=== PATIENT | male | born 1955 | race African-American/Black ===

== ENCOUNTER → 2016-07-07 | Outpatient (CLI) | payer OTHER ==
[2016-07-07 12:13] LABS: APPEARANCE,URINE CLEAR; BILIRUBIN,URINE NEGATIVE (NEGATIVE); GLUCOSE, URINE 150 mg/dL (NEGATIVE); KETONES,URINE NEGATIVE (NEGATIVE); LEUKOCYTE ESTERASE,URINE NEGATIVE (NEGATIVE); NITRITE,URINE NEGATIVE (NEGATIVE); PROTEIN,URINE NEGATIVE (NEGATIVE); UROBILINOGEN,URINE NEGATIVE mg/dL (<2.0)
[2016-07-07 12:24] LABS: ABSOLUTE EOSINOPHILS # (AUTO) 0.1 10^3/uL (0.0-0.6); ABSOLUTE LYMPHOCYTES (AUTO) 1.9 10^3/uL (0.5-4.7); ABSOLUTE MONOCYTES (AUTO) 0.7 10^3/uL (0.1-1.4); ABSOLUTE NEUT (AUTO) 5.1 10^3/uL (1.7-8.2); BASOPHILS % (AUTO) 0.5 % (0-2); EOSINOPHILS % (AUTO) 1.3 % (0-6); LYMPHOCYTES % (AUTO) 23.9 % (13-45); MEAN CORPUSCULAR HEMOGLOBIN 29.4 pg (27.0-33.4); MEAN CORPUSCULAR HGB CONC 33.3 g/dL (32.0-36.0); MEAN CORPUSCULAR VOLUME 88 fl (80-97); MONOCYTES % (AUTO) 9.3 % (3-13); RED BLOOD COUNT 4.77 10^6/uL (4.35-5.55); RED CELL DISTRIBUTION WIDTH 14.2 % (11.5-14.0); WHITE BLOOD COUNT 7.8 10^3/uL (4.0-10.5)
[2016-07-07 12:41] LABS: ANION GAP 12 (5-19); BLOOD UREA NITROGEN 12 mg/dL (7-20); CALCIUM 9.2 mg/dL (8.4-10.2); CARBON DIOXIDE 29 mmol/L (22-30); CHLORIDE 97 mmol/L (98-107); CREATININE RESULT 0.66 mg/dL (0.52-1.25); GLUCOSE 209 mg/dL (75-110); POTASSIUM 4.6 mmol/L (3.6-5.0); SODIUM 137.8 mmol/L (137-145)
--- NOTE | 2016-07-07 20:21 | EKG REPORT ---
SEVERITY:- BORDERLINE ECG - SINUS RHYTHM PROBABLE LEFT ATRIAL ABNORMALITY BORDERLINE T ABNORMALITIES, INFERIOR LEADS : Confirmed by: Brad Piper 07-Jul-2016 20:21:10
== END ==
LOC: OD 10:34
PROVIDERS: ATTEND Orthopaedic Surgery
DX: Z01.818 Encounter for other preprocedural examination (principal); Z01.810 Encounter for preprocedural cardiovascular examination; Z01.811 Encounter for preprocedural respiratory examination; Z01.812 Encounter for preprocedural laboratory examination
CPT/HCPCS: 36415; 71020; 80048; 81001; 83036; 85025; 93005; 93010

== ENCOUNTER 2016-07-17 04:11 | Emergency (ER) | payer OTHER ==
[2016-07-17] MEDS ORDERED: METHYLPREDNISOLONE INJ 125 MG/2 ML SDV IV ONE (04:52)
[2016-07-17] MEDS ORDERED: IPRATROPIUM/ALBUTEROL 0.5-2.5 MG/3 ML AMPUL NEB ONE ×2 (04:53→05:58)
[2016-07-17 05:55] LABS: ABSOLUTE EOSINOPHILS # (AUTO) 0.1 10^3/uL (0.0-0.6); ABSOLUTE LYMPHOCYTES (AUTO) 1.7 10^3/uL (0.5-4.7); ABSOLUTE MONOCYTES (AUTO) 0.6 10^3/uL (0.1-1.4); ABSOLUTE NEUT (AUTO) 4.9 10^3/uL (1.7-8.2); BASOPHILS % (AUTO) 0.6 % (0-2); HEMATOCRIT 39.6 % (37.9-51.0); HEMOGLOBIN 12.9 g/dL (13.5-17.0); HGB HCT DIFFERENCE -0.9; LYMPHOCYTES % (AUTO) 23.7 % (13-45); MEAN CORPUSCULAR HEMOGLOBIN 29.2 pg (27.0-33.4); MEAN CORPUSCULAR HGB CONC 32.6 g/dL (32.0-36.0); MEAN CORPUSCULAR VOLUME 89 fl (80-97); MONOCYTES % (AUTO) 8.3 % (3-13); RED BLOOD COUNT 4.43 10^6/uL (4.35-5.55); RED CELL DISTRIBUTION WIDTH 14.1 % (11.5-14.0); SEGMENTED NEUTROPHILS % (AUTO) 66.4 % (42-78); WHITE BLOOD COUNT 7.3 10^3/uL (4.0-10.5)
--- NOTE | 2016-07-17 06:35 | ER Document Report ---
ED Respiratory Problem - General Chief Complaint: Breathing Difficulty Stated Complaint: BREATHING DIFFICULTY Mode of Arrival: Ambulatory Information source: Patient Notes: 60 y/o M with hx of COPD presents to ED c/o shortness of breath. Pt reports woke up this morning at approximately 0300 sob not improved with home nebulizer. Reports has had productive cough over the last 2 days with whitish productive sputum. Reports usually has cough but sputum seems to be more than usual. Denies fever, chest pain, hemoptysis, n/v. TRAVEL OUTSIDE OF THE [place] IN LAST 30 DAYS: No - HPI Patient complains to provider of: COPD, Cough, Short of breath Onset: This morning Duration: Worse/persistent Initiating Event: URI Quality of pain: No pain Severity: Mild Pain Level: Denies Context: Hx COPD Short of Breath: Mild Cough: Productive Sputum amount: Small Sputum color: White At home treatment: Bronchodilators, Inhaled steroids Similar symptoms previously: Yes Recently seen / treated by doctor: No - Related Data Allergies/Adverse Reactions: codeine [Codeine] Allergy (Severe, Verified 07/17/16 04:26) Facial swelling hydrocodone bitartrate [From Vicodin] Allergy (Severe, Verified 07/17/16 04:26) Anaphylaxis acetaminophen [From Tylenol] Allergy (Verified 07/17/16 04:26) aspirin [Aspirin] Allergy (Verified 07/17/16 04:26) morphine [Morphine] Allergy (Verified 07/17/16 04:26) Past Medical History - General Information source: Patient - Social History Smoking Status: Former Smoker Chew tobacco use (# tins/day): No Frequency of alcohol use: None Drug Abuse: None Lives with: Family Family History: Arthritis, CAD - Mother and brother, CVA, DM, Hyperlipidemia, Hypertension, Malignancy Patient has suicidal ideation: No Patient has homicidal ideation: No - Past Medical History Cardiac Medical History: Reports: Hx Atrial Fibrillation, Hx Congestive Heart Failure, Hx Hypercholesterolemia, Hx Hypertension Pulmonary Medical History: Reports: Hx Asthma, Hx COPD, Hx Tuberculosis Neurological Medical History: Reports: Hx Cerebrovascular Accident Endocrine Medical History: Reports: Hx Diabetes Mellitus Type 2 Renal/ Medical History: Denies: Hx Peritoneal Dialysis GI Medical History: Reports: Hx Hepatitis - Hep C Musculoskeltal Medical History: Reports Hx Arthritis, Reports Hx Musculoskeletal Deformity, Reports Hx Musculoskeletal Trauma Psychiatric Medical History: Denies: Hx Depression Traumatic Medical History: Reports: Hx Fractures, Hx Spine Fracture Infectious Medical History: Reports: Hx Hepatitis - Hep C Past Surgical History: Reports: Hx Abdominal Surgery - Hernia repair, bowel resection, Hx Appendectomy, Hx Herniorrhaphy, Hx Oral Surgery, Hx Orthopedic Surgery - Spinal fusion. Meniscus repair. - Immunizations Immunizations up to date: Yes Hx Diphtheria, Pertussis, Tetanus Vaccination: Yes Hx Pneumococcal Vaccination: 04/12/13 Review of Systems - Review of Systems Constitutional: No symptoms reported EENT: No symptoms reported Cardiovascular: No symptoms reported Respiratory: See HPI Gastrointestinal: No symptoms reported Genitourinary: No symptoms reported Male Genitourinary: No symptoms reported Musculoskeletal: No symptoms reported Skin: No symptoms reported Hematologic/Lymphatic: No symptoms reported Neurological/Psychological: No symptoms reported -: Yes All other systems reviewed and negative Physical Exam - Vital signs Vitals: Temp Pulse Resp BP Pulse Ox 98.4 F 106 H 18 115/77 91 L 07/17/16 04:20 07/17/16 04:20 07/17/16 04:20 07/17/16 04:20 07/17/16 04:20 - General General appearance: Alert In distress: None - HEENT Head: Normocephalic, Atraumatic Eyes: Normal Pupils: PERRL - Respiratory Respiratory status: No respiratory distress. No: Labored, Tachypnea, Tripod position Chest status: Nontender, No pleuritic chest pain. No: Pain with cough, Pain with deep breathing Breath sounds: Productive cough, Rhonchi - mild scattered bilaterally, Wheezing - mild expiratory Chest palpation: Normal. No: Purulent sputum - Cardiovascular Rhythm: Regular Heart sounds: Normal auscultation Murmur: No Pulses: Normal: Radial Normal capillary refill: Yes - Abdominal Inspection: Normal, Obese Distension: No distension Bowel sounds: Normal Tenderness: Nontender Organomegaly: No organomegaly - Back Back: Normal, Nontender - Extremities General upper extremity: Normal inspection, Nontender, Normal color, Normal ROM , Normal strength, Normal temperature. No: Edema General lower extremity: Normal inspection, Nontender, Normal color, Normal ROM , Normal strength, Normal temperature, Normal weight bearing. No: Edema, Bereket' s sign - Neurological Neuro grossly intact: Yes Cognition: Normal Orientation: AAOx4 [place] Coma Scale Eye Opening: Spontaneous [place] Coma Scale Verbal: Oriented Juancarlos Coma Scale Motor: Obeys Commands Juancarlos Coma Scale Total: 15 Speech: Normal Motor strength normal: LUE, RUE, LLE, RLE Sensory: Normal - Skin Skin Temperature: Warm Skin Moisture: Dry Skin Color: Normal Course - Re-evaluation Re-evalutation: 07/17/16 06:49 Pt hemodynamically stable, in no distress, afebrile. chest xray unremarkable shows chronic scarring with no pneumonia or other significant findings. Pt received 125 mg Solumedrol and two DuoNeb treatments. Wheezing and ronchi resolved. Pt able to ambulate independently and speak in full sentences on room air without dyspnea or desaturation. States feels much better and would like to go home. Hyperglycemia on CMP pt reports has not taken home meds this morning. Pt appears stable for discharge and agrees with home care, follow-up, and strict ED return precautions. - Vital Signs Vital signs: Temp Pulse Resp BP Pulse Ox 97.3 F 104 H 24 H 131/68 H 93 07/17/16 06:56 07/17/16 06:56 07/17/16 06:56 07/17/16 06:56 07/17/16 06:56 Selected Entries 07/17/16 07/17/16 04:25 04:53 O2 Sat by Pulse 95 100 Oximetry - Laboratory Result Diagrams: 07/17/16 05:35 07/17/16 06:22 Laboratory results interpreted by me: 07/17/16 07/17/16 05:35 06:22 Hgb 12.9 L RDW 14.1 H Glucose 249 H Calcium 8.0 L - Diagnostic Test Radiology reviewed: Image reviewed, Reports reviewed Discharge - Discharge Clinical Impression: COPD exacerbation Condition: Stable Disposition: HOME, SELF-CARE Instructions: Chronic Obstructive Lung Disease ([facility]), Inhaled Bronchodilators ( [facility]), Azithromycin ([facility]), Steroid Medication Additional Instructions: Drink plenty of fluids. Continue using your home inhalers as directed by your primary care provider. Follow-up with your primary care provider in the next 1-2 days. Return to the Emergency Department for any return of or worsening symptoms or any concerns. Prescriptions: Azithromycin [Zithromax 250 mg Tablet] 250 mg PO ASDIR PRN #6 tablet PRN Reason: Prednisone [Deltasone 10 mg Tablet] 10 mg PO ASDIR PRN #21 tablet PRN Reason: Forms: Elevated Blood Pressure
[2016-07-17 06:54] LABS: ALANINE AMINOTRANSFERASE 27 U/L (21-72); ALBUMIN 3.5 g/dL (3.5-5.0); ALKALINE PHOSPHATASE 89 U/L (38-126); ANION GAP 11 (5-19); ASPARTATE AMINO TRANSFERASE 21 U/L (17-59); BILIRUBIN,DIRECT 0.2 mg/dL (0.0-0.4); BILIRUBIN,TOTAL 0.4 mg/dL (0.2-1.3); BLOOD UREA NITROGEN 12 mg/dL (7-20); CARBON DIOXIDE 26 mmol/L (22-30); CHLORIDE 102 mmol/L (98-107); CREATININE RESULT 0.59 mg/dL (0.52-1.25); GLUCOSE 249 mg/dL (75-110); POTASSIUM 4.3 mmol/L (3.6-5.0); SODIUM 139.1 mmol/L (137-145); TOTAL PROTEIN 6.3 g/dL (6.3-8.2)
[2016-07-17 06:57] VITALS: BP 131/68
== END 2016-07-17 07:16 | disposition home or self-care (01) ==
LOC: ER 04:11
DX: J44.1 Chronic obstructive pulmonary disease with (acute) exacerbation (principal); I48.91 Unspecified atrial fibrillation; I50.9 Heart failure, unspecified; E78.00 Pure hypercholesterolemia, unspecified; I11.0 Hypertensive heart disease with heart failure; E11.9 Type 2 diabetes mellitus without complications; Z86.73 Personal history of transient ischemic attack (TIA), and cerebral infarction without residual deficits; Z86.19 Personal history of other infectious and parasitic diseases; Z86.11 Personal history of tuberculosis; Z88.6 Allergy status to analgesic agent; Z98.1 Arthrodesis status
CPT/HCPCS: 94640 ×2; 99285; 96374; 36415; 85025; 80053; 71020; J2930; J7620

== ENCOUNTER 2016-07-22 01:13 | Emergency (ER) | payer OTHER ==
[2016-07-22] MEDS ORDERED: FLUCONAZOLE 100 MG TABLET PO ONE (03:11)
[2016-07-22] MEDS ORDERED: NYSTATIN 500000 UNIT/5 ML UDCUP PO ONE (03:12)
--- NOTE | 2016-07-22 03:37 | ER Document Report ---
ED General - General Chief Complaint: Sore Throat Stated Complaint: DIFFICULTY BREATHING Time seen by provider: 03:02 Mode of Arrival: Ambulatory Information source: Patient TRAVEL OUTSIDE OF THE [place] IN LAST 30 DAYS: No - HPI Notes: Patient with history of end-stage renal disease, peritoneal dialysis, COPD, diabetes presents with a report that he had a recent cough congestion 5 days ago and was seen and given steroids and Zithromax. Since taking these medications he now has recurrence of thrush which he has had before. He reports white plaques in his mouth and some mild pain with swallowing. He denies any difficulty breathing, chest pain, fever, chills. He states his cough and congestion is improved. - Related Data Allergies/Adverse Reactions: codeine [Codeine] Allergy (Severe, Verified 07/17/16 04:26) Facial swelling hydrocodone bitartrate [From Vicodin] Allergy (Severe, Verified 07/17/16 04:26) Anaphylaxis Past Medical History - Social History Smoking Status: Unknown if Ever Smoked Cigarette use (# per day): No Frequency of alcohol use: None Drug Abuse: None Lives with: Family Family History: Arthritis, CAD - Mother and brother, CVA, DM, Hyperlipidemia, Hypertension, Malignancy Patient has suicidal ideation: No Patient has homicidal ideation: No - Past Medical History Cardiac Medical History: Reports: Hx Atrial Fibrillation, Hx Congestive Heart Failure, Hx Hypercholesterolemia, Hx Hypertension Pulmonary Medical History: Reports: Hx Asthma, Hx COPD, Hx Tuberculosis Neurological Medical History: Reports: Hx Cerebrovascular Accident Endocrine Medical History: Reports: Hx Diabetes Mellitus Type 2 Renal/ Medical History: Denies: Hx Peritoneal Dialysis GI Medical History: Reports: Hx Hepatitis - Hep C Musculoskeltal Medical History: Reports Hx Arthritis, Reports Hx Musculoskeletal Deformity, Reports Hx Musculoskeletal Trauma Psychiatric Medical History: Denies: Hx Depression Traumatic Medical History: Reports: Hx Fractures, Hx Spine Fracture Infectious Medical History: Reports: Hx Hepatitis - Hep C Past Surgical History: Reports: Hx Abdominal Surgery - Hernia repair, bowel resection, Hx Appendectomy, Hx Herniorrhaphy, Hx Oral Surgery, Hx Orthopedic Surgery - Spinal fusion. Meniscus repair. - Immunizations Immunizations up to date: Yes Hx Diphtheria, Pertussis, Tetanus Vaccination: Yes Hx Pneumococcal Vaccination: 04/12/13 Review of Systems - Review of Systems Notes: REVIEW OF SYSTEMS: CONSTITUTIONAL : Denies fever, chills, or sweats. Denies recent illness. EENT: Denies eye, ear pain or symptoms. Denies nasal or sinus congestion or discharge. Mild pain on swallowing. CARDIOVASCULAR: Denies chest pain. Denies palpitations or racing or irregular heart beat. Denies ankle edema. RESPIRATORY: Denies cough, cold, or chest congestion. Denies shortness of breath, difficulty breathing. Occasional wheezing related to COPD history GASTROINTESTINAL: Denies abdominal pain or distention. Denies nausea, vomiting , or diarrhea. Denies blood in vomitus, stools, or per rectum. Denies black, tarry stools. Denies constipation. GENITOURINARY: Denies difficulty urinating, painful urination, burning, frequency, blood in urine, or discharge. MUSCULOSKELETAL: Denies back or neck pain or stiffness. Denies joint pain or swelling. SKIN: Denies rash, lesions or sores. HEMATOLOGIC : Denies easy bruising or bleeding. LYMPHATIC: Denies swollen, enlarged glands. NEUROLOGICAL: Denies confusion or altered mental status. Denies passing out or loss of consciousness. Denies dizziness or lightheadedness. Denies headache. Denies weakness or paralysis or loss of use of either side. Denies problems with gait or speech. Denies sensory loss, numbness, or tingling. Denies seizures. PSYCHIATRIC: Denies anxiety or stress. Denies depression, suicidal ideation, or homicidal ideation. ALL OTHER SYSTEMS REVIEWED AND NEGATIVE. Dictation was performed using [employer] voice recognition software Physical Exam - Vital signs Vitals: Temp Pulse Resp BP Pulse Ox 98.7 F 102 H 20 123/72 93 07/22/16 01:19 07/22/16 01:19 07/22/16 01:19 07/22/16 01:19 07/22/16 01:19 - Notes Notes: PHYSICAL EXAMINATION: GENERAL: Well-appearing, well-nourished and in no acute distress. HEAD: Atraumatic, normocephalic. EYES: Pupils equal round and reactive to light, extraocular movements intact, sclera anicteric, conjunctiva are normal. ENT: Nares patent, Moist mucous membranes. Oral thrush noted. No significant tongue swelling or posterior pharyngeal swelling. No evidence for Ar's. NECK: Normal range of motion, supple without lymphadenopathy LUNGS: Breath sounds clear to auscultation bilaterally and equal. No wheezes rales or rhonchi. HEART: Regular rate and rhythm without murmurs ABDOMEN: Soft, nontender, nondistended abdomen. No guarding, no rebound. No masses appreciated. Obese Musculoskeletal: Normal range of motion. No cyanosis. Trace bilateral lower extremity edema. NEUROLOGICAL: Cranial nerves grossly intact. Normal speech, normal gait. Normal sensory, motor exams PSYCH: Normal mood, normal affect. SKIN: Warm, Dry, normal turgor, no rashes or lesions noted. Course - Re-evaluation Re-evalutation: 07/22/16 03:35 Patient given nystatin and by mouth Diflucan. Blood sugar just under 300. 07/22/16 03:38 Hopefully, the thrush will also improve related to getting further out from the Zithromax antibiotic and the prednisone prescription. - Vital Signs Vital signs: Temp Pulse Resp BP Pulse Ox 98.7 F 102 H 20 123/72 93 07/22/16 01:19 07/22/16 01:19 07/22/16 01:19 07/22/16 01:19 07/22/16 01:19 - Laboratory Laboratory results interpreted by me: 07/22/16 03:05 POC Glucose 299 H Discharge - Discharge Clinical Impression: Thrush, Hyperglycemia, Destinee esophagitis Condition: Stable Disposition: HOME, SELF-CARE Additional Instructions: Oral Thrush You have thrush. This is a yeast infection of the mucous membranes in the mouth, caused by an organism called destinee. Typical symptoms are redness, tenderness, and white spots "stuck" on the membranes. Thrush often occurs after treatment with antibiotics, particularly in infants. In adults, the infection is unusual. It usually requires further evaluation for a possible hidden disease such as diabetes or a problem with the immune system. Thrush is treated with antifungal medication. The medicine is rubbed into the cheeks. Several days are required for healing. You should return if you do not improve as expected, or if any new or unusual symptoms develop. Watch her blood sugars closely. Drink plenty of water. Prescriptions: Nystatin [Mycostatin 500,000 Unit/5 ml Susp Udcup] 500,000 unit PO QID 20 Days
[2016-07-22 04:06] VITALS: BP 113/75
== END 2016-07-22 04:00 | disposition home or self-care (01) ==
LOC: ER 01:13
DX: J02.9 Acute pharyngitis, unspecified (principal); R06.00 Dyspnea, unspecified; B37.0 Candidal stomatitis; B37.81 Candidal esophagitis; E11.65 Type 2 diabetes mellitus with hyperglycemia; E11.22 Type 2 diabetes mellitus with diabetic chronic kidney disease; I13.2 Hypertensive heart and chronic kidney disease with heart failure and with stage 5 chronic kidney disease, or end stage renal disease; I50.9 Heart failure, unspecified; N18.6 End stage renal disease; I48.91 Unspecified atrial fibrillation; E78.00 Pure hypercholesterolemia, unspecified; J44.9 Chronic obstructive pulmonary disease, unspecified; Z86.19 Personal history of other infectious and parasitic diseases; Z86.73 Personal history of transient ischemic attack (TIA), and cerebral infarction without residual deficits; Z98.1 Arthrodesis status; Z88.6 Allergy status to analgesic agent; Z99.2 Dependence on renal dialysis
CPT/HCPCS: 82962; 99283

== ENCOUNTER 2016-08-03 07:02 | Inpatient (IN) | payer OTHER ==
[2016-08-20 12:39] LABS: HEMOGLOBIN 14.4 g/dL (13.5-17.0); HGB HCT DIFFERENCE -1.8; MEAN CORPUSCULAR HEMOGLOBIN 29.2 pg (27.0-33.4); MEAN CORPUSCULAR HGB CONC 32.1 g/dL (32.0-36.0); MEAN CORPUSCULAR VOLUME 91 fl (80-97); RED BLOOD COUNT 4.94 10^6/uL (4.35-5.55); RED CELL DISTRIBUTION WIDTH 13.9 % (11.5-14.0); WHITE BLOOD COUNT 8.1 10^3/uL (4.0-10.5)
[2016-08-20 12:43] LABS: APPEARANCE,URINE CLEAR; BILIRUBIN,URINE NEGATIVE (NEGATIVE); GLUCOSE, URINE NEGATIVE (NEGATIVE); KETONES,URINE NEGATIVE (NEGATIVE); LEUKOCYTE ESTERASE,URINE NEGATIVE (NEGATIVE); NITRITE,URINE NEGATIVE (NEGATIVE); PROTEIN,URINE NEGATIVE (NEGATIVE); URINE SPECIFIC GRAVITY 1.004; UROBILINOGEN,URINE NEGATIVE mg/dL (<2.0)
[2016-08-20 12:56] LABS: ANION GAP 16 (5-19); BLOOD UREA NITROGEN 9 mg/dL (7-20); CALCIUM 9.2 mg/dL (8.4-10.2); CARBON DIOXIDE 25 mmol/L (22-30); CHLORIDE 98 mmol/L (98-107); CREATININE RESULT 0.72 mg/dL (0.52-1.25); GLUCOSE 190 mg/dL (75-110); POTASSIUM 4.3 mmol/L (3.6-5.0); SODIUM 138.8 mmol/L (137-145)
[2016-09-12] MEDS ORDERED: LIDOCAINE 0.5% INJ-PF (5 MG/ML) 50 ML SDV SUBCUT PRN (05:00)
[2016-09-14] MEDS ORDERED: IBUPROFEN 800 MG/NS 250 ML IV PRN ×2 (05:00)
[2016-09-14] MEDS ORDERED: NORMAL SALINE 1000 ML (RENAL PATIENTS) IV PRN (05:00)
[2016-09-14] MEDS ORDERED: LANSOPRAZOLE 15 MG TAB.RAP.DR PO PRN (05:00)
[2016-09-14] MEDS ORDERED: CEFAZOLIN INJ 1 GM VIAL IV PRN (05:00)
[2016-09-14] MEDS ORDERED: SCOPOLAMINE HYDROBROMIDE 1.5 MG PATCH.TD72 TOP PRN (05:00)
[2016-09-14] MEDS ORDERED: OXYCODONE HCL SR 10 MG TABLET PO PRN (05:00)
[2016-09-14] MEDS ORDERED: BUPIVACAINE INJ/PF LIPOSOME/PF 266 MG/20 ML SDV IJ PRN (05:00)
[2016-09-14] MEDS ORDERED: VANCOMYCIN HCL 1,000 MG in DEXTROSE 5%-WATER 250 ML IV PRN (05:00)
[2016-09-14] MEDS ORDERED: THROMBIN (BOVINE) TOPICAL 20000 UNIT VIAL ONE (08:58)
[2016-09-14] MEDS ORDERED: BUPIVACAINE INJ/PF LIPOSOME/PF 266 MG/20 ML SDV ONE (08:58)
[2016-09-14] MEDS ORDERED: THROMBIN (BOVINE) 5000 UNIT EPITAXIS KIT ONE (08:58)
[2016-09-14 08:59] LABS: POTASSIUM 4.6 mmol/L (3.6-5.0)
[2016-09-14] MEDS ORDERED: MIDAZOLAM 2 MG/2 ML INJ ONE (09:03)
[2016-09-14] MEDS ORDERED: TRANEXAMIC ACID INJ/PF 1,000 MG/10 ML SDV IV ONE ×2 (09:04→13:00)
[2016-09-14] MEDS ORDERED: FENTANYL CITRATE INJ/PF 100 MCG/2 ML AMPUL ONE (09:04)
[2016-09-14] MEDS ORDERED: PROPOFOL INJ 200 MG/20 ML VIAL IV ONE (09:04)
[2016-09-14 09:06] LABS: PROTHROMBIN TIME 11.8 SEC (11.4-15.4)
[2016-09-14] MEDS ORDERED: PROMETHAZINE HCL INJ 25 MG/1 ML VIAL IV PRN ×2 (10:00)
[2016-09-14] MEDS ORDERED: FENTANYL CITRATE INJ/PF 100 MCG/2 ML AMPUL IV PRN ×3 (10:00)
[2016-09-14] MEDS ORDERED: MEPERIDINE HCL/PF INJ 25 MG/1 ML DISP.SYRIN IV PRN (10:00)
[2016-09-14] MEDS ORDERED: DIPHENHYDRAMINE HCL 50 MG/ML VIAL IV PRN (10:00)
[2016-09-14] MEDS ORDERED: ONDANSETRON HCL INJ/PF 4 MG/2 ML SDV IV PRN ×3 (10:00→14:58)
--- NOTE | 2016-09-14 11:13 | Operative Report ---
Operative Report DATE OF SURGERY: 09/14/16 PREOPERATIVE DIAGNOSIS: Left knee arthritis OPERATION: Knee arthroplasty SURGEON: KENYETTA LAI ANESTHESIA: Spinal TISSUE REMOVED OR ALTERED: Bone to pathology ESTIMATED BLOOD LOSS: 100 PROCEDURE: Implants used: Femur: Vladimir #7 triathlon CR femur Tibia: #7 tibia Tibial liner: 9 mm CS insert Patella: 38 mm oval patella Procedure with the patient supine on the operating table the left the limb is prepped and draped in a sterile fashion. The limb was elevated for exsanguination and the tourniquet inflated to 280 torr. A standard midline median parapatellar approach the knee is taken. Access is gained to the femoral canal through the intercondylar notch. Intramedullary alignment instrumentation used to resect 10 mm of distal femur in 5 of valgus. Sizing guide indicated a size 7 femur. Appropriate cutting jig is then used to fashion anterior posterior and chamfer cuts. A trial reduction femurs performed and this is judged to be adequate. Attention was next turned to the tibia. Using an extra medullary alignment system 9 millimeters was resected off the lateral tibial plateau. This is sized to a size 7 tibia. A trial reduction was now performed with a 7 femur and a 7 tibia using a 9 millimeters spacer. It is full extension and central patellofemoral tracking. The articular surface the patella was next resected using an oscillating saw. All trial implants were removed. Polymethylmethacrylate is mixed and used to cement the above implants in place. On adequate curing the cement excess cement was removed the tourniquet was deflated hemostasis obtained the wound is then closed in layers using interrupted Vicryl followed by ever. A sterile compressive dressing was applied and the patient returned to recovery room in satisfactory condition.
[2016-09-14] MEDS ORDERED: MORPHINE SULFATE 10 MG/ML INJ IV PRN ×3 (11:16)
[2016-09-14] MEDS ORDERED: MORPHINE SULFATE 10 MG/ML INJ IM PRN (11:16)
[2016-09-14] MEDS ORDERED: RINGERS SOLUTION,LACTATED 1,000 ML IV PRN (11:16)
[2016-09-14] MEDS ORDERED: ACETAMINOPHEN 325 MG TABLET PO PRN (11:16)
[2016-09-14] MEDS ORDERED: ZOLPIDEM TARTRATE 5 MG TABLET PO PRN (11:16)
[2016-09-14] MEDS ORDERED: MAG HYDROX/AL HYDROX/SIMETH SUSP 30 ML UDCUP PO PRN (11:16)
[2016-09-14] MEDS ORDERED: ONDANSETRON 4 MG TAB.RAPDIS PO PRN (11:16)
[2016-09-14] MEDS ORDERED: DEXTROSE 40% GEL 15 GM TUBE PO PRN (11:47)
[2016-09-14] MEDS ORDERED: GLUCAGON,HUMAN RECOMB 1 MG INJ IM PRN (11:47)
[2016-09-14] MEDS ORDERED: DEXTROSE 40% GEL 15 GM TUBE X 2 PO PRN (11:47)
[2016-09-14] MEDS ORDERED: DEXTROSE 50%-WATER SYRINGE 12.5 GM/25 ML DOSE IV PRN (11:47)
[2016-09-14] MEDS ORDERED: DEXTROSE 50%-WATER SYRINGE 25 GM/50 ML DOSE IV PRN (11:47)
[2016-09-14] MEDS ORDERED: GLYCOPYRROLATE INJ 0.4 MG/2 ML VIAL ONE (12:30)
[2016-09-14] MEDS ORDERED: ONDANSETRON HCL INJ/PF 4 MG/2 ML SDV ONE (12:30)
[2016-09-14] MEDS ORDERED: LIDOCAINE 2% INJ-PF (20 MG/ML) 10 ML AMPUL ONE (12:30)
--- NOTE | 2016-09-14 13:14 | RADIOLOGY REPORT (SQ) ---
EXAM DESCRIPTION: KNEE LEFT 2 VIEWS COMPLETED DATE/TIME: 09/14/2016 12:55 pm REASON FOR STUDY: Post OP -Long Cassette in PACU M17.12 UNILATERAL PRIMARY OSTEOARTHRITIS, LEFT KNE E COMPARISON: None. NUMBER OF VIEWS: Two views TECHNIQUE: Digital radiographic images of the left knee post-procedure. LIMITATIONS: None. FINDINGS: BONES: No worrisome or unexpected findings post-procedure. DEVICE: Left total knee replacement with patellar resurfacing. SOFT TISSUES: No worrisome findings. Expected postoperative soft tissue changes. IMPRESSION: SATISFACTORY POSTOPERATIVE LEFT KNEE. TECHNICAL DOCUMENTATION: JOB ID: [id number] [employer]- All Rights Reserved
[2016-09-14] MEDS: INSULIN LISPRO 100 UNIT/ML 3 ML VIAL SUBCUT PRN ×2 (14:06→21:25)
[2016-09-14] MEDS: OXYCODONE HCL IR 5 MG TABLET PO PRN ×2 (14:56→23:52)
[2016-09-14] MEDS: IBUPROFEN 800 MG in NORMAL SALINE 250 ML IV SCH (17:06)
[2016-09-14] MEDS: METFORMIN HCL 500 MG TABLET PO SCH (17:07)
[2016-09-14] MEDS: SENNOSIDES/DOCUSATE 8.6-50 MG 1 EACH TABLET PO SCH (17:08)
[2016-09-14] MEDS: PREGABALIN 75 MG CAPSULE PO SCH (17:08)
[2016-09-14] MEDS ORDERED: HYDROMORPHONE HCL INJ/PF 2 MG/ML AMPULE IV PRN (17:55)
[2016-09-14] MEDS: DIPHENHYDRAMINE HCL 50 MG/ML VIAL IV PRN (18:42)
[2016-09-14] MEDS: ATORVASTATIN CALCIUM 10 MG TABLET PO SCH (21:16)
[2016-09-14] MEDS: AMITRIPTYLINE HCL 25 MG TABLET PO SCH (21:16)
[2016-09-14] MEDS: METOPROLOL TARTRATE 25 MG TABLET PO SCH (21:16)
[2016-09-14] MEDS: DOXAZOSIN MESYLATE 2 MG TABLET PO SCH (21:16)
[2016-09-14] MEDS: FAMOTIDINE 20 MG TABLET PO SCH (21:17)
[2016-09-14] MEDS: RIVAROXABAN 10 MG TABLET PO SCH (21:17)
[2016-09-14] MEDS ORDERED: (PENDING PHARMACY ID) (Ranitidine Hcl [Ranitidine Hcl] 150 MG) PO SCH (22:00)
[2016-09-14] MEDS ORDERED: OXYCODONE HCL SR 10 MG TABLET PO SCH (22:00)
[2016-09-14] MEDS ORDERED: (PENDING PHARMACY ID) (Pravastatin Sodium [Pravastatin Sodium] 20 MG) PO SCH (22:00)
[2016-09-14] MEDS ORDERED: (PENDING PHARMACY ID) (Terazosin Hcl [Terazosin Hcl] 2 MG) PO SCH (22:00)
[2016-09-14] MEDS ORDERED: VANCOMYCIN HCL 1,000 MG in DEXTROSE 5%-WATER 250 ML IV ONE (23:00)
[2016-09-15] MEDS: IBUPROFEN 800 MG in NORMAL SALINE 250 ML IV SCH ×3 (03:04→17:36)
[2016-09-15] MEDS: DIPHENHYDRAMINE HCL 50 MG/ML VIAL IV PRN (05:20)
[2016-09-15 06:14] LABS: HEMATOCRIT 36.2 % (37.9-51.0); HEMOGLOBIN 11.6 g/dL (13.5-17.0); HGB HCT DIFFERENCE -1.4; MEAN CORPUSCULAR HEMOGLOBIN 29.2 pg (27.0-33.4); MEAN CORPUSCULAR HGB CONC 32.1 g/dL (32.0-36.0); MEAN CORPUSCULAR VOLUME 91 fl (80-97); RED BLOOD COUNT 3.98 10^6/uL (4.35-5.55); RED CELL DISTRIBUTION WIDTH 13.8 % (11.5-14.0)
[2016-09-15 06:28] LABS: ANION GAP 6 (5-19); BLOOD UREA NITROGEN 14 mg/dL (7-20); CALCIUM 7.8 mg/dL (8.4-10.2); CARBON DIOXIDE 27 mmol/L (22-30); CHLORIDE 100 mmol/L (98-107); GLUCOSE 202 mg/dL (75-110); POTASSIUM 5.1 mmol/L (3.6-5.0); SODIUM 132.8 mmol/L (137-145)
--- NOTE | 2016-09-15 06:52 | PDOC PROGRESS REPORT ---
Subjective Progress Note for:: 09/15/16 Subjective:: Patient is sleeping soundly through a dressing change Physical Exam Vital Signs: Temp Pulse Resp BP Pulse Ox 36.4 C 92 20 92/65 L 94 09/15/16 03:34 09/15/16 03:34 09/15/16 03:34 09/15/16 03:34 09/15/16 03:34 Intake & Output 09/13/16 09/14/16 09/15/16 06:59 06:59 06:59 Intake Total 4778 Output Total 3375 Balance 1403 Weight 137.4 kg General appearance: PRESENT: no acute distress Head exam: PRESENT: normocephalic Respiratory exam: PRESENT: unlabored Additional comments: Significant sleep apnea Cardiovascular exam: PRESENT: RRR Vascular exam: PRESENT: normal capillary refill GI/Abdominal exam: PRESENT: soft Rectal exam: PRESENT: deferred Extremities exam: PRESENT: other - Patient has removed his left lower extremity dressing overnight. A new picot dressing has been applied morning. Skin exam: PRESENT: dry, intact, warm. ABSENT: cyanosis, rash Results Laboratory Results: 09/15/16 06:01 09/15/16 06:01 09/14/16 09/15/16 09/15/16 08:37 06:01 06:01 WBC 11.0 H RBC 3.98 L Hgb 11.6 L Hct 36.2 L MCV 91 MCH 29.2 MCHC 32.1 RDW 13.8 Plt Count 110 L Sodium 132.8 L Potassium 4.6 5.1 H Chloride 100 Carbon Dioxide 27 Anion Gap 6 BUN 14 Creatinine 0.70 Est GFR ( Amer) > 60 Est GFR (Non-Af Amer) > 60 Glucose 157 H 202 H Calcium 7.8 L Impressions: Knee X-Ray 09/14/16 11:18 IMPRESSION: SATISFACTORY POSTOPERATIVE LEFT KNEE. Status: Imported from PACS Assessment & Plan - Diagnosis (1) Arthritis of knee, left Is this a current diagnosis for this admission?: YesPlan: Patient is a 60-year-old black male status post left knee arthroplasty postop day 1. Analgesia has been problematic and has been tongue swelling with oxycodone. Therefore I have discontinued Dilaudid, oxycodone, and OxyContin. Will attempt to get by with just tramadol. Progress with physical therapy has been rather limited in the patient's ambulating only 5 feet. (2) Diabetes Qualifiers: Diabetes mellitus type: type 2 Is this a current diagnosis for this admission?: YesPlan: Patient blood glucose has been controlled between 167 and 206 on the current medication regimen (3) Sleep apnea Is this a current diagnosis for this admission?: YesPlan: Patient refuses any intervention - Time Time Spent with patient: 15-24 minutes Anticipated discharge: Home with Homehealth Within: within 24 hours
[2016-09-15] MEDS ORDERED: AMLODIPINE BESYLATE 10 MG TABLET PO SCH (08:00)
[2016-09-15] MEDS ORDERED: ASCORBIC ACID 500 MG TABLET PO SCH (08:00)
[2016-09-15] MEDS ORDERED: ASCORBIC ACID PO SCH (08:00)
[2016-09-15] MEDS ORDERED: HYDROCHLOROTHIAZIDE 25 MG TABLET PO SCH (08:00)
[2016-09-15] MEDS ORDERED: (PENDING PHARMACY ID) (Omeprazole [Prilosec] 40 MG) PO SCH (08:00)
[2016-09-15] MEDS: LANSOPRAZOLE 30 MG TAB.RAP.DR PO SCH (08:45)
[2016-09-15] MEDS: TRAMADOL HCL 50 MG TABLET PO PRN ×3 (08:45→22:22)
[2016-09-15] MEDS: INSULIN LISPRO 100 UNIT/ML 3 ML VIAL SUBCUT PRN ×4 (08:57→22:29)
[2016-09-15] MEDS: FERROUS SULFATE 325 MG TABLET PO SCH (10:15)
[2016-09-15] MEDS: SENNOSIDES/DOCUSATE 8.6-50 MG 1 EACH TABLET PO SCH ×2 (10:15→17:35)
[2016-09-15] MEDS: PREGABALIN 75 MG CAPSULE PO SCH ×2 (10:15→17:35)
[2016-09-15] MEDS: ASCORBIC ACID 500 MG TABLET PO SCH (10:15)
[2016-09-15] MEDS: METFORMIN HCL 500 MG TABLET PO SCH ×2 (10:15→17:35)
[2016-09-15] MEDS: PRENATAL VITAMIN W-O CA NO5/FE FUMARATE/FA CAPSULE PO SCH (10:16)
[2016-09-15] MEDS: AMLODIPINE BESYLATE 10 MG TABLET PO SCH (13:13)
[2016-09-15] MEDS: METOPROLOL TARTRATE 25 MG TABLET PO SCH ×2 (13:14→22:22)
[2016-09-15] MEDS: HYDROCHLOROTHIAZIDE 25 MG TABLET PO SCH (13:14)
[2016-09-15] MEDS ORDERED: TRANEXAMIC ACID INJ/PF 1,000 MG/10 ML SDV IV ONE (15:00)
[2016-09-15] MEDS: ALBUTEROL SULFATE 0.042% NEB (1.25 MG/3 ML) AMPUL NEB PRN (17:18)
[2016-09-15] MEDS: AMITRIPTYLINE HCL 25 MG TABLET PO SCH (22:21)
[2016-09-15] MEDS: DOXAZOSIN MESYLATE 2 MG TABLET PO SCH (22:21)
[2016-09-15] MEDS: RIVAROXABAN 10 MG TABLET PO SCH (22:21)
[2016-09-15] MEDS: ATORVASTATIN CALCIUM 10 MG TABLET PO SCH (22:22)
[2016-09-15] MEDS: FAMOTIDINE 20 MG TABLET PO SCH (22:23)
[2016-09-16] MEDS: IBUPROFEN 800 MG in NORMAL SALINE 250 ML IV SCH ×2 (02:21→09:30)
[2016-09-16 05:00] LABS: HEMATOCRIT 31.7 % (37.9-51.0); HEMOGLOBIN 10.4 g/dL (13.5-17.0); HGB HCT DIFFERENCE -0.5; MEAN CORPUSCULAR HEMOGLOBIN 29.4 pg (27.0-33.4); MEAN CORPUSCULAR HGB CONC 32.8 g/dL (32.0-36.0); MEAN CORPUSCULAR VOLUME 90 fl (80-97); RED BLOOD COUNT 3.54 10^6/uL (4.35-5.55); RED CELL DISTRIBUTION WIDTH 13.4 % (11.5-14.0); WHITE BLOOD COUNT 9.4 10^3/uL (4.0-10.5)
--- NOTE | 2016-09-16 07:06 | PDOC PROGRESS REPORT ---
Subjective Progress Note for:: 09/16/16 Subjective:: Sleeping soundly Physical Exam Vital Signs: Temp Pulse Resp BP Pulse Ox 36.8 C 91 24 H 121/67 95 09/16/16 00:00 09/16/16 00:00 09/16/16 00:00 09/16/16 00:00 09/16/16 00:00 Intake & Output 09/15/16 09/16/16 09/17/16 06:59 06:59 06:59 Intake Total 4726 4540 Output Total 3379 3325 Balance 1403 1215 Weight 137.4 kg 142.3 kg General appearance: PRESENT: no acute distress Head exam: PRESENT: normocephalic Respiratory exam: PRESENT: unlabored Cardiovascular exam: PRESENT: RRR GI/Abdominal exam: PRESENT: soft Rectal exam: PRESENT: deferred Musculoskeletal exam: PRESENT: other - Left lower extremity picot dressing Results Laboratory Results: 09/16/16 04:49 09/15/16 06:01 09/16/16 04:49 WBC 9.4 RBC 3.54 L Hgb 10.4 L Hct 31.7 L MCV 90 MCH 29.4 MCHC 32.8 RDW 13.4 Plt Count 106 L Impressions: Knee X-Ray 09/14/16 11:18 IMPRESSION: SATISFACTORY POSTOPERATIVE LEFT KNEE. Assessment & Plan - Diagnosis (1) Arthritis of knee, left Is this a current diagnosis for this admission?: YesPlan: Patient ambulated 15 feet with physical therapy yesterday. Improvement is still considerably behind expectations. Will consider the possibility of [facility]ci facility placement. (2) Diabetes Qualifiers: Diabetes mellitus type: type 2 Is this a current diagnosis for this admission?: YesPlan: Glucose vary between 227 -233 yesterday (3) Sleep apnea Is this a current diagnosis for this admission?: YesPlan: Able - Time Time Spent with patient: 15-24 minutes Anticipated discharge: SNF Within: within 24 hours
[2016-09-16] MEDS: TRAMADOL HCL 50 MG TABLET PO PRN ×2 (08:25→15:54)
[2016-09-16] MEDS: LANSOPRAZOLE 30 MG TAB.RAP.DR PO SCH (08:25)
[2016-09-16] MEDS: INSULIN LISPRO 100 UNIT/ML 3 ML VIAL SUBCUT PRN ×3 (08:26→21:34)
[2016-09-16] MEDS: HYDROCHLOROTHIAZIDE 25 MG TABLET PO SCH (09:28)
[2016-09-16] MEDS: METFORMIN HCL 500 MG TABLET PO SCH ×2 (09:28→17:30)
[2016-09-16] MEDS: PRENATAL VITAMIN W-O CA NO5/FE FUMARATE/FA CAPSULE PO SCH (09:28)
[2016-09-16] MEDS: METOPROLOL TARTRATE 25 MG TABLET PO SCH ×2 (09:28→21:33)
[2016-09-16] MEDS: AMLODIPINE BESYLATE 10 MG TABLET PO SCH (09:29)
[2016-09-16] MEDS: FERROUS SULFATE 325 MG TABLET PO SCH (09:29)
[2016-09-16] MEDS: PREGABALIN 75 MG CAPSULE PO SCH ×2 (09:29→17:30)
[2016-09-16] MEDS: ASCORBIC ACID 500 MG TABLET PO SCH (09:29)
[2016-09-16] MEDS: SENNOSIDES/DOCUSATE 8.6-50 MG 1 EACH TABLET PO SCH ×2 (09:29→17:30)
[2016-09-16] MEDS: ALBUTEROL SULFATE 0.042% NEB (1.25 MG/3 ML) AMPUL NEB PRN (14:17)
[2016-09-16] MEDS ORDERED: OXYCODONE-ACETAMINOPHEN 5-325 MG TABLET PO PRN (19:26)
[2016-09-16] MEDS: DIPHENHYDRAMINE HCL 50 MG/ML VIAL IV PRN (20:30)
[2016-09-16] MEDS: FAMOTIDINE 20 MG TABLET PO SCH (21:33)
[2016-09-16] MEDS: RIVAROXABAN 10 MG TABLET PO SCH (21:33)
[2016-09-16] MEDS: ATORVASTATIN CALCIUM 10 MG TABLET PO SCH (21:33)
[2016-09-16] MEDS: AMITRIPTYLINE HCL 25 MG TABLET PO SCH (21:33)
[2016-09-16] MEDS: DOXAZOSIN MESYLATE 2 MG TABLET PO SCH (21:33)
[2016-09-16] MEDS: PREGABALIN 100 MG CAPSULE PO SCH (22:23)
[2016-09-17] MEDS: PREGABALIN 100 MG CAPSULE PO SCH ×2 (05:22→13:21)
[2016-09-17 05:49] LABS: HEMATOCRIT 31.3 % (37.9-51.0); HEMOGLOBIN 10.3 g/dL (13.5-17.0); HGB HCT DIFFERENCE -0.4; MEAN CORPUSCULAR HEMOGLOBIN 29.4 pg (27.0-33.4); MEAN CORPUSCULAR HGB CONC 32.8 g/dL (32.0-36.0); MEAN CORPUSCULAR VOLUME 90 fl (80-97); RED BLOOD COUNT 3.49 10^6/uL (4.35-5.55); RED CELL DISTRIBUTION WIDTH 13.4 % (11.5-14.0); WHITE BLOOD COUNT 8.6 10^3/uL (4.0-10.5)
--- NOTE | 2016-09-17 07:41 | PDOC DISCHARGE SUMMARY ---
General - Admit/Disc Date/PCP Admission Date/Primary Care Provider: 09/14/16 07:44 FRANCES OSUNA MD Discharge Date: 09/17/16 - Discharge Diagnosis (1) Arthritis of knee, left Is this a current diagnosis for this admission?: Yes (2) Diabetes Is this a current diagnosis for this admission?: Yes (3) Sleep apnea Is this a current diagnosis for this admission?: Yes - Additional Information Resuscitation Status: Full Code Discharge Diet: As Tolerated, Regular Discharge Activity: Activity As Tolerated, Balance Activity w/Rest, No Driving, No tub bath Home Medications: Metformin HCl [Glucophage] 1,000 mg PO BID 12/19/14 Omeprazole [Prilosec] 40 mg PO QAM 03/05/15 Ipratropium/Albuterol Sulfate [Combivent Respimat 4 gm Mdi] 2 sprays IN Q4PM PRN 03/15/15 Tiotropium Douds [Spiriva Handihaler 18 mcg/dose (30 Dose)] 18 mcg IN QAM 07/25 Ferrous Sulfate [Feosol 325 mg Tablet] 325 mg PO DAILY #30 tablet 03/31/15 Gabapentin [Neurontin 100 mg Capsule] 100 mg PO Q8 #90 capsule 03/31/15 Metoprolol Tartrate [Lopressor 25 mg Tablet] 25 mg PO Q12 #60 tab 12/12/15 Amitriptyline HCl 75 mg PO QHS 07/20/16 Amlodipine Besylate 10 mg PO QAM 07/20/16 Apixaban [Eliquis 5 mg Tablet] 5 mg PO BID 07/20/16 Ascorbic Acid [Vitamin C] 1 cap.sr PO QAM 07/20/16 Aspirin [Ecotrin 81 mg EC Tablet] 81 mg PO QAM 07/20/16 Hydrochlorothiazide 25 mg PO QAM 07/20/16 Insulin Aspart [Novolog Insulin (Aspart) 100 unit/mL] 20 - 24 unit SQ BID Insulin Glargine,Hum.rec.anlog [Lantus] 50 unit SQ QPM 07/20/16 Pravastatin Sodium 20 mg PO QHS 07/20/16 Ranitidine HCl 150 mg PO QHS 07/20/16 Terazosin HCl 2 mg PO QHS 07/20/16 Tramadol HCl [Ultram 50 mg Tablet] 50 mg PO TID PRN 07/20/16 Oxycodone HCl/Acetaminophen [Percocet 5-325 mg Tablet] 1 - 2 tab PO ASDIR PRN # 15 tablet 09/04/16 Oxycodone HCl/Acetaminophen [Percocet 5-325 mg Tablet] 2 tab PO Q4HP PRN #0 tablet 09/17/16 Pregabalin [Lyrica 100 mg Capsule] 100 mg PO Q8 #0 capsule 09/17/16 History of Present Illness History of Present Illness: SHANAE TSANG is a 60 year old male's of left knee pain and functional disability who is admitted for elective left knee arthroplasty Hospital Course Hospital Course: Through the operating room where he undergoes uncomplicated left knee arthroplasty. Is returned to the floor in satisfactory condition. There are some postoperative issues with analgesia and tongue swelling that had initially been attributed to the use of oxycodone. Narcotics have been stopped and the pain management consult had been obtained. Dr. Cabrales reinitiated the use of oxycodone for pain control. Except that sufficient progress with physical therapy and is ready for discharge home with home health nursing, home health physical therapy, abhijit schreiber, bedside commode. Physical Exam Vital Signs: Temp Pulse Resp BP Pulse Ox 36.8 C 94 23 H 96/49 L 94 09/17/16 00:00 09/17/16 00:00 09/17/16 00:00 09/17/16 00:00 09/17/16 00:00 Intake & Output 09/16/16 09/17/16 09/18/16 06:59 06:59 06:59 Intake Total 4540 1623 Output Total 3325 3385 Balance 1215 -1762 Weight 142.3 kg 138.6 kg General appearance: PRESENT: no acute distress Head exam: PRESENT: normocephalic Respiratory exam: PRESENT: unlabored Cardiovascular exam: PRESENT: RRR Pulses: PRESENT: +1 pedal pulses bilateral Vascular exam: PRESENT: normal capillary refill GI/Abdominal exam: PRESENT: soft Rectal exam: PRESENT: deferred Extremities exam: PRESENT: other - Left knee picot dressing clean dry and intact Neurological exam: PRESENT: alert, awake, oriented to person, oriented to place , oriented to time, oriented to situation, CN II-XII grossly intact. ABSENT: motor sensory deficit Skin exam: PRESENT: dry, intact, warm. ABSENT: cyanosis, rash Results Laboratory Results: 09/17/16 05:16 09/15/16 06:01 09/17/16 05:16 WBC 8.6 RBC 3.49 L Hgb 10.3 L Hct 31.3 L MCV 90 MCH 29.4 MCHC 32.8 RDW 13.4 Plt Count 107 L Impressions: Knee X-Ray 09/14/16 11:18 IMPRESSION: SATISFACTORY POSTOPERATIVE LEFT KNEE. Status: Imported from PACS Plan Discharge Plan: Discharge home with home health nursing, home health physical therapy, wheeled walker, bedside commode. Stop Xarelto today and reinitiate his Eliquis prescription. Visiting nurse service to remove and replace the left knee picot dressing on postop day 7 replaced with an OpSite dressing. Follow-up will be with Dr. Peña in the [facility] for surgery in 2 weeks for staple removal. Time Spent: Less than 30 Minutes
[2016-09-17] MEDS: INSULIN LISPRO 100 UNIT/ML 3 ML VIAL SUBCUT PRN ×2 (08:17→12:15)
[2016-09-17] MEDS: LANSOPRAZOLE 30 MG TAB.RAP.DR PO SCH (08:17)
[2016-09-17] MEDS: AMLODIPINE BESYLATE 10 MG TABLET PO SCH (10:07)
[2016-09-17] MEDS: ASCORBIC ACID 500 MG TABLET PO SCH (10:08)
[2016-09-17] MEDS: SENNOSIDES/DOCUSATE 8.6-50 MG 1 EACH TABLET PO SCH (10:08)
[2016-09-17] MEDS: HYDROCHLOROTHIAZIDE 25 MG TABLET PO SCH (10:08)
[2016-09-17] MEDS: FERROUS SULFATE 325 MG TABLET PO SCH (10:08)
[2016-09-17] MEDS: METOPROLOL TARTRATE 25 MG TABLET PO SCH (10:08)
[2016-09-17] MEDS: METFORMIN HCL 500 MG TABLET PO SCH (10:08)
[2016-09-17] MEDS: PRENATAL VITAMIN W-O CA NO5/FE FUMARATE/FA CAPSULE PO SCH (10:08)
[2016-09-17 12:24] VITALS: BP 121/62
[2016-09-17] MEDS ORDERED: APIXABAN 5 MG TABLET PO SCH (18:00)
== END 2016-09-17 14:50 | disposition home health service (06) | DRG 470 ==
LOC: INOR 09-14 07:44 → 4S 09-14 13:09
PROVIDERS: ADMIT Orthopaedic Surgery; ATTEND Orthopaedic Surgery
PROC: 0SRD0J9 Replacement of Left Knee Joint with Synthetic Substitute, Cemented, Open Approach (ICD-10-PCS; principal; 2016-09-14 10:00)
DX: M17.12 Unilateral primary osteoarthritis, left knee (principal); Z68.41 Body mass index [BMI] 40.0-44.9, adult; I10 Essential (primary) hypertension; K21.9 Gastro-esophageal reflux disease without esophagitis; J44.9 Chronic obstructive pulmonary disease, unspecified; E11.9 Type 2 diabetes mellitus without complications; G47.30 Sleep apnea, unspecified; T40.605A Adverse effect of unspecified narcotics, initial encounter; R22.0 Localized swelling, mass and lump, head; E66.9 Obesity, unspecified; Z88.6 Allergy status to analgesic agent; Z86.718 Personal history of other venous thrombosis and embolism; Z86.711 Personal history of pulmonary embolism; Z86.73 Personal history of transient ischemic attack (TIA), and cerebral infarction without residual deficits; Z79.899 Other long term (current) drug therapy; Z79.4 Long term (current) use of insulin; Z79.84 Long term (current) use of oral hypoglycemic drugs; Z82.49 Family history of ischemic heart disease and other diseases of the circulatory system; Z80.42 Family history of malignant neoplasm of prostate; Z80.0 Family history of malignant neoplasm of digestive organs; Z79.82 Long term (current) use of aspirin; Z79.02 Long term (current) use of antithrombotics/antiplatelets; Z87.891 Personal history of nicotine dependence
CPT/HCPCS: 01402; 36415; 80048; 81001; 82947; 82962; 83036; 84132; 85027; 85610; 85730; 88304; 88311; 94799; C2625; C9290; J0690; J1170; J1200; J1741; J1815; J2250; J2405; J2704; J3010; J3370; J3490; J7050; J7060

== ENCOUNTER 2016-09-04 09:34 | Emergency (ER) | payer OTHER ==
[2016-09-04] MEDS ORDERED: OXYCODONE-ACETAMINOPHEN 5-325 MG TABLET PO ONE (10:24)
--- NOTE | 2016-09-04 10:29 | ER Document Report ---
ED Neck/Back Problem - General Chief Complaint: Leg Pain Stated Complaint: BACK,LEG PAIN Time Seen by Provider: 09/04/16 10:11 Mode of Arrival: Wheelchair Information source: Patient TRAVEL OUTSIDE OF THE [place] IN LAST 30 DAYS: No - HPI Patient complains to provider of: Pain, Lower back Onset: Chronic Timing: Constant Quality of pain: Achy Severity: Moderate Pain Level: 4 Recent injury: No Associated symptoms: Numbness/tingling Exacerbated by: Nothing Relieved by: Nothing Similar symptoms previously: Yes Recently seen / treated by doctor: Yes Notes: Patient is a 60-year-old male who presents to the emergency room complaining of chronic low back pain with exacerbation over the past few days, he reports pain to his left knee as well and is scheduled to have a knee replacement surgery on September 14, he has been seen for his back pain in the past and reports that he has herniated disks in L4, L5, S1 but he has had a spinal stimulator in the past, and is currently on gabapentin but he reports that his symptoms are not being controlled with this medication, he reports the numbness and tingling sensation down the legs as well which is been present for many years, he denies any new injuries, no bowel or bladder dysfunction, no saddle anesthesia - Related Data Allergies/Adverse Reactions: codeine [Codeine] Allergy (Severe, Verified 09/04/16 09:44) Facial swelling hydrocodone bitartrate [From Vicodin] Allergy (Severe, Verified 09/04/16 09:44) Anaphylaxis morphine Adverse Reaction (Verified 09/04/16 09:44) Itching Past Medical History - General Information source: Patient - Social History Smoking Status: Unknown if Ever Smoked Family History: Arthritis, CAD - Mother and brother, CVA, DM, Hyperlipidemia, Hypertension, Malignancy Patient has suicidal ideation: No Patient has homicidal ideation: No - Past Medical History Cardiac Medical History: Reports: Hx Atrial Fibrillation, Hx Congestive Heart Failure, Hx Hypercholesterolemia, Hx Hypertension, Hx Pulmonary Embolism Denies: Hx Coronary Artery Disease, Hx Heart Attack, Hx Peripheral Vascular Disease, Hx Heart Murmur Pulmonary Medical History: Reports: Hx Asthma, Hx COPD, Hx Pneumonia - 7 years ago, Hx Sleep Apnea - hx only, not a current problem, no CPAP, Hx Tuberculosis Denies: Hx Bronchitis, Hx Respiratory Failure Neurological Medical History: Reports: Hx Cerebrovascular Accident Endocrine Medical History: Reports: Hx Diabetes Mellitus Type 2. Denies: Hx Graves' Disease, Hx Hyperthyroidism, Hx Hypothyroidism Renal/ Medical History: Reports: Hx Kidney Stones - 1981. Denies: Hx Benign Prostatic Hyperplasia, Hx End Stage Renal Disease, Hx Peritoneal Dialysis Malignancy Medical History: Denies Hx Lung Cancer GI Medical History: Reports: Hx Gastroesophageal Reflux Disease, Hx Hepatitis - Hep C, Hx Ulcer. Denies: Hx Crohn's Disease, Hx Hiatal Hernia, Hx Irritable Bowel, Hx Liver Failure Musculoskeltal Medical History: Reports Hx Arthritis, Denies Hx Fibromyalgia, Denies Hx Multiple Sclerosis, Denies Hx Muscular Dystrophy, Reports Hx Musculoskeletal Deformity, Reports Hx Musculoskeletal Trauma Psychiatric Medical History: Denies: Hx Bipolar Disorder, Hx Dementia, Hx Depression, Hx Post Traumatic Stress Disorder, Hx Schizophrenia Traumatic Medical History: Reports: Hx Fractures, Hx Spine Fracture Infectious Medical History: Reports: Hx Hepatitis - Hep C Past Surgical History: Reports: Hx Abdominal Surgery - Hernia repair, bowel resection, Hx Appendectomy, Hx Bowel Surgery - bowel resection 1988, Hx Herniorrhaphy, Hx Oral Surgery, Hx Orthopedic Surgery - Spinal fusion. Meniscus repair.. Denies: Hx Cholecystectomy, Hx Colostomy, Hx Coronary Artery Bypass Graft, Hx Gastric Bypass Surgery, Hx Pacemaker, Hx Tonsillectomy - Immunizations Immunizations up to date: Yes Hx Diphtheria, Pertussis, Tetanus Vaccination: Yes Hx Pneumococcal Vaccination: 04/12/13 Review of Systems - Review of Systems Constitutional: No symptoms reported EENT: No symptoms reported Cardiovascular: No symptoms reported Respiratory: No symptoms reported Gastrointestinal: No symptoms reported Genitourinary: No symptoms reported Male Genitourinary: No symptoms reported Musculoskeletal: See HPI Skin: No symptoms reported Hematologic/Lymphatic: No symptoms reported Neurological/Psychological: No symptoms reported -: Yes All other systems reviewed and negative Physical Exam - Vital signs Vitals: Temp Pulse Resp BP Pulse Ox 98 F 94 20 120/84 93 09/04/16 09:44 09/04/16 09:44 09/04/16 09:44 09/04/16 09:44 09/04/16 09:44 Interpretation: Normal - General General appearance: Appears well, Alert - HEENT Head: Normocephalic, Atraumatic Eyes: Normal Pupils: PERRL - Respiratory Respiratory status: No respiratory distress Chest status: Nontender Breath sounds: Normal Chest palpation: Normal - Cardiovascular Rhythm: Regular Heart sounds: Normal auscultation Murmur: No - Abdominal Inspection: Normal Distension: No distension Bowel sounds: Normal Tenderness: Nontender Organomegaly: No organomegaly - Back Back: Tender - Palpate in the paraspinal musculature of the lumbar spine - Extremities General upper extremity: Normal inspection, Nontender, Normal color, Normal ROM , Normal temperature General lower extremity: Normal inspection, Normal color, Normal ROM - Painful, distal sensation and motor is intact with 2+ DP pulses bilaterally, Normal temperature. No: Bereket's sign - Neurological Neuro grossly intact: Yes Cognition: Normal Orientation: AAOx4 Ju[place] Coma Scale Eye Opening: Spontaneous [place] Coma Scale Verbal: Oriented [place] Coma Scale Motor: Obeys Commands Juancarlos Coma Scale Total: 15 Speech: Normal Motor strength normal: LUE, RUE, LLE, RLE Sensory: Normal - Psychological Associated symptoms: Normal affect, Normal mood - Skin Skin Temperature: Warm Skin Moisture: Dry Skin Color: Normal Course - Re-evaluation Re-evalutation: 09/04/16 10:27 Patient with chronic low back pain, gabapentin is not helping his pain, he also has left knee pain which is chronic in nature and he is scheduled to have surgery on the fifth, patient was strongly advised to follow-up with his primary care provider as well as pain management for pain control, he will be provided with a very small amount of pain medication today until he is able to follow-up, patient advised to return if symptoms worsen, patient acknowledges understanding and agreement with - Vital Signs Vital signs: Temp Pulse Resp BP Pulse Ox 98 F 94 20 120/84 93 09/04/16 09:44 09/04/16 09:44 09/04/16 09:44 09/04/16 09:44 09/04/16 09:44 Discharge - Discharge Clinical Impression: Back pain Qualifiers: Back pain location: low back pain Chronicity: chronic Back pain laterality: bilateral Sciatica presence: without sciatica Qualified Code(s): M54.5 - Low back pain; G89.29 - Other chronic pain Left knee pain Qualifiers: Chronicity: chronic Qualified Code(s): M25.562 - Pain in left knee; G89.29 - Other chronic pain Condition: Stable Disposition: HOME, SELF-CARE Instructions: Chronic Back Pain ([facility]), Low Back Pain ([facility]) Additional Instructions: Follow up with your primary care provider in one to 2 days. Return to the emergency room immediately if symptoms worsen or any additional concerns. Prescriptions: Oxycodone HCl/Acetaminophen [Percocet 5-325 mg Tablet] 1 - 2 tab PO ASDIR PRN # 15 tablet PRN Reason:
[2016-09-04 10:58] VITALS: BP 130/88
== END 2016-09-04 10:58 | disposition home or self-care (01) ==
LOC: ER 09:34
DX: M54.5 Low back pain (principal); M25.562 Pain in left knee; G89.29 Other chronic pain
CPT/HCPCS: 99283

== ENCOUNTER 2016-09-21 05:23 | Inpatient (IN) | payer OTHER ==
[2016-09-21] MEDS ORDERED: EPINEPHRINE INJ/PF 1 MG/1 ML AMPULE ONE ×2 (05:36→05:51)
[2016-09-21] MEDS ORDERED: METHYLPREDNISOLONE INJ 125 MG/2 ML SDV ONE (05:45)
[2016-09-21] MEDS ORDERED: DIPHENHYDRAMINE HCL 50 MG/ML VIAL ONE (05:46)
[2016-09-21] MEDS ORDERED: ETOMIDATE INJ/PF 20 MG/10 ML SDV IV ONE (05:59)
[2016-09-21] MEDS ORDERED: RACEPINEPHRINE HCL 2.25% NEB 0.5 ML AMPUL NEB ONE ×2 (05:59→07:02)
[2016-09-21] MEDS ORDERED: PROPOFOL 0 ML IV ONE (06:00)
[2016-09-21] MEDS ORDERED: KETAMINE HCL INJ 500 MG/10 ML VIAL ONE (06:00)
[2016-09-21] MEDS ORDERED: MIDAZOLAM HCL 100 ML IV ONE (06:09)
[2016-09-21] MEDS ORDERED: MIDAZOLAM 2 MG/2 ML INJ IV ONE (06:11)
--- NOTE | 2016-09-21 06:13 | ER Document Report ---
ED General - General Chief Complaint: Allergic Reaction Stated Complaint: POSSIBLE ALLERGIC REACTION Time Seen by Provider: 09/21/16 06:10 Notes: Patient is a 60-year-old male who presents with complaint of swelling and tongue swelling and some difficulty breathing. Says started tonight. He is unsure exactly what triggered it. He is on some pain medication due to recent knee surgery that occurred 1 week ago. Says he has been taking this pain medication since the surgery and has not had any difficulties with it. No other new medications. Denies any recent fevers or infections. He denies taking any SHAMA inhibitor type medications. Complaints over the last several days his left leg has become red and swollen and warm. He fears that he may have an infection from his recent knee replacement surgery. No replacement was performed by Dr. Peña last Wednesday. TRAVEL OUTSIDE OF THE [place] IN LAST 30 DAYS: No - Related Data Allergies/Adverse Reactions: codeine [Codeine] Allergy (Severe, Verified 09/14/16 08:23) Facial swelling hydrocodone bitartrate [From Vicodin] Allergy (Severe, Verified 09/14/16 08:23) Anaphylaxis hydromorphone [From Dilaudid] Adverse Reaction (Verified 09/15/16 06:34) Difficulty breathing morphine Adverse Reaction (Verified 09/14/16 08:23) Itching oxycodone Adverse Reaction (Verified 09/15/16 06:34) Swelling of tongue Past Medical History - Social History Smoking Status: Former Smoker Frequency of alcohol use: None Drug Abuse: None Family History: Arthritis, CAD - Mother and brother, CVA, DM, Hyperlipidemia, Hypertension, Malignancy Patient has suicidal ideation: No Patient has homicidal ideation: No - Past Medical History Cardiac Medical History: Reports: Hx Atrial Fibrillation, Hx Congestive Heart Failure, Hx Hypercholesterolemia, Hx Hypertension, Hx Pulmonary Embolism Denies: Hx Coronary Artery Disease, Hx Heart Attack, Hx Peripheral Vascular Disease, Hx Heart Murmur Pulmonary Medical History: Reports: Hx Asthma, Hx COPD, Hx Pneumonia - 7 years ago, Hx Sleep Apnea - hx only, not a current problem, no CPAP, Hx Tuberculosis Denies: Hx Bronchitis, Hx Respiratory Failure Neurological Medical History: Reports: Hx Cerebrovascular Accident Endocrine Medical History: Reports: Hx Diabetes Mellitus Type 2. Denies: Hx Graves' Disease, Hx Hyperthyroidism, Hx Hypothyroidism Renal/ Medical History: Reports: Hx Kidney Stones - 1981. Denies: Hx Benign Prostatic Hyperplasia, Hx End Stage Renal Disease, Hx Peritoneal Dialysis Malignancy Medical History: Denies Hx Lung Cancer GI Medical History: Reports: Hx Gastroesophageal Reflux Disease, Hx Hepatitis - Hep C, Hx Ulcer. Denies: Hx Crohn's Disease, Hx Hiatal Hernia, Hx Irritable Bowel, Hx Liver Failure Musculoskeltal Medical History: Reports Hx Arthritis, Denies Hx Fibromyalgia, Denies Hx Multiple Sclerosis, Denies Hx Muscular Dystrophy, Reports Hx Musculoskeletal Deformity, Reports Hx Musculoskeletal Trauma Psychiatric Medical History: Denies: Hx Bipolar Disorder, Hx Dementia, Hx Depression, Hx Post Traumatic Stress Disorder, Hx Schizophrenia Traumatic Medical History: Reports: Hx Fractures, Hx Spine Fracture Infectious Medical History: Reports: Hx Hepatitis - Hep C Past Surgical History: Reports: Hx Abdominal Surgery - Hernia repair, bowel resection, Hx Appendectomy, Hx Bowel Surgery - bowel resection 1988, Hx Herniorrhaphy, Hx Oral Surgery, Hx Orthopedic Surgery - Spinal fusion. Meniscus repair.. Denies: Hx Cholecystectomy, Hx Colostomy, Hx Coronary Artery Bypass Graft, Hx Gastric Bypass Surgery, Hx Pacemaker, Hx Tonsillectomy - Immunizations Immunizations up to date: Yes Hx Diphtheria, Pertussis, Tetanus Vaccination: Yes Hx Pneumococcal Vaccination: 04/12/13 Review of Systems - Review of Systems Notes: My Normal Review Basic REVIEW OF SYSTEMS: CONSTITUTIONAL : Denies fever, chills, or sweats. Denies recent illness. EENT: Throat Swelling. CARDIOVASCULAR: Denies chest pain. RESPIRATORY: Denies cough, cold, or chest congestion. Denies shortness of breath, difficulty breathing, or wheezing. GASTROINTESTINAL: Denies abdominal pain. Denies nausea, vomiting, or diarrhea. Denies constipation. Last BM: MUSCULOSKELETAL: left knee Pain. SKIN: Warmth to the skin along the left leg. NEUROLOGICAL: Denies altered mental status or loss of consciousness. Denies headache. Denies weakness or paralysis or loss of use of either side. Denies problems with gait or speech. Denies sensory or motor loss. PSYCHIATRIC: Denies anxiety or stress or depression. ALL OTHER SYSTEMS REVIEWED AND NEGATIVE. Physical Exam - Vital signs Vitals: Temp Pulse Resp BP Pulse Ox 98.4 F 135 H 22 H 140/94 H 92 09/21/16 05:23 09/21/16 05:23 09/21/16 05:23 09/21/16 05:23 09/21/16 05:23 - Notes Notes: General Appearance: Well nourished, alert, cooperative, mild to moderate acute distress, no obvious discomfort. No current stridor. Vitals: reviewed, See vital signs table. Head: swelling on the face and around the eyes. No swelling or tenderness to the head Eyes: PERRL, EOMI, Conjuctiva clear Mouth: No decreasd moisture. Swelling of the tongue. Throat: Some posterior pharyngeal swelling. Neck: Supple, no neck tenderness, No thyromegaly Lungs: No wheezing, No rales, No rhonci, No accessory muscle use, good air exchange bilaterally. Heart: Cardiac rate, Regular rythm, No murmur, no rub Abdomen: Normal BS, soft, No rigidity, No abdominal tenderness, No guarding, no rebound, no abdominal masses, no organomegaly Extremities: strength 5/5 in all extremities, good pulses in all extremities, bandage over left knee. swelling, redness, and warmth to the left knee. redness and warmth extends from just above left ankle to mid way up left thigh., 2+ left lower extremity edema. Skin: warm, dry, appropriate color, no rash Neuro: speech clear, oriented x 3, normal affect, responds appropriately to questions. Course - Re-evaluation Re-evalutation: 09/21/16 06:11 Came in some distress from swelling. He received 3 rounds of 0.3 mg of epinephrine IM. Initially thought he was getting better but then started to decompensate further. He started to lose his voice. I elected to intubate. Initially attempted to call the anesthesiologist for help with fiberoptic intubation. Anesthesia was tied up with 2 C-sections in the OR and the third anesthesiologist was 30 minutes away and I therefore elected to do it on my own. Patient is awake work. I gave the patient 150 mg of ketamine. I used a glide scope and was able to partially visualize cords. I then give the patient 20 mg of etomidate and 50 mg of succinylcholine. I was able to intubate the patient on the first attempt with the glide scope. Patient tolerated procedure well. 09/21/16 07:07 Patient patient is sedated and that his eyes are closed and he has not tried to talk or move however he is biking and for that. Discontinued and patient would drop his O2 saturations because of it. I therefore gave him rocuronium. Since receiving the rocuronium he is remained calm and is breathing well with better and his O2 saturations are staying with 100%. - Vital Signs Vital signs: Temp Pulse Resp BP Pulse Ox 98.4 F 135 H 22 H 140/94 H 99 09/21/16 05:23 09/21/16 05:23 09/21/16 05:23 09/21/16 05:23 09/21/16 06:56 - Laboratory Result Diagrams: 09/21/16 07:07 09/21/16 07:08 Laboratory results interpreted by me: 09/21/16 09/21/16 07:07 07:08 WBC 12.1 H RBC 3.38 L Hgb 9.9 L Hct 30.7 L Absolute Neutrophils 9.4 H Sodium 136.5 L Glucose 264 H Calcium 8.1 L Total Protein 6.2 L Albumin 3.2 L - Transfer of Care Notes: 09/21/16 07:57 Patient was intubated due to his continued progression concern for airway compromise. I did stop the vancomycin because of the large amount of redness and swelling to the left lower extremity that appears consistent with a postop infection. He is undergoing a venous duplex ultrasound. I have spoken with the hospitalist who agrees to admit the patient. The exact cause of the allergic reaction and angioedema is not clear at this time. Not on an SHAMA inhibitor. Dictation of this chart was performed using voice recognition software; therefore, there may be some unintended grammatical errors. Procedures - Intubation Orotracheal Airway evaluation: Other - oropharyngeal swelling Mallampati Classification: Class 4 Medications: Etomidate, Ketamine Intubation method: Orotracheal Blade type: Dylan Blade size: 4 Equipment used: Glidescope ETT size: 7.5 ETT secured at: Lips Breath Sounds after Intubation: Equal End tidal CO2 confirmed: Yes Post Intubation Xray: Yes Intubation Complications: No complications - Additional Procedures peripheral IV Additional Procedures: IV insertion Notes: 09/21/16 07:48 Post a peripheral IV 20-gauge Angiocath small to the right antecubital space of the right upper extremity. This was done under ultrasound guidance and first attempt. There was sterilized prior to attempt. Good dark blood flow. IV flushes easily. IV insertion Additional Procedures: IV insertion Notes: 09/21/16 07:49 A second peripheral IV was placed in the left upper extremity to the left antecubital space. This was placed using a 20-gauge Angiocath. Area was sterilized prior to venipuncture. The blood aspirated through the IV. The IV flushed easily. There is no swelling. Patient tolerated procedure well. Procedure was done under ultrasound guidance. Critical Care Note - Critical Care Note Total time excluding time spent on procedures (mins): 75 Comments: Critical care time spent with this patient not including time spent on procedures was approximately 75 minutes due to continued management of severe allergic reaction with angioedema, management of sedation and management of airway. Discharge - Discharge Clinical Impression: Anaphylaxis Qualifiers: Encounter type: initial encounter Qualified Code(s): T78.2XXA - Anaphylactic shock, unspecified, initial encounter Post op infection Qualifiers: Encounter type: initial encounter Qualified Code(s): T81.4XXA - Infection following a procedure, initial encounter Condition: Stable Disposition: ADMITTED INPATIENT Admitting Provider: Hospitalist Unit Admitted: [facility]
[2016-09-21] MEDS ORDERED: PROPOFOL 100 ML IV ONE (06:20)
[2016-09-21] MEDS ORDERED: PROPOFOL INJ 200 MG/20 ML VIAL IV ONE (06:59)
[2016-09-21] MEDS ORDERED: ROCURONIUM BROMIDE INJ 50 MG/5 ML VIAL IV ONE (06:59)
[2016-09-21] MEDS ORDERED: EPINEPHRINE INJ/PF 1 MG/1 ML AMPULE IM ONE ×3 (07:00)
[2016-09-21] MEDS ORDERED: METHYLPREDNISOLONE INJ 125 MG/2 ML SDV IV ONE (07:01)
[2016-09-21] MEDS ORDERED: DIPHENHYDRAMINE HCL 50 MG/ML VIAL IV ONE (07:01)
[2016-09-21] MEDS ORDERED: KETAMINE HCL INJ 500 MG/10 ML VIAL IV ONE (07:01)
[2016-09-21] MEDS ORDERED: VANCOMYCIN HCL INJ 1000 MG VIAL IV ONE (07:02)
[2016-09-21 07:18] LABS: ABSOLUTE EOSINOPHILS # (AUTO) 0.1 10^3/uL (0.0-0.6); ABSOLUTE LYMPHOCYTES (AUTO) 1.6 10^3/uL (0.5-4.7); ABSOLUTE NEUT (AUTO) 9.4 10^3/uL (1.7-8.2); BASOPHILS % (AUTO) 0.4 % (0-2); HEMATOCRIT 30.7 % (37.9-51.0); HEMOGLOBIN 9.9 g/dL (13.5-17.0); LYMPHOCYTES % (AUTO) 13.3 % (13-45); MEAN CORPUSCULAR HEMOGLOBIN 29.1 pg (27.0-33.4); MEAN CORPUSCULAR HGB CONC 32.1 g/dL (32.0-36.0); MEAN CORPUSCULAR VOLUME 91 fl (80-97); MONOCYTES % (AUTO) 7.9 % (3-13); RED BLOOD COUNT 3.38 10^6/uL (4.35-5.55); RED CELL DISTRIBUTION WIDTH 13.7 % (11.5-14.0); SEGMENTED NEUTROPHILS % (AUTO) 77.4 % (42-78); WHITE BLOOD COUNT 12.1 10^3/uL (4.0-10.5)
--- NOTE | 2016-09-21 07:19 | RADIOLOGY REPORT (SQ) ---
EXAM DESCRIPTION: CHEST SINGLE VIEW COMPLETED DATE/TIME: 09/21/2016 6:59 am REASON FOR STUDY: post intubation COMPARISON: 07/17/2016. EXAM PARAMETERS: NUMBER OF VIEWS: One view. TECHNIQUE: Single frontal radiographic view of the chest acquired. RADIATION DOSE: NA LIMITATIONS: None. FINDINGS: LUNGS AND PLEURA: Moderate opacity-effusion of the left lower hemithorax, 40%. Small righ t basilar opacity -layered effusion. MEDIASTINUM AND HILAR STRUCTURES: No masses. Contour normal. HEART AND VASCULAR STRUCTURES: Mild enlargement of the cardiac silhouette. BONES: No acute findings. HARDWARE: Adequate appearing endotracheal tube. Nasogastric tube courses inferiorly off the image ov er the left upper abdominal quadrant. OTHER: No other significant finding. IMPRESSION: Small-moderate bilateral lower lobar opacity -effusion, left more than right. Lines and tubes. TECHNICAL DOCUMENTATION: JOB ID: [id number]
[2016-09-21 07:46] LABS: ALANINE AMINOTRANSFERASE 33 U/L (21-72); ALBUMIN 3.2 g/dL (3.5-5.0); ALKALINE PHOSPHATASE 65 U/L (38-126); ANION GAP 10 (5-19); ASPARTATE AMINO TRANSFERASE 20 U/L (17-59); BILIRUBIN,DIRECT 0.4 mg/dL (0.0-0.4); BILIRUBIN,TOTAL 0.9 mg/dL (0.2-1.3); BLOOD UREA NITROGEN 12 mg/dL (7-20); CALCIUM 8.1 mg/dL (8.4-10.2); CARBON DIOXIDE 26 mmol/L (22-30); CHLORIDE 101 mmol/L (98-107); CREATININE RESULT 0.58 mg/dL (0.52-1.25); GLUCOSE 264 mg/dL (75-110); POTASSIUM 4.3 mmol/L (3.6-5.0); SODIUM 136.5 mmol/L (137-145); TOTAL PROTEIN 6.2 g/dL (6.3-8.2)
[2016-09-21] MEDS ORDERED: ACETAMINOPHEN 650 MG SUPP.RECT PR PRN (07:59)
[2016-09-21] MEDS ORDERED: PHARMACY COMMUNICATION ORDER MC NR ×2 (08:00→10:00)
[2016-09-21] MEDS: IPRATROPIUM/ALBUTEROL 0.5-2.5 MG/3 ML AMPUL NEB SCH ×4 (08:00→20:23)
[2016-09-21] MEDS ORDERED: DEXTROSE 40% GEL 15 GM TUBE PO PRN ×2 (08:07)
[2016-09-21] MEDS ORDERED: DEXTROSE 50%-WATER 25 GM/50 ML DISP.SYRIN IV PRN ×2 (08:07)
[2016-09-21] MEDS ORDERED: GLUCAGON,HUMAN RECOMB 1 MG INJ IM PRN (08:07)
[2016-09-21] MEDS ORDERED: METHYLPREDNISOLONE INJ 125 MG/2 ML SDV IV SCH (08:15)
[2016-09-21] MEDS ORDERED: DIPHENHYDRAMINE HCL 50 MG/ML VIAL IV SCH (08:15)
[2016-09-21] MEDS ORDERED: VANCOMYCIN HCL 0 MG in DEXTROSE 5%-WATER 250 ML IV NR (08:15)
[2016-09-21] MEDS ORDERED: ENOXAPARIN SODIUM INJ 40 MG/0.4 ML DISP.SYRIN SUBCUT ONE ×2 (09:00→12:30)
[2016-09-21] MEDS: PROPOFOL 100 ML IV PRN ×5 (09:36→21:27)
[2016-09-21] MEDS ORDERED: VANCOMYCIN HCL 2,000 MG in DEXTROSE 5%-WATER 500 ML IV SCH (10:00)
[2016-09-21 10:10] LABS: ARTERIAL BLOOD BASE EXCESS 2.5 mmol/L; ARTERIAL BLOOD O2 SATURATION 94.3 % (94-98)
--- NOTE | 2016-09-21 10:21 | PDOC PROGRESS REPORT ---
Subjective Progress Note for:: 09/21/16 Subjective:: Unable to complete the review of systems secondary to intubated and sedated status. Physical Exam Vital Signs: Temp Pulse Resp BP Pulse Ox 98.1 F 135 H 18 126/84 H 98 09/21/16 07:11 09/21/16 05:23 09/21/16 09:01 09/21/16 09:01 09/21/16 09:45 Exam: GENERAL: intubated, sedated HEENT: Slight tongue swelling noted, conjunctiva clear, nonicteric, moist mucous membranes, no JVD, midline trachea RESPIRATORY: Left lower lung diminished CARDIAC: Regular rate and rhythm, no murmurs/gallops/rubs ABDOMEN: Protuberant, soft, nondistended, active bowel sounds, no rigidity EXTREMETIES: No cyanosis, clubbing, edema NEUROLOGIC: Unable to assess secondary to intubation SKIN: No rashes or lesions Results Impressions: Chest X-Ray 09/21/16 06:10 IMPRESSION: Small-moderate bilateral lower lobar opacity -effusion, left more than right. Lines and tubes. 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 Patient has received epinephrine, Benadryl, and Solu-Medrol and Pepcid. Continue solu-Medrol and Pepcid and Benadryl. (2) Left lower lobe pneumonia Qualifiers: Aspiration pneumonia type: unspecified Qualified Code(s): J69.0 - Pneumonitis due to inhalation of food and vomit Is this a current diagnosis for this admission?: YesPlan: Questionable aspiration pneumonia. Suspect this may be atelectasis. Patient has no left shift. Send sputum and consider CTA tomorrow as this is the same place as pneumonia in 2015. Appreciate pulmonary imput (3) Post op infection Qualifiers: Encounter type: initial encounter Qualified Code(s): T81.4XXA - Infection following a procedure, initial encounter (4) Acute respiratory failure Qualifiers: Respiratory failure complication: hypoxia and hypercapnia Qualified Code(s): J96.01 - Acute respiratory failure with hypoxia (6) Diabetes Qualifiers: Diabetes mellitus type: type 2 Diabetes mellitus complication status: with diabetic arthropathy Diabetes mellitus complication detail: with other arthropathy Diabetes mellitus [facility] insulin use: with [facility] use Qualified Code(s): E11.618 - Type 2 diabetes mellitus with other diabetic arthropathy; 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 Lantus 25 units subcu twice daily. Anticipate a high need for insulin due to patient's need for corticosteroids. (7) Gastroesophageal reflux disease Qualifiers: Esophagitis presence: esophagitis presence not specified Qualified Code (s): K21.9 - Gastro-esophageal reflux disease without esophagitis Is this a current diagnosis for this admission?: YesPlan: PPI (8) Peptic ulcer disease Is this a current diagnosis for this admission?: YesPlan: PPI (9) Pulmonary embolism Qualifiers: Chronicity: unspecified Acute cor pulmonale presence: without acute cor pulmonale Is this a current diagnosis for this admission?: YesPlan: History of pulmonary embolus and is currently on Eliquis. This will be resumed (10) Hepatitis C Qualifiers: Viral hepatitis chronicity: chronic Hepatic coma status: without hepatic coma Qualified Code(s): B18.2 - Chronic viral hepatitis C Is this a current diagnosis for this admission?: Yes (11) Hypertension Qualifiers: Hypertension type: essential hypertension Qualified Code(s): I10 - Essential (primary) hypertension Is this a current diagnosis for this admission?: YesPlan: Will re-add medications as blood pressure permits. Patient should refrain from being on an SHAMA secondary to possible source of current reaction. (12) COPD (chronic obstructive pulmonary disease) Qualifiers: COPD type: unspecified COPD Qualified Code(s): J44.9 - Chronic obstructive pulmonary disease, unspecified Is this a current diagnosis for this admission?: YesPlan: nebulized treatments and we will consider corticosteroid if indicated. (13) Obesity (BMI 30-39.9) Qualifiers: Obesity type: due to excess calories Obesity severity: morbid Qualified Code(s): E66.01 - Morbid (severe) obesity due to excess calories Is this a current diagnosis for this admission?: Yes (14) pseudohyponatremia Is this a current diagnosis for this admission?: YesPlan: Secondary to elevated glucose
[2016-09-21 10:30] LABS: AMORPHOUS SEDIMENT,URINE TRACE /HPF; APPEARANCE,URINE TURBID; BILIRUBIN,URINE NEGATIVE (NEGATIVE); GLUCOSE, URINE >=500 mg/dL (NEGATIVE); KETONES,URINE TRACE mg/dL (NEGATIVE); LEUKOCYTE ESTERASE,URINE NEGATIVE (NEGATIVE); NITRITE,URINE NEGATIVE (NEGATIVE); PROTEIN,URINE NEGATIVE (NEGATIVE); URINE SPECIFIC GRAVITY 1.017; UROBILINOGEN,URINE NEGATIVE mg/dL (<2.0)
--- NOTE | 2016-09-21 10:41 | RADIOLOGY REPORT (SQ) ---
EXAM DESCRIPTION: KUB/ABDOMEN (SINGLE VIEW) COMPLETED DATE/TIME: 09/21/2016 10:28 am REASON FOR STUDY: Check Placement of NG Tube COMPARISON: None. NUMBER OF VIEWS: One view. TECHNIQUE: Supine radiographic image of the abdomen acquired. LIMITATIONS: None. FINDINGS: BOWEL GAS PATTERN: Normal bowel gas pattern. No dilated loops. CALCIFICATIONS: No suspicious calcifications. SOFT TISSUES: No gross mass or suggestion of organomegaly. HARDWARE: The tip of the NG tube is in the region of the body of the stomach. BONES: No acute fracture. No worrisome bone lesions. OTHER: A couple of air bronchograms are seen in the left lung base. IMPRESSION: 1. NG tube placement as described. 2. Possible left lower lobe pneumonia versus atelectasis. TECHNICAL DOCUMENTATION: JOB ID: [id number] [employer]- All Rights Reserved
[2016-09-21 11:37] LABS: FOLATE > 20.00 ng/mL (>2.76)
--- NOTE | 2016-09-21 12:23 | PDOC H&P ---
History of Present Illness Admission Date/PCP: 09/21/16 08:11 Patient complains of: Difficulty breathing and tongue swelling History of Present Illness: SHANAE TSANG is a 60 year old male with past medical history of COPD, essential hypertension, diabetes mellitus type 2 on insulin, GERD, vocal cord polyp, angioedema secondary to Vicodin in 2014, and recent left knee arthroplasty on 09/14/2016. Patient presented to [facility] emergency room this morning with complaint of increasing shortness of breath, wheezing and tongue swelling. He was noted to have progressive angioedema of his tongue and lips with progressive stridor that despite IM epinephrine 3, IV Solu-Medrol and Benadryl required intubation for airway protection. History is obtained from the patient's Babs, the emergency room physician and electronic health record. According to the patient's he had some angioedema on postop day 1, 09/15/2016, which was thought to be secondary to either anesthesia or oxycodone. Oxycodone was stopped and the angioedema resolved. Pain management service was consulted by orthopedic surgery, patient was placed on Percocet and discharged home. Patient's states he also recently began taking Lyrica for neuropathy and also takes lisinopril for his essential hypertension. Patient's also notes his left knee became increasingly swollen and warm to the touch on Wednesday. Patient underwent left total knee arthroplasty by Dr. Marc Peña on 09/14/2016. Patient is referred to the hospitalist service for treatment of his acute anaphylaxis in acute respiratory failure. Past Medical History Cardiac Medical History: Reports: Atrial Fibrillation, Congestive Heart Failure , Hyperlipidema, Hypertension, Pulmonary Embolism Denies: Coronary Artery Disease, Myocardial Infarction, Peripheral Vascular Disease, Heart Murmur Pulmonary Medical History: Reports: Asthma, Chronic Obstructive Pulmonary Disease (COPD), Pneumonia - 7 years ago, Sleep Apnea - hx only, not a current problem, no CPAP, Tuberculosis Denies: Bronchitis, Respiratory Failure EENT Medical History: Reports: None Neurological Medical History: Reports: None Endocrine Medical History: Reports: Diabetes Mellitus Type 2 Denies: Hyperthyroidism, Hypothyroidism Renal/ Medical History: Reports: None Denies: End Stage Renal Disease Malignancy Medical History: Reports: None Denies: Lung Cancer GI Medical History: Reports: Gastroesophageal Reflux Disease, Hepatitis - Hep C Denies: Crohn's Disease, Hiatal Hernia Musculoskeltal Medical History: Reports: Arthritis Denies: Fibromyalgia Psychiatric Medical History: Denies: Bipolar Disorder, Dementia, Depression, Post Traumatic Stress Disorder Traumatic Medical History: Reports: None Infectious Medical History: Reports: None Past Surgical History Past Surgical History: Reports: Appendectomy, Herniorrhaphy, Orthopedic Surgery - Spinal fusion. Meniscus repair. Left knee arthroplasty on 09/14/2016 Denies: Cholecystectomy, Colostomy, Coronary Artery Bypass Graft, Gastric Bypass Surgery, Pacemaker, Tonsillectomy Social History Information Source: Relative, Emergency Med Personnel Lives with: Spouse/Significant other Smoking Status: Former Smoker Number of Years Smokin Frequency of Alcohol Use: None Hx Recreational Drug Use: No Hx Prescription Drug Abuse: No - Advance Directive Resuscitation Status: Full Code Surrogate healthcare decision maker:: , Babs Uriarte departed reported the day for 30 Family History Family History: Arthritis, CAD - Mother and brother, CVA, DM, Hyperlipidemia, Hypertension, Malignancy Parental Family History Reviewed: Yes Children Family History Reviewed: Yes Sibling(s) Family History Reviewed.: Yes Medication/Allergy Allergies/Adverse Reactions: codeine [Codeine] Allergy (Severe, Verified 09/14/16 08:23) Facial swelling hydrocodone bitartrate [From Vicodin] Allergy (Severe, Verified 09/14/16 08:23) Anaphylaxis hydromorphone [From Dilaudid] Adverse Reaction (Verified 09/15/16 06:34) Difficulty breathing morphine Adverse Reaction (Verified 09/14/16 08:23) Itching oxycodone Adverse Reaction (Verified 09/15/16 06:34) Swelling of tongue Review of Systems ROS unobtainable: Due to endotracheal tube Physical Exam Vital Signs: Temp Pulse Resp BP Pulse Ox 98.1 F 135 H 18 126/84 H 96 09/21/16 07:11 09/21/16 05:23 09/21/16 09:01 09/21/16 09:01 09/21/16 09:01 General appearance: PRESENT: no acute distress, obese, well-developed, well- nourished, other - angioedema of tongue Head exam: PRESENT: atraumatic, normocephalic Eye exam: PRESENT: conjunctiva pink, EOMI, PERRLA. ABSENT: scleral icterus Ear exam: PRESENT: normal external ear exam Mouth exam: PRESENT: tongue midline, other - angioedema of tongue Neck exam: ABSENT: carotid bruit - , 1, JVD, lymphadenopathy, thyromegaly Respiratory exam: PRESENT: decreased breath sounds - left base, unlabored. ABSENT: rales, rhonchi, wheezes Cardiovascular exam: PRESENT: RRR. ABSENT: diastolic murmur, rubs, systolic murmur Pulses: PRESENT: normal carotid pulses, normal radial pulses, other - doppler DP Vascular exam: PRESENT: normal capillary refill GI/Abdominal exam: PRESENT: normal bowel sounds, soft. ABSENT: distended, guarding, mass, organolmegaly, rebound, tenderness Rectal exam: PRESENT: deferred Extremities exam: PRESENT: joint swelling, +2 edema, other - left knee, dressing intact Musculoskeletal exam: PRESENT: other - Done today Neurological exam: PRESENT: CN II-XII grossly intact, other Psychiatric exam: PRESENT: other Focused psych exam: PRESENT: other Skin exam: PRESENT: other - left knee erythemic around surgical incision and swollen Results Impressions: Chest X-Ray 09/21/16 06:10 IMPRESSION: Small-moderate bilateral lower lobar opacity -effusion, left more than right. Lines and tubes. Assessment & Plan - Diagnosis (1) Anaphylaxis Qualifiers: Encounter type: initial encounter Qualified Code(s): T78.2XXA - Anaphylactic shock, unspecified, initial encounter Is this a current diagnosis for this admission?: YesPlan: Patient will be maintained on the ventilator until oral angioedema resolves. Patient will be given IV Solu-Medrol, Benadryl and Pepcid. Angioedema most likely secondary to Percocet, Lyrica which was recently started,or lisinopril. We will discontinue these medications. Pulmonary consulted for ventilator management. (2) Acute respiratory failure Qualifiers: Respiratory failure complication: hypoxia and hypercapnia Qualified Code(s): J96.01 - Acute respiratory failure with hypoxia Is this a current diagnosis for this admission?: YesPlan: Patient will be maintained on mechanical ventilation. Pulmonary will be consulted. Chest xray shows left lower lobe atelectasis versus pneumonina Patient started on IV antibiotics for possible left lower lobe pneumonia. Will obtain CT of the chest tomorrow if no improvement. (3) Post op infection Qualifiers: Encounter type: initial encounter Qualified Code(s): T81.4XXA - Infection following a procedure, initial encounter Is this a current diagnosis for this admission?: YesPlan: Patient is status post left knee arthroplasty on 09/14/[address] Marc Peña. His knee is swollen and erythemic worsening since Wednesday according to his . Blood cultures 2 were obtained. Patient started on IV empiric antibiotics. Orthopedic consult was placed. 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 (5) COPD (chronic obstructive pulmonary disease) Qualifiers: COPD type: unspecified COPD Qualified Code(s): J44.9 - Chronic obstructive pulmonary disease, unspecified Is this a current diagnosis for this admission?: YesPlan: Nebulizer treatments. Sputum sample will be sent for Gram stain and culture (6) Left lower lobe pneumonia Qualifiers: Aspiration pneumonia type: unspecified Qualified Code(s): J69.0 - Pneumonitis due to inhalation of food and vomit Is this a current diagnosis for this admission?: YesPlan: Patient will be placed on IV broad spectrum antibiotics, cultures of sputum and blood will be obtained (7) Gastroesophageal reflux disease Qualifiers: Esophagitis presence: esophagitis presence not specified Qualified Code (s): K21.9 - Gastro-esophageal reflux disease without esophagitis Is this a current diagnosis for this admission?: YesPlan: Continue H2 blockers and PPI. (8) Pulmonary embolism Qualifiers: Chronicity: unspecified Acute cor pulmonale presence: without acute cor pulmonale Is this a current diagnosis for this admission?: YesPlan: Patient was on Eliquis prior to intubation. Will cover with Lovenox. (9) Sleep apnea Is this a current diagnosis for this admission?: YesPlan: Not presently initially while patient is on ventilator patient will only CPAP at at bedtime once he is extubated. (10) Hepatitis C Qualifiers: Viral hepatitis chronicity: chronic Hepatic coma status: without hepatic coma Qualified Code(s): B18.2 - Chronic viral hepatitis C Is this a current diagnosis for this admission?: Yes (11) Hypertension Qualifiers: Hypertension type: essential hypertension Qualified Code(s): I10 - Essential (primary) hypertension Is this a current diagnosis for this admission?: YesPlan: Patient is presently normotensive we will hold blood pressure medications and reinitiate as needed. - Time Time Spent: 50 to 70 Minutes Critical Time spent with patient: 35 or more minutes Medications reviewed and adjusted accordingly: Yes - Inpatient Certification Based on my medical assessment, after consideration of the patient's comorbidities, presenting symptoms, or acuity I expect that the services needed warrant INPATIENT care.: Yes I certify that my determination is in accordance with my understanding of Medicare's requirements for reasonable and necessary INPATIENT services [42 CFR 412.3e].: Yes Medical Necessity: Need For IV Fluids, Need for IV Antibiotics, Risk of Complication if Not Cared For in Hospital
[2016-09-21] MEDS: MIDAZOLAM HCL 100 ML IV PRN (12:26)
[2016-09-21] MEDS: METHYLPREDNISOLONE INJ 125 MG/2 ML SDV IV SCH ×3 (12:27→23:14)
[2016-09-21] MEDS: DIPHENHYDRAMINE HCL 50 MG/ML VIAL IV SCH ×3 (12:27→23:14)
[2016-09-21] MEDS: FAMOTIDINE INJ/PF 20 MG/2 ML SDV IV SCH ×2 (12:27→21:21)
[2016-09-21] MEDS: PIPERACILLIN SODIUM/TAZOBACTAM 3.375 GM in NORMAL SALINE 100 ML IV SCH ×3 (12:29→23:18)
[2016-09-21] MEDS: INSULIN GLARGINE,HUM.REC.ANLOG 1,000 UNIT/10 ML UNIT SUBCUT SCH ×2 (12:33→21:32)
[2016-09-21] MEDS: NORMAL SALINE 1000 ML 1,000 ML IV PRN ×2 (14:31→21:26)
[2016-09-21 14:44] LABS: ARTERIAL BLOOD BASE EXCESS 3.2 mmol/L; ARTERIAL BLOOD O2 SATURATION 95.9 % (94-98)
[2016-09-21] MEDS ORDERED: SUCCINYLCHOLINE CHLORIDE INJ 200 MG/10 ML VIAL ONE (16:35)
[2016-09-21] MEDS: INSULIN LISPRO 100 UNIT/ML 3 ML VIAL SUBCUT PRN ×2 (18:20→21:45)
--- NOTE | 2016-09-21 19:18 | XCELERA REPORT ---
[address] [address] Lower Extremity Venous Evaluation Name: SHANAE TSANG Age: 60 yrs Gender: Male : 1955 Patient Status: Inpatient Patient Location: \S\[facility]\S\A Study Date: 09/21/2016 08:10 AM Procedure: Color flow and duplex imaging of the veins of the left lower extremity as well as the right Common Femoral vein. Reason For Study: left leg Ordering Physician: TENNILLE WHITNEY Performed By: Yash Marc Right Sided Venous Evaluation The right common femoral vein is fully compressible. Spontaneous and phasic flow is present in the right common femoral vein. Left Sided Venous Evaluation Normal vessel filling wall to wall, compression and augmentation as well as Colour flow down to the infrageniculate veins. Interpretation Summary No duplex evidence of DVT or obstruction in the left lower extremity nor in the right Common Femoral vein. : TENNILLE WHITNEY > Cj Gurrola
[2016-09-21] MEDS ORDERED: APIXABAN 5 MG TABLET PO ONE (20:00)
[2016-09-21] MEDS: AMITRIPTYLINE HCL 75 MG TABLET PO SCH (21:24)
[2016-09-21] MEDS: VANCOMYCIN HCL 2,000 MG in DEXTROSE 5%-WATER 500 ML IV SCH (21:46)
[2016-09-21] MEDS: DOXAZOSIN MESYLATE 2 MG TABLET PO SCH (21:52)
[2016-09-21] MEDS: METOPROLOL TARTRATE 25 MG TABLET PO SCH (21:52)
[2016-09-21] MEDS ORDERED: (PENDING PHARMACY ID) (Ranitidine Hcl [Ranitidine Hcl] 150 MG) PO SCH (22:00)
[2016-09-21] MEDS ORDERED: FAMOTIDINE 20 MG TABLET PO SCH (22:00)
[2016-09-21] MEDS ORDERED: (PENDING PHARMACY ID) (Terazosin Hcl [Terazosin Hcl] 2 MG) PO SCH (22:00)
[2016-09-22] MEDS: PROPOFOL 100 ML IV PRN ×8 (00:10→22:24)
[2016-09-22] MEDS: IPRATROPIUM/ALBUTEROL 0.5-2.5 MG/3 ML AMPUL NEB SCH ×5 (00:10→20:27)
[2016-09-22] MEDS: MIDAZOLAM HCL 100 ML IV PRN ×2 (01:41→17:02)
[2016-09-22 04:20] LABS: ALANINE AMINOTRANSFERASE 28 U/L (21-72); ALBUMIN 2.8 g/dL (3.5-5.0); ALKALINE PHOSPHATASE 61 U/L (38-126); ANION GAP 8 (5-19); ASPARTATE AMINO TRANSFERASE 24 U/L (17-59); BILIRUBIN,DIRECT 0.4 mg/dL (0.0-0.4); BILIRUBIN,TOTAL 0.7 mg/dL (0.2-1.3); BLOOD UREA NITROGEN 13 mg/dL (7-20); CALCIUM 7.8 mg/dL (8.4-10.2); CARBON DIOXIDE 25 mmol/L (22-30); CHLORIDE 102 mmol/L (98-107); CREATININE RESULT 0.59 mg/dL (0.52-1.25); GLUCOSE 334 mg/dL (75-110); PHOSPHORUS 4.1 mg/dL (2.5-4.5); POTASSIUM 4.5 mmol/L (3.6-5.0); SODIUM 134.8 mmol/L (137-145); TOTAL PROTEIN 5.5 g/dL (6.3-8.2)
[2016-09-22 04:22] LABS: ABSOLUTE LYMPHOCYTES (AUTO) 0.7 10^3/uL (0.5-4.7); ABSOLUTE MONOCYTES (AUTO) 0.7 10^3/uL (0.1-1.4); ABSOLUTE NEUT (AUTO) 13.2 10^3/uL (1.7-8.2); BASOPHILS % (AUTO) 0.1 % (0-2); HEMATOCRIT 28.5 % (37.9-51.0); HGB HCT DIFFERENCE -1.5; LYMPHOCYTES % (AUTO) 5.1 % (13-45); MEAN CORPUSCULAR HEMOGLOBIN 28.5 pg (27.0-33.4); MEAN CORPUSCULAR HGB CONC 31.7 g/dL (32.0-36.0); MEAN CORPUSCULAR VOLUME 90 fl (80-97); MONOCYTES % (AUTO) 4.8 % (3-13); RED BLOOD COUNT 3.17 10^6/uL (4.35-5.55); RED CELL DISTRIBUTION WIDTH 13.5 % (11.5-14.0); WHITE BLOOD COUNT 14.7 10^3/uL (4.0-10.5)
[2016-09-22] MEDS: METHYLPREDNISOLONE INJ 125 MG/2 ML SDV IV SCH ×4 (05:51→23:24)
[2016-09-22] MEDS: VANCOMYCIN HCL 2,000 MG in DEXTROSE 5%-WATER 500 ML IV SCH ×2 (05:51→17:03)
[2016-09-22] MEDS: DIPHENHYDRAMINE HCL 50 MG/ML VIAL IV SCH ×4 (05:51→23:24)
[2016-09-22] MEDS: PIPERACILLIN SODIUM/TAZOBACTAM 3.375 GM in NORMAL SALINE 100 ML IV SCH ×4 (05:52→23:21)
[2016-09-22] MEDS: NORMAL SALINE 1000 ML 1,000 ML IV PRN (05:53)
[2016-09-22] MEDS: INSULIN LISPRO 100 UNIT/ML 3 ML VIAL SUBCUT PRN ×4 (06:41→22:15)
--- NOTE | 2016-09-22 06:43 | RADIOLOGY REPORT (SQ) ---
EXAM DESCRIPTION: CHEST SINGLE VIEW COMPLETED DATE/TIME: 09/22/2016 6:29 am REASON FOR STUDY: Intubation COMPARISON: 09/21/2016. EXAM PARAMETERS: NUMBER OF VIEWS: One view. TECHNIQUE: Single frontal radiographic view of the chest acquired. RADIATION DOSE: NA LIMITATIONS: None. FINDINGS: LUNGS AND PLEURA: Moderate opacity of the left lower hemithorax, 40%. Small left lung vol ume. Small right infrahilar opacity. MEDIASTINUM AND HILAR STRUCTURES: No masses. Contour normal. HEART AND VASCULAR STRUCTURES: Moderate enlargement of the cardiac silhouette. BONES: No acute findings. HARDWARE: Adequate appearing endotracheal tube and likely adequate nasogastric tube tip coursing infe riorly off the image over the left upper abdominal quadrant -stomach. OTHER: No other significant finding. IMPRESSION: No significant interval change. TECHNICAL DOCUMENTATION: JOB ID: [id number]
[2016-09-22 06:46] LABS: ARTERIAL BLOOD BASE EXCESS 2.8 mmol/L; ARTERIAL BLOOD O2 SATURATION 95.7 % (94-98)
[2016-09-22] MEDS ORDERED: ENOXAPARIN SODIUM INJ 40 MG/0.4 ML DISP.SYRIN SUBCUT SCH (08:00)
--- NOTE | 2016-09-22 08:34 | PROGRESS NOTE E ---
Progress Note NAME: SHANAE TSANG : 1955 AGE: 60Y DATE: 09/22/2016 ROOM: 612 SUBJECTIVE: The patient is currently lying in bed. He is intubated, sedated, and unable to provide any history. He has not had a sedation vacation. This morning, he is currently on propofol as well as Versed drip at this time. Patient still has marked edema. He has been afebrile. His blood pressures have been in an excellent range. Patient is unable to articulate any concerns at this time. REVIEW OF SYSTEMS: Unobtainable given the patient's status. MEDICATIONS: Medications have been reviewed. OBJECTIVE: GENERAL: The patient is a 60-year-old -[place] male who is currently sedated, does not appear to be in any acute distress, though. VITAL SIGNS: Temperature is 97.7, pulse 92, respirations 18, blood pressure is 122/74, oxygen saturation is 98% on 40% FiO2. SKIN: Warm and dry. No rash. He is not diaphoretic. HEENT: Pupils equal, round, reactive to light and accommodation. Conjunctiva is pink. ET tube is in place. Buccal edema and tongue edema noted significantly, but according to nursing staff, has improved in comparison to yesterday. CARDIOVASCULAR SYSTEM: Heart is regular. There is no murmur or rub. CHEST: Clear, symmetrical. Possible diminished rhonchorous breath sounds in right lung field. ABDOMEN: Soft, nontender, nondistended. Bowel sounds are present. EXTREMITIES: No clubbing, cyanosis, or pitting edema. GENITOURINARY: [place] is draining clear yellow urine. NEUROLOGICAL: Unable to fully assess. PSYCHIATRIC: Unable to fully assess. DIAGNOSTICS: Lab values are as follows: Hematology obtained on 09/22/2016: WBCs are 14.7, hemoglobin is 9.0, hematocrit is 28.5, platelet count is 226,000. ABG obtained on 09/22/2016: PH is 7.44, PCO2 is 40.5, PO2 is 76.2, bicarb is 27.1. Chemistry obtained on 09/22/2016: Sodium is 134, potassium 4.5, chloride is 102, carbon dioxide 25, BUN 13, creatinine is 0.59, glucose 334, calcium is 7.9, phosphorus 4.1, magnesium is 2.0, bilirubin is 0.7, AST 24, ALT is 28, Alk phos 61, troponin is 0.012, total protein 5.5, albumin 2.8. IMPRESSION AND PLAN: 1. ANGIOEDEMA WITH ANAPHYLAXIS. Will continue current regimen. This does appear slightly improved. Therefore, will defer epi drip for now and follow. 2. QUESTIONABLE ASPIRATION PNEUMONIA. Will continue antibiotic coverage for now and will continue 1 more day of vancomycin then discontinue. Chest x-ray is not too impressive. 3. ACUTE RESPIRATORY FAILURE WITH HYPOXIA. This is secondary to number 1. Will continue to ventilate given the patient's edema, does not appear he will be able to maintain his own airway. 4. DIABETES MELLITUS TYPE 2. Will continue Accu-Cheks as well as sliding scale coverage. 5. GASTROESOPHAGEAL REFLUX DISEASE. Will continue an H2 receptor renetta. 6. HISTORY OF PULMONARY EMBOLISM. Will continue Eliquis for now. 7. HEPATITIS C. The patient is naive to treatment. 8. HYPERTENSION. Will continue blood pressure medications. Will hold SHAMA inhibitor given patient's angioedema. 9. COPD. Will continue nebulizers. 10. PSEUDOHYPONATREMIA SECONDARY TO ELEVATED GLUCOSE. 11. OBESITY. 12. NUTRITION. Will start the patient on triple feeds. Hopefully, patient can be extubated tomorrow. DISPOSITION: The patient is a FULL CODE. Pending patient's symptomatology and diagnostic findings, will re-evaluate as needed. Time spent on this critical care visit including assessment, plan, physical examination, attempt at patient education, specialty collaboration is 35 minutes. DICTATING PHYSICIAN: FRANCISCO JAVIER SMITH NP [id number] PHY#: [id number] ID: [id number] JOB#: [id number] ACCT: [id number] cc: >
[2016-09-22] MEDS: AMLODIPINE BESYLATE 10 MG TABLET PO SCH (08:50)
[2016-09-22] MEDS: METOPROLOL TARTRATE 25 MG TABLET PO SCH ×2 (08:50→22:10)
[2016-09-22] MEDS: ASPIRIN 81 MG TABLET, ENT COATED PO SCH (08:51)
[2016-09-22] MEDS: FAMOTIDINE INJ/PF 20 MG/2 ML SDV IV SCH ×2 (09:07→22:11)
[2016-09-22] MEDS: INSULIN GLARGINE,HUM.REC.ANLOG 1,000 UNIT/10 ML UNIT SUBCUT SCH ×2 (09:11→22:11)
[2016-09-22] MEDS: APIXABAN 5 MG TABLET PO SCH ×2 (09:17→17:08)
[2016-09-22] MEDS ORDERED: APIXABAN 5 MG TABLET PO SCH (10:00)
[2016-09-22 10:30] LABS: CREATININE RESULT 0.58 mg/dL (0.52-1.25)
[2016-09-22] MEDS ORDERED: NORMAL SALINE 1000 ML 1,000 ML IV PRN (13:45)
[2016-09-22] MEDS: FENTANYL CITRATE INJ/PF 100 MCG/2 ML AMPUL IV PRN (17:06)
[2016-09-22] MEDS: AMITRIPTYLINE HCL 75 MG TABLET PO SCH (22:13)
[2016-09-22] MEDS: DOXAZOSIN MESYLATE 2 MG TABLET PO SCH (22:25)
[2016-09-23] MEDS: PROPOFOL 100 ML IV PRN ×8 (00:03→23:52)
[2016-09-23] MEDS: VANCOMYCIN HCL 2,000 MG in DEXTROSE 5%-WATER 500 ML IV SCH ×2 (02:09→10:08)
[2016-09-23] MEDS: MIDAZOLAM HCL 100 ML IV PRN (02:10)
[2016-09-23] MEDS: IPRATROPIUM/ALBUTEROL 0.5-2.5 MG/3 ML AMPUL NEB SCH ×4 (02:22→20:18)
[2016-09-23 03:55] LABS: HEMATOCRIT 28.2 % (37.9-51.0); HGB HCT DIFFERENCE -1.2; MEAN CORPUSCULAR HEMOGLOBIN 28.4 pg (27.0-33.4); MEAN CORPUSCULAR HGB CONC 31.9 g/dL (32.0-36.0); MEAN CORPUSCULAR VOLUME 89 fl (80-97); RED BLOOD COUNT 3.16 10^6/uL (4.35-5.55); RED CELL DISTRIBUTION WIDTH 14.1 % (11.5-14.0); WHITE BLOOD COUNT 16.7 10^3/uL (4.0-10.5)
[2016-09-23 04:17] LABS: ANION GAP 8 (5-19); BLOOD UREA NITROGEN 16 mg/dL (7-20); CALCIUM 7.5 mg/dL (8.4-10.2); CARBON DIOXIDE 26 mmol/L (22-30); CHLORIDE 103 mmol/L (98-107); CREATININE RESULT 0.59 mg/dL (0.52-1.25); GLUCOSE 339 mg/dL (75-110); MAGNESIUM 2.2 mg/dL (1.6-2.3); POTASSIUM 4.4 mmol/L (3.6-5.0); SODIUM 136.8 mmol/L (137-145)
[2016-09-23 04:54] LABS: ARTERIAL BLOOD BASE EXCESS 0.2 mmol/L; ARTERIAL BLOOD O2 SATURATION 82.4 % (94-98)
[2016-09-23] MEDS: PIPERACILLIN SODIUM/TAZOBACTAM 3.375 GM in NORMAL SALINE 100 ML IV SCH ×4 (05:12→23:55)
[2016-09-23] MEDS: METHYLPREDNISOLONE INJ 125 MG/2 ML SDV IV SCH ×4 (05:12→23:55)
[2016-09-23] MEDS: DIPHENHYDRAMINE HCL 50 MG/ML VIAL IV SCH ×4 (05:12→23:56)
[2016-09-23] MEDS: INSULIN LISPRO 100 UNIT/ML 3 ML VIAL SUBCUT PRN ×4 (05:19→21:58)
--- NOTE | 2016-09-23 07:01 | RADIOLOGY REPORT (SQ) ---
EXAM DESCRIPTION: CHEST SINGLE VIEW COMPLETED DATE/TIME: 09/23/2016 6:43 am REASON FOR STUDY: Intubation COMPARISON: Chest x-ray 09/22/2016. EXAM PARAMETERS: NUMBER OF VIEWS: One view TECHNIQUE: Single frontal radiograph of the chest. RADIATION DOSE: N/A LIMITATIONS: None. FINDINGS: TEMPORARY SUPPORT DEVICES:ETT in expected location. NG tube courses along the midline, it s tip is not well evaluated on this exam. LUNGS AND PLEURA: Small left-sided pleural effusion and left basilar airspace opacity. No pneumothor ax. Subsegmental atelectasis at the right lung base. MEDIASTINUM AND HILAR STRUCTURES: No masses. Contour normal. HEART AND VASCULAR STRUCTURES: The heart remains enlarged. No overt vascular congestion. BONES: No acute findings. IMPRESSION: Cardiomegaly. Subsegmental atelectasis at the right lung base. Small left-sided pleura l effusion and left basilar airspace opacity, may represent atelectasis or pneumonia. TECHNICAL DOCUMENTATION: JOB ID: [id number] [email or web address]- All Rights Reserved
--- NOTE | 2016-09-23 09:35 | PDOC CONSULTATION ---
History of Present Illness Admission Date/PCP: 09/21/16 07:59 History of Present Illness: This 60-year-old black male who is approximately 9-10 days status post left knee arthroplasty at [facility]. During his initial hospitalization there was potentially a reaction to medication and medication was with the help of the hospitalist service. The patient was discharged and doing reasonably well with physical therapy. He began to have trouble breathing but was seen in the emergency room where concern was for an anaphylactic reaction and compromise of the airway. He underwent intubation and is now in the care unit. Past Medical History Cardiac Medical History: Reports: Atrial Fibrillation, Congestive Heart Failure , Hyperlipidema, Hypertension, Pulmonary Embolism Denies: Coronary Artery Disease, Myocardial Infarction, Peripheral Vascular Disease, Heart Murmur Pulmonary Medical History: Reports: Asthma, Chronic Obstructive Pulmonary Disease (COPD), Pneumonia - 7 years ago, Sleep Apnea - hx only, not a current problem, no CPAP, Tuberculosis Denies: Bronchitis, Respiratory Failure EENT Medical History: Reports: None Neurological Medical History: Reports: None Endocrine Medical History: Reports: Diabetes Mellitus Type 2 Denies: Hyperthyroidism, Hypothyroidism Renal/ Medical History: Reports: None Denies: End Stage Renal Disease Malignancy Medical History: Reports: None Denies: Lung Cancer GI Medical History: Reports: Gastroesophageal Reflux Disease, Hepatitis - Hep C Denies: Crohn's Disease, Hiatal Hernia Musculoskeltal Medical History: Reports: Arthritis Denies: Fibromyalgia Psychiatric Medical History: Denies: Bipolar Disorder, Dementia, Depression, Post Traumatic Stress Disorder Traumatic Medical History: Reports: None Infectious Medical History: Reports: None Past Surgical History Past Surgical History: Reports: Appendectomy, Herniorrhaphy, Orthopedic Surgery - Spinal fusion. Meniscus repair. Left knee arthroplasty on 09/14/2016 Denies: Cholecystectomy, Colostomy, Coronary Artery Bypass Graft, Gastric Bypass Surgery, Pacemaker, Tonsillectomy Social History Lives with: Spouse/Significant other Smoking Status: Former Smoker Number of Years Smokin Frequency of Alcohol Use: None Hx Recreational Drug Use: No Drugs: Cocaine Hx Prescription Drug Abuse: No - Advance Directive Resuscitation Status: Full Code Family History Family History: Arthritis, CAD - Mother and brother, CVA, DM, Hyperlipidemia, Hypertension, Malignancy Parental Family History Reviewed: No Children Family History Reviewed: No Sibling(s) Family History Reviewed.: No Medication/Allergy Home Medications: Amitriptyline HCl [Elavil 75 Mg Tablet] 75 mg PO QHS 09/21/16 Amlodipine Besylate 10 mg PO QAM 09/21/16 Apixaban [Eliquis 5 mg Tablet] 5 mg PO Q12 09/21/16 Aspirin [Ecotrin 81 mg EC Tablet] 81 mg PO QAM 09/21/16 Ferrous Sulfate [Feosol 325 mg Tablet] 325 mg PO DAILY 09/21/16 Gabapentin [Neurontin 100 mg Capsule] 100 mg PO Q8 09/21/16 Hydrochlorothiazide 25 mg PO QAM 09/21/16 Insulin Glargine,Hum.rec.anlog [Lantus] 50 units SQ QHS 09/21/16 Metformin HCl [Glucophage] 1,000 mg PO BIDACBS 09/21/16 Metoprolol Tartrate [Lopressor 25 mg Tablet] 25 mg PO Q12 09/21/16 Omeprazole 40 mg PO QAM 09/21/16 Oxycodone HCl [Oxycodone HCl] 5 mg PO Q6HP PRN 09/21/16 Pravastatin Sodium [Pravachol] 20 mg PO QHS 09/21/16 Ranitidine HCl 150 mg PO QHS 09/21/16 Terazosin HCl 4 mg PO QHS 09/21/16 Tiotropium [place] [Spiriva Handihaler 18 mcg/dose (30 Dose)] 1 cap IH QAM 09/21 Tramadol HCl [Ultram] 50 mg PO QIDP PRN 09/21/16 Albuterol Sulfate [Proair HFA] 2 puff IH Q6HP PRN 09/22/16 Budesonide/Formoterol Fumarate [Symbicort Hfa 160-4.5 Mcg Inhaler 6 gm] 2 puff IH Q12 09/22/16 Fluticasone Propionate [Flonase Nasal [place] 50 Mcg/[place] 16 gm] 1 spray NAREB Q12 09/22/16 Insulin Aspart [Novolog Insulin 100 Unit/1 ml 10 ml] 30 unit SUBCUT ACSUPPER Insulin Aspart [Novolog Insulin 100 Unit/1 ml 10 ml] 36 unit SUBCUT ACBRKFST Lactulose [Constulose 10 gm/15 mL Oral Solution] 15 ml PO DAILY 09/22/16 Sildenafil Citrate [Viagra] 100 mg PO ASDIR PRN MDD 1 TAB 09/22/16 Allergies/Adverse Reactions: codeine [Codeine] Allergy (Severe, Verified 09/21/16 18:35) Facial swelling hydrocodone bitartrate [From Vicodin] Allergy (Severe, Verified 09/21/16 18:35) Anaphylaxis hydromorphone [From Dilaudid] Allergy (Verified 09/21/16 18:35) Difficulty breathing morphine Allergy (Verified 09/21/16 18:35) Itching oxycodone Allergy (Verified 09/21/16 18:35) Swelling of tongue Review of Systems ROS unobtainable: Due to endotracheal tube Physical Exam Vital Signs: Temp Pulse Resp BP Pulse Ox 36.4 C 73 18 110/68 100 09/23/16 07:53 09/23/16 08:12 09/23/16 07:53 09/23/16 07:53 09/23/16 07:53 Intake & Output 09/22/16 09/23/16 09/24/16 06:59 06:59 06:59 Intake Total 4229 4316 Output Total 3525 4350 200 Balance 704 -34 -200 Weight 140.4 kg 143.3 kg Physical Exam: Patient intubated Head exam: PRESENT: normocephalic Mouth exam: PRESENT: other - Glossal edema Cardiovascular exam: PRESENT: RRR GI/Abdominal exam: PRESENT: soft Rectal exam: PRESENT: deferred Musculoskeletal exam: PRESENT: other - Knee dressing clean dry and intact. Skin edges are approximated with ever. There is moderate pedal edema. There is brisk capillary refill. Results Laboratory Results: 09/23/16 03:50 09/23/16 03:50 09/22/16 09/23/16 09/23/16 09:33 03:50 03:50 WBC 16.7 H RBC 3.16 L Hgb 9.0 L Hct 28.2 L MCV 89 MCH 28.4 MCHC 31.9 L RDW 14.1 H Plt Count 244 Carbonic Acid HCO3/H2CO3 Ratio ABG pH ABG pCO2 ABG pO2 ABG HCO3 ABG O2 Saturation ABG Base Excess FiO2 Sodium 136.8 L Potassium 4.4 Chloride 103 Carbon Dioxide 26 Anion Gap 8 BUN 16 Creatinine 0.58 0.59 Est GFR ( Amer) > 60 > 60 Est GFR (Non-Af Amer) > 60 > 60 Glucose 339 H Calcium 7.5 L Magnesium 2.2 09/23/16 04:45 WBC RBC Hgb Hct MCV MCH MCHC RDW Plt Count Carbonic Acid 1.21 HCO3/H2CO3 Ratio 20:1 ABG pH 7.41 ABG pCO2 40.1 ABG pO2 45.9 L ABG HCO3 24.8 ABG O2 Saturation 82.4 L ABG Base Excess 0.2 FiO2 40% Sodium Potassium Chloride Carbon Dioxide Anion Gap BUN Creatinine Est GFR ( Amer) Est GFR (Non-Af Amer) Glucose Calcium Magnesium 09/21/16 10:10 Tracheal Aspirate Gram Stain - Final 09/21/16 10:10 Tracheal Aspirate Sputum Culture - Final Escherichia Coli Normal Katya 09/22/16 03:56 Troponin I < 0.012 Impressions: KUB X-Ray 09/21/16 08:01 IMPRESSION: 1. NG tube placement as described. 2. Possible left lower lobe pneumonia versus atelectasis. Chest X-Ray 09/23/16 06:00 IMPRESSION: Cardiomegaly. Subsegmental atelectasis at the right lung base. Small left-sided pleural effusion and left basilar airspace opacity, may represent atelectasis or pneumonia. Status: Imported from PACS Assessment & Plan - Diagnosis (1) Arthritis of knee, left Is this a current diagnosis for this admission?: YesPlan: At the time of admission there was some concern about swelling in the left lower extremity reflecting an underlying postoperative infection. My clinical impression is that there is no evidence for infection at the surgical site currently. Plan will be for mobilization with physical therapy for range of motion, strengthening, weightbearing or sterile ambulation as soon as the patient's medical condition permits - Time Time Spent: 50 to 70 Minutes Critical Time spent with patient: 15-24 minutes
[2016-09-23 09:45] LABS: HEMATOCRIT 30.4 % (37.9-51.0); HEMOGLOBIN 9.7 g/dL (13.5-17.0); HGB HCT DIFFERENCE -1.3; MEAN CORPUSCULAR HEMOGLOBIN 28.6 pg (27.0-33.4); MEAN CORPUSCULAR HGB CONC 31.8 g/dL (32.0-36.0); MEAN CORPUSCULAR VOLUME 90 fl (80-97); RED BLOOD COUNT 3.38 10^6/uL (4.35-5.55); WHITE BLOOD COUNT 16.2 10^3/uL (4.0-10.5)
[2016-09-23] MEDS: FAMOTIDINE INJ/PF 20 MG/2 ML SDV IV SCH ×2 (09:51→21:57)
[2016-09-23] MEDS: ASPIRIN 81 MG TABLET, ENT COATED PO SCH (09:52)
[2016-09-23] MEDS: METOPROLOL TARTRATE 25 MG TABLET PO SCH ×2 (09:53→21:57)
[2016-09-23] MEDS: AMLODIPINE BESYLATE 10 MG TABLET PO SCH (09:53)
[2016-09-23] MEDS: APIXABAN 5 MG TABLET PO SCH ×2 (09:54→17:31)
[2016-09-23] MEDS: INSULIN GLARGINE,HUM.REC.ANLOG 1,000 UNIT/10 ML UNIT SUBCUT SCH ×2 (09:55→21:57)
[2016-09-23 10:04] LABS: PHOSPHORUS 4.3 mg/dL (2.5-4.5)
[2016-09-23 10:51] LABS: BAND NEUTROPHILS % (MANUAL) 1 % (3-5); BASOPHILS % (MANUAL) 0 % (0-2); EOSINOPHILS % (MANUAL) 0 % (0-6); LYMPHOCYTES % (MANUAL) 3 % (13-45); NUCLEATED RED BLOOD CELLS 1 /100 WBC (0); TOTAL CELLS COUNTED 100
[2016-09-23 10:54] LABS: OVALOCYTES 2+; POIKILOCYTOSIS 2+; POLYCHROMASIA 1+; TOXIC GRANULATION SLIGHT
[2016-09-23] MEDS: FENTANYL CITRATE INJ/PF 100 MCG/2 ML AMPUL IV PRN ×2 (11:39→15:57)
--- NOTE | 2016-09-23 13:54 | PROGRESS NOTE E ---
Progress Note NAME: SHANAE TSANG : 1955 AGE: 60Y DATE: 09/23/2016 ROOM: 612 SUBJECTIVE: The patient is lying in bed. He remains intubated and sedated. The patient has been oxygenating well. Edema does appear to be improved. The patient's sputum did grow E. coli, which was consistent with the suspected aspiration. The patient has been also seeing Orthopedics, who feel his knee is not an issue. Chest x-ray does show overall improvement. The patient is unable to voice any concerns at this time. REVIEW OF SYSTEMS: Unobtainable, given the patient's intubation and sedation. MEDICATIONS: Have been reviewed. OBJECTIVE: GENERAL: The patient is a 60-year-old male who is currently intubated and sedated. Unable to provide any history, but did awaken during sedation vacation to follow commands. Does not appear to be in any acute distress. VITAL SIGNS FOLLOWS: Temperature is 97.7, pulse 90, respirations 17, blood pressure is 117/74, oxygen saturation is 93% on 30% FiO2. SKIN: Warm and dry. No rash. He is not diaphoretic. HEENT: Pupils are reactive. ET tube in place. Buccal edema that overall appears improved in comparison to yesterday. Tongue is now midline and will retract into the patient's mouth. NECK: Supple. CARDIOVASCULAR: Heart is regular with no murmur or rub. CHEST: Diminished, but clear. Symmetrical, mechanical. ABDOMEN: Soft, nondistended. Bowel sounds are present. EXTREMITIES: Patient's left postoperative knee still edematous, but is not hot to the touch. Suture line is clean and intact. GENITOURINARY: [place] is draining clear yellow urine. PSYCHIATRIC: Unable to fully assess. DIAGNOSTICS: Lab values are as follows: Hematology obtained on 09/23/2016: WBCs are 16.2, hemoglobin is 10.7, hematocrit is 30.4, platelet count is 257,000. ABG obtained on 09/23/2016 - pH of 7.41, pCO2 of 40.1, pO2 is 40.9, bicarb is 24.8. Chemistry obtained on 09/23/2016: Sodium is 136, potassium 4.4, chloride is 103, carbon dioxide 26, BUN 16, creatinine is 0.59, glucose 339, calcium is 7.5, magnesium is 2.2, phosphorus 4.3. BNP is 338. Albumin is 3.0. MICROBIOLOGY: Blood cultures obtained on 09/21/2016 reveal no growth. Sputum culture obtained on 09/21/2016 reveals E. coli. IMPRESSION AND PLAN: 1. ANGIOEDEMA WITH ANAPHYLAXIS. The patient will continue current regimen. Overall appears improved. Will decrease steroids. The patient does not require an epi drip for now. Continue H1 and H2 receptor blockers and follow. 2. ASPIRATION PNEUMONIA WITH E. COLI. Will continue Zosyn for now and will discontinue vancomycin. 3. ACUTE RESPIRATORY FAILURE WITH HYPOXIA. Secondary to number 1 and 2. Patient overall appears improved, however, given the patient's ABG this morning we will discuss the case with Pulmonology to see if move forward with extubation. 4. DIABETES MELLITUS, TYPE 2. Will continue Accu-Cheks, as well as sliding scale coverage. 5. GASTROESOPHAGEAL REFLUX DISEASE. Patient is on H2 receptor renteta. 6. HISTORY OF PULMONARY EMBOLISM. Will continue Eliquis. 7. HEPATITIS C. The patient is naive to treatment. 8. HYPERTENSION. Will continue blood pressure medications, but again have added SHAMA inhibitors to allergy list. 9. COPD. Will continue nebulizers. 10. PSEUDOHYPONATREMIA SECONDARY TO ELEVATED GLUCOSE. 11. OBESITY. 12. NUTRITION. The patient is on trickle feeds for now. Hopefully, he will be extubated today. Time spent on this critical care visit including assessment, plan, physical examination, attempted patient education, specialty collaboration is 30 minutes. DICTATING PHYSICIAN: FRANCISCO JAVIER SMITH NP [id number] PHY#: [id number] [id number] JOB#: [id number] ACCT: [id number] cc: >
[2016-09-23] MEDS: TOBRAMYCIN SULFATE NEB 40 MG/ML 30 ML NEB SCH (20:17)
[2016-09-23] MEDS: AMITRIPTYLINE HCL 75 MG TABLET PO SCH (21:57)
[2016-09-23] MEDS: DOXAZOSIN MESYLATE 2 MG TABLET PO SCH (21:57)
[2016-09-24] MEDS: PROPOFOL 100 ML IV PRN ×4 (01:58→07:38)
[2016-09-24] MEDS: IPRATROPIUM/ALBUTEROL 0.5-2.5 MG/3 ML AMPUL NEB SCH ×2 (02:03→07:37)
[2016-09-24 03:59] LABS: HEMATOCRIT 30.5 % (37.9-51.0); HEMOGLOBIN 9.5 g/dL (13.5-17.0); MEAN CORPUSCULAR HEMOGLOBIN 28.2 pg (27.0-33.4); MEAN CORPUSCULAR HGB CONC 31.3 g/dL (32.0-36.0); MEAN CORPUSCULAR VOLUME 90 fl (80-97); RED BLOOD COUNT 3.38 10^6/uL (4.35-5.55)
[2016-09-24 04:18] LABS: BAND NEUTROPHILS % (MANUAL) 1 % (3-5); BASOPHILS % (MANUAL) 0 % (0-2); EOSINOPHILS % (MANUAL) 0 % (0-6); LYMPHOCYTES % (MANUAL) 5 % (13-45); TOTAL CELLS COUNTED 100
[2016-09-24 04:19] LABS: ANISOCYTOSIS SLIGHT; POIKILOCYTOSIS 2+; POLYCHROMASIA 2+; ROULEAUX 2+; TOXIC GRANULATION 1+; TOXIC VACUOLATION PRESENT
[2016-09-24 04:22] LABS: ARTERIAL BLOOD O2 SATURATION 95.4 % (94-98)
[2016-09-24 04:29] LABS: ALANINE AMINOTRANSFERASE 29 U/L (21-72); ALBUMIN 2.8 g/dL (3.5-5.0); ALKALINE PHOSPHATASE 55 U/L (38-126); ANION GAP 10 (5-19); ASPARTATE AMINO TRANSFERASE 14 U/L (17-59); BILIRUBIN,DIRECT 0.5 mg/dL (0.0-0.4); BILIRUBIN,TOTAL 0.7 mg/dL (0.2-1.3); BLOOD UREA NITROGEN 21 mg/dL (7-20); CALCIUM 7.6 mg/dL (8.4-10.2); CARBON DIOXIDE 25 mmol/L (22-30); CHLORIDE 105 mmol/L (98-107); CREATININE RESULT 0.66 mg/dL (0.52-1.25); GLUCOSE 316 mg/dL (75-110); MAGNESIUM 2.4 mg/dL (1.6-2.3); POTASSIUM 4.4 mmol/L (3.6-5.0); SODIUM 139.7 mmol/L (137-145); TOTAL PROTEIN 5.5 g/dL (6.3-8.2)
[2016-09-24] MEDS: MIDAZOLAM HCL 100 ML IV PRN (05:11)
[2016-09-24] MEDS: METHYLPREDNISOLONE INJ 125 MG/2 ML SDV IV SCH (05:11)
[2016-09-24] MEDS: PIPERACILLIN SODIUM/TAZOBACTAM 3.375 GM in NORMAL SALINE 100 ML IV SCH ×3 (05:12→17:12)
[2016-09-24] MEDS: DIPHENHYDRAMINE HCL 50 MG/ML VIAL IV SCH ×3 (05:12→17:11)
[2016-09-24] MEDS: INSULIN LISPRO 100 UNIT/ML 3 ML VIAL SUBCUT PRN ×3 (05:25→17:15)
--- NOTE | 2016-09-24 06:50 | RADIOLOGY REPORT (SQ) ---
EXAM DESCRIPTION: CHEST SINGLE VIEW COMPLETED DATE/TIME: 09/24/2016 6:14 am REASON FOR STUDY: Intubation COMPARISON: 09/23/2016. EXAM PARAMETERS: NUMBER OF VIEWS: One view. TECHNIQUE: Single frontal radiographic view of the chest acquired. RADIATION DOSE: NA LIMITATIONS: None. FINDINGS: LUNGS AND PLEURA: Moderate left basilar opacity -effusion. Moderate lung volumes. Small right basilar atelectasis or scar. MEDIASTINUM AND HILAR STRUCTURES: No masses. Contour normal. HEART AND VASCULAR STRUCTURES: Mild enlargement of the cardiac silhouette. BONES: No acute findings. HARDWARE: Adequate appearing endotracheal tube. Likely adequate nasogastric tube cord doses inferior ly off the image over the left upper abdominal quadrant. OTHER: No other significant finding. IMPRESSION: No significant interval change. TECHNICAL DOCUMENTATION: JOB ID: [id number]
--- NOTE | 2016-09-24 07:24 | PDOC PROGRESS REPORT ---
Subjective Progress Note for:: 09/24/16 Subjective:: Patient intubated and on a consistent unchanged SIMV of 16 Physical Exam Vital Signs: Temp Pulse Resp BP Pulse Ox 36.8 C 91 16 132/83 H 98 09/24/16 04:00 09/24/16 04:00 09/24/16 06:00 09/24/16 05:53 09/24/16 06:00 Intake & Output 09/23/16 09/24/16 09/25/16 06:59 06:59 06:59 Intake Total 4316 2584 Output Total 4352 6815 Balance -34 -1131 Weight 143.3 kg 141.6 kg General appearance: PRESENT: no acute distress Head exam: PRESENT: normocephalic Cardiovascular exam: PRESENT: RRR Musculoskeletal exam: PRESENT: other - The incision clean dry and intact. [place] in place. Results Laboratory Results: 09/24/16 03:37 09/24/16 03:37 09/23/16 09/23/16 09/24/16 09:30 09:30 03:37 WBC 16.2 H 15.0 H RBC 3.38 L 3.38 L Hgb 9.7 L 9.5 L Hct 30.4 L 30.5 L MCV 90 90 MCH 28.6 28.2 MCHC 31.8 L 31.3 L RDW 14.0 14.0 Plt Count 257 272 Seg Neutrophils % Not Reportable Not Reportable Lymphocytes % Not Reportable Not Reportable Monocytes % Not Reportable Not Reportable Eosinophils % Not Reportable Not Reportable Basophils % Not Reportable Not Reportable Absolute Neutrophils Not Reportable Not Reportable Absolute Lymphocytes Not Reportable Not Reportable Absolute Monocytes Not Reportable Not Reportable Absolute Eosinophils Not Reportable Not Reportable Absolute Basophils Not Reportable Not Reportable Carbonic Acid HCO3/H2CO3 Ratio ABG pH ABG pCO2 ABG pO2 ABG HCO3 ABG O2 Saturation ABG Base Excess FiO2 Sodium Potassium Chloride Carbon Dioxide Anion Gap BUN Creatinine Est GFR ( Amer) Est GFR (Non-Af Amer) Glucose Calcium Phosphorus 4.3 Magnesium Total Bilirubin AST ALT Alkaline Phosphatase Total Protein Albumin 3.0 L 09/24/16 09/24/16 03:37 04:10 WBC RBC Hgb Hct MCV MCH MCHC RDW Plt Count Seg Neutrophils % Lymphocytes % Monocytes % Eosinophils % Basophils % Absolute Neutrophils Absolute Lymphocytes Absolute Monocytes Absolute Eosinophils Absolute Basophils Carbonic Acid 1.20 HCO3/H2CO3 Ratio 23:1 ABG pH 7.46 H ABG pCO2 40.0 ABG pO2 72.4 L ABG HCO3 28.1 H ABG O2 Saturation 95.4 ABG Base Excess 4.0 FiO2 40% Sodium 139.7 Potassium 4.4 Chloride 105 Carbon Dioxide 25 Anion Gap 10 BUN 21 H Creatinine 0.66 Est GFR ( Amer) > 60 Est GFR (Non-Af Amer) > 60 Glucose 316 H Calcium 7.6 L Phosphorus Magnesium 2.4 H Total Bilirubin 0.7 AST 14 L ALT 29 Alkaline Phosphatase 55 Total Protein 5.5 L Albumin 2.8 L 09/21/16 09:55 Catheterized Urine Urine Culture - Final NO GROWTH 2 DAYS 09/21/16 10:10 Tracheal Aspirate Gram Stain - Final 09/21/16 10:10 Tracheal Aspirate Sputum Culture - Final Escherichia Coli Normal Katya 09/22/16 09/23/16 03:56 09:30 Troponin I < 0.012 NT-Pro-B Natriuret Pep 338 Impressions: KUB X-Ray 09/21/16 08:01 IMPRESSION: 1. NG tube placement as described. 2. Possible left lower lobe pneumonia versus atelectasis. Chest X-Ray 09/24/16 06:00 IMPRESSION: No significant interval change. Assessment & Plan - Diagnosis (1) Arthritis of knee, left Is this a current diagnosis for this admission?: YesPlan: 60-year-old black male status post left knee arthroplasty with a postoperative anaphylactic reaction and now intubation. The knee standpoint physical therapy can begin bedside and advance as his medical condition permits. Franky to be removed on postop day 14 - Time Time Spent with patient: 15-24 minutes
[2016-09-24] MEDS: TOBRAMYCIN SULFATE NEB 40 MG/ML 30 ML NEB SCH ×2 (07:38→20:12)
[2016-09-24] MEDS: AMLODIPINE BESYLATE 10 MG TABLET PO SCH (09:15)
[2016-09-24] MEDS: APIXABAN 5 MG TABLET PO SCH ×2 (09:20→17:15)
[2016-09-24] MEDS: INSULIN GLARGINE,HUM.REC.ANLOG 1,000 UNIT/10 ML UNIT SUBCUT SCH ×3 (09:20→22:15)
[2016-09-24] MEDS: METOPROLOL TARTRATE 25 MG TABLET PO SCH ×2 (09:20→22:15)
[2016-09-24] MEDS: ASPIRIN 81 MG TABLET, ENT COATED PO SCH (09:20)
[2016-09-24] MEDS: FAMOTIDINE INJ/PF 20 MG/2 ML SDV IV SCH (09:20)
--- NOTE | 2016-09-24 14:40 | PDOC CONSULTATION ---
Consultation Consult Date: 09/21/16 Attending physician:: JING VILLALPANDO Consult reason:: anaphylaxsis History of Present Illness Admission Date/PCP: 09/21/16 08:11 History of Present Illness: This 60-year-old black male who is approximately 9-10 days status post left knee arthroplasty at [facility]. During his initial hospitalization there was potentially a reaction to medication and medication was with the help of the hospitalist service. The patient was discharged and doing reasonably well with physical therapy. He began to have trouble breathing but was seen in the emergency room where concern was for an anaphylactic reaction and compromise of the airway. He underwent intubation and is now in the care unit. Past Medical History Cardiac Medical History: Reports: Atrial Fibrillation, Congestive Heart Failure , Hyperlipidema, Hypertension, Pulmonary Embolism Denies: Coronary Artery Disease, Myocardial Infarction, Peripheral Vascular Disease, Heart Murmur Pulmonary Medical History: Reports: Asthma, Chronic Obstructive Pulmonary Disease (COPD), Pneumonia - 7 years ago, Sleep Apnea - hx only, not a current problem, no CPAP, Tuberculosis Denies: Bronchitis, Respiratory Failure Neurological Medical History: Endocrine Medical History: Reports: Diabetes Mellitus Type 2 Denies: Hyperthyroidism, Hypothyroidism Renal/ Medical History: Denies: End Stage Renal Disease Malignancy Medical History: Denies: Lung Cancer GI Medical History: Reports: Gastroesophageal Reflux Disease, Hepatitis - Hep C Denies: Crohn's Disease, Hiatal Hernia Musculoskeltal Medical History: Reports: Arthritis Denies: Fibromyalgia Psychiatric Medical History: Denies: Bipolar Disorder, Dementia, Depression, Post Traumatic Stress Disorder Past Surgical History Past Surgical History: Reports: Appendectomy, Herniorrhaphy, Orthopedic Surgery - Spinal fusion. Meniscus repair. Denies: Cholecystectomy, Colostomy, Coronary Artery Bypass Graft, Gastric Bypass Surgery, Pacemaker, Tonsillectomy Social History Smoking Status: Former Smoker Frequency of Alcohol Use: None Hx Recreational Drug Use: No Drugs: Cocaine Hx Prescription Drug Abuse: No Family History Family History: Arthritis, CAD - Mother and brother, CVA, DM, Hyperlipidemia, Hypertension, Malignancy Parental Family History Reviewed: No Children Family History Reviewed: No Sibling(s) Family History Reviewed.: No Medication/Allergy Home Medications: Amitriptyline HCl [Elavil 75 Mg Tablet] 75 mg PO QHS 09/21/16 Amlodipine Besylate 10 mg PO QAM 09/21/16 Apixaban [Eliquis 5 mg Tablet] 5 mg PO Q12 09/21/16 Aspirin [Ecotrin 81 mg EC Tablet] 81 mg PO QAM 09/21/16 Ferrous Sulfate [Feosol 325 mg Tablet] 325 mg PO DAILY 09/21/16 Gabapentin [Neurontin 100 mg Capsule] 100 mg PO Q8 09/21/16 Hydrochlorothiazide 25 mg PO QAM 09/21/16 Insulin Glargine,Hum.rec.anlog [Lantus] 50 units SQ QHS 09/21/16 Metformin HCl [Glucophage] 1,000 mg PO BIDACBS 09/21/16 Metoprolol Tartrate [Lopressor 25 mg Tablet] 25 mg PO Q12 09/21/16 Omeprazole 40 mg PO QAM 09/21/16 Oxycodone HCl [Oxycodone HCl] 5 mg PO Q6HP PRN 09/21/16 Pravastatin Sodium [Pravachol] 20 mg PO QHS 09/21/16 Ranitidine HCl 150 mg PO QHS 09/21/16 Terazosin HCl 4 mg PO QHS 09/21/16 Tiotropium [place] [Spiriva Handihaler 18 mcg/dose (30 Dose)] 1 cap IH QAM 09/21 Tramadol HCl [Ultram] 50 mg PO QIDP PRN 09/21/16 Albuterol Sulfate [Proair HFA] 2 puff IH Q6HP PRN 09/22/16 Budesonide/Formoterol Fumarate [Symbicort Hfa 160-4.5 Mcg Inhaler 6 gm] 2 puff IH Q12 09/22/16 Fluticasone Propionate [Flonase Nasal [place] 50 Mcg/[place] 16 gm] 1 spray NAREB Q12 09/22/16 Insulin Aspart [Novolog Insulin 100 Unit/1 ml 10 ml] 30 unit SUBCUT ACSUPPER Insulin Aspart [Novolog Insulin 100 Unit/1 ml 10 ml] 36 unit SUBCUT ACBRKFST Lactulose [Constulose 10 gm/15 mL Oral Solution] 15 ml PO DAILY 09/22/16 Sildenafil Citrate [Viagra] 100 mg PO ASDIR PRN MDD 1 TAB 09/22/16 Allergies/Adverse Reactions: codeine [Codeine] Allergy (Severe, Verified 09/21/16 18:35) Facial swelling hydrocodone bitartrate [From Vicodin] Allergy (Severe, Verified 09/21/16 18:35) Anaphylaxis lisinopril Allergy (Severe, Verified 09/23/16 10:02) Anaphylaxis hydromorphone [From Dilaudid] Allergy (Verified 09/21/16 18:35) Difficulty breathing morphine Allergy (Verified 09/21/16 18:35) Itching oxycodone Allergy (Verified 09/21/16 18:35) Swelling of tongue Review of Systems ROS unobtainable: Due to endotracheal tube Physical Exam Vital Signs: Temp Pulse Resp BP Pulse Ox 98.1 F 135 H 18 126/84 H 96 09/21/16 07:11 09/21/16 05:23 09/21/16 09:01 09/21/16 09:01 09/21/16 09:01 General appearance: PRESENT: no acute distress, disheveled, obese, well- developed Head exam: PRESENT: atraumatic, normocephalic Eye exam: PRESENT: conjunctiva pale Mouth exam: PRESENT: dry mucosa, neck supple, other - ET tube in place; tongue protruding from oral cavity; facial swelling Neck exam: ABSENT: carotid bruit, JVD, lymphadenopathy, thyromegaly Respiratory exam: PRESENT: decreased breath sounds, prolonged expiratory phas, rhonchi, symmetrical, unlabored Cardiovascular exam: PRESENT: irregular rhythm Pulses: PRESENT: normal radial pulses GI/Abdominal exam: PRESENT: normal bowel sounds, soft. ABSENT: distended, guarding, mass, organolmegaly, rebound, tenderness Rectal exam: PRESENT: deferred Gentrourinary exam: PRESENT: indwelling catheter Musculoskeletal exam: PRESENT: normal inspection Skin exam: PRESENT: dry, warm Results Impressions: Chest X-Ray 09/21/16 06:10 IMPRESSION: Small-moderate bilateral lower lobar opacity -effusion, left more than right. Lines and tubes. Assessment & Plan - Diagnosis (1) Anaphylaxis Qualifiers: Encounter type: initial encounter Qualified Code(s): T78.2XXA - Anaphylactic shock, unspecified, initial encounter Is this a current diagnosis for this admission?: YesPlan: Airway compromise severely continue mechanical ventilation (2) COPD (chronic obstructive pulmonary disease) Qualifiers: COPD type: unspecified COPD Qualified Code(s): J44.9 - Chronic obstructive pulmonary disease, unspecified Is this a current diagnosis for this admission?: YesPlan: Bronchodilator therapy (3) Gastroesophageal reflux disease Qualifiers: Esophagitis presence: esophagitis presence not specified Qualified Code (s): K21.9 - Gastro-esophageal reflux disease without esophagitis Is this a current diagnosis for this admission?: YesPlan: PPI H2 renetta (4) Left lower lobe pneumonia Qualifiers: Aspiration pneumonia type: unspecified Qualified Code(s): J69.0 - Pneumonitis due to inhalation of food and vomit Is this a current diagnosis for this admission?: YesPlan: Retrocardiac density no significant endotracheal aspirates - Time Critical Time spent with patient: 35 or more minutes - 55 minutes
--- NOTE | 2016-09-24 14:44 | PDOC PROGRESS REPORT ---
Subjective Progress Note for:: 09/22/16 Subjective:: Intubated and sedated unchanged Physical Exam Vital Signs: Temp Pulse Resp BP Pulse Ox 97.9 F 93 17 111/68 97 09/22/16 08:00 09/22/16 08:39 09/22/16 08:00 09/22/16 08:00 09/22/16 08:00 Intake & Output 09/21/16 09/22/16 09/23/16 06:59 06:59 06:59 Intake Total 4229 Output Total 3525 375 Balance 704 -375 Weight 140.4 kg General appearance: PRESENT: no acute distress, disheveled, obese, well- developed Head exam: PRESENT: atraumatic, normocephalic Eye exam: PRESENT: conjunctiva pale Mouth exam: PRESENT: dry mucosa, neck supple, other - ET tube in place, facial swelling, tongue protruding from oral cavity minimal decrease over the last 24 hours Neck exam: PRESENT: carotid bruit Respiratory exam: PRESENT: decreased breath sounds, prolonged expiratory phas, rhonchi, symmetrical, unlabored Cardiovascular exam: PRESENT: RRR, +S1, +S2 Pulses: PRESENT: normal radial pulses GI/Abdominal exam: PRESENT: normal bowel sounds, soft. ABSENT: distended, guarding, mass, organolmegaly, rebound, tenderness Rectal exam: PRESENT: deferred Gentrourinary exam: PRESENT: indwelling catheter Musculoskeletal exam: PRESENT: normal inspection Skin exam: PRESENT: dry, warm Results Laboratory Results: 09/22/16 03:56 09/22/16 03:56 09/21/16 09/21/16 09/21/16 09:50 09:55 14:13 WBC RBC Hgb Hct MCV MCH MCHC RDW Plt Count Seg Neutrophils % Lymphocytes % Monocytes % Eosinophils % Basophils % Absolute Neutrophils Absolute Lymphocytes Absolute Monocytes Absolute Eosinophils Absolute Basophils Carbonic Acid 1.46 H 1.54 H HCO3/H2CO3 Ratio 19:1 18:1 ABG pH 7.38 7.37 ABG pCO2 48.6 H 51.1 H ABG pO2 72.8 L 83.3 ABG HCO3 28.2 H 29.1 H ABG O2 Saturation 94.3 95.9 ABG Base Excess 2.5 3.2 FiO2 60% 50% Sodium Potassium Chloride Carbon Dioxide Anion Gap BUN Creatinine Est GFR ( Amer) Est GFR (Non-Af Amer) Glucose Calcium Phosphorus Magnesium Total Bilirubin AST ALT Alkaline Phosphatase Total Protein Albumin Urine Color YELLOW Urine Appearance TURBID Urine pH 5.0 Ur Specific [place] 1.017 Urine Protein NEGATIVE Urine Glucose (UA) >=500 H Urine Ketones TRACE H Urine Blood NEGATIVE Urine Nitrite NEGATIVE Ur Leukocyte Esterase NEGATIVE 09/22/16 09/22/16 09/22/16 03:56 03:56 06:30 WBC 14.7 H RBC 3.17 L Hgb 9.0 L Hct 28.5 L MCV 90 MCH 28.5 MCHC 31.7 L RDW 13.5 Plt Count 226 Seg Neutrophils % 90.0 H Lymphocytes % 5.1 L Monocytes % 4.8 Eosinophils % 0.0 Basophils % 0.1 Absolute Neutrophils 13.2 H Absolute Lymphocytes 0.7 Absolute Monocytes 0.7 Absolute Eosinophils 0.0 Absolute Basophils 0.0 Carbonic Acid 1.22 HCO3/H2CO3 Ratio 22:1 ABG pH 7.44 ABG pCO2 40.5 ABG pO2 76.2 L ABG HCO3 27.1 H ABG O2 Saturation 95.7 ABG Base Excess 2.8 FiO2 40% Sodium 134.8 L Potassium 4.5 Chloride 102 Carbon Dioxide 25 Anion Gap 8 BUN 13 Creatinine 0.59 Est GFR ( Amer) > 60 Est GFR (Non-Af Amer) > 60 Glucose 334 H Calcium 7.8 L Phosphorus 4.1 Magnesium 2.0 Total Bilirubin 0.7 AST 24 ALT 28 Alkaline Phosphatase 61 Total Protein 5.5 L Albumin 2.8 L Urine Color Urine Appearance Urine pH Ur Specific [place] Urine Protein Urine Glucose (UA) Urine Ketones Urine Blood Urine Nitrite Ur Leukocyte Esterase 09/22/16 03:56 Troponin I < 0.012 Impressions: KUB X-Ray 09/21/16 08:01 IMPRESSION: 1. NG tube placement as described. 2. Possible left lower lobe pneumonia versus atelectasis. Chest X-Ray 09/22/16 06:00 IMPRESSION: No significant interval change. Assessment & Plan - Diagnosis (1) Anaphylaxis Qualifiers: Encounter type: initial encounter Qualified Code(s): T78.2XXA - Anaphylactic shock, unspecified, initial encounter Is this a current diagnosis for this admission?: Yes (2) COPD (chronic obstructive pulmonary disease) Qualifiers: COPD type: unspecified COPD Qualified Code(s): J44.9 - Chronic obstructive pulmonary disease, unspecified Is this a current diagnosis for this admission?: Yes - Time Critical Time spent with patient: 25-34 minutes
[2016-09-24] MEDS ORDERED: OXYCODONE HCL IR 5 MG TABLET PO PRN (15:20)
[2016-09-24] MEDS ORDERED: INSULIN ASPART 30 UNIT SUBCUT SCH (16:00)
--- NOTE | 2016-09-24 16:19 | PROGRESS NOTE E ---
Progress Note NAME: SHANAE TSANG : 1955 AGE: 60Y DATE: 09/24/2016 ROOM: 612 SUBJECTIVE: The patient is currently sitting up in bed. The patient has been seen twice today on rounds. The patient was successfully extubated today and is maintaining his oxygen saturation on 2 L nasal cannula. Patient has passed bedside swallow evaluation and diet is being advanced. The patient had no reported episode of vomiting nor diarrhea, and the patient did not voice any concerns at this time. BRIEF HISTORY: The patient is a 60-year-old -[place] male with a past medical history of recent left knee replacement. The patient presented to the emergency department with significant angioedema to the point that he was actually intubated. The patient did have findings consistent of aspiration on imaging, suspicious of aspiration pneumonia. This has been effectively and responsively treated at this time. The patient has been extubated today. The patient has been seen by Orthopedics in regards to his knee. He has been seen also by Physical Therapy. The patient does not voice any other concerns. REVIEW OF SYSTEMS: Rest of the review of systems negative. MEDICATIONS: Have been reviewed. OBJECTIVE: GENERAL: The patient is a 60-year-old -[place]azi male who on initial assessment was intubated, sedated, ventilated. He did not appear to be in any acute distress. VITAL SIGNS: Temperature 98.8, pulse 72, respirations 18, blood pressure 139/84, oxygen saturation is 95% on 2.5 L nasal cannula. SKIN: Warm and dry. No rash. He is not diaphoretic. HEENT: ET tube in place. Buccal edema has resolved. There is no JVP. CARDIOVASCULAR: Heart is regular with no murmur or rub. CHEST: Diminished, mechanical, unlabored. PSYCHIATRIC: Unable to fully assess. GENITOURINARY: [place] is draining clear yellow urine. ABDOMEN: Soft, nontender, nondistended. EXTREMITIES: No clubbing or cyanosis. Nonpitting edema noted to the left lower extremity. Incision appears dry and intact. DIAGNOSTICS: Lab values are as follows: Hematology obtained on 09/24/2016: WBCs are 15.0, hemoglobin is 9.5, hematocrit is 30.5, platelet count is 272,000. Chemistry obtained on 09/24/2016: Sodium is 139, potassium 4.4, chloride is 105, carbon dioxide 25, BUN 21, creatinine is 0.66, glucose 297, calcium is 7.6, magnesium is 2.4, bilirubin 0.7, AST 14, ALT is 29, alk phos 55, total protein 5.5, albumin 2.8. Blood cultures obtained on 09/21/2016 reveal no growth. Sputum culture obtained on 09/21/2016 reveals E. coli. IMPRESSION AND PLAN: 1. ANAPHYLAXIS WITH ANGIOEDEMA. The patient appears to be resolved. Will discontinue steroids. They have already been decreased. Overall appears much improved. Continue H1 and H2 receptor blockers and follow. Have listed LISINOPRIL as an allergy. 2. ASPIRATION PNEUMONIA WITH E. COLI. Will continue Zosyn for now. Vancomycin has already been discontinued. 3. ACUTE RESPIRATORY FAILURE WITH HYPOXIA SECONDARY TO NUMBERS 1 AND 2. Overall appears improved. Will add pulmonary toilet and do appreciate Pulmonology's input with this. 4. DIABETES MELLITUS TYPE 2. Glucoses have been elevated. Will resume home basal insulin. This will improve now that patient will not be getting steroids. 5. GASTROESOPHAGEAL REFLUX DISEASE. Patient is on PPI. 6. PULMONARY EMBOLISM. Will continue Eliquis. 7. HEPATITIS C. The patient is naive to treatment. 8. HYPERTENSION. Blood pressures have been in a decent range. 9. CHRONIC OBSTRUCTIVE PULMONARY DISEASE. Will continue p.r.n. nebulizers. 10. PSEUDOHYPONATREMIA. This was due to glucose. 11. OBESITY. 12. NUTRITION. The patient's diet will be advanced to a diabetic diet. DISPOSITION: The patient is a FULL CODE. Pending patient's symptomatology and diagnostic findings, will reevaluate as needed. The patient can be downgraded to an [facility] bed. Time spent on this critical care visit including assessment, plan, physical examination, patient education, and specialty collaboration is 35 minutes. DICTATING PHYSICIAN: FRANCISCO JAVIER SMITH NP [id number] PHY#: [id number] ID: [id number] JOB#: [id number] ACCT: [id number] cc: >
[2016-09-24] MEDS: METFORMIN HCL 500 MG TABLET PO SCH (17:10)
[2016-09-24] MEDS: INSULIN LISPRO 100 UNIT/ML 3 ML VIAL SUBCUT SCH (17:12)
--- NOTE | 2016-09-24 18:36 | PDOC PROGRESS REPORT ---
Subjective Progress Note for:: 09/23/16 Subjective:: Intubated and sedated unchanged Physical Exam Vital Signs: Temp Pulse Resp BP Pulse Ox 97.5 F 73 18 110/68 100 09/23/16 07:53 09/23/16 08:12 09/23/16 07:53 09/23/16 07:53 09/23/16 07:53 Intake & Output 09/22/16 09/23/16 09/24/16 06:59 06:59 06:59 Intake Total 4229 4316 Output Total 3520 4350 200 Balance 704 -34 -200 Weight 140.4 kg 143.3 kg General appearance: PRESENT: no acute distress, disheveled, obese, well- developed Head exam: PRESENT: atraumatic, normocephalic Eye exam: PRESENT: conjunctiva pale Mouth exam: PRESENT: dry mucosa, neck supple, other - ET tube in place, facial swelling oropharynx dry, tongue protruding from oropharynx Neck exam: ABSENT: carotid bruit, JVD, lymphadenopathy, thyromegaly Respiratory exam: PRESENT: decreased breath sounds, prolonged expiratory phas, rhonchi, symmetrical, unlabored Cardiovascular exam: PRESENT: RRR, +S1, +S2 Pulses: PRESENT: normal radial pulses GI/Abdominal exam: PRESENT: normal bowel sounds, soft. ABSENT: distended, guarding, mass, organolmegaly, rebound, tenderness Rectal exam: PRESENT: deferred Gentrourinary exam: PRESENT: indwelling catheter Musculoskeletal exam: PRESENT: normal inspection Skin exam: PRESENT: dry, warm Results Laboratory Results: 09/23/16 03:50 09/23/16 03:50 09/22/16 09/23/16 09/23/16 09:33 03:50 03:50 WBC 16.7 H RBC 3.16 L Hgb 9.0 L Hct 28.2 L MCV 89 MCH 28.4 MCHC 31.9 L RDW 14.1 H Plt Count 244 Carbonic Acid HCO3/H2CO3 Ratio ABG pH ABG pCO2 ABG pO2 ABG HCO3 ABG O2 Saturation ABG Base Excess FiO2 Sodium 136.8 L Potassium 4.4 Chloride 103 Carbon Dioxide 26 Anion Gap 8 BUN 16 Creatinine 0.58 0.59 Est GFR ( Amer) > 60 > 60 Est GFR (Non-Af Amer) > 60 > 60 Glucose 339 H Calcium 7.5 L Magnesium 2.2 09/23/16 04:45 WBC RBC Hgb Hct MCV MCH MCHC RDW Plt Count Carbonic Acid 1.21 HCO3/H2CO3 Ratio 20:1 ABG pH 7.41 ABG pCO2 40.1 ABG pO2 45.9 L ABG HCO3 24.8 ABG O2 Saturation 82.4 L ABG Base Excess 0.2 FiO2 40% Sodium Potassium Chloride Carbon Dioxide Anion Gap BUN Creatinine Est GFR ( Amer) Est GFR (Non-Af Amer) Glucose Calcium Magnesium 09/21/16 10:10 Tracheal Aspirate Gram Stain - Final 09/22/16 03:56 Troponin I < 0.012 Impressions: KUB X-Ray 09/21/16 08:01 IMPRESSION: 1. NG tube placement as described. 2. Possible left lower lobe pneumonia versus atelectasis. Chest X-Ray 09/23/16 06:00 IMPRESSION: Cardiomegaly. Subsegmental atelectasis at the right lung base. Small left-sided pleural effusion and left basilar airspace opacity, may represent atelectasis or pneumonia. Assessment & Plan - Diagnosis (1) Anaphylaxis Qualifiers: Encounter type: initial encounter Qualified Code(s): T78.2XXA - Anaphylactic shock, unspecified, initial encounter Is this a current diagnosis for this admission?: Yes (2) COPD (chronic obstructive pulmonary disease) Qualifiers: COPD type: unspecified COPD Qualified Code(s): J44.9 - Chronic obstructive pulmonary disease, unspecified Is this a current diagnosis for this admission?: Yes (3) Post op infection Qualifiers: Encounter type: initial encounter Qualified Code(s): T81.4XXA - Infection following a procedure, initial encounter Is this a current diagnosis for this admission?: Yes - Time Critical Time spent with patient: 25-34 minutes
--- NOTE | 2016-09-24 18:43 | PDOC PROGRESS REPORT ---
Subjective Progress Note for:: 09/24/16 Subjective:: Intubated andResponding to commands Physical Exam Vital Signs: Temp Pulse Resp BP Pulse Ox 98.4 F 69 18 143/88 H 95 09/24/16 07:53 09/24/16 07:53 09/24/16 07:53 09/24/16 07:53 09/24/16 07:53 Intake & Output 09/23/16 09/24/16 09/25/16 06:59 06:59 06:59 Intake Total 4316 2584 Output Total 4357 2785 100 Balance -34 -1131 -100 Weight 143.3 kg 141.6 kg General appearance: PRESENT: no acute distress, disheveled, obese, well- developed Head exam: PRESENT: atraumatic, normocephalic Eye exam: PRESENT: conjunctiva pale, EOMI Mouth exam: PRESENT: dry mucosa, neck supple, other - ET tube in place Neck exam: ABSENT: carotid bruit, JVD, lymphadenopathy, thyromegaly Respiratory exam: PRESENT: decreased breath sounds, prolonged expiratory phas, rhonchi, unlabored Cardiovascular exam: PRESENT: RRR, +S1, +S2 Pulses: PRESENT: normal radial pulses GI/Abdominal exam: PRESENT: normal bowel sounds, soft. ABSENT: distended, guarding, mass, organolmegaly, rebound, tenderness Rectal exam: PRESENT: deferred Gentrourinary exam: PRESENT: indwelling catheter Musculoskeletal exam: PRESENT: normal inspection Neurological exam: PRESENT: awake Skin exam: PRESENT: dry, warm Results Laboratory Results: 09/24/16 03:37 09/24/16 03:37 09/23/16 09/23/16 09/24/16 09:30 09:30 03:37 WBC 16.2 H 15.0 H RBC 3.38 L 3.38 L Hgb 9.7 L 9.5 L Hct 30.4 L 30.5 L MCV 90 90 MCH 28.6 28.2 MCHC 31.8 L 31.3 L RDW 14.0 14.0 Plt Count 257 272 Seg Neutrophils % Not Reportable Not Reportable Lymphocytes % Not Reportable Not Reportable Monocytes % Not Reportable Not Reportable Eosinophils % Not Reportable Not Reportable Basophils % Not Reportable Not Reportable Absolute Neutrophils Not Reportable Not Reportable Absolute Lymphocytes Not Reportable Not Reportable Absolute Monocytes Not Reportable Not Reportable Absolute Eosinophils Not Reportable Not Reportable Absolute Basophils Not Reportable Not Reportable Carbonic Acid HCO3/H2CO3 Ratio ABG pH ABG pCO2 ABG pO2 ABG HCO3 ABG O2 Saturation ABG Base Excess FiO2 Sodium Potassium Chloride Carbon Dioxide Anion Gap BUN Creatinine Est GFR ( Amer) Est GFR (Non-Af Amer) Glucose Calcium Phosphorus 4.3 Magnesium Total Bilirubin AST ALT Alkaline Phosphatase Total Protein Albumin 3.0 L 09/24/16 09/24/16 03:37 04:10 WBC RBC Hgb Hct MCV MCH MCHC RDW Plt Count Seg Neutrophils % Lymphocytes % Monocytes % Eosinophils % Basophils % Absolute Neutrophils Absolute Lymphocytes Absolute Monocytes Absolute Eosinophils Absolute Basophils Carbonic Acid 1.20 HCO3/H2CO3 Ratio 23:1 ABG pH 7.46 H ABG pCO2 40.0 ABG pO2 72.4 L ABG HCO3 28.1 H ABG O2 Saturation 95.4 ABG Base Excess 4.0 FiO2 40% Sodium 139.7 Potassium 4.4 Chloride 105 Carbon Dioxide 25 Anion Gap 10 BUN 21 H Creatinine 0.66 Est GFR ( Amer) > 60 Est GFR (Non-Af Amer) > 60 Glucose 316 H Calcium 7.6 L Phosphorus Magnesium 2.4 H Total Bilirubin 0.7 AST 14 L ALT 29 Alkaline Phosphatase 55 Total Protein 5.5 L Albumin 2.8 L 09/21/16 09:55 Catheterized Urine Urine Culture - Final NO GROWTH 2 DAYS 09/21/16 10:10 Tracheal Aspirate Gram Stain - Final 09/21/16 10:10 Tracheal Aspirate Sputum Culture - Final Escherichia Coli Normal Katya 09/22/16 09/23/16 03:56 09:30 Troponin I < 0.012 NT-Pro-B Natriuret Pep 338 Impressions: KUB X-Ray 09/21/16 08:01 IMPRESSION: 1. NG tube placement as described. 2. Possible left lower lobe pneumonia versus atelectasis. Chest X-Ray 09/24/16 06:00 IMPRESSION: No significant interval change. Assessment & Plan - Diagnosis (1) Anaphylaxis Qualifiers: Encounter type: initial encounter Qualified Code(s): T78.2XXA - Anaphylactic shock, unspecified, initial encounter Is this a current diagnosis for this admission?: YesPlan: stable (2) COPD (chronic obstructive pulmonary disease) Qualifiers: COPD type: unspecified COPD Qualified Code(s): J44.9 - Chronic obstructive pulmonary disease, unspecified Is this a current diagnosis for this admission?: YesPlan: Bronchodilator therapy (3) Acute respiratory failure Qualifiers: Respiratory failure complication: hypoxia and hypercapnia Qualified Code(s): J96.01 - Acute respiratory failure with hypoxia Is this a current diagnosis for this admission?: Yes - Time Critical Time spent with patient: 35 or more minutes - 55 min extubation
[2016-09-24] MEDS: IPRATROPIUM/ALBUTEROL 0.5-2.5 MG/3 ML AMPUL NEB PRN (20:13)
[2016-09-24] MEDS: DOXAZOSIN MESYLATE 2 MG TABLET PO SCH (22:15)
[2016-09-24] MEDS: GABAPENTIN 100 MG CAPSULE PO SCH (22:15)
[2016-09-24] MEDS: FAMOTIDINE 20 MG TABLET PO SCH (22:15)
[2016-09-24] MEDS: AMITRIPTYLINE HCL 75 MG TABLET PO SCH (22:15)
[2016-09-24] MEDS: LORATADINE 10 MG TABLET PO SCH (22:15)
[2016-09-24] MEDS: BUDESONIDE/FORMOTEROL 160-4.5 MCG 60 PUFF/6 GM MDI IH SCH (22:16)
[2016-09-24] MEDS: FLUTICASONE NASAL SPRAY 50 MCG/SPRY 120 SPRAY/16 GM NAREB SCH (22:16)
[2016-09-25] MEDS: DIPHENHYDRAMINE HCL 50 MG/ML VIAL IV SCH ×5 (00:46→23:24)
[2016-09-25] MEDS: PIPERACILLIN SODIUM/TAZOBACTAM 3.375 GM in NORMAL SALINE 100 ML IV SCH ×2 (01:02→05:10)
[2016-09-25] MEDS: GABAPENTIN 100 MG CAPSULE PO SCH ×3 (05:10→21:48)
[2016-09-25] MEDS: LANSOPRAZOLE 30 MG TAB.RAP.DR PO SCH (06:44)
[2016-09-25] MEDS: IPRATROPIUM/ALBUTEROL 0.5-2.5 MG/3 ML AMPUL NEB PRN ×2 (07:54→19:56)
[2016-09-25] MEDS: TOBRAMYCIN SULFATE NEB 40 MG/ML 30 ML NEB SCH ×2 (07:54→19:56)
[2016-09-25] MEDS ORDERED: INSULIN ASPART 36 UNIT SUBCUT SCH (08:00)
[2016-09-25] MEDS: AMLODIPINE BESYLATE 10 MG TABLET PO SCH (08:39)
[2016-09-25] MEDS: ASPIRIN 81 MG TABLET, ENT COATED PO SCH (08:39)
[2016-09-25] MEDS: TIOTROPIUM BROMIDE DPI 5 CAP/KIT (18 MCG/CAP) IH SCH (08:39)
[2016-09-25] MEDS: INSULIN LISPRO 100 UNIT/ML 3 ML VIAL SUBCUT SCH ×2 (08:39→17:02)
[2016-09-25] MEDS: METFORMIN HCL 500 MG TABLET PO SCH ×2 (08:39→17:59)
[2016-09-25] MEDS ORDERED: NAPROXEN 250 MG TABLET PO PRN (09:01)
[2016-09-25] MEDS ORDERED: (PENDING PHARMACY ID) (Lactulose [Constulose 10 Gm/15 Ml Oral Solution] 15 ML) PO SCH (10:00)
[2016-09-25] MEDS: FERROUS SULFATE 325 MG TABLET PO SCH (11:09)
[2016-09-25] MEDS: LACTULOSE SYRUP 20 GM/30 ML UDCUP PO SCH (11:10)
[2016-09-25] MEDS: FAMOTIDINE 20 MG TABLET PO SCH ×2 (11:10→21:47)
[2016-09-25] MEDS: METOPROLOL TARTRATE 25 MG TABLET PO SCH ×2 (11:11→21:47)
[2016-09-25] MEDS: LEVOFLOXACIN 750 MG TABLET PO SCH (11:12)
[2016-09-25] MEDS: APIXABAN 5 MG TABLET PO SCH ×2 (11:12→18:03)
[2016-09-25] MEDS: FLUTICASONE NASAL SPRAY 50 MCG/SPRY 120 SPRAY/16 GM NAREB SCH ×2 (11:13→21:46)
[2016-09-25] MEDS: BUDESONIDE/FORMOTEROL 160-4.5 MCG 60 PUFF/6 GM MDI IH SCH ×2 (11:14→21:46)
[2016-09-25] MEDS ORDERED: MAG HYDROX/AL HYDROX/SIMETH SUSP 30 ML UDCUP PO ONE (13:00)
[2016-09-25] MEDS ORDERED: LIDOCAINE 2% VISCOUS SOLN 20 ML UDCUP PO ONE (13:00)
[2016-09-25] MEDS ORDERED: METOCLOPRAMIDE HCL ORAL SOLN 10 MG/10 ML UDCUP PO ONE (13:00)
--- NOTE | 2016-09-25 15:16 | PDOC PROGRESS REPORT ---
Subjective Progress Note for:: 09/25/16 Subjective:: Patient was seen on morning rounds. He is resting comfortably in bed at present time. He denies any shortness of breath, chest pain or dyspnea. He states he does have a productive cough thick white mucus. He denies any nausea , vomiting, or abdominal pain. He states he has mild incisional knee pain on the left. He denies any fever or chills. Rest of review of all systems is negative. Physical Exam Vital Signs: Temp Pulse Resp BP Pulse Ox 98.0 F 122 H 19 142/89 H 93 09/25/16 11:21 09/25/16 11:21 09/25/16 11:21 09/25/16 11:21 09/25/16 11:21 Intake & Output 09/24/16 09/25/16 09/26/16 06:59 06:59 06:59 Intake Total 2584 2056 400 Output Total 3715 1746 440 Balance -1131 310 -40 Weight 141.6 kg 138.7 kg General appearance: PRESENT: no acute distress, morbidly obese, well-developed, well-nourished Head exam: PRESENT: atraumatic, normocephalic Eye exam: PRESENT: conjunctiva pink, EOMI, PERRLA. ABSENT: scleral icterus Ear exam: PRESENT: normal external ear exam Mouth exam: PRESENT: moist, tongue midline Neck exam: ABSENT: carotid bruit, JVD, lymphadenopathy, thyromegaly Respiratory exam: PRESENT: clear to auscultation angelina, decreased breath sounds - left base. ABSENT: rales, rhonchi, wheezes Cardiovascular exam: PRESENT: RRR. ABSENT: diastolic murmur, rubs, systolic murmur Pulses: PRESENT: normal carotid pulses, normal radial pulses Vascular exam: PRESENT: normal capillary refill GI/Abdominal exam: PRESENT: normal bowel sounds, soft. ABSENT: distended, guarding, mass, organolmegaly, rebound, tenderness Rectal exam: PRESENT: deferred Extremities exam: PRESENT: full ROM. ABSENT: calf tenderness, clubbing, pedal edema Musculoskeletal exam: PRESENT: tenderness, other - mild swelling of left knee Neurological exam: PRESENT: alert, awake, oriented to person, oriented to place , oriented to time, oriented to situation, CN II-XII grossly intact. ABSENT: motor sensory deficit Psychiatric exam: PRESENT: appropriate affect, normal mood. ABSENT: homicidal ideation, suicidal ideation Skin exam: PRESENT: dry, intact, warm, other - ever intact to left knee incision. ABSENT: cyanosis, rash Results Laboratory Results: 09/24/16 03:37 09/24/16 03:37 09/21/16 16:30 Knee - Left Gram Stain - Final 09/21/16 16:30 Knee - Left Wound Culture - Final Skin Katya Staphylococcus Lugdunensis No Anaerobic Organisms 09/22/16 09/23/16 03:56 09:30 Troponin I < 0.012 NT-Pro-B Natriuret Pep 338 Impressions: KUB X-Ray 09/21/16 08:01 IMPRESSION: 1. NG tube placement as described. 2. Possible left lower lobe pneumonia versus atelectasis. Chest X-Ray 09/24/16 06:00 IMPRESSION: No significant interval change. Assessment & Plan - Diagnosis (1) Anaphylaxis Qualifiers: Encounter type: initial encounter Qualified Code(s): T78.2XXA - Anaphylactic shock, unspecified, initial encounter Is this a current diagnosis for this admission?: Yes (2) Acute respiratory failure Qualifiers: Respiratory failure complication: hypoxia and hypercapnia Qualified Code(s): J96.01 - Acute respiratory failure with hypoxia Is this a current diagnosis for this admission?: YesPlan: Secondary to angioedema of the tongue. 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 (5) COPD (chronic obstructive pulmonary disease) Qualifiers: COPD type: unspecified COPD Qualified Code(s): J44.9 - Chronic obstructive pulmonary disease, unspecified Is this a current diagnosis for this admission?: YesPlan: Nebulizer treatments. Sputum sample will be sent for Gram stain and culture (6) Left lower lobe pneumonia Qualifiers: Aspiration pneumonia type: unspecified Qualified Code(s): J69.0 - Pneumonitis due to inhalation of food and vomit Is this a current diagnosis for this admission?: YesPlan: Patient will be placed on IV broad spectrum antibiotics, cultures of sputum and blood will be obtained (7) Gastroesophageal reflux disease Qualifiers: Esophagitis presence: esophagitis presence not specified Qualified Code (s): K21.9 - Gastro-esophageal reflux disease without esophagitis Is this a current diagnosis for this admission?: YesPlan: Continue H2 blockers and PPI. (8) Pulmonary embolism Qualifiers: Chronicity: unspecified Acute cor pulmonale presence: without acute cor pulmonale Is this a current diagnosis for this admission?: YesPlan: Patient was on Eliquis prior to intubation. Will cover with Lovenox. (9) Sleep apnea Is this a current diagnosis for this admission?: YesPlan: Not presently initially while patient is on ventilator patient will only CPAP at at bedtime once he is extubated. (10) Hepatitis C Qualifiers: Viral hepatitis chronicity: chronic Hepatic coma status: without hepatic coma Qualified Code(s): B18.2 - Chronic viral hepatitis C Is this a current diagnosis for this admission?: Yes (11) Hypertension Qualifiers: Hypertension type: essential hypertension Qualified Code(s): I10 - Essential (primary) hypertension Is this a current diagnosis for this admission?: YesPlan: Patient is presently normotensive we will hold blood pressure medications and reinitiate as needed. - Time Time Spent with patient: 25-34 minutes Medications reviewed and adjusted accordingly: Yes Anticipated discharge: Home with Homehealth
[2016-09-25] MEDS: PANTOPRAZOLE SODIUM 40 MG VIAL IV SCH (21:45)
[2016-09-25] MEDS: DOXAZOSIN MESYLATE 2 MG TABLET PO SCH (21:46)
[2016-09-25] MEDS: LORATADINE 10 MG TABLET PO SCH (21:47)
[2016-09-25] MEDS: AMITRIPTYLINE HCL 75 MG TABLET PO SCH (21:47)
[2016-09-25] MEDS ORDERED: INSULIN GLARGINE,HUM.REC.ANLOG 1,000 UNIT/10 ML UNIT SUBCUT ONE (22:54)
[2016-09-25] MEDS: INSULIN GLARGINE,HUM.REC.ANLOG 1,000 UNIT/10 ML UNIT SUBCUT SCH (22:54)
[2016-09-26 05:08] LABS: ABSOLUTE EOSINOPHILS # (AUTO) 0.1 10^3/uL (0.0-0.6); ABSOLUTE LYMPHOCYTES (AUTO) 1.9 10^3/uL (0.5-4.7); ABSOLUTE NEUT (AUTO) 9.1 10^3/uL (1.7-8.2); BASOPHILS % (AUTO) 0.1 % (0-2); EOSINOPHILS % (AUTO) 1.2 % (0-6); HEMATOCRIT 33.6 % (37.9-51.0); HEMOGLOBIN 10.6 g/dL (13.5-17.0); HGB HCT DIFFERENCE -1.8; LYMPHOCYTES % (AUTO) 15.4 % (13-45); MEAN CORPUSCULAR HEMOGLOBIN 28.3 pg (27.0-33.4); MEAN CORPUSCULAR HGB CONC 31.7 g/dL (32.0-36.0); MEAN CORPUSCULAR VOLUME 89 fl (80-97); MONOCYTES % (AUTO) 8.3 % (3-13); RED BLOOD COUNT 3.76 10^6/uL (4.35-5.55); RED CELL DISTRIBUTION WIDTH 14.1 % (11.5-14.0); WHITE BLOOD COUNT 12.1 10^3/uL (4.0-10.5)
[2016-09-26] MEDS: GABAPENTIN 100 MG CAPSULE PO SCH (05:15)
[2016-09-26] MEDS: DIPHENHYDRAMINE HCL 50 MG/ML VIAL IV SCH ×2 (05:15→11:08)
--- NOTE | 2016-09-26 08:02 | PDOC PROGRESS REPORT ---
Subjective Progress Note for:: 09/26/16 Subjective:: Patient without new complaints today. Physical Exam Vital Signs: Temp Pulse Resp BP Pulse Ox 37.1 C 103 H 20 152/102 H 100 09/26/16 05:08 09/26/16 07:00 09/26/16 05:08 09/26/16 05:08 09/26/16 05:08 Intake & Output 09/25/16 09/26/16 09/27/16 06:59 06:59 06:59 Intake Total 2050 1829 Output Total 4732 3490 Balance 310 -1661 Weight 138.7 kg 138.5 kg General appearance: PRESENT: no acute distress Head exam: PRESENT: normocephalic Respiratory exam: PRESENT: unlabored Cardiovascular exam: PRESENT: RRR Extremities exam: PRESENT: other - Left knee incision is clean dry and intact with ever in place. Results Laboratory Results: 09/26/16 03:58 09/24/16 03:37 09/26/16 03:58 WBC 12.1 H RBC 3.76 L Hgb 10.6 L Hct 33.6 L MCV 89 MCH 28.3 MCHC 31.7 L RDW 14.1 H Plt Count 253 Seg Neutrophils % 75.0 Lymphocytes % 15.4 Monocytes % 8.3 Eosinophils % 1.2 Basophils % 0.1 Absolute Neutrophils 9.1 H Absolute Lymphocytes 1.9 Absolute Monocytes 1.0 Absolute Eosinophils 0.1 Absolute Basophils 0.0 09/21/16 16:30 Knee - Left Gram Stain - Final 09/21/16 16:30 Knee - Left Wound Culture - Final Skin Katya Staphylococcus [place]ensis No Anaerobic Organisms 09/22/16 09/23/16 03:56 09:30 Troponin I < 0.012 NT-Pro-B Natriuret Pep 338 Impressions: KUB X-Ray 09/21/16 08:01 IMPRESSION: 1. NG tube placement as described. 2. Possible left lower lobe pneumonia versus atelectasis. Chest X-Ray 09/24/16 06:00 IMPRESSION: No significant interval change. Assessment & Plan - Diagnosis (1) Arthritis of knee, left Is this a current diagnosis for this admission?: YesPlan: Making progress with physical therapy now with a slight setback. PDX standpoint the patient can be discharged home with home health nursing, home health physical therapy, he probably Cesar has a wheeled walker and a bedside commode. Follow-up can be with Dr. Peña in the [facility] for surgery in 1 week for staple removal. - Time Time Spent with patient: 15-24 minutes Critical Time spent with patient: 15-24 minutes Anticipated discharge: Home with Homehealth Within: within 24 hours
[2016-09-26] MEDS ORDERED: TRAMADOL HCL 50 MG TABLET PO PRN (08:16)
[2016-09-26] MEDS: TOBRAMYCIN SULFATE NEB 40 MG/ML 30 ML NEB SCH (08:22)
[2016-09-26] MEDS: INSULIN LISPRO 100 UNIT/ML 3 ML VIAL SUBCUT SCH (08:52)
[2016-09-26] MEDS: INSULIN LISPRO 100 UNIT/ML 3 ML VIAL SUBCUT PRN (08:53)
[2016-09-26] MEDS: ASPIRIN 81 MG TABLET, ENT COATED PO SCH (08:54)
[2016-09-26] MEDS: AMLODIPINE BESYLATE 10 MG TABLET PO SCH (08:54)
[2016-09-26] MEDS: METFORMIN HCL 500 MG TABLET PO SCH (08:55)
[2016-09-26] MEDS: TIOTROPIUM BROMIDE DPI 5 CAP/KIT (18 MCG/CAP) IH SCH (08:55)
[2016-09-26] MEDS: LANSOPRAZOLE 30 MG TAB.RAP.DR PO SCH (08:55)
[2016-09-26] MEDS: FAMOTIDINE 20 MG TABLET PO SCH (09:44)
[2016-09-26] MEDS: APIXABAN 5 MG TABLET PO SCH (09:44)
[2016-09-26] MEDS: LEVOFLOXACIN 750 MG TABLET PO SCH (09:44)
[2016-09-26] MEDS: FERROUS SULFATE 325 MG TABLET PO SCH (09:44)
[2016-09-26] MEDS: BUDESONIDE/FORMOTEROL 160-4.5 MCG 60 PUFF/6 GM MDI IH SCH (09:45)
[2016-09-26] MEDS: FLUTICASONE NASAL SPRAY 50 MCG/SPRY 120 SPRAY/16 GM NAREB SCH (09:45)
[2016-09-26] MEDS: PANTOPRAZOLE SODIUM 40 MG VIAL IV SCH (09:47)
[2016-09-26] MEDS: LACTULOSE SYRUP 20 GM/30 ML UDCUP PO SCH (09:47)
[2016-09-26 09:53] VITALS: BP 141/86
[2016-09-26] MEDS ORDERED: METOPROLOL TARTRATE 25 MG TABLET PO SCH (10:00)
--- NOTE | 2016-09-26 12:36 | PDOC DISCHARGE SUMMARY ---
General - Admit/Disc Date/PCP Admission Date/Primary Care Provider: 09/21/16 07:59 Discharge Date: 09/26/16 - Discharge Diagnosis (1) Anaphylaxis Is this a current diagnosis for this admission?: YesSummary: Patient was treated with IV steroids, Benadryl and Pepcid. He required intubation due to severe angioedema of the tongue. Pulmonary was consulted. Dr. Humphries's outpatient consult. Patient was able to be extubated 09/24/2016. Angioedema secondary to Percocet (2) Acute respiratory failure Is this a current diagnosis for this admission?: YesSummary: Resolved (3) Post op infection Is this a current diagnosis for this admission?: Yes (4) Type I diabetes mellitus Is this a current diagnosis for this admission?: YesSummary: Continue present insulin doses. (5) COPD (chronic obstructive pulmonary disease) Is this a current diagnosis for this admission?: YesSummary: Continue inhalers. Incentive spirometry and flutter valve at home. (6) Left lower lobe pneumonia Is this a current diagnosis for this admission?: YesSummary: Continue levaquin 750 mg daily for 5 days (7) Gastroesophageal reflux disease Is this a current diagnosis for this admission?: YesSummary: Continue PPI and H2 renetta (8) Pulmonary embolism Is this a current diagnosis for this admission?: YesSummary: Continue eliquis (9) Sleep apnea Is this a current diagnosis for this admission?: YesSummary: CPAP at (10) Hepatitis C Is this a current diagnosis for this admission?: Yes (11) Hypertension Is this a current diagnosis for this admission?: YesSummary: Continue current antihypertensives - Additional Information Resuscitation Status: Full Code Discharge Diet: Diabetic Discharge Activity: Activity As Tolerated, Balance Activity w/Rest, No tub bath Home Medications: Amitriptyline HCl [Elavil 75 mg Tablet] 75 mg PO QHS 09/21/16 Amlodipine Besylate 10 mg PO QAM 09/21/16 Apixaban [Eliquis 5 mg Tablet] 5 mg PO Q12 09/21/16 Aspirin [Ecotrin 81 mg EC Tablet] 81 mg PO QAM 09/21/16 Ferrous Sulfate [Feosol 325 mg Tablet] 325 mg PO DAILY 09/21/16 Gabapentin [Neurontin 100 mg Capsule] 100 mg PO Q8 09/21/16 Hydrochlorothiazide 25 mg PO QAM 09/21/16 Insulin Glargine,Hum.rec.anlog [Lantus] 50 units SQ QHS 09/21/16 Metoprolol Tartrate [Lopressor 25 mg Tablet] 25 mg PO Q12 09/21/16 Omeprazole 40 mg PO QAM 09/21/16 Pravastatin Sodium [Pravachol] 20 mg PO QHS 09/21/16 Ranitidine HCl 150 mg PO QHS 09/21/16 Terazosin HCl 4 mg PO QHS 09/21/16 Tiotropium Neptune [Spiriva Handihaler 18 mcg/dose (30 Dose)] 1 cap IH QAM 09/21 Albuterol Sulfate [Proair HFA] 2 puff IH Q6HP PRN 09/22/16 Budesonide/Formoterol Fumarate [Symbicort HFA 160-4.5 mcg Inhaler 6 gm] 2 puff IH Q12 09/22/16 Fluticasone Propionate [Flonase Nasal Caret 50 Mcg/Caret 16 gm] 1 spray NAREB Q12 09/22/16 Insulin Aspart [Novolog Insulin (Aspart) 100 unit/mL] 30 unit SUBCUT ACSUPPER Insulin Aspart [Novolog Insulin 100 Unit/1 ml 10 ml] 36 unit SUBCUT ACBRKFST Lactulose [Constulose 10 gm/15 mL Oral Solution] 15 ml PO DAILY 09/22/16 Sildenafil Citrate [Viagra] 100 mg PO ASDIR PRN MDD 1 TAB 09/22/16 Acetaminophen [Tylenol 650 mg Supp] 650 mg NJ Q4HP PRN supp.rect 09/26/16 Levofloxacin [Levaquin 750 mg Tablet] 750 mg PO DAILY #5 tablet 09/26/16 Naproxen [Naprosyn 250 mg Tablet] 500 mg PO Q12HP PRN #60 tablet 09/26/16 History of Present Illness Patient complains of: Swollen tongue and difficulty breathing History of Present Illness: SHANAE TSANG is a 60 year old male with past medical history of COPD, essential hypertension, diabetes mellitus type 2 on insulin, GERD, vocal cord polyp, angioedema secondary to Vicodin in 2014, and recent left knee arthroplasty on 09/14/2016. Patient presented to [facility] emergency room this morning with complaint of increasing shortness of breath, wheezing and tongue swelling. He was noted to have progressive angioedema of his tongue and lips with progressive stridor that despite IM epinephrine 3, IV Solu-Medrol and Benadryl required intubation for airway protection. History is obtained from the patient's Babs, the emergency room physician and electronic health record. According to the patient's he had some angioedema on postop day 1, 09/15/2016, which was thought to be secondary to either anesthesia or oxycodone. Oxycodone was stopped and the angioedema resolved. Pain management service was consulted by orthopedic surgery, patient was placed on Percocet and discharged home. Patient's states he also recently began taking Lyrica for neuropathy and also takes lisinopril for his essential hypertension. Patient's also notes his left knee became increasingly swollen and warm to the touch on Wednesday. Patient underwent left total knee arthroplasty by Dr. Marc Peña on 09/14/2016. Patient is referred to the hospitalist service for treatment of his acute anaphylaxis in acute respiratory failure. Hospital Course Hospital Course: Patient was admitted to the intensive care unit. Pulmonary was consulted for ventilator management. Dr. Humphries, saw the patient in consult. The patient was started on IV solumedrol, benadryl and Pepcid for his angioedema. He was noted to have left lower lobe collapse on chest xray. He was started on empiric broad spectrum antibiotics. Blood and sputum cultures were obtained. Sputum grew ecoli. Blood cultures remained negative. He was eventually extubated on . He was transferred to step down [facility]. He began physical therapy. He is now off oxyen, ambulating and pain has been well controlled with naproxen. He will be discharged home today to resume home health and will follow up on Wednesday, for staple removal in Dr Peña's office Physical Exam Vital Signs: Temp Pulse Resp BP Pulse Ox 98.6 F 104 H 18 141/86 H 93 09/26/16 09:50 09/26/16 09:50 09/26/16 09:50 09/26/16 09:50 09/26/16 09:50 Intake & Output 09/25/16 09/26/16 09/27/16 06:59 06:59 06:59 Intake Total 8490 9232 Output Total 0937 2384 Balance 310 -1661 Weight 138.7 kg 138.5 kg General appearance: PRESENT: no acute distress, morbidly obese, well-developed, well-nourished Head exam: PRESENT: atraumatic, normocephalic Eye exam: PRESENT: conjunctiva pink, EOMI, PERRLA. ABSENT: scleral icterus Ear exam: PRESENT: normal external ear exam Mouth exam: PRESENT: moist, tongue midline Neck exam: ABSENT: carotid bruit, JVD, lymphadenopathy, thyromegaly Respiratory exam: PRESENT: clear to auscultation angelina - left base, decreased breath sounds, symmetrical, unlabored Cardiovascular exam: PRESENT: RRR. ABSENT: diastolic murmur, rubs, systolic murmur Pulses: PRESENT: normal dorsalis pedis pul Vascular exam: PRESENT: normal capillary refill GI/Abdominal exam: PRESENT: normal bowel sounds, soft. ABSENT: distended, guarding, mass, organolmegaly, rebound, tenderness Rectal exam: PRESENT: deferred Extremities exam: PRESENT: full ROM. ABSENT: calf tenderness, clubbing, pedal edema Neurological exam: PRESENT: alert - Right, awake, oriented to person, oriented to place, oriented to time, oriented to situation, CN II-XII grossly intact. ABSENT: motor sensory deficit Psychiatric exam: PRESENT: appropriate affect, normal mood. ABSENT: homicidal ideation, suicidal ideation Skin exam: PRESENT: other - knee incision with intact ever mild swelling of left knee Results Laboratory Results: 09/26/16 03:58 09/24/16 03:37 09/26/16 03:58 WBC 12.1 H RBC 3.76 L Hgb 10.6 L Hct 33.6 L MCV 89 MCH 28.3 MCHC 31.7 L RDW 14.1 H Plt Count 253 Seg Neutrophils % 75.0 Lymphocytes % 15.4 Monocytes % 8.3 Eosinophils % 1.2 Basophils % 0.1 Absolute Neutrophils 9.1 H Absolute Lymphocytes 1.9 Absolute Monocytes 1.0 Absolute Eosinophils 0.1 Absolute Basophils 0.0 09/21/16 16:30 Knee - Left Gram Stain - Final 09/21/16 16:30 Knee - Left Wound Culture - Final Skin Katya Staphylococcus Lugdunensis No Anaerobic Organisms 09/22/16 09/23/16 03:56 09:30 Troponin I < 0.012 NT-Pro-B Natriuret Pep 338 Impressions: KUB X-Ray 09/21/16 08:01 IMPRESSION: 1. NG tube placement as described. 2. Possible left lower lobe pneumonia versus atelectasis. Chest X-Ray 09/24/16 06:00 IMPRESSION: No significant interval change. Qualifiers PATEINT BEING DISCHARGED WITH ANY OF THE FOLLOWING DIAGNOSIS?: No Plan Discharge Plan: Home with family. Will resume home health Time Spent: Less than 30 Minutes
--- NOTE | 2016-09-27 07:42 | PDOC PROGRESS REPORT ---
Subjective Progress Note for:: 09/25/16 Subjective:: s/p extubation stable Physical Exam Vital Signs: Temp Pulse Resp BP Pulse Ox 98.6 F 104 H 18 141/86 H 93 09/26/16 09:50 09/26/16 09:50 09/26/16 09:50 09/26/16 09:50 09/26/16 09:50 Intake & Output 09/25/16 09/26/16 09/27/16 06:59 06:59 06:59 Intake Total 6235 0189 Output Total 5647 2150 Balance 310 -1661 Weight 138.7 kg 138.5 kg General appearance: PRESENT: no acute distress, cooperative, disheveled, morbidly obese, well-developed Head exam: PRESENT: normocephalic Eye exam: PRESENT: conjunctiva pale, EOMI Mouth exam: PRESENT: moist, neck supple, tongue midline Neck exam: ABSENT: carotid bruit, JVD, lymphadenopathy, thyromegaly Respiratory exam: PRESENT: decreased breath sounds, prolonged expiratory phas, rhonchi, symmetrical, unlabored Cardiovascular exam: PRESENT: +S1 Pulses: PRESENT: normal radial pulses GI/Abdominal exam: PRESENT: normal bowel sounds, soft. ABSENT: distended, guarding, mass, organolmegaly, rebound, tenderness Rectal exam: PRESENT: deferred Extremities exam: PRESENT: +1 edema Neurological exam: PRESENT: alert, awake Psychiatric exam: PRESENT: normal mood Skin exam: PRESENT: dry, warm Results Laboratory Results: 09/26/16 03:58 09/24/16 03:37 09/26/16 03:58 WBC 12.1 H RBC 3.76 L Hgb 10.6 L Hct 33.6 L MCV 89 MCH 28.3 MCHC 31.7 L RDW 14.1 H Plt Count 253 Seg Neutrophils % 75.0 Lymphocytes % 15.4 Monocytes % 8.3 Eosinophils % 1.2 Basophils % 0.1 Absolute Neutrophils 9.1 H Absolute Lymphocytes 1.9 Absolute Monocytes 1.0 Absolute Eosinophils 0.1 Absolute Basophils 0.0 09/21/16 16:30 Knee - Left Gram Stain - Final 09/21/16 16:30 Knee - Left Wound Culture - Final Skin Katya Staphylococcus Lugdunensis No Anaerobic Organisms 09/22/16 09/23/16 03:56 09:30 Troponin I < 0.012 NT-Pro-B Natriuret Pep 338 Impressions: KUB X-Ray 09/21/16 08:01 IMPRESSION: 1. NG tube placement as described. 2. Possible left lower lobe pneumonia versus atelectasis. Chest X-Ray 09/24/16 06:00 IMPRESSION: No significant interval change. Assessment & Plan - Diagnosis (1) Anaphylaxis Qualifiers: Encounter type: initial encounter Qualified Code(s): T78.2XXA - Anaphylactic shock, unspecified, initial encounter Is this a current diagnosis for this admission?: YesPlan: resolved (2) COPD (chronic obstructive pulmonary disease) Qualifiers: COPD type: unspecified COPD Qualified Code(s): J44.9 - Chronic obstructive pulmonary disease, unspecified Is this a current diagnosis for this admission?: YesPlan: Bronchodilator therapy as OP (3) Acute respiratory failure Qualifiers: Respiratory failure complication: hypoxia and hypercapnia Qualified Code(s): J96.01 - Acute respiratory failure with hypoxia Is this a current diagnosis for this admission?: No
[2016-09-27] MEDS ORDERED: HYDROCHLOROTHIAZIDE 25 MG TABLET PO SCH (08:00)
== END 2016-09-26 12:26 | disposition home health service (06) | DRG 915 ==
LOC: ER 05:23 → EH 07:59 → UNDOADMIN 08:11 → EH 09:38 → ICU 09:38 → 3N 09-24 18:12
PROVIDERS: ADMIT Family Medicine; ATTEND Family Medicine
PROC: 5A1945Z Respiratory Ventilation, 24-96 Consecutive Hours (ICD-10-PCS; principal; 2016-09-21)
PROC: 0D9670Z Drainage of Stomach with Drainage Device, Via Natural or Artificial Opening (ICD-10-PCS; 2016-09-21)
PROC: 0BH17EZ Insertion of Endotracheal Airway into Trachea, Via Natural or Artificial Opening (ICD-10-PCS; 2016-09-21)
PROC: 3E0F73Z Introduction of Anti-inflammatory into Respiratory Tract, Via Natural or Artificial Opening (ICD-10-PCS; 2016-09-21)
DX: T78.2XXA Anaphylactic shock, unspecified, initial encounter (principal); J15.5 Pneumonia due to Escherichia coli; J69.0 Pneumonitis due to inhalation of food and vomit; J96.01 Acute respiratory failure with hypoxia; J96.02 Acute respiratory failure with hypercapnia; I26.99 Other pulmonary embolism without acute cor pulmonale; J44.0 Chronic obstructive pulmonary disease with (acute) lower respiratory infection; T81.4XXA Infection following a procedure, initial encounter; Z68.41 Body mass index [BMI] 40.0-44.9, adult; T78.3XXA Angioneurotic edema, initial encounter; T39.1X5A Adverse effect of 4-Aminophenol derivatives, initial encounter; Y92.019 Unspecified place in single-family (private) house as the place of occurrence of the external cause; Z78.1 Physical restraint status; K21.9 Gastro-esophageal reflux disease without esophagitis; G47.30 Sleep apnea, unspecified; J38.1 Polyp of vocal cord and larynx; E11.618 Type 2 diabetes mellitus with other diabetic arthropathy; E11.40 Type 2 diabetes mellitus with diabetic neuropathy, unspecified; I48.91 Unspecified atrial fibrillation; I11.0 Hypertensive heart disease with heart failure; I50.9 Heart failure, unspecified; E78.5 Hyperlipidemia, unspecified; M19.90 Unspecified osteoarthritis, unspecified site; B18.2 Chronic viral hepatitis C; E66.01 Morbid (severe) obesity due to excess calories; B96.20 Unspecified Escherichia coli [E. coli] as the cause of diseases classified elsewhere; Z87.11 Personal history of peptic ulcer disease; Z86.711 Personal history of pulmonary embolism; Z79.82 Long term (current) use of aspirin; Z79.4 Long term (current) use of insulin; Z79.899 Other long term (current) drug therapy; Z90.49 Acquired absence of other specified parts of digestive tract; Z86.73 Personal history of transient ischemic attack (TIA), and cerebral infarction without residual deficits; Z96.652 Presence of left artificial knee joint; Z87.891 Personal history of nicotine dependence; Z88.8 Allergy status to other drugs, medicaments and biological substances; Z88.6 Allergy status to analgesic agent; Z82.61 Family history of arthritis; Z82.3 Family history of stroke; Z83.3 Family history of diabetes mellitus; Z82.49 Family history of ischemic heart disease and other diseases of the circulatory system
CPT/HCPCS: 36415; 36600; 71010; 74000; 80048; 80053; 80202; 81001; 82040; 82565; 82607; 82728; 82746; 82803; 82962; 83540; 83550; 83735; 83880; 84100; 84466; 84484; 85025; 85027; 85045; 86850; 86900; 86901; 87040; 87070; 87075; 87077; 87086; 87186; 87205; 93971; 94002; 94003; 94640; 94667; 96374; 96375; 99291; 99292; J0330; J1200; J1650; J1815; J2250; J2543; J2704; J2930; J3010; J3370; J3490; J7030; J7060; J7620; J7685; S0028; S0164

== ENCOUNTER 2016-12-29 10:08 | Observation (INO) | payer OTHER ==
--- NOTE | 2016-12-29 10:57 | ER Document Report ---
ED Medical Screen (RME) - General Chief Complaint: Chest Pain > 30 Stated Complaint: CHEST PAIN/LEFT LEG PAIN SWELLING Time Seen by Provider: 12/29/16 10:55 Notes: Patient states that he has been having shortness of breath and chest pain since this morning. He also states that he feels his left leg is swollen and painful. He states he had a knee replacement in this leg in September. He states is also had 2 recent bouts of anaphylactic shock from hydrocodone and Percocet for which she has had to be hospitalized. He states he is also been using his nebulizer for COPD but it provides minimal relief. He states he has CHF as well and has been taking all his medications. TRAVEL OUTSIDE OF THE [place] IN LAST 30 DAYS: No - Related Data Allergies/Adverse Reactions: codeine [Codeine] Allergy (Severe, Verified 12/29/16 10:26) Facial swelling hydrocodone bitartrate [From Vicodin] Allergy (Severe, Verified 12/29/16 10:26) Anaphylaxis lisinopril Allergy (Severe, Verified 12/29/16 10:26) Anaphylaxis hydromorphone [From Dilaudid] Allergy (Verified 12/29/16 10:26) Difficulty breathing morphine Allergy (Verified 12/29/16 10:26) Itching oxycodone Allergy (Verified 12/29/16 10:26) Swelling of tongue Past Medical History - Past Medical History Cardiac Medical History: Reports: Hx Atrial Fibrillation, Hx Congestive Heart Failure, Hx Hypercholesterolemia, Hx Hypertension, Hx Pulmonary Embolism Denies: Hx Coronary Artery Disease, Hx Heart Attack, Hx Peripheral Vascular Disease, Hx Heart Murmur Pulmonary Medical History: Reports: Hx Asthma, Hx COPD, Hx Pneumonia - 7 years ago, Hx Sleep Apnea - hx only, not a current problem, no CPAP, Hx Tuberculosis Denies: Hx Bronchitis, Hx Respiratory Failure Neurological Medical History: Reports: Hx Cerebrovascular Accident Endocrine Medical History: Reports: Hx Diabetes Mellitus Type 2. Denies: Hx Graves' Disease, Hx Hyperthyroidism, Hx Hypothyroidism Renal/ Medical History: Reports: Hx Kidney Stones - 1981. Denies: Hx Benign Prostatic Hyperplasia, Hx End Stage Renal Disease, Hx Peritoneal Dialysis Malignancy Medical History: Denies Hx Lung Cancer GI Medical History: Reports: Hx Gastroesophageal Reflux Disease, Hx Hepatitis - Hep C, Hx Ulcer. Denies: Hx Crohn's Disease, Hx Hiatal Hernia, Hx Irritable Bowel, Hx Liver Failure Musculoskeltal Medical History: Reports Hx Arthritis, Denies Hx Fibromyalgia, Denies Hx Multiple Sclerosis, Denies Hx Muscular Dystrophy, Reports Hx Musculoskeletal Deformity, Reports Hx Musculoskeletal Trauma Psychiatric Medical History: Denies: Hx Bipolar Disorder, Hx Dementia, Hx Depression, Hx Post Traumatic Stress Disorder, Hx Schizophrenia Traumatic Medical History: Reports: Hx Fractures, Hx Spine Fracture Infectious Medical History: Reports: Hx Hepatitis - Hep C Past Surgical History: Reports: Hx Abdominal Surgery - Hernia repair, bowel resection, Hx Appendectomy, Hx Bowel Surgery - bowel resection 1988, Hx Herniorrhaphy, Hx Oral Surgery, Hx Orthopedic Surgery - Spinal fusion. Meniscus repair.. Denies: Hx Cholecystectomy, Hx Colostomy, Hx Coronary Artery Bypass Graft, Hx Gastric Bypass Surgery, Hx Pacemaker, Hx Tonsillectomy - Immunizations Immunizations up to date: Yes Hx Diphtheria, Pertussis, Tetanus Vaccination: Yes Physical Exam - Vital signs Vitals: Temp Pulse Resp BP Pulse Ox 98.3 F 81 16 136/84 H 93 12/29/16 10:12/29/16 10:12/29/16 10:12/29/16 10:12/29/16 10:26 Course - Vital Signs Vital signs: Temp Pulse Resp BP Pulse Ox 98.3 F 81 16 136/84 H 12/29/16 10:12/29/16 10:12/29/16 10:12/29/16 10:12/29/16 10:26
--- NOTE | 2016-12-29 11:52 | ER Document Report ---
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 Patient also had a knee replacement in September of this past year. Patient's DVT/PE was prior to the knee replacement. Patient presents today with some intermittent substernal nonradiating chest "pressure" over the last 36 hours. He denies any aggravating or relieving factors. He denies any diaphoresis. He denies any recent trips, travel, shortness of breath, fevers, or leg swelling of the left lower extremity above baseline. Patient has had increased coughing without phlegm or sputum. TRAVEL OUTSIDE OF THE [place] IN LAST 30 DAYS: No - HPI Patient complains to provider of: Chest pain Was the onset of pain: Gradual Is the pain a: New problem Chest pain location: Substernal, Other - See above Quality of pain: Other - See above Chest pain radiation location: None Severity now: Mild Severity at worst: Moderate Pain level currently: 1 Cardiac risk factors: denies: None - See above Positive cardiac history: Yes Associated symptoms: Other - See above Exacerbated by: Denies Relieved by: Nothing Similar symptoms previously: Yes Recently seen / treated by doctor: Yes - Related Data Allergies/Adverse Reactions: codeine [Codeine] Allergy (Severe, Verified 12/29/16 10:26) Facial swelling hydrocodone bitartrate [From Vicodin] Allergy (Severe, Verified 12/29/16 10:26) Anaphylaxis lisinopril Allergy (Severe, Verified 12/29/16 10:26) Anaphylaxis hydromorphone [From Dilaudid] Allergy (Verified 12/29/16 10:26) Difficulty breathing morphine Allergy (Verified 12/29/16 10:26) Itching oxycodone Allergy (Verified 12/29/16 10:26) Swelling of tongue Past Medical History - General Information source: Patient - Social History Smoking Status: Former Smoker Cigarette use (# per day): No Chew tobacco use (# tins/day): No Smoking Education Provided: No Frequency of alcohol use: None Drug Abuse: None Family History: Arthritis, CAD - Mother and brother, CVA, DM, Hyperlipidemia, Hypertension, Malignancy Patient has suicidal ideation: No Patient has homicidal ideation: No - Past Medical History Cardiac Medical History: Reports: Hx Atrial Fibrillation, Hx Congestive Heart Failure, Hx Hypercholesterolemia, Hx Hypertension, Hx Pulmonary Embolism Denies: Hx Coronary Artery Disease, Hx Heart Attack, Hx Peripheral Vascular Disease, Hx Heart Murmur Pulmonary Medical History: Reports: Hx Asthma, Hx COPD, Hx Pneumonia - 7 years ago, Hx Sleep Apnea - hx only, not a current problem, no CPAP, Hx Tuberculosis Denies: Hx Bronchitis, Hx Respiratory Failure Neurological Medical History: Reports: Hx Cerebrovascular Accident Endocrine Medical History: Reports: Hx Diabetes Mellitus Type 2. Denies: Hx Graves' Disease, Hx Hyperthyroidism, Hx Hypothyroidism Renal/ Medical History: Reports: Hx Kidney Stones - 1981. Denies: Hx Benign Prostatic Hyperplasia, Hx End Stage Renal Disease, Hx Peritoneal Dialysis Malignancy Medical History: Denies Hx Lung Cancer GI Medical History: Reports: Hx Gastroesophageal Reflux Disease, Hx Hepatitis - Hep C, Hx Ulcer. Denies: Hx Crohn's Disease, Hx Hiatal Hernia, Hx Irritable Bowel, Hx Liver Failure Musculoskeltal Medical History: Reports Hx Arthritis, Denies Hx Fibromyalgia, Denies Hx Multiple Sclerosis, Denies Hx Muscular Dystrophy, Reports Hx Musculoskeletal Deformity, Reports Hx Musculoskeletal Trauma Psychiatric Medical History: Denies: Hx Bipolar Disorder, Hx Dementia, Hx Depression, Hx Post Traumatic Stress Disorder, Hx Schizophrenia Traumatic Medical History: Reports: Hx Fractures, Hx Spine Fracture Infectious Medical History: Reports: Hx Hepatitis - Hep C Past Surgical History: Reports: Hx Abdominal Surgery - Hernia repair, bowel resection, Hx Appendectomy, Hx Bowel Surgery - bowel resection 1988, Hx Herniorrhaphy, Hx Oral Surgery, Hx Orthopedic Surgery - Spinal fusion. Meniscus repair.. Denies: Hx Cholecystectomy, Hx Colostomy, Hx Coronary Artery Bypass Graft, Hx Gastric Bypass Surgery, Hx Pacemaker, Hx Tonsillectomy - Immunizations Immunizations up to date: Yes Hx Diphtheria, Pertussis, Tetanus Vaccination: Yes Hx Pneumococcal Vaccination: 04/12/13 Review of Systems - Review of Systems Constitutional: denies: Fever EENT: denies: Eye discharge, Nose discharge Respiratory: denies: Short of breath Gastrointestinal: denies: Abdomen distended, Abdominal pain, Vomiting Genitourinary: denies: Dysuria Musculoskeletal: denies: Leg swelling Skin: Other - no hives. denies: Rash Neurological/Psychological: Other - no slurred speech -: Yes All other systems reviewed and negative Physical Exam - Vital signs Vitals: Temp Pulse Resp BP Pulse Ox 98.3 F 81 16 136/84 H 93 12/29/16 10:26 12/29/16 10:26 12/29/16 10:26 12/29/16 10:12/29/16 10:26 Notes: Reviewed vital signs and nursing note as charted by RN. CONSTITUTIONAL: Alert and oriented and responds appropriately to questions. Well -appearing; well-nourished HEAD: Normocephalic; atraumatic CARD: Regular rate and rhythm; no murmurs, no clicks, no rubs, no gallops; symmetric distal pulses RESP: Normal chest excursion without splinting or tachypnea; breath sounds clear and equal bilaterally; no wheezes, no rhonchi, no rales ABD/GI: Normal bowel sounds; non-distended; soft, non-tender BACK: The back appears normal and is non-tender to palpation, there is no CVA tenderness EXT: Normal ROM in all joints; non-tender to palpation; no cyanosis, no effusions, no edema SKIN: Normal color for age and race; warm; dry; good turgor; capillary refill < 2 seconds; no acute lesions noted NEURO: Moves all extremities equally; Motor and sensory function intact PSYCH: The patient's mood and manner are appropriate. Grooming and personal hygiene are appropriate. Course - Re-evaluation Re-evalutation: 12/29/16 11:51 Given the history and physical examination, cardiac panel, EKG, chest x-ray, BNP , and a drug clerk has been ordered. Given that the patient has a history of COPD with a heart rate of 91, denying any shortness of breath, with a room air saturation currently at 95%, on Eliquis, I have ordered a d-dimer. I believe dissection to be extremely unlikely. 12/29/16 11:51 EKG shows a heart of 77, normal sinus rhythm, no obvious ST elevation or depression. Inverted T waves in lead III. Old EKG from June of this past year shows no acute change 12/29/16 12:35 Cardiovascular lab called me and states that the patient's lower extremity is negative for DVT. 12/29/16 13:48 Cardiac panel and d-dimer is recorded. 12/29/16 15:14 CT scan as recorded. Patient has no right upper extremity pain and is currently on Eliquis. Patient is currently pain-free. - Vital Signs Vital signs: Temp Pulse Resp BP Pulse Ox 98.3 F 81 16 136/84 H 93 12/29/16 10:26 12/29/16 10:26 12/29/16 10:26 12/29/16 10:26 12/29/16 10:26 - Laboratory Result Diagrams: 12/29/16 12:49 12/29/16 12:49 Laboratory results interpreted by me: 12/29/16 12/29/16 12:01 12:49 RDW 14.9 H Plt Count 130 L D-Dimer 1.13 H Discharge - Discharge Clinical Impression: Chest pain Qualifiers: Chest pain type: unspecified Qualified Code(s): R07.9 - Chest pain, unspecified Condition: Fair Disposition: ADMITTED OBSERVATION Admitting Provider: Hospitalist Unit Admitted: Telemetry
--- NOTE | 2016-12-29 11:55 | RADIOLOGY REPORT (SQ) ---
EXAM DESCRIPTION: CHEST SINGLE VIEW COMPLETED DATE/TIME: 12/29/2016 11:35 am REASON FOR STUDY: sob COMPARISON: 09/24/2016 EXAM PARAMETERS: NUMBER OF VIEWS: One view. TECHNIQUE: Single frontal radiographic view of the chest acquired. RADIATION DOSE: NA LIMITATIONS: None. FINDINGS: LUNGS AND PLEURA: Cannot exclude a 3 cm rounded mass in the medial right base. This could represent a pericardial fat pad. There is no infiltrate or effusion. MEDIASTINUM AND HILAR STRUCTURES: No masses. Contour normal. HEART AND VASCULAR STRUCTURES: Heart size is borderline. There is no evidence of failure. BONES: No acute findings. HARDWARE: None in the chest. OTHER: No other significant finding. IMPRESSION: 1. Borderline cardiomegaly. There is no failure. 2. Possible medial right lung base mass. Consider CT. TECHNICAL DOCUMENTATION: JOB ID: [id number]
--- NOTE | 2016-12-29 12:50 | EKG REPORT ---
SEVERITY:- BORDERLINE ECG - SINUS RHYTHM PROBABLE LEFT ATRIAL ABNORMALITY BORDERLINE T ABNORMALITIES, INFERIOR LEADS : Confirmed by: Elias Arce MD 29-Dec-2016 12:50:06
[2016-12-29 13:01] LABS: ABSOLUTE EOSINOPHILS # (AUTO) 0.1 10^3/uL (0.0-0.6); ABSOLUTE LYMPHOCYTES (AUTO) 1.7 10^3/uL (0.5-4.7); ABSOLUTE MONOCYTES (AUTO) 0.8 10^3/uL (0.1-1.4); ABSOLUTE NEUT (AUTO) 4.2 10^3/uL (1.7-8.2); BASOPHILS % (AUTO) 0.4 % (0-2); EOSINOPHILS % (AUTO) 1.6 % (0-6); HEMATOCRIT 43.7 % (37.9-51.0); HEMOGLOBIN 14.7 g/dL (13.5-17.0); HGB HCT DIFFERENCE 0.4; LYMPHOCYTES % (AUTO) 25.6 % (13-45); MEAN CORPUSCULAR HEMOGLOBIN 29.3 pg (27.0-33.4); MEAN CORPUSCULAR HGB CONC 33.6 g/dL (32.0-36.0); MEAN CORPUSCULAR VOLUME 87 fl (80-97); MONOCYTES % (AUTO) 11.1 % (3-13); RED BLOOD COUNT 5.01 10^6/uL (4.35-5.55); RED CELL DISTRIBUTION WIDTH 14.9 % (11.5-14.0); SEGMENTED NEUTROPHILS % (AUTO) 61.3 % (42-78); WHITE BLOOD COUNT 6.8 10^3/uL (4.0-10.5)
[2016-12-29 13:21] LABS: ALANINE AMINOTRANSFERASE 31 U/L (21-72); ALBUMIN 4.2 g/dL (3.5-5.0); ALKALINE PHOSPHATASE 80 U/L (38-126); ANION GAP 8 (5-19); ASPARTATE AMINO TRANSFERASE 20 U/L (17-59); BILIRUBIN,DIRECT 0.3 mg/dL (0.0-0.4); BILIRUBIN,TOTAL 0.4 mg/dL (0.2-1.3); BLOOD UREA NITROGEN 8 mg/dL (7-20); CALCIUM 9.4 mg/dL (8.4-10.2); CARBON DIOXIDE 30 mmol/L (22-30); CHLORIDE 102 mmol/L (98-107); CREATININE RESULT 0.72 mg/dL (0.52-1.25); GLUCOSE 98 mg/dL (75-110); POTASSIUM 4.1 mmol/L (3.6-5.0); SODIUM 140.1 mmol/L (137-145); TOTAL PROTEIN 7.1 g/dL (6.3-8.2)
[2016-12-29 13:34] LABS: TROPONIN I < 0.012 ng/mL
--- NOTE | 2016-12-29 14:44 | XCELERA REPORT ---
[address] [address] Lower Extremity Venous Evaluation Name: SHANAE TSANG JR Age: 61 yrs Gender: Male : 1955 Patient Status: Emergency Patient Location: ER Study Date: 12/29/2016 12:07 PM Procedure: Color flow and duplex imaging of the veins of the left lower extremity as well as the right Common Femoral vein. Reason For Study: left leg swelling Ordering Physician: SHANON SIERRA Performed By: Brynn Hager Right Sided Venous Evaluation The right common femoral vein is fully compressible. Spontaneous and phasic flow is present in the right common femoral vein. Left Sided Venous Evaluation Normal vessel filling wall to wall, compression and augmentation as well as Colour flow down to the infrageniculate veins. Interpretation Summary No duplex evidence of DVT or obstruction in the left lower extremity nor in the right Common Femoral vein. : SHANON SIERRA > Cj Gurrola
--- NOTE | 2016-12-29 15:02 | RADIOLOGY REPORT (SQ) ---
EXAM DESCRIPTION: CTA CHEST COMPLETED DATE/TIME: 12/29/2016 2:03 pm REASON FOR STUDY: 19; h/o PE COMPARISON: 03/16/2015 TECHNIQUE: CT scan of the chest performed using helical scanning technique with dynamic intravenous contrast injection. Images reviewed with lung, soft tissue and bone windows. Reconstructed coronal and sagittal MPR images reviewed. Additional 3 dimensional post-processing performed to develop Maximal Intensity Projection images (SC P). All images stored on PACS. All CT scanners at this facility use dose modulation, iterative reconstruction, and/or weight based d osing when appropriate to reduce radiation dose to as low as reasonably achievable (ALARA). [facility]: Dose Right [facility]: CareDose [facility]: Dose Right [facility]: Teradose 4D [facility]: eASIC CONTRAST TYPE AND DOSE: contrast/concentration: Isovue 370.00 mg/ml; Total Contrast Delivered: 156.0 ml; Total Saline Delivered: 177.3 ml 156 cc Isovue 370- low osmolar. Contrast bolus optimized for the pulmonary arteries. Not diagnostic for the aorta. RENAL FUNCTION: Creatinine 0.7 BUN 8 RADIATION DOSE: Up-to-date CT equipment and radiation dose reduction techniques were employed. CTDIv ol: 8.3 - 35.1 mGy. DLP: 2797 mGy-cm. . LIMITATIONS: Quite limited by the timing of the contrast. The arteries are poorly opacified. FINDINGS: LUNGS AND PLEURA: No masses, infiltrates, pneumothorax. No pleural effusions, calcificati ons. AORTA AND GREAT VESSELS: No aneurysm. Contrast bolus not optimized for the aorta. HEART: No pericardial effusion. No significant coronary artery calcifications. PULMONARY ARTERIES: No obvious pulmonary emboli seen. No central emboli present. Evaluation is quit e limited. HILAR AND MEDIASTINAL STRUCTURES: No identified masses or abnormal nodes. HARDWARE: None in the chest. UPPER ABDOMEN: There is a heterogeneous, somewhat lobular right adrenal nodule that measures 26 mm. This is stable. THYROID AND OTHER SOFT TISSUES: No masses. No adenopathy. BONES: Thoracolumbar spondylosis. No osseous lesion is seen. 3D MIPS: Confirm above findings. OTHER: Venous collaterals are seen on the upper right chest. IMPRESSION: 1. No major pulmonary emboli are seen. The study is quite limited. 2. Stable right adrenal nodule. 3. Venous collaterals on the upper right chest indicating right upper extremity venous occlusion. COMMENT: Quality ID # [id number]: Final reports with documentation of one or more dose reduction techniques (e.g., Automated exposure control, adjustment of the mA and/or kV according to patient size, use of iterative reconstruction technique) TECHNICAL DOCUMENTATION: JOB ID: [id number] [employer]- All Rights Reserved
[2016-12-29] MEDS ORDERED: ONDANSETRON 4 MG TAB.RAPDIS PO PRN (16:11)
[2016-12-29] MEDS ORDERED: ACETAMINOPHEN 325 MG TABLET PO PRN (16:11)
[2016-12-29] MEDS ORDERED: DEXTROSE 50%-WATER 25 GM/50 ML DISP.SYRIN IV PRN ×4 (16:21→16:27)
[2016-12-29] MEDS ORDERED: GLUCAGON,HUMAN RECOMB 1 MG INJ SUBCUT PRN (16:21)
[2016-12-29] MEDS ORDERED: DEXTROSE 40% GEL 15 GM TUBE PO PRN ×4 (16:21→16:27)
[2016-12-29] MEDS ORDERED: GLUCAGON,HUMAN RECOMB 1 MG INJ IM PRN (16:27)
[2016-12-29] MEDS ORDERED: INSULIN REG, HUMAN 100 UNIT/ML 3 ML VIAL (PYX) SUBCUT PRN (16:27)
--- NOTE | 2016-12-29 16:43 | PDOC H&P ---
History of Present Illness Admission Date/PCP: 12/29/16 15:40 Patient complains of: Chest Pain History of Present Illness: SHANAE TSANG JR is a 61 year old male presents with complaint of chest pain for the last 2 days. Pt states that he was concerned that he had another PE. Pt states that his chest pain is occurring at rest. Pt states that he has not had any trauma. Pt states that he has been coughing at home for a few days. states that he has had some wheezing at time but now for the last 2 days. ER states that CTA of chest demonstrated no PE and ultrasound of lower ext no DVT. Past Medical History Cardiac Medical History: Reports: Atrial Fibrillation, Congestive Heart Failure , Hyperlipidema, Hypertension, Pulmonary Embolism Denies: Coronary Artery Disease, Myocardial Infarction, Peripheral Vascular Disease, Heart Murmur Pulmonary Medical History: Reports: Asthma, Chronic Obstructive Pulmonary Disease (COPD), Pneumonia - 7 years ago, Sleep Apnea - hx only, not a current problem, no CPAP, Tuberculosis Denies: Bronchitis, Respiratory Failure Neurological Medical History: Endocrine Medical History: Reports: Diabetes Mellitus Type 2 Denies: Hyperthyroidism, Hypothyroidism Renal/ Medical History: Denies: End Stage Renal Disease Malignancy Medical History: Denies: Lung Cancer GI Medical History: Reports: Gastroesophageal Reflux Disease, Hepatitis - Hep C Denies: Crohn's Disease, Hiatal Hernia Musculoskeltal Medical History: Reports: Arthritis Denies: Fibromyalgia Psychiatric Medical History: Denies: Bipolar Disorder, Dementia, Depression, Post Traumatic Stress Disorder Past Surgical History Past Surgical History: Reports: Appendectomy, Herniorrhaphy, Orthopedic Surgery - Spinal fusion. Meniscus repair. Denies: Cholecystectomy, Colostomy, Coronary Artery Bypass Graft, Gastric Bypass Surgery, Pacemaker, Tonsillectomy Social History Smoking Status: Former Smoker Frequency of Alcohol Use: None Hx Recreational Drug Use: No Drugs: Cocaine Hx Prescription Drug Abuse: No - Advance Directive Resuscitation Status: Full Code Family History Family History: Arthritis, CAD - Mother and brother, CVA, DM, Hyperlipidemia, Hypertension, Malignancy Parental Family History Reviewed: Yes Children Family History Reviewed: Yes Sibling(s) Family History Reviewed.: Yes Medication/Allergy Home Medications: Amitriptyline HCl [Elavil 75 mg Tablet] 75 mg PO QHS 09/21/16 Amlodipine Besylate 10 mg PO QAM 09/21/16 Apixaban [Eliquis 5 mg Tablet] 5 mg PO Q12 09/21/16 Aspirin [Ecotrin 81 mg EC Tablet] 81 mg PO QAM 09/21/16 Ferrous Sulfate [Feosol 325 mg Tablet] 325 mg PO DAILY 09/21/16 Gabapentin [Neurontin 100 mg Capsule] 100 mg PO Q8 09/21/16 Hydrochlorothiazide 25 mg PO QAM 09/21/16 Insulin Glargine,Hum.rec.anlog [Lantus] 50 units SQ QHS 09/21/16 Metoprolol Tartrate [Lopressor 25 mg Tablet] 25 mg PO Q12 09/21/16 Omeprazole 40 mg PO QAM 09/21/16 Pravastatin Sodium [Pravachol] 20 mg PO QHS 09/21/16 Ranitidine HCl 150 mg PO QHS 09/21/16 Terazosin HCl 4 mg PO QHS 09/21/16 Tiotropium Ven[place] [Spiriva Handihaler 18 mcg/dose (30 Dose)] 1 cap IH QAM 09/21 Albuterol Sulfate [Proair HFA] 2 puff IH Q6HP PRN 09/22/16 Budesonide/Formoterol Fumarate [Symbicort HFA 160-4.5 mcg Inhaler 6 gm] 2 puff IH Q12 09/22/16 Fluticasone Propionate [Flonase Nasal [place] 50 Mcg/[place] 16 gm] 1 spray NAREB Q12 09/22/16 Insulin Aspart [Novolog Insulin (Aspart) 100 unit/mL] 30 unit SUBCUT ACSUPPER Insulin Aspart [Novolog Insulin 100 Unit/1 ml 10 ml] 36 unit SUBCUT ACBRKFST Lactulose [Constulose 10 gm/15 mL Oral Solution] 15 ml PO DAILY 09/22/16 Sildenafil Citrate [Viagra] 100 mg PO ASDIR PRN MDD 1 TAB 09/22/16 Acetaminophen [Tylenol 650 mg Supp] 650 mg MT Q4HP PRN supp.rect 09/26/16 Levofloxacin [Levaquin 750 mg Tablet] 750 mg PO DAILY #5 tablet 09/26/16 Naproxen [Naprosyn 250 mg Tablet] 500 mg PO Q12HP PRN #60 tablet 09/26/16 Allergies/Adverse Reactions: codeine [Codeine] Allergy (Severe, Verified 12/29/16 10:26) Facial swelling hydrocodone bitartrate [From Vicodin] Allergy (Severe, Verified 12/29/16 10:26) Anaphylaxis lisinopril Allergy (Severe, Verified 12/29/16 10:26) Anaphylaxis hydromorphone [From Dilaudid] Allergy (Verified 12/29/16 10:26) Difficulty breathing morphine Allergy (Verified 12/29/16 10:26) Itching oxycodone Allergy (Verified 12/29/16 10:26) Swelling of tongue Review of Systems Constitutional: ABSENT: chills, fever(s), headache(s), weight gain, weight loss Eyes: ABSENT: visual disturbances Ears: ABSENT: hearing changes Cardiovascular: PRESENT: chest pain. ABSENT: dyspnea on exertion, edema, orthropnea, palpitations Respiratory: PRESENT: cough Gastrointestinal: ABSENT: abdominal pain, constipation, diarrhea, hematemesis, hematochezia, nausea, vomiting Genitourinary: ABSENT: dysuria, hematuria Musculoskeletal: ABSENT: joint swelling Integumentary: ABSENT: rash, wounds Neurological: ABSENT: abnormal gait, abnormal speech, confusion, dizziness, focal weakness, syncope Psychiatric: ABSENT: anxiety, depression, homidical ideation, suicidal ideation Endocrine: ABSENT: cold intolerance, heat intolerance, polydipsia, polyuria Hematologic/Lymphatic: ABSENT: easy bleeding, easy bruising Physical Exam Vital Signs: Temp Pulse Resp BP Pulse Ox 98.3 F 81 16 136/84 H 93 12/29/16 10:26 12/29/16 10:26 12/29/16 10:26 12/29/16 10:26 12/29/16 10:26 General appearance: PRESENT: no acute distress, well-developed, well-nourished Head exam: PRESENT: atraumatic, normocephalic Eye exam: PRESENT: conjunctiva pink, EOMI, PERRLA. ABSENT: scleral icterus Ear exam: PRESENT: normal external ear exam Mouth exam: PRESENT: moist, tongue midline Neck exam: ABSENT: carotid bruit, JVD, lymphadenopathy, thyromegaly Respiratory exam: PRESENT: clear to auscultation angelina. ABSENT: rales, rhonchi, wheezes Cardiovascular exam: PRESENT: RRR. ABSENT: diastolic murmur, rubs, systolic murmur Pulses: PRESENT: normal dorsalis pedis pul Vascular exam: PRESENT: normal capillary refill Rectal exam: PRESENT: deferred Extremities exam: PRESENT: full ROM. ABSENT: calf tenderness, clubbing, pedal edema Musculoskeletal exam: PRESENT: other - pt with Left side sternal and chest wall tenderness to palpation Neurological exam: PRESENT: alert, awake, oriented to person, oriented to place , oriented to time, oriented to situation, CN II-XII grossly intact. ABSENT: motor sensory deficit Psychiatric exam: PRESENT: appropriate affect, normal mood. ABSENT: homicidal ideation, suicidal ideation Skin exam: PRESENT: dry, intact, warm. ABSENT: cyanosis, rash Results Impressions: Chest X-Ray 12/29/16 10:55 IMPRESSION: 1. Borderline cardiomegaly. There is no failure. 2. Possible medial right lung base mass. Consider CT. Chest/Abdomen CTA 12/29/16 13:15 IMPRESSION: 1. No major pulmonary emboli are seen. The study is quite limited. 2. Stable right adrenal nodule. 3. Venous collaterals on the upper right chest indicating right upper extremity venous occlusion. Assessment & Plan - Diagnosis (1) Chest pain Qualifiers: Chest pain type: unspecified Qualified Code(s): R07.9 - Chest pain, unspecified Is this a current diagnosis for this admission?: Yes Plan: Will arrange Nuclear Stress test, 2 D Echo, Lipid profile, A1C, and troponin trend. (2) Musculoskeletal chest pain Is this a current diagnosis for this admission?: Yes Plan: Left side chest wall tenderness and left sternal tenderness to palpation. (3) Thrombosis Is this a current diagnosis for this admission?: Yes Plan: Superficial Venous Right Upper Ext: Supportive Care. (4) COPD (chronic obstructive pulmonary disease) Qualifiers: COPD type: unspecified COPD Qualified Code(s): J44.9 - Chronic obstructive pulmonary disease, unspecified Is this a current diagnosis for this admission?: Yes Plan: Will write for PRN Breathing treatments. (5) Diabetes Qualifiers: Diabetes mellitus type: type 2 Diabetes mellitus complication status: with diabetic arthropathy Diabetes mellitus complication detail: with other arthropathy Diabetes mellitus terminal clerk insulin use: with terminal clerk use Qualified Code(s): E11.618 - Type 2 diabetes mellitus with other diabetic arthropathy Is this a current diagnosis for this admission?: Yes Plan: SSI. (6) DVT prophylaxis Is this a current diagnosis for this admission?: Yes Plan: Eliquis - Time Time Spent: 30 to 50 Minutes Anticipated discharge: Home
[2016-12-29] MEDS ORDERED: IPRATROPIUM/ALBUTEROL 0.5-2.5 MG/3 ML AMPUL NEB ONE (17:00)
[2016-12-29 19:18] LABS: URINE BARBITURATES SCREEN NEGATIVE; URINE METHADONE SCREEN NEGATIVE; URINE OPIATES LOW NEGATIVE; URINE PHENCYCLIDINE SCREEN NEGATIVE
[2016-12-29] MEDS: IPRATROPIUM/ALBUTEROL 0.5-2.5 MG/3 ML AMPUL NEB SCH (20:35)
[2016-12-30] MEDS ORDERED: INSULIN GLARGINE,HUM.REC.ANLOG 300 UNIT/3 ML INSULN.PEN SUBCUT SCH (00:35)
[2016-12-30] MEDS ORDERED: INSULIN GLARGINE,HUM.REC.ANLOG 1,000 UNIT/10 ML UNIT SUBCUT ONE (01:09)
[2016-12-30] MEDS: LANSOPRAZOLE 30 MG TAB.RAP.DR PO SCH (05:47)
[2016-12-30] MEDS: IPRATROPIUM/ALBUTEROL 0.5-2.5 MG/3 ML AMPUL NEB SCH ×3 (08:11→19:36)
--- NOTE | 2016-12-30 08:17 | EKG REPORT ---
SEVERITY:- BORDERLINE ECG - SINUS TACHYCARDIA PROBABLE LEFT ATRIAL ABNORMALITY NONSPECIFIC ST-T CHANGES- INFERIOR LEADS : Confirmed by: Elias Arce MD 30-Dec-2016 08:16:12
[2016-12-30 08:57] LABS: ABSOLUTE EOSINOPHILS # (AUTO) 0.1 10^3/uL (0.0-0.6); ABSOLUTE LYMPHOCYTES (AUTO) 1.5 10^3/uL (0.5-4.7); ABSOLUTE MONOCYTES (AUTO) 0.7 10^3/uL (0.1-1.4); ABSOLUTE NEUT (AUTO) 4.9 10^3/uL (1.7-8.2); BASOPHILS % (AUTO) 0.3 % (0-2); EOSINOPHILS % (AUTO) 1.4 % (0-6); HEMOGLOBIN 14.8 g/dL (13.5-17.0); HGB HCT DIFFERENCE 0.4; LYMPHOCYTES % (AUTO) 21.2 % (13-45); MEAN CORPUSCULAR HEMOGLOBIN 29.4 pg (27.0-33.4); MEAN CORPUSCULAR HGB CONC 33.7 g/dL (32.0-36.0); MEAN CORPUSCULAR VOLUME 87 fl (80-97); MONOCYTES % (AUTO) 9.1 % (3-13); RED BLOOD COUNT 5.04 10^6/uL (4.35-5.55); RED CELL DISTRIBUTION WIDTH 14.6 % (11.5-14.0); WHITE BLOOD COUNT 7.2 10^3/uL (4.0-10.5)
[2016-12-30] MEDS: BUDESONIDE/FORMOTEROL 160-4.5 MCG 60 PUFF/6 GM MDI IH SCH ×2 (09:06→22:27)
[2016-12-30 09:09] LABS: ANION GAP 11 (5-19); BLOOD UREA NITROGEN 8 mg/dL (7-20); CALCIUM 9.6 mg/dL (8.4-10.2); CARBON DIOXIDE 31 mmol/L (22-30); CHLORIDE 99 mmol/L (98-107); CHOLESTEROL 169.21 mg/dL (0-200); CREATINE KINASE 137 U/L (55-170); CREATININE RESULT 0.75 mg/dL (0.52-1.25); Direct HDL 84 mg/dL (>40); GLUCOSE 149 mg/dL (75-110); POTASSIUM 4.3 mmol/L (3.6-5.0); SODIUM 140.5 mmol/L (137-145); TRIGLYCERIDES 76 mg/dL (<150)
[2016-12-30 09:20] LABS: DIRECT LDL 63 mg/dL (<100)
[2016-12-30] MEDS ORDERED: INSULIN LISPRO 100 UNIT/ML 3 ML VIAL SUBCUT PRN (12:07)
--- NOTE | 2016-12-30 13:54 | PDOC PROGRESS REPORT ---
Subjective Progress Note for:: 12/30/16 Subjective:: Nursing called to report that pt was having chest pain during the stress test and tachycardia. Pt states that he did use cocaine but not as much as he use too. Physical Exam Vital Signs: Temp Pulse Resp BP Pulse Ox 98.4 F 116 H 20 113/97 H 91 L 12/30/16 11:14 12/30/16 11:14 12/30/16 11:14 12/30/16 11:14 12/30/16 11:14 Intake & Output 12/29/16 12/30/16 12/31/16 06:59 06:59 06:59 Intake Total 800 Output Total 600 Balance 200 Weight 135.4 kg General appearance: PRESENT: no acute distress, well-developed, well-nourished Head exam: PRESENT: atraumatic Eye exam: PRESENT: conjunctiva pink, EOMI. ABSENT: scleral icterus Ear exam: PRESENT: normal external ear exam Mouth exam: PRESENT: moist, tongue midline Neck exam: ABSENT: carotid bruit, JVD, lymphadenopathy, thyromegaly Respiratory exam: PRESENT: other - + left side chest wall pain to palpation Cardiovascular exam: PRESENT: RRR, other - + left side chest wall tenderness to palpation. ABSENT: diastolic murmur, rubs, systolic murmur Pulses: PRESENT: normal dorsalis pedis pul Vascular exam: PRESENT: normal capillary refill GI/Abdominal exam: PRESENT: normal bowel sounds, soft. ABSENT: distended, guarding, mass, organolmegaly, rebound, tenderness Rectal exam: PRESENT: deferred Extremities exam: PRESENT: full ROM. ABSENT: calf tenderness, clubbing, pedal edema Neurological exam: PRESENT: alert, awake, oriented to person, oriented to place , oriented to time, oriented to situation, CN II-XII grossly intact. ABSENT: motor sensory deficit Psychiatric exam: PRESENT: appropriate affect, normal mood. ABSENT: homicidal ideation, suicidal ideation Skin exam: PRESENT: dry, intact, warm. ABSENT: cyanosis, rash Results Laboratory Results: 12/30/16 08:25 12/30/16 08:25 12/30/16 12/30/16 08:25 08:25 WBC 7.2 RBC 5.04 Hgb 14.8 Hct 44.0 MCV 87 MCH 29.4 MCHC 33.7 RDW 14.6 H Plt Count 137 L Seg Neutrophils % 68.0 Lymphocytes % 21.2 Monocytes % 9.1 Eosinophils % 1.4 Basophils % 0.3 Absolute Neutrophils 4.9 Absolute Lymphocytes 1.5 Absolute Monocytes 0.7 Absolute Eosinophils 0.1 Absolute Basophils 0.0 Sodium 140.5 Potassium 4.3 Chloride 99 Carbon Dioxide 31 H Anion Gap 11 BUN 8 Creatinine 0.75 Est GFR ( Amer) > 60 Est GFR (Non-Af Amer) > 60 Glucose 149 H Calcium 9.6 Triglycerides 76 Cholesterol 169.21 LDL Cholesterol Direct 63 VLDL Cholesterol 15.0 HDL Cholesterol 84 12/29/16 12/29/16 12/30/16 20:00 20:00 01:57 Creatine Kinase 118 129 Troponin I < 0.012 12/30/16 12/30/16 12/30/16 01:57 08:25 08:25 Creatine Kinase 137 Troponin I < 0.012 < 0.012 Impressions: Chest X-Ray 12/29/16 10:55 IMPRESSION: 1. Borderline cardiomegaly. There is no failure. 2. Possible medial right lung base mass. Consider CT. Chest/Abdomen CTA 12/29/16 13:15 IMPRESSION: 1. No major pulmonary emboli are seen. The study is quite limited. 2. Stable right adrenal nodule. 3. Venous collaterals on the upper right chest indicating right upper extremity venous occlusion. Assessment & Plan - Diagnosis (1) Chest pain Qualifiers: Chest pain type: unspecified Qualified Code(s): R07.9 - Chest pain, unspecified Is this a current diagnosis for this admission?: Yes Plan: + Cocaine Positive and reproducible left sided chest wall pain. Pt scheduled for Nuclear but cancelled due to patient complaining of chest pain and tachycardia. Will consult Cardiology. (2) Cocaine abuse Is this a current diagnosis for this admission?: Yes Plan: Pt tested positive for cocaine during this admission. (3) Musculoskeletal chest pain Is this a current diagnosis for this admission?: Yes Plan: Left side chest wall tenderness and left sternal tenderness to palpation. (4) Thrombosis Is this a current diagnosis for this admission?: Yes Plan: Superficial Venous Right Upper Ext: Supportive Care. (5) COPD (chronic obstructive pulmonary disease) Qualifiers: COPD type: unspecified COPD Qualified Code(s): J44.9 - Chronic obstructive pulmonary disease, unspecified Is this a current diagnosis for this admission?: Yes Plan: PRN Breathing treatments. (6) Diabetes Qualifiers: Diabetes mellitus type: type 2 Diabetes mellitus complication status: with diabetic arthropathy Diabetes mellitus complication detail: with other arthropathy Diabetes mellitus intermediate insulin use: with manager long term care use Qualified Code(s): E11.618 - Type 2 diabetes mellitus with other diabetic arthropathy Is this a current diagnosis for this admission?: Yes Plan: SSI. (7) DVT prophylaxis Is this a current diagnosis for this admission?: Yes Plan: Vidal
[2016-12-30] MEDS ORDERED: INSULIN ASPART 25 UNIT SQ SCH (16:00)
[2016-12-30] MEDS: INSULIN LISPRO 100 UNIT/ML 3 ML VIAL SUBCUT SCH (17:00)
--- NOTE | 2016-12-30 19:21 | XCELERA REPORT ---
[address] [address] Transthoracic Echocardiogram Report Name: SHANAE TSANG JR Age: 61 yrs Gender: Male : 1955 Patient Status: Inpatient Patient Location: [address] [place] [address] Study Date: 12/30/2016 01:07 PM Height: 72 in Weight: 290 lb BSA: 2.5 m2 Procedure: A complete two-dimensional transthoracic echocardiogram was performed (2D, M-mode, spectral and color flow Doppler). The study was technically difficult with many images being suboptimal in quality. Reason For Study: Chest pain Ordering Physician: RADHA HUBER Performed By: Brynn Hager Interpretation Summary The study was technically difficult with many images being suboptimal in quality. The left ventricular ejection fraction is normal. Doppler measurements suggest pseudonormalized left ventricular relaxation, which is associated with grade II/IV or mild to moderate diastolic dysfunction There is moderate concentric left ventricular hypertrophy. The left ventricle is grossly normal size. Wall motion cannot be accurately commented on, but no definite regional wall motion abnormalities noted. The right ventricular systolic function is normal. The right atrium is normal in size The left atrium is moderately dilated. There is a trace amount of mitral regurgitation There is no mitral valve stenosis. No aortic regurgitation is present. There is no aortic valve stenosis There is a trace or physiologic amount of tricuspid regurgitation Tricuspid regurgitation jet envelope not well defined to measure RV systolic pressure accurately. The aortic root is not well visualized. The inferior vena cava was not well visualized Minimal pericardial effusion. MMode/2D Measurements & Calculations RVDd: 3.0 cm LVIDd: 4.3 cm FS: 49.0 % Ao root diam: 3.3 cm IVSd: 1.4 cm LVIDs: 2.2 cm EDV(Teich): 83.7 ml LVPWd: 1.4 cm ESV(Teich): 16.2 ml Ao root area: 8.4 cm2 EF(Teich): 80.6 % LA dimension: 4.8 cm Doppler Measurements & Calculations MV E max regis: MV P1/2t max regis: Ao V2 max: LV V1 max P.9 cm/sec 48.4 cm/sec 155.1 cm/sec 7.2 mmHg MV A max regis: MV P1/2t: 45.8 msec Ao max PG: LV V1 max: 84.4 cm/sec 9.6 mmHg 134.3 cm/sec MV E/A: 0.58 MVA(P1/2t): 4.8 cm2 MV dec slope: 309.4 cm/sec2 MV dec time: 0.15 sec PA V2 max: 104.1 cm/sec PA max P.3 mmHg Left Ventricle The left ventricle is grossly normal size. There is moderate concentric left ventricular hypertrophy. The left ventricular ejection fraction is normal. Doppler measurements suggest pseudonormalized left ventricular relaxation, which is associated with grade II/IV or mild to moderate diastolic dysfunction. Wall motion cannot be accurately commented on, but no definite regional wall motion abnormalities noted. Right Ventricle The right ventricle is borderline dilated. There is normal right ventricular wall thickness. The right ventricular systolic function is normal. Atria The right atrium is normal in size. The left atrium is moderately dilated. Interarterial septum not well visualized and not well dopplered. Cannot comment on ASD/PFO presence. Mitral Valve The mitral valve is grossly normal. There is no mitral valve stenosis. There is a trace amount of mitral regurgitation. Aortic Valve The aortic valve is grossly normal. There is no aortic valve stenosis. No aortic regurgitation is present. Tricuspid Valve The tricuspid valve is not well visualized secondary to technical limitations. There is no tricuspid stenosis. There is a trace or physiologic amount of tricuspid regurgitation. Tricuspid regurgitation jet envelope not well defined to measure RV systolic pressure accurately. Pulmonic Valve The pulmonic valve is not well visualized. Great Vessels The aortic root is not well visualized. The inferior vena cava was not well visualized. Effusions Minimal pericardial effusion. : RADHA HUBER Shyamal
[2016-12-30] MEDS ORDERED: FAMOTIDINE 20 MG TABLET PO SCH (22:00)
[2016-12-30] MEDS ORDERED: (PENDING PHARMACY ID) (Terazosin Hcl [Hytrin] 4 MG) PO SCH (22:00)
[2016-12-30] MEDS ORDERED: DOXAZOSIN MESYLATE 4 MG TABLET PO SCH (22:00)
[2016-12-30] MEDS ORDERED: AMITRIPTYLINE HCL 75 MG TABLET PO SCH (22:00)
[2016-12-30] MEDS ORDERED: (PENDING PHARMACY ID) (Ranitidine Hcl [Zantac 150 Mg Tablet] 150 MG) PO SCH (22:00)
[2016-12-30] MEDS: METOPROLOL TARTRATE 25 MG TABLET PO SCH (22:24)
[2016-12-30] MEDS: GABAPENTIN 100 MG CAPSULE PO SCH (22:24)
[2016-12-30] MEDS: TRAMADOL HCL 50 MG TABLET PO SCH (22:24)
[2016-12-30] MEDS: APIXABAN 5 MG TABLET PO SCH (22:26)
[2016-12-30] MEDS: FLUTICASONE NASAL SPRAY 50 MCG/SPRY 120 SPRAY/16 GM NASL SCH (22:27)
[2016-12-31 05:18] LABS: ABSOLUTE EOSINOPHILS # (AUTO) 0.1 10^3/uL (0.0-0.6); ABSOLUTE LYMPHOCYTES (AUTO) 1.6 10^3/uL (0.5-4.7); ABSOLUTE MONOCYTES (AUTO) 0.9 10^3/uL (0.1-1.4); ABSOLUTE NEUT (AUTO) 5.2 10^3/uL (1.7-8.2); BASOPHILS % (AUTO) 0.5 % (0-2); EOSINOPHILS % (AUTO) 1.4 % (0-6); HEMATOCRIT 43.1 % (37.9-51.0); HEMOGLOBIN 14.3 g/dL (13.5-17.0); HGB HCT DIFFERENCE -0.2; MEAN CORPUSCULAR HGB CONC 33.3 g/dL (32.0-36.0); MEAN CORPUSCULAR VOLUME 87 fl (80-97); MONOCYTES % (AUTO) 11.6 % (3-13); RED BLOOD COUNT 4.94 10^6/uL (4.35-5.55); RED CELL DISTRIBUTION WIDTH 15.1 % (11.5-14.0); SEGMENTED NEUTROPHILS % (AUTO) 66.5 % (42-78); WHITE BLOOD COUNT 7.9 10^3/uL (4.0-10.5)
[2016-12-31 05:35] LABS: ANION GAP 8 (5-19); BLOOD UREA NITROGEN 13 mg/dL (7-20); CARBON DIOXIDE 32 mmol/L (22-30); CHLORIDE 100 mmol/L (98-107); CREATININE RESULT 0.73 mg/dL (0.52-1.25); GLUCOSE 155 mg/dL (75-110); POTASSIUM 4.4 mmol/L (3.6-5.0); SODIUM 139.9 mmol/L (137-145)
[2016-12-31] MEDS: GABAPENTIN 100 MG CAPSULE PO SCH ×2 (05:50→14:33)
[2016-12-31] MEDS: TRAMADOL HCL 50 MG TABLET PO SCH ×2 (05:50→14:33)
[2016-12-31] MEDS: LANSOPRAZOLE 30 MG TAB.RAP.DR PO SCH (05:50)
--- NOTE | 2016-12-31 06:43 | Physician Advisory Note ---
Physician Advisor Marisela .: [facility], I have reviewed the medical record for this patient. Physician Advisor Statement: Please document: 1. "CP, most likely due to " - by time of d/c, please make it explicit the most likely cause, in your opinion, for the CP listed as dx #1 - coders can't assume that it is the same CP that is felt to be musculoskeletal. 2. "Chronic diastolic CHF" - Whenever we say CHF, we must state whether acute, chronic, or [id number] , & whether systolic or diastolic or both. Thanks! CK - Text/call/email with any ?s - [phone], [email or web address]
[2016-12-31] MEDS ORDERED: INSULIN LISPRO 100 UNIT/ML 3 ML VIAL SUBCUT SCH (08:00)
[2016-12-31] MEDS ORDERED: (PENDING PHARMACY ID) (Insulin Aspart [Novolog Flexpen] 18 UNITS) SQ SCH (08:00)
[2016-12-31] MEDS: IPRATROPIUM/ALBUTEROL 0.5-2.5 MG/3 ML AMPUL NEB SCH ×2 (09:03→13:44)
[2016-12-31] MEDS ORDERED: FERROUS SULFATE 325 MG TABLET PO SCH (10:00)
[2016-12-31] MEDS ORDERED: AMLODIPINE BESYLATE 10 MG TABLET PO SCH (10:00)
[2016-12-31] MEDS ORDERED: LANSOPRAZOLE 30 MG TAB.RAP.DR PO SCH (10:00)
[2016-12-31] MEDS ORDERED: ASCORBIC ACID 500 MG TABLET PO SCH (10:00)
[2016-12-31] MEDS ORDERED: HYDROCHLOROTHIAZIDE 25 MG TABLET PO SCH (10:00)
[2016-12-31] MEDS ORDERED: ASPIRIN 81 MG TABLET, ENT COATED PO SCH (10:00)
[2016-12-31] MEDS: APIXABAN 5 MG TABLET PO SCH (11:26)
[2016-12-31] MEDS: INSULIN LISPRO 100 UNIT/ML 3 ML VIAL SUBCUT SCH (11:27)
[2016-12-31] MEDS ORDERED: AMINOPHYLLINE INJ/PF 250 MG/10 ML SDV IV ONE (11:29)
[2016-12-31] MEDS ORDERED: REGADENOSON INJ 0.4 MG/5 ML DISP.SYRIN IV ONE (11:29)
[2016-12-31] MEDS: METOPROLOL TARTRATE 25 MG TABLET PO SCH (11:32)
[2016-12-31] MEDS: FLUTICASONE NASAL SPRAY 50 MCG/SPRY 120 SPRAY/16 GM NASL SCH (11:33)
[2016-12-31] MEDS: BUDESONIDE/FORMOTEROL 160-4.5 MCG 60 PUFF/6 GM MDI IH SCH (11:33)
--- NOTE | 2016-12-31 12:08 | PDOC CONSULTATION ---
Consultation Consult Date: 12/30/16 Attending physician:: RADHA HUBER Consult reason:: Chest pain History of Present Illness Admission Date/PCP: 12/29/16 16:11 Patient complains of: Chest pain History of Present Illness: SHANAE TSANG JR is a 61 year old male presents with complaint of chest pain for the last 2 days. Pt states that he was concerned that he had another PE. Pt states that his chest pain is occurring at rest. Pt states that he has not had any trauma. Pt states that he has been coughing at home for a few days. states that he has had some wheezing at time but now for the last 2 days. ER states that CTA of chest demonstrated no PE and ultrasound of lower ext no DVT. On confronting, patient did admit to using cocaine. Patient denied any prior history of myocardial infarction, angina or congestive heart failure. Patient was actually sent for a nuclear stress test this morning which had to be canceled because of chest pain, 4 out of 5 in the lab. Subsequently a consultation was written for me to evaluate patient. Patient claims chest pain now to be intermittent and improved. This history was reviewed, supplemented and confirmed. Past Medical History Cardiac Medical History: Reports: Atrial Fibrillation, Hyperlipidema, Hypertension, Pulmonary Embolism Denies: Coronary Artery Disease, Myocardial Infarction, Peripheral Vascular Disease, Heart Murmur Pulmonary Medical History: Reports: Asthma, Chronic Obstructive Pulmonary Disease (COPD), Pneumonia - 7 years ago, Sleep Apnea - hx only, not a current problem, no CPAP, Tuberculosis Denies: Bronchitis, Respiratory Failure Neurological Medical History: Endocrine Medical History: Reports: Diabetes Mellitus Type 2 Denies: Hyperthyroidism, Hypothyroidism Renal/ Medical History: Denies: End Stage Renal Disease Malignancy Medical History: Denies: Lung Cancer GI Medical History: Reports: Gastroesophageal Reflux Disease, Hepatitis - Hep C Denies: Crohn's Disease, Hiatal Hernia Musculoskeltal Medical History: Reports: Arthritis Denies: Fibromyalgia Psychiatric Medical History: Denies: Bipolar Disorder, Dementia, Depression, Post Traumatic Stress Disorder Past Surgical History Past Surgical History: Reports: Appendectomy, Herniorrhaphy, Orthopedic Surgery - Spinal fusion. Meniscus repair. Denies: Cholecystectomy, Colostomy, Coronary Artery Bypass Graft, Gastric Bypass Surgery, Pacemaker, Tonsillectomy Social History Information Source: Patient Smoking Status: Never Smoker Frequency of Alcohol Use: None Hx Recreational Drug Use: No Drugs: Cocaine - Patient admitted to cocaine use when confronted Hx Prescription Drug Abuse: No - Advance Directive Resuscitation Status: Full Code Surrogate healthcare decision maker:: Patient spouse is the surrogate decision-maker Family History Family History: Arthritis, CAD - Mother and brother, CVA, DM, Hyperlipidemia, Hypertension, Malignancy Parental Family History Reviewed: Yes Children Family History Reviewed: Yes Sibling(s) Family History Reviewed.: Yes Medication/Allergy Home Medications: Albuterol Sulfate [Proair HFA] 2 puff IH Q6HP PRN 12/29/16 Amitriptyline HCl [Elavil 75 mg Tablet] 75 mg PO QHS 12/29/16 Amlodipine Besylate [Norvasc 10 mg Tablet] 10 mg PO DAILY 12/29/16 Apixaban [Eliquis 5 mg Tablet] 5 mg PO Q12 12/29/16 Ascorbic Acid [Vitamin C 500 mg Tablet] 500 mg PO DAILY 12/29/16 Aspirin [Ecotrin 81 mg EC Tablet] 81 mg PO DAILY 12/29/16 Budesonide/Formoterol Fumarate [Symbicort 160-4.5 Mcg Inhaler] 2 puff IH Q12 Ferrous Sulfate [Iron] 325 mg PO DAILY 12/29/16 Fluticasone Propionate [Flonase Nasal Lilburn 50 Mcg/[place] 16 gm] 1 spray NASL Q12 12/29/16 Gabapentin [Neurontin 100 mg Capsule] 100 mg PO Q8 12/29/16 Hydrochlorothiazide [Hydrodiuril 25 mg Tablet] 25 mg PO DAILY 12/29/16 Insulin Aspart [Novolog Flexpen] 18 units SQ [id number] 12/29/16 Insulin Aspart [Novolog Flexpen] 25 units SQ BIDACLS 12/29/16 Insulin Glargine,Hum.rec.anlog [Lantus Solostar] 60 units SQ QHS 12/29/16 Metformin HCl [Glucophage] 1,000 mg PO BID 12/29/16 Metoprolol Tartrate [Lopressor 25 mg Tablet] 25 mg PO Q12 12/29/16 Naproxen [Naprosyn 250 mg Tablet] 500 mg PO Q12HP PRN 12/29/16 Omeprazole 40 mg PO DAILY 12/29/16 Pravastatin Sodium [Pravachol] 20 mg PO QHS 12/29/16 Ranitidine HCl [Zantac 150 mg Tablet] 150 mg PO QHS 12/29/16 Sildenafil Citrate [Viagra] 100 mg PO ASDIR PRN 12/29/16 Terazosin HCl [Hytrin] 4 mg PO QHS 12/29/16 Tiotropium Rumsey [Spiriva] 1 cap IH DAILY 12/29/16 Tramadol HCl [Ultram 50 mg Tablet] 50 mg PO Q8 12/29/16 Allergies/Adverse Reactions: codeine [Codeine] Allergy (Severe, Verified 12/29/16 10:26) Facial swelling hydrocodone bitartrate [From Vicodin] Allergy (Severe, Verified 12/29/16 10:26) Anaphylaxis lisinopril Allergy (Severe, Verified 12/29/16 10:26) Anaphylaxis hydromorphone [From Dilaudid] Allergy (Verified 12/29/16 10:26) Difficulty breathing morphine Allergy (Verified 12/29/16 10:26) Itching oxycodone Allergy (Verified 12/29/16 10:26) Swelling of tongue Review of Systems Review of Systems: Please see history of present illness and past medical history as wall. Constitutional: No fever or chills reported. Head : No recent chronic headaches, recent head injury. Eyes: No recent eye pain, diplopia, redness, discharge, acute visual changes. Ears: No recent chronic ear pain, acute hearing loss, ear discharge. Oral cavity: No recent ulcerations, bleeding, oral cavity discomfort. Neck: No recent acute neck pain reported. Hematologic: No recent easy bruising or bleeding or hematologic malignancy reported. Lymphatic: No recent lymphatic malignancy, chronic lymphadenopathy reported yet Cardiovascular system review: See history of present illness. Respiratory system review: No recent chronic cough, hemoptysis. Positive blood clots in the lungs reported. Mild Shortness of breath on exertion Gastrointestinal system review: Negative for any recent acute or chronic abdominal pain, hematemesis, melena, recent change in bowel habits. Genitourinary system review: No recent acute or chronic hematuria, flank pain, UTI etc. reported. Skin system review: Negative for any recent abnormal bruising, no rash, no pruritus reported. Neurologic: No prior history of strokes, mini strokes, seizure disorder. Psychologic: No history of major psychosis or major depression reported. Musculoskeletal: No acute joint swelling reported. Significant problem with bilateral knee pain. Endocrine: No recent polyuria, polydipsia, recent heat or cold intolerance. Physical Exam Vital Signs: Temp Pulse Resp BP Pulse Ox 98.4 F 113 H 20 133/84 H 98 12/30/16 17:00 12/30/16 17:00 12/30/16 17:00 12/30/16 17:00 12/30/16 17:00 Intake & Output 12/29/16 12/30/16 12/31/16 06:59 06:59 06:59 Intake Total 800 363 Output Total 600 560 Balance 200 -197 Weight 135.4 kg Exam: GENERAL: well-nourished and in no acute distress. Alert and oriented x3 HEAD: Atraumatic, normocephalic. EYES: Pupils equal round and reactive to light, extraocular movements intact, sclera anicteric, conjunctiva are normal. ENT: TMs normal, nares patent, oropharynx clear without exudates. Moist mucous membranes. No oral ulcerations or bleeding gums noted NECK: supple without lymphadenopathy. Trachea is central. No cervical or axillary lymphadenopathy noted. Carotids are 2+, JVD WNL LUNGS: Respiration seems nonlabored, no significant accessory muscle action noted. Breath sounds clear to auscultation bilaterally and equal noted. No wheezes rales or rhonchi noted. No significant dullness noted on percussion. CHEST: Palpation of the chest wall shows chest wall tenderness. No other significant abnormalities noted. 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 ABDOMEN: Soft, no significant tenderness appreciated, normoactive bowel sounds. No guarding, no rebound. No rigidity noted . No masses appreciated. EXTREMITIES: Pedal pulses are 1-2+, no calf tenderness noted. No clubbing or cyanosis.trace to 1+ pedal edema noted NEUROLOGICAL: Focused neurological exam showed no significant neurologic deficit. Normal speech, no focal weakness appreciated. PSYCH: Normal mood, normal affect. Judgment and insight within normal limits. SKIN: No significant ecchymosis, rash, ulcerations or signs of pruritus noted. MUSCULOSKELETAL EXAM: No significant joint swelling noted. Results Laboratory Results: 12/30/16 08:25 12/30/16 08:25 12/30/16 12/30/16 08:25 08:25 WBC 7.2 RBC 5.04 Hgb 14.8 Hct 44.0 MCV 87 MCH 29.4 MCHC 33.7 RDW 14.6 H Plt Count 137 L Seg Neutrophils % 68.0 Lymphocytes % 21.2 Monocytes % 9.1 Eosinophils % 1.4 Basophils % 0.3 Absolute Neutrophils 4.9 Absolute Lymphocytes 1.5 Absolute Monocytes 0.7 Absolute Eosinophils 0.1 Absolute Basophils 0.0 Sodium 140.5 Potassium 4.3 Chloride 99 Carbon Dioxide 31 H Anion Gap 11 BUN 8 Creatinine 0.75 Est GFR ( Amer) > 60 Est GFR (Non-Af Amer) > 60 Glucose 149 H Calcium 9.6 Triglycerides 76 Cholesterol 169.21 LDL Cholesterol Direct 63 VLDL Cholesterol 15.0 HDL Cholesterol 84 12/29/16 12/29/16 12/30/16 20:00 20:00 01:57 Creatine Kinase 118 129 Troponin I < 0.012 12/30/16 12/30/16 12/30/16 01:57 08:25 08:25 Creatine Kinase 137 Troponin I < 0.012 < 0.012 EKG Comments: Sinus tachycardia, minor nonspecific ST segment changes Impressions: Chest X-Ray 12/29/16 10:55 IMPRESSION: 1. Borderline cardiomegaly. There is no failure. 2. Possible medial right lung base mass. Consider CT. Chest/Abdomen CTA 12/29/16 13:15 IMPRESSION: 1. No major pulmonary emboli are seen. The study is quite limited. 2. Stable right adrenal nodule. 3. Venous collaterals on the upper right chest indicating right upper extremity venous occlusion. Assessment & Plan - Diagnosis (1) Chest pain Qualifiers: Chest pain type: unspecified Qualified Code(s): R07.9 - Chest pain, unspecified Is this a current diagnosis for this admission?: Yes (2) Cocaine abuse Is this a current diagnosis for this admission?: Yes (3) COPD (chronic obstructive pulmonary disease) Qualifiers: COPD type: unspecified COPD Qualified Code(s): J44.9 - Chronic obstructive pulmonary disease, unspecified Is this a current diagnosis for this admission?: Yes (4) Diabetes Qualifiers: Diabetes mellitus type: type 2 Diabetes mellitus complication status: with diabetic arthropathy Diabetes mellitus complication detail: with other arthropathy Diabetes mellitus ad terminal makeup operator insulin use: with ad terminal makeup operator use Qualified Code(s): E11.618 - Type 2 diabetes mellitus with other diabetic arthropathy Is this a current diagnosis for this admission?: Yes (5) Pulmonary embolism Qualifiers: Chronicity: unspecified Acute cor pulmonale presence: without acute cor pulmonale Is this a current diagnosis for this admission?: No - Notes Notes: Chest pain: Patient does have abnormal EKG. So far cardiac enzymes are negative. Believe that patient will benefit from a nuclear stress test and this will be scheduled. Patient is noted to have coronary calcification on CTA therefore does have coronary artery disease. Will recommend empiric statin therapy. Cocaine abuse: Patient has been advised to quit using cocaine. Patient understands increased risk of stroke and heart attack with cocaine abuse. COPD: Currently is stable. Continue current management plans. Diabetes: Glycohemoglobin is elevated in the diabetes range. Recommend good control but avoid hyper or hypoglycemia. History of pulmonary embolism: This was ruled out by CTA. Hypertension: Reasonably well controlled. Blood pressure goal in this patient is 135/85 or less. This was discussed with the patient. Currently blood pressure under reasonable control. discussed side effects of uncontrolled hypertension and also severe hypotension. Coronary artery disease: Patient noted to have coronary calcification. To be evaluated further with a nuclear stress test. 2D echo was ordered for risk stratification. - Time Time Spent: 30 to 50 Minutes - CODE STATUS was discussed, patient remains full code. Surrogate decision-maker unchanged. Multiple medical problems were addressed. More than 50% of the time spent coordinating care, discussing management plans with involved caregivers. Management plans discussed with involved personnels. Medical decision making was of moderate to high complexity , patient's has multiple comorbidities. Medications reviewed and adjusted accordingly: Yes
--- NOTE | 2016-12-31 12:13 | PDOC PROGRESS REPORT ---
Subjective Progress Note for:: 12/31/16 Subjective:: Patient seems to be doing better with gradual improvement. Pt is denying any chest arm or neck discomfort. Patient denying any PND, orthopnea. Patient denied any sustained palpitations, dizziness, syncope, near syncope. Patient denying any fever chills. Patient denying any other significant discomfort. Patient is maintaining sinus rhythm. 2D echo results discussed. Nuclear stress test risk benefits were discussed. Informed consent obtained. Review of systems: Rest review of systems negative. Medications: Medications have been reviewed. Patient spouse in the room. Patient does have history of loud habitual snoring , daytime fatigue and sleepiness. Physical Exam Vital Signs: Temp Pulse Resp BP Pulse Ox 98.5 F 117 H 19 123/80 99 12/31/16 11:22 12/31/16 11:22 12/31/16 11:22 12/31/16 11:22 12/31/16 11:22 Intake & Output 12/30/16 12/31/16 01/01/17 06:59 06:59 06:59 Intake Total 800 363 Output Total 600 560 Balance 200 -197 Weight 135.4 kg 132.8 kg Exam: GENERAL: well-nourished and in no acute distress. Alert and oriented x3 HEAD: Atraumatic, normocephalic. EYES: Pupils equal round and reactive to light, extraocular movements intact, sclera anicteric, conjunctiva are normal. ENT: TMs normal, nares patent, oropharynx clear without exudates. Moist mucous membranes. No oral ulcerations or bleeding gums noted NECK: supple without lymphadenopathy. Trachea is central. No cervical or axillary lymphadenopathy noted. Carotids are 2+, JVD WNL LUNGS: Respiration seems nonlabored, no significant accessory muscle action noted. Breath sounds clear to auscultation bilaterally and equal noted. No wheezes rales or rhonchi noted. No significant dullness noted on percussion. CHEST: Palpation of the chest wall shows mild chest wall tenderness. No other significant abnormalities noted. 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 ABDOMEN: Soft, no significant tenderness appreciated, normoactive bowel sounds. No guarding, no rebound. No rigidity noted . No masses appreciated. EXTREMITIES: Pedal pulses are 1-2+, no calf tenderness noted. No clubbing or cyanosis.trace to 1+ pedal edema noted NEUROLOGICAL: Focused neurological exam showed no significant neurologic deficit. Normal speech, no focal weakness appreciated. PSYCH: Normal mood, normal affect. Judgment and insight within normal limits. SKIN: No significant ecchymosis, rash, ulcerations or signs of pruritus noted. MUSCULOSKELETAL EXAM: No significant joint swelling noted. Results Laboratory Results: 12/31/16 04:57 12/31/16 04:57 12/31/16 12/31/16 04:57 04:57 WBC 7.9 RBC 4.94 Hgb 14.3 Hct 43.1 MCV 87 MCH 29.0 MCHC 33.3 RDW 15.1 H Plt Count 137 L Seg Neutrophils % 66.5 Lymphocytes % 20.0 Monocytes % 11.6 Eosinophils % 1.4 Basophils % 0.5 Absolute Neutrophils 5.2 Absolute Lymphocytes 1.6 Absolute Monocytes 0.9 Absolute Eosinophils 0.1 Absolute Basophils 0.0 Sodium 139.9 Potassium 4.4 Chloride 100 Carbon Dioxide 32 H Anion Gap 8 BUN 13 Creatinine 0.73 Est GFR ( Amer) > 60 Est GFR (Non-Af Amer) > 60 Glucose 155 H Calcium 9.0 12/29/16 12/29/16 12/30/16 20:00 20:00 01:57 Creatine Kinase 118 129 Troponin I < 0.012 12/30/16 12/30/16 12/30/16 01:57 08:25 08:25 Creatine Kinase 137 Troponin I < 0.012 < 0.012 Impressions: Chest X-Ray 12/29/16 10:55 IMPRESSION: 1. Borderline cardiomegaly. There is no failure. 2. Possible medial right lung base mass. Consider CT. Chest/Abdomen CTA 12/29/16 13:15 IMPRESSION: 1. No major pulmonary emboli are seen. The study is quite limited. 2. Stable right adrenal nodule. 3. Venous collaterals on the upper right chest indicating right upper extremity venous occlusion. Assessment & Plan - Diagnosis (1) Chest pain Qualifiers: Chest pain type: unspecified Qualified Code(s): R07.9 - Chest pain, unspecified Is this a current diagnosis for this admission?: Yes (2) Cocaine abuse Is this a current diagnosis for this admission?: Yes (3) COPD (chronic obstructive pulmonary disease) Qualifiers: COPD type: unspecified COPD Qualified Code(s): J44.9 - Chronic obstructive pulmonary disease, unspecified Is this a current diagnosis for this admission?: Yes (4) Diabetes Qualifiers: Diabetes mellitus type: type 2 Diabetes mellitus complication status: with diabetic arthropathy Diabetes mellitus complication detail: with other arthropathy Diabetes mellitus ad terminal makeup operator insulin use: with ad terminal makeup operator use Qualified Code(s): E11.618 - Type 2 diabetes mellitus with other diabetic arthropathy; Z79.4 - rn long term care (current) use of insulin Is this a current diagnosis for this admission?: Yes (5) Pulmonary embolism Qualifiers: Chronicity: unspecified Acute cor pulmonale presence: without acute cor pulmonale Is this a current diagnosis for this admission?: No (6) Sleep disorder breathing Is this a current diagnosis for this admission?: Yes (7) Obesity Qualifiers: Obesity type: unspecified obesity type Body mass index: unspecified BMI Is this a current diagnosis for this admission?: Yes - Notes Notes: Chest pain: Patient does have abnormal EKG. So far cardiac enzymes are negative. Patient is noted to have coronary calcification on CTA therefore does have coronary artery disease. Will recommend empiric statin therapy. 2D echo shows normal LVEF with moderate LVH. No significant stenotic or regurgitant valvular lesions noted. Patient did undergo nuclear stress test at the time of dictation. No complications were noted. Final report is pending. Cocaine abuse: Patient has been advised to quit using cocaine. Patient understands increased risk of stroke and heart attack with cocaine abuse. COPD: Currently is stable. Continue current management plans. Diabetes: Glycohemoglobin is elevated in the diabetes range. Recommend good control but avoid hyper or hypoglycemia. History of pulmonary embolism: This was ruled out by CTA. Hypertension: Reasonably well controlled. Blood pressure goal in this patient is 135/85 or less. This was discussed with the patient. Currently blood pressure under reasonable control. discussed side effects of uncontrolled hypertension and also severe hypotension. Coronary artery disease: Patient noted to have coronary calcification. Patient advised aggressive risk factor modification. Sleep disordered breathing: This is strongly suspected. Patient advised to undergo sleep study as an outpatient. Obesity: Patient advised in weight loss. Addendum: Nuclear stress test results were discussed with the patient. It was felt that nuclear stress test was relatively low risk and that aggressive risk factor modification and medical management is the best option at this time. Should patient have recurrent chest pain then cardiac catheterization and close cardiology follow-up is being recommended. Discussed with the patient discussed with hospitalist. Patient is likely to be discharged afterwards. He has my card and can follow-up with me if he wishes. - Time Time with patient: Greater than 35 minutes - CODE STATUS was discussed, patient remains full code. Surrogate decision-maker unchanged. Multiple medical problems were addressed. More than 50% of the time spent coordinating care, discussing management plans with involved caregivers. Management plans discussed with involved personnels. Medical decision making was of moderate to high complexity, patient's has multiple comorbidities. Approximately 40 minutes spent discussing proper management of above entered diagnosis. Aggressive risk factor modification discussed. 2D echo results discussed. Medications reviewed and adjusted accordingly: Yes
--- NOTE | 2016-12-31 14:20 | PDOC PROGRESS REPORT ---
Subjective Progress Note for:: 12/31/16 Subjective:: Pt states that he is not having chest pain currently. Physical Exam Vital Signs: Temp Pulse Resp BP Pulse Ox 98.5 F 98 18 123/80 95 12/31/16 11:22 12/31/16 13:46 12/31/16 13:46 12/31/16 11:22 12/31/16 13:46 Intake & Output 12/30/16 12/31/16 01/01/17 06:59 06:59 06:59 Intake Total 800 363 Output Total 600 560 Balance 200 -197 Weight 135.4 kg 132.8 kg General appearance: PRESENT: no acute distress, well-developed, well-nourished Head exam: PRESENT: atraumatic, normocephalic Eye exam: PRESENT: conjunctiva pink, EOMI, PERRLA. ABSENT: scleral icterus Ear exam: PRESENT: normal external ear exam Mouth exam: PRESENT: moist, tongue midline Neck exam: ABSENT: carotid bruit, JVD, lymphadenopathy, thyromegaly Respiratory exam: PRESENT: clear to auscultation angelina. ABSENT: rales, rhonchi, wheezes Pulses: PRESENT: normal dorsalis pedis pul Vascular exam: PRESENT: normal capillary refill GI/Abdominal exam: PRESENT: normal bowel sounds, soft. ABSENT: distended, guarding, mass, organolmegaly, rebound, tenderness Rectal exam: PRESENT: deferred Extremities exam: PRESENT: full ROM. ABSENT: calf tenderness, clubbing, pedal edema Neurological exam: PRESENT: alert, awake, oriented to person, oriented to place , oriented to time, oriented to situation, CN II-XII grossly intact. ABSENT: motor sensory deficit Psychiatric exam: PRESENT: appropriate affect, normal mood. ABSENT: homicidal ideation, suicidal ideation Skin exam: PRESENT: dry, intact, warm. ABSENT: cyanosis, rash Results Laboratory Results: 12/31/16 04:57 12/31/16 04:57 12/31/16 12/31/16 04:57 04:57 WBC 7.9 RBC 4.94 Hgb 14.3 Hct 43.1 MCV 87 MCH 29.0 MCHC 33.3 RDW 15.1 H Plt Count 137 L Seg Neutrophils % 66.5 Lymphocytes % 20.0 Monocytes % 11.6 Eosinophils % 1.4 Basophils % 0.5 Absolute Neutrophils 5.2 Absolute Lymphocytes 1.6 Absolute Monocytes 0.9 Absolute Eosinophils 0.1 Absolute Basophils 0.0 Sodium 139.9 Potassium 4.4 Chloride 100 Carbon Dioxide 32 H Anion Gap 8 BUN 13 Creatinine 0.73 Est GFR ( Amer) > 60 Est GFR (Non-Af Amer) > 60 Glucose 155 H Calcium 9.0 12/29/16 12/29/16 12/30/16 20:00 20:00 01:57 Creatine Kinase 118 129 Troponin I < 0.012 12/30/16 12/30/16 12/30/16 01:57 08:25 08:25 Creatine Kinase 137 Troponin I < 0.012 < 0.012 Impressions: Chest X-Ray 12/29/16 10:55 IMPRESSION: 1. Borderline cardiomegaly. There is no failure. 2. Possible medial right lung base mass. Consider CT. Chest/Abdomen CTA 12/29/16 13:15 IMPRESSION: 1. No major pulmonary emboli are seen. The study is quite limited. 2. Stable right adrenal nodule. 3. Venous collaterals on the upper right chest indicating right upper extremity venous occlusion. Assessment & Plan - Diagnosis (1) Chest pain Qualifiers: Chest pain type: unspecified Qualified Code(s): R07.9 - Chest pain, unspecified Is this a current diagnosis for this admission?: Yes Plan: + Cocaine Positive and reproducible left sided chest wall pain. Nuclear Stress test results pending. (2) Cocaine abuse Is this a current diagnosis for this admission?: Yes Plan: Pt tested positive for cocaine during this admission. (3) Musculoskeletal chest pain Is this a current diagnosis for this admission?: Yes Plan: Left side chest wall tenderness and left sternal tenderness to palpation. (4) Thrombosis Is this a current diagnosis for this admission?: Yes Plan: Superficial Venous Right Upper Ext: Supportive Care. (5) COPD (chronic obstructive pulmonary disease) Qualifiers: COPD type: unspecified COPD Qualified Code(s): J44.9 - Chronic obstructive pulmonary disease, unspecified Is this a current diagnosis for this admission?: Yes Plan: PRN Breathing treatments. 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 (7) DVT prophylaxis Is this a current diagnosis for this admission?: Yes Plan: Brookequjulissa - Time Time Spent with patient: 15-24 minutes - Will discharge home once results of Nuclear stress test known.
--- NOTE | 2016-12-31 14:51 | DRAGON STRESS TEST REPORT ---
INTRAVENOUS LEXISCAN CARDIOLITE STRESS TEST USING SINGLE PHOTON EMMISION COMPUTERIZED TOMOGRAPHIC. DATE OF PROCEDURE: December 31, 2016 INDICATION : Chest pain CARDIAC RISK FACTORS: Diabetes, hypertension, dyslipidemia, family history of CAD RESTING EKG: Sinus rhythm with minor nonspecific ST segment changes STRESS EKG: No significant changes noted with LexiScan bolus REASON FOR TERMINATION: Protocol. PROCEDURE REPORT: Baseline heart rate 111 beats per minute with blood pressure of 120/95. Patient had no significant complaints. Heart rate at 2 minutes post bolus 118 with a blood pressure of 117/82. 3 minutes post bolus heart rate 117 with blood pressure of 126/84. No significant EKG changes were noted. Patient had no significant complaints during the procedure or postprocedure. Patient injected with Aminophyllin 75 mg at 3 minutes or later after Lexiscan bolus. CONCLUSIONS: Normal EKG and hemodynamic response to IV LexiScan. NUCLEAR DATA: At rest the patient was given 14.89 millicuries of technetium 99 sestamibi injected intravenously. As per protocol rest gated SPECT images were obtained. Subsequently the patient was given intravenous LexiScan at a dose of 0.4 mg in 5 mL intravenously, followed by flush with normal saline. Subsequently the stress dose of 47.9 millicuries of technetium 99 sestamibi was injected intravenously. As per protocol stress gated images were obtained. NUCLEAR INTERPRETATION: Both raw and processed data were used for interpretation. Visual, qualitative, computer-generated quantitative data was used. There was good myocardial uptake of technetium compound. Motion artifact and soft tissue attenuations were noted. Increased visceral uptake was noted. No definitive areas of transient perfusion defect noted except for borderline decreased uptake in the mid anterior wall with SDS score of 2. There were no corresponding regional wall motion abnormalities. It is felt to be mostly artifactual but cannot rule out an area of mild ischemia. Clinical correlation is requested. No definitive areas of fixed perfusion defect or scars noted. EKG gated imaging showed LV EF at 40 %, rest and stress gated EF similar visually. T. I D. ratio was 1.29. Lung heart ratio noted to be within normal limits 0.27. No significant extracardiac and abnormal radiotracer activities were noted. RV free wall uptake was noted to be WNL. IMPRESSION: Also refer to comments under nuclear interpretation. Also test results needs to be interpreted in the context of pretest probability. 1. No definitive areas of transient perfusion defect noted except for borderline decreased uptake in the mid anterior wall with SDS score of 2. There were no corresponding regional wall motion abnormalities. It is felt to be mostly artifactual but cannot rule out an area of mild ischemia. Overall risk is on the low side. Recommend medical management and close cardiology follow-up. 2. There is no definitive scintigraphic evidence of myocardial infarction/scar. 3. EKG gated imaging shows left ventricular ejection fraction of approximately 40 %. 4. Borderline transient ischemic dilatation is noted but is felt mostly related to LVH. Clinical correlation requested as occasionally single vessel disease or balanced ischemia could be missed. In approximately 10% of the cases Lexiscan may not cause adequate vasodilatory stress. RECOMMENDATIONS: Aggressive risk factor modification, medical therapy. Clinical correlation with echocardiogram derived ejection fraction. Inability to exercise by itself can lead to increased cardiovascular event risks. Consider cardiology consultation and or follow-up if clinically indicated. I AM AVAILABLE FOR CARDIOLOGY CONSULTATION AND FOLLOWUP IF REQUESTED BY PMD Brad Piper M.D., [employer] Technical [employer] Analyst [employer] program coordinator, Board certified in cardiovascular diseases, Nuclear cardiology, Echocardiography Cardiac CT and cardiac MRI Ph. [phone] [facility]
--- NOTE | 2016-12-31 15:34 | PDOC DISCHARGE SUMMARY ---
General - Admit/Disc Date/PCP Admission Date/Primary Care Provider: 12/29/16 16:11 Discharge Date: 12/31/16 - Discharge Diagnosis (1) Atypical chest pain Is this a current diagnosis for this admission?: Yes Summary: Nuclear stress test neg. Pt noted to be Cocaine positive. (2) Musculoskeletal chest pain Is this a current diagnosis for this admission?: Yes Summary: Supportive care. (3) Cocaine abuse Is this a current diagnosis for this admission?: Yes (4) Thrombosis Is this a current diagnosis for this admission?: Yes (5) Acute bronchitis Is this a current diagnosis for this admission?: Yes Summary: Pt with productive cough at time of admission. Will place on Doxycycline for 7 days. No evidence of COPD exacerbaton. (6) COPD (chronic obstructive pulmonary disease) Is this a current diagnosis for this admission?: Yes Summary: No evidence of COPD exacerbation (7) Diabetes Is this a current diagnosis for this admission?: Yes Summary: Will continue home medications. - Additional Information Resuscitation Status: Full Code Discharge Diet: Cardiac, Diabetic Discharge Activity: Activity As Tolerated Home Medications: Albuterol Sulfate [Proair HFA] 2 puff IH Q6HP PRN 12/29/16 Amitriptyline HCl [Elavil 75 mg Tablet] 75 mg PO QHS 12/29/16 Amlodipine Besylate [Norvasc 10 mg Tablet] 10 mg PO DAILY 12/29/16 Apixaban [Eliquis 5 mg Tablet] 5 mg PO Q12 12/29/16 Ascorbic Acid [Vitamin C 500 mg Tablet] 500 mg PO DAILY 12/29/16 Aspirin [Ecotrin 81 mg EC Tablet] 81 mg PO DAILY 12/29/16 Budesonide/Formoterol Fumarate [Symbicort 160-4.5 Mcg Inhaler] 2 puff IH Q12 Ferrous Sulfate [Iron] 325 mg PO DAILY 12/29/16 Fluticasone Propionate [Flonase Nasal Pandora 50 Mcg/Pandora 16 gm] 1 spray NASL Q12 12/29/16 Gabapentin [Neurontin 100 mg Capsule] 100 mg PO Q8 12/29/16 Hydrochlorothiazide [Hydrodiuril 25 mg Tablet] 25 mg PO DAILY 12/29/16 Insulin Aspart [Novolog Flexpen] 18 units SQ [id number] 12/29/16 Insulin Aspart [Novolog Flexpen] 25 units SQ BIDACLS 12/29/16 Insulin Glargine,Hum.rec.anlog [Lantus Solostar] 60 units SQ QHS 12/29/16 Metformin HCl [Glucophage] 1,000 mg PO BID 12/29/16 Metoprolol Tartrate [Lopressor 25 mg Tablet] 25 mg PO Q12 12/29/16 Naproxen [Naprosyn 250 mg Tablet] 500 mg PO Q12HP PRN 12/29/16 Omeprazole 40 mg PO DAILY 12/29/16 Pravastatin Sodium [Pravachol] 20 mg PO QHS 12/29/16 Ranitidine HCl [Zantac 150 mg Tablet] 150 mg PO QHS 12/29/16 Sildenafil Citrate [Viagra] 100 mg PO ASDIR PRN 12/29/16 Terazosin HCl [Hytrin] 4 mg PO QHS 12/29/16 Tiotropium [place] [Spiriva] 1 cap IH DAILY 12/29/16 Tramadol HCl [Ultram 50 mg Tablet] 50 mg PO Q8 12/29/16 Doxycycline Monohydrate 100 mg PO BID #14 tablet 12/31/16 History of Present Illness History of Present Illness: SHANAE TSANG JR is a 61 year old male presents with complaint of chest pain for the last 2 days. Pt states that he was concerned that he had another PE. Pt states that his chest pain is occurring at rest. Pt states that he has not had any trauma. Pt states that he has been coughing at home for a few days. states that he has had some wheezing at time but now for the last 2 days. ER states that CTA of chest demonstrated no PE and ultrasound of lower ext no DVT. Hospital Course Hospital Course: Patient is a 61-year-old gentleman who presented to our facility with complaint of chest pain. On physical exam patient's chest pain was reproducible. However due to patient being in diabetic and having history of heart problems nuclear stress test was ordered. Patient's nuclear stress test did not demonstrate evidence of ischemia. Cardiology was asked to see patient because first day that stress test was attempted patient was complaining of chest pain which was reproducible. Patient did have a tox screen that was done at this time of admission which was positive for cocaine. Patient had complained of productive cough and therefore was placed on doxycycline at time of discharge. Patient was not wheezing during this hospitalization. Patient was instructed to stop using cocaine, marijuana, or any other street drugs. Physical Exam Vital Signs: Temp Pulse Resp BP Pulse Ox 98.5 F 109 H 18 123/80 95 12/31/16 11:22 12/31/16 14:00 12/31/16 13:46 12/31/16 11:22 12/31/16 13:46 Intake & Output 12/30/16 12/31/16 01/01/17 06:59 06:59 06:59 Intake Total 800 363 550 Output Total 600 560 900 Balance 200 -197 -350 Weight 135.4 kg 132.8 kg General appearance: PRESENT: no acute distress, well-developed, well-nourished Head exam: PRESENT: atraumatic, normocephalic Eye exam: PRESENT: conjunctiva pink, EOMI, PERRLA. ABSENT: scleral icterus Ear exam: PRESENT: normal external ear exam Mouth exam: PRESENT: moist, tongue midline Neck exam: ABSENT: carotid bruit, JVD, lymphadenopathy, thyromegaly Respiratory exam: PRESENT: clear to auscultation angelina. ABSENT: rales, rhonchi, wheezes Cardiovascular exam: PRESENT: RRR. ABSENT: diastolic murmur, rubs, systolic murmur Pulses: PRESENT: normal dorsalis pedis pul GI/Abdominal exam: PRESENT: normal bowel sounds, soft. ABSENT: distended, guarding, mass, organolmegaly, rebound, tenderness Rectal exam: PRESENT: deferred Extremities exam: PRESENT: full ROM. ABSENT: calf tenderness, clubbing, pedal edema Musculoskeletal exam: PRESENT: tenderness - Left-sided chest wall tenderness to palpation Neurological exam: PRESENT: alert, awake, oriented to person, oriented to place , oriented to time, oriented to situation, CN II-XII grossly intact. ABSENT: motor sensory deficit Psychiatric exam: PRESENT: appropriate affect, normal mood. ABSENT: homicidal ideation, suicidal ideation Skin exam: PRESENT: dry, intact, warm. ABSENT: cyanosis, rash Results Laboratory Results: 12/31/16 04:57 12/31/16 04:57 12/31/16 12/31/16 04:57 04:57 WBC 7.9 RBC 4.94 Hgb 14.3 Hct 43.1 MCV 87 MCH 29.0 MCHC 33.3 RDW 15.1 H Plt Count 137 L Seg Neutrophils % 66.5 Lymphocytes % 20.0 Monocytes % 11.6 Eosinophils % 1.4 Basophils % 0.5 Absolute Neutrophils 5.2 Absolute Lymphocytes 1.6 Absolute Monocytes 0.9 Absolute Eosinophils 0.1 Absolute Basophils 0.0 Sodium 139.9 Potassium 4.4 Chloride 100 Carbon Dioxide 32 H Anion Gap 8 BUN 13 Creatinine 0.73 Est GFR ( Amer) > 60 Est GFR (Non-Af Amer) > 60 Glucose 155 H Calcium 9.0 12/29/16 12/29/16 12/30/16 20:00 20:00 01:57 Creatine Kinase 118 129 Troponin I < 0.012 12/30/16 12/30/16 12/30/16 01:57 08:25 08:25 Creatine Kinase 137 Troponin I < 0.012 < 0.012 Impressions: Chest X-Ray 12/29/16 10:55 IMPRESSION: 1. Borderline cardiomegaly. There is no failure. 2. Possible medial right lung base mass. Consider CT. Chest/Abdomen CTA 12/29/16 13:15 IMPRESSION: 1. No major pulmonary emboli are seen. The study is quite limited. 2. Stable right adrenal nodule. 3. Venous collaterals on the upper right chest indicating right upper extremity venous occlusion.
[2016-12-31 15:51] VITALS: BP 125/75
== END 2016-12-31 16:06 | disposition home or self-care (01) ==
LOC: ER 10:08 → UNDOADMOB 15:40 → EH 15:40 → 4W 16:11 → EH 17:03 → 4W 17:03
PROC: 3E0F7GC Introduction of Other Therapeutic Substance into Respiratory Tract, Via Natural or Artificial Opening (ICD-10-PCS; principal; 2016-12-29)
DX: R07.89 Other chest pain (principal); F14.10 Cocaine abuse, uncomplicated; I82.611 Acute embolism and thrombosis of superficial veins of right upper extremity; Z86.711 Personal history of pulmonary embolism; J20.9 Acute bronchitis, unspecified; J44.9 Chronic obstructive pulmonary disease, unspecified; E11.618 Type 2 diabetes mellitus with other diabetic arthropathy; I48.91 Unspecified atrial fibrillation; E78.5 Hyperlipidemia, unspecified; R94.31 Abnormal electrocardiogram [ECG] [EKG]; I25.10 Atherosclerotic heart disease of native coronary artery without angina pectoris; I50.9 Heart failure, unspecified; I11.0 Hypertensive heart disease with heart failure; E66.9 Obesity, unspecified; Z79.899 Other long term (current) drug therapy; Z79.4 Long term (current) use of insulin; Z79.82 Long term (current) use of aspirin; Z86.19 Personal history of other infectious and parasitic diseases; Z90.49 Acquired absence of other specified parts of digestive tract; Z98.890 Other specified postprocedural states; Z82.49 Family history of ischemic heart disease and other diseases of the circulatory system; Z79.02 Long term (current) use of antithrombotics/antiplatelets; Z96.659 Presence of unspecified artificial knee joint; Z87.891 Personal history of nicotine dependence; Z86.73 Personal history of transient ischemic attack (TIA), and cerebral infarction without residual deficits; Z68.39 Body mass index [BMI] 39.0-39.9, adult
CPT/HCPCS: 93005 ×2; 99285; 36415 ×3; 82962 ×3; 82550 ×2; 85025 ×3; 80048 ×2; 80053; 84484 ×2; 80307; 83036; 85379; 80061; 83880; 93971 ×2; 93306; 93017; 71010; 78452; 71275; 93010 ×2; 94640 ×4; G0378 ×4; A9500; J2785; J3490 ×2; J1815 ×5; J0280; J7620 ×3; Q9969

== ENCOUNTER 2017-02-02 04:39 | Emergency (ER) | payer OTHER ==
[2017-02-02] MEDS ORDERED: MAGNESIUM SULFATE/D5W 0 GM/0 ML RTUPB IV ONE (04:51)
[2017-02-02] MEDS ORDERED: METHYLPREDNISOLONE INJ 125 MG/2 ML SDV ONE (04:51)
[2017-02-02] MEDS ORDERED: IPRATROPIUM/ALBUTEROL 0.5-2.5 MG/3 ML AMPUL NEB ONE ×2 (04:51→04:55)
[2017-02-02] MEDS ORDERED: METHYLPREDNISOLONE INJ 125 MG/2 ML SDV IV ONE (04:55)
--- NOTE | 2017-02-02 04:59 | ER Document Report ---
ED Respiratory Problem - General Chief Complaint: Shortness Of Breath Stated Complaint: TROUBLE BREATHING Time Seen by Provider: 02/02/17 04:52 Notes: Patient is a 61-year-old male that comes emergency department for chief complaint of shortness of breath with worsening productive cough with whitish sputum over the past 3 days. He denies fever, chest pain, nausea/vomiting. He has a history of COPD, former smoker, is not on oxygen at home, other past medical history includes type 2 diabetes, hypertension, congestive heart failure. He reports being compliant with his medications. TRAVEL OUTSIDE OF THE [place] IN LAST 30 DAYS: No - Related Data Allergies/Adverse Reactions: codeine [Codeine] Allergy (Severe, Verified 12/29/16 10:26) Facial swelling hydrocodone bitartrate [From Vicodin] Allergy (Severe, Verified 12/29/16 10:26) Anaphylaxis lisinopril Allergy (Severe, Verified 12/29/16 10:26) Anaphylaxis hydromorphone [From Dilaudid] Allergy (Verified 12/29/16 10:26) Difficulty breathing morphine Allergy (Verified 12/29/16 10:26) Itching oxycodone Allergy (Verified 12/29/16 10:26) Swelling of tongue Past Medical History - General Information source: Patient - Social History Smoking Status: Former Smoker Frequency of alcohol use: None Drug Abuse: None Lives with: Family Family History: Arthritis, CAD - Mother and brother, CVA, DM, Hyperlipidemia, Hypertension, Malignancy Patient has suicidal ideation: No Patient has homicidal ideation: No - Past Medical History Cardiac Medical History: Reports: Hx Atrial Fibrillation, Hx Congestive Heart Failure, Hx Hypercholesterolemia, Hx Hypertension, Hx Pulmonary Embolism Denies: Hx Coronary Artery Disease, Hx Heart Attack, Hx Peripheral Vascular Disease, Hx Heart Murmur Pulmonary Medical History: Reports: Hx Asthma, Hx COPD, Hx Pneumonia - 7 years ago, Hx Sleep Apnea - hx only, not a current problem, no CPAP, Hx Tuberculosis Denies: Hx Bronchitis, Hx Respiratory Failure Neurological Medical History: Reports: Hx Cerebrovascular Accident Endocrine Medical History: Reports: Hx Diabetes Mellitus Type 2. Denies: Hx Graves' Disease, Hx Hyperthyroidism, Hx Hypothyroidism Renal/ Medical History: Reports: Hx Kidney Stones - 1981. Denies: Hx Benign Prostatic Hyperplasia, Hx End Stage Renal Disease, Hx Peritoneal Dialysis Malignancy Medical History: Denies Hx Lung Cancer GI Medical History: Reports: Hx Gastroesophageal Reflux Disease, Hx Hepatitis - Hep C, Hx Pancreatitis - 1988, Hx Ulcer. Denies: Hx Crohn's Disease, Hx Hiatal Hernia, Hx Irritable Bowel, Hx Liver Failure Musculoskeltal Medical History: Reports Hx Arthritis, Denies Hx Fibromyalgia, Denies Hx Multiple Sclerosis, Denies Hx Muscular Dystrophy, Reports Hx Musculoskeletal Deformity, Reports Hx Musculoskeletal Trauma Psychiatric Medical History: Denies: Hx Bipolar Disorder, Hx Dementia, Hx Depression, Hx Post Traumatic Stress Disorder, Hx Schizophrenia Traumatic Medical History: Reports: Hx Fractures, Hx Spine Fracture Infectious Medical History: Reports: Hx Hepatitis - Hep C Past Surgical History: Reports: Hx Abdominal Surgery - Hernia repair, bowel resection, Hx Appendectomy, Hx Bowel Surgery - bowel resection 1988, Hx Herniorrhaphy, Hx Oral Surgery, Hx Orthopedic Surgery - Spinal fusion. Meniscus repair.. Denies: Hx Cholecystectomy, Hx Colostomy, Hx Coronary Artery Bypass Graft, Hx Gastric Bypass Surgery, Hx Pacemaker, Hx Tonsillectomy - Immunizations Immunizations up to date: Yes Hx Diphtheria, Pertussis, Tetanus Vaccination: Yes Hx Pneumococcal Vaccination: 04/12/13 Review of Systems - Review of Systems Constitutional: No symptoms reported EENT: No symptoms reported Cardiovascular: No symptoms reported Respiratory: See HPI Gastrointestinal: No symptoms reported Genitourinary: No symptoms reported Male Genitourinary: No symptoms reported Musculoskeletal: No symptoms reported Skin: No symptoms reported Hematologic/Lymphatic: No symptoms reported Neurological/Psychological: No symptoms reported Physical Exam - Vital signs Vitals: Temp Pulse Resp BP Pulse Ox 98.1 F 99 24 H 132/88 H 92 02/02/17 04:44 02/02/17 04:44 02/02/17 04:44 02/02/17 04:44 02/02/17 04:44 Interpretation: Normal - General General appearance: Appears well, Alert In distress: None - HEENT Head: Normocephalic, Atraumatic Eyes: Normal Pupils: PERRL - Respiratory Respiratory status: Tachypnea - mild tachypnea Breath sounds: Decreased air movement, Nonproductive cough - occassional. No: Rales, Rhonchi, Stridor, Wheezing Chest palpation: Normal - Cardiovascular Rhythm: Regular. No: Tachycardia Heart sounds: Normal auscultation, S1 appreciated, S2 appreciated Murmur: No - Abdominal Inspection: Normal Distension: No distension Bowel sounds: Normal Tenderness: Nontender Organomegaly: No organomegaly - Back Back: Normal, Nontender. No: Tender, CVA tenderness - Extremities General upper extremity: Normal inspection, Nontender, Normal color, Normal ROM , Normal temperature General lower extremity: Normal inspection, Nontender, Normal color, Normal ROM , Normal temperature, Normal weight bearing. 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 He is not hypoxic on room air. Mild tachypnea but this resolved after a single DuoNeb treatment. Given Solu-Medrol. Soft abdomen, unremarkable examination otherwise. No fever, unremarkable vital signs otherwise. Chest x-ray unremarkable, CBC, chemistry, cardiac enzymes, BNP all unremarkable despite ongoing symptoms reported for 3 days. No lower extremity edema. Discussed with patient. He is requesting to go home. Patient able to ambulate without any difficulty or significant desaturation. I discussed recommendation of prednisone because of COPD history and frequent exacerbations, he states he does not like taking prednisone and he refuses. I discussed about the benefits and risks of it but he still declines. Patient will be placed on doxycycline because of productive cough, discussed close follow-up recommendations and return precautions. Patient states understanding and agreement. - Vital Signs Vital signs: Temp Pulse Resp BP Pulse Ox 98.1 F 99 12 127/91 H 93 02/02/17 04:44 02/02/17 04:44 02/02/17 05:02 02/02/17 05:02 02/02/17 05:02 - Laboratory Result Diagrams: 02/02/17 05:25 02/02/17 05:25 Laboratory results interpreted by me: 02/02/17 02/02/17 05:25 05:25 RDW 14.9 H Plt Count 117 L Glucose 163 H Direct Bilirubin 0.5 H Discharge - Discharge Clinical Impression: COPD exacerbation, Productive cough Condition: Stable Disposition: HOME, SELF-CARE Additional Instructions: Your workup does not show any concerning abnormalities. Because of the productive cough and your COPD history recommendation is to take the antibiotic as prescribed. You have declined prednisone. Please follow-up closely with your provider. Return to the emergency department immediately if you worsen in any way including difficulty breathing, spiking fever, or any other concerning symptoms. Prescriptions: Doxycycline Hyclate 100 mg PO BID #14 capsule
[2017-02-02 06:26] LABS: ABSOLUTE EOSINOPHILS # (AUTO) 0.1 10^3/uL (0.0-0.6); ABSOLUTE LYMPHOCYTES (AUTO) 1.7 10^3/uL (0.5-4.7); ABSOLUTE MONOCYTES (AUTO) 0.7 10^3/uL (0.1-1.4); ABSOLUTE NEUT (AUTO) 4.7 10^3/uL (1.7-8.2); BASOPHILS % (AUTO) 0.4 % (0-2); EOSINOPHILS % (AUTO) 1.3 % (0-6); HEMATOCRIT 43.9 % (37.9-51.0); HEMOGLOBIN 14.7 g/dL (13.5-17.0); HGB HCT DIFFERENCE 0.2; LYMPHOCYTES % (AUTO) 23.7 % (13-45); MEAN CORPUSCULAR HEMOGLOBIN 29.3 pg (27.0-33.4); MEAN CORPUSCULAR HGB CONC 33.4 g/dL (32.0-36.0); MEAN CORPUSCULAR VOLUME 88 fl (80-97); MONOCYTES % (AUTO) 9.8 % (3-13); RED BLOOD COUNT 5.01 10^6/uL (4.35-5.55); RED CELL DISTRIBUTION WIDTH 14.9 % (11.5-14.0); SEGMENTED NEUTROPHILS % (AUTO) 64.8 % (42-78); WHITE BLOOD COUNT 7.2 10^3/uL (4.0-10.5)
--- NOTE | 2017-02-02 06:26 | RADIOLOGY REPORT (SQ) ---
EXAM DESCRIPTION: CHEST SINGLE VIEW COMPLETED DATE/TIME: 02/02/2017 5:44 am REASON FOR STUDY: shortness of breath COMPARISON: 12/29/2016. CT, 12/29/2016. EXAM PARAMETERS: NUMBER OF VIEWS: One view. TECHNIQUE: Single frontal radiographic view of the chest acquired. RADIATION DOSE: NA LIMITATIONS: None. FINDINGS: LUNGS AND PLEURA: No opacities, masses or pneumothorax. No pleural effusion. Moderate shailesh g volume. Prominent cardiophrenic fat. Stable. MEDIASTINUM AND HILAR STRUCTURES: No masses. Contour normal. HEART AND VASCULAR STRUCTURES: Heart normal in size. Normal vasculature. BONES: No acute findings. HARDWARE: None in the chest. OTHER: No other significant finding. IMPRESSION: No acute cardiopulmonary findings. TECHNICAL DOCUMENTATION: JOB ID: [id number]
[2017-02-02 06:42] LABS: ALANINE AMINOTRANSFERASE 30 U/L (21-72); ALBUMIN 4.3 g/dL (3.5-5.0); ALKALINE PHOSPHATASE 105 U/L (38-126); ANION GAP 12 (5-19); ASPARTATE AMINO TRANSFERASE 40 U/L (17-59); BILIRUBIN,DIRECT 0.5 mg/dL (0.0-0.4); BILIRUBIN,TOTAL 0.6 mg/dL (0.2-1.3); BLOOD UREA NITROGEN 14 mg/dL (7-20); CALCIUM 9.2 mg/dL (8.4-10.2); CARBON DIOXIDE 27 mmol/L (22-30); CHLORIDE 102 mmol/L (98-107); CREATINE KINASE 134 U/L (55-170); GLUCOSE 163 mg/dL (75-110); POTASSIUM 4.5 mmol/L (3.6-5.0); SODIUM 141.2 mmol/L (137-145); TOTAL PROTEIN 7.7 g/dL (6.3-8.2)
[2017-02-02 06:54] LABS: CREATINE KINASE MB 1.17 ng/mL (<4.55); TROPONIN I < 0.012 ng/mL
[2017-02-02 07:41] VITALS: BP 125/80
--- NOTE | 2017-02-02 08:03 | EKG REPORT ---
SEVERITY:- ABNORMAL ECG - SINUS RHYTHM PROBABLE LEFT ATRIAL ABNORMALITY CONSIDER POSTERIOR INFARCT BORDERLINE T ABNORMALITIES, INFERIOR LEADS : Confirmed by: Brad Piper 02-Feb-2017 08:02:46
== END 2017-02-02 07:39 | disposition home or self-care (01) ==
LOC: ER 04:39
DX: J44.1 Chronic obstructive pulmonary disease with (acute) exacerbation (principal); R05 Cough; R06.02 Shortness of breath; Z87.891 Personal history of nicotine dependence
CPT/HCPCS: 93005; 99285; 36415; 87040; 82553; 82550; 85025; 80053; 84484; 83880; 71010; 93010; J2930; J7620

== ENCOUNTER 2017-03-26 05:41 | Inpatient (IN) | payer OTHER ==
[2017-03-26] MEDS ORDERED: IPRATROPIUM/ALBUTEROL 0.5-2.5 MG/3 ML AMPUL NEB ONE (05:52)
--- NOTE | 2017-03-26 06:04 | ER Document Report ---
ED Medical Screen (RME) - General Chief Complaint: Shortness Of Breath Stated Complaint: TROUBLE BREATHING Mode of Arrival: Ambulatory Information source: Patient Notes: 61-year-old ex-smoker with history of COPD, congestive heart failure, diabetes woke up with shortness of breath. They used 2 nebulizer treatments at home which did not help. He was intubated recently and [facility] for angioedema and he feels like he might have pneumonia. No fever. No productive cough. No swelling. His pulse ox is normally 94-95%. PCT came to get me because his tongue is swelling, same as when they had to intubate him. Dr. Oliva is now in the room. TRAVEL OUTSIDE OF THE [place] IN LAST 30 DAYS: No - Related Data Allergies/Adverse Reactions: codeine [Codeine] Allergy (Severe, Verified 12/29/16 10:26) Facial swelling hydrocodone bitartrate [From Vicodin] Allergy (Severe, Verified 12/29/16 10:26) Anaphylaxis lisinopril Allergy (Severe, Verified 12/29/16 10:26) Anaphylaxis hydromorphone [From Dilaudid] Allergy (Verified 12/29/16 10:26) Difficulty breathing morphine Allergy (Verified 12/29/16 10:26) Itching oxycodone Allergy (Verified 12/29/16 10:26) Swelling of tongue Past Medical History - Past Medical History Cardiac Medical History: Reports: Hx Atrial Fibrillation, Hx Congestive Heart Failure, Hx Hypercholesterolemia, Hx Hypertension, Hx Pulmonary Embolism Denies: Hx Coronary Artery Disease, Hx Heart Attack, Hx Peripheral Vascular Disease, Hx Heart Murmur Pulmonary Medical History: Reports: Hx Asthma, Hx COPD, Hx Pneumonia - 7 years ago, Hx Sleep Apnea - hx only, not a current problem, no CPAP, Hx Tuberculosis Denies: Hx Bronchitis, Hx Respiratory Failure Neurological Medical History: Reports: Hx Cerebrovascular Accident Endocrine Medical History: Reports: Hx Diabetes Mellitus Type 2. Denies: Hx Graves' Disease, Hx Hyperthyroidism, Hx Hypothyroidism Renal/ Medical History: Reports: Hx Kidney Stones - 1981. Denies: Hx Benign Prostatic Hyperplasia, Hx End Stage Renal Disease, Hx Peritoneal Dialysis Malignancy Medical History: Denies Hx Lung Cancer GI Medical History: Reports: Hx Gastroesophageal Reflux Disease, Hx Hepatitis - Hep C, Hx Pancreatitis - 1988, Hx Ulcer. Denies: Hx Crohn's Disease, Hx Hiatal Hernia, Hx Irritable Bowel, Hx Liver Failure Musculoskeltal Medical History: Reports Hx Arthritis, Denies Hx Fibromyalgia, Denies Hx Multiple Sclerosis, Denies Hx Muscular Dystrophy, Reports Hx Musculoskeletal Deformity, Reports Hx Musculoskeletal Trauma Psychiatric Medical History: Denies: Hx Bipolar Disorder, Hx Dementia, Hx Depression, Hx Post Traumatic Stress Disorder, Hx Schizophrenia Traumatic Medical History: Reports: Hx Fractures, Hx Spine Fracture Infectious Medical History: Reports: Hx Hepatitis - Hep C Past Surgical History: Reports: Hx Abdominal Surgery - Hernia repair, bowel resection, Hx Appendectomy, Hx Bowel Surgery - bowel resection 1988, Hx Herniorrhaphy, Hx Oral Surgery, Hx Orthopedic Surgery - Spinal fusion. Meniscus repair.. Denies: Hx Cholecystectomy, Hx Colostomy, Hx Coronary Artery Bypass Graft, Hx Gastric Bypass Surgery, Hx Pacemaker, Hx Tonsillectomy - Immunizations Immunizations up to date: Yes Hx Diphtheria, Pertussis, Tetanus Vaccination: Yes History of Influenza Vaccine for 01/2017 - 06/2017 Season: No Physical Exam - Vital signs Vitals: Temp Pulse Resp BP Pulse Ox 98.3 F 117 H 28 H 125/89 H 92 03/26/17 05:43 03/26/17 05:43 03/26/17 05:43 03/26/17 05:43 03/26/17 05:43 Course - Vital Signs Vital signs: Temp Pulse Resp BP Pulse Ox 98.3 F 117 H 28 H 125/89 H 92 03/26/17 05:43 03/26/17 05:43 03/26/17 05:43 03/26/17 05:43 03/26/17 05:43
[2017-03-26] MEDS ORDERED: METHYLPREDNISOLONE INJ 125 MG/2 ML SDV IV ONE (06:05)
[2017-03-26] MEDS ORDERED: EPINEPHRINE INJ/PF 1 MG/1 ML AMPULE IM ONE ×4 (06:06→06:40)
[2017-03-26] MEDS ORDERED: DIPHENHYDRAMINE HCL 50 MG/ML VIAL IM ONE (06:06)
[2017-03-26] MEDS ORDERED: FAMOTIDINE INJ/PF 20 MG/2 ML SDV IV ONE (06:07)
[2017-03-26] MEDS ORDERED: NORMAL SALINE 1000 ML 1,000 ML IV ONE (06:08)
[2017-03-26] MEDS ORDERED: TRANEXAMIC ACID INJ/PF 1,000 MG/10 ML SDV IV ONE (06:10)
[2017-03-26] MEDS ORDERED: DIPHENHYDRAMINE HCL 50 MG/ML VIAL IV ONE (06:10)
--- NOTE | 2017-03-26 06:11 | RADIOLOGY REPORT (SQ) ---
EXAM DESCRIPTION: CHEST SINGLE VIEW CLINICAL HISTORY: short of breath COMPARISON: 02/02/2017 FINDINGS: Single frontal view of the chest. The cardiomediastinal silhouette has normal size and contour. No consolidation, pneumothorax, or pleural effusion. Low lung volumes. No new osseous abnormalities. Leads overlie the chest. Upper abdominal soft tissues are unremarkable. IMPRESSION: 1. No acute pulmonary process identified.
[2017-03-26] MEDS ORDERED: RACEPINEPHRINE HCL 2.25% NEB 0.5 ML AMPUL NEB ONE ×3 (06:19→10:45)
[2017-03-26 06:21] LABS: ABSOLUTE EOSINOPHILS # (AUTO) 0.1 10^3/uL (0.0-0.6); ABSOLUTE LYMPHOCYTES (AUTO) 1.8 10^3/uL (0.5-4.7); ABSOLUTE MONOCYTES (AUTO) 0.8 10^3/uL (0.1-1.4); ABSOLUTE NEUT (AUTO) 4.2 10^3/uL (1.7-8.2); BASOPHILS % (AUTO) 0.6 % (0-2); EOSINOPHILS % (AUTO) 1.3 % (0-6); HEMATOCRIT 40.8 % (37.9-51.0); HEMOGLOBIN 13.5 g/dL (13.5-17.0); HGB HCT DIFFERENCE -0.3; LYMPHOCYTES % (AUTO) 25.6 % (13-45); MEAN CORPUSCULAR HEMOGLOBIN 29.3 pg (27.0-33.4); MEAN CORPUSCULAR HGB CONC 33.1 g/dL (32.0-36.0); MEAN CORPUSCULAR VOLUME 89 fl (80-97); RED CELL DISTRIBUTION WIDTH 14.6 % (11.5-14.0); SEGMENTED NEUTROPHILS % (AUTO) 60.5 % (42-78)
[2017-03-26 06:34] LABS: ALANINE AMINOTRANSFERASE 41 U/L (21-72); ALBUMIN 3.9 g/dL (3.5-5.0); ALKALINE PHOSPHATASE 70 U/L (38-126); ANION GAP 8 (5-19); ASPARTATE AMINO TRANSFERASE 21 U/L (17-59); BILIRUBIN,DIRECT 0.2 mg/dL (0.0-0.4); BILIRUBIN,TOTAL 0.3 mg/dL (0.2-1.3); BLOOD UREA NITROGEN 12 mg/dL (7-20); CALCIUM 9.1 mg/dL (8.4-10.2); CARBON DIOXIDE 34 mmol/L (22-30); CHLORIDE 96 mmol/L (98-107); CREATININE RESULT 0.74 mg/dL (0.52-1.25); GLUCOSE 111 mg/dL (75-110); PROTHROMBIN TIME 12.3 SEC (11.4-15.4); SODIUM 137.5 mmol/L (137-145); TOTAL PROTEIN 6.7 g/dL (6.3-8.2)
[2017-03-26 06:35] LABS: PARTIAL THROMBOPLASTIN TIME 31.6 SEC (23.5-35.8)
[2017-03-26] MEDS ORDERED: ETOMIDATE INJ/PF 20 MG/10 ML SDV IV ONE (06:39)
[2017-03-26] MEDS ORDERED: EPINEPHRINE INJ/PF 1 MG/1 ML AMPULE ONE (06:40)
[2017-03-26] MEDS ORDERED: KETAMINE HCL INJ 500 MG/10 ML VIAL ONE (06:43)
--- NOTE | 2017-03-26 06:45 | EKG REPORT ---
SEVERITY:- ABNORMAL ECG - SINUS TACHYCARDIA PROBABLE LEFT ATRIAL ABNORMALITY BORDERLINE T ABNORMALITIES, INFERIOR LEADS : Confirmed by: Brad Piper 26-Mar-2017 06:45:10
[2017-03-26] MEDS ORDERED: BUPIVACAINE HCL 0.25 % INJ/PF (2.5 MG/1 ML) 30 ML VIAL ONE (06:57)
[2017-03-26] MEDS ORDERED: LIDOCAINE 2% JELLY 30 ML TUBE ONE (06:57)
--- NOTE | 2017-03-26 07:17 | ER Document Report ---
ED General - General Chief Complaint: Shortness Of Breath Stated Complaint: TROUBLE BREATHING Mode of Arrival: Ambulatory TRAVEL OUTSIDE OF THE [place] IN LAST 30 DAYS: No - HPI Patient complains to provider of: Shortness of breath Notes: Patient states coming initially for shortness of breath. During his weight here in ER had tongue and lower lip swelling. Patient has a history of anaphylaxis in the past multiple neurologist. Patient states is currently on 2 medications isosorbide and a new diuretic. Patient otherwise denies any fevers chills nausea vomiting chest pain abdominal pain. Upon my evaluation patient does have obvious swelling of the lip with minimal protrusion of the tongue tongue is swollen. I have asked the staff to move patient to the trauma bay and also administer epi Benadryl and Solu-Medrol. You may refer to the course for complete delineation of events - Related Data Allergies/Adverse Reactions: codeine [Codeine] Allergy (Severe, Verified 12/29/16 10:26) Facial swelling hydrocodone bitartrate [From Vicodin] Allergy (Severe, Verified 12/29/16 10:26) Anaphylaxis lisinopril Allergy (Severe, Verified 12/29/16 10:26) Anaphylaxis hydromorphone [From Dilaudid] Allergy (Verified 12/29/16 10:26) Difficulty breathing morphine Allergy (Verified 12/29/16 10:26) Itching oxycodone Allergy (Verified 12/29/16 10:26) Swelling of tongue Past Medical History - General Information source: Patient - Social History Smoking Status: Unknown if Ever Smoked Family History: Arthritis, CAD - Mother and brother, CVA, DM, Hyperlipidemia, Hypertension, Malignancy Patient has suicidal ideation: No Patient has homicidal ideation: No - Past Medical History Cardiac Medical History: Reports: Hx Atrial Fibrillation, Hx Congestive Heart Failure, Hx Hypercholesterolemia, Hx Hypertension, Hx Pulmonary Embolism Denies: Hx Coronary Artery Disease, Hx Heart Attack, Hx Peripheral Vascular Disease, Hx Heart Murmur Pulmonary Medical History: Reports: Hx Asthma, Hx COPD, Hx Pneumonia - 7 years ago, Hx Sleep Apnea - hx only, not a current problem, no CPAP, Hx Tuberculosis Denies: Hx Bronchitis, Hx Respiratory Failure Neurological Medical History: Reports: Hx Cerebrovascular Accident Endocrine Medical History: Reports: Hx Diabetes Mellitus Type 2. Denies: Hx Graves' Disease, Hx Hyperthyroidism, Hx Hypothyroidism Renal/ Medical History: Reports: Hx Kidney Stones - 1981. Denies: Hx Benign Prostatic Hyperplasia, Hx End Stage Renal Disease, Hx Peritoneal Dialysis Malignancy Medical History: Denies Hx Lung Cancer GI Medical History: Reports: Hx Gastroesophageal Reflux Disease, Hx Hepatitis - Hep C, Hx Pancreatitis - 1988, Hx Ulcer. Denies: Hx Crohn's Disease, Hx Hiatal Hernia, Hx Irritable Bowel, Hx Liver Failure Musculoskeltal Medical History: Reports Hx Arthritis, Denies Hx Fibromyalgia, Denies Hx Multiple Sclerosis, Denies Hx Muscular Dystrophy, Reports Hx Musculoskeletal Deformity, Reports Hx Musculoskeletal Trauma Psychiatric Medical History: Denies: Hx Bipolar Disorder, Hx Dementia, Hx Depression, Hx Post Traumatic Stress Disorder, Hx Schizophrenia Traumatic Medical History: Reports: Hx Fractures, Hx Spine Fracture Infectious Medical History: Reports: Hx Hepatitis - Hep C Past Surgical History: Reports: Hx Abdominal Surgery - Hernia repair, bowel resection, Hx Appendectomy, Hx Bowel Surgery - bowel resection 1988, Hx Herniorrhaphy, Hx Oral Surgery, Hx Orthopedic Surgery - Spinal fusion. Meniscus repair.. Denies: Hx Cholecystectomy, Hx Colostomy, Hx Coronary Artery Bypass Graft, Hx Gastric Bypass Surgery, Hx Pacemaker, Hx Tonsillectomy - Immunizations Immunizations up to date: Yes Hx Diphtheria, Pertussis, Tetanus Vaccination: Yes Hx Pneumococcal Vaccination: 04/12/13 Review of Systems - Review of Systems Constitutional: No symptoms reported EENT: No symptoms reported Cardiovascular: No symptoms reported Respiratory: Short of breath Gastrointestinal: No symptoms reported Genitourinary: No symptoms reported Male Genitourinary: No symptoms reported Musculoskeletal: No symptoms reported Skin: No symptoms reported Hematologic/Lymphatic: No symptoms reported Neurological/Psychological: No symptoms reported Physical Exam - Vital signs Vitals: Temp Pulse Resp BP Pulse Ox 98.3 F 117 H 28 H 125/89 H 92 03/26/17 05:43 03/26/17 05:43 03/26/17 05:43 03/26/17 05:43 03/26/17 05:43 Interpretation: Normal - General General appearance: Appears well, Alert - HEENT Head: Normocephalic, Atraumatic Eyes: Normal Conjunctiva: Normal Pupils: PERRL Ears: Normal External canal: Normal Tympanic membrane: Normal Sinus: Normal Mouth/Lips: Angioedema - Lower lip swelling minimal tongue protrusion from the mouth - Respiratory Respiratory status: No respiratory distress Chest status: Nontender Breath sounds: Decreased air movement, Stridor - Expiratory Chest palpation: Normal - Cardiovascular Rhythm: Regular Heart sounds: Normal auscultation Murmur: No - Abdominal Inspection: Normal Distension: No distension Bowel sounds: Normal Tenderness: Nontender Organomegaly: No organomegaly - Back Back: Normal, Nontender - Extremities General upper extremity: Normal inspection, Nontender, Normal color, Normal ROM , Normal temperature General lower extremity: Normal inspection, Nontender, Normal color, Normal ROM , Normal temperature, Normal weight bearing. No: Bereket's sign - Neurological Neuro grossly intact: Yes Cognition: Normal Orientation: AAOx4 [place] Coma Scale Eye Opening: Spontaneous [place] Coma Scale Verbal: Oriented [place] Coma Scale Motor: Obeys Commands [place] Coma Scale Total: 15 Speech: Normal Motor strength normal: LUE, RUE, LLE, RLE Sensory: Normal - Psychological Associated symptoms: Normal affect, Normal mood - Skin Skin Temperature: Warm Skin Moisture: Dry Skin Color: Normal Course - Re-evaluation Re-evalutation: 03/26/17 07:09 Notified the nurse practitioner upon entering the ER patient in room 21 has a history of angioedema anaphylaxis in the past with lower lip swelling tongue swelling. The tongue swelling the swelling has happened very rapidly just after arrival here to the ER. Upon my evaluation patient had minimal air movement is respiratory stridor. IV was established patient was given Solu- Medrol Pepcid Benadryl and IM of epinephrine patient was moved from room #1. We did repeat the epinephrine approximately 2 more times with some improvement patient was also given a dose of DuoNeb and racemic epi as the patient does have some expiratory with sound like stridor. Initially did improve the patient became worse stated he felt tired and became a little bit somnolent. Therefore decision was made to call surgeon and anesthesia the patient has had multiple intubations in the past. Surgical airway supply was at bedside. Nurse biological plant operator also came to bedside patient had protruding tongue at that time another round of epinephrine was given. Dr. Yanez surgery on-call at bedside to patient does have a history PE and is on Eliquis therefore decision was made to take the patient to the OR for elective intubation. I had multiple discussions with the anesthesiologist Gomez stating that have observed the patient for approximately 40-45 minutes requiring multiple rounds of epinephrine due to his waxing and waning of symptoms in my clinical assessment would be to go ahead and electively intubate the patient although he does look that is somewhat have improved after the last fourth epinephrine is that this is a progressive disease pathway. Approximately around 630 did notify the not hospitalist that the patient was here that he has been admitted to our service multiple times that they would be aware. Once in the OR we did contact the hospitalist again and however they were reluctant to come down and evaluate the patient prior to intubation as that we do not have pulmonology and were not accepting the patient on service at that time. We have called the administration on-call to sort out the situation 03/26/17 07:19 [place] in ER to leonel took to her to the or 03/26/17 08:14 Notified by the surgery team at this time patient did not get intubated patient had improvement of symptoms in the OR 03/26/17 08:17 - Vital Signs Vital signs: Temp Pulse Resp BP Pulse Ox 98.3 F 117 H 16 127/79 H 100 03/26/17 05:43 03/26/17 05:43 03/26/17 06:45 03/26/17 06:45 03/26/17 06:44 - Laboratory Result Diagrams: 03/26/17 06:06 03/26/17 06:06 Laboratory results interpreted by me: 03/26/17 03/26/17 06:06 06:06 RDW 14.6 H Plt Count 140 L Chloride 96 L Carbon Dioxide 34 H Glucose 111 H Critical Care Note - Critical Care Note Total time excluding time spent on procedures (mins): 40 Comments: At bedside in the ER and in the OR for patient with anaphylaxis with angioedema of the lips and tongue Discharge - Discharge Clinical Impression: Anaphylaxis Qualifiers: Encounter type: initial encounter Qualified Code(s): T78.2XXA - Anaphylactic shock, unspecified, initial encounter
--- NOTE | 2017-03-26 07:55 | PDOC CONSULTATION ---
History of Present Illness Patient complains of: Difficulty breathing History of Present Illness: SHANAE TSANG JR is a 61 year old male with history of multiple allergies status post 2 prior anaphylactic reactions requiring intubation now presenting to the emergency department early this morning with difficulty breathing with mouth and tongue swelling. Patient was treated in the emergency department with IV steroids and epinephrine with improvement. Initially patient had waxing and waning course of his airway compromise however in the latter portion of his ER stay he had progressive improvement. General surgery was consulted for possible surgical airway if intubation was not successful. We were prepared to roll the patient to the operating room for the intubation and possible surgical airway however with the patient progressively improving, we decided to observe the patient closely in the intensive care unit. Past Medical History Cardiac Medical History: Reports: Atrial Fibrillation, Congestive Heart Failure , Hyperlipidema, Hypertension, Pulmonary Embolism Denies: Coronary Artery Disease, Myocardial Infarction, Peripheral Vascular Disease, Heart Murmur Pulmonary Medical History: Reports: Asthma, Chronic Obstructive Pulmonary Disease (COPD), Pneumonia - 7 years ago, Sleep Apnea - hx only, not a current problem, no CPAP, Tuberculosis Denies: Bronchitis, Respiratory Failure Neurological Medical History: Endocrine Medical History: Reports: Diabetes Mellitus Type 2 Denies: Hyperthyroidism, Hypothyroidism Renal/ Medical History: Denies: End Stage Renal Disease Malignancy Medical History: Denies: Lung Cancer GI Medical History: Reports: Gastroesophageal Reflux Disease, Hepatitis - Hep C Denies: Crohn's Disease, Hiatal Hernia Musculoskeltal Medical History: Reports: Arthritis Denies: Fibromyalgia Psychiatric Medical History: Denies: Bipolar Disorder, Dementia, Depression, Post Traumatic Stress Disorder Past Surgical History Past Surgical History: Reports: Appendectomy, Herniorrhaphy, Orthopedic Surgery - Spinal fusion. Meniscus repair. Denies: Cholecystectomy, Colostomy, Coronary Artery Bypass Graft, Gastric Bypass Surgery, Pacemaker, Tonsillectomy Social History Smoking Status: Unknown if Ever Smoked Frequency of Alcohol Use: None Hx Recreational Drug Use: No Drugs: Cocaine - Patient admitted to cocaine use when confronted Hx Prescription Drug Abuse: No - Advance Directive Resuscitation Status: Full Code Family History Family History: Arthritis, CAD - Mother and brother, CVA, DM, Hyperlipidemia, Hypertension, Malignancy Parental Family History Reviewed: No Children Family History Reviewed: No Sibling(s) Family History Reviewed.: No Medication/Allergy Home Medications: Albuterol Sulfate [Proair HFA] 2 puff IH Q6HP PRN 12/29/16 Amitriptyline HCl [Elavil 75 mg Tablet] 75 mg PO QHS 12/29/16 Amlodipine Besylate [Norvasc 10 mg Tablet] 10 mg PO DAILY 12/29/16 Apixaban [Eliquis 5 mg Tablet] 5 mg PO Q12 12/29/16 Ascorbic Acid [Vitamin C 500 mg Tablet] 500 mg PO DAILY 12/29/16 Aspirin [Ecotrin 81 mg EC Tablet] 81 mg PO DAILY 12/29/16 Budesonide/Formoterol Fumarate [Symbicort 160-4.5 Mcg Inhaler] 2 puff IH Q12 Ferrous Sulfate [Iron] 325 mg PO DAILY 12/29/16 Fluticasone Propionate [Flonase Nasal [place] 50 Mcg/[place] 16 gm] 1 spray NASL Q12 12/29/16 Gabapentin [Neurontin 100 mg Capsule] 100 mg PO Q8 12/29/16 Hydrochlorothiazide [Hydrodiuril 25 mg Tablet] 25 mg PO DAILY 12/29/16 Insulin Aspart [Novolog Flexpen] 18 units SQ [id number] 12/29/16 Insulin Aspart [Novolog Flexpen] 25 units SQ [id number] 12/29/16 Insulin Glargine,Hum.rec.anlog [Lantus Solostar] 60 units SQ QHS 12/29/16 Metformin HCl [Glucophage] 1,000 mg PO BID 12/29/16 Metoprolol Tartrate [Lopressor 25 mg Tablet] 25 mg PO Q12 12/29/16 Naproxen [Naprosyn 250 mg Tablet] 500 mg PO Q12HP PRN 12/29/16 Omeprazole 40 mg PO DAILY 12/29/16 Pravastatin Sodium [Pravachol] 20 mg PO QHS 12/29/16 Ranitidine HCl [Zantac 150 mg Tablet] 150 mg PO QHS 12/29/16 Sildenafil Citrate [Viagra] 100 mg PO ASDIR PRN 12/29/16 Terazosin HCl [Hytrin] 4 mg PO QHS 12/29/16 Tiotropium Lancing [Spiriva] 1 cap IH DAILY 12/29/16 Tramadol HCl [Ultram 50 mg Tablet] 50 mg PO Q8 12/29/16 Doxycycline Monohydrate 100 mg PO BID #14 tablet 12/31/16 Doxycycline Hyclate 100 mg PO BID #14 capsule 02/02/17 Allergies/Adverse Reactions: codeine [Codeine] Allergy (Severe, Verified 12/29/16 10:26) Facial swelling hydrocodone bitartrate [From Vicodin] Allergy (Severe, Verified 12/29/16 10:26) Anaphylaxis lisinopril Allergy (Severe, Verified 12/29/16 10:26) Anaphylaxis hydromorphone [From Dilaudid] Allergy (Verified 12/29/16 10:26) Difficulty breathing morphine Allergy (Verified 12/29/16 10:26) Itching oxycodone Allergy (Verified 12/29/16 10:26) Swelling of tongue Physical Exam Vital Signs: Temp Pulse Resp BP Pulse Ox 98.3 F 117 H 16 127/79 H 100 03/26/17 05:43 03/26/17 05:43 03/26/17 06:45 03/26/17 06:45 03/26/17 06:44 Intake & Output 03/25/17 03/26/17 03/27/17 06:59 06:59 06:59 Weight 138.6 kg General appearance: PRESENT: cooperative, mild distress - Patient initially with shortness of breath and difficulty with speech however he has become much more comfortable and is able to converse with minimal difficulty at this time. Mouth exam: PRESENT: other - Moderate swelling of the mouth and the tongue. But all improving in the last 30 minutes. Respiratory exam: PRESENT: clear to auscultation angelina - Initially patient had wheezing currently his lungs are clear to auscultation Cardiovascular exam: PRESENT: tachycardia GI/Abdominal exam: PRESENT: other - Soft nondistended nontender to palpation Results Laboratory Results: 03/26/17 06:06 03/26/17 06:06 03/26/17 03/26/17 06:06 06:06 WBC 7.0 RBC 4.60 Hgb 13.5 Hct 40.8 MCV 89 MCH 29.3 MCHC 33.1 RDW 14.6 H Plt Count 140 L Seg Neutrophils % 60.5 Lymphocytes % 25.6 Monocytes % 12.0 Eosinophils % 1.3 Basophils % 0.6 Absolute Neutrophils 4.2 Absolute Lymphocytes 1.8 Absolute Monocytes 0.8 Absolute Eosinophils 0.1 Absolute Basophils 0.0 Sodium 137.5 Potassium 4.0 Chloride 96 L Carbon Dioxide 34 H Anion Gap 8 BUN 12 Creatinine 0.74 Est GFR ( Amer) > 60 Est GFR (Non-Af Amer) > 60 Glucose 111 H Calcium 9.1 Total Bilirubin 0.3 AST 21 ALT 41 Alkaline Phosphatase 70 Total Protein 6.7 Albumin 3.9 Impressions: Chest X-Ray 03/26/17 05:52 IMPRESSION: 1. No acute pulmonary process identified. Assessment & Plan - Diagnosis (1) Anaphylaxis Qualifiers: Encounter type: initial encounter Qualified Code(s): T78.2XXA - Anaphylactic shock, unspecified, initial encounter Is this a current diagnosis for this admission?: Yes Plan: Initial airway compromise that has progressively improved with conservative measures. Patient being admitted to the intensive care unit. Hospitalist is managing the patient in the ICU. Surgery and anesthesia will be on standby if his condition worsens.
[2017-03-26] MEDS ORDERED: DEXTROSE 50%-WATER 25 GM/50 ML DISP.SYRIN IV PRN ×4 (08:11→08:29)
[2017-03-26] MEDS ORDERED: GLUCAGON,HUMAN RECOMB 1 MG INJ SUBCUT PRN (08:11)
[2017-03-26] MEDS ORDERED: DEXTROSE 40% GEL 15 GM TUBE PO PRN ×4 (08:11→08:29)
[2017-03-26] MEDS ORDERED: ONDANSETRON HCL INJ/PF 4 MG/2 ML SDV IV PRN (08:11)
[2017-03-26] MEDS ORDERED: ACETAMINOPHEN 650 MG SUPP.RECT PR PRN (08:11)
[2017-03-26] MEDS: IPRATROPIUM/ALBUTEROL 0.5-2.5 MG/3 ML AMPUL NEB SCH ×4 (08:18→19:53)
[2017-03-26] MEDS ORDERED: GLUCAGON,HUMAN RECOMB 1 MG INJ IM PRN (08:29)
[2017-03-26 08:33] LABS: VENOUS BLOOD BASE EXCESS 5.6 mmol/L; VENOUS BLOOD HCO3 32.3 mmol/L (20-32); VENOUS BLOOD PCO2 55.8 mmHg (35-63); VENOUS BLOOD PH 7.38 (7.30-7.42)
--- NOTE | 2017-03-26 10:12 | PDOC H&P ---
History of Present Illness Admission Date/PCP: 03/26/17 08:11 Dr. Carvajal History of Present Illness: The patient is a 61-year-old gentleman with a past medical history as below. He presented to the emergency department on March 26 with acute onset shortness of breath. He reported taking his usual dose of Lantus at 11 PM and waking up at 4:58 AM with difficulty breathing and swollen tongue. He said he felt unable to breathe through his nose or his mouth. He does have a history of anaphylaxis in the past requiring intubation and has an EpiPen at home but did not think about using it. His drove him to the emergency room. In the emergency room he was noted to have swelling of the lips with minimal protrusion of the tongue and a swollen tongue. He was treated with epinephrine Benadryl and Solu-Medrol. The patient is on Eliquis for pulmonary embolism. Therefore a decision was made to try to intubate the patient in the operating room. He was moved to [facility] however upon evaluation by the anesthesiologist as well as the surgeons it was determined that his swelling had improved considerably, and that intubation was not indicated. The patient was transferred to the intensive care unit for close monitoring. He is awake and alert. His speech is slurred but he is able to communicate to me that he was not ill recently. He was started on Imdur and Lasix last week and has been taking them daily with no problems. His dinner last night included shrimp salad but he denies having had an allergic reaction to shrimp or other shellfish in the past. COPD Insulin-dependent diabetes Hypertension Chronic pain Hepatitis C Destinee esophagitis Gastroesophageal reflux disease Obesity Cocaine abuse Hyperlipidemia Depression with suicide attempt in the past Anaphylaxis requiring intubation in September 2016 and in 2014 Pulmonary embolism and DVT on anticoagulation Sleep apnea on CPAP Osteoarthritis Normal stress test in December 2016 Right adrenal nodule Drug allergies: Lisinopril Morphine Percocet Demerol Codeine Tylenol He denies allergies to shellfish or latex or any foods. Past surgical history Appendectomy Back surgery 4 Left knee arthroplasty Last echocardiogram was in December 2016. Study was technically difficult with many images being suboptimal in quality. Left ventricular ejection fraction was reported as normal Grade 2 mild to moderate diastolic dysfunction was noted. Moderate concentric left ventricular hypertrophy Past Medical History Cardiac Medical History: Reports: Congestive Heart Failure, Hyperlipidema, Hypertension, Pulmonary Embolism Denies: Coronary Artery Disease, Myocardial Infarction, Peripheral Vascular Disease, Heart Murmur Pulmonary Medical History: Reports: Chronic Obstructive Pulmonary Disease (COPD) , Pneumonia - 7 years ago, Sleep Apnea - hx only, not a current problem, no CPAP Denies: Bronchitis, Respiratory Failure Neurological Medical History: Endocrine Medical History: Reports: Diabetes Mellitus Type 2 Denies: Hyperthyroidism, Hypothyroidism Renal/ Medical History: Denies: End Stage Renal Disease Malignancy Medical History: Denies: Lung Cancer GI Medical History: Reports: Gastroesophageal Reflux Disease, Hepatitis - Hep C Denies: Crohn's Disease, Hiatal Hernia Musculoskeltal Medical History: Reports: Arthritis Denies: Fibromyalgia Psychiatric Medical History: Denies: Bipolar Disorder, Dementia, Depression, Post Traumatic Stress Disorder Past Surgical History Past Surgical History: Reports: Appendectomy, Herniorrhaphy, Orthopedic Surgery - Spinal fusion. Meniscus repair. Denies: Cholecystectomy, Colostomy, Coronary Artery Bypass Graft, Gastric Bypass Surgery, Pacemaker, Tonsillectomy Social History Smoking Status: Unknown if Ever Smoked Frequency of Alcohol Use: None Hx Recreational Drug Use: No Drugs: Cocaine - Patient admitted to cocaine use when confronted Hx Prescription Drug Abuse: No - Advance Directive Resuscitation Status: Full Code Family History Family History: Arthritis, CAD - Mother and brother, CVA, DM, Hyperlipidemia, Hypertension, Malignancy Parental Family History Reviewed: Yes Children Family History Reviewed: Yes Sibling(s) Family History Reviewed.: Yes Medication/Allergy Home Medications: Albuterol Sulfate [Proair HFA] 2 puff IH Q6HP PRN 12/29/16 Amitriptyline HCl [Elavil 75 mg Tablet] 75 mg PO QHS 12/29/16 Amlodipine Besylate [Norvasc 10 mg Tablet] 10 mg PO DAILY 12/29/16 Apixaban [Eliquis 5 mg Tablet] 5 mg PO Q12 12/29/16 Ascorbic Acid [Vitamin C 500 mg Tablet] 500 mg PO DAILY 12/29/16 Aspirin [Ecotrin 81 mg EC Tablet] 81 mg PO DAILY 12/29/16 Budesonide/Formoterol Fumarate [Symbicort 160-4.5 Mcg Inhaler] 2 puff IH Q12 Ferrous Sulfate [Iron] 325 mg PO DAILY 12/29/16 Fluticasone Propionate [Flonase Nasal [place] 50 Mcg/[place] 16 gm] 1 spray NASL Q12 12/29/16 Gabapentin [Neurontin 100 mg Capsule] 100 mg PO Q8 12/29/16 Hydrochlorothiazide [Hydrodiuril 25 mg Tablet] 25 mg PO DAILY 12/29/16 Insulin Aspart [Novolog Flexpen] 18 units SQ ACBRKFST 12/29/16 Insulin Aspart [Novolog Flexpen] 25 units SQ BIDACLS 12/29/16 Insulin Glargine,Hum.rec.anlog [Lantus Solostar] 60 units SQ QHS 12/29/16 Metformin HCl [Glucophage] 1,000 mg PO BID 12/29/16 Metoprolol Tartrate [Lopressor 25 mg Tablet] 25 mg PO Q12 12/29/16 Naproxen [Naprosyn 250 mg Tablet] 500 mg PO Q12HP PRN 12/29/16 Omeprazole 40 mg PO DAILY 12/29/16 Pravastatin Sodium [Pravachol] 20 mg PO QHS 12/29/16 Ranitidine HCl [Zantac 150 mg Tablet] 150 mg PO QHS 12/29/16 Sildenafil Citrate [Viagra] 100 mg PO ASDIR PRN 12/29/16 Terazosin HCl [Hytrin] 4 mg PO QHS 12/29/16 Tiotropium Varina [Spiriva] 1 cap IH DAILY 12/29/16 Tramadol HCl [Ultram 50 mg Tablet] 50 mg PO Q8 12/29/16 Doxycycline Monohydrate 100 mg PO BID #14 tablet 12/31/16 Doxycycline Hyclate 100 mg PO BID #14 capsule 02/02/17 Allergies/Adverse Reactions: codeine [Codeine] Allergy (Severe, Verified 12/29/16 10:26) Facial swelling hydrocodone bitartrate [From Vicodin] Allergy (Severe, Verified 12/29/16 10:26) Anaphylaxis lisinopril Allergy (Severe, Verified 12/29/16 10:26) Anaphylaxis hydromorphone [From Dilaudid] Allergy (Verified 12/29/16 10:26) Difficulty breathing morphine Allergy (Verified 12/29/16 10:26) Itching oxycodone Allergy (Verified 12/29/16 10:26) Swelling of tongue Review of Systems Constitutional: ABSENT: chills, fever(s), headache(s), weight gain, weight loss Eyes: ABSENT: visual disturbances Ears: ABSENT: hearing changes Physical Exam Vital Signs: Temp Pulse Resp BP Pulse Ox 98.4 F 103 H 18 127/80 H 97 03/26/17 08:08 03/26/17 08:18 03/26/17 08:18 03/26/17 08:08 03/26/17 08:08 Additional comments: Middle-aged -[place] gentleman lying in bed not in acute distress HEENT: Pupils equal reactive to light dry oropharyngeal mucosa swelling of the lower lip and the tongue. Lungs: Decreased breath sounds bilaterally no use of accessory muscles Cardiac: S1-S2 regular no murmurs heard no peripheral edema no calf tenderness no cyanosis Abdomen: Soft, obese, no focal tenderness, normal bowel sounds Skin: Warm and dry Neurologic: Awake alert and oriented 3. Speech is slurred. No facial droop. Motor strength 5+ out of 5 bilateral upper and lower extremities Results Laboratory Results: 03/26/17 08:25 VBG pH 7.38 VBG pCO2 55.8 VBG HCO3 32.3 H VBG Base Excess 5.6 Impressions: Chest X-Ray 03/26/17 05:52 IMPRESSION: 1. No acute pulmonary process identified. Assessment & Plan - Diagnosis (1) Anaphylaxis Qualifiers: Encounter type: initial encounter Qualified Code(s): T78.2XXA - Anaphylactic shock, unspecified, initial encounter Is this a current diagnosis for this admission?: Yes Plan: He received racemic epinephrine. Intramuscular epinephrine, intravenous Solu- Medrol and IV Benadryl. We will continue to monitor him closely in the intensive care unit. Respiratory support as indicated. Currently on BiPAP which we shall continue. He was evaluated by the anesthesiology and surgical services and they are available in case he may require intubation. The patient is stable at present. (2) COPD (chronic obstructive pulmonary disease) Qualifiers: COPD type: unspecified COPD Qualified Code(s): J44.9 - Chronic obstructive pulmonary disease, unspecified Is this a current diagnosis for this admission?: Yes Plan: Duo nebs every 4 hours. Continue outpatient inhalers including Symbicort and Flonase. Pulmonology consultation has also been requested. (3) Chronic back pain greater than 3 months duration Is this a current diagnosis for this admission?: Yes (4) Diabetes Qualifiers: Diabetes mellitus type: type 2 Diabetes mellitus complication status: with diabetic arthropathy Diabetes mellitus complication detail: with other arthropathy Diabetes mellitus group home insulin use: with group home use Qualified Code(s): E11.618 - Type 2 diabetes mellitus with other diabetic arthropathy; Z79.4 - [facility] (current) use of insulin Is this a current diagnosis for this admission?: Yes Plan: Every 4 hr Accu-Cheks and sliding scale. Patient will be n.p.o. Next (5) Dyspnea Is this a current diagnosis for this admission?: Yes Plan: Continue management as above. (6) Gastroesophageal reflux disease Qualifiers: Esophagitis presence: esophagitis presence not specified Qualified Code(s) : K21.9 - Gastro-esophageal reflux disease without esophagitis Is this a current diagnosis for this admission?: Yes Plan: H2 renetta ordered. (7) Obesity (BMI 30-39.9) Qualifiers: Obesity type: due to excess calories Qualified Code(s): E66.01 - Morbid ( severe) obesity due to excess calories Is this a current diagnosis for this admission?: Yes (8) Sleep apnea Is this a current diagnosis for this admission?: Yes Plan: BiPAP support. He will need to use CPAP at night at home. He has had a positive sleep study as an outpatient but does not have a CPAP machine at home yet. (9) Hepatitis C Qualifiers: Viral hepatitis chronicity: chronic Hepatic coma status: without hepatic coma Qualified Code(s): B18.2 - Chronic viral hepatitis C Is this a current diagnosis for this admission?: Yes Plan: Outpatient follow-up. (10) Hypertension Qualifiers: Hypertension type: essential hypertension Qualified Code(s): I10 - Essential (primary) hypertension Is this a current diagnosis for this admission?: Yes Plan: Oral medications on hold due to n.p.o. status. We will monitor his pressures and treat with as needed IV medications as indicated. - Time Critical Time spent with patient: 35 or more minutes - Inpatient Certification Medical Necessity: Need Close Monitoring Due to Risk of Patient Decompensation, Risk of Complication if Not Cared For in Hospital
[2017-03-26] MEDS ORDERED: DEXAMETHASONE SOD PHOS INJ 10 MG/1 ML VIAL IV ONE (11:00)
[2017-03-26] MEDS: ENOXAPARIN SODIUM INJ 40 MG/0.4 ML DISP.SYRIN SUBCUT SCH (11:02)
[2017-03-26] MEDS: FAMOTIDINE INJ/PF 20 MG/2 ML SDV IV SCH ×2 (11:02→21:48)
[2017-03-26] MEDS: FLUTICASONE NASAL SPRAY 50 MCG/SPRY 120 SPRAY/16 GM NASL SCH ×2 (11:03→21:49)
[2017-03-26] MEDS: BUDESONIDE/FORMOTEROL 160-4.5 MCG 60 PUFF/6 GM MDI IH SCH ×2 (11:03→21:48)
[2017-03-26 11:51] LABS: ARTERIAL BLOOD BASE EXCESS 3.9 mmol/L; ARTERIAL BLOOD O2 SATURATION 63.7 % (94-98)
[2017-03-26] MEDS ORDERED: RACEPINEPHRINE HCL 2.25% NEB 0.5 ML AMPUL NEB PRN (13:19)
[2017-03-26] MEDS ORDERED: INFLUENZA ADLT QUAD (36MOS+) 2017-18 VAC 0.5 ML SYR IM PRN (13:46)
[2017-03-26] MEDS: DEXAMETHASONE SOD PHOS INJ 10 MG/1 ML VIAL IV SCH ×3 (14:59→21:48)
[2017-03-26 15:57] LABS: APPEARANCE,URINE CLEAR; BILIRUBIN,URINE NEGATIVE (NEGATIVE); GLUCOSE, URINE >=500 mg/dL (NEGATIVE); KETONES,URINE NEGATIVE (NEGATIVE); LEUKOCYTE ESTERASE,URINE NEGATIVE (NEGATIVE); NITRITE,URINE NEGATIVE (NEGATIVE); PROTEIN,URINE NEGATIVE (NEGATIVE); UROBILINOGEN,URINE NEGATIVE mg/dL (<2.0)
[2017-03-26 16:10] LABS: URINE BARBITURATES SCREEN NEGATIVE; URINE METHADONE SCREEN NEGATIVE; URINE OPIATES LOW NEGATIVE; URINE PHENCYCLIDINE SCREEN NEGATIVE
[2017-03-26] MEDS: INSULIN LISPRO 100 UNIT/ML 3 ML VIAL SUBCUT PRN (22:19)
[2017-03-27] MEDS: IPRATROPIUM/ALBUTEROL 0.5-2.5 MG/3 ML AMPUL NEB SCH ×5 (00:58→16:32)
[2017-03-27] MEDS: INSULIN LISPRO 100 UNIT/ML 3 ML VIAL SUBCUT PRN ×4 (02:12→12:49)
[2017-03-27] MEDS: DEXAMETHASONE SOD PHOS INJ 10 MG/1 ML VIAL IV SCH ×3 (02:12→09:25)
[2017-03-27] MEDS ORDERED: ACETAMINOPHEN 325 MG TABLET PO PRN ×2 (04:57→05:30)
[2017-03-27] MEDS ORDERED: ACETAMINOPHEN 325 MG TABLET PO ONE (05:00)
[2017-03-27 05:45] LABS: ARTERIAL BLOOD BASE EXCESS 0.9 mmol/L; ARTERIAL BLOOD O2 SATURATION 94.9 % (94-98)
[2017-03-27 07:07] LABS: ABSOLUTE BASOPHILS # (AUTO) 0.1 10^3/uL (0.0-0.2); ABSOLUTE MONOCYTES (AUTO) 0.8 10^3/uL (0.1-1.4); ABSOLUTE NEUT (AUTO) 15.9 10^3/uL (1.7-8.2); BASOPHILS % (AUTO) 0.3 % (0-2); HEMATOCRIT 39.9 % (37.9-51.0); HEMOGLOBIN 13.1 g/dL (13.5-17.0); HGB HCT DIFFERENCE -0.6; LYMPHOCYTES % (AUTO) 5.4 % (13-45); MEAN CORPUSCULAR HEMOGLOBIN 29.1 pg (27.0-33.4); MEAN CORPUSCULAR HGB CONC 32.9 g/dL (32.0-36.0); MEAN CORPUSCULAR VOLUME 89 fl (80-97); MONOCYTES % (AUTO) 4.6 % (3-13); RED CELL DISTRIBUTION WIDTH 14.9 % (11.5-14.0); SEGMENTED NEUTROPHILS % (AUTO) 89.7 % (42-78)
[2017-03-27 07:09] LABS: ANION GAP 10 (5-19); BLOOD UREA NITROGEN 12 mg/dL (7-20); CALCIUM 8.3 mg/dL (8.4-10.2); CARBON DIOXIDE 27 mmol/L (22-30); CHLORIDE 100 mmol/L (98-107); CREATININE RESULT 0.64 mg/dL (0.52-1.25); GLUCOSE 290 mg/dL (75-110); MAGNESIUM 1.7 mg/dL (1.6-2.3); POTASSIUM 4.5 mmol/L (3.6-5.0); SODIUM 137.2 mmol/L (137-145)
[2017-03-27 07:11] LABS: WHITE BLOOD COUNT 17.7 10^3/uL (4.0-10.5)
[2017-03-27] MEDS ORDERED: INSULIN LISPRO 100 UNIT/ML 3 ML VIAL SUBCUT SCH (08:30)
[2017-03-27] MEDS: ENOXAPARIN SODIUM INJ 40 MG/0.4 ML DISP.SYRIN SUBCUT SCH (09:24)
[2017-03-27] MEDS: FLUTICASONE NASAL SPRAY 50 MCG/SPRY 120 SPRAY/16 GM NASL SCH (09:25)
[2017-03-27] MEDS: BUDESONIDE/FORMOTEROL 160-4.5 MCG 60 PUFF/6 GM MDI IH SCH (09:25)
[2017-03-27] MEDS: FAMOTIDINE INJ/PF 20 MG/2 ML SDV IV SCH (09:25)
[2017-03-27] MEDS ORDERED: INSULIN GLARGINE,HUM.REC.ANLOG 1,000 UNIT/10 ML UNIT SUBCUT ONE (09:30)
[2017-03-27] MEDS ORDERED: MAGNESIUM OXIDE 400 MG TABLET PO SCH (10:00)
--- NOTE | 2017-03-27 13:10 | PDOC DISCHARGE SUMMARY ---
General - Admit/Disc Date/PCP Admission Date/Primary Care Provider: 03/26/17 08:11 PCP: Dr. Carvajal Discharge Date: 03/27/17 - Discharge Diagnosis (1) Anaphylaxis Is this a current diagnosis for this admission?: Yes (2) COPD (chronic obstructive pulmonary disease) Is this a current diagnosis for this admission?: Yes (3) Chronic back pain greater than 3 months duration Is this a current diagnosis for this admission?: Yes (4) Diabetes Is this a current diagnosis for this admission?: Yes (5) Dyspnea Is this a current diagnosis for this admission?: Yes (6) Gastroesophageal reflux disease Is this a current diagnosis for this admission?: Yes (7) Obesity (BMI 30-39.9) Is this a current diagnosis for this admission?: Yes (8) Sleep apnea Is this a current diagnosis for this admission?: Yes (9) Hepatitis C Is this a current diagnosis for this admission?: Yes (10) Hypertension Is this a current diagnosis for this admission?: Yes - Additional Information Resuscitation Status: Full Code Discharge Diet: Diabetic Discharge Activity: Activity As Tolerated Home Medications: Amitriptyline HCl [Elavil 75 mg Tablet] 75 mg PO QHS 12/29/16 Amlodipine Besylate [Norvasc 10 mg Tablet] 10 mg PO DAILY 12/29/16 Apixaban [Eliquis 5 mg Tablet] 5 mg PO Q12 12/29/16 Ascorbic Acid [Vitamin C 500 mg Tablet] 500 mg PO DAILY 12/29/16 Ferrous Sulfate [Iron] 325 mg PO DAILY 12/29/16 Gabapentin [Neurontin 100 mg Capsule] 100 mg PO Q8 12/29/16 Hydrochlorothiazide [Hydrodiuril 25 mg Tablet] 25 mg PO DAILY 12/29/16 Insulin Aspart [Novolog Flexpen] 18 units SQ ACBRKFST 12/29/16 Insulin Aspart [Novolog Flexpen] 25 units SQ BIDACLS 12/29/16 Insulin Glargine,Hum.rec.anlog [Lantus Solostar] 60 units SQ QHS 12/29/16 Metformin HCl [Glucophage] 1,000 mg PO BID 12/29/16 Metoprolol Tartrate [Lopressor 25 mg Tablet] 25 mg PO Q12 12/29/16 Pravastatin Sodium [Pravachol] 20 mg PO QHS 12/29/16 Ranitidine HCl [Zantac 150 mg Tablet] 150 mg PO QHS 12/29/16 Terazosin HCl [Hytrin] 4 mg PO QHS 12/29/16 Tramadol HCl [Ultram 50 mg Tablet] 50 mg PO Q8 12/29/16 Furosemide [Lasix 20 mg Tablet] 20 mg PO DAILY 03/26/17 Isosorbide Mononitrate [Imdur 30 mg Tablet.er] 30 mg PO DAILY 03/26/17 Omeprazole 20 mg PO BID 03/26/17 History of Present Illness History of Present Illness: The patient is a 61-year-old gentleman with a past medical history as below. He presented to the emergency department on March 26 with acute onset shortness of breath. He reported taking his usual dose of Lantus at 11 PM and waking up at 4:58 AM with difficulty breathing and swollen tongue. He said he felt unable to breathe through his nose or his mouth. He does have a history of anaphylaxis in the past requiring intubation and has an EpiPen at home but did not think about using it. His drove him to the emergency room. In the emergency room he was noted to have swelling of the lips with minimal protrusion of the tongue and a swollen tongue. He was treated with epinephrine Benadryl and Solu-Medrol. The patient is on Eliquis for pulmonary embolism. Therefore a decision was made to try to intubate the patient in the operating room. He was moved to [facility] however upon evaluation by the anesthesiologist as well as the surgeons it was determined that his swelling had improved considerably, and that intubation was not indicated. The patient was transferred to the intensive care unit for close monitoring. He is awake and alert. His speech is slurred but he is able to communicate to me that he was not ill recently. He was started on Imdur and Lasix last week and has been taking them daily with no problems. His dinner last night included shrimp salad but he denies having had an allergic reaction to shrimp or other shellfish in the past. COPD Insulin-dependent diabetes Hypertension Chronic pain Hepatitis C Destinee esophagitis Gastroesophageal reflux disease Obesity Cocaine abuse Hyperlipidemia Depression with suicide attempt in the past Anaphylaxis requiring intubation in September 2016 and in 2014 Pulmonary embolism and DVT on anticoagulation Sleep apnea on CPAP Osteoarthritis Normal stress test in December 2016 Right adrenal nodule Drug allergies: Lisinopril Morphine Percocet Demerol Codeine Tylenol He denies allergies to shellfish or latex or any foods. Past surgical history Appendectomy Back surgery 4 Left knee arthroplasty Last echocardiogram was in December 2016. Study was technically difficult with many images being suboptimal in quality. Left ventricular ejection fraction was reported as normal Grade 2 mild to moderate diastolic dysfunction was noted. Moderate concentric left ventricular hypertrophy He was admitted to the intensive care unit due to concern for impending airway compromise. He was evaluated by the surgical and pulmonology services. He was treated with IV steroids. His swelling improved considerably and he did not require intubation. The patient has done well overnight. He is ready for discharge home. He does admit to eating a lot of shrimp salad and says that he did have an iodine allergy in the past. He has been asked not to any shellfish and avoid iodine-containing products. Hospital Course Hospital Course: As above. Physical Exam Vital Signs: Temp Pulse Resp BP Pulse Ox 98.8 F 111 H 17 143/71 H 96 03/27/17 05:46 03/27/17 07:55 03/27/17 11:00 03/27/17 09:28 03/27/17 11:00 Intake & Output 03/26/17 03/27/17 03/28/17 06:59 06:59 06:59 Intake Total 3563 Output Total 3400 500 Balance 163 -500 Weight 133.2 kg Additional comments: Middle-aged -[place] male, and up in his chair, not in acute distress Lungs: Clear to auscultation bilaterally normal respiratory effort Results Laboratory Results: 03/27/17 06:49 03/27/17 06:49 03/26/17 03/27/17 03/27/17 15:30 05:25 06:49 WBC RBC Hgb Hct MCV MCH MCHC RDW Plt Count Seg Neutrophils % Lymphocytes % Monocytes % Eosinophils % Basophils % Absolute Neutrophils Absolute Lymphocytes Absolute Monocytes Absolute Eosinophils Absolute Basophils Carbonic Acid 1.30 HCO3/H2CO3 Ratio 20:1 ABG pH 7.40 ABG pCO2 43.2 ABG pO2 74.3 L ABG HCO3 26.0 ABG O2 Saturation 94.9 ABG Base Excess 0.9 FiO2 3L Sodium 137.2 Potassium 4.5 Chloride 100 Carbon Dioxide 27 Anion Gap 10 BUN 12 Creatinine 0.64 Est GFR ( Amer) > 60 Est GFR (Non-Af Amer) > 60 Glucose 290 H Calcium 8.3 L Magnesium 1.7 Urine Color YELLOW Urine Appearance CLEAR Urine pH 7.0 Ur Specific [place] 1.010 Urine Protein NEGATIVE Urine Glucose (UA) >=500 H Urine Ketones NEGATIVE Urine Blood NEGATIVE Urine Nitrite NEGATIVE Ur Leukocyte Esterase NEGATIVE Urine WBC (Auto) 1 03/27/17 06:49 WBC 17.7 H D RBC 4.50 Hgb 13.1 L Hct 39.9 MCV 89 MCH 29.1 MCHC 32.9 RDW 14.9 H Plt Count 130 L Seg Neutrophils % 89.7 H Lymphocytes % 5.4 L Monocytes % 4.6 Eosinophils % 0.0 Basophils % 0.3 Absolute Neutrophils 15.9 H Absolute Lymphocytes 1.0 Absolute Monocytes 0.8 Absolute Eosinophils 0.0 Absolute Basophils 0.1 Carbonic Acid HCO3/H2CO3 Ratio ABG pH ABG pCO2 ABG pO2 ABG HCO3 ABG O2 Saturation ABG Base Excess FiO2 Sodium Potassium Chloride Carbon Dioxide Anion Gap BUN Creatinine Est GFR ( Amer) Est GFR (Non-Af Amer) Glucose Calcium Magnesium Urine Color Urine Appearance Urine pH Ur Specific [place] Urine Protein Urine Glucose (UA) Urine Ketones Urine Blood Urine Nitrite Ur Leukocyte Esterase Urine WBC (Auto) Impressions: Chest X-Ray 03/26/17 05:52 IMPRESSION: 1. No acute pulmonary process identified. Qualifiers PATEINT BEING DISCHARGED WITH ANY OF THE FOLLOWING DIAGNOSIS?: No Plan Time Spent: Greater than 30 Minutes - Patient is stable for discharge to home. He is to follow-up with his primary care physician in 1 week. He is to avoid shellfish and iodine containing products in addition to other medications that he is allergic to.
[2017-03-27 17:15] VITALS: BP 125/89
--- NOTE | 2017-03-28 17:14 | PDOC CONSULTATION ---
Consultation Consult Date: 03/26/17 Attending physician:: DEE ESQUIVEL Consult reason:: anaphlaxsis History of Present Illness Admission Date/PCP: 03/26/17 08:11 History of Present Illness: 61-year-old male presented to the emergency room acutely short of breath and was noted to have progressive swelling in this time there was some hypoxia associated with this presentation and he was planned for him to be admitted in emergently intubated per anesthesiology however the patient responded well to nasal cannula and maintain adequate saturation he was given Decadron and ischemic Therapy as well as H2 renetta and transferred to the ICU. Past Medical History Cardiac Medical History: Reports: Atrial Fibrillation, Congestive Heart Failure , Hyperlipidema, Hypertension, Pulmonary Embolism Denies: Coronary Artery Disease, Myocardial Infarction, Peripheral Vascular Disease, Heart Murmur Pulmonary Medical History: Reports: Asthma, Chronic Obstructive Pulmonary Disease (COPD), Pneumonia - 7 years ago, Sleep Apnea - hx only, not a current problem, no CPAP, Tuberculosis Denies: Bronchitis, Respiratory Failure EENT Medical History: Denies: Ears, Nose, Throat Neurological Medical History: Denies: Migraine, Multiple Sclerosis Endocrine Medical History: Reports: Diabetes Mellitus Type 2, Obesity Denies: Hyperthyroidism, Hypothyroidism Renal/ Medical History: Denies: End Stage Renal Disease, Nephrolithiasis Malignancy Medical History: Denies: Lung Cancer GI Medical History: Reports: Gastroesophageal Reflux Disease, Hepatitis - Hep C Denies: Crohn's Disease, Hiatal Hernia Musculoskeltal Medical History: Reports: Arthritis Denies: Fibromyalgia Skin Medical History: Denies: Psoriasis Psychiatric Medical History: Denies: Bipolar Disorder, Dementia, Depression, Post Traumatic Stress Disorder Traumatic Medical History: Denies: Traumatic Brain Injury Hematology: Denies: Sickle Cell Disease Infectious Medical History: Denies: Hepatitis B, Hepatitis C Past Surgical History Past Surgical History: Reports: Appendectomy, Herniorrhaphy, Orthopedic Surgery - Spinal fusion. Meniscus repair. Denies: Cholecystectomy, Colostomy, Coronary Artery Bypass Graft, Gastric Bypass Surgery, Pacemaker, Tonsillectomy Social History Information Source: [facility] Records Smoking Status: Unknown if Ever Smoked Frequency of Alcohol Use: None Hx Recreational Drug Use: No Drugs: Cocaine - Patient admitted to cocaine use when confronted Hx Prescription Drug Abuse: No - Advance Directive Resuscitation Status: Full Code Family History Family History: Arthritis, CAD - Mother and brother, CVA, DM, Hyperlipidemia, Hypertension, Malignancy Parental Family History Reviewed: Yes Children Family History Reviewed: Yes Sibling(s) Family History Reviewed.: Yes Medication/Allergy Home Medications: Amitriptyline HCl [Elavil 75 mg Tablet] 75 mg PO QHS 12/29/16 Amlodipine Besylate [Norvasc 10 mg Tablet] 10 mg PO DAILY 12/29/16 Apixaban [Eliquis 5 mg Tablet] 5 mg PO Q12 12/29/16 Ascorbic Acid [Vitamin C 500 mg Tablet] 500 mg PO DAILY 12/29/16 Ferrous Sulfate [Iron] 325 mg PO DAILY 12/29/16 Gabapentin [Neurontin 100 mg Capsule] 100 mg PO Q8 12/29/16 Hydrochlorothiazide [Hydrodiuril 25 mg Tablet] 25 mg PO DAILY 12/29/16 Insulin Aspart [Novolog Flexpen] 18 units SQ ACBRKFST 12/29/16 Insulin Aspart [Novolog Flexpen] 25 units SQ BIDACLS 12/29/16 Insulin Glargine,Hum.rec.anlog [Lantus Solostar] 60 units SQ QHS 12/29/16 Metformin HCl [Glucophage] 1,000 mg PO BID 12/29/16 Metoprolol Tartrate [Lopressor 25 mg Tablet] 25 mg PO Q12 12/29/16 Pravastatin Sodium [Pravachol] 20 mg PO QHS 12/29/16 Ranitidine HCl [Zantac 150 mg Tablet] 150 mg PO QHS 12/29/16 Terazosin HCl [Hytrin] 4 mg PO QHS 12/29/16 Tramadol HCl [Ultram 50 mg Tablet] 50 mg PO Q8 12/29/16 Furosemide [Lasix 20 mg Tablet] 20 mg PO DAILY 03/26/17 Isosorbide Mononitrate [Imdur 30 mg Tablet.er] 30 mg PO DAILY 03/26/17 Omeprazole 20 mg PO BID 03/26/17 Allergies/Adverse Reactions: codeine [Codeine] Allergy (Severe, Verified 12/29/16 10:26) Facial swelling hydrocodone bitartrate [From Vicodin] Allergy (Severe, Verified 12/29/16 10:26) Anaphylaxis lisinopril Allergy (Severe, Verified 12/29/16 10:26) Anaphylaxis hydromorphone [From Dilaudid] Allergy (Verified 12/29/16 10:26) Difficulty breathing Iodine and Iodide Containing Produc Allergy (Verified 03/27/17 13:27) Anaphylaxis morphine Allergy (Verified 12/29/16 10:26) Itching oxycodone Allergy (Verified 12/29/16 10:26) Swelling of tongue shellfish derived Allergy (Verified 03/27/17 13:27) Anaphylaxis Review of Systems ROS unobtainable: Due to mental status Physical Exam Vital Signs: Temp Pulse Resp BP Pulse Ox 98.4 F 109 H 20 127/80 H 97 03/26/17 08:08 03/26/17 08:08 03/26/17 08:08 03/26/17 08:08 03/26/17 08:08 General appearance: PRESENT: disheveled, mild distress, morbidly obese, well- developed, well-nourished. ABSENT: no acute distress, cooperative, obese, severe distress, thin Head exam: PRESENT: atraumatic, normocephalic Eye exam: PRESENT: conjunctiva pale, EOMI, periorbital swelling. ABSENT: conjunctival injection, conjunctiva pink, nystagmus, scleral icterus Mouth exam: PRESENT: dry mucosa, neck supple, tongue midline - 1 tongue protruding from mouth is excessively swollen. ABSENT: laceration, moist Teeth exam: PRESENT: poor dentation Neck exam: ABSENT: carotid bruit, JVD, lymphadenopathy, thyromegaly, tracheal deviation, tracheostomy Respiratory exam: PRESENT: decreased breath sounds, prolonged expiratory phas, rales, rhonchi, stridor, symmetrical, unlabored, wheezes. ABSENT: accessory muscle use, chest wall tenderness, clear to auscultation angelina, crackles, retraction, tachypnea Cardiovascular exam: PRESENT: RRR, +S1, +S2. ABSENT: irregular rhythm, rubs Pulses: PRESENT: normal radial pulses GI/Abdominal exam: PRESENT: normal bowel sounds, soft. ABSENT: distended, guarding, mass, organolmegaly, rebound, tenderness Extremities exam: ABSENT: clubbing, joint swelling Musculoskeletal exam: ABSENT: deformity, dislocation Skin exam: PRESENT: dry, warm Results Laboratory Results: 03/26/17 08:25 VBG pH 7.38 VBG pCO2 55.8 VBG HCO3 32.3 H VBG Base Excess 5.6 Impressions: Chest X-Ray 03/26/17 05:52 IMPRESSION: 1. No acute pulmonary process identified. Assessment & Plan - Diagnosis (1) Anaphylaxis Qualifiers: Encounter type: initial encounter Qualified Code(s): T78.2XXA - Anaphylactic shock, unspecified, initial encounter Is this a current diagnosis for this admission?: Yes Plan: not clear whether this is from an SHAMA inhibitor or from seafood. (2) COPD (chronic obstructive pulmonary disease) Qualifiers: COPD type: unspecified COPD Qualified Code(s): J44.9 - Chronic obstructive pulmonary disease, unspecified Is this a current diagnosis for this admission?: Yes Plan: Discontinued Medications Generic Name Dose Route Start Last Admin Trade Name Freq PRN Reason Stop Dose Admin Epinephrine 0.5 ml 03/26/17 13:19 03/26/17 16:12 S-2 Neb Soln 2.25% Ampul NEB 04/25/17 13:18 0.5 ml [id number] PRN WHEEZING/DYSPNEA Albuterol/Ipratropium 3 ml 03/26/17 08:00 03/27/17 16:32 Duoneb 3 Ml Ampul NEB 04/25/17 07:59 3 ml RTQ4 KENDAL Budesonide/Formoterol Fumarate 2 puff 03/26/17 10:00 03/27/17 09:25 Symbicort Hfa 160-4.5 Mcg Inhaler 6 Gm IH 04/25/17 09:59 2 puff Q12 KENDAL Fluticasone Propionate 1 spray 03/26/17 10:00 03/27/17 09:25 Flonase Nasal Willard 50 Mcg/Willard 16 Gm NASL 04/25/17 09:59 1 spray Q12 KENDAL (3) Left lower lobe pneumonia Qualifiers: Aspiration pneumonia type: unspecified Qualified Code(s): J69.0 - Pneumonitis due to inhalation of food and vomit Is this a current diagnosis for this admission?: Yes Plan: Community acquired aspiration pneumonitis - Time Total Critical Time (Minutes): 50
--- NOTE | 2017-03-28 17:20 | PDOC PROGRESS REPORT ---
Subjective Progress Note for:: 03/27/17 Subjective:: Over the last 24 hours Reason For Visit: ANAPHYLAXIS WITH RISK OF AIRWAY COMPROMISE Physical Exam Vital Signs: Temp Pulse Resp BP Pulse Ox 98.8 F 111 H 16 130/86 H 99 03/27/17 05:46 03/27/17 07:55 03/27/17 06:00 03/27/17 05:46 03/27/17 06:00 Intake & Output 03/26/17 03/27/17 03/28/17 06:59 06:59 06:59 Intake Total 3563 Output Total 3400 Balance 163 Weight 133.2 kg General appearance: PRESENT: no acute distress, cooperative, disheveled, morbidly obese, well-developed. ABSENT: hard of hearing, mild distress, obese, severe distress, thin Head exam: PRESENT: atraumatic, normocephalic Eye exam: PRESENT: conjunctiva pale, EOMI. ABSENT: conjunctival injection, conjunctiva pink, nystagmus, periorbital swelling, scleral icterus Mouth exam: PRESENT: dry mucosa, neck supple, tongue midline, other - [place] 4. ABSENT: laceration, moist Teeth exam: PRESENT: poor dentation Neck exam: ABSENT: carotid bruit, JVD, lymphadenopathy, thyromegaly, tracheal deviation, tracheostomy Respiratory exam: PRESENT: decreased breath sounds, prolonged expiratory phas, rhonchi, symmetrical, unlabored, wheezes. ABSENT: accessory muscle use, chest wall tenderness, clear to auscultation angelina, crackles, rales, retraction, stridor , tachypnea Cardiovascular exam: PRESENT: RRR, +S1, +S2. ABSENT: irregular rhythm, rubs Pulses: PRESENT: normal radial pulses GI/Abdominal exam: PRESENT: normal bowel sounds, soft. ABSENT: distended, guarding, mass, organolmegaly, rebound, tenderness Extremities exam: PRESENT: clubbing, joint swelling Musculoskeletal exam: PRESENT: ambulatory, deformity, dislocation Neurological exam: PRESENT: alert, awake Psychiatric exam: PRESENT: normal mood Skin exam: PRESENT: dry, warm Results Laboratory Results: 03/27/17 06:49 03/27/17 06:49 03/26/17 03/26/17 03/27/17 11:27 15:30 05:25 WBC RBC Hgb Hct MCV MCH MCHC RDW Plt Count Seg Neutrophils % Lymphocytes % Monocytes % Eosinophils % Basophils % Absolute Neutrophils Absolute Lymphocytes Absolute Monocytes Absolute Eosinophils Absolute Basophils Carbonic Acid 1.70 H 1.30 HCO3/H2CO3 Ratio 18:1 20:1 ABG pH 7.36 7.40 ABG pCO2 56.4 H 43.2 ABG pO2 35.2 L* 74.3 L ABG HCO3 30.9 H 26.0 ABG O2 Saturation 63.7 L 94.9 ABG Base Excess 3.9 0.9 FiO2 30% 3L Sodium Potassium Chloride Carbon Dioxide Anion Gap BUN Creatinine Est GFR ( Amer) Est GFR (Non-Af Amer) Glucose Calcium Magnesium Urine Color YELLOW Urine Appearance CLEAR Urine pH 7.0 Ur Specific [place] 1.010 Urine Protein NEGATIVE Urine Glucose (UA) >=500 H Urine Ketones NEGATIVE Urine Blood NEGATIVE Urine Nitrite NEGATIVE Ur Leukocyte Esterase NEGATIVE Urine WBC (Auto) 1 03/27/17 03/27/17 06:49 06:49 WBC 17.7 H D RBC 4.50 Hgb 13.1 L Hct 39.9 MCV 89 MCH 29.1 MCHC 32.9 RDW 14.9 H Plt Count 130 L Seg Neutrophils % 89.7 H Lymphocytes % 5.4 L Monocytes % 4.6 Eosinophils % 0.0 Basophils % 0.3 Absolute Neutrophils 15.9 H Absolute Lymphocytes 1.0 Absolute Monocytes 0.8 Absolute Eosinophils 0.0 Absolute Basophils 0.1 Carbonic Acid HCO3/H2CO3 Ratio ABG pH ABG pCO2 ABG pO2 ABG HCO3 ABG O2 Saturation ABG Base Excess FiO2 Sodium 137.2 Potassium 4.5 Chloride 100 Carbon Dioxide 27 Anion Gap 10 BUN 12 Creatinine 0.64 Est GFR ( Amer) > 60 Est GFR (Non-Af Amer) > 60 Glucose 290 H Calcium 8.3 L Magnesium 1.7 Urine Color Urine Appearance Urine pH Ur Specific [place] Urine Protein Urine Glucose (UA) Urine Ketones Urine Blood Urine Nitrite Ur Leukocyte Esterase Urine WBC (Auto) Impressions: Chest X-Ray 03/26/17 05:52 IMPRESSION: 1. No acute pulmonary process identified. Assessment & Plan - Diagnosis (1) Witnessed episode of apnea Is this a current diagnosis for this admission?: Yes Plan: Schedule for nocturnal polysomnogram at time of discharge follow-up with Dr. Humphries's office (2) Acute respiratory failure Qualifiers: Respiratory failure complication: hypoxia and hypercapnia Qualified Code(s) : J96.01 - Acute respiratory failure with hypoxia Is this a current diagnosis for this admission?: No (3) Anaphylaxis Qualifiers: Encounter type: initial encounter Qualified Code(s): T78.2XXA - Anaphylactic shock, unspecified, initial encounter Is this a current diagnosis for this admission?: Yes Plan: event as a result of lisinopril patient stable at this time - Time Total Critical Time (Minutes): 35
== END 2017-03-27 17:30 | disposition home or self-care (01) | DRG 916 ==
LOC: ER 05:41 → ICU 07:26 → UNDOADMIN 08:00 → ER 08:00 → ICU 08:11
PROVIDERS: ADMIT Internal Medicine; ATTEND Internal Medicine
PROC: 5A09457 Assistance with Respiratory Ventilation, 24-96 Consecutive Hours, Continuous Positive Airway Pressure (ICD-10-PCS; 2017-03-26)
PROC: 3E0234Z Introduction of Serum, Toxoid and Vaccine into Muscle, Percutaneous Approach (ICD-10-PCS; principal; 2017-03-27)
DX: T78.02XA Anaphylactic reaction due to shellfish (crustaceans), initial encounter (principal); E11.9 Type 2 diabetes mellitus without complications; G89.29 Other chronic pain; J44.9 Chronic obstructive pulmonary disease, unspecified; E66.9 Obesity, unspecified; E78.5 Hyperlipidemia, unspecified; M19.90 Unspecified osteoarthritis, unspecified site; I48.91 Unspecified atrial fibrillation; I11.0 Hypertensive heart disease with heart failure; I50.9 Heart failure, unspecified; G47.30 Sleep apnea, unspecified; M54.9 Dorsalgia, unspecified; K21.9 Gastro-esophageal reflux disease without esophagitis; Z86.19 Personal history of other infectious and parasitic diseases; Z88.6 Allergy status to analgesic agent; Z86.711 Personal history of pulmonary embolism; Z79.02 Long term (current) use of antithrombotics/antiplatelets; Z79.4 Long term (current) use of insulin; Z23 Encounter for immunization; Z79.82 Long term (current) use of aspirin
CPT/HCPCS: 36415; 71010; 80048; 80053; 80307; 81001; 82803; 82962; 83735; 85025; 85610; 85730; 90686; 93005; 93010; 94640; 94660; 96361; 96372; 96374; 96375; 99291; J0171; J1100; J1200; J1650; J1815; J2930; J3490; J7030; J7620; S0028

== ENCOUNTER 2017-04-21 09:03 | Inpatient (IN) | payer OTHER ==
[2017-04-21] MEDS ORDERED: EPINEPHRINE INJ/PF 1 MG/1 ML AMPULE ONE (09:15)
[2017-04-21] MEDS ORDERED: METHYLPREDNISOLONE INJ 125 MG/2 ML SDV IV ONE (09:18)
[2017-04-21] MEDS ORDERED: DIPHENHYDRAMINE HCL 50 MG/ML VIAL IV ONE (09:18)
[2017-04-21] MEDS ORDERED: FAMOTIDINE INJ/PF 20 MG/2 ML SDV IV ONE (09:18)
[2017-04-21] MEDS ORDERED: NORMAL SALINE 1000 ML 1,000 ML IV ONE (09:19)
[2017-04-21] MEDS ORDERED: EPINEPHRINE INJ/PF 1 MG/1 ML AMPULE SUBCUT ONE (09:19)
--- NOTE | 2017-04-21 09:26 | ER Document Report ---
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 fib on Eliquis, presents with 1 hour of tongue swelling, stridor and difficulty swallowing fluids. He has an extensive workup with his cobbler upper in [place] and they are unsure about what is causing his frequent angioedema. His last angioedema episode was about 3 weeks ago and he was intubated for 4 days. The patients denies nausea, vomiting, rash, new medications, new soaps, new foods or wheezing. TRAVEL OUTSIDE OF THE [place] IN LAST 30 DAYS: No - Related Data Allergies/Adverse Reactions: codeine [Codeine] Allergy (Severe, Verified 04/21/17 09:33) Facial swelling hydrocodone bitartrate [From Vicodin] Allergy (Severe, Verified 04/21/17 09:33) Anaphylaxis lisinopril Allergy (Severe, Verified 04/21/17 09:33) Anaphylaxis hydromorphone [From Dilaudid] Allergy (Verified 04/21/17 09:33) Difficulty breathing Iodine and Iodide Containing Produc Allergy (Verified 04/21/17 09:33) Anaphylaxis morphine Allergy (Verified 04/21/17 09:33) Itching oxycodone Allergy (Verified 04/21/17 09:33) Swelling of tongue shellfish derived Allergy (Verified 04/21/17 09:33) Anaphylaxis Past Medical History - General Information source: Patient - Social History Smoking Status: Unknown if Ever Smoked Family History: Arthritis, CAD - Mother and brother, CVA, DM, Hyperlipidemia, Hypertension, Malignancy - Past Medical History Cardiac Medical History: Reports: Hx Atrial Fibrillation, Hx Congestive Heart Failure, Hx Hypercholesterolemia, Hx Hypertension, Hx Pulmonary Embolism Denies: Hx Coronary Artery Disease, Hx Heart Attack, Hx Peripheral Vascular Disease, Hx Heart Murmur Pulmonary Medical History: Reports: Hx Asthma, Hx COPD, Hx Pneumonia - 7 years ago, Hx Sleep Apnea - hx only, not a current problem, no CPAP, Hx Tuberculosis Denies: Hx Bronchitis, Hx Respiratory Failure Neurological Medical History: Reports: Hx Cerebrovascular Accident. Denies: Hx Migraine Endocrine Medical History: Reports: Hx Diabetes Mellitus Type 2. Denies: Hx Graves' Disease, Hx Hyperthyroidism, Hx Hypothyroidism Renal/ Medical History: Reports: Hx Kidney Stones - 1981. Denies: Hx Benign Prostatic Hyperplasia, Hx End Stage Renal Disease, Hx Peritoneal Dialysis Malignancy Medical History: Denies Hx Lung Cancer GI Medical History: Reports: Hx Gastroesophageal Reflux Disease, Hx Hepatitis - Hep C, Hx Pancreatitis - 1988, Hx Ulcer. Denies: Hx Crohn's Disease, Hx Hiatal Hernia, Hx Irritable Bowel, Hx Liver Failure Musculoskeltal Medical History: Reports Hx Arthritis, Denies Hx Fibromyalgia, Denies Hx Multiple Sclerosis, Denies Hx Muscular Dystrophy, Reports Hx Musculoskeletal Deformity, Reports Hx Musculoskeletal Trauma Skin Medical History: Denies Hx Psoriasis Psychiatric Medical History: Denies: Hx Bipolar Disorder, Hx Dementia, Hx Depression, Hx Post Traumatic Stress Disorder, Hx Schizophrenia Traumatic Medical History: Reports: Hx Fractures, Hx Spine Fracture. Denies: Hx Traumatic Brain Injury Infectious Medical History: Reports: Hx Hepatitis - Hep C Past Surgical History: Reports: Hx Abdominal Surgery - Hernia repair, bowel resection, Hx Appendectomy, Hx Bowel Surgery - bowel resection 1988, Hx Herniorrhaphy, Hx Oral Surgery, Hx Orthopedic Surgery - Spinal fusion. Meniscus repair.. Denies: Hx Cholecystectomy, Hx Colostomy, Hx Coronary Artery Bypass Graft, Hx Gastric Bypass Surgery, Hx Pacemaker, Hx Tonsillectomy - Immunizations Immunizations up to date: Yes Hx Diphtheria, Pertussis, Tetanus Vaccination: Yes Hx Pneumococcal Vaccination: 04/12/13 Review of Systems - Review of Systems Notes: REVIEW OF SYSTEMS: CONSTITUTIONAL: -fevers, -chills EENT: -eye pain, +tongue swelling, +difficulty swallowing, -nasal congestion CARDIOVASCULAR: -chest pain, -syncope. RESPIRATORY: -cough, -SOB GASTROINTESTINAL: -abdominal pain, -nausea, -vomiting, -diarrhea GENITOURINARY: -dysuria, -hematuria MUSCULOSKELETAL: -back pain, -neck pain SKIN: -rash or skin lesions. HEMATOLOGIC: -easy bruising or bleeding. LYMPHATIC: -swollen, enlarged glands. NEUROLOGICAL: -altered mental status or loss of consciousness, -headache, - neurologic symptoms PSYCHIATRIC: -anxiety, -depression. ALL OTHER SYSTEMS REVIEWED AND NEGATIVE. Physical Exam - Vital signs Vitals: Temp Pulse Resp BP Pulse Ox 98.6 F 85 26 H 141/93 H 94 04/21/17 09:20 04/21/17 09:20 04/21/17 09:20 04/21/17 09:20 04/21/17 09:20 - Notes Notes: PHYSICAL EXAMINATION: GENERAL: Well-appearing, well-nourished and in no acute distress. HEAD: Atraumatic, normocephalic. EYES: Pupils equal round and reactive to light, extraocular movements intact, sclera anicteric, conjunctiva are normal. ENT: symmetrical tongue swelling, uvula swelling, nares patent. Moist mucous membranes. NECK: Inspriratory stridor. Normal range of motion, supple without lymphadenopathy LUNGS: Breath sounds clear to auscultation bilaterally and equal. No wheezes rales or rhonchi. HEART: Regular rate and rhythm without murmurs ABDOMEN: Soft, nontender, normoactive bowel sounds. No guarding, no rebound. No masses appreciated. EXTREMITIES: Normal range of motion, no pitting or edema. No cyanosis. NEUROLOGICAL: Cranial nerves grossly intact. Normal speech, normal gait. Normal sensory and motor exams. PSYCH: Normal mood, normal affect. SKIN: Warm, Dry, normal turgor, no rashes or lesions noted. Course - Re-evaluation Re-evalutation: Pt seen immediately on arrival. Patient provided with epinephrine, Solu-Medrol , prednisone, Benadryl and fluids. However, his tongue angioedema and stridor was worsening. There is concern for worsening airway obstruction. Looking through prior records, patient has frequent intubations for his angioedema. Patient is on Eliquis. Spoke to anesthesiology and Dr. Welsh at 09:35 and will intubate patient in the OR in a controlled setting in case he needs to be trached. Spoke to Dr. Hopkins (Hospitalist) and he has accepted patient to the ICU at 09:40 after the OR. - Vital Signs Vital signs: Temp Pulse Resp BP Pulse Ox 98.6 F 85 26 H 141/93 H 94 04/21/17 09:20 04/21/17 09:20 04/21/17 09:20 04/21/17 09:20 04/21/17 09:20 Discharge - Discharge Clinical Impression: Angioedema Qualifiers: Encounter type: initial encounter Qualified Code(s): T78.3XXA - Angioneurotic edema, initial encounter Condition: Serious Disposition: ADMITTED INPATIENT Admitting Provider: Porshaist - Sandeep Unit Admitted: ICU
[2017-04-21] MEDS ORDERED: EPINEPHRINE INJ/PF 1 MG/1 ML AMPULE IM ONE (09:28)
[2017-04-21] MEDS ORDERED: KETAMINE HCL INJ 500 MG/10 ML VIAL IV ONE (09:28)
[2017-04-21] MEDS ORDERED: SUCCINYLCHOLINE CHLORIDE INJ 200 MG/10 ML VIAL IV ONE (09:29)
[2017-04-21] MEDS ORDERED: LIDOCAINE 2% URO-JET 5 ML KIT ONE (09:49)
[2017-04-21] MEDS ORDERED: LIDOCAINE 2% INJ (20 MG/ML) 20 ML MDV ONE (09:49)
--- NOTE | 2017-04-21 10:37 | PDOC CONSULTATION ---
Consultation Consult Date: 04/21/17 Consult reason:: Standby for possible trach if unable to intubate History of Present Illness Admission Date/PCP: 04/21/17 09:52 History of Present Illness: SHANAE TSANG JR is a 61 year old male woke up at 3 am with swollen tongue and SOB. Brought to ED. For intubation in the OR and possible trach if unable to intubate. Had previous episodes in the past. Unable to pinpoint etiology. Past Medical History Cardiac Medical History: Reports: Atrial Fibrillation, Congestive Heart Failure , Hyperlipidema, Hypertension, Pulmonary Embolism Denies: Coronary Artery Disease, Myocardial Infarction, Peripheral Vascular Disease, Heart Murmur Pulmonary Medical History: Reports: Asthma, Chronic Obstructive Pulmonary Disease (COPD), Pneumonia - 7 years ago, Sleep Apnea - hx only, not a current problem, no CPAP, Tuberculosis Denies: Bronchitis, Respiratory Failure Neurological Medical History: Denies: Migraine Endocrine Medical History: Reports: Diabetes Mellitus Type 2 Denies: Hyperthyroidism, Hypothyroidism Renal/ Medical History: Denies: End Stage Renal Disease Malignancy Medical History: Denies: Lung Cancer GI Medical History: Reports: Gastroesophageal Reflux Disease, Hepatitis - Hep C Denies: Crohn's Disease, Hiatal Hernia Musculoskeltal Medical History: Reports: Arthritis Denies: Fibromyalgia Skin Medical History: Denies: Psoriasis Psychiatric Medical History: Denies: Bipolar Disorder, Dementia, Depression, Post Traumatic Stress Disorder Traumatic Medical History: Denies: Traumatic Brain Injury Hematology: Denies: Sickle Cell Disease Past Surgical History Past Surgical History: Reports: Appendectomy, Herniorrhaphy, Orthopedic Surgery - Spinal fusion. Meniscus repair. Denies: Cholecystectomy, Colostomy, Coronary Artery Bypass Graft, Gastric Bypass Surgery, Pacemaker, Tonsillectomy Social History Smoking Status: Unknown if Ever Smoked Frequency of Alcohol Use: None Hx Recreational Drug Use: No Drugs: Cocaine - Patient admitted to cocaine use when confronted Hx Prescription Drug Abuse: No - Advance Directive Resuscitation Status: Full Code Family History Family History: Arthritis, CAD - Mother and brother, CVA, DM, Hyperlipidemia, Hypertension, Malignancy Parental Family History Reviewed: Yes Children Family History Reviewed: No Sibling(s) Family History Reviewed.: No Medication/Allergy Home Medications: Amitriptyline HCl [Elavil 75 mg Tablet] 75 mg PO QHS 12/29/16 Amlodipine Besylate [Norvasc 10 mg Tablet] 10 mg PO DAILY 12/29/16 Apixaban [Eliquis 5 mg Tablet] 5 mg PO Q12 12/29/16 Ascorbic Acid [Vitamin C 500 mg Tablet] 500 mg PO DAILY 12/29/16 Ferrous Sulfate [Iron] 325 mg PO DAILY 12/29/16 Gabapentin [Neurontin 100 mg Capsule] 100 mg PO Q8 12/29/16 Hydrochlorothiazide [Hydrodiuril 25 mg Tablet] 25 mg PO DAILY 12/29/16 Insulin Aspart [Novolog Flexpen] 18 units SQ ACBRKFST 12/29/16 Insulin Aspart [Novolog Flexpen] 25 units SQ BIDACLS 12/29/16 Insulin Glargine,Hum.rec.anlog [Lantus Solostar] 60 units SQ QHS 12/29/16 Metformin HCl [Glucophage] 1,000 mg PO BID 12/29/16 Metoprolol Tartrate [Lopressor 25 mg Tablet] 25 mg PO Q12 12/29/16 Pravastatin Sodium [Pravachol] 20 mg PO QHS 12/29/16 Ranitidine HCl [Zantac 150 mg Tablet] 150 mg PO QHS 12/29/16 Terazosin HCl [Hytrin] 4 mg PO QHS 12/29/16 Tramadol HCl [Ultram 50 mg Tablet] 50 mg PO Q8 12/29/16 Furosemide [Lasix 20 mg Tablet] 20 mg PO DAILY 03/26/17 Isosorbide Mononitrate [Imdur 30 mg Tablet.er] 30 mg PO DAILY 03/26/17 Omeprazole 20 mg PO BID 03/26/17 Allergies/Adverse Reactions: codeine [Codeine] Allergy (Severe, Verified 04/21/17 09:33) Facial swelling hydrocodone bitartrate [From Vicodin] Allergy (Severe, Verified 04/21/17 09:33) Anaphylaxis lisinopril Allergy (Severe, Verified 04/21/17 09:33) Anaphylaxis hydromorphone [From Dilaudid] Allergy (Verified 04/21/17 09:33) Difficulty breathing Iodine and Iodide Containing Produc Allergy (Verified 04/21/17 09:33) Anaphylaxis morphine Allergy (Verified 04/21/17 09:33) Itching oxycodone Allergy (Verified 04/21/17 09:33) Swelling of tongue shellfish derived Allergy (Verified 04/21/17 09:33) Anaphylaxis Review of Systems Review of Systems: Swollen tongue and some shortness of breath Physical Exam Vital Signs: Temp Pulse Resp BP Pulse Ox 98.6 F 85 26 H 141/93 H 98 04/21/17 09:20 04/21/17 09:20 04/21/17 09:20 04/21/17 09:20 04/21/17 09:58 Mouth exam: PRESENT: other - tongue swollen Assessment & Plan - Diagnosis (1) Angioedema Qualifiers: Encounter type: initial encounter Qualified Code(s): T78.3XXA - Angioneurotic edema, initial encounter - Time Time Spent: 30 to 50 Minutes - Plan Summary Plan Summary: I will be in the OR with sterile gown and gloves on standby while patient is being intubated Note: Patient successfully intubated and to go to ICU 2.
[2017-04-21 10:52] LABS: ARTERIAL BLOOD BASE EXCESS 1.5 mmol/L; ARTERIAL BLOOD H2CO3 1.85 mmol/L (1.05-1.35); ARTERIAL BLOOD HCO3 29.3 mmol/L (20-26); ARTERIAL BLOOD O2 SATURATION 97.8 % (94-98); ARTERIAL BLOOD PCO2 61.3 mmHg (35-45); ARTERIAL BLOOD PO2 118.4 mmHg (80-100); ARTERIAL BLOOD TOTAL CO2 31.2 mmol/L (23-27)
[2017-04-21 11:00] LABS: ARTERIAL BLOOD FIO2 60%
[2017-04-21] MEDS ORDERED: RINGERS SOLUTION,LACTATED 1,000 ML IV PRN (11:04)
[2017-04-21] MEDS ORDERED: ACETAMINOPHEN 650 MG SUPP.RECT PR PRN (11:04)
[2017-04-21] MEDS ORDERED: DEXTROSE 50%-WATER 25 GM/50 ML DISP.SYRIN IV PRN ×2 (11:04)
[2017-04-21] MEDS ORDERED: ONDANSETRON HCL INJ/PF 4 MG/2 ML SDV IV PRN (11:04)
[2017-04-21] MEDS ORDERED: GLUCAGON,HUMAN RECOMB 1 MG INJ SUBCUT PRN (11:04)
[2017-04-21] MEDS ORDERED: DEXTROSE 40% GEL 15 GM TUBE PO PRN ×2 (11:04)
[2017-04-21] MEDS ORDERED: ACETAMINOPHEN 325 MG TABLET PO PRN (11:04)
--- NOTE | 2017-04-21 11:08 | RADIOLOGY REPORT (SQ) ---
EXAM DESCRIPTION: KUB/ABDOMEN (SINGLE VIEW) COMPLETED DATE/TIME: 04/21/2017 11:00 am REASON FOR STUDY: N/G tube placement COMPARISON: 2016. FINDINGS: Single portable upright view of the upper abdomen. Nasogastric tube in place with tip to the fundus of the stomach. Motion artifact limits evaluation o f the lung bases. Grossly nonobstructive pattern with gas and stool throughout the visualized colon. IMPRESSION: Appropriate nasogastric tube. TECHNICAL DOCUMENTATION: JOB ID: [id number]
--- NOTE | 2017-04-21 11:09 | RADIOLOGY REPORT (SQ) ---
EXAM DESCRIPTION: CHEST SINGLE VIEW COMPLETED DATE/TIME: 04/21/2017 11:00 am REASON FOR STUDY: ET and N/G tube Placement COMPARISON: 03/26/2017. FINDINGS: Single-view portable chest AP upright. Endotracheal tube in appropriate location, tip mark ewhat difficult to discretely visualize but above the marilyn. Nasogastric tube down, tip in the luis jud fundus. Low lung volumes with mild basilar subsegmental atelectasis suspected. IMPRESSION: 1. Appropriate endotracheal and nasogastric tubes. TECHNICAL DOCUMENTATION: JOB ID: [id number]
--- NOTE | 2017-04-21 11:29 | PDOC H&P ---
History of Present Illness Admission Date/PCP: 04/21/17 09:52 Patient complains of: Mouth and Tongue Swelling. History of Present Illness: Patient is a 61-year-old gentleman that presented to our facility with complaint of mouth and tongue swelling that began immediately this morning. Received call from ER stating that patient will be emergently intubated by surgery. Patient was seen briefly who reports that he had swelling of the tongue and mouth that began early this morning. Patient states he is on aware of what could potentially cause the problem. Patient's states that he was doing well and then all of a sudden his mouth and tongue started swelling. Patient did state that he had had some chest pain this morning. Past Medical History Cardiac Medical History: Reports: Atrial Fibrillation, Congestive Heart Failure , Hyperlipidema, Hypertension, Pulmonary Embolism Denies: Coronary Artery Disease, Myocardial Infarction, Peripheral Vascular Disease, Heart Murmur Pulmonary Medical History: Reports: Asthma, Chronic Obstructive Pulmonary Disease (COPD), Pneumonia - 7 years ago, Sleep Apnea - hx only, not a current problem, no CPAP, Tuberculosis Denies: Bronchitis, Respiratory Failure Neurological Medical History: Denies: Migraine Endocrine Medical History: Reports: Diabetes Mellitus Type 2 Denies: Hyperthyroidism, Hypothyroidism Renal/ Medical History: Denies: End Stage Renal Disease Malignancy Medical History: Denies: Lung Cancer GI Medical History: Reports: Gastroesophageal Reflux Disease, Hepatitis - Hep C Denies: Crohn's Disease, Hiatal Hernia Musculoskeltal Medical History: Reports: Arthritis Denies: Fibromyalgia Skin Medical History: Denies: Psoriasis Psychiatric Medical History: Denies: Bipolar Disorder, Dementia, Depression, Post Traumatic Stress Disorder Traumatic Medical History: Denies: Traumatic Brain Injury Hematology: Denies: Sickle Cell Disease Past Surgical History Past Surgical History: Reports: Appendectomy, Herniorrhaphy, Orthopedic Surgery - Spinal fusion. Meniscus repair. Denies: Cholecystectomy, Colostomy, Coronary Artery Bypass Graft, Gastric Bypass Surgery, Pacemaker, Tonsillectomy Social History Smoking Status: Unknown if Ever Smoked Frequency of Alcohol Use: None Hx Recreational Drug Use: No Drugs: Cocaine - Patient admitted to cocaine use when confronted Hx Prescription Drug Abuse: No - Advance Directive Resuscitation Status: Full Code Family History Family History: Arthritis, CAD - Mother and brother, CVA, DM, Hyperlipidemia, Hypertension, Malignancy Parental Family History Reviewed: Yes Children Family History Reviewed: Yes Sibling(s) Family History Reviewed.: Yes Medication/Allergy Home Medications: Amitriptyline HCl [Elavil 75 mg Tablet] 75 mg PO QHS 12/29/16 Amlodipine Besylate [Norvasc 10 mg Tablet] 10 mg PO DAILY 12/29/16 Apixaban [Eliquis 5 mg Tablet] 5 mg PO Q12 12/29/16 Ascorbic Acid [Vitamin C 500 mg Tablet] 500 mg PO DAILY 12/29/16 Ferrous Sulfate [Iron] 325 mg PO DAILY 12/29/16 Gabapentin [Neurontin 100 mg Capsule] 100 mg PO Q8 12/29/16 Hydrochlorothiazide [Hydrodiuril 25 mg Tablet] 25 mg PO DAILY 12/29/16 Insulin Aspart [Novolog Flexpen] 18 units SQ ACBRKFST 12/29/16 Insulin Aspart [Novolog Flexpen] 25 units SQ BIDACLS 12/29/16 Insulin Glargine,Hum.rec.anlog [Lantus Solostar] 60 units SQ QHS 12/29/16 Metformin HCl [Glucophage] 1,000 mg PO BID 12/29/16 Metoprolol Tartrate [Lopressor 25 mg Tablet] 25 mg PO Q12 12/29/16 Pravastatin Sodium [Pravachol] 20 mg PO QHS 12/29/16 Ranitidine HCl [Zantac 150 mg Tablet] 150 mg PO QHS 12/29/16 Terazosin HCl [Hytrin] 4 mg PO QHS 12/29/16 Tramadol HCl [Ultram 50 mg Tablet] 50 mg PO Q8 12/29/16 Furosemide [Lasix 20 mg Tablet] 20 mg PO DAILY 03/26/17 Isosorbide Mononitrate [Imdur 30 mg Tablet.er] 30 mg PO DAILY 03/26/17 Omeprazole 20 mg PO BID 03/26/17 Allergies/Adverse Reactions: codeine [Codeine] Allergy (Severe, Verified 04/21/17 09:33) Facial swelling hydrocodone bitartrate [From Vicodin] Allergy (Severe, Verified 04/21/17 09:33) Anaphylaxis lisinopril Allergy (Severe, Verified 04/21/17 09:33) Anaphylaxis hydromorphone [From Dilaudid] Allergy (Verified 04/21/17 09:33) Difficulty breathing Iodine and Iodide Containing Produc Allergy (Verified 04/21/17 09:33) Anaphylaxis morphine Allergy (Verified 04/21/17 09:33) Itching oxycodone Allergy (Verified 04/21/17 09:33) Swelling of tongue shellfish derived Allergy (Verified 04/21/17 09:33) Anaphylaxis Review of Systems Constitutional: ABSENT: chills, fever(s), headache(s), weight gain, weight loss Eyes: ABSENT: visual disturbances Ears: ABSENT: hearing changes Nose, Mouth, and Throat: PRESENT: other - Tongue and mouth swelling Cardiovascular: PRESENT: chest pain. ABSENT: dyspnea on exertion, edema, orthropnea, palpitations Respiratory: ABSENT: cough, hemoptysis Gastrointestinal: ABSENT: abdominal pain, constipation, diarrhea, hematemesis, hematochezia, nausea, vomiting Genitourinary: ABSENT: dysuria, hematuria Musculoskeletal: ABSENT: joint swelling Integumentary: ABSENT: rash, wounds Neurological: ABSENT: abnormal gait, abnormal speech, confusion, dizziness, focal weakness, syncope Psychiatric: ABSENT: anxiety, depression, homidical ideation, suicidal ideation Endocrine: ABSENT: cold intolerance, heat intolerance, polydipsia, polyuria Hematologic/Lymphatic: ABSENT: easy bleeding, easy bruising Physical Exam Vital Signs: Temp Pulse Resp BP Pulse Ox 97.3 F 92 15 134/81 H 100 04/21/17 10:51 04/21/17 10:51 04/21/17 10:51 04/21/17 10:51 04/21/17 10:51 Intake & Output 04/20/17 04/21/17 04/22/17 06:59 06:59 06:59 Output Total 400 Balance -400 Weight 139.4 kg General appearance: PRESENT: mild distress, well-developed, well-nourished, other - Tongue enlarged sticking out of mouth Head exam: PRESENT: atraumatic, normocephalic Eye exam: PRESENT: conjunctiva pink, EOMI. ABSENT: scleral icterus Ear exam: PRESENT: normal external ear exam Mouth exam: PRESENT: other - Tongue enlarged and sticking out of mouth unable to see back of patient's pharynx when asked to open mouth Neck exam: ABSENT: carotid bruit, JVD, lymphadenopathy, thyromegaly Respiratory exam: PRESENT: accessory muscle use, wheezes Cardiovascular exam: PRESENT: RRR. ABSENT: diastolic murmur, rubs, systolic murmur Pulses: PRESENT: normal dorsalis pedis pul Vascular exam: PRESENT: normal capillary refill GI/Abdominal exam: PRESENT: normal bowel sounds, soft. ABSENT: distended, guarding, mass, organolmegaly, rebound, tenderness Rectal exam: PRESENT: deferred Extremities exam: PRESENT: full ROM. ABSENT: calf tenderness, clubbing, pedal edema Musculoskeletal exam: PRESENT: full ROM Neurological exam: PRESENT: alert, awake, oriented to person, oriented to place , oriented to time, oriented to situation, CN II-XII grossly intact. ABSENT: motor sensory deficit Psychiatric exam: PRESENT: anxious, normal mood. ABSENT: homicidal ideation, suicidal ideation Skin exam: PRESENT: dry, intact, warm. ABSENT: cyanosis, rash Results Laboratory Results: 04/21/17 10:30 Carbonic Acid 1.85 H HCO3/H2CO3 Ratio 15:1 ABG pH 7.30 L ABG pCO2 61.3 H ABG pO2 118.4 H ABG HCO3 29.3 H ABG O2 Saturation 97.8 ABG Base Excess 1.5 FiO2 60% Impressions: Chest X-Ray 04/21/17 10:38 IMPRESSION: 1. Appropriate endotracheal and nasogastric tubes. KUB X-Ray 04/21/17 10:53 IMPRESSION: Appropriate nasogastric tube. Assessment & Plan - Diagnosis (1) Angioedema Qualifiers: Encounter type: initial encounter Qualified Code(s): T78.3XXA - Angioneurotic edema, initial encounter Is this a current diagnosis for this admission?: Yes Plan: Patient intubated currently. Will consult Dr. Humphries for assistance with vent management. Will continue steroids, famotidine, Benadryl. (2) Acute respiratory failure Qualifiers: Respiratory failure complication: hypoxia and hypercapnia Qualified Code(s) : J96.01 - Acute respiratory failure with hypoxia Is this a current diagnosis for this admission?: Yes Plan: Regular to any angioedema status post intubation: We will have pulmonary follow patient. We will continue steroids and antihistamine. (3) Anaphylaxis Qualifiers: Encounter type: initial encounter Qualified Code(s): T78.2XXA - Anaphylactic shock, unspecified, initial encounter (4) Cocaine abuse Is this a current diagnosis for this admission?: Yes Plan: History of cocaine abuse: Will check drug screen (5) Obesity (BMI 30-39.9) Qualifiers: Obesity type: due to excess calories Qualified Code(s): E66.01 - Morbid ( severe) obesity due to excess calories Is this a current diagnosis for this admission?: Yes Plan: Encourage dietary changes. (6) Pulmonary embolism Qualifiers: Chronicity: unspecified Acute cor pulmonale presence: without acute cor pulmonale Is this a current diagnosis for this admission?: Yes Plan: Eliquis - Time Time Spent: 30 to 50 Minutes Anticipated discharge: Home
[2017-04-21 11:44] LABS: ABSOLUTE EOSINOPHILS # (AUTO) 0.1 10^3/uL (0.0-0.6); ABSOLUTE LYMPHOCYTES (AUTO) 1.4 10^3/uL (0.5-4.7); ABSOLUTE MONOCYTES (AUTO) 0.4 10^3/uL (0.1-1.4); ABSOLUTE NEUT (AUTO) 7.2 10^3/uL (1.7-8.2); BASOPHILS % (AUTO) 0.3 % (0-2); EOSINOPHILS % (AUTO) 0.8 % (0-6); HEMATOCRIT 39.6 % (37.9-51.0); HEMOGLOBIN 13.1 g/dL (13.5-17.0); LYMPHOCYTES % (AUTO) 15.9 % (13-45); MEAN CORPUSCULAR HEMOGLOBIN 29.6 pg (27.0-33.4); MEAN CORPUSCULAR VOLUME 90 fl (80-97); MONOCYTES % (AUTO) 4.6 % (3-13); PLATELET COUNT 157 10^3/uL (150-450); RED BLOOD COUNT 4.42 10^6/uL (4.35-5.55); RED CELL DISTRIBUTION WIDTH 14.8 % (11.5-14.0); SEGMENTED NEUTROPHILS % (AUTO) 78.4 % (42-78); TOTAL CELLS COUNTED % (AUTO) 100 %; WHITE BLOOD COUNT 9.1 10^3/uL (4.0-10.5)
[2017-04-21 11:50] LABS: INTERNATIONAL RATION (INR) 0.88; PROTHROMBIN TIME 12.6 SEC (11.4-15.4)
[2017-04-21 11:51] LABS: APPEARANCE,URINE CLEAR; BILIRUBIN,URINE NEGATIVE (NEGATIVE); COLOR,URINE STRAW; GLUCOSE, URINE NEGATIVE (NEGATIVE); KETONES,URINE NEGATIVE (NEGATIVE); LEUKOCYTE ESTERASE,URINE NEGATIVE (NEGATIVE); NITRITE,URINE NEGATIVE (NEGATIVE); PARTIAL THROMBOPLASTIN TIME 29.4 SEC (23.5-35.8); PROTEIN,URINE NEGATIVE (NEGATIVE); URINE SPECIFIC GRAVITY 1.008; UROBILINOGEN,URINE NEGATIVE mg/dL (<2.0)
[2017-04-21 11:56] LABS: ALANINE AMINOTRANSFERASE 23 U/L (21-72); ALBUMIN 3.7 g/dL (3.5-5.0); ALKALINE PHOSPHATASE 93 U/L (38-126); ANION GAP 11 (5-19); ASPARTATE AMINO TRANSFERASE 21 U/L (17-59); BILIRUBIN,DIRECT 0.3 mg/dL (0.0-0.4); BILIRUBIN,TOTAL 0.4 mg/dL (0.2-1.3); BLOOD UREA NITROGEN 20 mg/dL (7-20); CALCIUM 9.8 mg/dL (8.4-10.2); CARBON DIOXIDE 30 mmol/L (22-30); CHLORIDE 101 mmol/L (98-107); GLUCOSE 141 mg/dL (75-110); MAGNESIUM 1.7 mg/dL (1.6-2.3); POTASSIUM 4.4 mmol/L (3.6-5.0); SODIUM 141.6 mmol/L (137-145); TOTAL PROTEIN 6.3 g/dL (6.3-8.2)
[2017-04-21] MEDS ORDERED: DEXAMETHASONE SOD PHOSPHATE INJ 4 MG/1 ML VIAL ONE (11:56)
[2017-04-21] MEDS ORDERED: LIDOCAINE 2% INJ-PF (20 MG/ML) 2 ML AMPUL ONE (11:56)
[2017-04-21 12:05] LABS: URINE AMPHETAMINES SCREEN NEGATIVE; URINE BARBITURATES SCREEN NEGATIVE; URINE BENZODIAZEPINES SCREEN NEGATIVE; URINE COCAINE SCREEN NEGATIVE; URINE MARIJUANA (THC) SCREEN NEGATIVE; URINE METHADONE SCREEN NEGATIVE; URINE PHENCYCLIDINE SCREEN NEGATIVE
[2017-04-21] MEDS: METHYLPREDNISOLONE INJ 40 MG/1 ML SDV IV SCH ×3 (12:19→23:10)
[2017-04-21] MEDS: DIPHENHYDRAMINE HCL 50 MG/ML VIAL IV SCH ×2 (12:20→23:10)
[2017-04-21] MEDS: RINGERS SOLUTION,LACTATED 1,000 ML IV PRN (12:22)
[2017-04-21] MEDS ORDERED: PROPOFOL 100 ML IV ONE ×2 (12:36→13:37)
--- NOTE | 2017-04-21 13:21 | PDOC CONSULTATION ---
Consultation Consult Date: 04/21/17 Attending physician:: RADHA HUBER Consult reason:: acute resp failure anaphylasis History of Present Illness Admission Date/PCP: 04/21/17 09:52 History of Present Illness: Patient is a 61-year-old gentleman that presented to our facility with complaint of mouth and tongue swelling that began immediately this morning. Received call from ER stating that patient will be emergently intubated by surgery. Patient was seen briefly who reports that he had swelling of the tongue and mouth that began early this morning. Patient states he is on aware of what could potentially cause the problem. Patient's states that he was doing well and then all of a sudden his mouth and tongue started swelling. Patient did state that he had had some chest pain this morning.He was recently patient at [facility] where allegedly he was intubated for 3 days Past Medical History Cardiac Medical History: Reports: Atrial Fibrillation, Congestive Heart Failure , Hyperlipidema, Hypertension, Pulmonary Embolism Denies: Coronary Artery Disease, Myocardial Infarction, Peripheral Vascular Disease, Heart Murmur Pulmonary Medical History: Reports: Asthma, Chronic Obstructive Pulmonary Disease (COPD), Pneumonia - 7 years ago, Sleep Apnea - hx only, not a current problem, no CPAP, Tuberculosis Denies: Bronchitis, Respiratory Failure EENT Medical History: Reports: Throat Denies: Ears, Nose Neurological Medical History: Denies: Migraine, Multiple Sclerosis Endocrine Medical History: Reports: Diabetes Mellitus Type 2, Obesity Denies: Hyperthyroidism, Hypothyroidism Renal/ Medical History: Denies: End Stage Renal Disease, Nephrolithiasis Malignancy Medical History: Denies: Lung Cancer GI Medical History: Reports: Gastroesophageal Reflux Disease, Hepatitis - Hep C Denies: Cirrhosis, Crohn's Disease, Hiatal Hernia, Ulcerative Colitis Musculoskeltal Medical History: Reports: Arthritis Denies: Fibromyalgia Skin Medical History: Denies: Psoriasis Psychiatric Medical History: Denies: Bipolar Disorder, Dementia, Depression, Post Traumatic Stress Disorder Traumatic Medical History: Denies: Traumatic Brain Injury Hematology: Denies: Sickle Cell Disease, Bleeding Tendencies Infectious Medical History: Denies: Hepatitis B, Hepatitis C Past Surgical History Past Surgical History: Reports: Appendectomy, Herniorrhaphy, Orthopedic Surgery - Spinal fusion. Meniscus repair. Denies: Cholecystectomy, Colostomy, Coronary Artery Bypass Graft, Gastric Bypass Surgery, Pacemaker, Tonsillectomy Social History Information Source: [facility] Records Lives with: Family Smoking Status: Unknown if Ever Smoked Passive smoke exposure as: Both Frequency of Alcohol Use: None Hx Recreational Drug Use: No Drugs: Cocaine - Patient admitted to cocaine use when confronted Hx Prescription Drug Abuse: No Do you have pets?: No Have you had any respiratory illnesses as a child?: No Have you been exposed to any sick contacts recently?: No Have you had any recent respiratory illnesses?: No Have you travelled outside of [place] in the past 12 months?: No - Advance Directive Resuscitation Status: Full Code Family History Family History: Arthritis, CAD - Mother and brother, CVA, DM, Hyperlipidemia, Hypertension, Malignancy Parental Family History Reviewed: Yes Children Family History Reviewed: Yes Sibling(s) Family History Reviewed.: Yes Medication/Allergy Home Medications: Amitriptyline HCl [Elavil 75 mg Tablet] 75 mg PO QHS 12/29/16 Amlodipine Besylate [Norvasc 10 mg Tablet] 10 mg PO DAILY 12/29/16 Apixaban [Eliquis 5 mg Tablet] 5 mg PO Q12 12/29/16 Ascorbic Acid [Vitamin C 500 mg Tablet] 500 mg PO DAILY 12/29/16 Ferrous Sulfate [Iron] 325 mg PO DAILY 12/29/16 Gabapentin [Neurontin 100 mg Capsule] 100 mg PO Q8 12/29/16 Hydrochlorothiazide [Hydrodiuril 25 mg Tablet] 25 mg PO DAILY 12/29/16 Insulin Aspart [Novolog Flexpen] 18 units SQ ACBRKFST 12/29/16 Insulin Aspart [Novolog Flexpen] 25 units SQ BIDACLS 12/29/16 Insulin Glargine,Hum.rec.anlog [Lantus Solostar] 60 units SQ QHS 12/29/16 Metformin HCl [Glucophage] 1,000 mg PO BID 12/29/16 Metoprolol Tartrate [Lopressor 25 mg Tablet] 25 mg PO Q12 12/29/16 Pravastatin Sodium [Pravachol] 20 mg PO QHS 12/29/16 Ranitidine HCl [Zantac 150 mg Tablet] 150 mg PO QHS 12/29/16 Terazosin HCl [Hytrin] 4 mg PO QHS 12/29/16 Tramadol HCl [Ultram 50 mg Tablet] 50 mg PO Q8 12/29/16 Furosemide [Lasix 20 mg Tablet] 20 mg PO DAILY 03/26/17 Isosorbide Mononitrate [Imdur 30 mg Tablet.er] 30 mg PO DAILY 03/26/17 Omeprazole 20 mg PO BID 03/26/17 Allergies/Adverse Reactions: codeine [Codeine] Allergy (Severe, Verified 04/21/17 09:33) Facial swelling hydrocodone bitartrate [From Vicodin] Allergy (Severe, Verified 04/21/17 09:33) Anaphylaxis lisinopril Allergy (Severe, Verified 04/21/17 09:33) Anaphylaxis hydromorphone [From Dilaudid] Allergy (Verified 04/21/17 09:33) Difficulty breathing Iodine and Iodide Containing Produc Allergy (Verified 04/21/17:33) Anaphylaxis morphine Allergy (Verified 04/21/17:33) Itching oxycodone Allergy (Verified 04/21/17 09:33) Swelling of tongue shellfish derived Allergy (Verified 04/21/17 09:33) Anaphylaxis Review of Systems ROS unobtainable: Due to endotracheal tube Constitutional: ABSENT: anorexia, chills, fatigue, fever(s), headache(s), weakness Eyes: ABSENT: visual disturbances Ears: ABSENT: hearing changes Nose, Mouth, and Throat: ABSENT: headache(s), sore throat, vertigo Cardiovascular: ABSENT: chest pain, dyspnea on exertion, edema Respiratory: PRESENT: cough. ABSENT: hemoptysis Gastrointestinal: ABSENT: abdominal pain, bloating, coffee ground emesis, heartburn, hematemesis, melena Genitourinary: ABSENT: difficulty urinating, hematuria Musculoskeletal: ABSENT: joint swelling Integumentary: ABSENT: pruritus, rash Neurological: ABSENT: abnormal gait, abnormal movements, abnormal speech, dizziness Physical Exam Vital Signs: Temp Pulse Resp BP Pulse Ox 98.6 F 85 26 H 141/93 H 98 04/21/17 09:20 04/21/17 09:20 04/21/17 09:20 04/21/17 09:20 04/21/17 09:58 General appearance: PRESENT: no acute distress, disheveled, morbidly obese. ABSENT: cooperative, mild distress, obese, severe distress, thin Head exam: PRESENT: atraumatic, normocephalic Eye exam: PRESENT: conjunctiva pale. ABSENT: conjunctival injection, conjunctiva pink, EOMI, nystagmus, periorbital swelling, scleral icterus Mouth exam: PRESENT: dry mucosa, neck supple, tongue midline, other - ET tube. ABSENT: laceration, moist Teeth exam: PRESENT: poor dentation Neck exam: ABSENT: carotid bruit, JVD, lymphadenopathy, thyromegaly, tracheal deviation, tracheostomy Respiratory exam: PRESENT: decreased breath sounds, prolonged expiratory phas, rales, rhonchi, symmetrical, unlabored, wheezes. ABSENT: accessory muscle use, chest wall tenderness, clear to auscultation angelina, crackles, retraction, stridor , tachypnea Cardiovascular exam: PRESENT: RRR, +S1, +S2 Pulses: PRESENT: normal radial pulses GI/Abdominal exam: PRESENT: normal bowel sounds, soft. ABSENT: distended, guarding, mass, organolmegaly, rebound, tenderness Gentrourinary exam: PRESENT: indwelling catheter Extremities exam: PRESENT: +1 edema. ABSENT: clubbing Musculoskeletal exam: ABSENT: deformity, dislocation Neurological exam: ABSENT: alert Skin exam: PRESENT: dry, warm Assessment & Plan - Diagnosis (1) Angioedema Qualifiers: Encounter type: subsequent encounter Qualified Code(s): T78.3XXD - Angioneurotic edema, subsequent encounter Is this a current diagnosis for this admission?: Yes (2) Acute respiratory failure Qualifiers: Respiratory failure complication: hypoxia and hypercapnia Qualified Code(s) : J96.01 - Acute respiratory failure with hypoxia Is this a current diagnosis for this admission?: Yes (3) Anaphylaxis Qualifiers: Encounter type: initial encounter Qualified Code(s): T78.2XXA - Anaphylactic shock, unspecified, initial encounter Is this a current diagnosis for this admission?: Yes (4) COPD (chronic obstructive pulmonary disease) Qualifiers: COPD type: unspecified COPD Qualified Code(s): J44.9 - Chronic obstructive pulmonary disease, unspecified Is this a current diagnosis for this admission?: Yes (5) Obesity (BMI 30-39.9) Qualifiers: Obesity type: due to excess calories Qualified Code(s): E66.01 - Morbid ( severe) obesity due to excess calories Is this a current diagnosis for this admission?: Yes - Time Time Spent with patient: 50
[2017-04-21] MEDS: PROPOFOL 100 ML IV PRN ×5 (15:15→23:10)
[2017-04-21] MEDS: APIXABAN 5 MG TABLET PO SCH (17:57)
[2017-04-21 17:58] LABS: ARTERIAL BLOOD BASE EXCESS 3.2 mmol/L; ARTERIAL BLOOD H2CO3 1.56 mmol/L (1.05-1.35); ARTERIAL BLOOD HCO3 29.4 mmol/L (20-26); ARTERIAL BLOOD O2 SATURATION 86.1 % (94-98); ARTERIAL BLOOD PCO2 51.9 mmHg (35-45); ARTERIAL BLOOD PH 7.37 (7.35-7.45); ARTERIAL BLOOD PO2 53.1 mmHg (80-100)
[2017-04-21 18:05] LABS: ARTERIAL BLOOD FIO2 35%
[2017-04-21] MEDS: FAMOTIDINE INJ/PF 20 MG/2 ML SDV IV SCH (23:09)
[2017-04-22] MEDS: PROPOFOL 100 ML IV PRN ×5 (00:36→06:47)
[2017-04-22] MEDS: INSULIN LISPRO 100 UNIT/ML 3 ML VIAL SUBCUT PRN ×4 (00:55→23:04)
[2017-04-22 04:52] LABS: ABSOLUTE MONOCYTES (AUTO) 0.7 10^3/uL (0.1-1.4); ABSOLUTE NEUT (AUTO) 11.5 10^3/uL (1.7-8.2); BASOPHILS % (AUTO) 0.2 % (0-2); HEMATOCRIT 37.7 % (37.9-51.0); HEMOGLOBIN 12.4 g/dL (13.5-17.0); LYMPHOCYTES % (AUTO) 7.3 % (13-45); MEAN CORPUSCULAR HEMOGLOBIN 29.1 pg (27.0-33.4); MEAN CORPUSCULAR HGB CONC 32.9 g/dL (32.0-36.0); MEAN CORPUSCULAR VOLUME 88 fl (80-97); MONOCYTES % (AUTO) 5.1 % (3-13); PLATELET COUNT 148 10^3/uL (150-450); RED BLOOD COUNT 4.27 10^6/uL (4.35-5.55); RED CELL DISTRIBUTION WIDTH 14.5 % (11.5-14.0); SEGMENTED NEUTROPHILS % (AUTO) 87.4 % (42-78); TOTAL CELLS COUNTED % (AUTO) 100 %; WHITE BLOOD COUNT 13.1 10^3/uL (4.0-10.5)
[2017-04-22 05:08] LABS: ANION GAP 11 (5-19); BLOOD UREA NITROGEN 22 mg/dL (7-20); CALCIUM 8.8 mg/dL (8.4-10.2); CARBON DIOXIDE 24 mmol/L (22-30); CHLORIDE 99 mmol/L (98-107); GLUCOSE 245 mg/dL (75-110); MAGNESIUM 1.6 mg/dL (1.6-2.3); POTASSIUM 4.1 mmol/L (3.6-5.0)
[2017-04-22] MEDS: RINGERS SOLUTION,LACTATED 1,000 ML IV PRN ×2 (05:41→23:10)
[2017-04-22] MEDS: METHYLPREDNISOLONE INJ 40 MG/1 ML SDV IV SCH ×4 (05:42→23:04)
[2017-04-22] MEDS: DIPHENHYDRAMINE HCL 50 MG/ML VIAL IV SCH ×3 (05:42→21:16)
[2017-04-22 06:21] LABS: ARTERIAL BLOOD BASE EXCESS 1.6 mmol/L; ARTERIAL BLOOD H2CO3 1.31 mmol/L (1.05-1.35); ARTERIAL BLOOD HCO3 26.6 mmol/L (20-26); ARTERIAL BLOOD PCO2 43.5 mmHg (35-45); ARTERIAL BLOOD PO2 69.7 mmHg (80-100); ARTERIAL BLOOD TOTAL CO2 27.9 mmol/L (23-27)
--- NOTE | 2017-04-22 07:22 | RADIOLOGY REPORT (SQ) ---
EXAM DESCRIPTION: CHEST SINGLE VIEW CLINICAL HISTORY: RESP FAILURE COMPARISON: None. FINDINGS: Endotracheal tube with tip 6 cm above the marilyn. NG tube with tip below the diaphragm. Leads overlie the chest. Low lung volumes. Cardiomegaly. Bibasilar linear opacities and possible small left pleural effusion. No pneumothorax. Osseous structures and abdominal soft tissues are stable. IMPRESSION: Overall no significant interval change.
[2017-04-22] MEDS: FAMOTIDINE INJ/PF 20 MG/2 ML SDV IV SCH ×2 (10:59→21:16)
[2017-04-22] MEDS: APIXABAN 5 MG TABLET PO SCH ×2 (11:00→17:58)
[2017-04-22] MEDS ORDERED: ACETAMINOPHEN 650 MG SUPP.RECT PR PRN (11:00)
[2017-04-22] MEDS ORDERED: DEXAMETHASONE SOD PHOS INJ 10 MG/1 ML VIAL IV ONE (11:00)
[2017-04-22] MEDS ORDERED: ONDANSETRON HCL INJ/PF 4 MG/2 ML SDV IV PRN (11:00)
[2017-04-22] MEDS: ACETAMINOPHEN 325 MG TABLET PO PRN (18:00)
--- NOTE | 2017-04-22 18:17 | PDOC PROGRESS REPORT ---
Subjective Progress Note for:: 04/22/17 Subjective:: ET tube in place intubated and awake Reason For Visit: ANGIOEDEMA SECONDARY TO MEDICATION Physical Exam Vital Signs: Temp Pulse Resp BP Pulse Ox 98.4 F 96 19 108/76 96 04/22/17 08:00 04/22/17 08:00 04/22/17 08:00 04/22/17 08:00 04/22/17 08:12 Intake & Output 04/21/17 04/22/17 04/23/17 06:59 06:59 06:59 Intake Total 1169 Output Total 2770 150 Balance -1601 -150 Weight 136.9 kg General appearance: PRESENT: no acute distress, cooperative, disheveled, morbidly obese. ABSENT: mild distress, obese, severe distress Head exam: PRESENT: atraumatic, normocephalic Eye exam: PRESENT: conjunctiva pale, EOMI. ABSENT: conjunctival injection, conjunctiva pink, nystagmus, periorbital swelling Mouth exam: PRESENT: dry mucosa, neck supple, tongue midline, other - ET tube in place. ABSENT: laceration, moist Neck exam: ABSENT: carotid bruit, JVD, lymphadenopathy, thyromegaly, tracheal deviation, tracheostomy Respiratory exam: PRESENT: decreased breath sounds, prolonged expiratory phas, rhonchi, symmetrical, unlabored. ABSENT: accessory muscle use, chest wall tenderness, clear to auscultation angelina, crackles, rales, retraction, stridor, tachypnea Cardiovascular exam: PRESENT: RRR, +S1, +S2 Pulses: PRESENT: normal radial pulses GI/Abdominal exam: PRESENT: diminished bowel sounds, soft Gentrourinary exam: PRESENT: indwelling catheter Extremities exam: ABSENT: clubbing, full ROM, joint swelling Musculoskeletal exam: ABSENT: ambulatory, deformity, dislocation, full ROM Neurological exam: PRESENT: alert, awake Psychiatric exam: PRESENT: normal mood Skin exam: PRESENT: dry, warm Results Laboratory Results: 04/22/17 04:34 04/22/17 04:34 04/21/17 04/21/17 04/21/17 10:30 11:30 11:30 WBC 9.1 RBC 4.42 Hgb 13.1 L Hct 39.6 MCV 90 MCH 29.6 MCHC 33.0 RDW 14.8 H Plt Count 157 Seg Neutrophils % 78.4 H Lymphocytes % 15.9 Monocytes % 4.6 Eosinophils % 0.8 Basophils % 0.3 Absolute Neutrophils 7.2 Absolute Lymphocytes 1.4 Absolute Monocytes 0.4 Absolute Eosinophils 0.1 Absolute Basophils 0.0 Carbonic Acid 1.85 H HCO3/H2CO3 Ratio 15:1 ABG pH 7.30 L ABG pCO2 61.3 H ABG pO2 118.4 H ABG HCO3 29.3 H ABG O2 Saturation 97.8 ABG Base Excess 1.5 FiO2 60% Sodium Potassium Chloride Carbon Dioxide Anion Gap BUN Creatinine Est GFR ( Amer) Est GFR (Non-Af Amer) Glucose Calcium Magnesium Total Bilirubin AST ALT Alkaline Phosphatase Total Protein Albumin Urine Color STRAW Urine Appearance CLEAR Urine pH 8.0 Ur Specific [place] 1.008 Urine Protein NEGATIVE Urine Glucose (UA) NEGATIVE Urine Ketones NEGATIVE Urine Blood NEGATIVE Urine Nitrite NEGATIVE Ur Leukocyte Esterase NEGATIVE Urine RBC (Auto) 0 04/21/17 04/21/17 04/22/17 11:30 17:45 04:34 WBC 13.1 H RBC 4.27 L Hgb 12.4 L Hct 37.7 L MCV 88 MCH 29.1 MCHC 32.9 RDW 14.5 H Plt Count 148 L Seg Neutrophils % 87.4 H Lymphocytes % 7.3 L Monocytes % 5.1 Eosinophils % 0.0 Basophils % 0.2 Absolute Neutrophils 11.5 H Absolute Lymphocytes 1.0 Absolute Monocytes 0.7 Absolute Eosinophils 0.0 Absolute Basophils 0.0 Carbonic Acid 1.56 H HCO3/H2CO3 Ratio 18:1 ABG pH 7.37 ABG pCO2 51.9 H ABG pO2 53.1 L ABG HCO3 29.4 H ABG O2 Saturation 86.1 L ABG Base Excess 3.2 FiO2 35% Sodium 141.6 Potassium 4.4 Chloride 101 Carbon Dioxide 30 Anion Gap 11 BUN 20 Creatinine 0.70 Est GFR ( Amer) > 60 Est GFR (Non-Af Amer) > 60 Glucose 141 H Calcium 9.8 Magnesium 1.7 Total Bilirubin 0.4 AST 21 ALT 23 Alkaline Phosphatase 93 Total Protein 6.3 Albumin 3.7 Urine Color Urine Appearance Urine pH Ur Specific [place] Urine Protein Urine Glucose (UA) Urine Ketones Urine Blood Urine Nitrite Ur Leukocyte Esterase Urine RBC (Auto) 04/22/17 04/22/17 04:34 05:56 WBC RBC Hgb Hct MCV MCH MCHC RDW Plt Count Seg Neutrophils % Lymphocytes % Monocytes % Eosinophils % Basophils % Absolute Neutrophils Absolute Lymphocytes Absolute Monocytes Absolute Eosinophils Absolute Basophils Carbonic Acid 1.31 HCO3/H2CO3 Ratio 20:1 ABG pH 7.40 ABG pCO2 43.5 ABG pO2 69.7 L ABG HCO3 26.6 H ABG O2 Saturation 94.0 ABG Base Excess 1.6 FiO2 35 % Sodium 134.0 L Potassium 4.1 Chloride 99 Carbon Dioxide 24 Anion Gap 11 BUN 22 H Creatinine 0.63 Est GFR ( Amer) > 60 Est GFR (Non-Af Amer) > 60 Glucose 245 H Calcium 8.8 Magnesium 1.6 Total Bilirubin AST ALT Alkaline Phosphatase Total Protein Albumin Urine Color Urine Appearance Urine pH Ur Specific [place] Urine Protein Urine Glucose (UA) Urine Ketones Urine Blood Urine Nitrite Ur Leukocyte Esterase Urine RBC (Auto) Impressions: KUB X-Ray 04/21/17 10:53 IMPRESSION: Appropriate nasogastric tube. Assessment & Plan - Diagnosis (1) Angioedema Qualifiers: Encounter type: subsequent encounter Qualified Code(s): T78.3XXD - Angioneurotic edema, subsequent encounter Is this a current diagnosis for this admission?: Yes Plan: Rapidly resolving (2) Acute respiratory failure Qualifiers: Respiratory failure complication: hypoxia and hypercapnia Qualified Code(s) : J96.01 - Acute respiratory failure with hypoxia; J96.02 - Acute respiratory failure with hypercapnia; J96.02 - Acute respiratory failure with hypercapnia; J96.02 - Acute respiratory failure with hypercapnia Is this a current diagnosis for this admission?: Yes Plan: Minute volume respiratory rate FiO2 all suggest successful extubation will proceed with extubation oral airway appears to be clear (3) Anaphylaxis Qualifiers: Encounter type: initial encounter Qualified Code(s): T78.2XXA - Anaphylactic shock, unspecified, initial encounter Is this a current diagnosis for this admission?: Yes (4) COPD (chronic obstructive pulmonary disease) Qualifiers: COPD type: unspecified COPD Qualified Code(s): J44.9 - Chronic obstructive pulmonary disease, unspecified Is this a current diagnosis for this admission?: Yes Plan: Continue current bronchodilator therapy (5) Obesity (BMI 30-39.9) Qualifiers: Obesity type: due to excess calories Is this a current diagnosis for this admission?: Yes - Time Total Critical Time (Minutes): 55
--- NOTE | 2017-04-22 20:42 | PDOC PROGRESS REPORT ---
Subjective Progress Note for:: 04/22/17 Subjective:: She was seen earlier this morning when he was intubated however patient was seen later once he was extubated. Patient was asking to eat. Patient's is at bedside stating that she wanted to know when he would be able to go home. Reason For Visit: ANGIOEDEMA SECONDARY TO MEDICATION Physical Exam Vital Signs: Temp Pulse Resp BP Pulse Ox 98.5 F 111 H 20 135/75 H 97 04/22/17 19:24 04/22/17 18:00 04/22/17 18:09 04/22/17 18:09 04/22/17 18:09 Intake & Output 04/21/17 04/22/17 04/23/17 06:59 06:59 06:59 Intake Total 1169 787 Output Total 2770 1980 Balance -1601 -1193 Weight 136.9 kg General appearance: PRESENT: no acute distress, well-developed, well-nourished Head exam: PRESENT: atraumatic, normocephalic Eye exam: PRESENT: conjunctiva pink, EOMI. ABSENT: scleral icterus Ear exam: PRESENT: normal external ear exam Mouth exam: PRESENT: moist, tongue midline Neck exam: ABSENT: carotid bruit, JVD, lymphadenopathy, thyromegaly Respiratory exam: PRESENT: clear to auscultation angelina. ABSENT: rales, rhonchi, wheezes Cardiovascular exam: PRESENT: RRR. ABSENT: diastolic murmur, rubs, systolic murmur Pulses: PRESENT: normal dorsalis pedis pul Vascular exam: PRESENT: normal capillary refill GI/Abdominal exam: PRESENT: normal bowel sounds, soft. ABSENT: distended, guarding, mass, organolmegaly, rebound, tenderness Rectal exam: PRESENT: deferred Extremities exam: PRESENT: full ROM. ABSENT: calf tenderness, clubbing, pedal edema Neurological exam: PRESENT: alert, awake, oriented to person, oriented to place , oriented to time, oriented to situation, CN II-XII grossly intact. ABSENT: motor sensory deficit Psychiatric exam: PRESENT: appropriate affect, normal mood. ABSENT: homicidal ideation, suicidal ideation Skin exam: PRESENT: dry, intact, warm. ABSENT: cyanosis, rash Results Laboratory Results: 04/22/17 04:34 04/22/17 04:34 04/22/17 04/22/17 04/22/17 04:34 04:34 05:56 WBC 13.1 H RBC 4.27 L Hgb 12.4 L Hct 37.7 L MCV 88 MCH 29.1 MCHC 32.9 RDW 14.5 H Plt Count 148 L Seg Neutrophils % 87.4 H Lymphocytes % 7.3 L Monocytes % 5.1 Eosinophils % 0.0 Basophils % 0.2 Absolute Neutrophils 11.5 H Absolute Lymphocytes 1.0 Absolute Monocytes 0.7 Absolute Eosinophils 0.0 Absolute Basophils 0.0 Carbonic Acid 1.31 HCO3/H2CO3 Ratio 20:1 ABG pH 7.40 ABG pCO2 43.5 ABG pO2 69.7 L ABG HCO3 26.6 H ABG O2 Saturation 94.0 ABG Base Excess 1.6 FiO2 35 % Sodium 134.0 L Potassium 4.1 Chloride 99 Carbon Dioxide 24 Anion Gap 11 BUN 22 H Creatinine 0.63 Est GFR ( Amer) > 60 Est GFR (Non-Af Amer) > 60 Glucose 245 H Calcium 8.8 Magnesium 1.6 Impressions: KUB X-Ray 04/21/17 10:53 IMPRESSION: Appropriate nasogastric tube. Assessment & Plan - Diagnosis (1) Angioedema Qualifiers: Encounter type: subsequent encounter Qualified Code(s): T78.3XXD - Angioneurotic edema, subsequent encounter Is this a current diagnosis for this admission?: Yes Plan: Status post extubation: Doing well patient allowed to eat. Will continue current treatment. (2) Acute respiratory failure Qualifiers: Respiratory failure complication: hypoxia and hypercapnia Qualified Code(s) : J96.01 - Acute respiratory failure with hypoxia; J96.02 - Acute respiratory failure with hypercapnia; J96.02 - Acute respiratory failure with hypercapnia; J96.02 - Acute respiratory failure with hypercapnia Is this a current diagnosis for this admission?: Yes Plan: angioedema status post intubation S/P extubation: Resolved. Will continue current medication. (3) Anaphylaxis Qualifiers: Encounter type: initial encounter Qualified Code(s): T78.2XXA - Anaphylactic shock, unspecified, initial encounter Is this a current diagnosis for this admission?: Yes Plan: Resolved. Will continue current medication. (4) Cocaine abuse Is this a current diagnosis for this admission?: Yes Plan: History of cocaine abuse: tox screen neg. (5) Obesity (BMI 30-39.9) Qualifiers: Obesity type: due to excess calories Is this a current diagnosis for this admission?: Yes Plan: Encourage dietary changes. (6) Pulmonary embolism Qualifiers: Chronicity: unspecified Acute cor pulmonale presence: without acute cor pulmonale Is this a current diagnosis for this admission?: Yes Plan: Eliquis - Time Time Spent with patient: 15-24 minutes
[2017-04-22] MEDS: BUDESONIDE/FORMOTEROL 160-4.5 MCG 60 PUFF/6 GM MDI IH SCH (21:17)
[2017-04-22] MEDS ORDERED: FLUTICASONE NASAL SPRAY 50 MCG/SPRY 120 SPRAY/16 GM NAREB SCH (22:00)
[2017-04-23] MEDS: ACETAMINOPHEN 325 MG TABLET PO PRN ×2 (03:45→09:22)
[2017-04-23 04:25] LABS: ARTERIAL BLOOD BASE EXCESS 3.2 mmol/L; ARTERIAL BLOOD FIO2 2L; ARTERIAL BLOOD H2CO3 1.19 mmol/L (1.05-1.35); ARTERIAL BLOOD HCO3 27.3 mmol/L (20-26); ARTERIAL BLOOD O2 SATURATION 96.4 % (94-98); ARTERIAL BLOOD PCO2 39.5 mmHg (35-45); ARTERIAL BLOOD PH 7.46 (7.35-7.45); ARTERIAL BLOOD PO2 80.6 mmHg (80-100); ARTERIAL BLOOD TOTAL CO2 28.5 mmol/L (23-27)
[2017-04-23 05:14] LABS: ABSOLUTE LYMPHOCYTES (AUTO) 0.8 10^3/uL (0.5-4.7); ABSOLUTE NEUT (AUTO) 13.2 10^3/uL (1.7-8.2); BASOPHILS % (AUTO) 0.1 % (0-2); HEMATOCRIT 38.3 % (37.9-51.0); HEMOGLOBIN 12.5 g/dL (13.5-17.0); LYMPHOCYTES % (AUTO) 5.4 % (13-45); MEAN CORPUSCULAR HEMOGLOBIN 29.1 pg (27.0-33.4); MEAN CORPUSCULAR HGB CONC 32.6 g/dL (32.0-36.0); MEAN CORPUSCULAR VOLUME 89 fl (80-97); MONOCYTES % (AUTO) 6.9 % (3-13); PLATELET COUNT 133 10^3/uL (150-450); RED CELL DISTRIBUTION WIDTH 14.8 % (11.5-14.0); SEGMENTED NEUTROPHILS % (AUTO) 87.6 % (42-78); TOTAL CELLS COUNTED % (AUTO) 100 %; WHITE BLOOD COUNT 15.1 10^3/uL (4.0-10.5)
[2017-04-23] MEDS: METHYLPREDNISOLONE INJ 40 MG/1 ML SDV IV SCH (05:28)
[2017-04-23] MEDS: DIPHENHYDRAMINE HCL 50 MG/ML VIAL IV SCH (05:28)
[2017-04-23] MEDS: INSULIN LISPRO 100 UNIT/ML 3 ML VIAL SUBCUT PRN ×2 (05:29→11:52)
[2017-04-23 05:37] LABS: ALANINE AMINOTRANSFERASE 24 U/L (21-72); ALBUMIN 3.4 g/dL (3.5-5.0); ALKALINE PHOSPHATASE 67 U/L (38-126); ANION GAP 7 (5-19); ASPARTATE AMINO TRANSFERASE 23 U/L (17-59); BILIRUBIN,DIRECT 0.2 mg/dL (0.0-0.4); BILIRUBIN,TOTAL 0.3 mg/dL (0.2-1.3); BLOOD UREA NITROGEN 19 mg/dL (7-20); CALCIUM 8.3 mg/dL (8.4-10.2); CARBON DIOXIDE 29 mmol/L (22-30); CHLORIDE 105 mmol/L (98-107); GLUCOSE 263 mg/dL (75-110); MAGNESIUM 2.1 mg/dL (1.6-2.3); PHOSPHORUS 3.3 mg/dL (2.5-4.5); POTASSIUM 4.1 mmol/L (3.6-5.0); SODIUM 141.1 mmol/L (137-145); TOTAL PROTEIN 5.9 g/dL (6.3-8.2)
--- NOTE | 2017-04-23 07:24 | RADIOLOGY REPORT (SQ) ---
EXAM DESCRIPTION: CHEST SINGLE VIEW CLINICAL HISTORY: acute resp failure COMPARISON: 04/23/2017 FINDINGS: Single view of the chest. Interval removal of endotracheal tube and NG tube. Leads overlie the chest. Low lung volumes. Cardiomegaly. Bibasilar linear opacities and possible small left pleural effusion. Improved aeration of the right lung base. No pneumothorax. Osseous structures and abdominal soft tissues are stable. IMPRESSION: 1. Improved aeration of the right lung base. Interval removal of endotracheal tube and NG tube. Electronically signed by: Mikal Morse 04/23/2017 6:23 AM
[2017-04-23] MEDS: APIXABAN 5 MG TABLET PO SCH (09:10)
[2017-04-23] MEDS: FAMOTIDINE INJ/PF 20 MG/2 ML SDV IV SCH (09:11)
[2017-04-23] MEDS: BUDESONIDE/FORMOTEROL 160-4.5 MCG 60 PUFF/6 GM MDI IH SCH (09:14)
[2017-04-23] MEDS ORDERED: DIPHENHYDRAMINE HCL 25 MG CAPSULE PO PRN (10:19)
--- NOTE | 2017-04-23 16:40 | PDOC DISCHARGE SUMMARY ---
General - Admit/Disc Date/PCP Admission Date/Primary Care Provider: 04/21/17 09:52 Discharge Date: 04/23/17 - Discharge Diagnosis (1) Angioedema Is this a current diagnosis for this admission?: Yes Summary: Etiology not clear however patient was told to stop taking his aspirin. Patient will need a follow-up with manager occupational to help determine what is causing patient's angioedema. Patient does not give history of family history of angioedema i.e. hereditary angioedema. Not sure if this is related to prescription medication or patient street drug habit. (2) Acute respiratory failure Is this a current diagnosis for this admission?: Yes Summary: Secondary to acute angioedema: Patient was told to stop taking aspirin which could cause anaphylaxis. The cause of patient's angioedema is still not clear therefore patient will need to follow with manager occupational to help determine possible etiologies. (3) Anaphylaxis Is this a current diagnosis for this admission?: Yes Summary: Discharged on EpiPen, Benadryl, steroids, H2 renetta (4) Cocaine abuse Is this a current diagnosis for this admission?: Yes Summary: Pt told to discontinue cocaine use and other street drugs (5) Obesity (BMI 30-39.9) Is this a current diagnosis for this admission?: Yes Summary: Encourage dietary changes (6) Pulmonary embolism Is this a current diagnosis for this admission?: Yes Summary: Patient will continue Eliquis - Additional Information Resuscitation Status: Full Code Discharge Diet: Cardiac, Diabetic Discharge Activity: Activity As Tolerated Prescriptions: Fluticasone Propionate [Flonase Nasal Gunter 50 Mcg/Gunter 16 gm] 1 spray NAREB QHS #1 spray.pump Methylprednisolone [Medrol Dosepack (4 mg/Tab) 21 Tab/Dosepak] 4 mg PO ASDIR PRN #21 tab.ds.pk PRN Reason: Home Medications: Albuterol Sulfate [Proair HFA Inhalation Aerosol 8.5 gm MDI] 2 puff IH Q6HP PRN 04/22/17 Amitriptyline HCl [Elavil 25 mg Tablet] 75 mg PO QHS 04/22/17 Amlodipine Besylate [Norvasc 10 mg Tablet] 10 mg PO DAILY 04/22/17 Apixaban [Eliquis 5 mg Tablet] 5 mg PO Q12 04/22/17 Ascorbic Acid [Vitamin C 500 mg Tablet] 500 mg PO DAILY 04/22/17 Budesonide/Formoterol Fumarate [Symbicort HFA 160-4.5 mcg Inhaler 6 gm] 2 puff IH Q12 04/22/17 Dextrose [Glucose] 16 gm PO ASDIR PRN 04/22/17 Epinephrine [Epipen 2-Norbert] 0.3 mg IM ASDIR PRN 04/22/17 Ferrous Sulfate [Feosol 325 mg Tablet] 325 mg PO DAILY 04/22/17 Fluticasone Propionate [Flonase Nasal Gunter 50 Mcg/Gunter 16 gm] 1 spray NAREB DAILY 04/22/17 Furosemide [Lasix 20 mg Tablet] 20 mg PO QAM 04/22/17 Gabapentin [Neurontin 100 mg Capsule] 100 mg PO Q8 04/22/17 Hydrochlorothiazide [Hydrodiuril 25 mg Tablet] 25 mg PO QAM 04/22/17 Insulin Aspart [Novolog Flexpen] 18 unit SUBCUT ACBRKFST 04/22/17 Insulin Aspart [Novolog Flexpen] 25 unit SUBCUT BIDACLS 04/22/17 Insulin Glargine,Hum.rec.anlog [Lantus] 60 unit SQ QHS 04/22/17 Isosorbide Mononitrate [Imdur 30 mg Tablet.er] 30 mg PO QAM 04/22/17 Metformin HCl [Glucophage 500 mg Tablet] 1,000 mg PO BIDACBS 04/22/17 Metoprolol Tartrate [Lopressor 25 mg Tablet] 25 mg PO Q12 04/22/17 Omeprazole 40 mg PO QAM 04/22/17 Pravastatin Sodium [Pravachol] 20 mg PO QHS 04/22/17 Ranitidine HCl [Zantac 150 mg Tablet] 150 mg PO QHS 04/22/17 Sildenafil Citrate [Viagra] 100 mg PO ASDIR PRN 04/22/17 Terazosin HCl [Hytrin] 4 mg PO QHS 04/22/17 Tiotropium [place] [Spiriva Handihaler 18 mcg/dose (30 Dose)] 1 cap IH DAILY 02/27 Tramadol HCl [Ultram 50 mg Tablet] 50 mg PO Q6HP PRN 04/22/17 Apixaban [Eliquis 5 mg Tablet] 5 mg PO BID tablet 04/23/17 Budesonide/Formoterol Fumarate [Symbicort HFA 160-4.5 mcg Inhaler 6 gm] 2 puff IH Q12 inhaler 04/23/17 Diphenhydramine HCl [Benadryl 25 mg Capsule] 25 mg PO Q8HP PRN capsule Fluticasone Propionate [Flonase Nasal Gunter 50 Mcg/Gunter 16 gm] 1 spray NAREB QHS #1 spray.pump 04/23/17 Methylprednisolone [Medrol Dosepack (4 mg/Tab) 21 Tab/Dosepak] 4 mg PO ASDIR PRN #21 tab.ds.pk 04/23/17 History of Present Illness Patient complains of: Tongue and mouth swelling History of Present Illness: Patient is a 61-year-old gentleman that presented to our facility with complaint of mouth and tongue swelling that began immediately this morning. Received call from ER stating that patient will be emergently intubated by surgery. Patient was seen briefly who reports that he had swelling of the tongue and mouth that began early this morning. Patient states he is on aware of what could potentially cause the problem. Patient's states that he was doing well and then all of a sudden his mouth and tongue started swelling. Patient did state that he had had some chest pain this morning. Hospital Course Hospital Course: Patient is a 61-year-old gentleman that was admitted to our facility due to perioral edema as well as tongue swelling. Decision was made in the emergency room the patient needs to be emergently intubated therefore patient was intubated. Patient's vent settings were managed by Dr. Humphries. Patient was subsequently extubated the next following day. Patient has been maintained on steroids, Benadryl, and H2 renetta. Patient was instructed that he would need to follow-up with manager occupational. Patient was told to stop taking his aspirin due to possible reaction to NSAIDs Physical Exam Vital Signs: Temp Pulse Resp BP Pulse Ox 99.6 F 113 H 18 143/94 H 100 04/23/17 12:00 04/23/17 12:00 04/23/17 14:11 04/23/17 14:11 04/23/17 14:11 Intake & Output 04/22/17 04/23/17 04/24/17 06:59 06:59 06:59 Intake Total 1169 1358 888 Output Total 7984 5132 1100 Balance -1601 -3822 -212 Weight 136.9 kg 135.4 kg 135.4 kg General appearance: PRESENT: no acute distress, well-developed, well-nourished Head exam: PRESENT: atraumatic, normocephalic Eye exam: PRESENT: conjunctiva pink, EOMI, PERRLA. ABSENT: scleral icterus Ear exam: PRESENT: normal external ear exam Mouth exam: PRESENT: moist, tongue midline Neck exam: ABSENT: carotid bruit, JVD, lymphadenopathy, thyromegaly Respiratory exam: PRESENT: clear to auscultation angelina. ABSENT: rales, rhonchi, wheezes Cardiovascular exam: PRESENT: RRR. ABSENT: diastolic murmur, rubs, systolic murmur Pulses: PRESENT: normal dorsalis pedis pul Vascular exam: PRESENT: normal capillary refill GI/Abdominal exam: PRESENT: normal bowel sounds, soft. ABSENT: distended, guarding, mass, organolmegaly, rebound, tenderness Rectal exam: PRESENT: deferred Extremities exam: ABSENT: calf tenderness, clubbing, pedal edema Musculoskeletal exam: PRESENT: ambulatory Neurological exam: PRESENT: alert, awake, oriented to person, oriented to place , oriented to time, oriented to situation, CN II-XII grossly intact. ABSENT: motor sensory deficit Psychiatric exam: PRESENT: appropriate affect, normal mood. ABSENT: homicidal ideation, suicidal ideation Skin exam: PRESENT: dry, intact, warm. ABSENT: cyanosis, rash Results Laboratory Results: 04/23/17 04:40 04/23/17 04:40 04/23/17 04/23/17 04/23/17 03:59 04:40 04:40 WBC 15.1 H RBC 4.30 L Hgb 12.5 L Hct 38.3 MCV 89 MCH 29.1 MCHC 32.6 RDW 14.8 H Plt Count 133 L Seg Neutrophils % 87.6 H Lymphocytes % 5.4 L Monocytes % 6.9 Eosinophils % 0.0 Basophils % 0.1 Absolute Neutrophils 13.2 H Absolute Lymphocytes 0.8 Absolute Monocytes 1.0 Absolute Eosinophils 0.0 Absolute Basophils 0.0 Carbonic Acid 1.19 HCO3/H2CO3 Ratio 22:1 ABG pH 7.46 H ABG pCO2 39.5 ABG pO2 80.6 ABG HCO3 27.3 H ABG O2 Saturation 96.4 ABG Base Excess 3.2 FiO2 2L Sodium 141.1 Potassium 4.1 Chloride 105 Carbon Dioxide 29 Anion Gap 7 BUN 19 Creatinine 0.68 Est GFR ( Amer) > 60 Est GFR (Non-Af Amer) > 60 Glucose 263 H Calcium 8.3 L Phosphorus 3.3 Magnesium 2.1 Total Bilirubin 0.3 AST 23 ALT 24 Alkaline Phosphatase 67 Total Protein 5.9 L Albumin 3.4 L 04/21/17 11:30 Catheterized Urine Urine Culture - Final NO GROWTH 2 DAYS 04/23/17 04:40 NT-Pro-B Natriuret Pep 201 Impressions: KUB X-Ray 04/21/17 10:53 IMPRESSION: Appropriate nasogastric tube. Chest X-Ray 04/23/17 06:00 IMPRESSION: 1. Improved aeration of the right lung base. Interval removal of endotracheal tube and NG tube. Plan Time Spent: Greater than 30 Minutes
[2017-04-23 17:33] VITALS: BP 143/86
[2017-04-23] MEDS ORDERED: FAMOTIDINE 20 MG TABLET PO SCH (22:00)
[2017-04-24] MEDS ORDERED: PREDNISONE 20 MG TABLET PO SCH (10:00)
--- NOTE | 2017-04-26 13:33 | PDOC PROGRESS REPORT ---
Subjective Progress Note for:: 04/23/17 Subjective:: ET tube in place intubated and awake Reason For Visit: ANGIOEDEMA SECONDARY TO MEDICATION Physical Exam Vital Signs: Temp Pulse Resp BP Pulse Ox 98.7 F 107 H 21 H 168/98 H 99 04/23/17 08:00 04/23/17 08:00 04/23/17 08:00 04/23/17 08:00 04/23/17 08:00 Intake & Output 04/22/17 04/23/17 04/24/17 06:59 06:59 06:59 Intake Total 1169 1358 414 Output Total 2770 5180 650 Balance -1601 -3822 -236 Weight 136.9 kg 135.4 kg General appearance: PRESENT: no acute distress, cooperative, disheveled, morbidly obese Head exam: PRESENT: atraumatic, normocephalic Eye exam: PRESENT: conjunctiva pale, EOMI. ABSENT: conjunctival injection, conjunctiva pink, nystagmus, periorbital swelling, scleral icterus Mouth exam: PRESENT: dry mucosa, neck supple, tongue midline. ABSENT: moist Teeth exam: PRESENT: poor dentation Neck exam: ABSENT: carotid bruit, JVD, lymphadenopathy, thyromegaly, tracheal deviation, tracheostomy Respiratory exam: PRESENT: decreased breath sounds, prolonged expiratory phas, rhonchi, symmetrical. ABSENT: accessory muscle use, chest wall tenderness, clear to auscultation angelnia, crackles, rales, retraction, stridor, tachypnea, unlabored Cardiovascular exam: PRESENT: RRR, +S1, +S2 Pulses: PRESENT: normal radial pulses GI/Abdominal exam: PRESENT: diminished bowel sounds, soft Gentrourinary exam: PRESENT: indwelling catheter Extremities exam: ABSENT: joint swelling Musculoskeletal exam: PRESENT: ambulatory. ABSENT: deformity, dislocation Neurological exam: PRESENT: alert, awake. ABSENT: altered Psychiatric exam: PRESENT: normal mood Skin exam: PRESENT: dry, warm Results Laboratory Results: 04/23/17 04:40 04/23/17 04:40 04/23/17 04/23/17 04/23/17 03:59 04:40 04:40 WBC 15.1 H RBC 4.30 L Hgb 12.5 L Hct 38.3 MCV 89 MCH 29.1 MCHC 32.6 RDW 14.8 H Plt Count 133 L Seg Neutrophils % 87.6 H Lymphocytes % 5.4 L Monocytes % 6.9 Eosinophils % 0.0 Basophils % 0.1 Absolute Neutrophils 13.2 H Absolute Lymphocytes 0.8 Absolute Monocytes 1.0 Absolute Eosinophils 0.0 Absolute Basophils 0.0 Carbonic Acid 1.19 HCO3/H2CO3 Ratio 22:1 ABG pH 7.46 H ABG pCO2 39.5 ABG pO2 80.6 ABG HCO3 27.3 H ABG O2 Saturation 96.4 ABG Base Excess 3.2 FiO2 2L Sodium 141.1 Potassium 4.1 Chloride 105 Carbon Dioxide 29 Anion Gap 7 BUN 19 Creatinine 0.68 Est GFR ( Amer) > 60 Est GFR (Non-Af Amer) > 60 Glucose 263 H Calcium 8.3 L Phosphorus 3.3 Magnesium 2.1 Total Bilirubin 0.3 AST 23 ALT 24 Alkaline Phosphatase 67 Total Protein 5.9 L Albumin 3.4 L 04/23/17 04:40 NT-Pro-B Natriuret Pep 201 Impressions: KUB X-Ray 04/21/17 10:53 IMPRESSION: Appropriate nasogastric tube. Chest X-Ray 04/23/17 06:00 IMPRESSION: 1. Improved aeration of the right lung base. Interval removal of endotracheal tube and NG tube. Assessment & Plan - Diagnosis (1) Angioedema Qualifiers: Encounter type: subsequent encounter Qualified Code(s): T78.3XXD - Angioneurotic edema, subsequent encounter Is this a current diagnosis for this admission?: Yes Plan: ressolved (2) Acute respiratory failure Qualifiers: Respiratory failure complication: hypoxia and hypercapnia Qualified Code(s) : J96.01 - Acute respiratory failure with hypoxia; J96.02 - Acute respiratory failure with hypercapnia; J96.02 - Acute respiratory failure with hypercapnia; J96.02 - Acute respiratory failure with hypercapnia Is this a current diagnosis for this admission?: No (3) Anaphylaxis Qualifiers: Encounter type: initial encounter Qualified Code(s): T78.2XXA - Anaphylactic shock, unspecified, initial encounter Is this a current diagnosis for this admission?: No (4) COPD (chronic obstructive pulmonary disease) Qualifiers: COPD type: unspecified COPD Qualified Code(s): J44.9 - Chronic obstructive pulmonary disease, unspecified Is this a current diagnosis for this admission?: Yes Plan: Continue current bronchodilator therapy (5) Obesity (BMI 30-39.9) Qualifiers: Obesity type: due to excess calories Is this a current diagnosis for this admission?: Yes Plan: Unchanged
== END 2017-04-23 17:46 | disposition home or self-care (01) | DRG 915 ==
LOC: ER 09:03 → EH 09:52 → ICU 10:29 → 5 04-23 15:20
PROVIDERS: ADMIT Emergency Medicine; ATTEND Emergency Medicine
PROC: 0BH17EZ Insertion of Endotracheal Airway into Trachea, Via Natural or Artificial Opening (ICD-10-PCS; 2017-04-21)
PROC: 5A1945Z Respiratory Ventilation, 24-96 Consecutive Hours (ICD-10-PCS; principal; 2017-04-21 10:00)
DX: T78.3XXA Angioneurotic edema, initial encounter (principal); I26.99 Other pulmonary embolism without acute cor pulmonale; J96.01 Acute respiratory failure with hypoxia; J96.02 Acute respiratory failure with hypercapnia; Z68.41 Body mass index [BMI] 40.0-44.9, adult; T78.2XXA Anaphylactic shock, unspecified, initial encounter; T50.905A Adverse effect of unspecified drugs, medicaments and biological substances, initial encounter; F14.10 Cocaine abuse, uncomplicated; I48.91 Unspecified atrial fibrillation; I11.0 Hypertensive heart disease with heart failure; I50.9 Heart failure, unspecified; E78.5 Hyperlipidemia, unspecified; Z78.1 Physical restraint status; J44.9 Chronic obstructive pulmonary disease, unspecified; E66.01 Morbid (severe) obesity due to excess calories; K21.9 Gastro-esophageal reflux disease without esophagitis; M19.90 Unspecified osteoarthritis, unspecified site; E11.9 Type 2 diabetes mellitus without complications; Z90.49 Acquired absence of other specified parts of digestive tract; Z86.73 Personal history of transient ischemic attack (TIA), and cerebral infarction without residual deficits; Z86.19 Personal history of other infectious and parasitic diseases; Z79.4 Long term (current) use of insulin; Z79.899 Other long term (current) drug therapy; Z91.013 Allergy to seafood; Z88.6 Allergy status to analgesic agent; Z88.8 Allergy status to other drugs, medicaments and biological substances; Z82.61 Family history of arthritis; Z82.49 Family history of ischemic heart disease and other diseases of the circulatory system; Z82.3 Family history of stroke; Z83.3 Family history of diabetes mellitus; Z80.9 Family history of malignant neoplasm, unspecified
CPT/HCPCS: 320; 36415; 71045; 731; 74018; 80048; 80053; 80307; 81001; 82803; 82962; 83735; 83880; 84100; 85025; 85610; 85730; 87086; 94002; 94003; 94799; 96374; 96375; 99285; J0171; J0330; J1100; J1200; J1815; J2704; J2920; J2930; J3490; J7030; J7120; S0028

== ENCOUNTER 2017-05-19 03:14 | Inpatient (IN) | payer OTHER ==
[2017-05-19] MEDS ORDERED: KETAMINE HCL INJ 500 MG/10 ML VIAL ONE (03:23)
[2017-05-19] MEDS ORDERED: PROPOFOL 100 ML IV ONE ×2 (03:38→06:18)
[2017-05-19] MEDS ORDERED: MIDAZOLAM 2 MG/2 ML INJ ONE (04:16)
--- NOTE | 2017-05-19 04:16 | ER Document Report ---
ED General - General Chief Complaint: Shortness Of Breath Stated Complaint: DIFFICULTY BREATHING Notes: 61-year-old male on Eliquis with obesity and prior intubations for angioedema versus anaphylaxis presents with throat tightening and change in voice onset 1 hour ago. I was immediately pulled to the room to see the patient when he arrived. TRAVEL OUTSIDE OF THE [place] IN LAST 30 DAYS: No - Related Data Allergies/Adverse Reactions: codeine [Codeine] Allergy (Severe, Verified 04/21/17 09:33) Facial swelling hydrocodone bitartrate [From Vicodin] Allergy (Severe, Verified 04/21/17 09:33) Anaphylaxis lisinopril Allergy (Severe, Verified 04/21/17 09:33) Anaphylaxis hydromorphone [From Dilaudid] Allergy (Verified 04/21/17 09:33) Difficulty breathing Iodine and Iodide Containing Produc Allergy (Verified 04/21/17 09:33) Anaphylaxis morphine Allergy (Verified 04/21/17 09:33) Itching oxycodone Allergy (Verified 04/21/17 09:33) Swelling of tongue shellfish derived Allergy (Verified 04/21/17 09:33) Anaphylaxis Past Medical History - General Cannot obtain history due to: Altered mental status - Social History Smoking Status: Unknown if Ever Smoked Frequency of alcohol use: None Drug Abuse: None Family History: Arthritis, CAD - Mother and brother, CVA, DM, Hyperlipidemia, Hypertension, Malignancy Patient has suicidal ideation: No Patient has homicidal ideation: No - Past Medical History Cardiac Medical History: Reports: Hx Atrial Fibrillation, Hx Congestive Heart Failure, Hx Hypercholesterolemia, Hx Hypertension, Hx Pulmonary Embolism Denies: Hx Coronary Artery Disease, Hx Heart Attack, Hx Peripheral Vascular Disease, Hx Heart Murmur Pulmonary Medical History: Reports: Hx Asthma, Hx COPD, Hx Pneumonia - 7 years ago, Hx Sleep Apnea - hx only, not a current problem, no CPAP, Hx Tuberculosis Denies: Hx Bronchitis, Hx Respiratory Failure Neurological Medical History: Reports: Hx Cerebrovascular Accident. Denies: Hx Migraine Endocrine Medical History: Reports: Hx Diabetes Mellitus Type 2. Denies: Hx Graves' Disease, Hx Hyperthyroidism, Hx Hypothyroidism Renal/ Medical History: Reports: Hx Kidney Stones - 1981. Denies: Hx Benign Prostatic Hyperplasia, Hx End Stage Renal Disease, Hx Peritoneal Dialysis Malignancy Medical History: Denies Hx Lung Cancer GI Medical History: Reports: Hx Gastroesophageal Reflux Disease, Hx Hepatitis - Hep C, Hx Pancreatitis - 1988, Hx Ulcer. Denies: Hx Cirrhosis, Hx Crohn's Disease, Hx Hiatal Hernia, Hx Irritable Bowel, Hx Liver Failure, Hx Ulcerative Colitis Musculoskeltal Medical History: Reports Hx Arthritis, Denies Hx Fibromyalgia, Denies Hx Multiple Sclerosis, Denies Hx Muscular Dystrophy, Reports Hx Musculoskeletal Deformity, Reports Hx Musculoskeletal Trauma Skin Medical History: Denies Hx Psoriasis Psychiatric Medical History: Denies: Hx Bipolar Disorder, Hx Dementia, Hx Depression, Hx Post Traumatic Stress Disorder, Hx Schizophrenia Traumatic Medical History: Reports: Hx Fractures, Hx Spine Fracture. Denies: Hx Traumatic Brain Injury Infectious Medical History: Reports: Hx Hepatitis - Hep C Past Surgical History: Reports: Hx Abdominal Surgery - Hernia repair, bowel resection, Hx Appendectomy, Hx Bowel Surgery - bowel resection 1988, Hx Herniorrhaphy, Hx Oral Surgery, Hx Orthopedic Surgery - Spinal fusion. Meniscus repair.. Denies: Hx Cholecystectomy, Hx Colostomy, Hx Coronary Artery Bypass Graft, Hx Gastric Bypass Surgery, Hx Pacemaker, Hx Tonsillectomy - Immunizations Immunizations up to date: Yes Hx Diphtheria, Pertussis, Tetanus Vaccination: Yes Hx Pneumococcal Vaccination: 04/12/13 Review of Systems - Review of Systems Notes: REVIEW OF SYSTEMS PHYSICAL EXAMINATION General: Respiratory distress obese Head: Atraumatic, normocephalic ENT: Tongue swelling, posterior pharyngeal and uvular edema, change in voice, poor mouth opening Eyes: Conjunctiva normal, pupils equal, lids normal Neck: No JVD, supple, no guarding CVS: Normal rate, regular rhythm, no murmurs Resp: Mild, equal and normal breath sounds bilaterally GI: Nondistended, soft, no tenderness to palpation, no rebound or guarding Ext: No deformities, no edema, normal range of motion in upper and lower ext Back: No CVA or midline TTP Skin: No rash, warm Lymphatic: No lymphadeopathy noted Neuro: Awake, alert. Face symmetric. GCS 15. -: Yes ROS unobtainable due to patient's medical condition Physical Exam - Vital signs Vitals: Resp BP 17 135/92 H 05/19/17 03:19 05/19/17 03:19 Course - Re-evaluation Re-evalutation: 05/19/17 04:19 Patient presents with upper airway swelling in the setting of multiple episodes of angioedema. Company factors include obesity, anticoagulation. Brought from room 18 to the trauma room. Provide supplemental oxygen with plan for controlled intubation. Page surgery. Patient's and patient were informed he would likely need to be intubated. Once in the trauma room, he was denied charge needed for 10 minutes on 100% oxygen. Ketamine was placed. Using a videoscope with bougie backup I took a look. Please see intubation note for further information, however after 2 attempts there was mild airway bleeding and although I could get it to pass the cords the patient was normoxic but there was a large air leak. 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 Patient was bagged and was able to be bagged with nasopharyngeal airway placement. Repeat doses of ketamine and rocuronium were given to stabilize. Surgical list arrived approximately 10 minutes after being called. At the bedside we discussed the benefits of bedside trach, percutaneous versus OR. OR team was activated. Nursing supervisor conditioning yard venous was aware. Patient required additional doses of propofol, see sedation note for further information. Patient was maintained in procedural sedation with bagging for approximately 40 minutes while the OR team was assembled. His saturation never dropped below 95. His was consented and written and verbal form for blood transfusion and tracheostomy by the surgeon. I personally escorted the patient to the operating room along with QUILTING MACHINE OPERATOR and or nursing team. He was given several doses of propofol for sedation while being bagged. He was handed off to the operating team at 4:26 AM. 05/19/17 04:30 - Vital Signs Vital signs: Temp Pulse Resp BP Pulse Ox 104 H 11 L 166/97 H 96 05/19/17 03:20 05/19/17 04:21 05/19/17 04:21 05/19/17 04:21 Procedures - Conscious Sedation Conscious sedation Time started: 03:50 Time completed: 04:26 Consent obtained: No - Emergent consent obtained, verbally consented Indication: Ongoing sedation during bag valve mask ventilation Last meal: Bone Pt with a severe systemic disease.: P3. - ASA Classification. Airway Evaluation: Abnormal 3-3-2 rule, Copious secretions, Large tongue, Obese , Poss. upper airway obst. Mallampati Classification: Class 3 Used during procedure: Suction available, IV access obtained, Pulse ox on pt., monitoring coordinator on pt., Other - Facemask and nasal cannula oxygen maximal Medications administered: Other - Propofol total 100 mg in 3 separate pushes of 3, 3, 4 mg I personally performed/intraservice time: Sedation, 31-45 min Complications: No - Intubation Orotracheal Airway evaluation: Abnormal 3-3-2 rule, Copious secretions, Large tongue, Neck immobility, Obese, Poss. upper airway obst. Mallampati Classification: Class 3 Medications: Ketamine, Other - Rocuronium Intubation method: Orotracheal Blade type: Dylan Blade size: 4 Equipment used: Glidescope, Bougie ETT size: 7.5 Breath Sounds after Intubation: Equal End tidal CO2 confirmed: Yes Intubation Complications: Oral-unsuccessful attempt, O2 saturation decreased - Attempt #1: 2 past records. Good chest rise and CO2 however there was an air leak. When we visualized with direct laryngoscopy the cuff was at the cords. Bougie was passed through the tube into the trachea. This passed about 2 cm distal to the glottic aperture and stopped. Tube could not be passed. Bougie removed. Stylet reinserted through the tube. Tube could not be passed on attempt #2. Laryngoscope and a [place] withdrawn and [id number] resumed Critical Care Note - Critical Care Note Comments: The above patient is critically ill. Not including procedures, but including direct re-evaluations, speaking with patient and/or consultants, interpreting results, and documenting, I spent the total amount of minute listed listed above on critical care time Discharge - Discharge Clinical Impression: Acute airway obstruction Angioedema Qualifiers: Encounter type: initial encounter Qualified Code(s): T78.3XXA - Angioneurotic edema, initial encounter Condition: Critical Disposition: ADMITTED INPATIENT Admitting Provider: Hospitalist Unit Admitted: OR
[2017-05-19] MEDS ORDERED: PROPOFOL INJ 200 MG/20 ML VIAL IV ONE ×2 (04:17→04:58)
[2017-05-19] MEDS ORDERED: KETAMINE HCL INJ 500 MG/10 ML VIAL IV ONE (04:59)
[2017-05-19] MEDS ORDERED: ROCURONIUM BROMIDE INJ 50 MG/5 ML VIAL IV ONE ×3 (05:00→08:37)
--- NOTE | 2017-05-19 05:52 | PDOC CONSULTATION ---
Consultation Consult Date: 05/19/17 Attending physician:: Chelita Manuel Consult reason:: needs surgical airway History of Present Illness Admission Date/PCP: 05/19/17 04:18 History of Present Illness: SHANAE TSANG JR is a 61 year old male with a history of recurrent angioedema who was brought to the ER by his with complaints of swelling of the airway. He has been seen multiple times here for the same complaints, the most recent time being 04/23/2017 - about 26 days ago. He has had successful intubations all previous times but this time intubation was unsuccessful. Past Medical History Cardiac Medical History: Reports: Atrial Fibrillation, Congestive Heart Failure , Hyperlipidema, Hypertension, Pulmonary Embolism Denies: Coronary Artery Disease, Myocardial Infarction, Peripheral Vascular Disease, Heart Murmur Pulmonary Medical History: Reports: Asthma, Chronic Obstructive Pulmonary Disease (COPD), Pneumonia - 7 years ago, Sleep Apnea - hx only, not a current problem, no CPAP, Tuberculosis Denies: Bronchitis, Respiratory Failure Neurological Medical History: Denies: Migraine Endocrine Medical History: Reports: Diabetes Mellitus Type 2 Denies: Hyperthyroidism, Hypothyroidism Renal/ Medical History: Denies: End Stage Renal Disease Malignancy Medical History: Denies: Lung Cancer GI Medical History: Reports: Gastroesophageal Reflux Disease, Hepatitis - Hep C Denies: Cirrhosis, Crohn's Disease, Hiatal Hernia, Ulcerative Colitis Musculoskeltal Medical History: Reports: Arthritis Denies: Fibromyalgia Skin Medical History: Denies: Psoriasis Psychiatric Medical History: Denies: Bipolar Disorder, Dementia, Depression, Post Traumatic Stress Disorder Traumatic Medical History: Denies: Traumatic Brain Injury Hematology: Denies: Sickle Cell Disease, Bleeding Tendencies Past Surgical History Past Surgical History: Reports: Appendectomy, Herniorrhaphy, Orthopedic Surgery - Spinal fusion. Meniscus repair. Denies: Cholecystectomy, Colostomy, Coronary Artery Bypass Graft, Gastric Bypass Surgery, Pacemaker, Tonsillectomy Social History Smoking Status: Unknown if Ever Smoked Frequency of Alcohol Use: None Hx Recreational Drug Use: No Drugs: Cocaine - Patient admitted to cocaine use when confronted Hx Prescription Drug Abuse: No - Advance Directive Resuscitation Status: Full Code Family History Family History: Arthritis, CAD - Mother and brother, CVA, DM, Hyperlipidemia, Hypertension, Malignancy Parental Family History Reviewed: No Children Family History Reviewed: Unknown Sibling(s) Family History Reviewed.: Unknown Medication/Allergy Home Medications: Albuterol Sulfate [Proair HFA Inhalation Aerosol 8.5 gm MDI] 2 puff IH Q6HP PRN 04/22/17 Amitriptyline HCl [Elavil 25 mg Tablet] 75 mg PO QHS 04/22/17 Amlodipine Besylate [Norvasc 10 mg Tablet] 10 mg PO DAILY 04/22/17 Apixaban [Eliquis 5 mg Tablet] 5 mg PO Q12 04/22/17 Ascorbic Acid [Vitamin C 500 mg Tablet] 500 mg PO DAILY 04/22/17 Budesonide/Formoterol Fumarate [Symbicort HFA 160-4.5 mcg Inhaler 6 gm] 2 puff IH Q12 04/22/17 Dextrose [Glucose] 16 gm PO ASDIR PRN 04/22/17 Epinephrine [Epipen 2-Norbert] 0.3 mg IM ASDIR PRN 04/22/17 Ferrous Sulfate [Feosol 325 mg Tablet] 325 mg PO DAILY 04/22/17 Fluticasone Propionate [Flonase Nasal Hardy 50 Mcg/Hardy 16 gm] 1 spray NAREB DAILY 04/22/17 Furosemide [Lasix 20 mg Tablet] 20 mg PO QAM 04/22/17 Gabapentin [Neurontin 100 mg Capsule] 100 mg PO Q8 04/22/17 Hydrochlorothiazide [Hydrodiuril 25 mg Tablet] 25 mg PO QAM 04/22/17 Insulin Aspart [Novolog Flexpen] 18 unit SUBCUT ACBRKFST 04/22/17 Insulin Aspart [Novolog Flexpen] 25 unit SUBCUT BIDACLS 04/22/17 Insulin Glargine,Hum.rec.anlog [Lantus] 60 unit SQ QHS 04/22/17 Isosorbide Mononitrate [Imdur 30 mg Tablet.er] 30 mg PO QAM 04/22/17 Metformin HCl [Glucophage 500 mg Tablet] 1,000 mg PO BIDACBS 04/22/17 Metoprolol Tartrate [Lopressor 25 mg Tablet] 25 mg PO Q12 04/22/17 Omeprazole 40 mg PO QAM 04/22/17 Pravastatin Sodium [Pravachol] 20 mg PO QHS 04/22/17 Ranitidine HCl [Zantac 150 mg Tablet] 150 mg PO QHS 04/22/17 Sildenafil Citrate [Viagra] 100 mg PO ASDIR PRN 04/22/17 Terazosin HCl [Hytrin] 4 mg PO QHS 04/22/17 Tiotropium [place] [Spiriva Handihaler 18 mcg/dose (30 Dose)] 1 cap IH DAILY 02/27 Tramadol HCl [Ultram 50 mg Tablet] 50 mg PO Q6HP PRN 04/22/17 Apixaban [Eliquis 5 mg Tablet] 5 mg PO BID tablet 04/23/17 Budesonide/Formoterol Fumarate [Symbicort HFA 160-4.5 mcg Inhaler 6 gm] 2 puff IH Q12 inhaler 04/23/17 Diphenhydramine HCl [Benadryl 25 mg Capsule] 25 mg PO Q8HP PRN capsule Fluticasone Propionate [Flonase Nasal Hardy 50 Mcg/Hardy 16 gm] 1 spray NAREB QHS #1 spray.pump 04/23/17 Methylprednisolone [Medrol Dosepack (4 mg/Tab) 21 Tab/Dosepak] 4 mg PO ASDIR PRN #21 tab.ds.pk 04/23/17 Allergies/Adverse Reactions: codeine [Codeine] Allergy (Severe, Verified 04/21/17 09:33) Facial swelling hydrocodone bitartrate [From Vicodin] Allergy (Severe, Verified 04/21/17 09:33) Anaphylaxis lisinopril Allergy (Severe, Verified 04/21/17 09:33) Anaphylaxis hydromorphone [From Dilaudid] Allergy (Verified 04/21/17 09:33) Difficulty breathing Iodine and Iodide Containing Produc Allergy (Verified 04/21/17 09:33) Anaphylaxis morphine Allergy (Verified 04/21/17 09:33) Itching oxycodone Allergy (Verified 04/21/17 09:33) Swelling of tongue shellfish derived Allergy (Verified 04/21/17 09:33) Anaphylaxis Review of Systems ROS unobtainable: Due to mental status - patient sedated and being ventilated with a [id number]-eprqg., Other Physical Exam Vital Signs: Temp Pulse Resp BP Pulse Ox 104 H 11 L 166/97 H 96 05/19/17 03:20 05/19/17 04:21 05/19/17 04:21 05/19/17 04:21 Intake & Output 05/17/17 05/18/17 05/19/17 06:59 06:59 06:59 Intake Total 0 Balance 0 General appearance: PRESENT: morbidly obese Head exam: PRESENT: atraumatic, normocephalic Eye exam: PRESENT: conjunctiva pink Ear exam: PRESENT: normal external ear exam Neck exam: PRESENT: other - thick neck. ABSENT: carotid bruit, JVD, lymphadenopathy, thyromegaly Respiratory exam: PRESENT: clear to auscultation angelina, other - being ventilated with a [id number]-snjk-pestj Cardiovascular exam: PRESENT: +S1, +S2 GI/Abdominal exam: PRESENT: distended Neurological exam: PRESENT: altered, other - sedated Assessment & Plan - Diagnosis (1) Acute airway obstruction Is this a current diagnosis for this admission?: Yes (2) Angioedema Qualifiers: Encounter type: initial encounter Qualified Code(s): T78.3XXA - Angioneurotic edema, initial encounter Is this a current diagnosis for this admission?: Yes (3) Acute respiratory failure Qualifiers: Respiratory failure complication: hypoxia and hypercapnia Qualified Code(s) : J96.01 - Acute respiratory failure with hypoxia; J96.02 - Acute respiratory failure with hypercapnia; J96.02 - Acute respiratory failure with hypercapnia; J96.02 - Acute respiratory failure with hypercapnia Is this a current diagnosis for this admission?: Yes - Time Time Spent: Greater than 70 Minutes Total Critical Time (Minutes): 120 - Plan Summary Plan Summary: The anesthetists could not intubate the patient in the OR and so a tracheostomy was placed. I spoke with the prior to the procedure and obtained an informed consent from her - the main concern is that of bleeding since he takes Apixaban (Eliquis )
[2017-05-19] MEDS ORDERED: DEXTROSE 40% GEL 15 GM TUBE PO PRN ×4 (06:02→06:11)
[2017-05-19] MEDS ORDERED: GLUCAGON,HUMAN RECOMB 1 MG INJ SUBCUT PRN (06:02)
[2017-05-19] MEDS ORDERED: DEXTROSE 50%-WATER 25 GM/50 ML DISP.SYRIN IV PRN ×4 (06:02→06:11)
[2017-05-19] MEDS ORDERED: PROPOFOL 100 ML IV PRN (06:07)
[2017-05-19] MEDS ORDERED: GLUCAGON,HUMAN RECOMB 1 MG INJ IM PRN (06:11)
--- NOTE | 2017-05-19 06:20 | Operative Report ---
Operative Report DATE OF SURGERY: 05/19/17 PREOPERATIVE DIAGNOSIS: Angioedema. Acute Airway Obstruction. Acute Respiratory failure. Difficult intubation POSTOPERATIVE DIAGNOSIS: Angioedema. Acute Airway Obstruction. Acute Respiratory failure. Difficult intubation OPERATION: Tracheostomy placement SURGEON: Chelita Manuel ANESTHESIA: Other - IV General anesthesia with adj-nmsc-zoepa ventilation TISSUE REMOVED OR ALTERED: None COMPLICATIONS: none ESTIMATED BLOOD LOSS: 20ml INTRAOPERATIVE FINDINGS: thick neck with deeply placed trachea; thyroid isthmus lying low. PROCEDURE: The patient was brought to the operating room and placed on the operating table. Following failed endotracheal intubation, cht-hcxh-ittoh ventilation with intravenous general anesthesia was continued. He was positioned supine with shoulder rolls placed and the neck slightly hyperextended. The neck was prepped with chloraprep and sterile drapes laid to expose the anterior neck. A timeout was done. Under sterile aseptic conditions, the landmarks including the thyroid notch, cricoid cartilage and suprasternal notch were marked out with a marking pen. A 2cm transverse skin incision was made one fingerbreath above the sternal notch and developed using a combination of careful blunt dissection with a hemostat and Bovie dissection to the level of the strap muscles. The incision had to be enlarged to about a 4cm length for adequate exposure. The strap muscles were retracted to expose the thyroid isthmus which had to be divided to expose the tracheal rings. The cricoid hook was used to elevate the trachea anteriorly for better access and control. The tracheal rings were cleaned of overlying adventitial tissue and a Damaris flap created with the Bovie which was used only to duy the dimensions of the flap externally on the tracheal surface and the #11 blade used to cut into the trachea to create the flap. The flap was tagged with a 3-0 silk stitch and retracted anteriorly. A cuffed, nonfenestrated, shiley 6.0 tracheostomy tube with proximal extralength ( [id number])was then inserted into the trachea, the balloon inflated and the tube connected to the anesthetic machine with appropriate end-tidal carbondioxide waveform noted on the capnograph. The skin incision was closed snuggly around the tracheostomy tube and the tracheostomy tube anchored to the skin with 3-0 silk stitches placing a stitch at each of the four corners of the flange. Strict hemostasis was maintained throughout the procedure given the fact that this patient is on Eliquis. The wound was dressed with a drain sponge beneath the tracheostomy flange and the tracheostomy collar applied to further hold the traceostomy in place. The patient tolerated the procedure well and was taken to the ICU in stable condition.
[2017-05-19 06:34] LABS: ABSOLUTE EOSINOPHILS # (AUTO) 0.1 10^3/uL (0.0-0.6); ABSOLUTE LYMPHOCYTES (AUTO) 1.2 10^3/uL (0.5-4.7); ABSOLUTE MONOCYTES (AUTO) 0.7 10^3/uL (0.1-1.4); ABSOLUTE NEUT (AUTO) 9.5 10^3/uL (1.7-8.2); BASOPHILS % (AUTO) 0.4 % (0-2); EOSINOPHILS % (AUTO) 0.4 % (0-6); HEMATOCRIT 36.8 % (37.9-51.0); HEMOGLOBIN 11.8 g/dL (13.5-17.0); LYMPHOCYTES % (AUTO) 10.3 % (13-45); MEAN CORPUSCULAR HEMOGLOBIN 29.1 pg (27.0-33.4); MEAN CORPUSCULAR HGB CONC 32.2 g/dL (32.0-36.0); MEAN CORPUSCULAR VOLUME 91 fl (80-97); MONOCYTES % (AUTO) 6.4 % (3-13); PLATELET COUNT 138 10^3/uL (150-450); RED BLOOD COUNT 4.06 10^6/uL (4.35-5.55); RED CELL DISTRIBUTION WIDTH 14.7 % (11.5-14.0); SEGMENTED NEUTROPHILS % (AUTO) 82.5 % (42-78); TOTAL CELLS COUNTED % (AUTO) 100 %; WHITE BLOOD COUNT 11.5 10^3/uL (4.0-10.5)
[2017-05-19 06:35] LABS: ARTERIAL BLOOD BASE EXCESS 1.2 mmol/L; ARTERIAL BLOOD H2CO3 2.89 mmol/L (1.05-1.35); ARTERIAL BLOOD HCO3 32.6 mmol/L (20-26); ARTERIAL BLOOD O2 SATURATION 62.9 % (94-98); ARTERIAL BLOOD PO2 43.4 mmHg (80-100); ARTERIAL BLOOD TOTAL CO2 35.5 mmol/L (23-27)
[2017-05-19 06:44] LABS: ARTERIAL BLOOD FIO2 60%
[2017-05-19 06:45] LABS: ARTERIAL BLOOD PCO2 96.1 mmHg (35-45); ARTERIAL BLOOD PH 7.15 (7.35-7.45)
[2017-05-19 06:49] LABS: ALANINE AMINOTRANSFERASE 26 U/L (21-72); ALBUMIN 3.2 g/dL (3.5-5.0); ALKALINE PHOSPHATASE 65 U/L (38-126); ASPARTATE AMINO TRANSFERASE 23 U/L (17-59); BILIRUBIN,DIRECT 0.1 mg/dL (0.0-0.4); BILIRUBIN,TOTAL 0.1 mg/dL (0.2-1.3); BLOOD UREA NITROGEN 11 mg/dL (7-20); CALCIUM 7.7 mg/dL (8.4-10.2); CARBON DIOXIDE 32 mmol/L (22-30); CHLORIDE 101 mmol/L (98-107); GLUCOSE 255 mg/dL (75-110); POTASSIUM 5.9 mmol/L (3.6-5.0); SODIUM 136.7 mmol/L (137-145); TOTAL PROTEIN 5.8 g/dL (6.3-8.2)
[2017-05-19 06:59] LABS: ANION GAP 4 (5-19)
--- NOTE | 2017-05-19 07:52 | PDOC H&P ---
History of Present Illness Admission Date/PCP: 05/19/17 04:18 Patient complains of: Throat tightness History of Present Illness: SHANAE TSANG JR is a 61 year old male with a history of recurrent angioedema who was brought to the ER by his with complaints of swelling of the airway. Patient has had recurrent hospitalizations for angioedema resulting in intubation. This time intubation was unsuccessful. Surgery was called for emergent tracheostomy. Patient is currently in the ICU that is post tracheostomy. Patient is ventilated and sedated. Past Medical History Cardiac Medical History: Reports: Atrial Fibrillation, Congestive Heart Failure , Hyperlipidema, Hypertension, Pulmonary Embolism Denies: Coronary Artery Disease, Myocardial Infarction, Peripheral Vascular Disease, Heart Murmur Pulmonary Medical History: Reports: Asthma, Chronic Obstructive Pulmonary Disease (COPD), Pneumonia - 7 years ago, Sleep Apnea - hx only, not a current problem, no CPAP, Tuberculosis Denies: Bronchitis, Respiratory Failure Neurological Medical History: Denies: Migraine Endocrine Medical History: Reports: Diabetes Mellitus Type 2 Denies: Hyperthyroidism, Hypothyroidism Renal/ Medical History: Denies: End Stage Renal Disease Malignancy Medical History: Denies: Lung Cancer GI Medical History: Reports: Gastroesophageal Reflux Disease, Hepatitis - Hep C Denies: Cirrhosis, Crohn's Disease, Hiatal Hernia, Ulcerative Colitis Musculoskeltal Medical History: Reports: Arthritis Denies: Fibromyalgia Skin Medical History: Denies: Psoriasis Psychiatric Medical History: Denies: Bipolar Disorder, Dementia, Depression, Post Traumatic Stress Disorder Traumatic Medical History: Denies: Traumatic Brain Injury Hematology: Denies: Sickle Cell Disease, Bleeding Tendencies Past Surgical History Past Surgical History: Reports: Appendectomy, Herniorrhaphy, Orthopedic Surgery - Spinal fusion. Meniscus repair., Other - Tracheostomy on 05/19/2017 Denies: Cholecystectomy, Colostomy, Coronary Artery Bypass Graft, Gastric Bypass Surgery, Pacemaker, Tonsillectomy Social History Smoking Status: Unknown if Ever Smoked Frequency of Alcohol Use: None Hx Recreational Drug Use: No Drugs: Cocaine - Patient admitted to cocaine use when confronted Hx Prescription Drug Abuse: No - Advance Directive Resuscitation Status: Full Code Family History Family History: Arthritis, CAD - Mother and brother, CVA, DM, Hyperlipidemia, Hypertension, Malignancy Parental Family History Reviewed: No Children Family History Reviewed: No Sibling(s) Family History Reviewed.: No Medication/Allergy Allergies/Adverse Reactions: codeine [Codeine] Allergy (Severe, Verified 04/21/17 09:33) Facial swelling hydrocodone bitartrate [From Vicodin] Allergy (Severe, Verified 04/21/17 09:33) Anaphylaxis lisinopril Allergy (Severe, Verified 04/21/17 09:33) Anaphylaxis hydromorphone [From Dilaudid] Allergy (Verified 04/21/17 09:33) Difficulty breathing Iodine and Iodide Containing Produc Allergy (Verified 04/21/17 09:33) Anaphylaxis morphine Allergy (Verified 04/21/17 09:33) Itching oxycodone Allergy (Verified 04/21/17 09:33) Swelling of tongue shellfish derived Allergy (Verified 04/21/17 09:33) Anaphylaxis Review of Systems ROS unobtainable: Due to endotracheal tube, Due to mental status Physical Exam Vital Signs: Temp Pulse Resp BP Pulse Ox 96.6 F L 100 20 87/58 L 93 05/19/17 06:27 05/19/17 06:27 05/19/17 06:27 05/19/17 06:27 05/19/17 06:27 Intake & Output 05/18/17 05/19/17 05/20/17 06:59 06:59 06:59 Intake Total 0 Balance 0 General appearance: PRESENT: no acute distress, well-developed, well-nourished Head exam: PRESENT: normocephalic Eye exam: PRESENT: EOMI. ABSENT: scleral icterus Ear exam: PRESENT: normal external ear exam Mouth exam: PRESENT: moist, other - Large tongue protruding out of patient's mouth patient with trach in place Neck exam: ABSENT: carotid bruit, JVD, lymphadenopathy, thyromegaly Respiratory exam: PRESENT: clear to auscultation angelina. ABSENT: rales, rhonchi, wheezes Cardiovascular exam: PRESENT: RRR. ABSENT: diastolic murmur, rubs, systolic murmur Pulses: PRESENT: normal dorsalis pedis pul Vascular exam: PRESENT: normal capillary refill GI/Abdominal exam: PRESENT: normal bowel sounds, soft. ABSENT: distended, guarding, mass, organolmegaly, rebound, tenderness Rectal exam: PRESENT: deferred Extremities exam: PRESENT: full ROM. ABSENT: calf tenderness, clubbing, pedal edema Neurological exam: PRESENT: other - Sedated. ABSENT: motor sensory deficit Psychiatric exam: ABSENT: homicidal ideation, suicidal ideation Skin exam: PRESENT: dry, intact, warm. ABSENT: cyanosis, rash Results Laboratory Results: 05/19/17 06:25 05/19/17 06:25 05/19/17 05/19/17 05/19/17 06:25 06:25 06:25 WBC 11.5 H RBC 4.06 L Hgb 11.8 L Hct 36.8 L MCV 91 MCH 29.1 MCHC 32.2 RDW 14.7 H Plt Count 138 L Seg Neutrophils % 82.5 H Lymphocytes % 10.3 L Monocytes % 6.4 Eosinophils % 0.4 Basophils % 0.4 Absolute Neutrophils 9.5 H Absolute Lymphocytes 1.2 Absolute Monocytes 0.7 Absolute Eosinophils 0.1 Absolute Basophils 0.0 Carbonic Acid 2.89 H HCO3/H2CO3 Ratio 11:1 ABG pH 7.15 L* ABG pCO2 96.1 H* ABG pO2 43.4 L ABG HCO3 32.6 H ABG O2 Saturation 62.9 L ABG Base Excess 1.2 FiO2 60% Sodium 136.7 L Potassium 5.9 H Chloride 101 Carbon Dioxide 32 H Anion Gap 4 L BUN 11 Creatinine 0.84 Est GFR ( Amer) > 60 Est GFR (Non-Af Amer) > 60 Glucose 255 H Calcium 7.7 L Magnesium 1.7 Total Bilirubin 0.1 L AST 23 ALT 26 Alkaline Phosphatase 65 Total Protein 5.8 L Albumin 3.2 L Assessment & Plan - Diagnosis (1) Acute respiratory failure Qualifiers: Respiratory failure complication: hypoxia and hypercapnia Qualified Code(s) : J96.01 - Acute respiratory failure with hypoxia; J96.02 - Acute respiratory failure with hypercapnia; J96.02 - Acute respiratory failure with hypercapnia; J96.02 - Acute respiratory failure with hypercapnia Is this a current diagnosis for this admission?: Yes Plan: Patient trached and intubated. Patient vent settings were adjusted. Initial blood gas shows hypercapnia with hypoxia. Respiratory acidosis. Will repeat ABG in 2 hours following vent adjustments. Will call so Curseen for vent management. (2) Acute airway obstruction Is this a current diagnosis for this admission?: Yes Plan: Patient with acute airway obstruction due to angioedema. Patient could not be intubated therefore patient brought to the OR for emergent tracheostomy. (3) Angioedema Qualifiers: Encounter type: initial encounter Qualified Code(s): T78.3XXA - Angioneurotic edema, initial encounter Is this a current diagnosis for this admission?: Yes Plan: Patient with recurrent angioedema. Patient could not be intubated at this time. Patient currently trached to secure his airway. (4) COPD (chronic obstructive pulmonary disease) Qualifiers: COPD type: unspecified COPD Qualified Code(s): J44.9 - Chronic obstructive pulmonary disease, unspecified Is this a current diagnosis for this admission?: Yes Plan: COPD without exacerbation. Will continue patient on bronchodilators. (5) Cocaine abuse Is this a current diagnosis for this admission?: Yes Plan: With no history of cocaine abuse. (6) Diabetes Qualifiers: Diabetes mellitus type: type 2 Diabetes mellitus complication status: with diabetic arthropathy Diabetes mellitus complication detail: with other arthropathy Diabetes mellitus director long term care insulin use: with skilled nursing use Qualified Code(s): E11.618 - Type 2 diabetes mellitus with other diabetic arthropathy; Z79.4 - emt intermediate (current) use of insulin Is this a current diagnosis for this admission?: Yes Plan: [place] with type 2 diabetes. Patient currently n.p.o. Will place patient on hypoglycemic protocol. Patient normally takes Lantus 60 units nightly and aspart 25 units twice daily before meals. Patient also takes metformin 1000 mg p.o. twice daily. (7) GRACY (obstructive sleep apnea) Is this a current diagnosis for this admission?: Yes Plan: Patient with obstructive sleep apnea not on CPAP. Patient currently trached and ventilated. (8) Atrial fibrillation Qualifiers: Atrial fibrillation type: chronic Qualified Code(s): I48.2 - Chronic atrial fibrillation Is this a current diagnosis for this admission?: Yes Plan: Patient with a history of atrial fibrillation supposedly on Eliquis and beta- renetta. When appropriate patient can be placed on therapeutic doses of Lovenox and beta-renetta. (9) Congestive heart failure Qualifiers: Congestive heart failure type: diastolic Congestive heart failure chronicity: chronic Qualified Code(s): I50.32 - Chronic diastolic (congestive ) heart failure Is this a current diagnosis for this admission?: Yes Plan: With chronic diastolic heart failure. Patient appears euvolemic at this time. Patient has echo was done in 2017 which showed grade 2 diastolic dysfunction. Patient home medications of Lasix 20 mg, Imdur 30 mg metoprolol 25 every 12 can be resumed when appropriate (10) Hypertension Qualifiers: Hypertension type: essential hypertension Qualified Code(s): I10 - Essential (primary) hypertension Is this a current diagnosis for this admission?: Yes Plan: Patient is actually hypotensive at this time. Hypertension may be secondary to the propofol. Patient propofol discontinued patient started on Versed instead. Continue normal saline at 100 cc an hour. - Time Time Spent: 30 to 50 Minutes - Inpatient Certification Medical Necessity: Significant Comorbidiites Make Outpatient Treatment Too Risky - Patient is currently in the ICU and ventilated., Need Close Monitoring Due to Risk of Patient Decompensation, Need For IV Fluids, Need For Continuous Telemetry Monitoring
[2017-05-19] MEDS ORDERED: MIDAZOLAM HCL 50 MG/100 ML RTUINJ IV ONE (07:54)
[2017-05-19] MEDS: MIDAZOLAM HCL 50 MG/100 ML RTUINJ IV PRN ×5 (08:20→23:40)
[2017-05-19] MEDS: IPRATROPIUM/ALBUTEROL 0.5-2.5 MG/3 ML AMPUL NEB SCH ×3 (08:46→20:12)
[2017-05-19 09:04] LABS: URINE AMPHETAMINES SCREEN NEGATIVE; URINE BARBITURATES SCREEN NEGATIVE; URINE MARIJUANA (THC) SCREEN NEGATIVE; URINE METHADONE SCREEN NEGATIVE; URINE PHENCYCLIDINE SCREEN NEGATIVE
[2017-05-19 09:12] LABS: URINE BENZODIAZEPINES SCREEN UNCONFIRMED POSITIVE; URINE COCAINE SCREEN UNCONFIRMED POSITIVE
--- NOTE | 2017-05-19 09:13 | EKG REPORT ---
SEVERITY:- ABNORMAL ECG - SINUS TACHYCARDIA PROBABLE LEFT ATRIAL ABNORMALITY PROBABLE POSTERIOR INFARCT NONSPECIFIC T ABNORMALITIES, INFERIOR LEADS : Confirmed by: Brad Piper 19-May-2017 09:12:54
[2017-05-19 09:20] LABS: ARTERIAL BLOOD BASE EXCESS -0.4 mmol/L; ARTERIAL BLOOD H2CO3 1.51 mmol/L (1.05-1.35); ARTERIAL BLOOD HCO3 25.9 mmol/L (20-26); ARTERIAL BLOOD O2 SATURATION 97.3 % (94-98); ARTERIAL BLOOD PH 7.33 (7.35-7.45); ARTERIAL BLOOD PO2 102.8 mmHg (80-100); ARTERIAL BLOOD TOTAL CO2 27.5 mmol/L (23-27)
[2017-05-19 09:22] LABS: ARTERIAL BLOOD FIO2 60%
[2017-05-19] MEDS ORDERED: PANTOPRAZOLE SODIUM 40 MG VIAL IV SCH (10:00)
[2017-05-19] MEDS: HEPARIN SOD (PORCINE) 5,000 UNIT/ML 1 ML SYRINGE SUBCUT SCH ×2 (14:49→20:44)
[2017-05-19] MEDS: NORMAL SALINE 1000 ML 1,000 ML IV PRN (18:10)
[2017-05-19] MEDS ORDERED: DIPHENHYDRAMINE HCL 50 MG/ML VIAL IV PRN (20:12)
[2017-05-19] MEDS ORDERED: RACEPINEPHRINE HCL 2.25% NEB 0.5 ML AMPUL NEB PRN (20:24)
[2017-05-19] MEDS: DIPHENHYDRAMINE HCL 50 MG/ML VIAL IV PRN (20:43)
--- NOTE | 2017-05-19 21:24 | Progress Note ---
Provider Note Provider Note: Patient was recently trached to secure his airway for recurrent airway obstruction. Hospitalist has been contacted in regards to starting patient on Solu-Medrol, Benadryl, Pepcid, patient was started on as needed Benadryl and Pepcid was ordered for GI prophylaxis. Patient's case was discussed with the ENT specialist at [facility] who stated there is no indication for Solu-Medrol or decadron at this time as the obstruction has been bypassed. He did state that if the patient was bronched and there was some noted edema further down in the airway that patient may benefit from a low-dose steroids.
[2017-05-19] MEDS: FAMOTIDINE INJ/PF 20 MG/2 ML SDV IV SCH (22:09)
[2017-05-20] MEDS ORDERED: LORAZEPAM 24 MG/240 ML BAG IV PRN (00:51)
[2017-05-20] MEDS ORDERED: FENTANYL CITRATE INJ/PF 100 MCG/2 ML AMPUL IV ONE (00:59)
[2017-05-20] MEDS ORDERED: LORAZEPAM INJ 2 MG/1 ML VIAL ONE (00:59)
[2017-05-20] MEDS: DIPHENHYDRAMINE HCL 50 MG/ML VIAL IV PRN (02:07)
[2017-05-20] MEDS: MIDAZOLAM HCL 50 MG/100 ML RTUINJ IV PRN ×7 (02:07→21:21)
[2017-05-20] MEDS: IPRATROPIUM/ALBUTEROL 0.5-2.5 MG/3 ML AMPUL NEB SCH ×4 (02:09→19:29)
[2017-05-20] MEDS: NORMAL SALINE 1000 ML 1,000 ML IV PRN ×2 (04:20→14:17)
[2017-05-20 04:25] LABS: ABSOLUTE BASOPHILS # (AUTO) 0.1 10^3/uL (0.0-0.2); ABSOLUTE MONOCYTES (AUTO) 1.2 10^3/uL (0.1-1.4); ABSOLUTE NEUT (AUTO) 7.3 10^3/uL (1.7-8.2); BASOPHILS % (AUTO) 0.6 % (0-2); EOSINOPHILS % (AUTO) 0.5 % (0-6); HEMATOCRIT 36.7 % (37.9-51.0); HEMOGLOBIN 12.1 g/dL (13.5-17.0); LYMPHOCYTES % (AUTO) 10.1 % (13-45); MEAN CORPUSCULAR HEMOGLOBIN 29.4 pg (27.0-33.4); MEAN CORPUSCULAR VOLUME 89 fl (80-97); MONOCYTES % (AUTO) 12.4 % (3-13); PLATELET COUNT 132 10^3/uL (150-450); RED BLOOD COUNT 4.11 10^6/uL (4.35-5.55); RED CELL DISTRIBUTION WIDTH 14.2 % (11.5-14.0); SEGMENTED NEUTROPHILS % (AUTO) 76.4 % (42-78); TOTAL CELLS COUNTED % (AUTO) 100 %; WHITE BLOOD COUNT 9.6 10^3/uL (4.0-10.5)
[2017-05-20 04:40] LABS: ALANINE AMINOTRANSFERASE 25 U/L (21-72); ALBUMIN 3.1 g/dL (3.5-5.0); ALKALINE PHOSPHATASE 55 U/L (38-126); ANION GAP 8 (5-19); ASPARTATE AMINO TRANSFERASE 16 U/L (17-59); BILIRUBIN,DIRECT 0.1 mg/dL (0.0-0.4); BILIRUBIN,TOTAL 0.4 mg/dL (0.2-1.3); BLOOD UREA NITROGEN 11 mg/dL (7-20); CALCIUM 7.6 mg/dL (8.4-10.2); CARBON DIOXIDE 26 mmol/L (22-30); CHLORIDE 103 mmol/L (98-107); GLUCOSE 154 mg/dL (75-110); SODIUM 136.6 mmol/L (137-145); TOTAL PROTEIN 5.3 g/dL (6.3-8.2)
[2017-05-20 04:54] LABS: POTASSIUM 4.2 mmol/L (3.6-5.0)
[2017-05-20] MEDS: HEPARIN SOD (PORCINE) 5,000 UNIT/ML 1 ML SYRINGE SUBCUT SCH ×3 (05:55→21:21)
[2017-05-20 06:09] LABS: ARTERIAL BLOOD BASE EXCESS 0.9 mmol/L; ARTERIAL BLOOD H2CO3 1.52 mmol/L (1.05-1.35); ARTERIAL BLOOD HCO3 27.2 mmol/L (20-26); ARTERIAL BLOOD O2 SATURATION 57.9 % (94-98); ARTERIAL BLOOD PCO2 50.6 mmHg (35-45); ARTERIAL BLOOD PH 7.35 (7.35-7.45); ARTERIAL BLOOD TOTAL CO2 28.7 mmol/L (23-27)
[2017-05-20 06:12] LABS: ARTERIAL BLOOD FIO2 50%
[2017-05-20 06:13] LABS: ARTERIAL BLOOD PO2 32.2 mmHg (80-100)
[2017-05-20] MEDS ORDERED: PHENOBARBITAL INJ 65 MG/ML VIAL IV ONE (06:29)
[2017-05-20] MEDS ORDERED: CLONIDINE 0.1 MG/24 HR PATCH.TDWK TD SCH ×2 (06:30→09:30)
[2017-05-20] MEDS ORDERED: LORAZEPAM INJ 2 MG/1 ML VIAL IV ONE (06:33)
[2017-05-20] MEDS: FENTANYL CITRATE INJ/PF 100 MCG/2 ML AMPUL IV PRN ×3 (06:40→21:28)
[2017-05-20] MEDS ORDERED: CLONIDINE 0.1 MG/24 HR PATCH.TDWK TD ONE (06:45)
[2017-05-20] MEDS ORDERED: PIPERACILLIN/TAZOBACTAM 3.375 GM VIAL IV PRN (06:50)
[2017-05-20 07:00] LABS: ARTERIAL BLOOD BASE EXCESS 0.6 mmol/L; ARTERIAL BLOOD H2CO3 1.21 mmol/L (1.05-1.35); ARTERIAL BLOOD HCO3 25.1 mmol/L (20-26); ARTERIAL BLOOD O2 SATURATION 95.9 % (94-98); ARTERIAL BLOOD PCO2 40.1 mmHg (35-45); ARTERIAL BLOOD PH 7.42 (7.35-7.45); ARTERIAL BLOOD PO2 79.1 mmHg (80-100); ARTERIAL BLOOD TOTAL CO2 26.4 mmol/L (23-27)
[2017-05-20] MEDS ORDERED: PIPERACILLIN SODIUM/TAZOBACTAM 3.375 GM in NORMAL SALINE 100 ML IV ONE (07:00)
[2017-05-20 07:01] LABS: ARTERIAL BLOOD FIO2 40%
--- NOTE | 2017-05-20 07:22 | RADIOLOGY REPORT (SQ) ---
EXAM DESCRIPTION: CHEST SINGLE VIEW CLINICAL HISTORY: Respiratory failure COMPARISON: 04/23/2017 FINDINGS: Single frontal view of the chest. Endotracheal tube with tip just below the clavicles. NG tube with tip below the diaphragm. Heart is not enlarged. Blunting of the left costophrenic angle may represent small left effusion.. Low lung volumes. Streaky bibasilar opacities. No pneumothorax. No acute osseous abnormalities. Upper abdominal soft tissues are unremarkable. IMPRESSION: 1. Tubes and lines in appropriate radiographic position. 2. Possible small left pleural effusion with streaky bibasilar opacities which may be related to atelectasis.
--- NOTE | 2017-05-20 09:30 | PDOC PROGRESS REPORT ---
Subjective Progress Note for:: 05/20/17 Subjective:: Nursing states that he has been waking up. Nursing states that she is concerned that pt is withdrawaling while on Versed drip. Nursing also reported that pt was heart rate was in the 150s overnight. Reason For Visit: ANGIOEDEMA, RESPIRATORY FAILURE Physical Exam Vital Signs: Temp Pulse Resp BP Pulse Ox 100.2 F 119 H 22 H 119/82 100 05/20/17 08:00 05/20/17 08:00 05/20/17 08:00 05/20/17 08:00 05/20/17 08:00 Intake & Output 05/19/17 05/20/17 05/21/17 06:59 06:59 06:59 Intake Total 0 4320 Output Total 2630 600 Balance 0 1690 -600 Weight 139.3 kg General appearance: PRESENT: morbidly obese, other - Sedated Head exam: PRESENT: atraumatic, normocephalic Eye exam: PRESENT: conjunctiva pink. ABSENT: scleral icterus Ear exam: PRESENT: normal external ear exam Mouth exam: PRESENT: moist, tongue midline Neck exam: PRESENT: tracheostomy. ABSENT: carotid bruit, JVD Respiratory exam: PRESENT: clear to auscultation angelina. ABSENT: rales, rhonchi, wheezes Cardiovascular exam: PRESENT: RRR. ABSENT: diastolic murmur, rubs, systolic murmur Pulses: PRESENT: normal dorsalis pedis pul Vascular exam: PRESENT: normal capillary refill GI/Abdominal exam: PRESENT: normal bowel sounds, soft. ABSENT: distended, guarding, mass, organolmegaly, rebound, tenderness Rectal exam: PRESENT: deferred Extremities exam: PRESENT: full ROM, +1 edema. ABSENT: calf tenderness, clubbing, pedal edema - Left upper extremity +1 pitting edema Neurological exam: PRESENT: other - Sedated Psychiatric exam: PRESENT: other Skin exam: PRESENT: dry, intact, warm. ABSENT: cyanosis, rash Results Laboratory Results: 05/20/17 04:06 05/20/17 04:06 05/19/17 05/20/17 05/20/17 09:00 04:06 04:06 WBC 9.6 RBC 4.11 L Hgb 12.1 L Hct 36.7 L MCV 89 MCH 29.4 MCHC 33.0 RDW 14.2 H Plt Count 132 L Seg Neutrophils % 76.4 Lymphocytes % 10.1 L Monocytes % 12.4 Eosinophils % 0.5 Basophils % 0.6 Absolute Neutrophils 7.3 Absolute Lymphocytes 1.0 Absolute Monocytes 1.2 Absolute Eosinophils 0.0 Absolute Basophils 0.1 Carbonic Acid 1.51 H HCO3/H2CO3 Ratio 17:1 ABG pH 7.33 L ABG pCO2 50.0 H ABG pO2 102.8 H ABG HCO3 25.9 ABG O2 Saturation 97.3 ABG Base Excess -0.4 FiO2 60% Sodium 136.6 L Potassium 4.2 D Chloride 103 Carbon Dioxide 26 Anion Gap 8 BUN 11 Creatinine 0.57 Est GFR ( Amer) > 60 Est GFR (Non-Af Amer) > 60 Glucose 154 H Calcium 7.6 L Magnesium 1.6 Total Bilirubin 0.4 AST 16 L ALT 25 Alkaline Phosphatase 55 Total Protein 5.3 L Albumin 3.1 L 05/20/17 05/20/17 05:50 06:32 WBC RBC Hgb Hct MCV MCH MCHC RDW Plt Count Seg Neutrophils % Lymphocytes % Monocytes % Eosinophils % Basophils % Absolute Neutrophils Absolute Lymphocytes Absolute Monocytes Absolute Eosinophils Absolute Basophils Carbonic Acid 1.52 H 1.21 HCO3/H2CO3 Ratio 17:1 20:1 ABG pH 7.35 7.42 ABG pCO2 50.6 H 40.1 ABG pO2 32.2 L* 79.1 L ABG HCO3 27.2 H 25.1 ABG O2 Saturation 57.9 L 95.9 ABG Base Excess 0.9 0.6 FiO2 50% 40% Sodium Potassium Chloride Carbon Dioxide Anion Gap BUN Creatinine Est GFR ( Amer) Est GFR (Non-Af Amer) Glucose Calcium Magnesium Total Bilirubin AST ALT Alkaline Phosphatase Total Protein Albumin Impressions: Chest X-Ray 05/20/17 06:00 IMPRESSION: 1. Tubes and lines in appropriate radiographic position. 2. Possible small left pleural effusion with streaky bibasilar opacities which may be related to atelectasis. Assessment & Plan - Diagnosis (1) Acute airway obstruction Is this a current diagnosis for this admission?: Yes Plan: Secondary to angioedema status post trach placement: Patient is doing well on vent and appreciate pulmonary's assistance of care. (2) Fever Is this a current diagnosis for this admission?: Yes Plan: Etiology unclear. Could be related to patient's trach placement: Cultures ordered. Endotracheal culture obtained. Will check CT abdomen and pelvis to evaluate for possible other sources of infection. Place patient on Zosyn. (3) Angioedema Qualifiers: Encounter type: initial encounter Qualified Code(s): T78.3XXA - Angioneurotic edema, initial encounter Is this a current diagnosis for this admission?: Yes Plan: Most likely secondary to cocaine abuse: Patient currently trached. Have on 2 occasions told patient to discontinue cocaine use. Patient on urine tox is positive for cocaine. [facility]NT was contacted in regards to nursing's request for steroids and antihistamines. ENT recommended no additional treatment required due to patient being trached. ENT reported that if patient has airway edema then steroids and antihistamines could be used. The current time patient is satting well on vent. (4) Congestive heart failure Qualifiers: Congestive heart failure type: diastolic Congestive heart failure chronicity: chronic Qualified Code(s): I50.32 - Chronic diastolic (congestive ) heart failure Is this a current diagnosis for this admission?: Yes (5) GRACY (obstructive sleep apnea) Is this a current diagnosis for this admission?: Yes Plan: Pt currently S/P Trach. (6) Cocaine abuse Is this a current diagnosis for this admission?: Yes Plan: Will continue encourage discontinuation of cocaine use. (7) Pulmonary embolism Qualifiers: Chronicity: unspecified Acute cor pulmonale presence: without acute cor pulmonale Is this a current diagnosis for this admission?: No Plan: History of PE: Patient has been on Eliquis which has been held due to recent trach. Will most likely restart Eliquis on 05/21/2017 (8) Tachycardia Is this a current diagnosis for this admission?: Yes Plan: In setting of fever: We will check EKG. Will repeat patient's 2D echo given the fact that last echo cardiology was not able to give EF. Patient's home dose of metoprolol was restarted. (9) Volume overload Is this a current diagnosis for this admission?: Yes Plan: We will give 40 of IV Lasix 1. Will reduce IV fluid rate. (10) Hypertension secondary to drug Is this a current diagnosis for this admission?: Yes Plan: Resolved. (11) DVT prophylaxis Is this a current diagnosis for this admission?: Yes Plan: Heparin. - Time Time Spent with patient: 25-34 minutes
[2017-05-20] MEDS: PIPERACILLIN SODIUM/TAZOBACTAM 3.375 GM in NORMAL SALINE 100 ML IV SCH ×3 (09:51→21:23)
[2017-05-20] MEDS: FLUTICASONE NASAL SPRAY 50 MCG/SPRY 120 SPRAY/16 GM NASL SCH (09:55)
[2017-05-20] MEDS: METOPROLOL TARTRATE 50 MG TABLET PO SCH ×2 (09:58→21:21)
[2017-05-20] MEDS: FAMOTIDINE INJ/PF 20 MG/2 ML SDV IV SCH ×2 (09:59→21:21)
[2017-05-20] MEDS: BUDESONIDE/FORMOTEROL 160-4.5 MCG 60 PUFF/6 GM MDI IH SCH ×2 (09:59→21:29)
--- NOTE | 2017-05-20 10:42 | PDOC PROGRESS REPORT ---
Subjective Progress Note for:: 05/20/17 Subjective:: Intubated and sedated. Reason For Visit: ANGIOEDEMA, RESPIRATORY FAILURE Physical Exam Vital Signs: Temp Pulse Resp BP Pulse Ox 100.2 F 119 H 22 H 119/82 100 05/20/17 08:00 05/20/17 08:00 05/20/17 08:00 05/20/17 08:00 05/20/17 08:00 Intake & Output 05/19/17 05/20/17 05/21/17 06:59 06:59 06:59 Intake Total 0 4320 Output Total 2630 600 Balance 0 1690 -600 Weight 139.3 kg General appearance: PRESENT: no acute distress Neck exam: PRESENT: tracheostomy - Tracheostomy in place. Minimal surrounding edema. No bleeding. Patient still with a significant oral and tongue edema. Respiratory exam: PRESENT: clear to auscultation angelina Cardiovascular exam: PRESENT: tachycardia Results Laboratory Results: 05/20/17 04:06 05/20/17 04:06 05/20/17 05/20/17 05/20/17 04:06 04:06 05:50 WBC 9.6 RBC 4.11 L Hgb 12.1 L Hct 36.7 L MCV 89 MCH 29.4 MCHC 33.0 RDW 14.2 H Plt Count 132 L Seg Neutrophils % 76.4 Lymphocytes % 10.1 L Monocytes % 12.4 Eosinophils % 0.5 Basophils % 0.6 Absolute Neutrophils 7.3 Absolute Lymphocytes 1.0 Absolute Monocytes 1.2 Absolute Eosinophils 0.0 Absolute Basophils 0.1 Carbonic Acid 1.52 H HCO3/H2CO3 Ratio 17:1 ABG pH 7.35 ABG pCO2 50.6 H ABG pO2 32.2 L* ABG HCO3 27.2 H ABG O2 Saturation 57.9 L ABG Base Excess 0.9 FiO2 50% Sodium 136.6 L Potassium 4.2 D Chloride 103 Carbon Dioxide 26 Anion Gap 8 BUN 11 Creatinine 0.57 Est GFR ( Amer) > 60 Est GFR (Non-Af Amer) > 60 Glucose 154 H Calcium 7.6 L Magnesium 1.6 Total Bilirubin 0.4 AST 16 L ALT 25 Alkaline Phosphatase 55 Total Protein 5.3 L Albumin 3.1 L 05/20/17 06:32 WBC RBC Hgb Hct MCV MCH MCHC RDW Plt Count Seg Neutrophils % Lymphocytes % Monocytes % Eosinophils % Basophils % Absolute Neutrophils Absolute Lymphocytes Absolute Monocytes Absolute Eosinophils Absolute Basophils Carbonic Acid 1.21 HCO3/H2CO3 Ratio 20:1 ABG pH 7.42 ABG pCO2 40.1 ABG pO2 79.1 L ABG HCO3 25.1 ABG O2 Saturation 95.9 ABG Base Excess 0.6 FiO2 40% Sodium Potassium Chloride Carbon Dioxide Anion Gap BUN Creatinine Est GFR ( Amer) Est GFR (Non-Af Amer) Glucose Calcium Magnesium Total Bilirubin AST ALT Alkaline Phosphatase Total Protein Albumin Impressions: Chest X-Ray 05/20/17 06:00 IMPRESSION: 1. Tubes and lines in appropriate radiographic position. 2. Possible small left pleural effusion with streaky bibasilar opacities which may be related to atelectasis. Assessment & Plan - Diagnosis (1) Acute airway obstruction Is this a current diagnosis for this admission?: Yes Plan: Status post emergency tracheostomy. Trach site looks good. Defer to medicine for his ventilatory management.
[2017-05-20] MEDS: ACETAMINOPHEN 650 MG SUPP.RECT PR PRN ×2 (11:20→23:23)
--- NOTE | 2017-05-20 11:36 | RADIOLOGY REPORT (SQ) ---
EXAM DESCRIPTION: CT CHEST WITHOUT COMPLETED DATE/TIME: 05/20/2017 10:26 am REASON FOR STUDY: FEVER COMPARISON: CTA of the chest dated December 2016 TECHNIQUE: CT scan performed of the chest without intravenous contrast. Images reviewed with lung, soft tissue and bone windows. Reconstructed coronal and sagittal MPR images reviewed. All images st ored on PACS. All CT scanners at this facility use dose modulation, iterative reconstruction, and/or weight based d osing when appropriate to reduce radiation dose to as low as reasonably achievable (ALARA). [facility]: Dose Right [facility]: CareDose [facility]: Dose Right [facility]: Teradose 4D [facility]: Smart Huoshi RADIATION DOSE: mGy. LIMITATIONS: No technical limitations. FINDINGS: LUNGS AND PLEURA: Tiny bilateral pleural effusions are identified with associated predomin ately basilar airspace consolidation most consistent with atelectatic changes although I cannot exclu de pneumonic consolidations. There is some thickening of the major fissure on the left most consiste nt with fluid in the fissure. HILAR AND MEDIASTINAL STRUCTURES: No identified masses or abnormal nodes. No obvious aneurysm. HEART AND VASCULAR STRUCTURES: No aneurysm. No pericardial effusion. UPPER ABDOMEN: No significant findings. Limited exam. THYROID AND OTHER SOFT TISSUES: No masses. No adenopathy. BONES: No significant finding. HARDWARE: Tracheostomy tube is identified in position. NG tube is identified with its tip in the sto mach. OTHER: No other significant findings. IMPRESSION: Tiny bilateral pleural effusions are identified with associated predominately basilar ai rspace consolidation most consistent with atelectatic changes although I cannot exclude pneumonic con solidations. Tracheostomy tube and NG tube are identified in position. Other findings as noted abov e TECHNICAL DOCUMENTATION: JOB ID: [id number] Quality ID # [id number]: Final reports with documentation of one or more dose reduction techniques (e.g., Au tomated exposure control, adjustment of the mA and/or kV according to patient size, use of iterative reconstruction technique) 2010 [employer]: [employer]- All Rights Reserved
--- NOTE | 2017-05-20 11:52 | RADIOLOGY REPORT (SQ) ---
EXAM DESCRIPTION: CT ABD/PELVIS NO ORAL OR IV COMPLETED DATE/TIME: 05/20/2017 10:26 am REASON FOR STUDY: FEVER COMPARISON: Chest CT scan dated December 2016 TECHNIQUE: CT scan of the abdomen and pelvis performed without intravenous or oral contrast. Images reviewed with lung, soft tissue, and bone windows. Reconstructed coronal and sagittal MPR images revi ewed. All images stored on PACS. All CT scanners at this facility use dose modulation, iterative reconstruction, and/or weight based d osing when appropriate to reduce radiation dose to as low as reasonably achievable (ALARA). [facility]: Dose Right [facility]: CareDose [facility]: Dose Right [facility]: Teradose 4D [facility]: Smart Project [facility] RADIATION DOSE: CT Rad equipment meets quality standard of care and radiation dose reduction techniq ues were employed. CTDIvol: 25.1 - 30.9 mGy. DLP: 2680 mGy-cm.mGy. LIMITATIONS: None. FINDINGS: LOWER CHEST: See results under chest CT scan NON-CONTRASTED LIVER, SPLEEN, ADRENALS: Evaluation limited by lack of IV contrast. No identified sign ificant masses. A small bilateral adrenal nodules are identified which appears stable. PANCREAS: No masses. No peripancreatic inflammatory changes. GALLBLADDER: No identified stones by CT criteria. No inflammatory changes to suggest cholecystitis. RIGHT KIDNEY AND URETER: No suspicious masses. Assessment limited by lack of IV contrast. No signif icant calcifications. No hydronephrosis or hydroureter. LEFT KIDNEY AND URETER: A 2 cm in diameter left renal mass is identified with a rim of relative incre ased density which may represent calcification. Assessment limited by lack of IV contrast. If clinic ally warranted a chest CT scan with IV contrast may be of value for further evaluation. No hydroneph rosis or hydroureter. AORTA AND RETROPERITONEUM: No aneurysm. No retroperitoneal masses or adenopathy. BOWEL AND PERITONEAL CAVITY: No obvious masses or inflammatory changes. No free fluid. APPENDIX: Not identified PELVIS, BLADDER, AND ABDOMINAL WALL:No abnormal masses. No free fluid. Bladder is decompressed with a Mensah catheter in the bladder. Tiny amount of air is identified in the bladder. BONES: Postsurgical changes are identified in the lumbar spine with orthopedic hardware. OTHER: NG tube is identified with the tip appearing to extend through an anastomosis with the stomach into the small bowel. IMPRESSION: Small 2 cm left renal mass with apparent rim calcification. If clinically warranted CT with IV contrast may be of value for further evaluation. Small bilateral adrenal nodules which appea rs stable when correlated with the previous study. Other findings as noted above COMMENT: Quality ID # [id number]: Final reports with documentation of one or more dose reduction techniques (e.g., Automated exposure control, adjustment of the mA and/or kV according to patient size, use of iterative reconstruction technique) TECHNICAL DOCUMENTATION: JOB ID: [id number] [email or web address]- All Rights Reserved
[2017-05-20] MEDS ORDERED: PIPERACILLIN/TAZOBACTAM 3.375 GM VIAL IV SCH (12:00)
[2017-05-20] MEDS ORDERED: PIPERACILLIN SODIUM/TAZOBACTAM 3.375 GM in NORMAL SALINE 100 ML IV SCH ×2 (12:00)
[2017-05-20 13:57] LABS: ARTERIAL BLOOD BASE EXCESS 2.6 mmol/L; ARTERIAL BLOOD H2CO3 1.37 mmol/L (1.05-1.35); ARTERIAL BLOOD HCO3 27.8 mmol/L (20-26); ARTERIAL BLOOD O2 SATURATION 88.6 % (94-98); ARTERIAL BLOOD PCO2 45.5 mmHg (35-45); ARTERIAL BLOOD TOTAL CO2 29.2 mmol/L (23-27)
[2017-05-20 13:58] LABS: ARTERIAL BLOOD FIO2 40%
--- NOTE | 2017-05-20 18:50 | XCELERA REPORT ---
[address] [address] Transthoracic Echocardiogram Report Name: SHANAE TSANG JR Age: 61 yrs Gender: Male : 1955 Patient Status: Inpatient Patient Location: ICU^610^A Study Date: 05/20/2017 02:12 PM Height: 72 in Weight: 307 lb BSA: 2.6 m2 Procedure: A complete two-dimensional transthoracic echocardiogram was performed (2D, M-mode, spectral and color flow Doppler). The study was technically difficult with many images being suboptimal in quality. Reason For Study: congestive heart Ordering Physician: RADHA HUBER Performed By: Azra Chand Interpretation Summary The study was technically difficult with many images being suboptimal in quality. The left ventricular ejection fraction is normal. There is mild to moderate concentric left ventricular hypertrophy. Doppler measurements suggest pseudonormalized left ventricular relaxation, which is associated with grade II/IV or mild to moderate diastolic dysfunction The left ventricle is grossly normal size. Wall motion cannot be accurately commented on, but no definite regional wall motion abnormalities noted. The right ventricular systolic function is normal. The right atrium is borderline dilated. The left atrium is mildly dilated. There is a trace amount of mitral regurgitation There is no mitral valve stenosis. There is no aortic valve stenosis No aortic regurgitation is present. There is no tricuspid stenosis. No tricuspid regurgitation. The aortic root is not well visualized. The inferior vena cava appeared normal and decreased < 50% with respiration (RAP 10-15 mmHg) There is no pericardial effusion. MMode/2D Measurements & Calculations RVDd: 3.4 cm LVIDd: 5.7 cmFS: 48.2 % Ao root diam: 3.6 cm IVSd: 1.3 cm LVIDs: 3.0 cmEDV(Teich): 161.6 ml LVPWd: 1.3 cmESV(Teich): 34.0 ml Ao root area: 10.2 cm2 EF(Teich): 78.9 % LA dimension: 4.4 cm LVOT diam: 2.4 cm LVOT area: 4.5 cm2 Doppler Measurements & Calculations MV E max regis: MV P1/2t max regis: Ao V2 max: LV V1 max P.4 cm/sec 50.4 cm/sec 210.2 cm/sec 8.6 mmHg MV A max regis: MV P1/2t: 57.2 msec Ao max PG: LV V1 max: 64.8 cm/sec MVA(P1/2t): 3.8 cm2 17.7 mmHg 146.4 cm/sec MV E/A: 0.76 MV dec slope: REBECCA(V,D): 3.1 cm2 257.8 cm/sec2 PA V2 max: 92.8 cm/sec PA max P.4 mmHg Left Ventricle The left ventricle is grossly normal size. There is mild to moderate concentric left ventricular hypertrophy. The left ventricular ejection fraction is normal. Doppler measurements suggest pseudonormalized left ventricular relaxation, which is associated with grade II/IV or mild to moderate diastolic dysfunction. Wall motion cannot be accurately commented on, but no definite regional wall motion abnormalities noted. Right Ventricle The right ventricle is grossly normal size. There is normal right ventricular wall thickness. The right ventricular systolic function is normal. Atria The right atrium is borderline dilated. The left atrium is mildly dilated. Interarterial septum not well visualized and not well dopplered. Cannot comment on ASD/PFO presence. Mitral Valve The mitral valve leaflets are sclerotic, but show no functional abnormalities. There is no mitral valve stenosis. There is a trace amount of mitral regurgitation. Aortic Valve The aortic valve is not well visualized secondary to technical limitations. There is no aortic valve stenosis. No aortic regurgitation is present. Tricuspid Valve The tricuspid valve is not well visualized secondary to technical limitations. There is no tricuspid stenosis. No tricuspid regurgitation. Pulmonic Valve The pulmonic valve is not well visualized. Great Vessels The aortic root is not well visualized. The inferior vena cava appeared normal and decreased < 50% with respiration (RAP 10-15 mmHg). Effusions There is no pericardial effusion. : RADHA HUBER > Brad Piper
--- NOTE | 2017-05-20 19:50 | PDOC CONSULTATION ---
Consultation Consult Date: 05/20/17 Attending physician:: RADHA HUBER Consult reason:: Coronary artery disease History of Present Illness Admission Date/PCP: 05/19/17 04:18 Patient complains of: Intubated and sedated History of Present Illness: SHANAE TSANG JR is a 61 year old male with a history of recurrent angioedema who was brought to the ER by his with complaints of swelling of the airway. Patient has had recurrent hospitalizations for angioedema resulting in intubation. This time intubation was unsuccessful. Surgery was called for emergent tracheostomy. Patient is currently in the ICU that is post tracheostomy. Patient is ventilated and sedated. This history was reviewed and confirmed. Previous hospitalization records were reviewed. Family members not available to add this history. Nurses claim patient's vital signs has been stable. He has been noted to be intermittently tachycardic. Past Medical History Cardiac Medical History: Reports: Atrial Fibrillation, Congestive Heart Failure , Hyperlipidema, Hypertension, Pulmonary Embolism Denies: Coronary Artery Disease, Myocardial Infarction, Peripheral Vascular Disease, Heart Murmur Pulmonary Medical History: Reports: Asthma, Chronic Obstructive Pulmonary Disease (COPD), Pneumonia - 7 years ago, Sleep Apnea - hx only, not a current problem, no CPAP, Tuberculosis Denies: Bronchitis, Respiratory Failure Neurological Medical History: Denies: Migraine Endocrine Medical History: Reports: Diabetes Mellitus Type 2 Denies: Hyperthyroidism, Hypothyroidism Renal/ Medical History: Denies: End Stage Renal Disease Malignancy Medical History: Denies: Lung Cancer GI Medical History: Reports: Gastroesophageal Reflux Disease, Hepatitis - Hep C Denies: Cirrhosis, Crohn's Disease, Hiatal Hernia, Ulcerative Colitis Musculoskeltal Medical History: Reports: Arthritis Denies: Fibromyalgia Skin Medical History: Denies: Psoriasis Psychiatric Medical History: Denies: Bipolar Disorder, Dementia, Depression, Post Traumatic Stress Disorder Traumatic Medical History: Denies: Traumatic Brain Injury Hematology: Denies: Sickle Cell Disease, Bleeding Tendencies Past Surgical History Past Surgical History: Reports: Appendectomy, Herniorrhaphy, Orthopedic Surgery - Spinal fusion. Meniscus repair., Other - Tracheostomy on 05/19/2017 Denies: Cholecystectomy, Colostomy, Coronary Artery Bypass Graft, Gastric Bypass Surgery, Pacemaker, Tonsillectomy Social History Information Source: [facility] Records Smoking Status: Unknown if Ever Smoked Frequency of Alcohol Use: None Hx Recreational Drug Use: No Drugs: Cocaine - Patient admitted to cocaine use when confronted Hx Prescription Drug Abuse: No - Advance Directive Resuscitation Status: Full Code Surrogate healthcare decision maker:: Patient's is the surrogate decision maker Family History Family History: Arthritis, CAD - Mother and brother, CVA, DM, Hyperlipidemia, Hypertension, Malignancy Parental Family History Reviewed: Yes Children Family History Reviewed: Yes Sibling(s) Family History Reviewed.: Yes Medication/Allergy Home Medications: Albuterol Sulfate [Proair HFA Inhalation Aerosol 8.5 gm MDI] 2 puff IH Q6HP PRN 05/19/17 Amitriptyline HCl [Elavil 25 mg Tablet] 75 mg PO QHS 05/19/17 Amlodipine Besylate [Norvasc 10 mg Tablet] 10 mg PO DAILY 05/19/17 Apixaban [Eliquis 5 mg Tablet] 5 mg PO Q12 05/19/17 Ascorbic Acid [Vitamin C 500 mg Tablet] 500 mg PO DAILY 05/19/17 Aspirin [Ecotrin 81 mg EC Tablet] 81 mg PO DAILY 05/19/17 Budesonide/Formoterol Fumarate [Symbicort 160-4.5 Mcg Inhaler] 2 puff IH Q12 10/27 Dextrose [Glucose] 1 tab PO QIDP PRN 05/19/17 Epinephrine [Epipen] 3 ml IM ONCEP PRN 05/19/17 Ferrous Sulfate 324 mg PO DAILY 05/19/17 Fluticasone Propionate [Flonase Nasal [place] 50 Mcg/[place] 16 gm] 1 spray NASL DAILY 05/19/17 Furosemide [Lasix 20 mg Tablet] 20 mg PO DAILY 05/19/17 Gabapentin [Neurontin 100 mg Capsule] 100 mg PO Q8 05/19/17 Hydrochlorothiazide [Hydrodiuril 25 mg Tablet] 25 mg PO DAILY 05/19/17 Insulin Aspart [Novolog Flexpen] 18 units SQ [id number] 05/19/17 Insulin Aspart [Novolog Flexpen] 25 units SQ BIDLS 05/19/17 Insulin Glargine,Hum.rec.anlog [Lantus Solostar] 60 unit SQ QHS 05/19/17 Isosorbide Mononitrate [Isosorbide Mononitrate ER] 30 mg PO QAM 05/19/17 Metformin HCl [Glucophage] 1,000 mg PO BIDACBS 05/19/17 Metoprolol Tartrate [Lopressor 50 mg Tablet] 25 mg PO Q12 05/19/17 Omeprazole 40 mg PO DAILY 05/19/17 Pravastatin Sodium [Pravachol] 20 mg PO QHS 05/19/17 Ranitidine HCl [Zantac 150 mg Tablet] 150 mg PO QHS 05/19/17 Sildenafil Citrate [Viagra] 100 mg PO DAILYP PRN 05/19/17 Terazosin HCl [Hytrin] 4 mg PO QHS 05/19/17 Tiotropium [place] [Spiriva Handihaler 5 Cap/Kit (18 Mcg/Cap)] 1 puff IH DAILY 05/19/17 Tramadol HCl [Ultram 50 mg Tablet] 50 mg PO Q6 05/19/17 Allergies/Adverse Reactions: codeine [Codeine] Allergy (Severe, Verified 04/21/17 09:33) Facial swelling hydrocodone bitartrate [From Vicodin] Allergy (Severe, Verified 04/21/17 09:33) Anaphylaxis lisinopril Allergy (Severe, Verified 04/21/17 09:33) Anaphylaxis hydromorphone [From Dilaudid] Allergy (Verified 04/21/17 09:33) Difficulty breathing Iodine and Iodide Containing Produc Allergy (Verified 04/21/17 09:33) Anaphylaxis morphine Allergy (Verified 04/21/17 09:33) Itching oxycodone Allergy (Verified 04/21/17 09:33) Swelling of tongue shellfish derived Allergy (Verified 04/21/17 09:33) Anaphylaxis Review of Systems ROS unobtainable: Due to endotracheal tube Physical Exam Vital Signs: Temp Pulse Resp BP Pulse Ox 100.2 F 105 H 22 H 134/93 H 100 05/20/17 18:00 05/20/17 18:00 05/20/17 18:15 05/20/17 18:00 05/20/17 18:15 Intake & Output 05/19/17 05/20/17 05/21/17 06:59 06:59 06:59 Intake Total 0 4320 1668 Output Total 2630 3035 Balance 0 1690 -1367 Weight 139.3 kg Exam: GENERAL: well-nourished and in no acute distress. Patient is tracheally intubated and sedated. Orientation cannot be checked HEAD: Atraumatic, normocephalic. EYES: Pupils equal round and reactive to light, extraocular movements could not be checked, sclera anicteric, conjunctiva are normal. ENT: TMs normal, nares patent, oropharynx clear without exudates. Moist mucous membranes. No oral ulcerations or bleeding gums noted NECK: supple without lymphadenopathy or JVD. Trachea is central. No cervical or axillary lymphadenopathy noted. Carotids are 2+. Central tracheostomy noted with ET tube through the tracheostomy LUNGS: Breath sounds mostly clear to auscultation patient is noted to have bibasal crackles at the extreme bases CHEST: Palpation of the chest wall shows no significant chest wall tenderness or abnormalities. 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 ABDOMEN: Soft, no significant tenderness appreciated, normoactive bowel sounds. No guarding, no rebound. No rigidity noted . No masses appreciated. EXTREMITIES: Pedal pulses are 1-2+, no calf tenderness noted, 1+ pedal edema noted. No clubbing or cyanosis. NEUROLOGICAL: The patient cannot participate in the neurological exam but no facial asymmetry noted. Extremities slightly hypotonic PSYCH: This cannot be evaluated. Patient cannot participate. SKIN: No significant ecchymosis, rash, or signs of pruritus noted. MUSCULOSKELETAL EXAM: No significant joint swelling noted. Patient cannot participate in musculoskeletal exam Results Laboratory Results: 05/20/17 04:06 05/20/17 04:06 05/20/17 05/20/17 05/20/17 04:06 04:06 05:50 WBC 9.6 RBC 4.11 L Hgb 12.1 L Hct 36.7 L MCV 89 MCH 29.4 MCHC 33.0 RDW 14.2 H Plt Count 132 L Seg Neutrophils % 76.4 Lymphocytes % 10.1 L Monocytes % 12.4 Eosinophils % 0.5 Basophils % 0.6 Absolute Neutrophils 7.3 Absolute Lymphocytes 1.0 Absolute Monocytes 1.2 Absolute Eosinophils 0.0 Absolute Basophils 0.1 Carbonic Acid 1.52 H HCO3/H2CO3 Ratio 17:1 ABG pH 7.35 ABG pCO2 50.6 H ABG pO2 32.2 L* ABG HCO3 27.2 H ABG O2 Saturation 57.9 L ABG Base Excess 0.9 FiO2 50% Sodium 136.6 L Potassium 4.2 D Chloride 103 Carbon Dioxide 26 Anion Gap 8 BUN 11 Creatinine 0.57 Est GFR ( Amer) > 60 Est GFR (Non-Af Amer) > 60 Glucose 154 H Calcium 7.6 L Magnesium 1.6 Total Bilirubin 0.4 AST 16 L ALT 25 Alkaline Phosphatase 55 Total Protein 5.3 L Albumin 3.1 L 05/20/17 05/20/17 06:32 13:40 WBC RBC Hgb Hct MCV MCH MCHC RDW Plt Count Seg Neutrophils % Lymphocytes % Monocytes % Eosinophils % Basophils % Absolute Neutrophils Absolute Lymphocytes Absolute Monocytes Absolute Eosinophils Absolute Basophils Carbonic Acid 1.21 1.37 H HCO3/H2CO3 Ratio 20:1 20:1 ABG pH 7.42 7.40 ABG pCO2 40.1 45.5 H ABG pO2 79.1 L 55.0 L ABG HCO3 25.1 27.8 H ABG O2 Saturation 95.9 88.6 L ABG Base Excess 0.6 2.6 FiO2 40% 40% Sodium Potassium Chloride Carbon Dioxide Anion Gap BUN Creatinine Est GFR ( Amer) Est GFR (Non-Af Amer) Glucose Calcium Magnesium Total Bilirubin AST ALT Alkaline Phosphatase Total Protein Albumin EKG Comments: Sinus tachycardia without any significant ST-T wave changes noted. 2D echo shows normal LVEF. No significant valvular abnormalities noted. Impressions: Abdomen/Pelvis CT 05/20/17 00:00 IMPRESSION: Small 2 cm left renal mass with apparent rim calcification. If clinically warranted CT with IV contrast may be of value for further evaluation. Small bilateral adrenal nodules which appears stable when correlated with the previous study. Other findings as noted above Chest CT 05/20/17 00:00 IMPRESSION: Tiny bilateral pleural effusions are identified with associated predominately basilar airspace consolidation most consistent with atelectatic changes although I cannot exclude pneumonic consolidations. Tracheostomy tube and NG tube are identified in position. Other findings as noted above Chest X-Ray 05/20/17 06:00 IMPRESSION: 1. Tubes and lines in appropriate radiographic position. 2. Possible small left pleural effusion with streaky bibasilar opacities which may be related to atelectasis. Assessment & Plan - Diagnosis (1) Acute airway obstruction Is this a current diagnosis for this admission?: Yes (2) Angioedema Qualifiers: Encounter type: initial encounter Qualified Code(s): T78.3XXA - Angioneurotic edema, initial encounter Is this a current diagnosis for this admission?: Yes (3) GRACY (obstructive sleep apnea) Is this a current diagnosis for this admission?: Yes (4) COPD (chronic obstructive pulmonary disease) Qualifiers: COPD type: unspecified COPD Qualified Code(s): J44.9 - Chronic obstructive pulmonary disease, unspecified Is this a current diagnosis for this admission?: Yes (5) Diabetes Qualifiers: Diabetes mellitus type: type 2 Diabetes mellitus complication status: with diabetic arthropathy Diabetes mellitus complication detail: with other arthropathy 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 use Qualified Code(s): E11.618 - Type 2 diabetes mellitus with other diabetic arthropathy; Z79.4 - intermediate designer (current) use of insulin; Z79.4 - retirement ( current) use of insulin; Z79.4 - intermediate designer (current) use of insulin; Z79.4 - intermediate designer (current) use of insulin Is this a current diagnosis for this admission?: Yes (6) Hypertension Qualifiers: Hypertension type: essential hypertension Qualified Code(s): I10 - Essential (primary) hypertension Is this a current diagnosis for this admission?: Yes (7) Drug abuse Is this a current diagnosis for this admission?: Yes (8) CAD (coronary artery disease) Qualifiers: Coronary Disease-Associated Artery/Lesion type: [place] artery [place] vs. transplanted heart: [place] heart Associated angina: angina presence unspecified Qualified Code(s): I25.10 - Atherosclerotic heart disease of [place] coronary artery without angina pectoris Is this a current diagnosis for this admission?: Yes - Notes Notes: Patient and noted to have acute airway obstruction secondary to angioedema. Exact etiology of angioedema not. But is recurrent. Lisinopril is listed in the allergy but patient did not seem to receive it. At this point patient may have idiopathic recurrent angioedema and may benefit from rheumatology/oncology consultation. Patient should avoid street drugs. As regards tachycardia: This is felt to be mainly metabolic. COPD: Patient will benefit from drug abuse cessation and also smoking cessation. Diabetes: Would leave management plans to manager utilities/hospitalist/PMD. Hypertension: Currently reasonably well controlled. Obesity: Stable CAD: Patient has history of CAD but currently EKG showing no significant ST-T wave changes. Monitor for any cardiac dysrhythmia, EKG changes etc. Sleep apnea syndrome: Adequately treated with tracheostomy and endotracheal intubation at this point. Patient will benefit from long-term weight loss. 2D echo results were reviewed. It shows normal LVEF, diastolic dysfunction. - Time Time Spent: 30 to 50 Minutes - CODE STATUS was discussed, patient remains full code. Surrogate decision-maker unchanged. Multiple medical problems were addressed. More than 50% of the time spent coordinating care, discussing management plans with involved caregivers. Management plans discussed with involved personnels. Medical decision making was of moderate to high complexity , patient's has multiple comorbidities. Medications reviewed and adjusted accordingly: Yes
--- NOTE | 2017-05-20 22:34 | EKG REPORT ---
SEVERITY:- BORDERLINE ECG - SINUS RHYTHM PROBABLE LEFT ATRIAL ABNORMALITY : Confirmed by: Brad Piper 20-May-2017 22:33:39
[2017-05-21] MEDS: MIDAZOLAM HCL 50 MG/100 ML RTUINJ IV PRN ×6 (01:15→23:28)
[2017-05-21] MEDS: IPRATROPIUM/ALBUTEROL 0.5-2.5 MG/3 ML AMPUL NEB SCH ×4 (02:24→20:04)
[2017-05-21] MEDS: PIPERACILLIN SODIUM/TAZOBACTAM 3.375 GM in NORMAL SALINE 100 ML IV SCH ×4 (03:18→22:02)
[2017-05-21 04:23] LABS: ABSOLUTE EOSINOPHILS # (AUTO) 0.1 10^3/uL (0.0-0.6); ABSOLUTE LYMPHOCYTES (AUTO) 1.3 10^3/uL (0.5-4.7); ABSOLUTE MONOCYTES (AUTO) 1.2 10^3/uL (0.1-1.4); ABSOLUTE NEUT (AUTO) 5.8 10^3/uL (1.7-8.2); BASOPHILS % (AUTO) 0.2 % (0-2); EOSINOPHILS % (AUTO) 0.7 % (0-6); HEMATOCRIT 36.9 % (37.9-51.0); HEMOGLOBIN 12.2 g/dL (13.5-17.0); LYMPHOCYTES % (AUTO) 15.2 % (13-45); MEAN CORPUSCULAR HEMOGLOBIN 29.5 pg (27.0-33.4); MEAN CORPUSCULAR VOLUME 89 fl (80-97); MONOCYTES % (AUTO) 14.6 % (3-13); PLATELET COUNT 132 10^3/uL (150-450); RED BLOOD COUNT 4.13 10^6/uL (4.35-5.55); RED CELL DISTRIBUTION WIDTH 14.6 % (11.5-14.0); SEGMENTED NEUTROPHILS % (AUTO) 69.3 % (42-78); TOTAL CELLS COUNTED % (AUTO) 100 %; WHITE BLOOD COUNT 8.4 10^3/uL (4.0-10.5)
[2017-05-21 04:39] LABS: ARTERIAL BLOOD BASE EXCESS 1.7 mmol/L; ARTERIAL BLOOD H2CO3 1.23 mmol/L (1.05-1.35); ARTERIAL BLOOD HCO3 26.2 mmol/L (20-26); ARTERIAL BLOOD O2 SATURATION 95.9 % (94-98); ARTERIAL BLOOD PH 7.42 (7.35-7.45); ARTERIAL BLOOD TOTAL CO2 27.5 mmol/L (23-27)
[2017-05-21 04:40] LABS: ARTERIAL BLOOD FIO2 40%
[2017-05-21 04:44] LABS: ALANINE AMINOTRANSFERASE 21 U/L (21-72); ALBUMIN 2.9 g/dL (3.5-5.0); ALKALINE PHOSPHATASE 58 U/L (38-126); ANION GAP 5 (5-19); ASPARTATE AMINO TRANSFERASE 9 U/L (17-59); BILIRUBIN,DIRECT 0.2 mg/dL (0.0-0.4); BILIRUBIN,TOTAL 0.6 mg/dL (0.2-1.3); BLOOD UREA NITROGEN 8 mg/dL (7-20); CALCIUM 7.8 mg/dL (8.4-10.2); CARBON DIOXIDE 28 mmol/L (22-30); CHLORIDE 106 mmol/L (98-107); GLUCOSE 155 mg/dL (75-110); POTASSIUM 3.8 mmol/L (3.6-5.0); SODIUM 139.3 mmol/L (137-145); TOTAL PROTEIN 5.2 g/dL (6.3-8.2)
[2017-05-21] MEDS: HEPARIN SOD (PORCINE) 5,000 UNIT/ML 1 ML SYRINGE SUBCUT SCH ×2 (05:24→13:28)
--- NOTE | 2017-05-21 06:47 | RADIOLOGY REPORT (SQ) ---
EXAM DESCRIPTION: CHEST SINGLE VIEW CLINICAL HISTORY: Respiratory failure COMPARISON: 04/23/2017 FINDINGS: Single frontal view of the chest. Interval placement of tracheostomy.. NG tube with tip below the diaphragm. Heart is not enlarged. Likely left pleural effusion with underlying consolidation or atelectasis. Heart is not enlarged. No pneumothorax. No acute osseous abnormalities. Upper abdominal soft tissues are unremarkable. IMPRESSION: 1. Persistent left basilar opacity and left pleural effusion. Stable appearance of the chest. Electronically signed by: Mikal Morse 05/21/2017 5:45 AM
[2017-05-21] MEDS: FENTANYL CITRATE INJ/PF 100 MCG/2 ML AMPUL IV PRN ×2 (09:15→13:29)
[2017-05-21] MEDS: FLUTICASONE NASAL SPRAY 50 MCG/SPRY 120 SPRAY/16 GM NASL SCH (09:17)
[2017-05-21] MEDS: BUDESONIDE/FORMOTEROL 160-4.5 MCG 60 PUFF/6 GM MDI IH SCH ×2 (09:17→22:03)
[2017-05-21] MEDS: METOPROLOL TARTRATE 50 MG TABLET PO SCH ×2 (10:20→22:02)
[2017-05-21] MEDS: FAMOTIDINE INJ/PF 20 MG/2 ML SDV IV SCH ×2 (10:21→22:01)
--- NOTE | 2017-05-21 12:14 | PDOC PROGRESS REPORT ---
Subjective Progress Note for:: 05/21/17 Subjective:: POD #2 s/p tracheostomy for angioedema and subglottic stenosis No new tracheostomy-related issues. Still on mechanical ventilation. Reason For Visit: ANGIOEDEMA, RESPIRATORY FAILURE Physical Exam Vital Signs: Temp Pulse Resp BP Pulse Ox 99.1 F 107 H 24 H 141/93 H 99 05/21/17 10:00 05/21/17 10:00 05/21/17 10:00 05/21/17 10:00 05/21/17 10:00 Intake & Output 05/20/17 05/21/17 05/22/17 06:59 06:59 06:59 Intake Total 4320 2763 Output Total 2630 5552 700 Balance 1690 -9372 -700 Weight 139.3 kg 135 kg General appearance: PRESENT: obese, other - on mechanical ventilation. Head exam: PRESENT: atraumatic Neck exam: PRESENT: tracheostomy Respiratory exam: PRESENT: clear to auscultation angelina. ABSENT: rales, rhonchi, wheezes Cardiovascular exam: PRESENT: RRR. ABSENT: diastolic murmur, rubs, systolic murmur GI/Abdominal exam: PRESENT: soft Gentrourinary exam: PRESENT: indwelling catheter Neurological exam: PRESENT: other - sedated Results Laboratory Results: 05/21/17 03:46 05/21/17 03:46 05/20/17 05/21/17 05/21/17 13:40 03:46 03:46 WBC 8.4 RBC 4.13 L Hgb 12.2 L Hct 36.9 L MCV 89 MCH 29.5 MCHC 33.0 RDW 14.6 H Plt Count 132 L Seg Neutrophils % 69.3 Lymphocytes % 15.2 Monocytes % 14.6 H Eosinophils % 0.7 Basophils % 0.2 Absolute Neutrophils 5.8 Absolute Lymphocytes 1.3 Absolute Monocytes 1.2 Absolute Eosinophils 0.1 Absolute Basophils 0.0 Carbonic Acid 1.37 H HCO3/H2CO3 Ratio 20:1 ABG pH 7.40 ABG pCO2 45.5 H ABG pO2 55.0 L ABG HCO3 27.8 H ABG O2 Saturation 88.6 L ABG Base Excess 2.6 FiO2 40% Sodium 139.3 Potassium 3.8 Chloride 106 Carbon Dioxide 28 Anion Gap 5 BUN 8 Creatinine 0.62 Est GFR ( Amer) > 60 Est GFR (Non-Af Amer) > 60 Glucose 155 H Calcium 7.8 L Magnesium 1.8 Total Bilirubin 0.6 AST 9 L ALT 21 Alkaline Phosphatase 58 Total Protein 5.2 L Albumin 2.9 L 05/21/17 04:32 WBC RBC Hgb Hct MCV MCH MCHC RDW Plt Count Seg Neutrophils % Lymphocytes % Monocytes % Eosinophils % Basophils % Absolute Neutrophils Absolute Lymphocytes Absolute Monocytes Absolute Eosinophils Absolute Basophils Carbonic Acid 1.23 HCO3/H2CO3 Ratio 21:1 ABG pH 7.42 ABG pCO2 41.0 ABG pO2 79.0 L ABG HCO3 26.2 H ABG O2 Saturation 95.9 ABG Base Excess 1.7 FiO2 40% Sodium Potassium Chloride Carbon Dioxide Anion Gap BUN Creatinine Est GFR ( Amer) Est GFR (Non-Af Amer) Glucose Calcium Magnesium Total Bilirubin AST ALT Alkaline Phosphatase Total Protein Albumin Impressions: Abdomen/Pelvis CT 05/20/17 00:00 IMPRESSION: Small 2 cm left renal mass with apparent rim calcification. If clinically warranted CT with IV contrast may be of value for further evaluation. Small bilateral adrenal nodules which appears stable when correlated with the previous study. Other findings as noted above Chest CT 05/20/17 00:00 IMPRESSION: Tiny bilateral pleural effusions are identified with associated predominately basilar airspace consolidation most consistent with atelectatic changes although I cannot exclude pneumonic consolidations. Tracheostomy tube and NG tube are identified in position. Other findings as noted above Chest X-Ray 05/21/17 06:00 IMPRESSION: 1. Persistent left basilar opacity and left pleural effusion. Stable appearance of the chest. Assessment & Plan - Diagnosis (1) Acute airway obstruction Is this a current diagnosis for this admission?: Yes (2) Angioedema Qualifiers: Encounter type: initial encounter Qualified Code(s): T78.3XXA - Angioneurotic edema, initial encounter Is this a current diagnosis for this admission?: Yes (3) Acute respiratory failure Qualifiers: Respiratory failure complication: hypoxia and hypercapnia Qualified Code(s) : J96.01 - Acute respiratory failure with hypoxia; J96.02 - Acute respiratory failure with hypercapnia; J96.02 - Acute respiratory failure with hypercapnia; J96.02 - Acute respiratory failure with hypercapnia Is this a current diagnosis for this admission?: Yes - Plan Summary Plan Summary: Please let surgery know when patient is extubated and ready for a cuffless tracheostomy tube. We will not be seeing him daily.
--- NOTE | 2017-05-21 16:51 | PDOC PROGRESS REPORT ---
Subjective Progress Note for:: 05/21/17 Subjective:: Nurse states that patient is maxed out on Versed and when she titrates Versed down patient becomes very agitated/combative. Nursing requesting for sedative Reason For Visit: ANGIOEDEMA, RESPIRATORY FAILURE Physical Exam Vital Signs: Temp Pulse Resp BP Pulse Ox 100.2 F 107 H 24 H 135/86 H 98 05/21/17 14:00 05/21/17 14:30 05/21/17 14:30 05/21/17 14:27 05/21/17 15:51 Intake & Output 05/20/17 05/21/17 05/22/17 06:59 06:59 06:59 Intake Total 4320 2763 Output Total 2636 5547 1120 Balance 4330 -7664 -1120 Weight 139.3 kg 135 kg General appearance: PRESENT: no acute distress, well-developed, well-nourished Head exam: PRESENT: normocephalic Eye exam: PRESENT: conjunctiva pink, EOMI Ear exam: PRESENT: normal external ear exam Mouth exam: PRESENT: other - Trach in place on vent Neck exam: PRESENT: tracheostomy. ABSENT: lymphadenopathy Respiratory exam: PRESENT: clear to auscultation angelina Cardiovascular exam: PRESENT: RRR. ABSENT: diastolic murmur, rubs, systolic murmur Pulses: PRESENT: normal dorsalis pedis pul Vascular exam: PRESENT: normal capillary refill GI/Abdominal exam: PRESENT: normal bowel sounds, soft. ABSENT: distended, guarding, mass, organolmegaly, rebound, tenderness Rectal exam: PRESENT: deferred Extremities exam: ABSENT: calf tenderness, clubbing, full ROM, joint swelling, pedal edema, tenderness, +1 edema, +2 edema, other Neurological exam: PRESENT: other - sedated Skin exam: PRESENT: dry, intact, warm Results Laboratory Results: 05/21/17 03:46 05/21/17 03:46 05/21/17 05/21/17 05/21/17 03:46 03:46 04:32 WBC 8.4 RBC 4.13 L Hgb 12.2 L Hct 36.9 L MCV 89 MCH 29.5 MCHC 33.0 RDW 14.6 H Plt Count 132 L Seg Neutrophils % 69.3 Lymphocytes % 15.2 Monocytes % 14.6 H Eosinophils % 0.7 Basophils % 0.2 Absolute Neutrophils 5.8 Absolute Lymphocytes 1.3 Absolute Monocytes 1.2 Absolute Eosinophils 0.1 Absolute Basophils 0.0 Carbonic Acid 1.23 HCO3/H2CO3 Ratio 21:1 ABG pH 7.42 ABG pCO2 41.0 ABG pO2 79.0 L ABG HCO3 26.2 H ABG O2 Saturation 95.9 ABG Base Excess 1.7 FiO2 40% Sodium 139.3 Potassium 3.8 Chloride 106 Carbon Dioxide 28 Anion Gap 5 BUN 8 Creatinine 0.62 Est GFR ( Amer) > 60 Est GFR (Non-Af Amer) > 60 Glucose 155 H Calcium 7.8 L Magnesium 1.8 Total Bilirubin 0.6 AST 9 L ALT 21 Alkaline Phosphatase 58 Total Protein 5.2 L Albumin 2.9 L Impressions: Abdomen/Pelvis CT 05/20/17 00:00 IMPRESSION: Small 2 cm left renal mass with apparent rim calcification. If clinically warranted CT with IV contrast may be of value for further evaluation. Small bilateral adrenal nodules which appears stable when correlated with the previous study. Other findings as noted above Chest CT 05/20/17 00:00 IMPRESSION: Tiny bilateral pleural effusions are identified with associated predominately basilar airspace consolidation most consistent with atelectatic changes although I cannot exclude pneumonic consolidations. Tracheostomy tube and NG tube are identified in position. Other findings as noted above Chest X-Ray 05/21/17 06:00 IMPRESSION: 1. Persistent left basilar opacity and left pleural effusion. Stable appearance of the chest. Assessment & Plan - Diagnosis (1) Acute airway obstruction Is this a current diagnosis for this admission?: Yes Plan: Secondary to angioedema status post trach placement: Patient is doing well on vent and appreciate pulmonary's assistance of care. (2) Fever Is this a current diagnosis for this admission?: Yes Plan: Etiology unclear. Could be related to patient's trach placement: Cultures ordered. Endotracheal culture obtained. Will continue Zosyn. CT of chest abdomen and pelvis unrevealing. Patient's fever trend has improved since been on antibiotics. (3) Angioedema Qualifiers: Encounter type: initial encounter Qualified Code(s): T78.3XXA - Angioneurotic edema, initial encounter Is this a current diagnosis for this admission?: Yes Plan: Most likely secondary to cocaine abuse: Patient currently trached. Have on 2 occasions told patient to discontinue cocaine use. Patient on urine tox is positive for cocaine. [facility] was contacted in regards to nursing's request for steroids and antihistamines. ENT recommended no additional treatment required due to patient being trached. ENT reported that if patient has airway edema then steroids and antihistamines could be used. The current time patient is satting well on vent. (4) Congestive heart failure Qualifiers: Qualified Code(s): I50.32 - Chronic diastolic (congestive) heart failure Is this a current diagnosis for this admission?: Yes Plan: Stable (5) GRACY (obstructive sleep apnea) Is this a current diagnosis for this admission?: Yes Plan: Pt currently S/P Trach. (6) Cocaine abuse Is this a current diagnosis for this admission?: Yes Plan: Will continue encourage discontinuation of cocaine use. (7) Pulmonary embolism Qualifiers: Chronicity: unspecified Acute cor pulmonale presence: without acute cor pulmonale Is this a current diagnosis for this admission?: No Plan: History of PE: We will restart Eliquis. (8) Tachycardia Is this a current diagnosis for this admission?: Yes Plan: In setting of fever: Improved. (9) Volume overload Is this a current diagnosis for this admission?: Yes Plan: Resolved (10) Hypertension secondary to drug Is this a current diagnosis for this admission?: Yes Plan: Resolved. (11) Agitation Is this a current diagnosis for this admission?: Yes Plan: Valium 10 mg TID PRN. (12) DVT prophylaxis Is this a current diagnosis for this admission?: Yes Plan: Eliquis - Time Time Spent with patient: 25-34 minutes
--- NOTE | 2017-05-21 20:35 | PDOC PROGRESS REPORT ---
Subjective Progress Note for:: 05/21/17 Subjective:: Patient about the same and has made very little progress. There is no significant change in general condition. Patient remains endotracheally intubated through tracheostomy tube. He has been noted to have intermittent agitation especially during suctioning. Patient remains intubated, sedated, patient however looks comfortable and in acute distress. Medications reviewed. Reason For Visit: ANGIOEDEMA, RESPIRATORY FAILURE Physical Exam Vital Signs: Temp Pulse Resp BP Pulse Ox 100.6 F H 119 H 24 H 156/6 H 100 05/21/17 20:00 05/21/17 20:04 05/21/17 20:04 05/21/17 18:00 05/21/17 20:04 Intake & Output 05/20/17 05/21/17 05/22/17 06:59 06:59 06:59 Intake Total 4320 2763 994 Output Total 2634 5593 9457 Balance 0250 -3577 -542 Weight 139.3 kg 135 kg Exam: GENERAL: well-nourished and in no acute distress. Patient is intubated and sedated. Orientation cannot be checked HEAD: Atraumatic, normocephalic. EYES: Pupils equal round and reactive to light, extraocular movements could not be checked, sclera anicteric, conjunctiva are normal. ENT: TMs normal, nares patent, oropharynx clear without exudates. Moist mucous membranes. No oral ulcerations or bleeding gums noted NECK: supple without lymphadenopathy or JVD. Trachea is central. No cervical or axillary lymphadenopathy noted. Carotids are 2+. Central tracheostomy noted LUNGS: Breath sounds mostly clear to auscultation patient is noted to have bibasal crackles at the extreme bases CHEST: Palpation of the chest wall shows no significant chest wall tenderness or abnormalities. 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 ABDOMEN: Soft, no significant tenderness appreciated, normoactive bowel sounds. No guarding, no rebound. No rigidity noted . No masses appreciated. EXTREMITIES: Pedal pulses are 1-2+, no calf tenderness noted, 1+ pedal edema noted. No clubbing or cyanosis. NEUROLOGICAL: The patient cannot participate in the neurological exam but no facial asymmetry noted. Extremities slightly hypotonic PSYCH: This cannot be evaluated. Patient cannot participate. SKIN: No significant ecchymosis, rash, or signs of pruritus noted. MUSCULOSKELETAL EXAM: No significant joint swelling noted. Patient cannot participate in musculoskeletal exam Results Laboratory Results: 05/21/17 03:46 05/21/17 03:46 05/21/17 05/21/17 05/21/17 03:46 03:46 04:32 WBC 8.4 RBC 4.13 L Hgb 12.2 L Hct 36.9 L MCV 89 MCH 29.5 MCHC 33.0 RDW 14.6 H Plt Count 132 L Seg Neutrophils % 69.3 Lymphocytes % 15.2 Monocytes % 14.6 H Eosinophils % 0.7 Basophils % 0.2 Absolute Neutrophils 5.8 Absolute Lymphocytes 1.3 Absolute Monocytes 1.2 Absolute Eosinophils 0.1 Absolute Basophils 0.0 Carbonic Acid 1.23 HCO3/H2CO3 Ratio 21:1 ABG pH 7.42 ABG pCO2 41.0 ABG pO2 79.0 L ABG HCO3 26.2 H ABG O2 Saturation 95.9 ABG Base Excess 1.7 FiO2 40% Sodium 139.3 Potassium 3.8 Chloride 106 Carbon Dioxide 28 Anion Gap 5 BUN 8 Creatinine 0.62 Est GFR ( Amer) > 60 Est GFR (Non-Af Amer) > 60 Glucose 155 H Calcium 7.8 L Magnesium 1.8 Total Bilirubin 0.6 AST 9 L ALT 21 Alkaline Phosphatase 58 Total Protein 5.2 L Albumin 2.9 L EKG Comments: Shows sinus rhythm mostly in normal range with mild intermittent tachycardia during agitation. Impressions: Abdomen/Pelvis CT 05/20/17 00:00 IMPRESSION: Small 2 cm left renal mass with apparent rim calcification. If clinically warranted CT with IV contrast may be of value for further evaluation. Small bilateral adrenal nodules which appears stable when correlated with the previous study. Other findings as noted above Chest CT 05/20/17 00:00 IMPRESSION: Tiny bilateral pleural effusions are identified with associated predominately basilar airspace consolidation most consistent with atelectatic changes although I cannot exclude pneumonic consolidations. Tracheostomy tube and NG tube are identified in position. Other findings as noted above Chest X-Ray 05/21/17 06:00 IMPRESSION: 1. Persistent left basilar opacity and left pleural effusion. Stable appearance of the chest. Assessment & Plan - Diagnosis (1) Acute airway obstruction Is this a current diagnosis for this admission?: Yes (2) Angioedema Qualifiers: Encounter type: initial encounter Qualified Code(s): T78.3XXA - Angioneurotic edema, initial encounter Is this a current diagnosis for this admission?: Yes (3) GRACY (obstructive sleep apnea) Is this a current diagnosis for this admission?: Yes (4) COPD (chronic obstructive pulmonary disease) Qualifiers: COPD type: unspecified COPD Qualified Code(s): J44.9 - Chronic obstructive pulmonary disease, unspecified Is this a current diagnosis for this admission?: Yes (5) Diabetes Qualifiers: Diabetes mellitus type: type 2 Diabetes mellitus complication status: with diabetic arthropathy Diabetes mellitus complication detail: with other arthropathy Diabetes mellitus exterminator termite insulin use: with exterminator termite use Qualified Code(s): E11.618 - Type 2 diabetes mellitus with other diabetic arthropathy; Z79.4 - correction (current) use of insulin; Z79.4 - correction ( current) use of insulin; 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 His vital signs been noted to be reasonably stable. Have reviewed labs. Have reviewed EKGs. At this time continue with supportive care. Further evaluation will be considered once patient is extubated and stabilized. 2D echo results reviewed. It shows normal LVEF with diastolic dysfunction. No significant valvular stenotic or regurgitant lesions noted. Patient current treatment plans reviewed. Currently on antibiotics for presumed pneumonia or other infection. Chest x-ray review and CT scan, predominantly showed atelectasis of the left base with shifting of the heart and mediastinum to the left side. There is possible overlying infection. Patient also on chronic anticoagulation. Prognosis remains guarded. Have repeated an EKG to look for any evolving EKG changes. Cardiac enzymes were not obtained this admission. - Time Time with patient: Greater than 35 minutes - CODE STATUS was discussed, patient remains full code. Surrogate decision-maker unchanged. Multiple medical problems were addressed. More than 50% of the time spent coordinating care, discussing management plans with involved caregivers. Management plans discussed with involved personnels. Medical decision making was of moderate to high complexity, patient's has multiple comorbidities. Medications reviewed and adjusted accordingly: Yes
[2017-05-21] MEDS: DIAZEPAM INJ 10 MG/2 ML DISP.SYRIN IV PRN (20:36)
[2017-05-21] MEDS ORDERED: FENTANYL CITRATE INJ/PF 100 MCG/2 ML AMPUL IV ONE (21:45)
[2017-05-21] MEDS: APIXABAN 5 MG TABLET PO SCH (22:02)
[2017-05-22] MEDS ORDERED: FENTANYL CITRATE INJ/PF 100 MCG/2 ML AMPUL ONE (00:33)
[2017-05-22] MEDS ORDERED: FENTANYL CITRATE INJ/PF 100 MCG/2 ML AMPUL IV ONE (01:00)
[2017-05-22] MEDS: IPRATROPIUM/ALBUTEROL 0.5-2.5 MG/3 ML AMPUL NEB SCH ×4 (02:21→20:48)
[2017-05-22] MEDS: PIPERACILLIN SODIUM/TAZOBACTAM 3.375 GM in NORMAL SALINE 100 ML IV SCH ×4 (02:30→20:19)
[2017-05-22] MEDS: MIDAZOLAM HCL 50 MG/100 ML RTUINJ IV PRN ×7 (02:30→23:31)
[2017-05-22] MEDS: NORMAL SALINE 1000 ML 1,000 ML IV PRN (04:13)
[2017-05-22 05:11] LABS: ARTERIAL BLOOD BASE EXCESS 3.7 mmol/L; ARTERIAL BLOOD H2CO3 1.27 mmol/L (1.05-1.35); ARTERIAL BLOOD HCO3 28.1 mmol/L (20-26); ARTERIAL BLOOD O2 SATURATION 92.2 % (94-98); ARTERIAL BLOOD PCO2 42.1 mmHg (35-45); ARTERIAL BLOOD PH 7.44 (7.35-7.45); ARTERIAL BLOOD PO2 60.9 mmHg (80-100); ARTERIAL BLOOD TOTAL CO2 29.4 mmol/L (23-27)
[2017-05-22 05:12] LABS: ARTERIAL BLOOD FIO2 35%
[2017-05-22 05:12] LABS: ABSOLUTE EOSINOPHILS # (AUTO) 0.1 10^3/uL (0.0-0.6); ABSOLUTE NEUT (AUTO) 5.5 10^3/uL (1.7-8.2); BASOPHILS % (AUTO) 0.4 % (0-2); EOSINOPHILS % (AUTO) 1.5 % (0-6); HEMATOCRIT 35.6 % (37.9-51.0); HEMOGLOBIN 11.9 g/dL (13.5-17.0); LYMPHOCYTES % (AUTO) 12.7 % (13-45); MEAN CORPUSCULAR HEMOGLOBIN 29.7 pg (27.0-33.4); MEAN CORPUSCULAR HGB CONC 33.3 g/dL (32.0-36.0); MEAN CORPUSCULAR VOLUME 89 fl (80-97); MONOCYTES % (AUTO) 13.5 % (3-13); PLATELET COUNT 126 10^3/uL (150-450); RED CELL DISTRIBUTION WIDTH 14.7 % (11.5-14.0); SEGMENTED NEUTROPHILS % (AUTO) 71.9 % (42-78); TOTAL CELLS COUNTED % (AUTO) 100 %; WHITE BLOOD COUNT 7.6 10^3/uL (4.0-10.5)
[2017-05-22 05:29] LABS: ALANINE AMINOTRANSFERASE 20 U/L (21-72); ALBUMIN 2.9 g/dL (3.5-5.0); ALKALINE PHOSPHATASE 50 U/L (38-126); ANION GAP 8 (5-19); ASPARTATE AMINO TRANSFERASE 8 U/L (17-59); BILIRUBIN,DIRECT 0.2 mg/dL (0.0-0.4); BILIRUBIN,TOTAL 0.5 mg/dL (0.2-1.3); BLOOD UREA NITROGEN 7 mg/dL (7-20); CARBON DIOXIDE 25 mmol/L (22-30); CHLORIDE 106 mmol/L (98-107); GLUCOSE 155 mg/dL (75-110); POTASSIUM 3.7 mmol/L (3.6-5.0); SODIUM 139.3 mmol/L (137-145); TOTAL PROTEIN 5.2 g/dL (6.3-8.2)
--- NOTE | 2017-05-22 09:17 | RADIOLOGY REPORT (SQ) ---
EXAM DESCRIPTION: CHEST SINGLE VIEW COMPLETED DATE/TIME: 05/22/2017 6:43 am REASON FOR STUDY: Respiratory failure COMPARISON: 05/21/2017. EXAM PARAMETERS: NUMBER OF VIEWS: One view. TECHNIQUE: Single frontal radiographic view of the chest acquired. RADIATION DOSE: NA LIMITATIONS: None. FINDINGS: LUNGS AND PLEURA: Basilar densities with left pleural effusion/thickening unchanged. MEDIASTINUM AND HILAR STRUCTURES: No masses. Contour normal. HEART AND VASCULAR STRUCTURES: Cardiomegaly unchanged. BONES: No acute findings. HARDWARE: Stable tracheostomy tube and nasogastric tube. OTHER: No other significant finding. IMPRESSION: NO CHANGE IN APPEARANCE OF THE CHEST. TECHNICAL DOCUMENTATION: JOB ID: [id number] [employer]- All Rights Reserved
[2017-05-22] MEDS: APIXABAN 5 MG TABLET PO SCH (09:22)
[2017-05-22] MEDS: METOPROLOL TARTRATE 50 MG TABLET PO SCH ×2 (09:22→21:54)
[2017-05-22] MEDS: FAMOTIDINE INJ/PF 20 MG/2 ML SDV IV SCH ×2 (09:22→21:55)
[2017-05-22] MEDS: BUDESONIDE/FORMOTEROL 160-4.5 MCG 60 PUFF/6 GM MDI IH SCH ×2 (09:24→21:56)
[2017-05-22] MEDS: FLUTICASONE NASAL SPRAY 50 MCG/SPRY 120 SPRAY/16 GM NASL SCH (09:24)
--- NOTE | 2017-05-22 10:17 | EKG REPORT ---
SEVERITY:- BORDERLINE ECG - SINUS RHYTHM BORDERLINE T ABNORMALITIES, INFERIOR LEADS : Confirmed by: Brad Piper 22-May-2017 10:17:10
[2017-05-22] MEDS: DIAZEPAM INJ 10 MG/2 ML DISP.SYRIN IV PRN ×2 (11:15→18:30)
[2017-05-22] MEDS: DIPHENHYDRAMINE HCL 50 MG/ML VIAL IV PRN (12:53)
[2017-05-22] MEDS: ACETAMINOPHEN 650 MG SUPP.RECT PR PRN ×2 (14:07→20:20)
[2017-05-22] MEDS ORDERED: RISPERIDONE 1 MG TAB.RAPDIS PO ONE (15:00)
--- NOTE | 2017-05-22 15:40 | PDOC PROGRESS REPORT ---
Subjective Progress Note for:: 05/22/17 Subjective:: Patient about the same and has made very little progress. There is no significant change in general condition. Patient remains endotracheally intubated through tracheostomy tube. He has been noted to have intermittent agitation especially during suctioning. Patient remains sedated. He is noted to have intermittent tachycardia. Patient is receiving beta-blockers. Patient remains intubated, sedated, patient however looks comfortable and in acute distress. Medications reviewed. Reason For Visit: ANGIOEDEMA, RESPIRATORY FAILURE Physical Exam Vital Signs: Temp Pulse Resp BP Pulse Ox 101.2 F H 109 H 18 133/82 H 97 05/22/17 14:00 05/22/17 14:00 05/22/17 14:00 05/22/17 14:00 05/22/17 14:00 Intake & Output 05/21/17 05/22/17 05/23/17 06:59 06:59 06:59 Intake Total 2763 2152 Output Total 5525 3680 660 Balance -2762 -1528 -660 Weight 135 kg 133.7 kg Exam: GENERAL: well-nourished and in no acute distress. Patient is intubated and sedated. Orientation cannot be checked HEAD: Atraumatic, normocephalic. EYES: Pupils equal round and reactive to light, extraocular movements could not be checked, sclera anicteric, conjunctiva are normal. ENT: TMs normal, nares patent, oropharynx clear without exudates. Moist mucous membranes. No oral ulcerations or bleeding gums noted NECK: supple without lymphadenopathy or JVD. Trachea is central. No cervical or axillary lymphadenopathy noted. Carotids are 2+ LUNGS: Breath sounds mostly clear to auscultation patient is noted to have bibasal crackles at the extreme bases CHEST: Palpation of the chest wall shows no significant chest wall tenderness or abnormalities. 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 ABDOMEN: Soft, no significant tenderness appreciated, normoactive bowel sounds. No guarding, no rebound. No rigidity noted . No masses appreciated. EXTREMITIES: Pedal pulses are 1-2+, no calf tenderness noted, 1+ pedal edema noted. No clubbing or cyanosis. NEUROLOGICAL: The patient cannot participate in the neurological exam but no facial asymmetry noted. Extremities slightly hypotonic PSYCH: This cannot be evaluated. Patient cannot participate. SKIN: No significant ecchymosis, rash, or signs of pruritus noted. MUSCULOSKELETAL EXAM: No significant joint swelling noted. Patient cannot participate in musculoskeletal exam Results Laboratory Results: 05/22/17 05:03 05/22/17 05:03 05/22/17 05/22/17 05/22/17 05:03 05:03 05:05 WBC 7.6 RBC 4.00 L Hgb 11.9 L Hct 35.6 L MCV 89 MCH 29.7 MCHC 33.3 RDW 14.7 H Plt Count 126 L Seg Neutrophils % 71.9 Lymphocytes % 12.7 L Monocytes % 13.5 H Eosinophils % 1.5 Basophils % 0.4 Absolute Neutrophils 5.5 Absolute Lymphocytes 1.0 Absolute Monocytes 1.0 Absolute Eosinophils 0.1 Absolute Basophils 0.0 Carbonic Acid 1.27 HCO3/H2CO3 Ratio 22:1 ABG pH 7.44 ABG pCO2 42.1 ABG pO2 60.9 L ABG HCO3 28.1 H ABG O2 Saturation 92.2 L ABG Base Excess 3.7 FiO2 35% Sodium 139.3 Potassium 3.7 Chloride 106 Carbon Dioxide 25 Anion Gap 8 BUN 7 Creatinine 0.63 Est GFR ( Amer) > 60 Est GFR (Non-Af Amer) > 60 Glucose 155 H Calcium 8.0 L Magnesium 1.8 Total Bilirubin 0.5 AST 8 L ALT 20 L Alkaline Phosphatase 50 Total Protein 5.2 L Albumin 2.9 L 05/20/17 02:11 Tracheal Aspirate Gram Stain - Final 05/20/17 02:11 Tracheal Aspirate Sputum Culture - Final Group B Beta Streptococcus Haemophilus Influenzae Normal Katya EKG Comments: Twelve-lead EKG shows sinus rhythm without acute ST-T wave changes. Rhythm strip shows no significant cardiac dysrhythmia except for mild intermittent sinus tachycardia. Impressions: Abdomen/Pelvis CT 05/20/17 00:00 IMPRESSION: Small 2 cm left renal mass with apparent rim calcification. If clinically warranted CT with IV contrast may be of value for further evaluation. Small bilateral adrenal nodules which appears stable when correlated with the previous study. Other findings as noted above Chest CT 05/20/17 00:00 IMPRESSION: Tiny bilateral pleural effusions are identified with associated predominately basilar airspace consolidation most consistent with atelectatic changes although I cannot exclude pneumonic consolidations. Tracheostomy tube and NG tube are identified in position. Other findings as noted above Chest X-Ray 05/22/17 06:00 IMPRESSION: NO CHANGE IN APPEARANCE OF THE CHEST. Assessment & Plan - Diagnosis (1) Acute airway obstruction Is this a current diagnosis for this admission?: Yes (2) Angioedema Qualifiers: Encounter type: initial encounter Qualified Code(s): T78.3XXA - Angioneurotic edema, initial encounter Is this a current diagnosis for this admission?: Yes (3) GRACY (obstructive sleep apnea) Is this a current diagnosis for this admission?: Yes (4) COPD (chronic obstructive pulmonary disease) Qualifiers: COPD type: unspecified COPD Qualified Code(s): J44.9 - Chronic obstructive pulmonary disease, unspecified Is this a current diagnosis for this admission?: Yes (5) Diabetes Qualifiers: Diabetes mellitus type: type 2 Diabetes mellitus complication status: with diabetic arthropathy Diabetes mellitus complication detail: with other arthropathy Diabetes mellitus intermediate insulin use: with terminologist use Qualified Code(s): E11.618 - Type 2 diabetes mellitus with other diabetic arthropathy; Z79.4 - custodial (current) use of insulin; Z79.4 - custodial ( current) use of insulin; Z79.4 - long term (current) use of insulin; Z79.4 - long term (current) use of insulin Is this a current diagnosis for this admission?: Yes (6) Hypertension Qualifiers: Hypertension type: essential hypertension Qualified Code(s): I10 - Essential (primary) hypertension Is this a current diagnosis for this admission?: Yes (7) Drug abuse Is this a current diagnosis for this admission?: Yes (8) Atelectasis, left Is this a current diagnosis for this admission?: Yes - Notes Notes: Patient general condition about the same being intubated through tracheostomy tube. At this point patient remains stable vital lines. Will continue to maintain vitals. Will continue to follow. No new changes made in patient's medications on management plans. Waiting for patient to be extubated. Chest x- ray results reviewed. It shows left basilar atelectasis and possible L pleural effusion. Twelve-lead EKG is reviewed. No acute ST-T wave changes noted. - Time Time with patient: 15-25 minutes - CODE STATUS was discussed, patient remains full code. Surrogate decision-maker unchanged. Multiple medical problems were addressed. More than 50% of the time spent coordinating care, discussing management plans with involved caregivers. Management plans discussed with involved personnels. Medical decision making was of moderate to high complexity , patient's has multiple comorbidities. Medications reviewed and adjusted accordingly: Yes
[2017-05-22] MEDS: FENTANYL CITRATE INJ/PF 100 MCG/2 ML AMPUL IV PRN ×2 (17:07→22:35)
[2017-05-22] MEDS: RISPERIDONE 1 MG TAB.RAPDIS PO SCH (17:37)
[2017-05-22] MEDS ORDERED: FUROSEMIDE INJ/PF 40 MG/4 ML SDV IV ONE (18:46)
--- NOTE | 2017-05-22 18:49 | PDOC PROGRESS REPORT ---
Subjective Progress Note for:: 05/22/17 Subjective:: Nursing states that pt becomes very agitated at times. Reason For Visit: ANGIOEDEMA, RESPIRATORY FAILURE Physical Exam Vital Signs: Temp Pulse Resp BP Pulse Ox 100.8 F H 109 H 26 H 125/81 98 05/22/17 18:02 05/22/17 14:00 05/22/17 18:02 05/22/17 18:02 05/22/17 18:02 Intake & Output 05/21/17 05/22/17 05/23/17 06:59 06:59 06:59 Intake Total 2763 2152 1133 Output Total 5525 3680 1205 Balance -2762 -1528 -72 Weight 135 kg 133.7 kg General appearance: PRESENT: no acute distress, well-developed, well-nourished Head exam: PRESENT: normocephalic Eye exam: PRESENT: other - eyes closed. Mouth exam: PRESENT: other - trach in place Neck exam: PRESENT: tracheostomy. ABSENT: carotid bruit, JVD, lymphadenopathy, thyromegaly Respiratory exam: PRESENT: clear to auscultation angelina. ABSENT: rales, rhonchi, wheezes Cardiovascular exam: PRESENT: RRR, tachycardia. ABSENT: diastolic murmur, rubs , systolic murmur Pulses: PRESENT: normal dorsalis pedis pul Vascular exam: PRESENT: normal capillary refill GI/Abdominal exam: PRESENT: normal bowel sounds, soft. ABSENT: distended, guarding, mass, organolmegaly, rebound, tenderness Rectal exam: PRESENT: deferred Extremities exam: ABSENT: calf tenderness, clubbing, pedal edema Neurological exam: PRESENT: other - sedated Focused psych exam: PRESENT: other - sedated Skin exam: PRESENT: dry, intact, warm Results Laboratory Results: 05/22/17 05:03 05/22/17 05:03 05/22/17 05/22/17 05/22/17 05:03 05:03 05:05 WBC 7.6 RBC 4.00 L Hgb 11.9 L Hct 35.6 L MCV 89 MCH 29.7 MCHC 33.3 RDW 14.7 H Plt Count 126 L Seg Neutrophils % 71.9 Lymphocytes % 12.7 L Monocytes % 13.5 H Eosinophils % 1.5 Basophils % 0.4 Absolute Neutrophils 5.5 Absolute Lymphocytes 1.0 Absolute Monocytes 1.0 Absolute Eosinophils 0.1 Absolute Basophils 0.0 Carbonic Acid 1.27 HCO3/H2CO3 Ratio 22:1 ABG pH 7.44 ABG pCO2 42.1 ABG pO2 60.9 L ABG HCO3 28.1 H ABG O2 Saturation 92.2 L ABG Base Excess 3.7 FiO2 35% Sodium 139.3 Potassium 3.7 Chloride 106 Carbon Dioxide 25 Anion Gap 8 BUN 7 Creatinine 0.63 Est GFR ( Amer) > 60 Est GFR (Non-Af Amer) > 60 Glucose 155 H Calcium 8.0 L Magnesium 1.8 Total Bilirubin 0.5 AST 8 L ALT 20 L Alkaline Phosphatase 50 Total Protein 5.2 L Albumin 2.9 L 05/20/17 02:11 Tracheal Aspirate Gram Stain - Final 05/20/17 02:11 Tracheal Aspirate Sputum Culture - Final Group B Beta Streptococcus Haemophilus Influenzae Normal Katya Impressions: Abdomen/Pelvis CT 05/20/17 00:00 IMPRESSION: Small 2 cm left renal mass with apparent rim calcification. If clinically warranted CT with IV contrast may be of value for further evaluation. Small bilateral adrenal nodules which appears stable when correlated with the previous study. Other findings as noted above Chest CT 05/20/17 00:00 IMPRESSION: Tiny bilateral pleural effusions are identified with associated predominately basilar airspace consolidation most consistent with atelectatic changes although I cannot exclude pneumonic consolidations. Tracheostomy tube and NG tube are identified in position. Other findings as noted above Chest X-Ray 05/22/17 06:00 IMPRESSION: NO CHANGE IN APPEARANCE OF THE CHEST. Assessment & Plan - Diagnosis (1) Acute airway obstruction Is this a current diagnosis for this admission?: Yes Plan: Secondary to angioedema status post trach placement: Trying to wean patient off of versed. Patient started on Risperdal. (2) Fever Is this a current diagnosis for this admission?: Yes Plan: Secondary to Haemophilus influenza: We will continue current antibiotics (3) Angioedema Qualifiers: Encounter type: initial encounter Qualified Code(s): T78.3XXA - Angioneurotic edema, initial encounter Is this a current diagnosis for this admission?: Yes Plan: Most likely secondary to cocaine abuse: Patient currently trached. Have on 2 occasions told patient to discontinue cocaine use. Patient on urine tox is positive for cocaine. [facility] was contacted in regards to nursing's request for steroids and antihistamines. ENT recommended no additional treatment required due to patient being trached. ENT reported that if patient has airway edema then steroids and antihistamines could be used. The current time patient is satting well on vent. (4) Congestive heart failure Qualifiers: Qualified Code(s): I50.32 - Chronic diastolic (congestive) heart failure Is this a current diagnosis for this admission?: Yes Plan: Additional Lasix today. (5) GRACY (obstructive sleep apnea) Is this a current diagnosis for this admission?: Yes Plan: Pt currently S/P Trach. (6) Cocaine abuse Is this a current diagnosis for this admission?: Yes Plan: Will continue encourage discontinuation of cocaine use. (7) Pulmonary embolism Qualifiers: Chronicity: unspecified Acute cor pulmonale presence: without acute cor pulmonale Is this a current diagnosis for this admission?: No Plan: History of PE: Will stop Eliquis (8) Tachycardia Is this a current diagnosis for this admission?: Yes Plan: In setting of fever: Improved. (9) Volume overload Is this a current diagnosis for this admission?: Yes Plan: Will give Lasix. (10) Hypertension secondary to drug Is this a current diagnosis for this admission?: Yes Plan: Resolved. (11) Agitation Is this a current diagnosis for this admission?: Yes Plan: Valium 10 mg TID PRN and Risperderal (12) DVT prophylaxis Is this a current diagnosis for this admission?: Yes Plan: Will discontinue Eliquis due to Endotrachal bleeding. SCDs - Time Time Spent with patient: 25-34 minutes
[2017-05-22] MEDS ORDERED: KETOROLAC TROMETHAMINE INJ/PF 30 MG/1 ML SDV IV ONE (21:47)
[2017-05-23] MEDS: IPRATROPIUM/ALBUTEROL 0.5-2.5 MG/3 ML AMPUL NEB SCH ×4 (01:52→20:36)
[2017-05-23] MEDS: MIDAZOLAM HCL 50 MG/100 ML RTUINJ IV PRN ×3 (02:16→09:49)
[2017-05-23] MEDS: PIPERACILLIN SODIUM/TAZOBACTAM 3.375 GM in NORMAL SALINE 100 ML IV SCH (02:16)
[2017-05-23] MEDS: FENTANYL CITRATE INJ/PF 100 MCG/2 ML AMPUL IV PRN (02:17)
[2017-05-23] MEDS: NORMAL SALINE 1000 ML 1,000 ML IV PRN ×2 (02:19→17:23)
[2017-05-23] MEDS: ACETAMINOPHEN 650 MG SUPP.RECT PR PRN ×3 (02:39→17:27)
[2017-05-23 04:37] LABS: ARTERIAL BLOOD BASE EXCESS -2.1 mmol/L; ARTERIAL BLOOD H2CO3 1.15 mmol/L (1.05-1.35); ARTERIAL BLOOD HCO3 22.6 mmol/L (20-26); ARTERIAL BLOOD O2 SATURATION 92.8 % (94-98); ARTERIAL BLOOD PCO2 38.3 mmHg (35-45); ARTERIAL BLOOD PH 7.39 (7.35-7.45); ARTERIAL BLOOD PO2 65.6 mmHg (80-100); ARTERIAL BLOOD TOTAL CO2 23.7 mmol/L (23-27)
[2017-05-23 04:38] LABS: ARTERIAL BLOOD FIO2 30%
[2017-05-23 05:39] LABS: HEMATOCRIT 33.4 % (37.9-51.0); MEAN CORPUSCULAR HEMOGLOBIN 29.7 pg (27.0-33.4); MEAN CORPUSCULAR VOLUME 90 fl (80-97); PLATELET COUNT 124 10^3/uL (150-450); RED BLOOD COUNT 3.71 10^6/uL (4.35-5.55); RED CELL DISTRIBUTION WIDTH 14.4 % (11.5-14.0)
[2017-05-23 05:51] LABS: ALANINE AMINOTRANSFERASE 23 U/L (21-72); ALBUMIN 2.4 g/dL (3.5-5.0); ALKALINE PHOSPHATASE 38 U/L (38-126); ANION GAP 7 (5-19); ASPARTATE AMINO TRANSFERASE 21 U/L (17-59); BILIRUBIN,DIRECT 0.4 mg/dL (0.0-0.4); BILIRUBIN,TOTAL 0.4 mg/dL (0.2-1.3); BLOOD UREA NITROGEN 10 mg/dL (7-20); CALCIUM 7.3 mg/dL (8.4-10.2); CARBON DIOXIDE 23 mmol/L (22-30); CHLORIDE 110 mmol/L (98-107); GLUCOSE 120 mg/dL (75-110); PHOSPHORUS 3.7 mg/dL (2.5-4.5); POTASSIUM 3.4 mmol/L (3.6-5.0); SODIUM 139.7 mmol/L (137-145); TOTAL PROTEIN 4.7 g/dL (6.3-8.2)
[2017-05-23 06:05] LABS: ABSOLUTE LYMPHOCYTES# (MANUAL) 0.3 10^3/uL (0.5-4.7); ABSOLUTE MONOCYTES # (MANUAL) 0.9 10^3/uL (0.1-1.4); ABSOLUTE NEUTROPHILS# (MANUAL) 3.9 10^3/uL (1.7-8.2); BAND NEUTROPHILS % (MANUAL) 4 % (3-5); BASOPHILS % (MANUAL) 1 % (0-2); EOSINOPHILS % (MANUAL) 0 % (0-6); LYMPHOCYTES % (MANUAL) 5 % (13-45); METAMYELOCYTES % (MANUAL) 2 % (0); MONOCYTES % (MANUAL) 17 % (3-13); SEGMENTED NEUTROPHILS % (MAN) 71 % (42-78); TOTAL CELLS COUNTED 100
[2017-05-23 06:08] LABS: ANISOCYTOSIS SLIGHT; OVALOCYTES 1+; POIKILOCYTOSIS SLIGHT; SCHISTOCYTES 1+; TOXIC GRANULATION 1+
--- NOTE | 2017-05-23 07:10 | RADIOLOGY REPORT (SQ) ---
EXAM DESCRIPTION: CHEST SINGLE VIEW CLINICAL HISTORY: LLL IN FILTRATE COMPARISON: 05/22/2017 FINDINGS: Single frontal view of the chest. Tracheostomy is unchanged. NG tube with tip below the diaphragm. Heart is not enlarged. Likely left pleural effusion with underlying consolidation or atelectasis. Heart is not enlarged. No pneumothorax. No acute osseous abnormalities. Upper abdominal soft tissues are unremarkable. IMPRESSION: 1. Persistent left basilar opacity and left pleural effusion. Stable appearance of the chest. Electronically signed by: Mikal Morse 05/23/2017 6:09 AM CRYPTOGRAPHIC VULNERABILITY ANALYST
[2017-05-23 07:16] LABS: PLATELET COMMENT ADEQUATE
[2017-05-23] MEDS ORDERED: VANCOMYCIN HCL 0 MG in DEXTROSE 5%-WATER 250 ML IV NR (08:15)
--- NOTE | 2017-05-23 08:42 | PDOC PROGRESS REPORT ---
Subjective Progress Note for:: 05/23/17 Subjective:: Nursing states that patient remains febrile. Overnight patient's heart rate went into the 150s however this morning patient's heart rate is better controlled. Reason For Visit: ANGIOEDEMA, RESPIRATORY FAILURE Physical Exam Vital Signs: Temp Pulse Resp BP Pulse Ox 101.3 F H 93 22 H 125/80 98 05/23/17 07:58 05/23/17 05:58 05/23/17 06:02 05/23/17 06:02 05/23/17 06:02 Intake & Output 05/22/17 05/23/17 05/24/17 06:59 06:59 06:59 Intake Total 2152 2259 Output Total 3680 2315 75 Balance -1528 -56 -75 Weight 133.7 kg 132.9 kg General appearance: PRESENT: other - Sedated, trach in place Head exam: PRESENT: atraumatic, normocephalic Eye exam: PRESENT: conjunctiva pink, EOMI Ear exam: PRESENT: normal external ear exam Mouth exam: PRESENT: moist, tongue midline Neck exam: PRESENT: tracheostomy Respiratory exam: PRESENT: other - Patient has fair air movement in upper lobes diminished at bases no crackles appreciated Cardiovascular exam: PRESENT: RRR. ABSENT: diastolic murmur, rubs, systolic murmur Pulses: PRESENT: normal dorsalis pedis pul Vascular exam: PRESENT: normal capillary refill GI/Abdominal exam: PRESENT: normal bowel sounds, soft. ABSENT: distended, guarding, mass, organolmegaly, rebound, tenderness Rectal exam: PRESENT: deferred Extremities exam: ABSENT: calf tenderness, clubbing, pedal edema Neurological exam: PRESENT: other - Sedated Psychiatric exam: PRESENT: other - Sedated Skin exam: PRESENT: dry, intact, warm. ABSENT: cyanosis, rash Results Laboratory Results: 05/23/17 05:29 05/23/17 05:29 05/23/17 05/23/17 05/23/17 04:26 05:29 05:29 WBC 5.0 RBC 3.71 L Hgb 11.0 L Hct 33.4 L MCV 90 MCH 29.7 MCHC 33.0 RDW 14.4 H Plt Count 124 L Seg Neutrophils % Not Reportable Lymphocytes % Not Reportable Monocytes % Not Reportable Eosinophils % Not Reportable Basophils % Not Reportable Absolute Neutrophils Not Reportable Absolute Lymphocytes Not Reportable Absolute Monocytes Not Reportable Absolute Eosinophils Not Reportable Absolute Basophils Not Reportable Carbonic Acid 1.15 HCO3/H2CO3 Ratio 19:1 ABG pH 7.39 ABG pCO2 38.3 ABG pO2 65.6 L ABG HCO3 22.6 ABG O2 Saturation 92.8 L ABG Base Excess -2.1 FiO2 30% Sodium 139.7 Potassium 3.4 L Chloride 110 H Carbon Dioxide 23 Anion Gap 7 BUN 10 Creatinine 0.72 Est GFR ( Amer) > 60 Est GFR (Non-Af Amer) > 60 Glucose 120 H Calcium 7.3 L Phosphorus 3.7 Magnesium 1.7 Total Bilirubin 0.4 AST 21 ALT 23 Alkaline Phosphatase 38 Total Protein 4.7 L Albumin 2.4 L 05/20/17 02:11 Tracheal Aspirate Gram Stain - Final 05/20/17 02:11 Tracheal Aspirate Sputum Culture - Final Group B Beta Streptococcus Haemophilus Influenzae Normal Katya Impressions: Abdomen/Pelvis CT 05/20/17 00:00 IMPRESSION: Small 2 cm left renal mass with apparent rim calcification. If clinically warranted CT with IV contrast may be of value for further evaluation. Small bilateral adrenal nodules which appears stable when correlated with the previous study. Other findings as noted above Chest CT 05/20/17 00:00 IMPRESSION: Tiny bilateral pleural effusions are identified with associated predominately basilar airspace consolidation most consistent with atelectatic changes although I cannot exclude pneumonic consolidations. Tracheostomy tube and NG tube are identified in position. Other findings as noted above Chest X-Ray 05/23/17 00:00 IMPRESSION: 1. Persistent left basilar opacity and left pleural effusion. Stable appearance of the chest. Assessment & Plan - Diagnosis (1) Sepsis Qualifiers: Sepsis type: sepsis due to unspecified organism Qualified Code(s): A41.9 - Sepsis, unspecified organism Is this a current diagnosis for this admission?: Yes Plan: Secondary to ventilation associated pneumonia: We will repeat blood cultures, sputum culture, discontinue Zosyn, add vancomycin, add meropenem, and add Levaquin. Will consider repeating CT of chest in a.m. Will have central line placed. Criteria temperature greater than 100.4, heart rate greater than 90, respiratory rate greater than 20, and suspected source of infection. (2) Ventilator associated pneumonia Is this a current diagnosis for this admission?: Yes Plan: Will discontinue Zosyn. Will place patient on vancomycin, meropenem, and Levaquin. Will repeat sputum culture. (3) Acute airway obstruction Is this a current diagnosis for this admission?: Yes Plan: Secondary to angioedema status post trach placement: Patient still requires Versed drip at 15. Will continue Risperdal (4) Fever Is this a current diagnosis for this admission?: Yes Plan: Secondary to ventilation associated pneumonia: Will discontinue Zosyn. Will add vancomycin, meropenem, and Levaquin. (5) Angioedema Qualifiers: Encounter type: initial encounter Qualified Code(s): T78.3XXA - Angioneurotic edema, initial encounter Is this a current diagnosis for this admission?: Yes Plan: Most likely secondary to cocaine abuse: Patient currently trached. Have on 2 occasions told patient to discontinue cocaine use. Patient on urine tox is positive for cocaine. [facility] was contacted in regards to nursing's request for steroids and antihistamines. ENT recommended no additional treatment required due to patient being trached. ENT reported that if patient has airway edema then steroids and antihistamines could be used. The current time patient is satting well on vent. (6) Congestive heart failure Qualifiers: Qualified Code(s): I50.32 - Chronic diastolic (congestive) heart failure Is this a current diagnosis for this admission?: Yes Plan: Patient currently euvolemic (7) GRACY (obstructive sleep apnea) Is this a current diagnosis for this admission?: Yes Plan: Pt currently S/P Trach. (8) Cocaine abuse Is this a current diagnosis for this admission?: Yes Plan: Will continue encourage discontinuation of cocaine use. (9) Pulmonary embolism Qualifiers: Chronicity: unspecified Acute cor pulmonale presence: without acute cor pulmonale Is this a current diagnosis for this admission?: No Plan: History of PE: Will stop Eliquis due to bleeding from trach. Will consider restarting on 05/25/2017. (10) Tachycardia Is this a current diagnosis for this admission?: Yes Plan: In setting of fever: Improved. (11) Volume overload Is this a current diagnosis for this admission?: Yes Plan: Pt euvolemic currently. (12) Agitation Is this a current diagnosis for this admission?: Yes Plan: Valium 10 mg TID PRN and Risperderal. Will continue to monitor. (13) Nutrition disorder Is this a current diagnosis for this admission?: Yes Plan: Will start tubefeeds. Will place on Glucera. (14) Drug abuse Is this a current diagnosis for this admission?: Yes Plan: Secondary to Cocaine dependence: Recommend supportive care. (15) DVT prophylaxis Is this a current diagnosis for this admission?: Yes Plan: Will discontinue Eliquis due to Endotrachal bleeding. SCDs - Time Time Spent with patient: 25-34 minutes
[2017-05-23] MEDS: FAMOTIDINE INJ/PF 20 MG/2 ML SDV IV SCH ×2 (09:33→21:16)
[2017-05-23] MEDS: METOPROLOL TARTRATE 50 MG TABLET PO SCH ×2 (09:34→21:15)
[2017-05-23] MEDS: RISPERIDONE 1 MG TAB.RAPDIS PO SCH ×2 (09:34→17:22)
[2017-05-23] MEDS: FLUTICASONE NASAL SPRAY 50 MCG/SPRY 120 SPRAY/16 GM NASL SCH (09:35)
[2017-05-23] MEDS: BUDESONIDE/FORMOTEROL 160-4.5 MCG 60 PUFF/6 GM MDI IH SCH ×2 (09:35→21:17)
[2017-05-23] MEDS: POTASSI CL 20 MEQ/50 ML RIDER 20 MEQ/50 ML RTUPB IV SCH ×2 (12:05→13:25)
[2017-05-23] MEDS: LEVOFLOXACIN 750 MG/D5W RTU 750 MG/150 ML RTUPB IV SCH (12:08)
[2017-05-23] MEDS ORDERED: MEROPENEM 1 GM in NORMAL SALINE 50 ML IV SCH (14:00)
--- NOTE | 2017-05-23 14:33 | PDOC PROGRESS REPORT ---
Subjective Progress Note for:: 05/23/17 Subjective:: Patient about the same and has made very little progress. There is no significant change in general condition. Patient remains endotracheally intubated through tracheostomy tube. He has been noted to have intermittent agitation especially during suctioning. Patient remains sedated. He is noted to have intermittent tachycardia. Patient is receiving beta-blockers. Patient remains intubated, sedated, patient however looks comfortable and in acute distress. Medications reviewed. Reason For Visit: ANGIOEDEMA, RESPIRATORY FAILURE Physical Exam Vital Signs: Temp Pulse Resp BP Pulse Ox 101.3 F H 110 H 24 H 125/80 98 05/23/17 12:00 05/23/17 14:15 05/23/17 14:15 05/23/17 06:02 05/23/17 14:15 Intake & Output 05/22/17 05/23/17 05/24/17 06:59 06:59 06:59 Intake Total 2152 2259 Output Total 3680 2315 295 Balance -1528 -56 -295 Weight 133.7 kg 132.9 kg Exam: GENERAL: well-nourished and in no acute distress. Patient is intubated and sedated. Orientation cannot be checked HEAD: Atraumatic, normocephalic. EYES: Pupils equal round and reactive to light, extraocular movements could not be checked, sclera anicteric, conjunctiva are normal. ENT: TMs normal, nares patent, oropharynx clear without exudates. Moist mucous membranes. No oral ulcerations or bleeding gums noted NECK: supple without lymphadenopathy or JVD. Trachea is central. No cervical or axillary lymphadenopathy noted. Carotids are 2+ LUNGS: Breath sounds mostly clear to auscultation patient is noted to have bibasal crackles at the extreme bases CHEST: Palpation of the chest wall shows no significant chest wall tenderness or abnormalities. 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 ABDOMEN: Soft, no significant tenderness appreciated, normoactive bowel sounds. No guarding, no rebound. No rigidity noted . No masses appreciated. EXTREMITIES: Pedal pulses are 1-2+, no calf tenderness noted, 1+ pedal edema noted. No clubbing or cyanosis. NEUROLOGICAL: The patient cannot participate in the neurological exam but no facial asymmetry noted. Extremities slightly hypotonic PSYCH: This cannot be evaluated. Patient cannot participate. SKIN: No significant ecchymosis, rash, or signs of pruritus noted. MUSCULOSKELETAL EXAM: No significant joint swelling noted. Patient cannot participate in musculoskeletal exam Results Laboratory Results: 05/23/17 05:29 05/23/17 05:29 05/23/17 05/23/17 05/23/17 04:26 05:29 05:29 WBC 5.0 RBC 3.71 L Hgb 11.0 L Hct 33.4 L MCV 90 MCH 29.7 MCHC 33.0 RDW 14.4 H Plt Count 124 L Seg Neutrophils % Not Reportable Lymphocytes % Not Reportable Monocytes % Not Reportable Eosinophils % Not Reportable Basophils % Not Reportable Absolute Neutrophils Not Reportable Absolute Lymphocytes Not Reportable Absolute Monocytes Not Reportable Absolute Eosinophils Not Reportable Absolute Basophils Not Reportable Carbonic Acid 1.15 HCO3/H2CO3 Ratio 19:1 ABG pH 7.39 ABG pCO2 38.3 ABG pO2 65.6 L ABG HCO3 22.6 ABG O2 Saturation 92.8 L ABG Base Excess -2.1 FiO2 30% Sodium 139.7 Potassium 3.4 L Chloride 110 H Carbon Dioxide 23 Anion Gap 7 BUN 10 Creatinine 0.72 Est GFR ( Amer) > 60 Est GFR (Non-Af Amer) > 60 Glucose 120 H Calcium 7.3 L Phosphorus 3.7 Magnesium 1.7 Total Bilirubin 0.4 AST 21 ALT 23 Alkaline Phosphatase 38 Total Protein 4.7 L Albumin 2.4 L 05/20/17 02:11 Tracheal Aspirate Gram Stain - Final 05/20/17 02:11 Tracheal Aspirate Sputum Culture - Final Group B Beta Streptococcus Haemophilus Influenzae Normal Katya EKG Comments: Telemetry strips reviewed showed sinus rhythm with intermittent mild sinus tachycardia. Impressions: Abdomen/Pelvis CT 05/20/17 00:00 IMPRESSION: Small 2 cm left renal mass with apparent rim calcification. If clinically warranted CT with IV contrast may be of value for further evaluation. Small bilateral adrenal nodules which appears stable when correlated with the previous study. Other findings as noted above Chest CT 05/20/17 00:00 IMPRESSION: Tiny bilateral pleural effusions are identified with associated predominately basilar airspace consolidation most consistent with atelectatic changes although I cannot exclude pneumonic consolidations. Tracheostomy tube and NG tube are identified in position. Other findings as noted above Chest X-Ray 05/23/17 00:00 IMPRESSION: 1. Persistent left basilar opacity and left pleural effusion. Stable appearance of the chest. Assessment & Plan - Diagnosis (1) Acute airway obstruction Is this a current diagnosis for this admission?: Yes (2) Angioedema Qualifiers: Encounter type: initial encounter Qualified Code(s): T78.3XXA - Angioneurotic edema, initial encounter Is this a current diagnosis for this admission?: Yes (3) GRACY (obstructive sleep apnea) Is this a current diagnosis for this admission?: Yes (4) COPD (chronic obstructive pulmonary disease) Qualifiers: COPD type: unspecified COPD Qualified Code(s): J44.9 - Chronic obstructive pulmonary disease, unspecified Is this a current diagnosis for this admission?: Yes (5) Diabetes Qualifiers: Diabetes mellitus type: type 2 Diabetes mellitus complication status: with diabetic arthropathy Diabetes mellitus complication detail: with other arthropathy Diabetes mellitus predatory animal exterminator insulin use: with predatory animal exterminator use Qualified Code(s): E11.618 - Type 2 diabetes mellitus with other diabetic arthropathy; Z79.4 - termite control service representative (current) use of insulin; Z79.4 - [facility] ( current) use of insulin; Z79.4 - termite control service representative (current) use of insulin; Z79.4 - termite control service representative (current) use of insulin Is this a current diagnosis for this admission?: Yes (6) Hypertension Qualifiers: Hypertension type: essential hypertension Qualified Code(s): I10 - Essential (primary) hypertension Is this a current diagnosis for this admission?: Yes (7) Drug abuse Is this a current diagnosis for this admission?: Yes (8) Atelectasis, left Is this a current diagnosis for this admission?: Yes - Notes Notes: Patient remains endotracheally intubated. He remains sedated. Cardiac gaston he has remained stable. Had opportunity to talk with patient's today. She was told that basically patient could be allergic to street drugs with. He is causing angioedema. Patient still noted to have some tongue swelling. However he seems to be getting gradually better as regards reduction of angioedema. His other conditions seem stable. He is noted to have atelectasis of the left base along with some pleural effusion. May consider pulmonary evaluation. Will continue to follow. - Time Time with patient: 15-25 minutes - CODE STATUS was discussed, patient remains full code. Surrogate decision-maker unchanged. Multiple medical problems were addressed. More than 50% of the time spent coordinating care, discussing management plans with involved caregivers. Management plans discussed with involved personnels. Medical decision making was of moderate to high complexity , patient's has multiple comorbidities. Medications reviewed and adjusted accordingly: Yes
--- NOTE | 2017-05-23 14:47 | RADIOLOGY REPORT (SQ) ---
EXAM DESCRIPTION: CHEST SINGLE VIEW COMPLETED DATE/TIME: 05/23/2017 2:37 pm REASON FOR STUDY: CENTRAL LINE PLACEMENT COMPARISON: 05/23/2017. EXAM PARAMETERS: NUMBER OF VIEWS: One view. TECHNIQUE: Single frontal radiographic view of the chest acquired. RADIATION DOSE: NA LIMITATIONS: None. FINDINGS: LUNGS AND PLEURA: The right lateral lung base not included on the image. No pneumothorax. Left basilar density and pleural effusion unchanged. MEDIASTINUM AND HILAR STRUCTURES: No masses. Contour normal. HEART AND VASCULAR STRUCTURES: Heart normal in size. Normal vasculature. BONES: No acute findings. HARDWARE: Central line on the right side with the tip at the level of the superior vena cava. Stable endotracheal tube. Unable to visualize the distal and of the nasogastric tube. OTHER: No other significant finding. IMPRESSION: CENTRAL LINE PLACEMENT DESCRIBED. NO PNEUMOTHORAX. OTHERWISE NO CHANGE IN APPEARANC E OF THE CHEST. TECHNICAL DOCUMENTATION: JOB ID: [id number] [employer]- All Rights Reserved
[2017-05-23] MEDS: MEROPENEM 1 GM in NORMAL SALINE 100 ML IV SCH ×2 (14:48→21:16)
[2017-05-23] MEDS: VANCOMYCIN HCL 1,500 MG in DEXTROSE 5%-WATER 250 ML IV SCH ×2 (14:49→21:15)
--- NOTE | 2017-05-23 15:33 | OPERATIVE REPORT E ---
Operative Report NAME: SHANAE TSANG : 1955 AGE: 61Y DATE OF SURGERY: 05/23/2017 ROOM: [facility] PREOPERATIVE DIAGNOSIS: A 61-YEAR-OLD MALE PATIENT IN ICU IN NEED OF CENTRAL VENOUS ACCESS FOR IV ACCESS. POSTOPERATIVE DIAGNOSIS: A 61-YEAR-OLD MALE PATIENT IN ICU IN NEED OF CENTRAL VENOUS ACCESS FOR IV ACCESS. OPERATION: Insertion of a central venous catheter through the right internal jugular vein with ultrasound guidance. SURGEON: REGINALDO ISAAC M.D. ANESTHESIA: Bedside 1% lidocaine. TISSUE REMOVED OR ALTERED: PROCEDURE: Patient was placed in the Trendelenburg position. Neck and upper chest wall cleaned and draped in sterile field. Initially, after cleaning and draping the area,right internal jugular vein was identified by ultrasound, and then with Seldinger technique, the vein was accessed. Then through a needle, a guidewire was inserted into the superior vena cava. Then the tract was dilated over the guidewire and a triple-lumen catheter inserted into the superior vena cava. Excellent venous flow. Flushed with heparin solution. Catheter was secured in place by sutures and then dressings were applied. The patient was stable throughout the operation. Tolerated procedure well. DICTATING PHYSICIAN: REGINALDO ISAAC M.D. [id number] PHY#: [id number] ID: [id number] JOB#: [id number] ACCT: [id number] cc:REGINALDO ISAAC M.D. > MTDD
[2017-05-24] MEDS: FENTANYL CITRATE INJ/PF 100 MCG/2 ML AMPUL IV PRN ×3 (01:15→20:52)
[2017-05-24] MEDS: IPRATROPIUM/ALBUTEROL 0.5-2.5 MG/3 ML AMPUL NEB SCH ×4 (01:32→20:32)
[2017-05-24] MEDS: VANCOMYCIN HCL 1,500 MG in DEXTROSE 5%-WATER 250 ML IV SCH ×4 (02:47→20:27)
[2017-05-24] MEDS: MEROPENEM 1 GM in NORMAL SALINE 100 ML IV SCH ×3 (05:03→21:58)
[2017-05-24 05:44] LABS: HEMATOCRIT 33.2 % (37.9-51.0); HEMOGLOBIN 10.9 g/dL (13.5-17.0); MEAN CORPUSCULAR HEMOGLOBIN 29.5 pg (27.0-33.4); MEAN CORPUSCULAR HGB CONC 32.9 g/dL (32.0-36.0); MEAN CORPUSCULAR VOLUME 90 fl (80-97); PLATELET COUNT 143 10^3/uL (150-450); RED BLOOD COUNT 3.71 10^6/uL (4.35-5.55); RED CELL DISTRIBUTION WIDTH 14.6 % (11.5-14.0); WHITE BLOOD COUNT 4.4 10^3/uL (4.0-10.5)
[2017-05-24 05:47] LABS: ARTERIAL BLOOD H2CO3 1.28 mmol/L (1.05-1.35); ARTERIAL BLOOD HCO3 26.8 mmol/L (20-26); ARTERIAL BLOOD O2 SATURATION 93.5 % (94-98); ARTERIAL BLOOD PCO2 42.6 mmHg (35-45); ARTERIAL BLOOD PH 7.42 (7.35-7.45); ARTERIAL BLOOD PO2 66.7 mmHg (80-100); ARTERIAL BLOOD TOTAL CO2 28.1 mmol/L (23-27)
[2017-05-24 05:52] LABS: ARTERIAL BLOOD FIO2 35%
[2017-05-24 06:08] LABS: ABSOLUTE LYMPHOCYTES# (MANUAL) 0.7 10^3/uL (0.5-4.7); ABSOLUTE MONOCYTES # (MANUAL) 1.1 10^3/uL (0.1-1.4); ABSOLUTE NEUTROPHILS# (MANUAL) 2.5 10^3/uL (1.7-8.2); BASOPHILS % (MANUAL) 0 % (0-2); EOSINOPHILS % (MANUAL) 2 % (0-6); LYMPHOCYTES % (MANUAL) 16 % (13-45); SEGMENTED NEUTROPHILS % (MAN) 57 % (42-78); TOTAL CELLS COUNTED 100
[2017-05-24 06:11] LABS: MONOCYTES % (MANUAL) 25 % (3-13)
[2017-05-24 06:17] LABS: ALANINE AMINOTRANSFERASE 25 U/L (21-72); ALBUMIN 2.6 g/dL (3.5-5.0); ALKALINE PHOSPHATASE 45 U/L (38-126); ASPARTATE AMINO TRANSFERASE 25 U/L (17-59); BILIRUBIN,DIRECT 0.2 mg/dL (0.0-0.4); BILIRUBIN,TOTAL 0.2 mg/dL (0.2-1.3); BLOOD UREA NITROGEN 9 mg/dL (7-20); CALCIUM 8.2 mg/dL (8.4-10.2); CARBON DIOXIDE 30 mmol/L (22-30); CHLORIDE 103 mmol/L (98-107); GLUCOSE 156 mg/dL (75-110); POTASSIUM 3.8 mmol/L (3.6-5.0); SODIUM 136.8 mmol/L (137-145); TOTAL PROTEIN 5.1 g/dL (6.3-8.2)
[2017-05-24 06:26] LABS: ANION GAP 4 (5-19)
[2017-05-24 06:27] LABS: PLATELET COMMENT ADEQUATE
[2017-05-24] MEDS ORDERED: RISPERIDONE 1 MG TAB.RAPDIS PO SCH (08:27)
--- NOTE | 2017-05-24 08:28 | PDOC PROGRESS REPORT ---
Subjective Progress Note for:: 05/24/17 Subjective:: Nursing states that he is resting well. Nursing states that pt had one fever overnight. Reason For Visit: ANGIOEDEMA, RESPIRATORY FAILURE Physical Exam Vital Signs: Temp Pulse Resp BP Pulse Ox 100.0 F 97 19 145/90 H 98 05/24/17 07:32 05/24/17 05:35 05/24/17 07:32 05/24/17 07:32 05/24/17 07:32 Intake & Output 05/23/17 05/24/17 05/25/17 06:59 06:59 06:59 Intake Total 2259 2748 Output Total 2315 1740 425 Balance -56 1008 -425 Weight 132.9 kg 133.6 kg General appearance: PRESENT: well-developed, well-nourished, other Eye exam: PRESENT: conjunctiva pink Ear exam: PRESENT: normal external ear exam Mouth exam: PRESENT: other - trach in place Neck exam: PRESENT: tracheostomy Respiratory exam: PRESENT: other - Trached on vent Cardiovascular exam: PRESENT: RRR. ABSENT: diastolic murmur, rubs, systolic murmur Pulses: PRESENT: normal dorsalis pedis pul Vascular exam: PRESENT: normal capillary refill GI/Abdominal exam: PRESENT: normal bowel sounds, soft. ABSENT: distended, guarding, mass, organolmegaly, rebound, tenderness Rectal exam: PRESENT: deferred Extremities exam: PRESENT: full ROM. ABSENT: calf tenderness, clubbing, pedal edema Neurological exam: PRESENT: other - Will open eyes when stimulated. Psychiatric exam: PRESENT: other - relaxed Skin exam: PRESENT: dry, intact, warm. ABSENT: cyanosis, rash Results Laboratory Results: 05/24/17 05:20 05/24/17 05:20 05/24/17 05/24/17 05/24/17 05:20 05:20 05:20 WBC 4.4 RBC 3.71 L Hgb 10.9 L Hct 33.2 L MCV 90 MCH 29.5 MCHC 32.9 RDW 14.6 H Plt Count 143 L Seg Neutrophils % Not Reportable Lymphocytes % Not Reportable Monocytes % Not Reportable Eosinophils % Not Reportable Basophils % Not Reportable Absolute Neutrophils Not Reportable Absolute Lymphocytes Not Reportable Absolute Monocytes Not Reportable Absolute Eosinophils Not Reportable Absolute Basophils Not Reportable Carbonic Acid 1.28 HCO3/H2CO3 Ratio 20:1 ABG pH 7.42 ABG pCO2 42.6 ABG pO2 66.7 L ABG HCO3 26.8 H ABG O2 Saturation 93.5 L ABG Base Excess 2.0 FiO2 35% Sodium 136.8 L Potassium 3.8 Chloride 103 Carbon Dioxide 30 Anion Gap 4 L BUN 9 Creatinine 0.60 Est GFR ( Amer) > 60 Est GFR (Non-Af Amer) > 60 Glucose 156 H Calcium 8.2 L Magnesium 1.9 Total Bilirubin 0.2 AST 25 ALT 25 Alkaline Phosphatase 45 Total Protein 5.1 L Albumin 2.6 L Impressions: Abdomen/Pelvis CT 05/20/17 00:00 IMPRESSION: Small 2 cm left renal mass with apparent rim calcification. If clinically warranted CT with IV contrast may be of value for further evaluation. Small bilateral adrenal nodules which appears stable when correlated with the previous study. Other findings as noted above Chest CT 05/20/17 00:00 IMPRESSION: Tiny bilateral pleural effusions are identified with associated predominately basilar airspace consolidation most consistent with atelectatic changes although I cannot exclude pneumonic consolidations. Tracheostomy tube and NG tube are identified in position. Other findings as noted above Assessment & Plan - Diagnosis (1) Sepsis Qualifiers: Sepsis type: sepsis due to unspecified organism Qualified Code(s): A41.9 - Sepsis, unspecified organism Is this a current diagnosis for this admission?: Yes Plan: Secondary to ventilation associated pneumonia: We will continue patient on vancomycin, meropenem, and Levaquin. Patient's fever trend has demonstrated less febrile episodes. Will continue to monitor patient. Criteria temperature greater than 100.4, heart rate greater than 90, respiratory rate greater than 20, and suspected source of infection. (2) Ventilator associated pneumonia Is this a current diagnosis for this admission?: Yes Plan: Will continue Vancomycin, Meropenem, and Levaquin. (3) Acute airway obstruction Is this a current diagnosis for this admission?: Yes Plan: Secondary to angioedema status post trach placement: Pt currently off versed. Will reduce dose of Risperdal. (4) Fever Is this a current diagnosis for this admission?: Yes Plan: Secondary to ventilation associated pneumonia: Will continue vancomycin, meropenem, and Levaquin. (5) Angioedema Qualifiers: Encounter type: initial encounter Qualified Code(s): T78.3XXA - Angioneurotic edema, initial encounter Is this a current diagnosis for this admission?: Yes Plan: Most likely secondary to cocaine abuse: Patient currently trached. Have on 2 occasions told patient to discontinue cocaine use. Patient on urine tox is positive for cocaine. [facility] was contacted in regards to nursing's request for steroids and antihistamines. ENT recommended no additional treatment required due to patient being trached. ENT reported that if patient has airway edema then steroids and antihistamines could be used. The current time patient is satting well on vent. (6) Congestive heart failure Qualifiers: Qualified Code(s): I50.32 - Chronic diastolic (congestive) heart failure Is this a current diagnosis for this admission?: Yes Plan: Patient currently euvolemic (7) GRACY (obstructive sleep apnea) Is this a current diagnosis for this admission?: Yes Plan: Pt currently S/P Trach. (8) Cocaine abuse Is this a current diagnosis for this admission?: Yes Plan: Will continue encourage discontinuation of cocaine use. (9) Pulmonary embolism Qualifiers: Chronicity: unspecified Acute cor pulmonale presence: without acute cor pulmonale Is this a current diagnosis for this admission?: No Plan: History of PE: Stopped Eliquis due to bleeding from trach. Will consider restarting on 05/25/2017. (10) Tachycardia Is this a current diagnosis for this admission?: Yes Plan: In setting of fever: Improved. (11) Volume overload Is this a current diagnosis for this admission?: Yes Plan: Pt euvolemic currently. (12) Agitation Is this a current diagnosis for this admission?: Yes Plan: Will reduce dose of Risperdal to 0.5mg PO BID. we will continue Valium as needed. Will discontinue Versed order. (13) Nutrition disorder Is this a current diagnosis for this admission?: Yes Plan: We will continue tube feeds. (14) Drug abuse Is this a current diagnosis for this admission?: Yes Plan: Secondary to Cocaine dependence: Recommend supportive care. (15) DVT prophylaxis Is this a current diagnosis for this admission?: Yes Plan: Will discontinue Eliquis due to Endotrachal bleeding. SCDs - Time Time Spent with patient: 25-34 minutes Anticipated discharge: Other - Is likely will require LTAC
--- NOTE | 2017-05-24 08:45 | RADIOLOGY REPORT (SQ) ---
EXAM DESCRIPTION: CHEST SINGLE VIEW COMPLETED DATE/TIME: 05/24/2017 7:21 am REASON FOR STUDY: resp failure COMPARISON: 05/23/2017. EXAM PARAMETERS: NUMBER OF VIEWS: One view. TECHNIQUE: Single frontal radiographic view of the chest acquired. RADIATION DOSE: NA LIMITATIONS: None. FINDINGS: LUNGS AND PLEURA: Left basilar density and scattered linear markings in the right base, un changed. Probable pleural effusions. MEDIASTINUM AND HILAR STRUCTURES: No masses. Contour normal. HEART AND VASCULAR STRUCTURES: Heart normal in size. Normal vasculature. BONES: No acute findings. HARDWARE: Stable tracheostomy tube, nasogastric tube, and central line. OTHER: No other significant finding. IMPRESSION: NO CHANGE IN APPEARANCE OF THE CHEST. TECHNICAL DOCUMENTATION: JOB ID: [id number] [employer]- All Rights Reserved
[2017-05-24] MEDS: FLUTICASONE NASAL SPRAY 50 MCG/SPRY 120 SPRAY/16 GM NASL SCH (09:01)
[2017-05-24] MEDS: BUDESONIDE/FORMOTEROL 160-4.5 MCG 60 PUFF/6 GM MDI IH SCH ×2 (09:01→21:59)
[2017-05-24] MEDS: METOPROLOL TARTRATE 50 MG TABLET PO SCH ×2 (09:37→21:58)
[2017-05-24] MEDS: FAMOTIDINE INJ/PF 20 MG/2 ML SDV IV SCH ×2 (09:37→21:58)
[2017-05-24] MEDS: RISPERIDONE 0.5 MG TAB.RAPDIS PO SCH ×2 (10:01→21:58)
[2017-05-24] MEDS: LEVOFLOXACIN 750 MG/D5W RTU 750 MG/150 ML RTUPB IV SCH (10:03)
--- NOTE | 2017-05-24 14:09 | PDOC PROGRESS REPORT ---
Subjective Progress Note for:: 05/24/17 Subjective:: Awake lethargic Reason For Visit: ANGIOEDEMA, RESPIRATORY FAILURE Physical Exam Vital Signs: Temp Pulse Resp BP Pulse Ox 99.9 F 100 20 137/88 H 97 05/24/17 10:33 05/24/17 08:43 05/24/17 11:00 05/24/17 10:33 05/24/17 11:00 Intake & Output 05/23/17 05/24/17 05/25/17 06:59 06:59 06:59 Intake Total 2259 2748 Output Total 2315 1740 1475 Balance -56 1008 -1475 Weight 132.9 kg 133.6 kg General appearance: PRESENT: no acute distress, cooperative, disheveled, morbidly obese, well-developed. ABSENT: mild distress, obese, severe distress Head exam: PRESENT: atraumatic, normocephalic Eye exam: PRESENT: conjunctiva pale, EOMI. ABSENT: conjunctival injection, conjunctiva pink, nystagmus, periorbital swelling, scleral icterus Mouth exam: PRESENT: dry mucosa, neck supple, tongue midline Neck exam: PRESENT: tracheostomy. ABSENT: carotid bruit, JVD, lymphadenopathy, thyromegaly, tracheal deviation Respiratory exam: PRESENT: decreased breath sounds, prolonged expiratory phas, rhonchi, symmetrical, unlabored. ABSENT: rales, retraction, stridor, tachypnea Cardiovascular exam: PRESENT: RRR, +S1, +S2 Pulses: PRESENT: normal radial pulses GI/Abdominal exam: PRESENT: diminished bowel sounds, soft Gentrourinary exam: PRESENT: indwelling catheter Extremities exam: PRESENT: full ROM. ABSENT: clubbing Musculoskeletal exam: PRESENT: full ROM. ABSENT: deformity, dislocation Neurological exam: PRESENT: alert, awake Skin exam: PRESENT: dry, warm Results Laboratory Results: 05/24/17 05:20 05/24/17 05:20 05/24/17 05/24/17 05/24/17 05:20 05:20 05:20 WBC 4.4 RBC 3.71 L Hgb 10.9 L Hct 33.2 L MCV 90 MCH 29.5 MCHC 32.9 RDW 14.6 H Plt Count 143 L Seg Neutrophils % Not Reportable Lymphocytes % Not Reportable Monocytes % Not Reportable Eosinophils % Not Reportable Basophils % Not Reportable Absolute Neutrophils Not Reportable Absolute Lymphocytes Not Reportable Absolute Monocytes Not Reportable Absolute Eosinophils Not Reportable Absolute Basophils Not Reportable Carbonic Acid 1.28 HCO3/H2CO3 Ratio 20:1 ABG pH 7.42 ABG pCO2 42.6 ABG pO2 66.7 L ABG HCO3 26.8 H ABG O2 Saturation 93.5 L ABG Base Excess 2.0 FiO2 35% Sodium 136.8 L Potassium 3.8 Chloride 103 Carbon Dioxide 30 Anion Gap 4 L BUN 9 Creatinine 0.60 Est GFR ( Amer) > 60 Est GFR (Non-Af Amer) > 60 Glucose 156 H Calcium 8.2 L Magnesium 1.9 Total Bilirubin 0.2 AST 25 ALT 25 Alkaline Phosphatase 45 Total Protein 5.1 L Albumin 2.6 L Impressions: Abdomen/Pelvis CT 05/20/17 00:00 IMPRESSION: Small 2 cm left renal mass with apparent rim calcification. If clinically warranted CT with IV contrast may be of value for further evaluation. Small bilateral adrenal nodules which appears stable when correlated with the previous study. Other findings as noted above Chest CT 05/20/17 00:00 IMPRESSION: Tiny bilateral pleural effusions are identified with associated predominately basilar airspace consolidation most consistent with atelectatic changes although I cannot exclude pneumonic consolidations. Tracheostomy tube and NG tube are identified in position. Other findings as noted above Chest X-Ray 05/24/17 06:00 IMPRESSION: NO CHANGE IN APPEARANCE OF THE CHEST. Assessment & Plan - Diagnosis (1) Obesity hypoventilation syndrome Is this a current diagnosis for this admission?: Yes Plan: The above patient has failed BiPAP. This patient would benefit from invasive mechanical ventilation via the trilogy pressure support/PEEP . The trilogy is able to provide a target tidal volume to maintain a patent airway as well as an oral backup rate.This machine will help improve PaCO2 levels. Patient has demonstrated this apneas and hypopneas secondary to his obesity. The severity of the patient's condition will lead to future hospitalizations and readmissions as well as life-threatening situations without the use of this device trilogy home vent needed for hypercapnic respiratory failure. [facility] or [facility] to follow for trilogy set up. (2) Angioedema Qualifiers: Encounter type: subsequent encounter Qualified Code(s): T78.3XXD - Angioneurotic edema, subsequent encounter Is this a current diagnosis for this admission?: Yes Plan: Improving tongue has decreased in size but is still obstructing oral airway (3) Witnessed episode of apnea Is this a current diagnosis for this admission?: Yes Plan: Per spouse and staff - Time Total Critical Time (Minutes): 45
--- NOTE | 2017-05-24 14:15 | PDOC CONSULTATION ---
Consultation Consult Date: 05/19/17 Attending physician:: JASMIN GUERRERO Consult reason:: Acute on chronic respiratory failure;Angioedema History of Present Illness Admission Date/PCP: 05/19/17 04:18 History of Present Illness: All information from chart as patient has been and is on mechanical ventilation and sedated:SHANAE TSANG JR is a 61 year old male with a history of recurrent angioedema who was brought to the ER by his with complaints of swelling of the airway. Patient has had recurrent hospitalizations for angioedema resulting in intubation. This time intubation was unsuccessful. Surgery was called for emergent tracheostomy. Patient is currently in the ICU that is post tracheostomy. Patient is ventilated and sedated. This history was reviewed and confirmed. Previous hospitalization records were reviewed. Family members not available to add this history. Nurses claim patient's vital signs has been stable. He has been noted to be intermittently tachycardic. Past Medical History Cardiac Medical History: Reports: Atrial Fibrillation, Congestive Heart Failure , Hyperlipidema, Hypertension, Pulmonary Embolism Denies: Coronary Artery Disease, Myocardial Infarction, Peripheral Vascular Disease, Heart Murmur Pulmonary Medical History: Reports: Asthma, Chronic Obstructive Pulmonary Disease (COPD), Pneumonia - 7 years ago, Sleep Apnea - hx only, not a current problem, no CPAP, Tuberculosis Denies: Bronchitis, Respiratory Failure Neurological Medical History: Denies: Migraine Endocrine Medical History: Reports: Diabetes Mellitus Type 2 Denies: Hyperthyroidism, Hypothyroidism Renal/ Medical History: Denies: End Stage Renal Disease Malignancy Medical History: Denies: Lung Cancer GI Medical History: Reports: Gastroesophageal Reflux Disease, Hepatitis - Hep C Denies: Cirrhosis, Crohn's Disease, Hiatal Hernia, Ulcerative Colitis Musculoskeltal Medical History: Reports: Arthritis Denies: Fibromyalgia Skin Medical History: Denies: Psoriasis Psychiatric Medical History: Denies: Bipolar Disorder, Dementia, Depression, Post Traumatic Stress Disorder Traumatic Medical History: Denies: Traumatic Brain Injury Hematology: Denies: Sickle Cell Disease, Bleeding Tendencies Past Surgical History Past Surgical History: Reports: Appendectomy, Herniorrhaphy, Orthopedic Surgery - Spinal fusion. Meniscus repair., Other - Tracheostomy on 05/19/2017 Denies: Cholecystectomy, Colostomy, Coronary Artery Bypass Graft, Gastric Bypass Surgery, Pacemaker, Tonsillectomy Social History Smoking Status: Unknown if Ever Smoked Passive smoke exposure as: Both Frequency of Alcohol Use: None Hx Recreational Drug Use: No Drugs: Cocaine - Patient admitted to cocaine use when confronted Hx Prescription Drug Abuse: No Do you have pets?: No Have you had any respiratory illnesses as a child?: No Have you travelled outside of [place] in the past 12 months?: No - Advance Directive Resuscitation Status: Full Code Family History Family History: Arthritis, CAD - Mother and brother, CVA, DM, Hyperlipidemia, Hypertension, Malignancy Parental Family History Reviewed: Yes Children Family History Reviewed: Yes Sibling(s) Family History Reviewed.: Yes Medication/Allergy Home Medications: Albuterol Sulfate [Proair HFA Inhalation Aerosol 8.5 gm MDI] 2 puff IH Q6HP PRN 05/19/17 Amitriptyline HCl [Elavil 25 mg Tablet] 75 mg PO QHS 05/19/17 Amlodipine Besylate [Norvasc 10 mg Tablet] 10 mg PO DAILY 05/19/17 Apixaban [Eliquis 5 mg Tablet] 5 mg PO Q12 05/19/17 Ascorbic Acid [Vitamin C 500 mg Tablet] 500 mg PO DAILY 05/19/17 Aspirin [Ecotrin 81 mg EC Tablet] 81 mg PO DAILY 05/19/17 Budesonide/Formoterol Fumarate [Symbicort 160-4.5 Mcg Inhaler] 2 puff IH Q12 10/27 Dextrose [Glucose] 1 tab PO QIDP PRN 05/19/17 Epinephrine [Epipen] 3 ml IM ONCEP PRN 05/19/17 Ferrous Sulfate 324 mg PO DAILY 05/19/17 Fluticasone Propionate [Flonase Nasal [place] 50 Mcg/[place] 16 gm] 1 spray NASL DAILY 05/19/17 Furosemide [Lasix 20 mg Tablet] 20 mg PO DAILY 05/19/17 Gabapentin [Neurontin 100 mg Capsule] 100 mg PO Q8 05/19/17 Hydrochlorothiazide [Hydrodiuril 25 mg Tablet] 25 mg PO DAILY 05/19/17 Insulin Aspart [Novolog Flexpen] 18 units SQ [id number] 05/19/17 Insulin Aspart [Novolog Flexpen] 25 units SQ BIDLS 05/19/17 Insulin Glargine,Hum.rec.anlog [Lantus Solostar] 60 unit SQ QHS 05/19/17 Isosorbide Mononitrate [Isosorbide Mononitrate ER] 30 mg PO QAM 05/19/17 Metformin HCl [Glucophage] 1,000 mg PO BIDACBS 05/19/17 Metoprolol Tartrate [Lopressor 50 mg Tablet] 25 mg PO Q12 05/19/17 Omeprazole 40 mg PO DAILY 05/19/17 Pravastatin Sodium [Pravachol] 20 mg PO QHS 05/19/17 Ranitidine HCl [Zantac 150 mg Tablet] 150 mg PO QHS 05/19/17 Sildenafil Citrate [Viagra] 100 mg PO DAILYP PRN 05/19/17 Terazosin HCl [Hytrin] 4 mg PO QHS 05/19/17 Tiotropium [place] [Spiriva Handihaler 5 Cap/Kit (18 Mcg/Cap)] 1 puff IH DAILY 05/19/17 Tramadol HCl [Ultram 50 mg Tablet] 50 mg PO Q6 05/19/17 Allergies/Adverse Reactions: codeine [Codeine] Allergy (Severe, Verified 04/21/17 09:33) Facial swelling hydrocodone bitartrate [From Vicodin] Allergy (Severe, Verified 04/21/17 09:33) Anaphylaxis lisinopril Allergy (Severe, Verified 04/21/17 09:33) Anaphylaxis hydromorphone [From Dilaudid] Allergy (Verified 04/21/17 09:33) Difficulty breathing Iodine and Iodide Containing Produc Allergy (Verified 04/21/17 09:33) Anaphylaxis morphine Allergy (Verified 04/21/17 09:33) Itching oxycodone Allergy (Verified 04/21/17 09:33) Swelling of tongue shellfish derived Allergy (Verified 04/21/17 09:33) Anaphylaxis Review of Systems ROS unobtainable: Due to endotracheal tube, Due to mental status Physical Exam Vital Signs: Temp Pulse Resp BP Pulse Ox 97.5 F 73 16 80/63 L 99 05/19/17 08:00 05/19/17 07:59 05/19/17 07:59 05/19/17 07:59 05/19/17 07:59 Intake & Output 05/18/17 05/19/17 05/20/17 06:59 06:59 06:59 Intake Total 0 Output Total 100 Balance 0 -100 General appearance: PRESENT: no acute distress, disheveled, morbidly obese. ABSENT: cooperative Head exam: PRESENT: atraumatic, normocephalic Eye exam: PRESENT: conjunctiva pale. ABSENT: conjunctival injection, conjunctiva pink, EOMI, nystagmus Mouth exam: PRESENT: dry mucosa, neck supple, tongue midline. ABSENT: laceration, moist Neck exam: PRESENT: tracheostomy. ABSENT: carotid bruit, JVD, lymphadenopathy, thyromegaly, tracheal deviation Respiratory exam: PRESENT: decreased breath sounds, rhonchi, symmetrical, unlabored. ABSENT: rales Cardiovascular exam: PRESENT: RRR, +S1, +S2 Pulses: PRESENT: normal radial pulses GI/Abdominal exam: PRESENT: diminished bowel sounds, soft Gentrourinary exam: PRESENT: indwelling catheter Extremities exam: ABSENT: clubbing, joint swelling Musculoskeletal exam: ABSENT: deformity, dislocation Neurological exam: ABSENT: alert, awake, oriented to person Skin exam: PRESENT: dry, warm Results Laboratory Results: 05/19/17 06:25 05/19/17 06:25 05/19/17 05/19/17 05/19/17 06:25 06:25 06:25 WBC 11.5 H RBC 4.06 L Hgb 11.8 L Hct 36.8 L MCV 91 MCH 29.1 MCHC 32.2 RDW 14.7 H Plt Count 138 L Seg Neutrophils % 82.5 H Lymphocytes % 10.3 L Monocytes % 6.4 Eosinophils % 0.4 Basophils % 0.4 Absolute Neutrophils 9.5 H Absolute Lymphocytes 1.2 Absolute Monocytes 0.7 Absolute Eosinophils 0.1 Absolute Basophils 0.0 Carbonic Acid 2.89 H HCO3/H2CO3 Ratio 11:1 ABG pH 7.15 L* ABG pCO2 96.1 H* ABG pO2 43.4 L ABG HCO3 32.6 H ABG O2 Saturation 62.9 L ABG Base Excess 1.2 FiO2 60% Sodium 136.7 L Potassium 5.9 H Chloride 101 Carbon Dioxide 32 H Anion Gap 4 L BUN 11 Creatinine 0.84 Est GFR ( Amer) > 60 Est GFR (Non-Af Amer) > 60 Glucose 255 H Calcium 7.7 L Magnesium 1.7 Total Bilirubin 0.1 L AST 23 ALT 26 Alkaline Phosphatase 65 Total Protein 5.8 L Albumin 3.2 L 05/19/17 09:00 WBC RBC Hgb Hct MCV MCH MCHC RDW Plt Count Seg Neutrophils % Lymphocytes % Monocytes % Eosinophils % Basophils % Absolute Neutrophils Absolute Lymphocytes Absolute Monocytes Absolute Eosinophils Absolute Basophils Carbonic Acid 1.51 H HCO3/H2CO3 Ratio 17:1 ABG pH 7.33 L ABG pCO2 50.0 H ABG pO2 102.8 H ABG HCO3 25.9 ABG O2 Saturation 97.3 ABG Base Excess -0.4 FiO2 60% Sodium Potassium Chloride Carbon Dioxide Anion Gap BUN Creatinine Est GFR ( Amer) Est GFR (Non-Af Amer) Glucose Calcium Magnesium Total Bilirubin AST ALT Alkaline Phosphatase Total Protein Albumin Assessment & Plan - Diagnosis (1) Acute airway obstruction Is this a current diagnosis for this admission?: Yes Plan: Resulting in subsequent tracheostomy (2) Angioedema Qualifiers: Encounter type: subsequent encounter Qualified Code(s): T78.3XXD - Angioneurotic edema, subsequent encounter Is this a current diagnosis for this admission?: Yes Plan: Recurrent (3) Atrial fibrillation Qualifiers: Atrial fibrillation type: chronic Qualified Code(s): I48.2 - Chronic atrial fibrillation Is this a current diagnosis for this admission?: Yes Plan: As per cardiology (4) GRACY (obstructive sleep apnea) Is this a current diagnosis for this admission?: Yes Plan: NPSG if necessary (5) Obesity hypoventilation syndrome Is this a current diagnosis for this admission?: Yes Plan: History of PCO2 elevation refer to 04/23/2017 - Time Total Critical Time (Minutes): 50
--- NOTE | 2017-05-24 14:21 | PDOC PROGRESS REPORT ---
Subjective Progress Note for:: 05/20/17 Subjective:: Obtunded Reason For Visit: ANGIOEDEMA, RESPIRATORY FAILURE Physical Exam Vital Signs: Temp Pulse Resp BP Pulse Ox 100.2 F 119 H 22 H 119/82 100 05/20/17 08:00 05/20/17 08:00 05/20/17 08:00 05/20/17 08:00 05/20/17 08:00 Intake & Output 05/19/17 05/20/17 05/21/17 06:59 06:59 06:59 Intake Total 0 4320 Output Total 2630 600 Balance 0 1690 -600 Weight 139.3 kg General appearance: PRESENT: no acute distress, disheveled, morbidly obese. ABSENT: cooperative Head exam: PRESENT: atraumatic, normocephalic Eye exam: PRESENT: conjunctiva pale Mouth exam: PRESENT: dry mucosa, neck supple, tongue midline - Protruding from oral cavity. ABSENT: laceration, moist Neck exam: PRESENT: tracheostomy. ABSENT: carotid bruit, JVD, lymphadenopathy, thyromegaly, tracheal deviation Respiratory exam: PRESENT: decreased breath sounds, prolonged expiratory phas, rhonchi, symmetrical, unlabored. ABSENT: retraction, tachypnea Cardiovascular exam: PRESENT: irregular rhythm Pulses: PRESENT: normal radial pulses GI/Abdominal exam: PRESENT: diminished bowel sounds, soft Gentrourinary exam: PRESENT: indwelling catheter Extremities exam: ABSENT: clubbing Musculoskeletal exam: PRESENT: deformity, dislocation Neurological exam: ABSENT: oriented to person, oriented to place, oriented to time, oriented to situation Skin exam: PRESENT: dry, warm Results Laboratory Results: 05/20/17 04:06 05/20/17 04:06 05/20/17 05/20/17 05/20/17 04:06 04:06 05:50 WBC 9.6 RBC 4.11 L Hgb 12.1 L Hct 36.7 L MCV 89 MCH 29.4 MCHC 33.0 RDW 14.2 H Plt Count 132 L Seg Neutrophils % 76.4 Lymphocytes % 10.1 L Monocytes % 12.4 Eosinophils % 0.5 Basophils % 0.6 Absolute Neutrophils 7.3 Absolute Lymphocytes 1.0 Absolute Monocytes 1.2 Absolute Eosinophils 0.0 Absolute Basophils 0.1 Carbonic Acid 1.52 H HCO3/H2CO3 Ratio 17:1 ABG pH 7.35 ABG pCO2 50.6 H ABG pO2 32.2 L* ABG HCO3 27.2 H ABG O2 Saturation 57.9 L ABG Base Excess 0.9 FiO2 50% Sodium 136.6 L Potassium 4.2 D Chloride 103 Carbon Dioxide 26 Anion Gap 8 BUN 11 Creatinine 0.57 Est GFR ( Amer) > 60 Est GFR (Non-Af Amer) > 60 Glucose 154 H Calcium 7.6 L Magnesium 1.6 Total Bilirubin 0.4 AST 16 L ALT 25 Alkaline Phosphatase 55 Total Protein 5.3 L Albumin 3.1 L 05/20/17 06:32 WBC RBC Hgb Hct MCV MCH MCHC RDW Plt Count Seg Neutrophils % Lymphocytes % Monocytes % Eosinophils % Basophils % Absolute Neutrophils Absolute Lymphocytes Absolute Monocytes Absolute Eosinophils Absolute Basophils Carbonic Acid 1.21 HCO3/H2CO3 Ratio 20:1 ABG pH 7.42 ABG pCO2 40.1 ABG pO2 79.1 L ABG HCO3 25.1 ABG O2 Saturation 95.9 ABG Base Excess 0.6 FiO2 40% Sodium Potassium Chloride Carbon Dioxide Anion Gap BUN Creatinine Est GFR ( Amer) Est GFR (Non-Af Amer) Glucose Calcium Magnesium Total Bilirubin AST ALT Alkaline Phosphatase Total Protein Albumin Impressions: Chest X-Ray 05/20/17 06:00 IMPRESSION: 1. Tubes and lines in appropriate radiographic position. 2. Possible small left pleural effusion with streaky bibasilar opacities which may be related to atelectasis. Assessment & Plan - Diagnosis (1) Acute airway obstruction Is this a current diagnosis for this admission?: Yes Plan: Resulting in subsequent tracheostomy (2) Angioedema Qualifiers: Encounter type: subsequent encounter Qualified Code(s): T78.3XXD - Angioneurotic edema, subsequent encounter Is this a current diagnosis for this admission?: Yes Plan: Minimal if any improvement (3) GRACY (obstructive sleep apnea) Is this a current diagnosis for this admission?: Yes Plan: NPSG if necessary (4) Obesity hypoventilation syndrome Is this a current diagnosis for this admission?: Yes Plan: History of PCO2 elevation refer to 04/23/2017 - Time Total Critical Time (Minutes): 45
[2017-05-24] MEDS: ACETAMINOPHEN 650 MG SUPP.RECT PR PRN ×2 (16:04→21:58)
[2017-05-24] MEDS: DIAZEPAM INJ 10 MG/2 ML DISP.SYRIN IV PRN (18:12)
--- NOTE | 2017-05-24 19:41 | PDOC PROGRESS REPORT ---
Subjective Progress Note for:: 05/24/17 Subjective:: Patient about the same and has made very little progress. There is no significant change in general condition. Patient remains endotracheally intubated through tracheostomy. He has been noted to have intermittent agitation especially during suctioning. Patient remains sedated. He is noted to have intermittent tachycardia. Patient is receiving beta-blockers. Patient remains intubated, sedated, patient however looks comfortable and in acute distress. Medications reviewed. Reason For Visit: ANGIOEDEMA, RESPIRATORY FAILURE Physical Exam Vital Signs: Temp Pulse Resp BP Pulse Ox 101.3 F H 119 H 16 148/90 H 98 05/24/17 18:00 05/24/17 14:28 05/24/17 18:00 05/24/17 17:33 05/24/17 18:00 Intake & Output 05/23/17 05/24/17 05/25/17 06:59 06:59 06:59 Intake Total 2259 2748 1650 Output Total 2315 1740 2750 Balance -56 1008 -1100 Weight 132.9 kg 133.6 kg Exam: GENERAL: well-nourished and in no acute distress. Patient is intubated and sedated. Orientation cannot be checked HEAD: Atraumatic, normocephalic. EYES: Pupils equal round and reactive to light, extraocular movements could not be checked, sclera anicteric, conjunctiva are normal. ENT: TMs normal, nares patent, oropharynx clear without exudates. Moist mucous membranes. No oral ulcerations or bleeding gums noted NECK: supple without lymphadenopathy or JVD. Trachea is central. No cervical or axillary lymphadenopathy noted. Carotids are 2+ LUNGS: Breath sounds mostly clear to auscultation patient is noted to have bibasal crackles at the extreme bases CHEST: Palpation of the chest wall shows no significant chest wall tenderness or abnormalities. 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 ABDOMEN: Soft, no significant tenderness appreciated, normoactive bowel sounds. No guarding, no rebound. No rigidity noted . No masses appreciated. EXTREMITIES: Pedal pulses are 1-2+, no calf tenderness noted, 1+ pedal edema noted. No clubbing or cyanosis. NEUROLOGICAL: The patient cannot participate in the neurological exam but no facial asymmetry noted. Extremities slightly hypotonic PSYCH: This cannot be evaluated. Patient cannot participate. SKIN: No significant ecchymosis, rash, or signs of pruritus noted. MUSCULOSKELETAL EXAM: No significant joint swelling noted. Patient cannot participate in musculoskeletal exam Results Laboratory Results: 05/24/17 05:20 05/24/17 05:20 05/24/17 05/24/17 05/24/17 05:20 05:20 05:20 WBC 4.4 RBC 3.71 L Hgb 10.9 L Hct 33.2 L MCV 90 MCH 29.5 MCHC 32.9 RDW 14.6 H Plt Count 143 L Seg Neutrophils % Not Reportable Lymphocytes % Not Reportable Monocytes % Not Reportable Eosinophils % Not Reportable Basophils % Not Reportable Absolute Neutrophils Not Reportable Absolute Lymphocytes Not Reportable Absolute Monocytes Not Reportable Absolute Eosinophils Not Reportable Absolute Basophils Not Reportable Carbonic Acid 1.28 HCO3/H2CO3 Ratio 20:1 ABG pH 7.42 ABG pCO2 42.6 ABG pO2 66.7 L ABG HCO3 26.8 H ABG O2 Saturation 93.5 L ABG Base Excess 2.0 FiO2 35% Sodium 136.8 L Potassium 3.8 Chloride 103 Carbon Dioxide 30 Anion Gap 4 L BUN 9 Creatinine 0.60 Est GFR ( Amer) > 60 Est GFR (Non-Af Amer) > 60 Glucose 156 H Calcium 8.2 L Magnesium 1.9 Total Bilirubin 0.2 AST 25 ALT 25 Alkaline Phosphatase 45 Total Protein 5.1 L Albumin 2.6 L EKG Comments: Telemetry strips shows sinus rhythm with intermittent sinus tachycardia. Impressions: Abdomen/Pelvis CT 05/20/17 00:00 IMPRESSION: Small 2 cm left renal mass with apparent rim calcification. If clinically warranted CT with IV contrast may be of value for further evaluation. Small bilateral adrenal nodules which appears stable when correlated with the previous study. Other findings as noted above Chest CT 05/20/17 00:00 IMPRESSION: Tiny bilateral pleural effusions are identified with associated predominately basilar airspace consolidation most consistent with atelectatic changes although I cannot exclude pneumonic consolidations. Tracheostomy tube and NG tube are identified in position. Other findings as noted above Chest X-Ray 05/24/17 06:00 IMPRESSION: NO CHANGE IN APPEARANCE OF THE CHEST. Assessment & Plan - Diagnosis (1) Acute airway obstruction Is this a current diagnosis for this admission?: Yes (2) Angioedema Qualifiers: Encounter type: subsequent encounter Qualified Code(s): T78.3XXD - Angioneurotic edema, subsequent encounter Is this a current diagnosis for this admission?: Yes (3) GRACY (obstructive sleep apnea) Is this a current diagnosis for this admission?: Yes (4) COPD (chronic obstructive pulmonary disease) Qualifiers: COPD type: unspecified COPD Qualified Code(s): J44.9 - Chronic obstructive pulmonary disease, unspecified Is this a current diagnosis for this admission?: Yes (5) Diabetes Qualifiers: Diabetes mellitus type: type 2 Diabetes mellitus complication status: with diabetic arthropathy Diabetes mellitus complication detail: with other arthropathy Diabetes mellitus [facility] insulin use: with [facility] use Qualified Code(s): E11.618 - Type 2 diabetes mellitus with other diabetic arthropathy; 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 Currently gradually getting better but very slowly. Remains intubated. Will continue to follow. Currently seems stable from cardiac standpoint and maintaining stable vital signs. - Time Time with patient: 15-25 minutes - CODE STATUS was discussed, patient remains full code. Surrogate decision-maker unchanged. Multiple medical problems were addressed. More than 50% of the time spent coordinating care, discussing management plans with involved caregivers. Management plans discussed with involved personnels. Medical decision making was of moderate to high complexity , patient's has multiple comorbidities. Medications reviewed and adjusted accordingly: Yes
[2017-05-24 21:01] LABS: VANCOMYCIN,TROUGH 13.3 ug/mL (5.0-20.0)
[2017-05-25] MEDS: INSULIN LISPRO 100 UNIT/ML 3 ML VIAL SUBCUT PRN ×2 (00:48→18:40)
[2017-05-25] MEDS: FENTANYL CITRATE INJ/PF 100 MCG/2 ML AMPUL IV PRN ×2 (00:49→06:22)
[2017-05-25] MEDS: IPRATROPIUM/ALBUTEROL 0.5-2.5 MG/3 ML AMPUL NEB SCH ×4 (00:51→20:05)
[2017-05-25] MEDS: VANCOMYCIN HCL 1,500 MG in DEXTROSE 5%-WATER 250 ML IV SCH ×2 (03:02→09:00)
[2017-05-25] MEDS: MEROPENEM 1 GM in NORMAL SALINE 100 ML IV SCH (05:03)
[2017-05-25 05:17] LABS: ABSOLUTE EOSINOPHILS # (AUTO) 0.1 10^3/uL (0.0-0.6); ABSOLUTE LYMPHOCYTES (AUTO) 1.1 10^3/uL (0.5-4.7); ABSOLUTE MONOCYTES (AUTO) 0.9 10^3/uL (0.1-1.4); ABSOLUTE NEUT (AUTO) 3.4 10^3/uL (1.7-8.2); ARTERIAL BLOOD H2CO3 1.28 mmol/L (1.05-1.35); ARTERIAL BLOOD HCO3 28.5 mmol/L (20-26); ARTERIAL BLOOD O2 SATURATION 92.3 % (94-98); ARTERIAL BLOOD PCO2 42.5 mmHg (35-45); ARTERIAL BLOOD PH 7.44 (7.35-7.45); ARTERIAL BLOOD PO2 61.1 mmHg (80-100); ARTERIAL BLOOD TOTAL CO2 29.8 mmol/L (23-27); BASOPHILS % (AUTO) 0.2 % (0-2); EOSINOPHILS % (AUTO) 1.8 % (0-6); HEMATOCRIT 34.2 % (37.9-51.0); HEMOGLOBIN 11.3 g/dL (13.5-17.0); LYMPHOCYTES % (AUTO) 20.1 % (13-45); MEAN CORPUSCULAR HEMOGLOBIN 29.3 pg (27.0-33.4); MEAN CORPUSCULAR HGB CONC 33.1 g/dL (32.0-36.0); MEAN CORPUSCULAR VOLUME 88 fl (80-97); MONOCYTES % (AUTO) 15.8 % (3-13); PLATELET COUNT 144 10^3/uL (150-450); RED BLOOD COUNT 3.87 10^6/uL (4.35-5.55); RED CELL DISTRIBUTION WIDTH 14.3 % (11.5-14.0); SEGMENTED NEUTROPHILS % (AUTO) 62.1 % (42-78); TOTAL CELLS COUNTED % (AUTO) 100 %; WHITE BLOOD COUNT 5.5 10^3/uL (4.0-10.5)
[2017-05-25 05:23] LABS: ALANINE AMINOTRANSFERASE 32 U/L (21-72); ALBUMIN 2.7 g/dL (3.5-5.0); ALKALINE PHOSPHATASE 45 U/L (38-126); ANION GAP 7 (5-19); ASPARTATE AMINO TRANSFERASE 24 U/L (17-59); BILIRUBIN,DIRECT 0.2 mg/dL (0.0-0.4); BILIRUBIN,TOTAL 0.2 mg/dL (0.2-1.3); BLOOD UREA NITROGEN 7 mg/dL (7-20); CALCIUM 8.2 mg/dL (8.4-10.2); CARBON DIOXIDE 29 mmol/L (22-30); CHLORIDE 103 mmol/L (98-107); GLUCOSE 248 mg/dL (75-110); POTASSIUM 3.5 mmol/L (3.6-5.0); SODIUM 138.7 mmol/L (137-145); TOTAL PROTEIN 5.2 g/dL (6.3-8.2)
[2017-05-25 05:31] LABS: ARTERIAL BLOOD FIO2 35%
--- NOTE | 2017-05-25 08:21 | RADIOLOGY REPORT (SQ) ---
EXAM DESCRIPTION: CHEST SINGLE VIEW COMPLETED DATE/TIME: 05/25/2017 7:11 am REASON FOR STUDY: Respiratory failure COMPARISON: 05/24/2017. EXAM PARAMETERS: NUMBER OF VIEWS: One view. TECHNIQUE: Single frontal radiographic view of the chest acquired. RADIATION DOSE: NA LIMITATIONS: None. FINDINGS: LUNGS AND PLEURA: Patchy basilar atelectasis. MEDIASTINUM AND HILAR STRUCTURES: No masses. Contour normal. HEART AND VASCULAR STRUCTURES: Cardiomegaly. BONES: No acute findings. HARDWARE: Tracheostomy tube, nasogastric tube, and central line. OTHER: No other significant finding. IMPRESSION: NO CHANGE IN APPEARANCE OF THE CHEST. TECHNICAL DOCUMENTATION: JOB ID: [id number] [employer]- All Rights Reserved
--- NOTE | 2017-05-25 08:57 | PDOC PROGRESS REPORT ---
Subjective Progress Note for:: 05/25/17 Subjective:: 61-year-old with a known history of chronic CHF ,obstructive sleep apnea, cocaine user, and recurrent angioedema status post tracheostomy. Patient is awake communicating with staff He is on ventilatory support and appears quite comfortable, Reason For Visit: ANGIOEDEMA, RESPIRATORY FAILURE Physical Exam Vital Signs: Temp Pulse Resp BP Pulse Ox 99.0 F 107 H 21 H 133/89 H 96 05/25/17 08:00 05/25/17 08:00 05/25/17 08:00 05/25/17 08:00 05/25/17 08:00 Intake & Output 05/24/17 05/25/17 05/26/17 00:59 00:59 00:59 Intake Total 2372 3263 1338 Output Total 1315 4160 955 Balance 1057 -897 383 Weight 132.9 kg 133.6 kg 130.7 kg General appearance: PRESENT: other - Sedated, trach in place Head exam: PRESENT: atraumatic, normocephalic Eye exam: PRESENT: conjunctiva pink, EOMI Ear exam: PRESENT: normal external ear exam Mouth exam: PRESENT: moist, tongue midline Neck exam: PRESENT: tracheostomy Respiratory exam: PRESENT: other - Patient has fair air movement in upper lobes diminished at bases no crackles appreciated Cardiovascular exam: PRESENT: RRR. ABSENT: diastolic murmur, rubs, systolic murmur Pulses: PRESENT: normal pulses Vascular exam: PRESENT: normal capillary refill GI/Abdominal exam: PRESENT: normal bowel sounds, soft. ABSENT: distended, guarding, mass, organolmegaly, rebound, tenderness Rectal exam: PRESENT: deferred Extremities exam: ABSENT: calf tenderness, clubbing, pedal edema Neurological exam: PRESENT: other - Sedated Psychiatric exam: PRESENT: other - Sedated Skin exam: PRESENT: dry, intact, warm. ABSENT: cyanosis, rash Results Laboratory Results: 05/25/17 04:53 05/25/17 04:53 05/25/17 05/25/17 05/25/17 04:53 04:53 04:53 WBC 5.5 RBC 3.87 L Hgb 11.3 L Hct 34.2 L MCV 88 MCH 29.3 MCHC 33.1 RDW 14.3 H Plt Count 144 L Seg Neutrophils % 62.1 Lymphocytes % 20.1 Monocytes % 15.8 H Eosinophils % 1.8 Basophils % 0.2 Absolute Neutrophils 3.4 Absolute Lymphocytes 1.1 Absolute Monocytes 0.9 Absolute Eosinophils 0.1 Absolute Basophils 0.0 Carbonic Acid 1.28 HCO3/H2CO3 Ratio 22:1 ABG pH 7.44 ABG pCO2 42.5 ABG pO2 61.1 L ABG HCO3 28.5 H ABG O2 Saturation 92.3 L ABG Base Excess 4.0 FiO2 35% Sodium 138.7 Potassium 3.5 L Chloride 103 Carbon Dioxide 29 Anion Gap 7 BUN 7 Creatinine 0.59 Est GFR ( Amer) > 60 Est GFR (Non-Af Amer) > 60 Glucose 248 H Calcium 8.2 L Magnesium 1.7 Total Bilirubin 0.2 AST 24 ALT 32 Alkaline Phosphatase 45 Total Protein 5.2 L Albumin 2.7 L 05/20/17 06:50 Blood Blood Culture - Final NO GROWTH IN 5 DAYS 05/20/17 06:58 Blood Blood Culture - Final NO GROWTH IN 5 DAYS Impressions: Abdomen/Pelvis CT 05/20/17 00:00 IMPRESSION: Small 2 cm left renal mass with apparent rim calcification. If clinically warranted CT with IV contrast may be of value for further evaluation. Small bilateral adrenal nodules which appears stable when correlated with the previous study. Other findings as noted above Chest CT 05/20/17 00:00 IMPRESSION: Tiny bilateral pleural effusions are identified with associated predominately basilar airspace consolidation most consistent with atelectatic changes although I cannot exclude pneumonic consolidations. Tracheostomy tube and NG tube are identified in position. Other findings as noted above Chest X-Ray 05/25/17 06:00 IMPRESSION: NO CHANGE IN APPEARANCE OF THE CHEST. Assessment & Plan - Diagnosis (1) HAP (hospital-acquired pneumonia) Is this a current diagnosis for this admission?: Yes Plan: Sputum correct culture grew haemophilus influenzae and strep there was no evidence of MRSA infection We will discontinue vancomycin and continue cefepime and Levaquin (2) Chronic anticoagulation Is this a current diagnosis for this admission?: Yes Plan: Had been discontinued as there was bleeding at the site of tracheostomy Discussed the case with Dr. Humphries We will resume anticoagulation with Lovenox at 1 mg/kg every 12 Follow-up H&H Discontinue if recurrent bleeding (3) Angioedema Qualifiers: Encounter type: subsequent encounter Qualified Code(s): T78.3XXD - Angioneurotic edema, subsequent encounter Is this a current diagnosis for this admission?: Yes Plan: Has resolved (4) Congestive heart failure Is this a current diagnosis for this admission?: Yes Plan: Last echocardiogram performed on 05/20/2017 showed normal systolic function and diastolic dysfunction CHF is well compensated at this time Just monitor fluids closely (5) Drug abuse Is this a current diagnosis for this admission?: Yes - Time Time Spent with patient: 25-34 minutes - Ventilatory management as per Dr. Humphries Patient not yet comfortable on the c-collar
[2017-05-25] MEDS: RISPERIDONE 0.5 MG TAB.RAPDIS PO SCH ×2 (09:27→21:43)
[2017-05-25] MEDS: METOPROLOL TARTRATE 50 MG TABLET PO SCH ×2 (09:27→21:43)
[2017-05-25] MEDS: FLUTICASONE NASAL SPRAY 50 MCG/SPRY 120 SPRAY/16 GM NASL SCH (09:28)
[2017-05-25] MEDS: FAMOTIDINE INJ/PF 20 MG/2 ML SDV IV SCH ×2 (09:28→21:43)
[2017-05-25] MEDS: BUDESONIDE/FORMOTEROL 160-4.5 MCG 60 PUFF/6 GM MDI IH SCH ×2 (09:28→21:51)
[2017-05-25] MEDS ORDERED: CEFEPIME 2 GM/D5W RTU 2 GM/50 ML RTUPB IV SCH (10:00)
[2017-05-25] MEDS: CEFEPIME HCL 2 GM in DEXTROSE 5%-WATER 100 ML IV SCH ×2 (10:18→21:44)
[2017-05-25] MEDS: LEVOFLOXACIN 750 MG/D5W RTU 750 MG/150 ML RTUPB IV SCH (11:29)
[2017-05-25] MEDS: ENOXAPARIN SODIUM INJ 150 MG/1 ML DISP.SYRIN SUBCUT SCH ×2 (11:32→21:45)
--- NOTE | 2017-05-25 19:54 | PDOC PROGRESS REPORT ---
Subjective Progress Note for:: 05/25/17 Subjective:: Patient is more alert and is able to not to commands and also follow simple commands. Patient remains endotracheally intubated through tracheostomy. He has been noted to have intermittent agitation especially during suctioning. Currently not on much sedation he is noted to have intermittent tachycardia. Patient is receiving beta-blockers. Medications reviewed. Reason For Visit: ANGIOEDEMA, RESPIRATORY FAILURE Physical Exam Vital Signs: Temp Pulse Resp BP Pulse Ox 99.9 F 111 H 16 129/97 H 100 05/25/17 18:00 05/25/17 16:00 05/25/17 18:00 05/25/17 17:52 05/25/17 18:00 Intake & Output 05/24/17 05/25/17 05/26/17 06:59 06:59 06:59 Intake Total 2748 3099 1385 Output Total 1740 4295 1375 Balance 1008 -1196 10 Weight 133.6 kg 130.7 kg Exam: GENERAL: well-nourished and in no acute distress. Patient is intubated. Patient responding to verbal commands. Orientation could not be checked as patient cannot verbalize due to ET tube. HEAD: Atraumatic, normocephalic. EYES: Pupils equal round and reactive to light, extraocular movements could not be checked, sclera anicteric, conjunctiva are normal. ENT: TMs normal, nares patent, oropharynx clear without exudates. Moist mucous membranes. No oral ulcerations or bleeding gums noted NECK: supple without lymphadenopathy or JVD. Trachea is central. No cervical or axillary lymphadenopathy noted. Carotids are 2+ LUNGS: Breath sounds mostly clear to auscultation patient is noted to have bibasal crackles at the extreme bases CHEST: Palpation of the chest wall shows no significant chest wall tenderness or abnormalities. HEART: [place] ADDICTION NURSE, No PSH, 2/6 PAT aortic area, 1/6 y[place] systolic murmur mitral area , no rubs or gallops. ABDOMEN: Soft, no significant tenderness appreciated, normoactive bowel sounds. No guarding, no rebound. No rigidity noted . No masses appreciated. EXTREMITIES: Pedal pulses are 1-2+, no calf tenderness noted, 1+ pedal edema noted. No clubbing or cyanosis. NEUROLOGICAL: The patient noted to have no facial asymmetry and is able to move all 4 extremities. A full neurological exam was however not performed. PSYCH: This cannot be evaluated. Patient cannot participate. SKIN: No significant ecchymosis, rash, or signs of pruritus noted. MUSCULOSKELETAL EXAM: No significant joint swelling noted. Patient noted to move all 4 extremities. Results Laboratory Results: 05/25/17 04:53 05/25/17 04:53 05/25/17 05/25/17 05/25/17 04:53 04:53 04:53 WBC 5.5 RBC 3.87 L Hgb 11.3 L Hct 34.2 L MCV 88 MCH 29.3 MCHC 33.1 RDW 14.3 H Plt Count 144 L Seg Neutrophils % 62.1 Lymphocytes % 20.1 Monocytes % 15.8 H Eosinophils % 1.8 Basophils % 0.2 Absolute Neutrophils 3.4 Absolute Lymphocytes 1.1 Absolute Monocytes 0.9 Absolute Eosinophils 0.1 Absolute Basophils 0.0 Carbonic Acid 1.28 HCO3/H2CO3 Ratio 22:1 ABG pH 7.44 ABG pCO2 42.5 ABG pO2 61.1 L ABG HCO3 28.5 H ABG O2 Saturation 92.3 L ABG Base Excess 4.0 FiO2 35% Sodium 138.7 Potassium 3.5 L Chloride 103 Carbon Dioxide 29 Anion Gap 7 BUN 7 Creatinine 0.59 Est GFR ( Amer) > 60 Est GFR (Non-Af Amer) > 60 Glucose 248 H Calcium 8.2 L Magnesium 1.7 Total Bilirubin 0.2 AST 24 ALT 32 Alkaline Phosphatase 45 Total Protein 5.2 L Albumin 2.7 L 05/23/17 08:30 Tracheal Aspirate Gram Stain - Final 05/20/17 06:50 Blood Blood Culture - Final NO GROWTH IN 5 DAYS 05/20/17 06:58 Blood Blood Culture - Final NO GROWTH IN 5 DAYS EKG Comments: Telemetry strips shows sinus rhythm with less intermittent tachycardia. Impressions: Abdomen/Pelvis CT 05/20/17 00:00 IMPRESSION: Small 2 cm left renal mass with apparent rim calcification. If clinically warranted CT with IV contrast may be of value for further evaluation. Small bilateral adrenal nodules which appears stable when correlated with the previous study. Other findings as noted above Chest CT 05/20/17 00:00 IMPRESSION: Tiny bilateral pleural effusions are identified with associated predominately basilar airspace consolidation most consistent with atelectatic changes although I cannot exclude pneumonic consolidations. Tracheostomy tube and NG tube are identified in position. Other findings as noted above Chest X-Ray 05/25/17 06:00 IMPRESSION: NO CHANGE IN APPEARANCE OF THE CHEST. Assessment & Plan - Diagnosis (1) Acute airway obstruction Is this a current diagnosis for this admission?: Yes (2) Angioedema Qualifiers: Encounter type: subsequent encounter Qualified Code(s): T78.3XXD - Angioneurotic edema, subsequent encounter Is this a current diagnosis for this admission?: Yes (3) GRACY (obstructive sleep apnea) Is this a current diagnosis for this admission?: Yes (4) COPD (chronic obstructive pulmonary disease) Qualifiers: COPD type: unspecified COPD Qualified Code(s): J44.9 - Chronic obstructive pulmonary disease, unspecified Is this a current diagnosis for this admission?: Yes (5) Diabetes Qualifiers: Diabetes mellitus type: type 2 Diabetes mellitus complication status: with diabetic arthropathy Diabetes mellitus complication detail: with other arthropathy Diabetes mellitus snf insulin use: with emt intermediate use Qualified Code(s): E11.618 - Type 2 diabetes mellitus with other diabetic arthropathy; Z79.4 - intermediate (current) use of insulin; Z79.4 - intermediate manager ( current) use of insulin; Z79.4 - intermediate (current) use of insulin; Z79.4 - intermediate manager (current) use of insulin Is this a current diagnosis for this admission?: Yes (6) Hypertension Qualifiers: Hypertension type: essential hypertension Qualified Code(s): I10 - Essential (primary) hypertension Is this a current diagnosis for this admission?: Yes (7) Drug abuse Is this a current diagnosis for this admission?: Yes (8) Atelectasis, left Is this a current diagnosis for this admission?: Yes - Notes Notes: Currently patient improving gradually. Angioedema has subsided. Continue supportive care. - Time Time with patient: 15-25 minutes - CODE STATUS was discussed, patient remains full code. Surrogate decision-maker unchanged. Multiple medical problems were addressed. More than 50% of the time spent coordinating care, discussing management plans with involved caregivers. Management plans discussed with involved personnels. Medical decision making was of moderate to high complexity , patient's has multiple comorbidities. Medications reviewed and adjusted accordingly: Yes
[2017-05-25] MEDS: NORMAL SALINE 1000 ML 1,000 ML IV PRN (21:45)
[2017-05-26] MEDS: INSULIN LISPRO 100 UNIT/ML 3 ML VIAL SUBCUT PRN ×4 (00:27→18:13)
[2017-05-26 01:09] LABS: APPEARANCE,URINE SLIGHTLY-CLOUDY; BILIRUBIN,URINE NEGATIVE (NEGATIVE); COLOR,URINE YELLOW; GLUCOSE, URINE >=500 mg/dL (NEGATIVE); KETONES,URINE NEGATIVE (NEGATIVE); LEUKOCYTE ESTERASE,URINE NEGATIVE (NEGATIVE); NITRITE,URINE NEGATIVE (NEGATIVE); PROTEIN,URINE 100 mg/dL (NEGATIVE); URINE SPECIFIC GRAVITY 1.025
[2017-05-26] MEDS: IPRATROPIUM/ALBUTEROL 0.5-2.5 MG/3 ML AMPUL NEB SCH ×4 (02:13→20:06)
[2017-05-26 05:40] LABS: HEMATOCRIT 35.2 % (37.9-51.0); HEMOGLOBIN 11.7 g/dL (13.5-17.0); MEAN CORPUSCULAR HEMOGLOBIN 29.4 pg (27.0-33.4); MEAN CORPUSCULAR HGB CONC 33.1 g/dL (32.0-36.0); MEAN CORPUSCULAR VOLUME 89 fl (80-97); PLATELET COUNT 152 10^3/uL (150-450); RED BLOOD COUNT 3.97 10^6/uL (4.35-5.55); RED CELL DISTRIBUTION WIDTH 14.4 % (11.5-14.0); WHITE BLOOD COUNT 6.3 10^3/uL (4.0-10.5)
--- NOTE | 2017-05-26 08:44 | PDOC PROGRESS REPORT ---
Subjective Progress Note for:: 05/26/17 Subjective:: Patient seen on rounds. He did trach collar most of the day yesterday. He is presently back on the vent. He is awake and alert, answering questions appropriately. He denies any chest pain or dyspnea. He denies any nausea, vomiting or abdominal pain. He has had no diarrhea. He denies any pain or arthralgias. Remaining review of systems are negative. Reason For Visit: ANGIOEDEMA, RESPIRATORY FAILURE Physical Exam Vital Signs: Temp Pulse Resp BP Pulse Ox 99.1 F 105 H 15 134/89 H 97 05/26/17 08:00 05/26/17 08:00 05/26/17 08:00 05/26/17 08:00 05/26/17 08:00 Intake & Output 05/25/17 05/26/17 05/27/17 06:59 06:59 06:59 Intake Total 3099 2661 Output Total 4295 2270 Balance -1196 391 Weight 130.7 kg 131.7 kg General appearance: PRESENT: no acute distress, obese, well-developed, well- nourished, other - Trach to ventilator Head exam: PRESENT: atraumatic, normocephalic Eye exam: PRESENT: conjunctiva pink, EOMI, PERRLA. ABSENT: scleral icterus Ear exam: PRESENT: normal external ear exam Mouth exam: PRESENT: moist, tongue midline Teeth exam: PRESENT: edentulous Neck exam: ABSENT: carotid bruit, JVD, lymphadenopathy, thyromegaly Respiratory exam: PRESENT: decreased breath sounds, symmetrical, unlabored - bilateral bases, other - Trach to ventilator Cardiovascular exam: PRESENT: RRR. ABSENT: diastolic murmur, rubs, systolic murmur Pulses: PRESENT: normal dorsalis pedis pul Vascular exam: PRESENT: normal capillary refill GI/Abdominal exam: PRESENT: normal bowel sounds, soft. ABSENT: distended, guarding, mass, organolmegaly, rebound, tenderness Rectal exam: PRESENT: deferred Extremities exam: PRESENT: full ROM. ABSENT: calf tenderness, clubbing, pedal edema Neurological exam: PRESENT: alert, CN II-XII grossly intact, other - Trach to ventilator. Awake, nodding yes or no to questions appropriately Psychiatric exam: PRESENT: appropriate affect, normal mood. ABSENT: homicidal ideation, suicidal ideation Skin exam: PRESENT: dry, intact, warm. ABSENT: cyanosis, rash Results Laboratory Results: 05/26/17 05:27 05/25/17 04:53 05/26/17 05/26/17 00:28 05:27 WBC 6.3 RBC 3.97 L Hgb 11.7 L Hct 35.2 L MCV 89 MCH 29.4 MCHC 33.1 RDW 14.4 H Plt Count 152 Urine Color YELLOW Urine Appearance SLIGHTLY-CLOUDY Urine pH 7.0 Ur Specific Ione 1.025 Urine Protein 100 H Urine Glucose (UA) >=500 H Urine Ketones NEGATIVE Urine Blood LARGE H Urine Nitrite NEGATIVE Ur Leukocyte Esterase NEGATIVE Urine WBC (Auto) 5 Urine RBC (Auto) >182 05/23/17 08:30 Tracheal Aspirate Gram Stain - Final 05/23/17 08:30 Tracheal Aspirate Sputum Culture - Final Klebsiella Pneumoniae C.albicans/C.dubliniensis Greatly Reduced Normal Katya 05/20/17 06:50 Blood Blood Culture - Final NO GROWTH IN 5 DAYS 05/20/17 06:58 Blood Blood Culture - Final NO GROWTH IN 5 DAYS Impressions: Abdomen/Pelvis CT 05/20/17 00:00 IMPRESSION: Small 2 cm left renal mass with apparent rim calcification. If clinically warranted CT with IV contrast may be of value for further evaluation. Small bilateral adrenal nodules which appears stable when correlated with the previous study. Other findings as noted above Chest CT 05/20/17 00:00 IMPRESSION: Tiny bilateral pleural effusions are identified with associated predominately basilar airspace consolidation most consistent with atelectatic changes although I cannot exclude pneumonic consolidations. Tracheostomy tube and NG tube are identified in position. Other findings as noted above Chest X-Ray 05/25/17 06:00 IMPRESSION: NO CHANGE IN APPEARANCE OF THE CHEST. Assessment & Plan - Diagnosis (1) HAP (hospital-acquired pneumonia) Is this a current diagnosis for this admission?: Yes Plan: Continue antibiotics. Sputum culture grew klebsiella pneumo, on appropriate antibiotics (2) Acute airway obstruction Is this a current diagnosis for this admission?: Yes (3) Angioedema Qualifiers: Encounter type: subsequent encounter Qualified Code(s): T78.3XXD - Angioneurotic edema, subsequent encounter Is this a current diagnosis for this admission?: Yes Plan: Patient has had recurrent angioedema in the past. This time requiring emergent tracheostomy. He is weaning well from the ventilator (4) Atelectasis, left Is this a current diagnosis for this admission?: Yes (5) Congestive heart failure Is this a current diagnosis for this admission?: Yes Plan: Patient appears euvolemic (6) Drug abuse Is this a current diagnosis for this admission?: Yes (7) GRACY (obstructive sleep apnea) Is this a current diagnosis for this admission?: Yes (8) Acute respiratory failure Qualifiers: Respiratory failure complication: hypoxia and hypercapnia Qualified Code(s) : J96.01 - Acute respiratory failure with hypoxia; J96.02 - Acute respiratory failure with hypercapnia; J96.02 - Acute respiratory failure with hypercapnia; J96.02 - Acute respiratory failure with hypercapnia Is this a current diagnosis for this admission?: Yes Plan: Weaning well from the ventilator. Did trach collar all day yesterday. Awake and alert this morning (9) COPD (chronic obstructive pulmonary disease) Qualifiers: COPD type: unspecified COPD Qualified Code(s): J44.9 - Chronic obstructive pulmonary disease, unspecified Is this a current diagnosis for this admission?: Yes
[2017-05-26] MEDS: FAMOTIDINE INJ/PF 20 MG/2 ML SDV IV SCH ×2 (09:01→23:25)
[2017-05-26] MEDS: CEFEPIME HCL 2 GM in DEXTROSE 5%-WATER 100 ML IV SCH ×2 (09:02→23:25)
[2017-05-26] MEDS: ENOXAPARIN SODIUM INJ 150 MG/1 ML DISP.SYRIN SUBCUT SCH ×2 (09:04→23:23)
[2017-05-26] MEDS: FLUTICASONE NASAL SPRAY 50 MCG/SPRY 120 SPRAY/16 GM NASL SCH (09:12)
[2017-05-26] MEDS: BUDESONIDE/FORMOTEROL 160-4.5 MCG 60 PUFF/6 GM MDI IH SCH ×2 (09:12→23:28)
[2017-05-26] MEDS: RISPERIDONE 0.5 MG TAB.RAPDIS PO SCH ×2 (09:13→23:17)
[2017-05-26] MEDS: METOPROLOL TARTRATE 50 MG TABLET PO SCH ×2 (09:14→23:17)
[2017-05-26] MEDS: LEVOFLOXACIN 750 MG/D5W RTU 750 MG/150 ML RTUPB IV SCH (11:29)
[2017-05-26] MEDS: ACETAMINOPHEN 650 MG SUPP.RECT PR PRN (12:32)
[2017-05-27] MEDS: FENTANYL CITRATE INJ/PF 100 MCG/2 ML AMPUL IV PRN ×2 (01:00→23:14)
[2017-05-27] MEDS: NORMAL SALINE INJ/PF 0.9% 10 ML SDV IV PRN ×3 (01:20→13:10)
[2017-05-27] MEDS: IPRATROPIUM/ALBUTEROL 0.5-2.5 MG/3 ML AMPUL NEB SCH ×4 (01:33→20:42)
[2017-05-27] MEDS: INSULIN LISPRO 100 UNIT/ML 3 ML VIAL SUBCUT PRN ×2 (01:41→18:50)
[2017-05-27 05:53] LABS: ABSOLUTE EOSINOPHILS # (AUTO) 0.1 10^3/uL (0.0-0.6); ABSOLUTE LYMPHOCYTES (AUTO) 1.2 10^3/uL (0.5-4.7); ABSOLUTE MONOCYTES (AUTO) 0.9 10^3/uL (0.1-1.4); ABSOLUTE NEUT (AUTO) 5.1 10^3/uL (1.7-8.2); BASOPHILS % (AUTO) 0.3 % (0-2); EOSINOPHILS % (AUTO) 1.7 % (0-6); HEMATOCRIT 35.4 % (37.9-51.0); HEMOGLOBIN 11.7 g/dL (13.5-17.0); LYMPHOCYTES % (AUTO) 16.1 % (13-45); MEAN CORPUSCULAR HEMOGLOBIN 29.2 pg (27.0-33.4); MEAN CORPUSCULAR VOLUME 88 fl (80-97); MONOCYTES % (AUTO) 11.7 % (3-13); PLATELET COUNT 163 10^3/uL (150-450); RED CELL DISTRIBUTION WIDTH 13.9 % (11.5-14.0); SEGMENTED NEUTROPHILS % (AUTO) 70.2 % (42-78); TOTAL CELLS COUNTED % (AUTO) 100 %; WHITE BLOOD COUNT 7.3 10^3/uL (4.0-10.5)
[2017-05-27 06:00] LABS: ANION GAP 9 (5-19); BLOOD UREA NITROGEN 7 mg/dL (7-20); CALCIUM 8.7 mg/dL (8.4-10.2); CARBON DIOXIDE 30 mmol/L (22-30); CHLORIDE 103 mmol/L (98-107); GLUCOSE 213 mg/dL (75-110); POTASSIUM 3.6 mmol/L (3.6-5.0); SODIUM 142.2 mmol/L (137-145)
[2017-05-27 06:34] LABS: ARTERIAL BLOOD H2CO3 1.44 mmol/L (1.05-1.35); ARTERIAL BLOOD HCO3 29.5 mmol/L (20-26); ARTERIAL BLOOD O2 SATURATION 84.9 % (94-98); ARTERIAL BLOOD PCO2 47.9 mmHg (35-45); ARTERIAL BLOOD PH 7.41 (7.35-7.45); ARTERIAL BLOOD PO2 49.5 mmHg (80-100); ARTERIAL BLOOD TOTAL CO2 30.9 mmol/L (23-27)
[2017-05-27 06:35] LABS: ARTERIAL BLOOD FIO2 40%
--- NOTE | 2017-05-27 07:53 | RADIOLOGY REPORT (SQ) ---
EXAM DESCRIPTION: CHEST SINGLE VIEW COMPLETED DATE/TIME: 05/27/2017 6:56 am REASON FOR STUDY: Anaphylaxis COMPARISON: 05/25/2017. EXAM PARAMETERS: NUMBER OF VIEWS: One view. TECHNIQUE: Single frontal radiographic view of the chest acquired. RADIATION DOSE: NA LIMITATIONS: None. FINDINGS: LUNGS AND PLEURA: Persistent bibasilar densities consistent with atelectasis. Bilateral p leural thickening. MEDIASTINUM AND HILAR STRUCTURES: No masses. Contour normal. HEART AND VASCULAR STRUCTURES: Borderline cardiac size. The pulmonary vasculature is normal. HARDWARE: Tracheostomy tube in place. OTHER: Right IJ line overlying SVC. Chest leads in place. IMPRESSION: Cardiomegaly. Bibasilar discoid atelectasis with bilateral pleural thickening or effusi ons. No significant change. TECHNICAL DOCUMENTATION: JOB ID: [id number] [employer]- All Rights Reserved
[2017-05-27] MEDS: FAMOTIDINE INJ/PF 20 MG/2 ML SDV IV SCH ×2 (09:00→22:59)
[2017-05-27] MEDS: RISPERIDONE 0.5 MG TAB.RAPDIS PO SCH (09:01)
[2017-05-27] MEDS: METOPROLOL TARTRATE 50 MG TABLET PO SCH (09:02)
[2017-05-27] MEDS: CEFEPIME HCL 2 GM in DEXTROSE 5%-WATER 100 ML IV SCH (09:05)
[2017-05-27] MEDS: ENOXAPARIN SODIUM INJ 150 MG/1 ML DISP.SYRIN SUBCUT SCH ×2 (09:07→23:07)
[2017-05-27] MEDS: BUDESONIDE/FORMOTEROL 160-4.5 MCG 60 PUFF/6 GM MDI IH SCH ×2 (09:09→23:24)
[2017-05-27] MEDS: FLUTICASONE NASAL SPRAY 50 MCG/SPRY 120 SPRAY/16 GM NASL SCH (09:09)
[2017-05-27] MEDS ORDERED: PHARMACY COMMUNICATION ORDER MC NR (09:45)
[2017-05-27] MEDS ORDERED: HYDRALAZINE HCL INJ/PF 20 MG/1 ML SDV IV PRN (09:52)
[2017-05-27] MEDS: LEVOFLOXACIN 750 MG/D5W RTU 750 MG/150 ML RTUPB IV SCH (10:09)
--- NOTE | 2017-05-27 10:58 | PDOC PROGRESS REPORT ---
Subjective Progress Note for:: 05/27/17 Subjective:: The patient is resting in his bed. His NG tube was dislodged last night. He basically has indicated that he does not want it replaced. I have consulted speech therapy this morning to see the patient to start evaluating his swallowing and see if we can give him his medications and start regular diet. We will await the recommendations today and will hold off on replacing the NG tube. I have discussed this with the patient and he is in agreement with this for now. He was difficult to get a good review of systems from the patient due to his trach. He states that he has no acute complaints. Nursing staff reports no overnight events other than the fact that his NG tube became dislodged. Reason For Visit: ANGIOEDEMA, RESPIRATORY FAILURE Physical Exam Vital Signs: Temp Pulse Resp BP Pulse Ox 99.0 F 105 H 19 147/94 H 100 05/27/17 10:00 05/27/17 08:00 05/27/17 10:00 05/27/17 09:01 05/27/17 10:00 Intake & Output 05/26/17 05/27/17 05/28/17 06:59 06:59 06:59 Intake Total 2661 2105 Output Total 2270 1600 150 Balance 391 505 -150 Weight 131.7 kg 130.3 kg General appearance: PRESENT: no acute distress, obese, well-developed, well- nourished Head exam: PRESENT: atraumatic, normocephalic Mouth exam: PRESENT: moist, tongue midline Throat exam: PRESENT: other - He has a tracheostomy in place Respiratory exam: PRESENT: clear to auscultation angelina, decreased breath sounds. ABSENT: rales, rhonchi, wheezes Cardiovascular exam: PRESENT: RRR. ABSENT: diastolic murmur, rubs, systolic murmur GI/Abdominal exam: PRESENT: normal bowel sounds, soft. ABSENT: distended, guarding, mass, organolmegaly, rebound, tenderness Rectal exam: PRESENT: deferred Extremities exam: PRESENT: full ROM. ABSENT: calf tenderness, clubbing, pedal edema Neurological exam: PRESENT: alert, awake, oriented to person, oriented to place , oriented to time, oriented to situation, CN II-XII grossly intact. ABSENT: motor sensory deficit Psychiatric exam: PRESENT: appropriate affect, normal mood. ABSENT: homicidal ideation, suicidal ideation Skin exam: PRESENT: dry, intact, warm. ABSENT: cyanosis, rash Results Laboratory Results: 05/27/17 05:10 05/27/17 05:10 05/27/17 05/27/17 05/27/17 05:10 05:10 05:10 WBC 7.3 RBC 4.00 L Hgb 11.7 L Hct 35.4 L MCV 88 MCH 29.2 MCHC 33.0 RDW 13.9 Plt Count 163 Seg Neutrophils % 70.2 Lymphocytes % 16.1 Monocytes % 11.7 Eosinophils % 1.7 Basophils % 0.3 Absolute Neutrophils 5.1 Absolute Lymphocytes 1.2 Absolute Monocytes 0.9 Absolute Eosinophils 0.1 Absolute Basophils 0.0 Carbonic Acid HCO3/H2CO3 Ratio ABG pH ABG pCO2 ABG pO2 ABG HCO3 ABG O2 Saturation ABG Base Excess FiO2 Sodium 142.2 Potassium 3.6 Chloride 103 Carbon Dioxide 30 Anion Gap 9 BUN 7 Creatinine 0.51 L Est GFR ( Amer) > 60 Est GFR (Non-Af Amer) > 60 Glucose 213 H Calcium 8.7 Magnesium 1.9 Cancelled 05/27/17 06:25 WBC RBC Hgb Hct MCV MCH MCHC RDW Plt Count Seg Neutrophils % Lymphocytes % Monocytes % Eosinophils % Basophils % Absolute Neutrophils Absolute Lymphocytes Absolute Monocytes Absolute Eosinophils Absolute Basophils Carbonic Acid 1.44 H HCO3/H2CO3 Ratio 20:1 ABG pH 7.41 ABG pCO2 47.9 H ABG pO2 49.5 L ABG HCO3 29.5 H ABG O2 Saturation 84.9 L ABG Base Excess 4.0 FiO2 40% Sodium Potassium Chloride Carbon Dioxide Anion Gap BUN Creatinine Est GFR ( Amer) Est GFR (Non-Af Amer) Glucose Calcium Magnesium 05/23/17 12:09 Blood Blood Culture - Final Staphylococcus Epidermidis 05/23/17 08:30 Tracheal Aspirate Gram Stain - Final 05/23/17 08:30 Tracheal Aspirate Sputum Culture - Final Klebsiella Pneumoniae C.albicans/C.dubliniensis Greatly Reduced Normal Katya Impressions: Abdomen/Pelvis CT 05/20/17 00:00 IMPRESSION: Small 2 cm left renal mass with apparent rim calcification. If clinically warranted CT with IV contrast may be of value for further evaluation. Small bilateral adrenal nodules which appears stable when correlated with the previous study. Other findings as noted above Chest CT 05/20/17 00:00 IMPRESSION: Tiny bilateral pleural effusions are identified with associated predominately basilar airspace consolidation most consistent with atelectatic changes although I cannot exclude pneumonic consolidations. Tracheostomy tube and NG tube are identified in position. Other findings as noted above Chest X-Ray 05/27/17 06:00 IMPRESSION: Cardiomegaly. Bibasilar discoid atelectasis with bilateral pleural thickening or effusions. No significant change. Assessment & Plan - Diagnosis (1) Acute airway obstruction Is this a current diagnosis for this admission?: Yes Plan: Status post tracheostomy. The patient is doing well. I am going to consult speech therapy to evaluate the patient's swallowing. Hopefully he can start a diet and swallow his medications. He really does not want to have the NG tube placed. (2) Acute respiratory failure Qualifiers: Respiratory failure complication: hypoxia and hypercapnia Qualified Code(s) : J96.01 - Acute respiratory failure with hypoxia; J96.02 - Acute respiratory failure with hypercapnia; J96.02 - Acute respiratory failure with hypercapnia; J96.02 - Acute respiratory failure with hypercapnia Is this a current diagnosis for this admission?: Yes Plan: The patient is only on the ventilator at night. His acute respiratory failure is improving. His respiratory failure was multifactorial secondary to acute airway obstruction from angioedema as well as pneumonia. (3) HAP (hospital-acquired pneumonia) Is this a current diagnosis for this admission?: Yes Plan: Concerns for gram negatives and MRSA. He will continue IV cefepime and Levaquin. (4) Angioedema Qualifiers: Encounter type: subsequent encounter Qualified Code(s): T78.3XXD - Angioneurotic edema, subsequent encounter Is this a current diagnosis for this admission?: Yes Plan: Resolved (5) Congestive heart failure Is this a current diagnosis for this admission?: Yes Plan: The patient has diastolic congestive heart failure. Currently appears to be fairly euvolemic. (6) GRACY (obstructive sleep apnea) Is this a current diagnosis for this admission?: Yes Plan: He is requiring ventilation at night. (7) COPD (chronic obstructive pulmonary disease) Qualifiers: COPD type: unspecified COPD Qualified Code(s): J44.9 - Chronic obstructive pulmonary disease, unspecified Is this a current diagnosis for this admission?: Yes Plan: No evidence of exacerbation (8) Anemia Is this a current diagnosis for this admission?: Yes Plan: This is an anemia of chronic disease and is stable (9) Hypokalemia Is this a current diagnosis for this admission?: Yes Plan: Resolved (10) Hyponatremia Is this a current diagnosis for this admission?: Yes Plan: Resolved (11) Thrombocytopenia Is this a current diagnosis for this admission?: Yes Plan: Resolved (12) Full code status Is this a current diagnosis for this admission?: Yes - Time Time Spent with patient: 25-34 minutes - Inpatient Certification Medical Necessity: Need Close Monitoring Due to Risk of Patient Decompensation - Inpatient hospitalization remains necessary. The patient will be transitioned out of the ICU today. Needs evaluation by speech therapy. We need to see if the patient can swallow and maintain his hydration and nutrition. Timing of disposition will be determined by his clinical course, Need for IV Antibiotics, Other
[2017-05-27] MEDS: NORMAL SALINE 1000 ML 1,000 ML IV PRN (13:11)
[2017-05-27] MEDS: METOPROLOL TARTRATE 25 MG TABLET NG SCH ×2 (14:45→23:06)
[2017-05-27] MEDS: RISPERIDONE 0.5 MG TAB.RAPDIS NG SCH (23:02)
[2017-05-27 23:19] LABS: APPEARANCE,URINE SLIGHTLY-CLOUDY; BILIRUBIN,URINE NEGATIVE (NEGATIVE); GLUCOSE, URINE >=500 mg/dL (NEGATIVE); KETONES,URINE NEGATIVE (NEGATIVE); LEUKOCYTE ESTERASE,URINE NEGATIVE (NEGATIVE); NITRITE,URINE NEGATIVE (NEGATIVE); PROTEIN,URINE 100 mg/dL (NEGATIVE); URINE SPECIFIC GRAVITY 1.024
[2017-05-27 23:22] LABS: COLOR,URINE YELLOW
[2017-05-28] MEDS: CEFEPIME HCL 2 GM in DEXTROSE 5%-WATER 50 ML IV SCH ×3 (00:02→22:24)
[2017-05-28] MEDS: INSULIN LISPRO 100 UNIT/ML 3 ML VIAL SUBCUT PRN ×4 (00:42→18:22)
[2017-05-28] MEDS: IPRATROPIUM/ALBUTEROL 0.5-2.5 MG/3 ML AMPUL NEB SCH ×4 (02:22→20:39)
[2017-05-28] MEDS: FENTANYL CITRATE INJ/PF 100 MCG/2 ML AMPUL IV PRN ×3 (04:07→20:28)
[2017-05-28] MEDS: DIAZEPAM INJ 10 MG/2 ML DISP.SYRIN IV PRN (05:04)
[2017-05-28 06:04] LABS: ABSOLUTE EOSINOPHILS # (AUTO) 0.1 10^3/uL (0.0-0.6); ABSOLUTE LYMPHOCYTES (AUTO) 1.3 10^3/uL (0.5-4.7); ABSOLUTE MONOCYTES (AUTO) 0.8 10^3/uL (0.1-1.4); ABSOLUTE NEUT (AUTO) 5.5 10^3/uL (1.7-8.2); BASOPHILS % (AUTO) 0.2 % (0-2); EOSINOPHILS % (AUTO) 1.2 % (0-6); HEMATOCRIT 35.8 % (37.9-51.0); HEMOGLOBIN 11.8 g/dL (13.5-17.0); LYMPHOCYTES % (AUTO) 16.5 % (13-45); MEAN CORPUSCULAR HEMOGLOBIN 29.1 pg (27.0-33.4); MEAN CORPUSCULAR VOLUME 88 fl (80-97); MONOCYTES % (AUTO) 10.1 % (3-13); PLATELET COUNT 168 10^3/uL (150-450); RED BLOOD COUNT 4.06 10^6/uL (4.35-5.55); RED CELL DISTRIBUTION WIDTH 14.1 % (11.5-14.0); TOTAL CELLS COUNTED % (AUTO) 100 %; WHITE BLOOD COUNT 7.6 10^3/uL (4.0-10.5)
[2017-05-28 06:25] LABS: ANION GAP 9 (5-19); BLOOD UREA NITROGEN 9 mg/dL (7-20); CALCIUM 8.9 mg/dL (8.4-10.2); CARBON DIOXIDE 29 mmol/L (22-30); CHLORIDE 101 mmol/L (98-107); GLUCOSE 313 mg/dL (75-110); POTASSIUM 4.1 mmol/L (3.6-5.0); SODIUM 139.3 mmol/L (137-145)
[2017-05-28 06:49] LABS: ARTERIAL BLOOD H2CO3 1.23 mmol/L (1.05-1.35); ARTERIAL BLOOD HCO3 26.4 mmol/L (20-26); ARTERIAL BLOOD O2 SATURATION 98.4 % (94-98); ARTERIAL BLOOD PCO2 40.7 mmHg (35-45); ARTERIAL BLOOD PH 7.43 (7.35-7.45); ARTERIAL BLOOD PO2 118.6 mmHg (80-100); ARTERIAL BLOOD TOTAL CO2 27.7 mmol/L (23-27)
[2017-05-28 06:50] LABS: ARTERIAL BLOOD FIO2 40%
[2017-05-28] MEDS ORDERED: GLUCAGON,HUMAN RECOMB 1 MG INJ IM PRN (07:49)
[2017-05-28] MEDS ORDERED: DEXTROSE 50%-WATER 25 GM/50 ML DISP.SYRIN IV PRN ×2 (07:49)
[2017-05-28] MEDS ORDERED: DEXTROSE 40% GEL 15 GM TUBE PO PRN ×2 (07:49)
[2017-05-28] MEDS: ENOXAPARIN SODIUM INJ 150 MG/1 ML DISP.SYRIN SUBCUT SCH ×2 (09:19→22:24)
[2017-05-28] MEDS: BUDESONIDE/FORMOTEROL 160-4.5 MCG 60 PUFF/6 GM MDI IH SCH ×2 (09:19→22:23)
[2017-05-28] MEDS: INSULIN GLARGINE,HUM.REC.ANLOG 300 UNIT/3 ML INSULN.PEN SUBCUT SCH (09:19)
[2017-05-28] MEDS: CLONIDINE 0.1 MG/24 HR PATCH.TDWK TD SCH (09:23)
[2017-05-28] MEDS: RISPERIDONE 0.5 MG TAB.RAPDIS NG SCH ×2 (09:25→22:24)
[2017-05-28] MEDS: METOPROLOL TARTRATE 25 MG TABLET NG SCH ×2 (09:25→22:24)
[2017-05-28] MEDS: FLUTICASONE NASAL SPRAY 50 MCG/SPRY 120 SPRAY/16 GM NASL SCH (09:26)
[2017-05-28] MEDS: FAMOTIDINE INJ/PF 20 MG/2 ML SDV IV SCH ×2 (09:26→22:24)
[2017-05-28] MEDS: LEVOFLOXACIN 750 MG/D5W RTU 750 MG/150 ML RTUPB IV SCH (10:24)
--- NOTE | 2017-05-28 13:19 | PDOC PROGRESS REPORT ---
Subjective Progress Note for:: 05/28/17 Subjective:: The patient was transitioned out of the ICU yesterday. He was evaluated by speech therapy and was cleared for a diet. Overall he is improving. There are some concerns by the nursing staff that the patient may be developing some infection around his trach site. Dr. Humphries from pulmonology looked at it today and gave the nurses some instructions to clean it. Overall the patient states that he is feeling better. It is difficult to communicate with him. He does not yet have a PMV. Speech therapy is going to start working with him. Reason For Visit: ANGIOEDEMA, RESPIRATORY FAILURE Physical Exam Vital Signs: Temp Pulse Resp BP Pulse Ox 98.3 F 94 18 128/98 H 100 05/28/17 11:08 05/28/17 11:08 05/28/17 11:08 05/28/17 11:08 05/28/17 11:08 Intake & Output 05/27/17 05/28/17 05/29/17 06:59 06:59 06:59 Intake Total 2105 1729 Output Total 1600 875 Balance 505 854 Weight 130.3 kg 127.6 kg General appearance: PRESENT: no acute distress, well-developed, well-nourished, other Head exam: PRESENT: atraumatic - He has a tracheostomy in place and seems to be doing fairly well, normocephalic Ear exam: PRESENT: normal external ear exam Neck exam: PRESENT: tracheostomy, other - He does have some purulent looking material draining from his trach. Respiratory exam: PRESENT: clear to auscultation angelina. ABSENT: rales, rhonchi, wheezes Cardiovascular exam: PRESENT: RRR. ABSENT: diastolic murmur, rubs, systolic murmur GI/Abdominal exam: PRESENT: normal bowel sounds, soft. ABSENT: distended, guarding, mass, organolmegaly, rebound, tenderness Rectal exam: PRESENT: deferred Extremities exam: PRESENT: full ROM. ABSENT: calf tenderness, clubbing, pedal edema Neurological exam: PRESENT: alert, awake, oriented to person, oriented to place , oriented to time, oriented to situation, CN II-XII grossly intact. ABSENT: motor sensory deficit Skin exam: PRESENT: dry, intact, warm. ABSENT: cyanosis, rash Results Laboratory Results: 05/28/17 05:28 05/28/17 05:28 05/27/17 05/28/17 05/28/17 22:30 05:28 05:28 WBC 7.6 RBC 4.06 L Hgb 11.8 L Hct 35.8 L MCV 88 MCH 29.1 MCHC 33.0 RDW 14.1 H Plt Count 168 Seg Neutrophils % 72.0 Lymphocytes % 16.5 Monocytes % 10.1 Eosinophils % 1.2 Basophils % 0.2 Absolute Neutrophils 5.5 Absolute Lymphocytes 1.3 Absolute Monocytes 0.8 Absolute Eosinophils 0.1 Absolute Basophils 0.0 Carbonic Acid HCO3/H2CO3 Ratio ABG pH ABG pCO2 ABG pO2 ABG HCO3 ABG O2 Saturation ABG Base Excess FiO2 Sodium 139.3 Potassium 4.1 Chloride 101 Carbon Dioxide 29 Anion Gap 9 BUN 9 Creatinine 0.56 Est GFR ( Amer) > 60 Est GFR (Non-Af Amer) > 60 Glucose 313 H Calcium 8.9 Urine Color YELLOW Urine Appearance SLIGHTLY-CLOUDY Urine pH 6.0 Ur Specific [place] 1.024 Urine Protein 100 H Urine Glucose (UA) >=500 H Urine Ketones NEGATIVE Urine Blood LARGE H Urine Nitrite NEGATIVE Ur Leukocyte Esterase NEGATIVE Urine WBC (Auto) 39 Urine RBC (Auto) >182 05/28/17 06:25 WBC RBC Hgb Hct MCV MCH MCHC RDW Plt Count Seg Neutrophils % Lymphocytes % Monocytes % Eosinophils % Basophils % Absolute Neutrophils Absolute Lymphocytes Absolute Monocytes Absolute Eosinophils Absolute Basophils Carbonic Acid 1.23 HCO3/H2CO3 Ratio 21:1 ABG pH 7.43 ABG pCO2 40.7 ABG pO2 118.6 H ABG HCO3 26.4 H ABG O2 Saturation 98.4 H ABG Base Excess 2.0 FiO2 40% Sodium Potassium Chloride Carbon Dioxide Anion Gap BUN Creatinine Est GFR ( Amer) Est GFR (Non-Af Amer) Glucose Calcium Urine Color Urine Appearance Urine pH Ur Specific [place] Urine Protein Urine Glucose (UA) Urine Ketones Urine Blood Urine Nitrite Ur Leukocyte Esterase Urine WBC (Auto) Urine RBC (Auto) Impressions: Abdomen/Pelvis CT 05/20/17 00:00 IMPRESSION: Small 2 cm left renal mass with apparent rim calcification. If clinically warranted CT with IV contrast may be of value for further evaluation. Small bilateral adrenal nodules which appears stable when correlated with the previous study. Other findings as noted above Chest CT 05/20/17 00:00 IMPRESSION: Tiny bilateral pleural effusions are identified with associated predominately basilar airspace consolidation most consistent with atelectatic changes although I cannot exclude pneumonic consolidations. Tracheostomy tube and NG tube are identified in position. Other findings as noted above Chest X-Ray 05/27/17 06:00 IMPRESSION: Cardiomegaly. Bibasilar discoid atelectasis with bilateral pleural thickening or effusions. No significant change. Assessment & Plan - Diagnosis (1) Acute airway obstruction Is this a current diagnosis for this admission?: Yes Plan: Status post tracheostomy. The patient is doing well. He was transitioned out of the ICU yesterday. He has been seen by speech therapy and cleared for a diet. Overall he is doing quite well. They are going to try to get him a PMV today and start working with him. He does have some drainage from his trach site. He is on good antibiotics although he does not have any MRSA coverage at this point. We will see what it does over night. He does not have a white count or fever. (2) Acute respiratory failure Qualifiers: Respiratory failure complication: hypoxia and hypercapnia Qualified Code(s) : J96.01 - Acute respiratory failure with hypoxia; J96.02 - Acute respiratory failure with hypercapnia; J96.02 - Acute respiratory failure with hypercapnia; J96.02 - Acute respiratory failure with hypercapnia Is this a current diagnosis for this admission?: Yes Plan: The patient is only on the ventilator at night. His acute respiratory failure is improving. His respiratory failure was multifactorial secondary to acute airway obstruction from angioedema as well as pneumonia. (3) HAP (hospital-acquired pneumonia) Is this a current diagnosis for this admission?: Yes Plan: Concerns for gram negatives and MRSA. He will continue IV cefepime and Levaquin. (4) Angioedema Qualifiers: Encounter type: subsequent encounter Qualified Code(s): T78.3XXD - Angioneurotic edema, subsequent encounter Is this a current diagnosis for this admission?: Yes Plan: Resolved (5) Congestive heart failure Is this a current diagnosis for this admission?: Yes Plan: The patient has diastolic congestive heart failure. Currently appears to be fairly euvolemic. (6) GRACY (obstructive sleep apnea) Is this a current diagnosis for this admission?: Yes Plan: He is requiring ventilation at night. (7) COPD (chronic obstructive pulmonary disease) Qualifiers: COPD type: unspecified COPD Qualified Code(s): J44.9 - Chronic obstructive pulmonary disease, unspecified Is this a current diagnosis for this admission?: Yes Plan: No evidence of exacerbation (8) Anemia Is this a current diagnosis for this admission?: Yes Plan: This is an anemia of chronic disease and is stable (9) Hypokalemia Is this a current diagnosis for this admission?: Yes Plan: Resolved (10) Hyponatremia Is this a current diagnosis for this admission?: Yes Plan: Resolved (11) Thrombocytopenia Is this a current diagnosis for this admission?: Yes Plan: Resolved (12) Full code status Is this a current diagnosis for this admission?: Yes - Time Time Spent with patient: 15-24 minutes - Inpatient Certification Medical Necessity: Need Close Monitoring Due to Risk of Patient Decompensation, Need for IV Antibiotics, Risk of Complication if Not Cared For in Hospital - Inpatient hospitalization remains necessary. The patient has just come out of the ICU. Discharge planning is on the case trying to make outpatient arrangements for the patient. At this point he has drainage coming from his trach. He needs further work with speech therapy and he needs continued parenteral antibiotics. Overall he is improving. Timing of disposition will be determined by his clinical course, Other
[2017-05-28] MEDS: NORMAL SALINE 1000 ML 1,000 ML IV PRN (13:25)
--- NOTE | 2017-05-28 19:51 | PDOC PROGRESS REPORT ---
Subjective Progress Note for:: 05/27/17 Subjective:: Patient was extubated yesterday and was on tracheal collar. Today he got transferred to the floor. Currently doing better. Patient aberrantly pulled his NG tube. He is due to have a swallowing evaluation. Medications reviewed. Reason For Visit: ANGIOEDEMA, RESPIRATORY FAILURE Physical Exam Vital Signs: Temp Pulse Resp BP Pulse Ox 99.5 F 97 20 127/65 H 100 05/27/17 16:59 05/27/17 16:59 05/27/17 16:59 05/27/17 16:59 05/27/17 16:59 Intake & Output 05/26/17 05/27/17 05/28/17 06:59 06:59 06:59 Intake Total 2661 2105 700 Output Total 2270 1600 725 Balance 391 505 -25 Weight 131.7 kg 130.3 kg Exam: GENERAL: well-nourished and in no acute distress. Patient responding to verbal commands. Orientation could not be checked as patient cannot verbalize due to tracheostomy. HEAD: Atraumatic, normocephalic. EYES: Pupils equal round and reactive to light, extraocular movements could not be checked, sclera anicteric, conjunctiva are normal. ENT: TMs normal, nares patent, oropharynx clear without exudates. Moist mucous membranes. No oral ulcerations or bleeding gums noted NECK: supple without lymphadenopathy or JVD. Tracheostomy noted patient has trach collar on.. No cervical or axillary lymphadenopathy noted. Carotids are 2+ LUNGS: Breath sounds mostly clear to auscultation patient is noted to have bibasal crackles at the extreme bases CHEST: Palpation of the chest wall shows no significant chest wall tenderness or abnormalities. 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 ABDOMEN: Soft, no significant tenderness appreciated, normoactive bowel sounds. No guarding, no rebound. No rigidity noted . No masses appreciated. EXTREMITIES: Pedal pulses are 1-2+, no calf tenderness noted, 1+ pedal edema noted. No clubbing or cyanosis. NEUROLOGICAL: The patient noted to have no facial asymmetry and is able to move all 4 extremities. A full neurological exam was however not performed. PSYCH: This cannot be evaluated. Patient cannot participate. SKIN: No significant ecchymosis, rash, or signs of pruritus noted. MUSCULOSKELETAL EXAM: No significant joint swelling noted. Patient noted to move all 4 extremities. Results Laboratory Results: 05/27/17 05:10 05/27/17 05:10 05/27/17 05/27/17 05/27/17 05:10 05:10 05:10 WBC 7.3 RBC 4.00 L Hgb 11.7 L Hct 35.4 L MCV 88 MCH 29.2 MCHC 33.0 RDW 13.9 Plt Count 163 Seg Neutrophils % 70.2 Lymphocytes % 16.1 Monocytes % 11.7 Eosinophils % 1.7 Basophils % 0.3 Absolute Neutrophils 5.1 Absolute Lymphocytes 1.2 Absolute Monocytes 0.9 Absolute Eosinophils 0.1 Absolute Basophils 0.0 Carbonic Acid HCO3/H2CO3 Ratio ABG pH ABG pCO2 ABG pO2 ABG HCO3 ABG O2 Saturation ABG Base Excess FiO2 Sodium 142.2 Potassium 3.6 Chloride 103 Carbon Dioxide 30 Anion Gap 9 BUN 7 Creatinine 0.51 L Est GFR ( Amer) > 60 Est GFR (Non-Af Amer) > 60 Glucose 213 H Calcium 8.7 Magnesium 1.9 Cancelled 05/27/17 06:25 WBC RBC Hgb Hct MCV MCH MCHC RDW Plt Count Seg Neutrophils % Lymphocytes % Monocytes % Eosinophils % Basophils % Absolute Neutrophils Absolute Lymphocytes Absolute Monocytes Absolute Eosinophils Absolute Basophils Carbonic Acid 1.44 H HCO3/H2CO3 Ratio 20:1 ABG pH 7.41 ABG pCO2 47.9 H ABG pO2 49.5 L ABG HCO3 29.5 H ABG O2 Saturation 84.9 L ABG Base Excess 4.0 FiO2 40% Sodium Potassium Chloride Carbon Dioxide Anion Gap BUN Creatinine Est GFR ( Amer) Est GFR (Non-Af Amer) Glucose Calcium Magnesium EKG Comments: Telemetry shows sinus rhythm with mild intermittent sinus tachycardia. Impressions: Abdomen/Pelvis CT 05/20/17 00:00 IMPRESSION: Small 2 cm left renal mass with apparent rim calcification. If clinically warranted CT with IV contrast may be of value for further evaluation. Small bilateral adrenal nodules which appears stable when correlated with the previous study. Other findings as noted above Chest CT 05/20/17 00:00 IMPRESSION: Tiny bilateral pleural effusions are identified with associated predominately basilar airspace consolidation most consistent with atelectatic changes although I cannot exclude pneumonic consolidations. Tracheostomy tube and NG tube are identified in position. Other findings as noted above Chest X-Ray 05/27/17 06:00 IMPRESSION: Cardiomegaly. Bibasilar discoid atelectasis with bilateral pleural thickening or effusions. No significant change. Assessment & Plan - Diagnosis (1) Acute airway obstruction Is this a current diagnosis for this admission?: Yes (2) Angioedema Qualifiers: Encounter type: subsequent encounter Qualified Code(s): T78.3XXD - Angioneurotic edema, subsequent encounter Is this a current diagnosis for this admission?: Yes (3) GRACY (obstructive sleep apnea) Is this a current diagnosis for this admission?: Yes (4) COPD (chronic obstructive pulmonary disease) Qualifiers: COPD type: unspecified COPD Qualified Code(s): J44.9 - Chronic obstructive pulmonary disease, unspecified Is this a current diagnosis for this admission?: Yes (5) Diabetes Qualifiers: Diabetes mellitus type: type 2 Diabetes mellitus complication status: with diabetic arthropathy Diabetes mellitus complication detail: with other arthropathy 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 use Qualified Code(s): E11.618 - Type 2 diabetes mellitus with other diabetic arthropathy; Z79.4 - senior care (current) use of insulin; Z79.4 - termite helper ( current) use of insulin; Z79.4 - termite helper (current) use of insulin; Z79.4 - termite helper (current) use of insulin Is this a current diagnosis for this admission?: Yes (6) Hypertension Qualifiers: Hypertension type: essential hypertension Qualified Code(s): I10 - Essential (primary) hypertension Is this a current diagnosis for this admission?: Yes (7) Drug abuse Is this a current diagnosis for this admission?: Yes (8) Atelectasis, left Is this a current diagnosis for this admission?: Yes - Notes Notes: Patient seems to be improving from angioedema. He is mentally much improved. His other conditions are stabilizing. Currently he is able to move all 4 of his extremities quite vigorously. Speech therapy to see him for swallowing and speech evaluation. He is following commands. At this point he remains intermittently tachycardic. But otherwise stable. - Time Time with patient: 15-25 minutes - CODE STATUS was discussed, patient remains full code. Surrogate decision-maker unchanged. Multiple medical problems were addressed. More than 50% of the time spent coordinating care, discussing management plans with involved caregivers. Management plans discussed with involved personnels. Medical decision making was of moderate to high complexity , patient's has multiple comorbidities. Medications reviewed and adjusted accordingly: Yes
--- NOTE | 2017-05-28 19:54 | PDOC PROGRESS REPORT ---
Subjective Progress Note for:: 05/28/17 Subjective:: Is still on trach collar. However following commands and able to cooperate. Currently doing better. He is due to have a swallowing evaluation. Patient to be followed also by speech therapy and physical therapy. Medications reviewed. Telemetry strip shows mild intermittent sinus tachycardia but no other sustained tachycardia or bradycardia arrhythmias noted. Reason For Visit: ANGIOEDEMA, RESPIRATORY FAILURE Physical Exam Vital Signs: Temp Pulse Resp BP Pulse Ox 99.7 F 101 H 20 134/74 H 100 05/28/17 15:19 05/28/17 15:19 05/28/17 15:19 05/28/17 15:19 05/28/17 15:19 Intake & Output 05/27/17 05/28/17 05/29/17 06:59 06:59 06:59 Intake Total 2105 1729 1671 Output Total 4788 049 3758 Balance 505 854 371 Weight 130.3 kg 127.6 kg Exam: GENERAL: well-nourished and in no acute distress. Alert and seems to be with the surroundings. HEAD: Atraumatic, normocephalic. EYES: Pupils equal round and reactive to light, extraocular movements intact, sclera anicteric, conjunctiva are normal. ENT: TMs normal, nares patent, oropharynx clear without exudates. Moist mucous membranes. No oral ulcerations or bleeding gums noted NECK: supple without lymphadenopathy. Trachea is central with tracheostomy. No cervical or axillary lymphadenopathy noted. Carotids are 2+, JVD WNL LUNGS: Respiration seems nonlabored, no significant accessory muscle action noted. Breath sounds clear to auscultation bilaterally and equal noted. No wheezes rales or rhonchi noted. No significant dullness noted on percussion. CHEST: Palpation of the chest wall shows no significant chest wall tenderness. No other significant abnormalities noted. 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 ABDOMEN: Soft, no significant tenderness appreciated, normoactive bowel sounds. No guarding, no rebound. No rigidity noted . No masses appreciated. EXTREMITIES: Pedal pulses are 1-2+, no calf tenderness noted. No clubbing or cyanosis.trace to 1+ pedal edema noted NEUROLOGICAL: Focused neurological exam showed no significant neurologic deficit. His speech not checked due to tracheostomy, no focal weakness appreciated. PSYCH: Normal mood, normal affect. Judgment could not be checked. SKIN: No significant ecchymosis, rash, ulcerations or signs of pruritus noted. MUSCULOSKELETAL EXAM: No significant joint swelling noted. Results Laboratory Results: 05/28/17 05:28 05/28/17 05:28 05/27/17 05/28/17 05/28/17 22:30 05:28 05:28 WBC 7.6 RBC 4.06 L Hgb 11.8 L Hct 35.8 L MCV 88 MCH 29.1 MCHC 33.0 RDW 14.1 H Plt Count 168 Seg Neutrophils % 72.0 Lymphocytes % 16.5 Monocytes % 10.1 Eosinophils % 1.2 Basophils % 0.2 Absolute Neutrophils 5.5 Absolute Lymphocytes 1.3 Absolute Monocytes 0.8 Absolute Eosinophils 0.1 Absolute Basophils 0.0 Carbonic Acid HCO3/H2CO3 Ratio ABG pH ABG pCO2 ABG pO2 ABG HCO3 ABG O2 Saturation ABG Base Excess FiO2 Sodium 139.3 Potassium 4.1 Chloride 101 Carbon Dioxide 29 Anion Gap 9 BUN 9 Creatinine 0.56 Est GFR ( Amer) > 60 Est GFR (Non-Af Amer) > 60 Glucose 313 H Calcium 8.9 Urine Color YELLOW Urine Appearance SLIGHTLY-CLOUDY Urine pH 6.0 Ur Specific [place] 1.024 Urine Protein 100 H Urine Glucose (UA) >=500 H Urine Ketones NEGATIVE Urine Blood LARGE H Urine Nitrite NEGATIVE Ur Leukocyte Esterase NEGATIVE Urine WBC (Auto) 39 Urine RBC (Auto) >182 05/28/17 06:25 WBC RBC Hgb Hct MCV MCH MCHC RDW Plt Count Seg Neutrophils % Lymphocytes % Monocytes % Eosinophils % Basophils % Absolute Neutrophils Absolute Lymphocytes Absolute Monocytes Absolute Eosinophils Absolute Basophils Carbonic Acid 1.23 HCO3/H2CO3 Ratio 21:1 ABG pH 7.43 ABG pCO2 40.7 ABG pO2 118.6 H ABG HCO3 26.4 H ABG O2 Saturation 98.4 H ABG Base Excess 2.0 FiO2 40% Sodium Potassium Chloride Carbon Dioxide Anion Gap BUN Creatinine Est GFR ( Amer) Est GFR (Non-Af Amer) Glucose Calcium Urine Color Urine Appearance Urine pH Ur Specific [place] Urine Protein Urine Glucose (UA) Urine Ketones Urine Blood Urine Nitrite Ur Leukocyte Esterase Urine WBC (Auto) Urine RBC (Auto) 05/23/17 14:45 Blood Blood Culture - Final NO GROWTH IN 5 DAYS Impressions: Abdomen/Pelvis CT 05/20/17 00:00 IMPRESSION: Small 2 cm left renal mass with apparent rim calcification. If clinically warranted CT with IV contrast may be of value for further evaluation. Small bilateral adrenal nodules which appears stable when correlated with the previous study. Other findings as noted above Chest CT 05/20/17 00:00 IMPRESSION: Tiny bilateral pleural effusions are identified with associated predominately basilar airspace consolidation most consistent with atelectatic changes although I cannot exclude pneumonic consolidations. Tracheostomy tube and NG tube are identified in position. Other findings as noted above Chest X-Ray 05/27/17 06:00 IMPRESSION: Cardiomegaly. Bibasilar discoid atelectasis with bilateral pleural thickening or effusions. No significant change. Assessment & Plan - Diagnosis (1) Acute airway obstruction Is this a current diagnosis for this admission?: Yes (2) Angioedema Qualifiers: Encounter type: subsequent encounter Qualified Code(s): T78.3XXD - Angioneurotic edema, subsequent encounter Is this a current diagnosis for this admission?: Yes (3) GRACY (obstructive sleep apnea) Is this a current diagnosis for this admission?: Yes (4) COPD (chronic obstructive pulmonary disease) Qualifiers: COPD type: unspecified COPD Qualified Code(s): J44.9 - Chronic obstructive pulmonary disease, unspecified Is this a current diagnosis for this admission?: Yes (5) Diabetes Qualifiers: Diabetes mellitus type: type 2 Diabetes mellitus complication status: with diabetic arthropathy Diabetes mellitus complication detail: with other arthropathy Diabetes mellitus fdc insulin use: with fdc use Qualified Code(s): E11.618 - Type 2 diabetes mellitus with other diabetic arthropathy; Z79.4 - [facility] (current) use of insulin; 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 Patient and family was told that he could be allergic to impurities from street drugs causing angioedema. He was told to stay away from it. Patient noted to be generally stable from cardiac standpoint. At this point will sign off. Please reconsult if needed. - Time Time with patient: 15-25 minutes - CODE STATUS was discussed, patient remains full code. Surrogate decision-maker unchanged. Multiple medical problems were addressed. More than 50% of the time spent coordinating care, discussing management plans with involved caregivers. Management plans discussed with involved personnels. Medical decision making was of moderate to high complexity , patient's has multiple comorbidities. Medications reviewed and adjusted accordingly: Yes
[2017-05-29] MEDS: DIPHENHYDRAMINE HCL 50 MG/ML VIAL IV PRN (01:47)
[2017-05-29] MEDS: IPRATROPIUM/ALBUTEROL 0.5-2.5 MG/3 ML AMPUL NEB SCH ×4 (02:16→20:19)
[2017-05-29 06:42] LABS: ANION GAP 10 (5-19); BLOOD UREA NITROGEN 6 mg/dL (7-20); CALCIUM 9.1 mg/dL (8.4-10.2); CARBON DIOXIDE 28 mmol/L (22-30); CHLORIDE 101 mmol/L (98-107); GLUCOSE 257 mg/dL (75-110); POTASSIUM 3.8 mmol/L (3.6-5.0); SODIUM 138.5 mmol/L (137-145)
[2017-05-29 07:06] LABS: ABSOLUTE EOSINOPHILS # (AUTO) 0.1 10^3/uL (0.0-0.6); ABSOLUTE LYMPHOCYTES (AUTO) 1.5 10^3/uL (0.5-4.7); ABSOLUTE MONOCYTES (AUTO) 0.9 10^3/uL (0.1-1.4); ABSOLUTE NEUT (AUTO) 6.8 10^3/uL (1.7-8.2); BASOPHILS % (AUTO) 0.3 % (0-2); HEMATOCRIT 35.9 % (37.9-51.0); LYMPHOCYTES % (AUTO) 16.5 % (13-45); MEAN CORPUSCULAR HEMOGLOBIN 29.6 pg (27.0-33.4); MEAN CORPUSCULAR HGB CONC 33.4 g/dL (32.0-36.0); MEAN CORPUSCULAR VOLUME 88 fl (80-97); MONOCYTES % (AUTO) 9.8 % (3-13); PLATELET COUNT 187 10^3/uL (150-450); RED BLOOD COUNT 4.06 10^6/uL (4.35-5.55); RED CELL DISTRIBUTION WIDTH 13.9 % (11.5-14.0); SEGMENTED NEUTROPHILS % (AUTO) 72.4 % (42-78); TOTAL CELLS COUNTED % (AUTO) 100 %; WHITE BLOOD COUNT 9.4 10^3/uL (4.0-10.5)
[2017-05-29] MEDS: NORMAL SALINE 1000 ML 1,000 ML IV PRN (07:58)
[2017-05-29] MEDS: INSULIN LISPRO 100 UNIT/ML 3 ML VIAL SUBCUT PRN ×4 (08:27→22:29)
[2017-05-29] MEDS: METOPROLOL TARTRATE 25 MG TABLET NG SCH ×2 (09:56→21:16)
[2017-05-29] MEDS: FLUTICASONE NASAL SPRAY 50 MCG/SPRY 120 SPRAY/16 GM NASL SCH (09:57)
[2017-05-29] MEDS: BUDESONIDE/FORMOTEROL 160-4.5 MCG 60 PUFF/6 GM MDI IH SCH ×2 (09:58→21:15)
[2017-05-29] MEDS: FAMOTIDINE INJ/PF 20 MG/2 ML SDV IV SCH ×2 (09:59→21:15)
[2017-05-29] MEDS: CEFEPIME HCL 2 GM in DEXTROSE 5%-WATER 50 ML IV SCH (09:59)
[2017-05-29] MEDS: INSULIN GLARGINE,HUM.REC.ANLOG 300 UNIT/3 ML INSULN.PEN SUBCUT SCH (10:06)
[2017-05-29] MEDS: ENOXAPARIN SODIUM INJ 150 MG/1 ML DISP.SYRIN SUBCUT SCH ×2 (10:07→21:16)
[2017-05-29] MEDS: RISPERIDONE 0.5 MG TAB.RAPDIS NG SCH ×2 (10:08→21:16)
[2017-05-29] MEDS: LEVOFLOXACIN 750 MG/D5W RTU 750 MG/150 ML RTUPB IV SCH (11:27)
[2017-05-29] MEDS: FENTANYL CITRATE INJ/PF 100 MCG/2 ML AMPUL IV PRN ×3 (11:27→21:16)
--- NOTE | 2017-05-29 13:07 | PDOC PROGRESS REPORT ---
Subjective Progress Note for:: 05/29/17 Subjective:: Is still on trach collar. However following commands and able to cooperate. Currently doing better. Patient answers question appropriately and seems alert oriented 3. Patient on questioning nods negative to any chest pain, shortness of breath. Medications reviewed. Telemetry strip shows mild intermittent sinus tachycardia but no other sustained tachycardia or bradycardia arrhythmias noted. Reason For Visit: ANGIOEDEMA, RESPIRATORY FAILURE Physical Exam Vital Signs: Temp Pulse Resp BP Pulse Ox 98.3 F 92 20 147/101 H 100 05/29/17 11:57 05/29/17 11:57 05/29/17 11:57 05/29/17 11:57 05/29/17 11:57 Intake & Output 05/28/17 05/29/17 05/30/17 06:59 06:59 06:59 Intake Total 1729 3321 474 Output Total 875 1675 725 Balance 854 1646 -251 Weight 127.6 kg 117.8 kg Exam: GENERAL: well-nourished and in no acute distress. Alert and oriented x3 HEAD: Atraumatic, normocephalic. EYES: Pupils equal round and reactive to light, extraocular movements intact, sclera anicteric, conjunctiva are normal. ENT: TMs normal, nares patent, oropharynx clear without exudates. Moist mucous membranes. No oral ulcerations or bleeding gums noted NECK: supple without lymphadenopathy. Central tracheostomy noted no cervical or axillary lymphadenopathy noted. Carotids are 2+, JVD WNL LUNGS: Respiration seems nonlabored, no significant accessory muscle action noted. Breath sounds clear to auscultation bilaterally and equal noted. No wheezes rales or rhonchi noted. No significant dullness noted on percussion. CHEST: Palpation of the chest wall shows no significant chest wall tenderness. No other significant abnormalities noted. 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 ABDOMEN: Soft, no significant tenderness appreciated, normoactive bowel sounds. No guarding, no rebound. No rigidity noted . No masses appreciated. EXTREMITIES: Pedal pulses are 1-2+, no calf tenderness noted. No clubbing or cyanosis.trace pedal edema noted NEUROLOGICAL: Focused neurological exam showed no significant neurologic deficit. Speech could not be checked, no focal weakness appreciated. PSYCH: Normal mood, normal affect. Judgment and insight within normal limits. SKIN: No significant ecchymosis, rash, ulcerations or signs of pruritus noted. MUSCULOSKELETAL EXAM: No significant joint swelling noted. Results Laboratory Results: 05/29/17 05:30 05/29/17 05:30 05/29/17 05/29/17 05:30 05:30 WBC 9.4 RBC 4.06 L Hgb 12.0 L Hct 35.9 L MCV 88 MCH 29.6 MCHC 33.4 RDW 13.9 Plt Count 187 Seg Neutrophils % 72.4 Lymphocytes % 16.5 Monocytes % 9.8 Eosinophils % 1.0 Basophils % 0.3 Absolute Neutrophils 6.8 Absolute Lymphocytes 1.5 Absolute Monocytes 0.9 Absolute Eosinophils 0.1 Absolute Basophils 0.0 Sodium 138.5 Potassium 3.8 Chloride 101 Carbon Dioxide 28 Anion Gap 10 BUN 6 L Creatinine 0.55 Est GFR ( Amer) > 60 Est GFR (Non-Af Amer) > 60 Glucose 257 H Calcium 9.1 Magnesium 1.7 05/27/17 22:30 Clean Catch Midstream Urine Culture - Final NO GROWTH 2 DAYS 05/23/17 14:45 Blood Blood Culture - Final NO GROWTH IN 5 DAYS EKG Comments: Telemetry strip shows sinus rhythm without any sustained tacky or bradycardia arrhythmia. Impressions: Abdomen/Pelvis CT 05/20/17 00:00 IMPRESSION: Small 2 cm left renal mass with apparent rim calcification. If clinically warranted CT with IV contrast may be of value for further evaluation. Small bilateral adrenal nodules which appears stable when correlated with the previous study. Other findings as noted above Chest CT 05/20/17 00:00 IMPRESSION: Tiny bilateral pleural effusions are identified with associated predominately basilar airspace consolidation most consistent with atelectatic changes although I cannot exclude pneumonic consolidations. Tracheostomy tube and NG tube are identified in position. Other findings as noted above Chest X-Ray 05/27/17 06:00 IMPRESSION: Cardiomegaly. Bibasilar discoid atelectasis with bilateral pleural thickening or effusions. No significant change. Assessment & Plan - Diagnosis (1) Acute airway obstruction Is this a current diagnosis for this admission?: Yes (2) Angioedema Qualifiers: Encounter type: subsequent encounter Qualified Code(s): T78.3XXD - Angioneurotic edema, subsequent encounter Is this a current diagnosis for this admission?: Yes (3) GRACY (obstructive sleep apnea) Is this a current diagnosis for this admission?: Yes (4) COPD (chronic obstructive pulmonary disease) Qualifiers: COPD type: unspecified COPD Qualified Code(s): J44.9 - Chronic obstructive pulmonary disease, unspecified Is this a current diagnosis for this admission?: Yes (5) Diabetes Qualifiers: Diabetes mellitus type: type 2 Diabetes mellitus complication status: with diabetic arthropathy Diabetes mellitus complication detail: with other arthropathy Diabetes mellitus shelter insulin use: with director long term care use Qualified Code(s): E11.618 - Type 2 diabetes mellitus with other diabetic arthropathy; 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 Avoid SHAMA inhibitor or angiotensin receptor blockers. Sleep disorder with sleep apnea: Currently patient has tracheostomy therefore adequately treated. Once tracheostomy is closed, patient will need a sleep study. Coronary artery disease: Symptomatically stable. Will consider ischemia evaluation as an outpatient. Currently no manifestation of ongoing ischemia. - Time Time with patient: 15-25 minutes - CODE STATUS was discussed, patient remains full code. Surrogate decision-maker unchanged. Multiple medical problems were addressed. More than 50% of the time spent coordinating care, discussing management plans with involved caregivers. Management plans discussed with involved personnels. Medical decision making was of moderate to high complexity , patient's has multiple comorbidities. Medications reviewed and adjusted accordingly: Yes
[2017-05-29] MEDS: NORMAL SALINE INJ/PF 0.9% 10 ML SDV IV PRN ×2 (13:43→21:15)
--- NOTE | 2017-05-29 14:16 | PDOC PROGRESS REPORT ---
Subjective Progress Note for:: 05/29/17 Subjective:: Patient seen on rounds. He is sitting out of bed in the bedside chair. He has trach collar on. He is awake and alert, answering questions appropriately. He denies any chest pain or dyspnea. He denies any nausea, vomiting or abdominal pain. He has had no diarrhea. He denies any pain or arthralgias. Remaining review of systems are negative. Reason For Visit: ANGIOEDEMA, RESPIRATORY FAILURE Physical Exam Vital Signs: Temp Pulse Resp BP Pulse Ox 98.3 F 92 20 147/101 H 100 05/29/17 11:57 05/29/17 11:57 05/29/17 11:57 05/29/17 11:57 05/29/17 11:57 Intake & Output 05/28/17 05/29/17 05/30/17 06:59 06:59 06:59 Intake Total 1729 3321 474 Output Total 875 1675 725 Balance 854 1646 -251 Weight 127.6 kg 117.8 kg General appearance: PRESENT: no acute distress, obese Head exam: PRESENT: atraumatic, normocephalic Eye exam: PRESENT: conjunctiva pink, EOMI, PERRLA. ABSENT: scleral icterus Ear exam: PRESENT: normal external ear exam Mouth exam: PRESENT: moist, tongue midline Neck exam: ABSENT: carotid bruit, JVD, lymphadenopathy, thyromegaly Respiratory exam: PRESENT: clear to auscultation angelina, symmetrical, unlabored. ABSENT: rales, rhonchi, wheezes Cardiovascular exam: PRESENT: RRR. ABSENT: diastolic murmur, rubs, systolic murmur Pulses: PRESENT: normal carotid pulses, normal radial pulses Vascular exam: PRESENT: normal capillary refill GI/Abdominal exam: PRESENT: normal bowel sounds, soft. ABSENT: distended, guarding, mass, organolmegaly, rebound, tenderness Rectal exam: PRESENT: deferred Extremities exam: PRESENT: full ROM. ABSENT: calf tenderness, clubbing, pedal edema Musculoskeletal exam: PRESENT: ambulatory, full ROM Neurological exam: PRESENT: alert, awake, oriented to person, oriented to place , oriented to time, oriented to situation, CN II-XII grossly intact. ABSENT: motor sensory deficit Psychiatric exam: PRESENT: appropriate affect, normal mood. ABSENT: homicidal ideation, suicidal ideation Skin exam: PRESENT: dry, intact, warm. ABSENT: cyanosis, rash Results Laboratory Results: 05/29/17 05:30 05/29/17 05:30 05/29/17 05/29/17 05:30 05:30 WBC 9.4 RBC 4.06 L Hgb 12.0 L Hct 35.9 L MCV 88 MCH 29.6 MCHC 33.4 RDW 13.9 Plt Count 187 Seg Neutrophils % 72.4 Lymphocytes % 16.5 Monocytes % 9.8 Eosinophils % 1.0 Basophils % 0.3 Absolute Neutrophils 6.8 Absolute Lymphocytes 1.5 Absolute Monocytes 0.9 Absolute Eosinophils 0.1 Absolute Basophils 0.0 Sodium 138.5 Potassium 3.8 Chloride 101 Carbon Dioxide 28 Anion Gap 10 BUN 6 L Creatinine 0.55 Est GFR ( Amer) > 60 Est GFR (Non-Af Amer) > 60 Glucose 257 H Calcium 9.1 Magnesium 1.7 05/27/17 22:30 Clean Catch Midstream Urine Culture - Final NO GROWTH 2 DAYS 05/23/17 14:45 Blood Blood Culture - Final NO GROWTH IN 5 DAYS Impressions: Abdomen/Pelvis CT 05/20/17 00:00 IMPRESSION: Small 2 cm left renal mass with apparent rim calcification. If clinically warranted CT with IV contrast may be of value for further evaluation. Small bilateral adrenal nodules which appears stable when correlated with the previous study. Other findings as noted above Chest CT 05/20/17 00:00 IMPRESSION: Tiny bilateral pleural effusions are identified with associated predominately basilar airspace consolidation most consistent with atelectatic changes although I cannot exclude pneumonic consolidations. Tracheostomy tube and NG tube are identified in position. Other findings as noted above Chest X-Ray 05/27/17 06:00 IMPRESSION: Cardiomegaly. Bibasilar discoid atelectasis with bilateral pleural thickening or effusions. No significant change. Assessment & Plan - Diagnosis (1) HAP (hospital-acquired pneumonia) Is this a current diagnosis for this admission?: Yes Plan: Continue antibiotics. Sputum culture grew klebsiella pneumo, on appropriate antibiotics (2) Acute airway obstruction Is this a current diagnosis for this admission?: Yes Plan: Trach to trach collar. Management per pulmonary (3) Angioedema Qualifiers: Encounter type: subsequent encounter Qualified Code(s): T78.3XXD - Angioneurotic edema, subsequent encounter Is this a current diagnosis for this admission?: Yes Plan: Patient has had recurrent angioedema in the past. This time requiring emergent tracheostomy. (4) Atelectasis, left Is this a current diagnosis for this admission?: Yes (5) Congestive heart failure Is this a current diagnosis for this admission?: Yes Plan: Patient appears euvolemic (6) Drug abuse Is this a current diagnosis for this admission?: Yes Plan: Patient has been counseled (7) GRACY (obstructive sleep apnea) Is this a current diagnosis for this admission?: Yes (8) Acute respiratory failure Qualifiers: Respiratory failure complication: hypoxia and hypercapnia Qualified Code(s) : J96.01 - Acute respiratory failure with hypoxia; J96.02 - Acute respiratory failure with hypercapnia; J96.02 - Acute respiratory failure with hypercapnia; J96.02 - Acute respiratory failure with hypercapnia Is this a current diagnosis for this admission?: Yes Plan: Resolved on trach collar (9) COPD (chronic obstructive pulmonary disease) Qualifiers: COPD type: unspecified COPD Qualified Code(s): J44.9 - Chronic obstructive pulmonary disease, unspecified Is this a current diagnosis for this admission?: Yes Plan: Continue inhalers - Time Time Spent with patient: 25-34 minutes Medications reviewed and adjusted accordingly: Yes Anticipated discharge: Home with Homehealth
[2017-05-29] MEDS: CEFEPIME HCL 2 GM in NORMAL SALINE 100 ML IV SCH (21:16)
[2017-05-30] MEDS: IPRATROPIUM/ALBUTEROL 0.5-2.5 MG/3 ML AMPUL NEB SCH ×4 (02:21→21:48)
[2017-05-30] MEDS: NORMAL SALINE 1000 ML 1,000 ML IV PRN (05:30)
[2017-05-30] MEDS: INSULIN LISPRO 100 UNIT/ML 3 ML VIAL SUBCUT PRN ×4 (07:38→22:33)
[2017-05-30] MEDS: ENOXAPARIN SODIUM INJ 150 MG/1 ML DISP.SYRIN SUBCUT SCH (10:23)
[2017-05-30] MEDS: FLUTICASONE NASAL SPRAY 50 MCG/SPRY 120 SPRAY/16 GM NASL SCH (10:24)
[2017-05-30] MEDS: BUDESONIDE/FORMOTEROL 160-4.5 MCG 60 PUFF/6 GM MDI IH SCH ×2 (10:25→21:43)
[2017-05-30] MEDS: CEFEPIME HCL 2 GM in NORMAL SALINE 100 ML IV SCH ×2 (10:25→21:45)
[2017-05-30] MEDS: RISPERIDONE 0.5 MG TAB.RAPDIS PO SCH ×2 (10:25→21:43)
[2017-05-30] MEDS: METOPROLOL TARTRATE 25 MG TABLET PO SCH ×2 (10:25→21:45)
[2017-05-30] MEDS: FAMOTIDINE INJ/PF 20 MG/2 ML SDV IV SCH ×2 (10:25→21:43)
[2017-05-30] MEDS: INSULIN GLARGINE,HUM.REC.ANLOG 300 UNIT/3 ML INSULN.PEN SUBCUT SCH (10:25)
--- NOTE | 2017-05-30 11:54 | PDOC PROGRESS REPORT ---
Subjective Reason For Visit: ANGIOEDEMA, RESPIRATORY FAILURE Physical Exam Vital Signs: Temp Pulse Resp BP Pulse Ox 98.5 F 75 18 140/97 H 100 05/30/17 07:42 05/30/17 08:36 05/30/17 08:36 05/30/17 07:42 05/30/17 08:36 Intake & Output 05/29/17 05/30/17 05/31/17 00:59 00:59 00:59 Intake Total 2345 4074 700 Output Total 1450 1550 450 Balance 895 2524 250 Weight 127.6 kg 117.8 kg 128.5 kg General appearance: PRESENT: no acute distress, obese Head exam: PRESENT: atraumatic, normocephalic Eye exam: PRESENT: conjunctiva pink, EOMI, PERRLA. ABSENT: scleral icterus Ear exam: PRESENT: normal external ear exam Mouth exam: PRESENT: moist, tongue midline Neck exam: ABSENT: tracheostomy tube in place Respiratory exam: PRESENT: clear to auscultation angelina, symmetrical, unlabored. few ronchi bilaterally Cardiovascular exam: PRESENT: RRR. ABSENT: diastolic murmur, rubs, systolic murmur Pulses: PRESENT: normal carotid pulses, normal radial pulses Vascular exam: PRESENT: normal capillary refill GI/Abdominal exam: PRESENT: normal bowel sounds, soft. ABSENT: distended, guarding, mass, organolmegaly, rebound, tenderness Rectal exam: PRESENT: deferred Extremities exam: PRESENT: full ROM. ABSENT: calf tenderness, clubbing, pedal edema Musculoskeletal exam: PRESENT: ambulatory, full ROM Neurological exam: PRESENT: alert, awake, oriented to person, oriented to place , oriented to time, oriented to situation, CN II-XII grossly intact. ABSENT: motor sensory deficit Psychiatric exam: PRESENT: appropriate affect, normal mood. ABSENT: homicidal ideation, suicidal ideation Skin exam: PRESENT: dry, intact, warm. ABSENT: cyanosis, rash Results Laboratory Results: 05/29/17 05:30 05/29/17 05:30 05/27/17 22:30 Clean Catch Midstream Urine Culture - Final NO GROWTH 2 DAYS Impressions: Abdomen/Pelvis CT 05/20/17 00:00 IMPRESSION: Small 2 cm left renal mass with apparent rim calcification. If clinically warranted CT with IV contrast may be of value for further evaluation. Small bilateral adrenal nodules which appears stable when correlated with the previous study. Other findings as noted above Chest CT 05/20/17 00:00 IMPRESSION: Tiny bilateral pleural effusions are identified with associated predominately basilar airspace consolidation most consistent with atelectatic changes although I cannot exclude pneumonic consolidations. Tracheostomy tube and NG tube are identified in position. Other findings as noted above Chest X-Ray 05/27/17 06:00 IMPRESSION: Cardiomegaly. Bibasilar discoid atelectasis with bilateral pleural thickening or effusions. No significant change. Assessment & Plan - Diagnosis (1) HAP (hospital-acquired pneumonia) Is this a current diagnosis for this admission?: Yes (2) Chronic anticoagulation Is this a current diagnosis for this admission?: Yes Plan: Patient is still on Lovenox subcu He has had no evidence of bleeding We will resume Eliquis p.o. (3) Angioedema Qualifiers: Encounter type: subsequent encounter Qualified Code(s): T78.3XXD - Angioneurotic edema, subsequent encounter Is this a current diagnosis for this admission?: Yes (4) Congestive heart failure Is this a current diagnosis for this admission?: Yes Plan: Well compensated at this time Management as per cardiology The patient to undergo stress testing as an outpatient when stable (5) Drug abuse Is this a current diagnosis for this admission?: Yes (6) Acute airway obstruction Is this a current diagnosis for this admission?: Yes - Time Time Spent with patient: Patient close to being ready for discharge ? Will the patient be discharged home with Trilogy ventilator versus being discharged to pulmonary rehab- [facility] Consultation was discharge planning Case to be discussed with Dr. Humphries on Wednesday continue present management Time Spent with patient: 25-34 minutes
[2017-05-30] MEDS: FENTANYL CITRATE INJ/PF 100 MCG/2 ML AMPUL IV PRN ×2 (16:27→21:44)
--- NOTE | 2017-05-30 17:07 | PDOC PROGRESS REPORT ---
Subjective Progress Note for:: 05/30/17 Subjective:: Is still on trach collar. However following commands and able to cooperate. Currently doing better. Patient answers question appropriately and seems alert oriented 3. Patient on questioning nods negative to any chest pain, shortness of breath. Medications reviewed. Patient complaining on the cell phone. Telemetry strip shows mild intermittent sinus tachycardia but no other sustained tachycardia or bradycardia arrhythmias noted. Reason For Visit: ANGIOEDEMA, RESPIRATORY FAILURE Physical Exam Vital Signs: Temp Pulse Resp BP Pulse Ox 99.6 F 96 16 148/106 H 95 05/30/17 16:04 05/30/17 16:04 05/30/17 16:04 05/30/17 16:04 05/30/17 16:04 Intake & Output 05/29/17 05/30/17 05/31/17 06:59 06:59 06:59 Intake Total 3321 3124 474 Output Total 1675 1625 300 Balance 1646 1499 174 Weight 117.8 kg 128.5 kg Exam: GENERAL: well-nourished and in no acute distress. Alert and oriented x3 HEAD: Atraumatic, normocephalic. EYES: Pupils equal round and reactive to light, extraocular movements intact, sclera anicteric, conjunctiva are normal. ENT: TMs normal, nares patent, oropharynx clear without exudates. Moist mucous membranes. No oral ulcerations or bleeding gums noted NECK: supple without lymphadenopathy. Tracheostomy with O2 supplementation by tracheal collar. No cervical or axillary lymphadenopathy noted. Carotids are 2 +, JVD WNL LUNGS: Respiration seems nonlabored, no significant accessory muscle action noted. Breath sounds clear to auscultation bilaterally and equal noted. No wheezes rales or rhonchi noted. No significant dullness noted on percussion. CHEST: Palpation of the chest wall shows no significant chest wall tenderness. No other significant abnormalities noted. 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 ABDOMEN: Soft, no significant tenderness appreciated, normoactive bowel sounds. No guarding, no rebound. No rigidity noted . No masses appreciated. EXTREMITIES: Pedal pulses are 1-2+, no calf tenderness noted. No clubbing or cyanosis.trace to 1+ pedal edema noted NEUROLOGICAL: Focused neurological exam showed no significant neurologic deficit. Motor speech could not be checked but patient does understand, no focal weakness appreciated. PSYCH: Normal mood, normal affect. Judgment and insight within normal limits. SKIN: No significant ecchymosis, rash, ulcerations or signs of pruritus noted. MUSCULOSKELETAL EXAM: No significant joint swelling noted. Results Laboratory Results: 05/29/17 05:30 05/29/17 05:30 EKG Comments: Telemetry shows sinus rhythm without any sustained tacky or bradycardia arrhythmias. Impressions: Abdomen/Pelvis CT 05/20/17 00:00 IMPRESSION: Small 2 cm left renal mass with apparent rim calcification. If clinically warranted CT with IV contrast may be of value for further evaluation. Small bilateral adrenal nodules which appears stable when correlated with the previous study. Other findings as noted above Chest CT 05/20/17 00:00 IMPRESSION: Tiny bilateral pleural effusions are identified with associated predominately basilar airspace consolidation most consistent with atelectatic changes although I cannot exclude pneumonic consolidations. Tracheostomy tube and NG tube are identified in position. Other findings as noted above Chest X-Ray 05/27/17 06:00 IMPRESSION: Cardiomegaly. Bibasilar discoid atelectasis with bilateral pleural thickening or effusions. No significant change. Assessment & Plan - Diagnosis (1) Acute airway obstruction Is this a current diagnosis for this admission?: Yes (2) Angioedema Qualifiers: Encounter type: subsequent encounter Qualified Code(s): T78.3XXD - Angioneurotic edema, subsequent encounter Is this a current diagnosis for this admission?: Yes (3) GRACY (obstructive sleep apnea) Is this a current diagnosis for this admission?: Yes (4) COPD (chronic obstructive pulmonary disease) Qualifiers: COPD type: unspecified COPD Qualified Code(s): J44.9 - Chronic obstructive pulmonary disease, unspecified Is this a current diagnosis for this admission?: Yes (5) Diabetes Qualifiers: Diabetes mellitus type: type 2 Diabetes mellitus complication status: with diabetic arthropathy Diabetes mellitus complication detail: with other arthropathy Diabetes mellitus senior living insulin use: with vermin exterminator use Qualified Code(s): E11.618 - Type 2 diabetes mellitus with other diabetic arthropathy; Z79.4 - snf (current) use of insulin; Z79.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 It seems patient is not on CPAP therapy at home. Patient however is followed by [facility]. Also noted that patient has not had any cardiac evaluation in the past and he does not remember ever having a nuclear stress test. This will be considered prior to discharge. - Time Time with patient: 15-25 minutes - CODE STATUS was discussed, patient remains full code. Surrogate decision-maker unchanged. Multiple medical problems were addressed. More than 50% of the time spent coordinating care, discussing management plans with involved caregivers. Management plans discussed with involved personnels. Medical decision making was of moderate to high complexity , patient's has multiple comorbidities. Medications reviewed and adjusted accordingly: Yes
[2017-05-30] MEDS: APIXABAN 5 MG TABLET PO SCH (18:12)
--- NOTE | 2017-05-30 18:37 | EKG REPORT ---
SEVERITY:- BORDERLINE ECG - SINUS TACHYCARDIA VENTRICULAR PREMATURE COMPLEX BORDERLINE T ABNORMALITIES, INFERIOR LEADS : Confirmed by: Brad Piper 30-May-2017 18:37:00
[2017-05-31] MEDS: IPRATROPIUM/ALBUTEROL 0.5-2.5 MG/3 ML AMPUL NEB SCH ×4 (02:22→21:10)
[2017-05-31 06:24] LABS: HEMATOCRIT 34.4 % (37.9-51.0); HEMOGLOBIN 11.4 g/dL (13.5-17.0); MEAN CORPUSCULAR HGB CONC 33.3 g/dL (32.0-36.0); MEAN CORPUSCULAR VOLUME 87 fl (80-97); PLATELET COUNT 208 10^3/uL (150-450); RED BLOOD COUNT 3.94 10^6/uL (4.35-5.55); RED CELL DISTRIBUTION WIDTH 14.1 % (11.5-14.0); WHITE BLOOD COUNT 7.8 10^3/uL (4.0-10.5)
[2017-05-31] MEDS: FENTANYL CITRATE INJ/PF 100 MCG/2 ML AMPUL IV PRN ×3 (06:47→20:30)
[2017-05-31] MEDS: INSULIN LISPRO 100 UNIT/ML 3 ML VIAL SUBCUT PRN ×4 (09:11→22:48)
[2017-05-31] MEDS: INSULIN GLARGINE,HUM.REC.ANLOG 300 UNIT/3 ML INSULN.PEN SUBCUT SCH (09:11)
[2017-05-31] MEDS: CEFEPIME HCL 2 GM in NORMAL SALINE 100 ML IV SCH ×2 (09:11→21:57)
[2017-05-31] MEDS: BUDESONIDE/FORMOTEROL 160-4.5 MCG 60 PUFF/6 GM MDI IH SCH ×2 (09:12→21:55)
[2017-05-31] MEDS: METOPROLOL TARTRATE 25 MG TABLET PO SCH ×2 (09:12→21:53)
[2017-05-31] MEDS: FAMOTIDINE INJ/PF 20 MG/2 ML SDV IV SCH ×2 (09:12→21:54)
[2017-05-31] MEDS: RISPERIDONE 0.5 MG TAB.RAPDIS PO SCH ×2 (09:13→21:55)
[2017-05-31] MEDS: APIXABAN 5 MG TABLET PO SCH ×2 (09:13→18:17)
[2017-05-31] MEDS: FLUTICASONE NASAL SPRAY 50 MCG/SPRY 120 SPRAY/16 GM NASL SCH (09:13)
[2017-05-31] MEDS: NORMAL SALINE INJ/PF 0.9% 10 ML SDV IV PRN (09:14)
--- NOTE | 2017-05-31 12:23 | PDOC PROGRESS REPORT ---
Subjective Progress Note for:: 05/31/17 Subjective:: Is still on trach collar. However following commands and able to cooperate. Currently doing better. Patient answers question appropriately and seems alert oriented 3. Patient on questioning nods negative to any chest pain, shortness of breath. Patient's in the room. They are agreeable to pursue a nuclear stress test to evaluate underlying cardiac status and evaluate diagnosis of CAD. Medications reviewed. Patient complaining on the cell phone. Telemetry strip shows mild intermittent sinus tachycardia but no other sustained tachycardia or bradycardia arrhythmias noted. Reason For Visit: ANGIOEDEMA, RESPIRATORY FAILURE Physical Exam Vital Signs: Temp Pulse Resp BP Pulse Ox 98.6 F 100 12 131/97 H 95 05/31/17 07:58 05/31/17 08:28 05/31/17 08:28 05/31/17 07:58 05/31/17 08:28 Intake & Output 05/30/17 05/31/17 06/01/17 06:59 06:59 06:59 Intake Total 3124 1797 Output Total 1625 1675 Balance 1499 122 Weight 128.5 kg 130.9 kg Exam: GENERAL: well-nourished and in no acute distress. Alert and oriented x3 HEAD: Atraumatic, normocephalic. EYES: Pupils equal round and reactive to light, extraocular movements intact, sclera anicteric, conjunctiva are normal. ENT: TMs normal, nares patent, oropharynx clear without exudates. Moist mucous membranes. No oral ulcerations or bleeding gums noted NECK: supple without lymphadenopathy. Trachea is central with tracheostomy being present. No cervical or axillary lymphadenopathy noted. Carotids are 2+ , JVD WNL LUNGS: Respiration seems nonlabored, no significant accessory muscle action noted. Breath sounds clear to auscultation bilaterally and equal noted. No wheezes rales or rhonchi noted. No significant dullness noted on percussion. CHEST: Palpation of the chest wall shows no significant chest wall tenderness. No other significant abnormalities noted. 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 ABDOMEN: Soft, no significant tenderness appreciated, normoactive bowel sounds. No guarding, no rebound. No rigidity noted . No masses appreciated. EXTREMITIES: Pedal pulses are 1-2+, no calf tenderness noted. No clubbing or cyanosis.trace to 1+ pedal edema noted NEUROLOGICAL: Focused neurological exam showed no significant neurologic deficit. Motor speech could not be checked but patient able to understand and communicate, no focal weakness appreciated. PSYCH: Normal mood, normal affect. Judgment and insight within normal limits. SKIN: No significant ecchymosis, rash, ulcerations or signs of pruritus noted. MUSCULOSKELETAL EXAM: No significant joint swelling noted. Results Laboratory Results: 05/31/17 05:50 05/29/17 05:30 05/31/17 05:50 WBC 7.8 RBC 3.94 L Hgb 11.4 L Hct 34.4 L MCV 87 MCH 29.0 MCHC 33.3 RDW 14.1 H Plt Count 208 05/30/17 18:20 Troponin I < 0.012 EKG Comments: Telemetry strips shows sinus rhythm Impressions: Abdomen/Pelvis CT 05/20/17 00:00 IMPRESSION: Small 2 cm left renal mass with apparent rim calcification. If clinically warranted CT with IV contrast may be of value for further evaluation. Small bilateral adrenal nodules which appears stable when correlated with the previous study. Other findings as noted above Chest CT 05/20/17 00:00 IMPRESSION: Tiny bilateral pleural effusions are identified with associated predominately basilar airspace consolidation most consistent with atelectatic changes although I cannot exclude pneumonic consolidations. Tracheostomy tube and NG tube are identified in position. Other findings as noted above Chest X-Ray 05/27/17 06:00 IMPRESSION: Cardiomegaly. Bibasilar discoid atelectasis with bilateral pleural thickening or effusions. No significant change. Assessment & Plan - Diagnosis (1) Acute airway obstruction Is this a current diagnosis for this admission?: Yes (2) Angioedema Qualifiers: Encounter type: subsequent encounter Qualified Code(s): T78.3XXD - Angioneurotic edema, subsequent encounter Is this a current diagnosis for this admission?: Yes (3) GRACY (obstructive sleep apnea) Is this a current diagnosis for this admission?: Yes (4) COPD (chronic obstructive pulmonary disease) Qualifiers: COPD type: unspecified COPD Qualified Code(s): J44.9 - Chronic obstructive pulmonary disease, unspecified Is this a current diagnosis for this admission?: Yes (5) Diabetes Qualifiers: Diabetes mellitus type: type 2 Diabetes mellitus complication status: with diabetic arthropathy Diabetes mellitus complication detail: with other arthropathy Diabetes mellitus fdc insulin use: with fdc use Qualified Code(s): E11.618 - Type 2 diabetes mellitus with other diabetic arthropathy; 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; Z79.4 - alf ( current) use of insulin; 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; Z79.4 - alf (current) use of insulin Is this a current diagnosis for this admission?: Yes (6) Hypertension Qualifiers: Hypertension type: essential hypertension Qualified Code(s): I10 - Essential (primary) hypertension Is this a current diagnosis for this admission?: Yes (7) Drug abuse Is this a current diagnosis for this admission?: Yes (8) Atelectasis, left Is this a current diagnosis for this admission?: Yes (9) CAD (coronary artery disease) Qualifiers: Coronary Disease-Associated Artery/Lesion type: [place] artery [place] vs. transplanted heart: [place] heart Associated angina: angina presence unspecified Qualified Code(s): I25.10 - Atherosclerotic heart disease of [place] coronary artery without angina pectoris Is this a current diagnosis for this admission?: Yes - Notes Notes: COPD: Patient will benefit from drug abuse cessation and also smoking cessation. Patient now understands this. Diabetes: Would leave management plans to lunchroom operator/hospitalist/PMD. Hypertension: Currently reasonably well controlled. Obesity: Stable CAD: Patient has history of CAD but currently EKG showing no significant ST-T wave changes. Monitor for any cardiac dysrhythmia, EKG changes etc. Patient being scheduled for a nuclear stress test. Recommend statins, beta-renetta. Unfortunately SHAMA inhibitors, angiotensin receptor blockers are contraindicated. Sleep apnea syndrome: Adequately treated with tracheostomy. Patient will benefit from long-term weight loss. 2D echo results were reviewed. It shows normal LVEF, diastolic dysfunction. - Time Time with patient: 15-25 minutes - CODE STATUS was discussed, patient remains full code. Surrogate decision-maker unchanged. Multiple medical problems were addressed. More than 50% of the time spent coordinating care, discussing management plans with involved caregivers. Management plans discussed with involved personnels. Medical decision making was of moderate to high complexity , patient's has multiple comorbidities. Medications reviewed and adjusted accordingly: Yes
[2017-05-31] MEDS: DIAZEPAM INJ 10 MG/2 ML DISP.SYRIN IV PRN (17:46)
--- NOTE | 2017-05-31 18:28 | PDOC PROGRESS REPORT ---
Subjective Progress Note for:: 05/31/17 Subjective:: Patient seen on rounds. He is sitting out of bed in the bedside chair. He has trach collar on. He is awake and alert, answering questions appropriately. He denies any chest pain or dyspnea. He denies any nausea, vomiting or abdominal pain. He has had no diarrhea. He denies any pain or arthralgias. Remaining review of systems are negative. Reason For Visit: ANGIOEDEMA, RESPIRATORY FAILURE Physical Exam Vital Signs: Temp Pulse Resp BP Pulse Ox 98.5 F 80 18 126/91 H 96 05/31/17 13:44 05/31/17 14:00 05/31/17 13:53 05/31/17 13:44 05/31/17 13:53 Intake & Output 05/30/17 05/31/17 06/01/17 06:59 06:59 06:59 Intake Total 3124 1797 740 Output Total 1625 1675 450 Balance 1499 122 290 Weight 128.5 kg 130.9 kg General appearance: PRESENT: no acute distress, morbidly obese, well-developed, well-nourished, other - trach to trach collar Head exam: PRESENT: atraumatic, normocephalic Eye exam: PRESENT: conjunctival injection Ear exam: PRESENT: normal external ear exam Mouth exam: PRESENT: moist, tongue midline Teeth exam: PRESENT: edentulous Neck exam: ABSENT: carotid bruit, JVD, lymphadenopathy, thyromegaly Respiratory exam: PRESENT: rhonchi, symmetrical, unlabored Cardiovascular exam: PRESENT: RRR. ABSENT: diastolic murmur, rubs, systolic murmur Pulses: PRESENT: normal dorsalis pedis pul Vascular exam: PRESENT: normal capillary refill GI/Abdominal exam: PRESENT: normal bowel sounds, soft. ABSENT: distended, guarding, mass, organolmegaly, rebound, tenderness Rectal exam: PRESENT: deferred Extremities exam: PRESENT: full ROM. ABSENT: calf tenderness, clubbing, pedal edema Musculoskeletal exam: PRESENT: ambulatory, full ROM, normal inspection Neurological exam: PRESENT: alert, awake, oriented to person, oriented to place , oriented to time, oriented to situation, CN II-XII grossly intact. ABSENT: motor sensory deficit Psychiatric exam: PRESENT: appropriate affect, normal mood. ABSENT: homicidal ideation, suicidal ideation Skin exam: PRESENT: dry, intact, warm. ABSENT: cyanosis, rash Results Laboratory Results: 05/31/17 05:50 05/29/17 05:30 05/31/17 05:50 WBC 7.8 RBC 3.94 L Hgb 11.4 L Hct 34.4 L MCV 87 MCH 29.0 MCHC 33.3 RDW 14.1 H Plt Count 208 05/30/17 18:20 Troponin I < 0.012 Impressions: Abdomen/Pelvis CT 05/20/17 00:00 IMPRESSION: Small 2 cm left renal mass with apparent rim calcification. If clinically warranted CT with IV contrast may be of value for further evaluation. Small bilateral adrenal nodules which appears stable when correlated with the previous study. Other findings as noted above Chest CT 05/20/17 00:00 IMPRESSION: Tiny bilateral pleural effusions are identified with associated predominately basilar airspace consolidation most consistent with atelectatic changes although I cannot exclude pneumonic consolidations. Tracheostomy tube and NG tube are identified in position. Other findings as noted above Chest X-Ray 05/27/17 06:00 IMPRESSION: Cardiomegaly. Bibasilar discoid atelectasis with bilateral pleural thickening or effusions. No significant change. Assessment & Plan - Diagnosis (1) Acute airway obstruction Is this a current diagnosis for this admission?: Yes Plan: Trach to trach collar. Management per pulmonary. He has had multiple admissions for acute angioedema. He will need referral post discharge to [place] or [facility] for possible cause identification (2) Angioedema Qualifiers: Encounter type: subsequent encounter Qualified Code(s): T78.3XXD - Angioneurotic edema, subsequent encounter Is this a current diagnosis for this admission?: Yes Plan: Patient has had recurrent angioedema in the past. This time requiring emergent tracheostomy. (3) Atelectasis, left Is this a current diagnosis for this admission?: Yes Plan: Improved (4) Congestive heart failure Is this a current diagnosis for this admission?: Yes Plan: Diastolic grade 2/. Patient appears euvolemic (5) Drug abuse Is this a current diagnosis for this admission?: Yes Plan: Patient has been counseled (6) GRACY (obstructive sleep apnea) Is this a current diagnosis for this admission?: Yes Plan: Trilogy at (7) Acute respiratory failure Qualifiers: Respiratory failure complication: hypoxia and hypercapnia Qualified Code(s) : J96.01 - Acute respiratory failure with hypoxia; J96.02 - Acute respiratory failure with hypercapnia; J96.02 - Acute respiratory failure with hypercapnia; J96.02 - Acute respiratory failure with hypercapnia Is this a current diagnosis for this admission?: Yes Plan: Resolved on trach collar (8) COPD (chronic obstructive pulmonary disease) Qualifiers: COPD type: unspecified COPD Qualified Code(s): J44.9 - Chronic obstructive pulmonary disease, unspecified Is this a current diagnosis for this admission?: Yes Plan: Continue inhalers (9) HAP (hospital-acquired pneumonia) Is this a current diagnosis for this admission?: Yes Plan: Resolved and treated - Time Time Spent with patient: 25-34 minutes Total Critical Time (Minutes): 20 Medications reviewed and adjusted accordingly: Yes Anticipated discharge: Home with Homehealth Within: within 48 hours
[2017-06-01] MEDS: IPRATROPIUM/ALBUTEROL 0.5-2.5 MG/3 ML AMPUL NEB SCH ×4 (02:28→21:13)
[2017-06-01 03:20] LABS: APPEARANCE,URINE CLEAR; BILIRUBIN,URINE NEGATIVE (NEGATIVE); COLOR,URINE YELLOW; GLUCOSE, URINE NEGATIVE (NEGATIVE); KETONES,URINE NEGATIVE (NEGATIVE); LEUKOCYTE ESTERASE,URINE NEGATIVE (NEGATIVE); NITRITE,URINE NEGATIVE (NEGATIVE); PROTEIN,URINE NEGATIVE (NEGATIVE); URINE SPECIFIC GRAVITY 1.005; UROBILINOGEN,URINE NEGATIVE mg/dL (<2.0)
[2017-06-01] MEDS: INSULIN LISPRO 100 UNIT/ML 3 ML VIAL SUBCUT PRN ×4 (08:40→23:15)
[2017-06-01] MEDS: METOPROLOL TARTRATE 25 MG TABLET PO SCH ×2 (11:11→21:48)
[2017-06-01] MEDS: RISPERIDONE 0.5 MG TAB.RAPDIS PO SCH (11:12)
[2017-06-01] MEDS: APIXABAN 5 MG TABLET PO SCH ×2 (11:12→17:12)
[2017-06-01] MEDS: FAMOTIDINE INJ/PF 20 MG/2 ML SDV IV SCH ×2 (11:15→21:47)
[2017-06-01] MEDS: INSULIN GLARGINE,HUM.REC.ANLOG 300 UNIT/3 ML INSULN.PEN SUBCUT SCH (11:16)
[2017-06-01] MEDS: FLUTICASONE NASAL SPRAY 50 MCG/SPRY 120 SPRAY/16 GM NASL SCH (11:18)
[2017-06-01] MEDS: BUDESONIDE/FORMOTEROL 160-4.5 MCG 60 PUFF/6 GM MDI IH SCH ×2 (11:18→21:48)
[2017-06-01] MEDS: CEFEPIME HCL 2 GM in NORMAL SALINE 100 ML IV SCH (11:19)
[2017-06-01] MEDS ORDERED: REGADENOSON INJ 0.4 MG/5 ML DISP.SYRIN IV ONE (12:39)
[2017-06-01] MEDS ORDERED: AMINOPHYLLINE INJ/PF 250 MG/10 ML SDV IV ONE (12:39)
[2017-06-01] MEDS ORDERED: DIPHENHYDRAMINE HCL 50 MG/ML VIAL IV PRN (19:22)
--- NOTE | 2017-06-01 20:23 | RADIOLOGY REPORT (SQ) ---
EXAM DESCRIPTION: CHEST PA/LAT COMPLETED DATE/TIME: 06/01/2017 7:26 pm REASON FOR STUDY: Dyspnea COMPARISON: 07/27/2016 EXAM PARAMETERS: NUMBER OF VIEWS: two views TECHNIQUE: Digital Frontal and Lateral radiographic views of the chest acquired. RADIATION DOSE: NA LIMITATIONS: none FINDINGS: LUNGS AND PLEURA: No acute opacities, masses or pneumothorax. Similar basilar scarring -i nterstitial change. No pleural effusion. MEDIASTINUM AND HILAR STRUCTURES: Stable. HEART AND VASCULAR STRUCTURES: Stable cardiomegaly. BONES: No acute findings. HARDWARE: Tracheostomy. Right IJ central venous catheter tip overlies the SVC above the level of the marilyn. OTHER: No other significant finding. IMPRESSION: No acute findings.Right IJ central venous catheter tip overlies the SVC above the level of the marilyn. TECHNICAL DOCUMENTATION: JOB ID: [id number] [id number] 2010 [employer]- All Rights Reserved
[2017-06-01] MEDS: DIAZEPAM INJ 10 MG/2 ML DISP.SYRIN IV PRN (21:54)
[2017-06-02] MEDS: IPRATROPIUM/ALBUTEROL 0.5-2.5 MG/3 ML AMPUL NEB SCH ×4 (02:20→20:43)
[2017-06-02 06:52] LABS: ANION GAP 8 (5-19); BLOOD UREA NITROGEN 4 mg/dL (7-20); CALCIUM 8.7 mg/dL (8.4-10.2); CARBON DIOXIDE 29 mmol/L (22-30); CHLORIDE 104 mmol/L (98-107); GLUCOSE 191 mg/dL (75-110); POTASSIUM 3.8 mmol/L (3.6-5.0); SODIUM 141.4 mmol/L (137-145)
[2017-06-02 07:14] LABS: ABSOLUTE EOSINOPHILS # (AUTO) 0.1 10^3/uL (0.0-0.6); ABSOLUTE LYMPHOCYTES (AUTO) 1.5 10^3/uL (0.5-4.7); ABSOLUTE NEUT (AUTO) 6.2 10^3/uL (1.7-8.2); BASOPHILS % (AUTO) 0.3 % (0-2); EOSINOPHILS % (AUTO) 1.6 % (0-6); HEMATOCRIT 34.8 % (37.9-51.0); HEMOGLOBIN 11.3 g/dL (13.5-17.0); LYMPHOCYTES % (AUTO) 16.5 % (13-45); MEAN CORPUSCULAR HEMOGLOBIN 28.5 pg (27.0-33.4); MEAN CORPUSCULAR HGB CONC 32.6 g/dL (32.0-36.0); MEAN CORPUSCULAR VOLUME 88 fl (80-97); MONOCYTES % (AUTO) 11.7 % (3-13); PLATELET COUNT 236 10^3/uL (150-450); RED BLOOD COUNT 3.98 10^6/uL (4.35-5.55); RED CELL DISTRIBUTION WIDTH 14.2 % (11.5-14.0); SEGMENTED NEUTROPHILS % (AUTO) 69.9 % (42-78); TOTAL CELLS COUNTED % (AUTO) 100 %; WHITE BLOOD COUNT 8.9 10^3/uL (4.0-10.5)
[2017-06-02 08:06] LABS: APPEARANCE,URINE CLEAR; BILIRUBIN,URINE NEGATIVE (NEGATIVE); COLOR,URINE YELLOW; GLUCOSE, URINE NEGATIVE (NEGATIVE); KETONES,URINE NEGATIVE (NEGATIVE); LEUKOCYTE ESTERASE,URINE NEGATIVE (NEGATIVE); NITRITE,URINE NEGATIVE (NEGATIVE); PROTEIN,URINE NEGATIVE (NEGATIVE); URINE SPECIFIC GRAVITY 1.009
[2017-06-02] MEDS: APIXABAN 5 MG TABLET PO SCH ×2 (10:29→17:23)
[2017-06-02] MEDS: METOPROLOL TARTRATE 25 MG TABLET PO SCH ×2 (10:29→21:40)
[2017-06-02] MEDS: FAMOTIDINE INJ/PF 20 MG/2 ML SDV IV SCH ×2 (10:30→21:41)
[2017-06-02] MEDS: BUDESONIDE/FORMOTEROL 160-4.5 MCG 60 PUFF/6 GM MDI IH SCH ×2 (10:31→21:42)
[2017-06-02] MEDS: FLUTICASONE NASAL SPRAY 50 MCG/SPRY 120 SPRAY/16 GM NASL SCH (10:31)
[2017-06-02] MEDS: INSULIN GLARGINE,HUM.REC.ANLOG 300 UNIT/3 ML INSULN.PEN SUBCUT SCH (10:32)
[2017-06-02] MEDS ORDERED: RISPERIDONE 0.5 MG TAB.RAPDIS PO ONE (11:30)
[2017-06-02] MEDS: INSULIN LISPRO 100 UNIT/ML 3 ML VIAL SUBCUT PRN ×3 (12:11→22:40)
--- NOTE | 2017-06-02 12:36 | PDOC PROGRESS REPORT ---
Subjective Progress Note for:: 06/01/17 Subjective:: Is still on trach collar. However following commands and able to cooperate. Patient today able to speak through the trach collar. Currently doing better. Patient answers question appropriately and seems alert oriented 3. Patient on questioning nods negative to any chest pain, shortness of breath. Patient's in the room. They are agreeable to pursue a nuclear stress test to evaluate underlying cardiac status and evaluate diagnosis of CAD. Patient did undergo rest imaging and also stress imaging but he just could not lay flat for completing the stress imaging. He wishes to perform it tomorrow. Medications reviewed. Patient complaining on the cell phone. Telemetry strip shows mild intermittent sinus tachycardia but no other sustained tachycardia or bradycardia arrhythmias noted. Reason For Visit: ANGIOEDEMA, RESPIRATORY FAILURE Physical Exam Vital Signs: Temp Pulse Resp BP Pulse Ox 99.2 F 94 16 127/62 H 92 06/01/17 15:34 06/01/17 15:34 06/01/17 15:34 06/01/17 15:34 06/01/17 15:34 Intake & Output 05/31/17 06/01/17 06/02/17 06:59 06:59 06:59 Intake Total 1797 1260 Output Total 1675 2000 Balance 122 -740 Weight 130.9 kg 130.1 kg Exam: GENERAL: well-nourished and in no acute distress. Alert and oriented x3 HEAD: Atraumatic, normocephalic. EYES: Pupils equal round and reactive to light, extraocular movements intact, sclera anicteric, conjunctiva are normal. ENT: TMs normal, nares patent, oropharynx clear without exudates. Moist mucous membranes. No oral ulcerations or bleeding gums noted NECK: supple without lymphadenopathy. Central tracheostomy noted. No cervical or axillary lymphadenopathy noted. Carotids are 2+, JVD WNL LUNGS: Respiration seems nonlabored, no significant accessory muscle action noted. Breath sounds clear to auscultation bilaterally and equal noted. Mild wheezes rales or rhonchi noted. No significant dullness noted on percussion. CHEST: Palpation of the chest wall shows no significant chest wall tenderness. No other significant abnormalities noted. HEART: [place] SUPERINTENDENT JOB, No PSH, 1/6 PAT aortic area, 1/6 yuen systolic murmur mitral area, no rubs, no gallops. ABDOMEN: Soft, no significant tenderness appreciated, normoactive bowel sounds. No guarding, no rebound. No rigidity noted . No masses appreciated. EXTREMITIES: Pedal pulses are 1-2+, no calf tenderness noted. No clubbing or cyanosis.trace pedal edema noted NEUROLOGICAL: Focused neurological exam showed no significant neurologic deficit. Normal speech, no focal weakness appreciated. PSYCH: Normal mood, normal affect. Judgment and insight within normal limits. SKIN: No significant ecchymosis, rash, ulcerations or signs of pruritus noted. MUSCULOSKELETAL EXAM: No significant joint swelling noted. Results Laboratory Results: 05/31/17 05:50 05/29/17 05:30 06/01/17 03:00 Urine Color YELLOW Urine Appearance CLEAR Urine pH 7.0 Ur Specific [place] 1.005 Urine Protein NEGATIVE Urine Glucose (UA) NEGATIVE Urine Ketones NEGATIVE Urine Blood NEGATIVE Urine Nitrite NEGATIVE Ur Leukocyte Esterase NEGATIVE Urine WBC (Auto) 0 Urine RBC (Auto) 0 05/30/17 18:20 Troponin I < 0.012 Impressions: Abdomen/Pelvis CT 05/20/17 00:00 IMPRESSION: Small 2 cm left renal mass with apparent rim calcification. If clinically warranted CT with IV contrast may be of value for further evaluation. Small bilateral adrenal nodules which appears stable when correlated with the previous study. Other findings as noted above Chest CT 05/20/17 00:00 IMPRESSION: Tiny bilateral pleural effusions are identified with associated predominately basilar airspace consolidation most consistent with atelectatic changes although I cannot exclude pneumonic consolidations. Tracheostomy tube and NG tube are identified in position. Other findings as noted above Chest X-Ray 05/27/17 06:00 IMPRESSION: Cardiomegaly. Bibasilar discoid atelectasis with bilateral pleural thickening or effusions. No significant change. Assessment & Plan - Diagnosis (1) Acute airway obstruction Is this a current diagnosis for this admission?: Yes (2) Angioedema Qualifiers: Encounter type: subsequent encounter Qualified Code(s): T78.3XXD - Angioneurotic edema, subsequent encounter Is this a current diagnosis for this admission?: Yes (3) GRACY (obstructive sleep apnea) Is this a current diagnosis for this admission?: Yes (4) COPD (chronic obstructive pulmonary disease) Qualifiers: COPD type: unspecified COPD Qualified Code(s): J44.9 - Chronic obstructive pulmonary disease, unspecified Is this a current diagnosis for this admission?: Yes (5) Diabetes Qualifiers: Diabetes mellitus type: type 2 Diabetes mellitus complication status: with diabetic arthropathy Diabetes mellitus complication detail: with other arthropathy Diabetes mellitus prison insulin use: with long chain beamer use Qualified Code(s): E11.618 - Type 2 diabetes mellitus with other diabetic arthropathy; Z79.4 - terminologist (current) use of insulin; Z79.4 - terminologist ( current) use of insulin; Z79.4 - terminologist (current) use of insulin; Z79.4 - [facility] (current) use of insulin Is this a current diagnosis for this admission?: Yes (6) Hypertension Qualifiers: Hypertension type: essential hypertension Qualified Code(s): I10 - Essential (primary) hypertension Is this a current diagnosis for this admission?: Yes (7) Drug abuse Is this a current diagnosis for this admission?: Yes (8) Atelectasis, left Is this a current diagnosis for this admission?: Yes (9) CAD (coronary artery disease) Qualifiers: Coronary Disease-Associated Artery/Lesion type: [place] artery [place] vs. transplanted heart: [place] heart Associated angina: angina presence unspecified Qualified Code(s): I25.10 - Atherosclerotic heart disease of [place] coronary artery without angina pectoris Is this a current diagnosis for this admission?: Yes - Notes Notes: COPD: Patient will benefit from drug abuse cessation and also smoking cessation. Patient now understands this. Diabetes: Would leave management plans to account analyst/hospitalist/PMD. Hypertension: Currently reasonably well controlled. Obesity: Stable. Orthopnea: Cause not clear. Chest x-ray ordered. BNP ordered. CAD: Patient has history of CAD but currently EKG showing no significant ST-T wave changes. Monitor for any cardiac dysrhythmia, EKG changes etc. Patient patient could not complete nuclear stress test. Patient wishes to try to return tomorrow to complete the stress pictures. Recommend statins, beta- renetta. Unfortunately SHAMA inhibitors, angiotensin receptor blockers are contraindicated. Sleep apnea syndrome: Adequately treated with tracheostomy. Patient will benefit from long-term weight loss. 2D echo results were reviewed. It shows normal LVEF, diastolic dysfunction. - Time Time with patient: Greater than 35 minutes - CODE STATUS was discussed, patient remains full code. Surrogate decision-maker unchanged. Multiple medical problems were addressed. More than 50% of the time spent coordinating care, discussing management plans with involved caregivers. Management plans discussed with involved personnels. Medical decision making was of moderate to high complexity, patient's has multiple comorbidities. Medications reviewed and adjusted accordingly: Yes
--- NOTE | 2017-06-02 12:40 | PDOC PROGRESS REPORT ---
Subjective Progress Note for:: 06/02/17 Subjective:: Patient claims to be depressed. This morning patient had an episode where he was briefly unresponsive but his vitals were noted to be normal. Blood sugar earlier this morning was normal but was not checked at the time of episode. He was noted to be slightly tachycardic at that time. Patient answers question appropriately and seems alert oriented 3. Patient on questioning nods negative to any chest pain, shortness of breath. Patient's in the room. Patient did undergo rest imaging and also stress imaging but he just could not lay flat for completing the stress imaging. He claims he is unable to go down and complete the stress test.. Medications reviewed. Telemetry strip shows mild intermittent sinus tachycardia but no other sustained tachycardia or bradycardia arrhythmias noted. Reason For Visit: ANGIOEDEMA, RESPIRATORY FAILURE Physical Exam Vital Signs: Temp Pulse Resp BP Pulse Ox 98.4 F 90 22 H 153/92 H 98 06/02/17 07:14 06/02/17 07:54 06/02/17 07:54 06/02/17 07:14 06/02/17 07:54 Intake & Output 06/01/17 06/02/17 06/03/17 06:59 06:59 06:59 Intake Total 1260 2347 Output Total 2000 575 Balance -740 1772 Weight 130.1 kg Exam: GENERAL: well-nourished and in no acute distress. Alert and oriented x3 HEAD: Atraumatic, normocephalic. EYES: Pupils equal round and reactive to light, extraocular movements intact, sclera anicteric, conjunctiva are normal. ENT: TMs normal, nares patent, oropharynx clear without exudates. Moist mucous membranes. No oral ulcerations or bleeding gums noted NECK: supple without lymphadenopathy. Central tracheostomy noted. No cervical or axillary lymphadenopathy noted. Carotids are 2+, JVD WNL LUNGS: Respiration seems nonlabored, no significant accessory muscle action noted. Breath sounds clear to auscultation bilaterally and equal noted. No wheezes rales or rhonchi noted. No significant dullness noted on percussion. CHEST: Palpation of the chest wall shows no significant chest wall tenderness. No other significant abnormalities noted. HEART: [place] DIETIST, No PSH, 1/6 PAT aortic area, 1/6 yuen systolic murmur mitral area, no rubs, no gallops. ABDOMEN: Soft, no significant tenderness appreciated, normoactive bowel sounds. No guarding, no rebound. No rigidity noted . No masses appreciated. EXTREMITIES: Pedal pulses are 1-2+, no calf tenderness noted. No clubbing or cyanosis.trace to 1+ pedal edema noted NEUROLOGICAL: Focused neurological exam showed no significant neurologic deficit. Normal speech, no focal weakness appreciated. PSYCH: Normal mood, normal affect. Judgment and insight within normal limits. SKIN: No significant ecchymosis, rash, ulcerations or signs of pruritus noted. MUSCULOSKELETAL EXAM: No significant joint swelling noted. Results Laboratory Results: 06/02/17 04:00 06/02/17 04:00 06/02/17 06/02/17 06/02/17 04:00 04:00 04:00 WBC 8.9 RBC 3.98 L Hgb 11.3 L Hct 34.8 L MCV 88 MCH 28.5 MCHC 32.6 RDW 14.2 H Plt Count 236 Seg Neutrophils % 69.9 Lymphocytes % 16.5 Monocytes % 11.7 Eosinophils % 1.6 Basophils % 0.3 Absolute Neutrophils 6.2 Absolute Lymphocytes 1.5 Absolute Monocytes 1.0 Absolute Eosinophils 0.1 Absolute Basophils 0.0 Sodium 141.4 Potassium 3.8 Chloride 104 Carbon Dioxide 29 Anion Gap 8 BUN 4 L Creatinine 0.54 Est GFR ( Amer) > 60 Est GFR (Non-Af Amer) > 60 Glucose 191 H Calcium 8.7 Magnesium 1.8 Urine Color YELLOW Urine Appearance CLEAR Urine pH 7.0 Ur Specific [place] 1.009 Urine Protein NEGATIVE Urine Glucose (UA) NEGATIVE Urine Ketones NEGATIVE Urine Blood NEGATIVE Urine Nitrite NEGATIVE Ur Leukocyte Esterase NEGATIVE Urine WBC (Auto) 1 Urine RBC (Auto) 1 05/30/17 06/01/17 18:20 19:00 Troponin I < 0.012 NT-Pro-B Natriuret Pep 240 EKG Comments: Telemetry shows mild sinus tachycardia. Impressions: Abdomen/Pelvis CT 05/20/17 00:00 IMPRESSION: Small 2 cm left renal mass with apparent rim calcification. If clinically warranted CT with IV contrast may be of value for further evaluation. Small bilateral adrenal nodules which appears stable when correlated with the previous study. Other findings as noted above Chest CT 05/20/17 00:00 IMPRESSION: Tiny bilateral pleural effusions are identified with associated predominately basilar airspace consolidation most consistent with atelectatic changes although I cannot exclude pneumonic consolidations. Tracheostomy tube and NG tube are identified in position. Other findings as noted above Chest X-Ray 06/01/17 18:47 IMPRESSION: No acute findings.Right IJ central venous catheter tip overlies the SVC above the level of the marilyn. Assessment & Plan - Diagnosis (1) Acute airway obstruction Is this a current diagnosis for this admission?: Yes (2) Angioedema Qualifiers: Encounter type: subsequent encounter Qualified Code(s): T78.3XXD - Angioneurotic edema, subsequent encounter Is this a current diagnosis for this admission?: Yes (3) GRACY (obstructive sleep apnea) Is this a current diagnosis for this admission?: Yes (4) COPD (chronic obstructive pulmonary disease) Qualifiers: COPD type: unspecified COPD Qualified Code(s): J44.9 - Chronic obstructive pulmonary disease, unspecified Is this a current diagnosis for this admission?: Yes (5) Diabetes Qualifiers: Diabetes mellitus type: type 2 Diabetes mellitus complication status: with diabetic arthropathy Diabetes mellitus complication detail: with other arthropathy Diabetes mellitus terminal gauger insulin use: with prison use Qualified Code(s): E11.618 - Type 2 diabetes mellitus with other diabetic arthropathy; Z79.4 - manager terminal (current) use of insulin; Z79.4 - manager terminal ( current) use of insulin; Z79.4 - manager terminal (current) use of insulin; Z79.4 - correction (current) use of insulin Is this a current diagnosis for this admission?: Yes (6) Hypertension Qualifiers: Hypertension type: essential hypertension Qualified Code(s): I10 - Essential (primary) hypertension Is this a current diagnosis for this admission?: Yes (7) Drug abuse Is this a current diagnosis for this admission?: Yes (8) Atelectasis, left Is this a current diagnosis for this admission?: Yes (9) CAD (coronary artery disease) Qualifiers: Coronary Disease-Associated Artery/Lesion type: [place] artery [place] vs. transplanted heart: [place] heart Associated angina: angina presence unspecified Qualified Code(s): I25.10 - Atherosclerotic heart disease of [place] coronary artery without angina pectoris Is this a current diagnosis for this admission?: Yes - Notes Notes: COPD: Patient will benefit from drug abuse cessation and also smoking cessation. Patient now understands this. Diabetes: Would leave management plans to physical trainer/hospitalist/PMD. Hypertension: Currently reasonably well controlled. Obesity: Stable CAD: Patient has history of CAD but currently EKG showing no significant ST-T wave changes. Monitor for any cardiac dysrhythmia, EKG changes etc. patient could not complete the stress test. Rest images will be reviewed. Recommend statins, beta-renetta. Unfortunately SHAMA inhibitors, angiotensin receptor blockers are contraindicated. Sleep apnea syndrome: Adequately treated with tracheostomy. Patient will benefit from long-term weight loss. Possible underlying depression: Patient may need to be evaluated for this further. Patient could be withdrawing from drugs. 2D echo results were reviewed. It shows normal LVEF, diastolic dysfunction. - Time Time with patient: Greater than 35 minutes - CODE STATUS was discussed, patient remains full code. Surrogate decision-maker unchanged. Multiple medical problems were addressed. More than 50% of the time spent coordinating care, discussing management plans with involved caregivers. Management plans discussed with involved personnels. Medical decision making was of moderate to high complexity, patient's has multiple comorbidities. Medications reviewed and adjusted accordingly: Yes
--- NOTE | 2017-06-02 12:56 | DRAGON STRESS TEST REPORT ---
INTRAVENOUS LEXISCAN CARDIOLITE STRESS TEST USING SINGLE PHOTON EMMISION COMPUTERIZED TOMOGRAPHIC. DATE OF PROCEDURE: June 01, 2017, INDICATION : Coronary artery disease CARDIAC RISK FACTORS: Diabetes, hypertension, dyslipidemia, history of drug abuse. RESTING EKG: Sinus rhythm, minor nonspecific ST-T wave changes, occasional VPCs. STRESS EKG: No significant changes noted with LexiScan bolus REASON FOR TERMINATION: Protocol. PROCEDURE REPORT: Baseline heart rate 95 beats per minute with blood pressure of 130/98. Patient had no significant complaints. Heart rate at 2 minutes post bolus 105 with a blood pressure of 143/91. 3 minutes post bolus heart rate 103 with blood pressure of 146/92. No significant EKG changes were noted. Patient had no significant complaints during the procedure or postprocedure. Patient injected with Aminophyllin 75 mg at 3 minutes or later after Lexiscan bolus. CONCLUSIONS: Normal EKG and hemodynamic response to IV LexiScan. NUCLEAR DATA: At rest the patient was given 15.28 millicuries of technetium 99 sestamibi injected intravenously. As per protocol rest gated SPECT images were obtained. On day of stress test, the patient was given intravenous LexiScan at a dose of 0.4 mg in 5 mL intravenously, followed by flush with normal saline. Subsequently the stress dose of 47.5 millicuries of technetium 99 sestamibi was injected intravenously. Patient however could not lay flat and therefore stress images were not completed. NUCLEAR INTERPRETATION: Both raw and processed data were used for interpretation. Visual, qualitative, computer-generated quantitative data was used. There was good myocardial uptake of technetium compound. Motion artifact and soft tissue attenuations were noted. Increased visceral uptake was noted. No definite rest perfusion defect noted. EKG gated imaging showed LV EF at 54 %, regional wall motion cannot be accurately commented upon and some getting abnormality suspected.. Lung heart ratio noted to be within normal limits 0.33. No significant extracardiac and abnormal radiotracer activities were noted. RV free wall uptake was noted to be WNL. IMPRESSION: Also refer to comments under nuclear interpretation. 1. No definitive areas of rest perfusion defect noted. Please note stress images could not be performed. 2. There is no definitive scintigraphic evidence of myocardial infarction/scar. 3. EKG gated imaging shows left ventricular ejection fraction of approx. 54 %. Regional wall motion cannot be accurately commented upon. RECOMMENDATIONS: Recommend patient has repeat stress testing. Alternative tests such as cardiac CTA could also be considered if clinically indicated. MTDD
[2017-06-02] MEDS: RISPERIDONE 1 MG TAB.RAPDIS PO SCH (21:42)
[2017-06-03] MEDS: DIAZEPAM INJ 10 MG/2 ML DISP.SYRIN IV PRN (01:21)
[2017-06-03] MEDS: IPRATROPIUM/ALBUTEROL 0.5-2.5 MG/3 ML AMPUL NEB SCH ×4 (02:02→20:27)
[2017-06-03] MEDS: INSULIN LISPRO 100 UNIT/ML 3 ML VIAL SUBCUT PRN ×3 (07:47→21:59)
[2017-06-03] MEDS: BUDESONIDE/FORMOTEROL 160-4.5 MCG 60 PUFF/6 GM MDI IH SCH ×2 (10:03→22:00)
[2017-06-03] MEDS: FLUTICASONE NASAL SPRAY 50 MCG/SPRY 120 SPRAY/16 GM NASL SCH (10:03)
[2017-06-03] MEDS: APIXABAN 5 MG TABLET PO SCH ×2 (10:04→17:09)
[2017-06-03] MEDS: RISPERIDONE 0.5 MG TAB.RAPDIS PO SCH (10:04)
[2017-06-03] MEDS: METOPROLOL TARTRATE 25 MG TABLET PO SCH ×2 (10:04→21:56)
[2017-06-03] MEDS: INSULIN GLARGINE,HUM.REC.ANLOG 300 UNIT/3 ML INSULN.PEN SUBCUT SCH (10:05)
[2017-06-03] MEDS: FAMOTIDINE INJ/PF 20 MG/2 ML SDV IV SCH ×2 (10:05→22:00)
--- NOTE | 2017-06-03 18:53 | PDOC PROGRESS REPORT ---
Subjective Progress Note for:: 06/03/17 Subjective:: Patient no longer wants to complete the stress test. He is denying any chest pain. Patient claims that he just wants to go home and is expecting to be discharged tomorrow. Medications reviewed. Telemetry strip shows mild intermittent sinus tachycardia but no other sustained tachycardia or bradycardia arrhythmias noted. Reason For Visit: ANGIOEDEMA, RESPIRATORY FAILURE Physical Exam Vital Signs: Temp Pulse Resp BP Pulse Ox 98.7 F 94 20 147/93 H 96 06/03/17 16:31 06/03/17 16:31 06/03/17 16:31 06/03/17 16:31 06/03/17 16:49 Intake & Output 06/02/17 06/03/17 06/04/17 06:59 06:59 06:59 Intake Total 2347 2329 1157 Output Total 575 1300 250 Balance 1772 1029 907 Weight 127.1 kg Exam: GENERAL: well-nourished and in no acute distress. Alert and oriented x3 HEAD: Atraumatic, normocephalic. EYES: Pupils equal round and reactive to light, extraocular movements intact, sclera anicteric, conjunctiva are normal. ENT: TMs normal, nares patent, oropharynx clear without exudates. Moist mucous membranes. No oral ulcerations or bleeding gums noted NECK: supple without lymphadenopathy. Central tracheostomy is noted. No cervical or axillary lymphadenopathy noted. Carotids are 2+, JVD WNL LUNGS: Respiration seems nonlabored, no significant accessory muscle action noted. Breath sounds clear to auscultation bilaterally and equal noted. No wheezes rales or rhonchi noted. No significant dullness noted on percussion. CHEST: Palpation of the chest wall shows no significant chest wall tenderness. No other significant abnormalities noted. 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 ABDOMEN: Soft, no significant tenderness appreciated, normoactive bowel sounds. No guarding, no rebound. No rigidity noted . No masses appreciated. EXTREMITIES: Pedal pulses are 1-2+, no calf tenderness noted. No clubbing or cyanosis.trace to 1+ pedal edema noted NEUROLOGICAL: Focused neurological exam showed no significant neurologic deficit. Normal speech, no focal weakness appreciated. PSYCH: Normal mood, normal affect. Judgment and insight within normal limits. SKIN: No significant ecchymosis, rash, ulcerations or signs of pruritus noted. MUSCULOSKELETAL EXAM: No significant joint swelling noted. Results Laboratory Results: 06/02/17 04:00 06/02/17 04:00 05/30/17 06/01/17 18:20 19:00 Troponin I < 0.012 NT-Pro-B Natriuret Pep 240 Impressions: Abdomen/Pelvis CT 05/20/17 00:00 IMPRESSION: Small 2 cm left renal mass with apparent rim calcification. If clinically warranted CT with IV contrast may be of value for further evaluation. Small bilateral adrenal nodules which appears stable when correlated with the previous study. Other findings as noted above Chest CT 05/20/17 00:00 IMPRESSION: Tiny bilateral pleural effusions are identified with associated predominately basilar airspace consolidation most consistent with atelectatic changes although I cannot exclude pneumonic consolidations. Tracheostomy tube and NG tube are identified in position. Other findings as noted above Chest X-Ray 06/01/17 18:47 IMPRESSION: No acute findings.Right IJ central venous catheter tip overlies the SVC above the level of the marilyn. Assessment & Plan - Diagnosis (1) Acute airway obstruction Is this a current diagnosis for this admission?: Yes (2) Angioedema Qualifiers: Encounter type: subsequent encounter Qualified Code(s): T78.3XXD - Angioneurotic edema, subsequent encounter Is this a current diagnosis for this admission?: Yes (3) GRACY (obstructive sleep apnea) Is this a current diagnosis for this admission?: Yes (4) COPD (chronic obstructive pulmonary disease) Qualifiers: COPD type: unspecified COPD Qualified Code(s): J44.9 - Chronic obstructive pulmonary disease, unspecified Is this a current diagnosis for this admission?: Yes (5) Diabetes Qualifiers: Diabetes mellitus type: type 2 Diabetes mellitus complication status: with diabetic arthropathy Diabetes mellitus complication detail: with other arthropathy Diabetes mellitus termite control servicer insulin use: with shelter use Qualified Code(s): E11.618 - Type 2 diabetes mellitus with other diabetic arthropathy; Z79.4 - intermodal customer service (current) use of insulin; Z79.4 - intermodal customer service ( current) use of insulin; Z79.4 - intermodal customer service (current) use of insulin; Z79.4 - detention (current) use of insulin Is this a current diagnosis for this admission?: Yes (6) Hypertension Qualifiers: Hypertension type: essential hypertension Qualified Code(s): I10 - Essential (primary) hypertension Is this a current diagnosis for this admission?: Yes (7) Drug abuse Is this a current diagnosis for this admission?: Yes (8) Atelectasis, left Is this a current diagnosis for this admission?: Yes (9) CAD (coronary artery disease) Qualifiers: Coronary Disease-Associated Artery/Lesion type: [place] artery [place] vs. transplanted heart: nikolai heart Associated angina: angina presence unspecified Qualified Code(s): I25.10 - Atherosclerotic heart disease of nikolai coronary artery without angina pectoris Is this a current diagnosis for this admission?: Yes - Notes Notes: Patient currently does not want to complete the stress test. Will consider completing this as an outpatient. Patient currently seems stable from cardiac standpoint. COPD: Patient will benefit from drug abuse cessation and also smoking cessation. Patient now understands this. Diabetes: Would leave management plans to corporate quality engineer/hospitalist/PMD. Hypertension: Currently reasonably well controlled. Obesity: Stable CAD: Patient has history of CAD but currently EKG showing no significant ST-T wave changes. Monitor for any cardiac dysrhythmia, EKG changes etc. patient could not complete the stress test. Rest images will be reviewed. Recommend statins, beta-renetta. Unfortunately SAHMA inhibitors, angiotensin receptor blockers are contraindicated. Sleep apnea syndrome: Adequately treated with tracheostomy. Patient will benefit from long-term weight loss. Possible underlying depression: Patient may need to be evaluated for this further. Patient could be withdrawing from drugs. 2D echo results were reviewed. It shows normal LVEF, diastolic dysfunction. - Time Time with patient: 15-25 minutes - CODE STATUS was discussed, patient remains full code. Surrogate decision-maker unchanged. Multiple medical problems were addressed. More than 50% of the time spent coordinating care, discussing management plans with involved caregivers. Management plans discussed with involved personnels. Medical decision making was of moderate to high complexity , patient's has multiple comorbidities. Medications reviewed and adjusted accordingly: Yes
[2017-06-03] MEDS: RISPERIDONE 1 MG TAB.RAPDIS PO SCH (21:56)
[2017-06-04] MEDS: IPRATROPIUM/ALBUTEROL 0.5-2.5 MG/3 ML AMPUL NEB SCH ×2 (02:24→07:57)
--- NOTE | 2017-06-04 06:37 | PDOC PROGRESS REPORT ---
Subjective Progress Note for:: 06/03/17 Subjective:: No complaints Review of systems All organ systems evaluated and negative except as in subjective All significant laboratories and diagnostics have been reviewed Reason For Visit: ANGIOEDEMA, RESPIRATORY FAILURE Physical Exam Vital Signs: Temp Pulse Resp BP Pulse Ox 98.2 F 98 19 135/65 H 95 06/03/17 03:48 06/03/17 07:00 06/03/17 03:48 06/03/17 03:48 06/03/17 03:48 Intake & Output 06/02/17 06/03/17 06/04/17 06:59 06:59 06:59 Intake Total 2347 2329 Output Total 575 1300 Balance 1772 1029 Weight 127.1 kg Results Laboratory Results: 06/02/17 04:00 06/02/17 04:00 06/02/17 04:00 Urine Color YELLOW Urine Appearance CLEAR Urine pH 7.0 Ur Specific [place] 1.009 Urine Protein NEGATIVE Urine Glucose (UA) NEGATIVE Urine Ketones NEGATIVE Urine Blood NEGATIVE Urine Nitrite NEGATIVE Ur Leukocyte Esterase NEGATIVE Urine WBC (Auto) 1 Urine RBC (Auto) 1 05/30/17 06/01/17 18:20 19:00 Troponin I < 0.012 NT-Pro-B Natriuret Pep 240 Impressions: Abdomen/Pelvis CT 05/20/17 00:00 IMPRESSION: Small 2 cm left renal mass with apparent rim calcification. If clinically warranted CT with IV contrast may be of value for further evaluation. Small bilateral adrenal nodules which appears stable when correlated with the previous study. Other findings as noted above Chest CT 05/20/17 00:00 IMPRESSION: Tiny bilateral pleural effusions are identified with associated predominately basilar airspace consolidation most consistent with atelectatic changes although I cannot exclude pneumonic consolidations. Tracheostomy tube and NG tube are identified in position. Other findings as noted above Chest X-Ray 06/01/17 18:47 IMPRESSION: No acute findings.Right IJ central venous catheter tip overlies the SVC above the level of the marilyn. Assessment & Plan - Diagnosis (1) Acute airway obstruction Is this a current diagnosis for this admission?: Yes Plan: Stable after tracheostomy. Now [facility] so to proceed with discahrge. (2) Anemia Qualifiers: Anemia type: unspecified type Qualified Code(s): D64.9 - Anemia, unspecified Is this a current diagnosis for this admission?: Yes Plan: Stable (3) Angioedema Qualifiers: Encounter type: subsequent encounter Qualified Code(s): T78.3XXD - Angioneurotic edema, subsequent encounter Is this a current diagnosis for this admission?: Yes Plan: Resolved (4) Atrial fibrillation Qualifiers: Atrial fibrillation type: chronic Qualified Code(s): I48.2 - Chronic atrial fibrillation Is this a current diagnosis for this admission?: Yes Plan: Stable (5) Chronic anticoagulation Is this a current diagnosis for this admission?: Yes Plan: Continue eliquis (6) Hypokalemia Is this a current diagnosis for this admission?: Yes Plan: Replaced (7) Diabetes Qualifiers: Diabetes mellitus type: type 2 Diabetes mellitus complication status: with diabetic arthropathy Diabetes mellitus complication detail: with other arthropathy Diabetes mellitus intermission coordinator insulin use: with penitentiary use Qualified Code(s): E11.618 - Type 2 diabetes mellitus with other diabetic arthropathy; Z79.4 - [facility] (current) use of insulin; Z79.4 - middle or intermediate school principal ( current) use of insulin; Z79.4 - [facility] (current) use of insulin; Z79.4 - [facility] (current) use of insulin Is this a current diagnosis for this admission?: Yes Plan: Patient made aware possibility he may be allergic to Novolog. Continue present treatment - Time Time Spent with patient: Less than 15 minutes Medications reviewed and adjusted accordingly: Yes Anticipated discharge: Home with Homehealth Within: within 48 hours - Inpatient Certification Based on my medical assessment, after consideration of the patient's comorbidities, presenting symptoms, or acuity I expect that the services needed warrant INPATIENT care.: Yes I certify that my determination is in accordance with my understanding of Medicare's requirements for reasonable and necessary INPATIENT services [42 CFR 412.3e].: Yes Medical Necessity: Need Close Monitoring Due to Risk of Patient Decompensation
[2017-06-04 07:07] LABS: HEMATOCRIT 36.8 % (37.9-51.0); HEMOGLOBIN 12.2 g/dL (13.5-17.0); MEAN CORPUSCULAR HEMOGLOBIN 28.9 pg (27.0-33.4); MEAN CORPUSCULAR HGB CONC 33.2 g/dL (32.0-36.0); MEAN CORPUSCULAR VOLUME 87 fl (80-97); PLATELET COUNT 245 10^3/uL (150-450); RED BLOOD COUNT 4.23 10^6/uL (4.35-5.55); RED CELL DISTRIBUTION WIDTH 14.5 % (11.5-14.0); WHITE BLOOD COUNT 7.6 10^3/uL (4.0-10.5)
[2017-06-04] MEDS: INSULIN LISPRO 100 UNIT/ML 3 ML VIAL SUBCUT PRN (07:31)
[2017-06-04] MEDS: FLUTICASONE NASAL SPRAY 50 MCG/SPRY 120 SPRAY/16 GM NASL SCH (09:35)
[2017-06-04] MEDS: BUDESONIDE/FORMOTEROL 160-4.5 MCG 60 PUFF/6 GM MDI IH SCH (09:35)
[2017-06-04] MEDS: INSULIN GLARGINE,HUM.REC.ANLOG 300 UNIT/3 ML INSULN.PEN SUBCUT SCH (09:35)
[2017-06-04] MEDS: RISPERIDONE 0.5 MG TAB.RAPDIS PO SCH (09:35)
[2017-06-04] MEDS: APIXABAN 5 MG TABLET PO SCH (09:36)
[2017-06-04] MEDS: CLONIDINE 0.1 MG/24 HR PATCH.TDWK TD SCH (09:36)
[2017-06-04] MEDS: METOPROLOL TARTRATE 25 MG TABLET PO SCH (09:36)
[2017-06-04] MEDS ORDERED: INSULIN LISPRO 100 UNIT/ML 3 ML VIAL SUBCUT SCH (11:00)
--- NOTE | 2017-06-04 12:55 | PDOC PROGRESS REPORT ---
Subjective Progress Note for:: 06/04/17 Subjective:: Patient claims to be doing fine. He does tend to be noted to get short of breath while talking. He is denying any chest pain. Patient denying any sustained palpitations. Telemetry strips reviewed. Medications reviewed. Telemetry strip shows mild intermittent sinus tachycardia but no other sustained tachycardia or bradycardia arrhythmias noted. Reason For Visit: ANGIOEDEMA, RESPIRATORY FAILURE Physical Exam Vital Signs: Temp Pulse Resp BP Pulse Ox 98.1 F 79 18 136/84 H 92 06/04/17 11:10 06/04/17 11:10 06/04/17 11:10 06/04/17 11:10 06/04/17 11:10 Intake & Output 06/03/17 06/04/17 06/05/17 06:59 06:59 06:59 Intake Total 2329 2 Output Total 1300 750 Balance 1029 1272 Weight 127.1 kg 127.4 kg Exam: GENERAL: well-nourished and in no acute distress. Alert and oriented x3 HEAD: Atraumatic, normocephalic. EYES: Pupils equal round and reactive to light, extraocular movements intact, sclera anicteric, conjunctiva are normal. ENT: TMs normal, nares patent, oropharynx clear without exudates. Moist mucous membranes. No oral ulcerations or bleeding gums noted NECK: supple without lymphadenopathy. Trachea is central with central tracheostomy. No cervical or axillary lymphadenopathy noted. Carotids are 2+, JVD WNL LUNGS: Respiration seems nonlabored, no significant accessory muscle action noted. Mild bilateral wheezes rales or rhonchi noted. No significant dullness noted on percussion. CHEST: Palpation of the chest wall shows no significant chest wall tenderness. No other significant abnormalities noted. 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 ABDOMEN: Soft, no significant tenderness appreciated, normoactive bowel sounds. No guarding, no rebound. No rigidity noted . No masses appreciated. EXTREMITIES: Pedal pulses are 1-2+, no calf tenderness noted. No clubbing or cyanosis. Negative pedal edema noted NEUROLOGICAL: Focused neurological exam showed no significant neurologic deficit. Normal speech, no focal weakness appreciated. PSYCH: Normal mood, normal affect. Judgment and insight within normal limits. SKIN: No significant ecchymosis, rash, ulcerations or signs of pruritus noted. MUSCULOSKELETAL EXAM: No significant joint swelling noted. Results Laboratory Results: 06/04/17 06:45 06/02/17 04:00 06/04/17 06:45 WBC 7.6 RBC 4.23 L Hgb 12.2 L Hct 36.8 L MCV 87 MCH 28.9 MCHC 33.2 RDW 14.5 H Plt Count 245 05/30/17 06/01/17 18:20 19:00 Troponin I < 0.012 NT-Pro-B Natriuret Pep 240 Impressions: Abdomen/Pelvis CT 05/20/17 00:00 IMPRESSION: Small 2 cm left renal mass with apparent rim calcification. If clinically warranted CT with IV contrast may be of value for further evaluation. Small bilateral adrenal nodules which appears stable when correlated with the previous study. Other findings as noted above Chest CT 05/20/17 00:00 IMPRESSION: Tiny bilateral pleural effusions are identified with associated predominately basilar airspace consolidation most consistent with atelectatic changes although I cannot exclude pneumonic consolidations. Tracheostomy tube and NG tube are identified in position. Other findings as noted above Chest X-Ray 06/01/17 18:47 IMPRESSION: No acute findings.Right IJ central venous catheter tip overlies the SVC above the level of the marilyn. Assessment & Plan - Diagnosis (1) Acute airway obstruction Is this a current diagnosis for this admission?: Yes (2) Angioedema Qualifiers: Encounter type: subsequent encounter Qualified Code(s): T78.3XXD - Angioneurotic edema, subsequent encounter Is this a current diagnosis for this admission?: Yes (3) GRACY (obstructive sleep apnea) Is this a current diagnosis for this admission?: Yes (4) COPD (chronic obstructive pulmonary disease) Qualifiers: COPD type: unspecified COPD Qualified Code(s): J44.9 - Chronic obstructive pulmonary disease, unspecified Is this a current diagnosis for this admission?: Yes (5) Diabetes Qualifiers: Diabetes mellitus type: type 2 Diabetes mellitus complication status: with diabetic arthropathy Diabetes mellitus complication detail: with other arthropathy Diabetes mellitus [facility] insulin use: with [facility] use Qualified Code(s): E11.618 - Type 2 diabetes mellitus with other diabetic arthropathy; Z79.4 - [facility] (current) use of insulin; Z79.4 - [facility] ( current) use of insulin; Z79.4 - terminal clerk (current) use of insulin; Z79.4 - terminal clerk (current) use of insulin Is this a current diagnosis for this admission?: Yes (6) Hypertension Qualifiers: Hypertension type: essential hypertension Qualified Code(s): I10 - Essential (primary) hypertension Is this a current diagnosis for this admission?: Yes (7) Drug abuse Is this a current diagnosis for this admission?: Yes (8) Atelectasis, left Is this a current diagnosis for this admission?: Yes (9) CAD (coronary artery disease) Qualifiers: Coronary Disease-Associated Artery/Lesion type: [place] artery [place] vs. transplanted heart: craig heart Associated angina: angina presence unspecified Qualified Code(s): I25.10 - Atherosclerotic heart disease of [place] coronary artery without angina pectoris Is this a current diagnosis for this admission?: Yes - Notes Notes: All previous lab work reviewed. Imaging studies reviewed. Last chest x-ray reviewed. Last chest x-ray showed cardiomegaly but without any CHF. Patient seems to be stable from cardiac standpoint. Patient can follow-up with me if he wishes. At this point will sign off. Please reconsult if needed. - Time Time with patient: 15-25 minutes - CODE STATUS was discussed, patient remains full code. Surrogate decision-maker unchanged. Multiple medical problems were addressed. More than 50% of the time spent coordinating care, discussing management plans with involved caregivers. Management plans discussed with involved personnels. Medical decision making was of moderate to high complexity , patient's has multiple comorbidities. Medications reviewed and adjusted accordingly: Yes
[2017-06-04 13:42] VITALS: BP 149/91
--- NOTE | 2017-06-04 18:09 | PDOC DISCHARGE SUMMARY ---
General - Admit/Disc Date/PCP Admission Date/Primary Care Provider: 05/19/17 04:18 Discharge Date: 06/04/17 - Discharge Diagnosis (1) Angioedema Is this a current diagnosis for this admission?: Yes (2) Acute airway obstruction Is this a current diagnosis for this admission?: Yes (3) Acute respiratory failure Is this a current diagnosis for this admission?: Yes (4) HAP (hospital-acquired pneumonia) Is this a current diagnosis for this admission?: Yes (5) Anemia Is this a current diagnosis for this admission?: Yes (6) Atrial fibrillation Is this a current diagnosis for this admission?: Yes (7) Chronic anticoagulation Is this a current diagnosis for this admission?: Yes (8) Hypokalemia Is this a current diagnosis for this admission?: Yes (9) Diabetes Is this a current diagnosis for this admission?: Yes (10) Atelectasis, left Is this a current diagnosis for this admission?: Yes (11) Diastolic dysfunction without heart failure Is this a current diagnosis for this admission?: Yes - Additional Information Resuscitation Status: Full Code Discharge Diet: Diabetic Discharge Activity: Activity As Tolerated Home Medications: Albuterol Sulfate [Proair HFA Inhalation Aerosol 8.5 gm MDI] 2 puff IH Q6HP PRN 05/19/17 Amitriptyline HCl [Elavil 25 mg Tablet] 75 mg PO QHS 05/19/17 Amlodipine Besylate [Norvasc 10 mg Tablet] 10 mg PO DAILY 05/19/17 Apixaban [Eliquis 5 mg Tablet] 5 mg PO Q12 05/19/17 Ascorbic Acid [Vitamin C 500 mg Tablet] 500 mg PO DAILY 05/19/17 Aspirin [Ecotrin 81 mg EC Tablet] 81 mg PO DAILY 05/19/17 Budesonide/Formoterol Fumarate [Symbicort 160-4.5 Mcg Inhaler] 2 puff IH Q12 10/27 Dextrose [Glucose] 1 tab PO QIDP PRN 05/19/17 Epinephrine [Epipen] 3 ml IM ONCEP PRN 05/19/17 Ferrous Sulfate 324 mg PO DAILY 05/19/17 Fluticasone Propionate [Flonase Nasal [place] 50 Mcg/[place] 16 gm] 1 spray NASL DAILY 05/19/17 Furosemide [Lasix 20 mg Tablet] 20 mg PO DAILY 05/19/17 Gabapentin [Neurontin 100 mg Capsule] 100 mg PO Q8 05/19/17 Hydrochlorothiazide [Hydrodiuril 25 mg Tablet] 25 mg PO DAILY 05/19/17 Insulin Aspart [Novolog Flexpen] 18 units SQ [id number] 05/19/17 Insulin Aspart [Novolog Flexpen] 25 units SQ BIDLS 05/19/17 Insulin Glargine,Hum.rec.anlog [Lantus Solostar] 60 unit SQ QHS 05/19/17 Isosorbide Mononitrate [Isosorbide Mononitrate ER] 30 mg PO QAM 05/19/17 Metformin HCl [Glucophage] 1,000 mg PO BIDACBS 05/19/17 Metoprolol Tartrate [Lopressor 50 mg Tablet] 25 mg PO Q12 05/19/17 Omeprazole 40 mg PO DAILY 05/19/17 Pravastatin Sodium [Pravachol] 20 mg PO QHS 05/19/17 Ranitidine HCl [Zantac 150 mg Tablet] 150 mg PO QHS 05/19/17 Sildenafil Citrate [Viagra] 100 mg PO DAILYP PRN 05/19/17 Terazosin HCl [Hytrin] 4 mg PO QHS 05/19/17 Tiotropium [place] [Spiriva Handihaler 5 Cap/Kit (18 Mcg/Cap)] 1 puff IH DAILY 05/19/17 Tramadol HCl [Ultram 50 mg Tablet] 50 mg PO Q6 05/19/17 History of Present Illness History of Present Illness: SHANAE TSANG JR is a 61 year old male with a history of recurrent angioedema was brought to the ER by his with complaints of difficulty swallowing and difficulty breathing. Patient has had recurrent hospitalizations for angioedema resulting in intubation. Intubation was attempted and unsuccessful. Surgery was called for emergent tracheostomy. Etiology of angioedema was undetermined. Patient required admission to ICU under the hospitalist service. Hospital Course Hospital Course: Patient was admitted under the hospitalist service to ICU. He required ventilatory support and Dr. Humphries assisted with ventilator management. While in intensive care unit he developed what was deemed to be a hospital-acquired pneumonia and was treated for that purpose. Patient was evaluated for the cardiac standpoint of view. Nuclear SPECT test was negative. Echocardiogram demonstrated a grade 2 diastolic dysfunction. However, patient was euvolemic. Patient condition improved. He was extubated on May 26 and he was transitioned to trach collar. Decision was made to keep tracheostomy in place since it was still uncertain as to the etiology of angioedema. Patient has been recommended to follow up with jamb cutter at [facility] for further evaluation of angioedema and possible triggers. Patient will be following up with PCP who will help to coordinate this follow-up. Patient had been made aware that another possibility is that he is on NovoLog and this medication can cause angioedema to susceptible patients. While hospitalized he received teaching from respiratory regarding trach care. His hospitalization was somewhat delayed since patient's [facility] and there was some delay obtaining all the equipment needed at home for tracheostomy care. Turns out that on the day of discharge we found out that the equipment was not going to be available at his house but until next week. Patient informed case management that he was not going to stay any longer as he had all that he needed at home for trach care. Considering this information and reassurance from his part prompted to discharge patient. While hospitalized blood sugars were elevated due to dietary indiscretion since his would bring outside food. On the overall considering his dramtic initial presentation with angioedema resulting in acute airway obstruction with respiratory failure which required emergent tracheostomy, patient request recuperated well. All electrolyte abnormalities were replaced. He was discharged discharge under stable condition Physical Exam Vital Signs: Temp Pulse Resp BP Pulse Ox 98.1 F 79 18 136/84 H 92 06/04/17 11:10 06/04/17 11:10 06/04/17 11:10 06/04/17 11:10 06/04/17 11:10 Intake & Output 06/03/17 06/04/17 06/05/17 06:59 06:59 06:59 Intake Total 2329 2022 Output Total 1300 750 Balance 1029 1272 Weight 127.1 kg 127.4 kg Results Laboratory Results: 06/04/17 06:45 06/02/17 04:00 06/04/17 06:45 WBC 7.6 RBC 4.23 L Hgb 12.2 L Hct 36.8 L MCV 87 MCH 28.9 MCHC 33.2 RDW 14.5 H Plt Count 245 05/30/17 06/01/17 18:20 19:00 Troponin I < 0.012 NT-Pro-B Natriuret Pep 240 Impressions: Abdomen/Pelvis CT 05/20/17 00:00 IMPRESSION: Small 2 cm left renal mass with apparent rim calcification. If clinically warranted CT with IV contrast may be of value for further evaluation. Small bilateral adrenal nodules which appears stable when correlated with the previous study. Other findings as noted above Chest CT 05/20/17 00:00 IMPRESSION: Tiny bilateral pleural effusions are identified with associated predominately basilar airspace consolidation most consistent with atelectatic changes although I cannot exclude pneumonic consolidations. Tracheostomy tube and NG tube are identified in position. Other findings as noted above Chest X-Ray 06/01/17 18:47 IMPRESSION: No acute findings.Right IJ central venous catheter tip overlies the SVC above the level of the marilyn. Qualifiers - * PATEINT BEING DISCHARGED WITH ANY OF THE FOLLOWING DIAGNOSIS?: No
--- NOTE | 2017-06-05 20:12 | PDOC PROGRESS REPORT ---
Subjective Progress Note for:: 05/21/17 Subjective:: lethargic Reason For Visit: ANGIOEDEMA, RESPIRATORY FAILURE Physical Exam Vital Signs: Temp Pulse Resp BP Pulse Ox 99.0 F 100 21 H 135/92 H 99 05/21/17 08:00 05/21/17 08:00 05/21/17 08:00 05/21/17 08:00 05/21/17 08:00 Intake & Output 05/20/17 05/21/17 05/22/17 06:59 06:59 06:59 Intake Total 4320 2763 Output Total 2630 5525 300 Balance 1690 -2762 -300 Weight 139.3 kg 135 kg General appearance: PRESENT: no acute distress, disheveled, morbidly obese, well -developed, well-nourished. ABSENT: cooperative Head exam: PRESENT: atraumatic, normocephalic Eye exam: PRESENT: conjunctiva pale, EOMI. ABSENT: nystagmus, periorbital swelling, scleral icterus Mouth exam: PRESENT: dry mucosa, neck supple, tongue midline - protusion decreased Neck exam: PRESENT: tracheostomy. ABSENT: carotid bruit, JVD, lymphadenopathy, thyromegaly, tracheal deviation Respiratory exam: PRESENT: decreased breath sounds, prolonged expiratory phas, rales, rhonchi, symmetrical, unlabored, wheezes. ABSENT: retraction, stridor, tachypnea Cardiovascular exam: PRESENT: RRR, +S1, +S2, tachycardia Pulses: PRESENT: normal radial pulses GI/Abdominal exam: PRESENT: diminished bowel sounds, soft Extremities exam: PRESENT: pedal edema. ABSENT: calf tenderness, clubbing, full ROM Musculoskeletal exam: PRESENT: deformity, dislocation Skin exam: PRESENT: dry, warm Results Laboratory Results: 05/21/17 03:46 05/21/17 03:46 05/20/17 05/21/17 05/21/17 13:40 03:46 03:46 WBC 8.4 RBC 4.13 L Hgb 12.2 L Hct 36.9 L MCV 89 MCH 29.5 MCHC 33.0 RDW 14.6 H Plt Count 132 L Seg Neutrophils % 69.3 Lymphocytes % 15.2 Monocytes % 14.6 H Eosinophils % 0.7 Basophils % 0.2 Absolute Neutrophils 5.8 Absolute Lymphocytes 1.3 Absolute Monocytes 1.2 Absolute Eosinophils 0.1 Absolute Basophils 0.0 Carbonic Acid 1.37 H HCO3/H2CO3 Ratio 20:1 ABG pH 7.40 ABG pCO2 45.5 H ABG pO2 55.0 L ABG HCO3 27.8 H ABG O2 Saturation 88.6 L ABG Base Excess 2.6 FiO2 40% Sodium 139.3 Potassium 3.8 Chloride 106 Carbon Dioxide 28 Anion Gap 5 BUN 8 Creatinine 0.62 Est GFR ( Amer) > 60 Est GFR (Non-Af Amer) > 60 Glucose 155 H Calcium 7.8 L Magnesium 1.8 Total Bilirubin 0.6 AST 9 L ALT 21 Alkaline Phosphatase 58 Total Protein 5.2 L Albumin 2.9 L 05/21/17 04:32 WBC RBC Hgb Hct MCV MCH MCHC RDW Plt Count Seg Neutrophils % Lymphocytes % Monocytes % Eosinophils % Basophils % Absolute Neutrophils Absolute Lymphocytes Absolute Monocytes Absolute Eosinophils Absolute Basophils Carbonic Acid 1.23 HCO3/H2CO3 Ratio 21:1 ABG pH 7.42 ABG pCO2 41.0 ABG pO2 79.0 L ABG HCO3 26.2 H ABG O2 Saturation 95.9 ABG Base Excess 1.7 FiO2 40% Sodium Potassium Chloride Carbon Dioxide Anion Gap BUN Creatinine Est GFR ( Amer) Est GFR (Non-Af Amer) Glucose Calcium Magnesium Total Bilirubin AST ALT Alkaline Phosphatase Total Protein Albumin Impressions: Abdomen/Pelvis CT 05/20/17 00:00 IMPRESSION: Small 2 cm left renal mass with apparent rim calcification. If clinically warranted CT with IV contrast may be of value for further evaluation. Small bilateral adrenal nodules which appears stable when correlated with the previous study. Other findings as noted above Chest CT 05/20/17 00:00 IMPRESSION: Tiny bilateral pleural effusions are identified with associated predominately basilar airspace consolidation most consistent with atelectatic changes although I cannot exclude pneumonic consolidations. Tracheostomy tube and NG tube are identified in position. Other findings as noted above Chest X-Ray 05/21/17 06:00 IMPRESSION: 1. Persistent left basilar opacity and left pleural effusion. Stable appearance of the chest. Assessment & Plan - Diagnosis (1) Acute airway obstruction Is this a current diagnosis for this admission?: Yes Plan: Resulting in subsequent tracheostomy (2) Anaphylaxis Qualifiers: Encounter type: initial encounter Qualified Code(s): T78.2XXA - Anaphylactic shock, unspecified, initial encounter Is this a current diagnosis for this admission?: Yes Plan: multiple occurences (3) Atrial fibrillation Qualifiers: Atrial fibrillation type: chronic Qualified Code(s): I48.2 - Chronic atrial fibrillation Is this a current diagnosis for this admission?: Yes Plan: As per cardiology (4) COPD (chronic obstructive pulmonary disease) Qualifiers: COPD type: unspecified COPD Qualified Code(s): J44.9 - Chronic obstructive pulmonary disease, unspecified Is this a current diagnosis for this admission?: Yes Plan: min wheezes (5) Chronic anticoagulation Is this a current diagnosis for this admission?: Yes - Time Total Critical Time (Minutes): 40
--- NOTE | 2017-06-05 20:15 | PDOC PROGRESS REPORT ---
Subjective Progress Note for:: 05/22/17 Subjective:: lethargic Reason For Visit: ANGIOEDEMA, RESPIRATORY FAILURE Physical Exam Vital Signs: Temp Pulse Resp BP Pulse Ox 99.9 F 106 H 24 H 130/90 H 97 05/22/17 08:02 05/22/17 08:10 05/22/17 08:10 05/22/17 08:02 05/22/17 08:10 Intake & Output 05/21/17 05/22/17 05/23/17 06:59 06:59 06:59 Intake Total 2763 2152 Output Total 5525 3680 150 Balance -2762 -1528 -150 Weight 135 kg 133.7 kg General appearance: PRESENT: no acute distress, disheveled, morbidly obese, well -developed. ABSENT: cooperative Head exam: PRESENT: atraumatic, normocephalic Eye exam: PRESENT: conjunctiva pale, EOMI. ABSENT: nystagmus, periorbital swelling, scleral icterus Mouth exam: PRESENT: dry mucosa, neck supple, tongue midline Neck exam: PRESENT: tracheostomy. ABSENT: carotid bruit, JVD, lymphadenopathy, thyromegaly, tracheal deviation Respiratory exam: PRESENT: decreased breath sounds, prolonged expiratory phas, rales, rhonchi, symmetrical, unlabored, wheezes. ABSENT: retraction, stridor, tachypnea Cardiovascular exam: PRESENT: irregular rhythm Pulses: PRESENT: normal radial pulses GI/Abdominal exam: PRESENT: diminished bowel sounds, soft Extremities exam: PRESENT: pedal edema. ABSENT: calf tenderness, clubbing Musculoskeletal exam: PRESENT: full ROM. ABSENT: deformity, dislocation Neurological exam: PRESENT: awake Skin exam: PRESENT: dry, warm Results Laboratory Results: 05/22/17 05:03 05/22/17 05:03 05/22/17 05/22/17 05/22/17 05:03 05:03 05:05 WBC 7.6 RBC 4.00 L Hgb 11.9 L Hct 35.6 L MCV 89 MCH 29.7 MCHC 33.3 RDW 14.7 H Plt Count 126 L Seg Neutrophils % 71.9 Lymphocytes % 12.7 L Monocytes % 13.5 H Eosinophils % 1.5 Basophils % 0.4 Absolute Neutrophils 5.5 Absolute Lymphocytes 1.0 Absolute Monocytes 1.0 Absolute Eosinophils 0.1 Absolute Basophils 0.0 Carbonic Acid 1.27 HCO3/H2CO3 Ratio 22:1 ABG pH 7.44 ABG pCO2 42.1 ABG pO2 60.9 L ABG HCO3 28.1 H ABG O2 Saturation 92.2 L ABG Base Excess 3.7 FiO2 35% Sodium 139.3 Potassium 3.7 Chloride 106 Carbon Dioxide 25 Anion Gap 8 BUN 7 Creatinine 0.63 Est GFR ( Amer) > 60 Est GFR (Non-Af Amer) > 60 Glucose 155 H Calcium 8.0 L Magnesium 1.8 Total Bilirubin 0.5 AST 8 L ALT 20 L Alkaline Phosphatase 50 Total Protein 5.2 L Albumin 2.9 L Impressions: Abdomen/Pelvis CT 05/20/17 00:00 IMPRESSION: Small 2 cm left renal mass with apparent rim calcification. If clinically warranted CT with IV contrast may be of value for further evaluation. Small bilateral adrenal nodules which appears stable when correlated with the previous study. Other findings as noted above Chest CT 05/20/17 00:00 IMPRESSION: Tiny bilateral pleural effusions are identified with associated predominately basilar airspace consolidation most consistent with atelectatic changes although I cannot exclude pneumonic consolidations. Tracheostomy tube and NG tube are identified in position. Other findings as noted above Assessment & Plan - Diagnosis (1) Acute respiratory failure Qualifiers: Respiratory failure complication: hypoxia and hypercapnia Qualified Code(s) : J96.01 - Acute respiratory failure with hypoxia; J96.02 - Acute respiratory failure with hypercapnia; J96.02 - Acute respiratory failure with hypercapnia; J96.02 - Acute respiratory failure with hypercapnia Is this a current diagnosis for this admission?: Yes Plan: obstructed airway (2) Anaphylaxis Qualifiers: Encounter type: subsequent encounter Qualified Code(s): T78.2XXD - Anaphylactic shock, unspecified, subsequent encounter Is this a current diagnosis for this admission?: Yes (3) Atrial fibrillation Qualifiers: Atrial fibrillation type: chronic Qualified Code(s): I48.2 - Chronic atrial fibrillation Is this a current diagnosis for this admission?: Yes Plan: As per cardiology (4) COPD (chronic obstructive pulmonary disease) Qualifiers: COPD type: unspecified COPD Qualified Code(s): J44.9 - Chronic obstructive pulmonary disease, unspecified Is this a current diagnosis for this admission?: Yes Plan: min wheezes - Time Total Critical Time (Minutes): 40
--- NOTE | 2017-06-05 20:18 | PDOC PROGRESS REPORT ---
Subjective Progress Note for:: 05/23/17 Subjective:: lethargic Reason For Visit: ANGIOEDEMA, RESPIRATORY FAILURE Physical Exam Vital Signs: Temp Pulse Resp BP Pulse Ox 101.3 F H 111 H 28 H 125/80 99 05/23/17 12:00 05/23/17 08:38 05/23/17 08:38 05/23/17 06:02 05/23/17 11:46 Intake & Output 05/22/17 05/23/17 05/24/17 06:59 06:59 06:59 Intake Total 2152 2259 Output Total 3680 2315 295 Balance -1528 -56 -295 Weight 133.7 kg 132.9 kg General appearance: PRESENT: no acute distress, disheveled, morbidly obese, well -nourished Head exam: PRESENT: atraumatic, normocephalic Eye exam: PRESENT: conjunctiva pale, EOMI. ABSENT: nystagmus, periorbital swelling, scleral icterus Mouth exam: PRESENT: dry mucosa, neck supple, tongue midline Neck exam: PRESENT: tracheostomy. ABSENT: carotid bruit, JVD, lymphadenopathy, thyromegaly, tracheal deviation Respiratory exam: PRESENT: decreased breath sounds, prolonged expiratory phas, rales, rhonchi, symmetrical, unlabored. ABSENT: retraction, stridor, tachypnea Cardiovascular exam: PRESENT: irregular rhythm, tachycardia Pulses: PRESENT: normal radial pulses GI/Abdominal exam: PRESENT: diminished bowel sounds, soft Extremities exam: ABSENT: calf tenderness, clubbing Musculoskeletal exam: ABSENT: deformity, dislocation Neurological exam: PRESENT: awake Skin exam: PRESENT: dry, warm Results Laboratory Results: 05/23/17 05:29 05/23/17 05:29 05/23/17 05/23/17 05/23/17 04:26 05:29 05:29 WBC 5.0 RBC 3.71 L Hgb 11.0 L Hct 33.4 L MCV 90 MCH 29.7 MCHC 33.0 RDW 14.4 H Plt Count 124 L Seg Neutrophils % Not Reportable Lymphocytes % Not Reportable Monocytes % Not Reportable Eosinophils % Not Reportable Basophils % Not Reportable Absolute Neutrophils Not Reportable Absolute Lymphocytes Not Reportable Absolute Monocytes Not Reportable Absolute Eosinophils Not Reportable Absolute Basophils Not Reportable Carbonic Acid 1.15 HCO3/H2CO3 Ratio 19:1 ABG pH 7.39 ABG pCO2 38.3 ABG pO2 65.6 L ABG HCO3 22.6 ABG O2 Saturation 92.8 L ABG Base Excess -2.1 FiO2 30% Sodium 139.7 Potassium 3.4 L Chloride 110 H Carbon Dioxide 23 Anion Gap 7 BUN 10 Creatinine 0.72 Est GFR ( Amer) > 60 Est GFR (Non-Af Amer) > 60 Glucose 120 H Calcium 7.3 L Phosphorus 3.7 Magnesium 1.7 Total Bilirubin 0.4 AST 21 ALT 23 Alkaline Phosphatase 38 Total Protein 4.7 L Albumin 2.4 L 05/20/17 02:11 Tracheal Aspirate Gram Stain - Final 05/20/17 02:11 Tracheal Aspirate Sputum Culture - Final Group B Beta Streptococcus Haemophilus Influenzae Normal Katya Impressions: Abdomen/Pelvis CT 05/20/17 00:00 IMPRESSION: Small 2 cm left renal mass with apparent rim calcification. If clinically warranted CT with IV contrast may be of value for further evaluation. Small bilateral adrenal nodules which appears stable when correlated with the previous study. Other findings as noted above Chest CT 05/20/17 00:00 IMPRESSION: Tiny bilateral pleural effusions are identified with associated predominately basilar airspace consolidation most consistent with atelectatic changes although I cannot exclude pneumonic consolidations. Tracheostomy tube and NG tube are identified in position. Other findings as noted above Chest X-Ray 05/23/17 00:00 IMPRESSION: 1. Persistent left basilar opacity and left pleural effusion. Stable appearance of the chest. Assessment & Plan - Diagnosis (1) Acute airway obstruction Is this a current diagnosis for this admission?: Yes Plan: Resulting in subsequent tracheostomy (2) Anaphylaxis Qualifiers: Encounter type: initial encounter Qualified Code(s): T78.2XXA - Anaphylactic shock, unspecified, initial encounter Is this a current diagnosis for this admission?: Yes Plan: multiple occurences (3) Atrial fibrillation Qualifiers: Atrial fibrillation type: chronic Qualified Code(s): I48.2 - Chronic atrial fibrillation Is this a current diagnosis for this admission?: Yes Plan: As per cardiology current RVR (4) COPD (chronic obstructive pulmonary disease) Qualifiers: COPD type: unspecified COPD Qualified Code(s): J44.9 - Chronic obstructive pulmonary disease, unspecified Is this a current diagnosis for this admission?: Yes Plan: min wheezes - Time Total Critical Time (Minutes): 35
--- NOTE | 2017-06-05 20:19 | PDOC PROGRESS REPORT ---
Subjective Progress Note for:: 05/26/17 Subjective:: lethargic Reason For Visit: ANGIOEDEMA, RESPIRATORY FAILURE Physical Exam Vital Signs: Temp Pulse Resp BP Pulse Ox 99.1 F 105 H 15 134/89 H 97 05/26/17 08:00 05/26/17 08:00 05/26/17 08:00 05/26/17 08:00 05/26/17 08:00 Intake & Output 05/25/17 05/26/17 05/27/17 06:59 06:59 06:59 Intake Total 3099 2661 Output Total 4295 2270 Balance -1196 391 Weight 130.7 kg 131.7 kg General appearance: PRESENT: no acute distress, disheveled, morbidly obese, well -nourished. ABSENT: cooperative Eye exam: PRESENT: conjunctiva pale. ABSENT: nystagmus, periorbital swelling, scleral icterus Mouth exam: PRESENT: dry mucosa, neck supple, tongue midline Neck exam: PRESENT: tracheostomy. ABSENT: carotid bruit, JVD, lymphadenopathy, thyromegaly, tracheal deviation Respiratory exam: PRESENT: decreased breath sounds, prolonged expiratory phas, rales, rhonchi, symmetrical, unlabored, wheezes. ABSENT: retraction, stridor, tachypnea Cardiovascular exam: PRESENT: irregular rhythm, tachycardia Pulses: PRESENT: normal radial pulses GI/Abdominal exam: PRESENT: diminished bowel sounds Extremities exam: PRESENT: pedal edema. ABSENT: calf tenderness, clubbing Musculoskeletal exam: PRESENT: deformity, dislocation Neurological exam: PRESENT: awake Skin exam: PRESENT: dry, warm Results Laboratory Results: 05/26/17 05:27 05/25/17 04:53 05/26/17 05/26/17 00:28 05:27 WBC 6.3 RBC 3.97 L Hgb 11.7 L Hct 35.2 L MCV 89 MCH 29.4 MCHC 33.1 RDW 14.4 H Plt Count 152 Urine Color YELLOW Urine Appearance SLIGHTLY-CLOUDY Urine pH 7.0 Ur Specific [place] 1.025 Urine Protein 100 H Urine Glucose (UA) >=500 H Urine Ketones NEGATIVE Urine Blood LARGE H Urine Nitrite NEGATIVE Ur Leukocyte Esterase NEGATIVE Urine WBC (Auto) 5 Urine RBC (Auto) >182 05/23/17 08:30 Tracheal Aspirate Gram Stain - Final 05/23/17 08:30 Tracheal Aspirate Sputum Culture - Final Klebsiella Pneumoniae C.albicans/C.dubliniensis Greatly Reduced Normal Katya 05/20/17 06:50 Blood Blood Culture - Final NO GROWTH IN 5 DAYS 05/20/17 06:58 Blood Blood Culture - Final NO GROWTH IN 5 DAYS Impressions: Abdomen/Pelvis CT 05/20/17 00:00 IMPRESSION: Small 2 cm left renal mass with apparent rim calcification. If clinically warranted CT with IV contrast may be of value for further evaluation. Small bilateral adrenal nodules which appears stable when correlated with the previous study. Other findings as noted above Chest CT 05/20/17 00:00 IMPRESSION: Tiny bilateral pleural effusions are identified with associated predominately basilar airspace consolidation most consistent with atelectatic changes although I cannot exclude pneumonic consolidations. Tracheostomy tube and NG tube are identified in position. Other findings as noted above Chest X-Ray 05/25/17 06:00 IMPRESSION: NO CHANGE IN APPEARANCE OF THE CHEST. Assessment & Plan - Diagnosis (1) Obesity hypoventilation syndrome Is this a current diagnosis for this admission?: Yes Plan: History of PCO2 elevation refer to 04/23/2017 (2) Angioedema Qualifiers: Encounter type: subsequent encounter Qualified Code(s): T78.3XXD - Angioneurotic edema, subsequent encounter Is this a current diagnosis for this admission?: Yes Plan: Recurrent (3) Witnessed episode of apnea Is this a current diagnosis for this admission?: Yes Plan: Per spouse and staff - Time Total Critical Time (Minutes): 35
--- NOTE | 2017-06-05 20:20 | PDOC PROGRESS REPORT ---
Subjective Progress Note for:: 06/02/17 Reason For Visit: ANGIOEDEMA, RESPIRATORY FAILURE Physical Exam Vital Signs: Temp Pulse Resp BP Pulse Ox 98.1 F 79 18 149/91 H 92 06/04/17 13:41 06/04/17 13:41 06/04/17 13:41 06/04/17 13:41 06/04/17 13:41 Intake & Output 06/03/17 06/04/17 06/05/17 06:59 06:59 06:59 Intake Total 2329 2022 Output Total 1300 750 Balance 1029 1272 Weight 127.1 kg 127.4 kg Results Laboratory Results: 06/04/17 06:45 06/02/17 04:00 06/04/17 06:45 WBC 7.6 RBC 4.23 L Hgb 12.2 L Hct 36.8 L MCV 87 MCH 28.9 MCHC 33.2 RDW 14.5 H Plt Count 245 05/30/17 06/01/17 18:20 19:00 Troponin I < 0.012 NT-Pro-B Natriuret Pep 240 Impressions: Abdomen/Pelvis CT 05/20/17 00:00 IMPRESSION: Small 2 cm left renal mass with apparent rim calcification. If clinically warranted CT with IV contrast may be of value for further evaluation. Small bilateral adrenal nodules which appears stable when correlated with the previous study. Other findings as noted above Chest CT 05/20/17 00:00 IMPRESSION: Tiny bilateral pleural effusions are identified with associated predominately basilar airspace consolidation most consistent with atelectatic changes although I cannot exclude pneumonic consolidations. Tracheostomy tube and NG tube are identified in position. Other findings as noted above Chest X-Ray 06/01/17 18:47 IMPRESSION: No acute findings.Right IJ central venous catheter tip overlies the SVC above the level of the marilyn. Assessment & Plan - Diagnosis (1) Obesity hypoventilation syndrome Is this a current diagnosis for this admission?: Yes (2) Angioedema Qualifiers: Encounter type: subsequent encounter Qualified Code(s): T78.3XXD - Angioneurotic edema, subsequent encounter Is this a current diagnosis for this admission?: Yes (3) Witnessed episode of apnea Is this a current diagnosis for this admission?: Yes - Time Total Critical Time (Minutes): 40
--- NOTE | 2017-06-05 20:23 | PDOC PROGRESS REPORT ---
Subjective Progress Note for:: 05/25/17 Subjective:: lethargic Reason For Visit: ANGIOEDEMA, RESPIRATORY FAILURE Physical Exam Vital Signs: Temp Pulse Resp BP Pulse Ox 99.0 F 107 H 21 H 133/89 H 96 05/25/17 08:00 05/25/17 08:00 05/25/17 08:00 05/25/17 08:00 05/25/17 08:00 Intake & Output 05/24/17 05/25/17 05/26/17 06:59 06:59 06:59 Intake Total 2748 3099 Output Total 1740 4295 220 Balance 1008 -1196 -220 Weight 133.6 kg 130.7 kg General appearance: PRESENT: no acute distress, disheveled, morbidly obese, well -nourished Head exam: PRESENT: atraumatic, normocephalic Eye exam: PRESENT: EOMI. ABSENT: conjunctiva pale, nystagmus, periorbital swelling, scleral icterus Mouth exam: PRESENT: dry mucosa, neck supple, tongue midline Teeth exam: PRESENT: poor dentation Neck exam: PRESENT: tracheostomy. ABSENT: carotid bruit, JVD, lymphadenopathy, thyromegaly, tracheal deviation Respiratory exam: PRESENT: decreased breath sounds, prolonged expiratory phas, rales, rhonchi, symmetrical, unlabored. ABSENT: retraction, stridor, tachypnea Cardiovascular exam: PRESENT: irregular rhythm, tachycardia Pulses: PRESENT: normal radial pulses GI/Abdominal exam: PRESENT: diminished bowel sounds, soft Extremities exam: ABSENT: calf tenderness, clubbing Musculoskeletal exam: ABSENT: deformity, dislocation Neurological exam: PRESENT: awake Skin exam: PRESENT: dry, warm Results Laboratory Results: 05/25/17 04:53 05/25/17 04:53 05/25/17 05/25/17 05/25/17 04:53 04:53 04:53 WBC 5.5 RBC 3.87 L Hgb 11.3 L Hct 34.2 L MCV 88 MCH 29.3 MCHC 33.1 RDW 14.3 H Plt Count 144 L Seg Neutrophils % 62.1 Lymphocytes % 20.1 Monocytes % 15.8 H Eosinophils % 1.8 Basophils % 0.2 Absolute Neutrophils 3.4 Absolute Lymphocytes 1.1 Absolute Monocytes 0.9 Absolute Eosinophils 0.1 Absolute Basophils 0.0 Carbonic Acid 1.28 HCO3/H2CO3 Ratio 22:1 ABG pH 7.44 ABG pCO2 42.5 ABG pO2 61.1 L ABG HCO3 28.5 H ABG O2 Saturation 92.3 L ABG Base Excess 4.0 FiO2 35% Sodium 138.7 Potassium 3.5 L Chloride 103 Carbon Dioxide 29 Anion Gap 7 BUN 7 Creatinine 0.59 Est GFR ( Amer) > 60 Est GFR (Non-Af Amer) > 60 Glucose 248 H Calcium 8.2 L Magnesium 1.7 Total Bilirubin 0.2 AST 24 ALT 32 Alkaline Phosphatase 45 Total Protein 5.2 L Albumin 2.7 L 05/20/17 06:50 Blood Blood Culture - Final NO GROWTH IN 5 DAYS 05/20/17 06:58 Blood Blood Culture - Final NO GROWTH IN 5 DAYS Impressions: Abdomen/Pelvis CT 05/20/17 00:00 IMPRESSION: Small 2 cm left renal mass with apparent rim calcification. If clinically warranted CT with IV contrast may be of value for further evaluation. Small bilateral adrenal nodules which appears stable when correlated with the previous study. Other findings as noted above Chest CT 05/20/17 00:00 IMPRESSION: Tiny bilateral pleural effusions are identified with associated predominately basilar airspace consolidation most consistent with atelectatic changes although I cannot exclude pneumonic consolidations. Tracheostomy tube and NG tube are identified in position. Other findings as noted above Chest X-Ray 05/25/17 06:00 IMPRESSION: NO CHANGE IN APPEARANCE OF THE CHEST. Assessment & Plan - Diagnosis (1) Acute airway obstruction Is this a current diagnosis for this admission?: Yes Plan: Resulting in subsequent tracheostomy (2) Angioedema Qualifiers: Encounter type: subsequent encounter Qualified Code(s): T78.3XXD - Angioneurotic edema, subsequent encounter Is this a current diagnosis for this admission?: Yes Plan: Minimal if any improvement (3) GRACY (obstructive sleep apnea) Is this a current diagnosis for this admission?: Yes Plan: NPSG if necessary (4) Obesity hypoventilation syndrome Is this a current diagnosis for this admission?: Yes Plan: History of PCO2 elevation refer to 04/23/2017 - Time Total Critical Time (Minutes): 35
--- NOTE | 2017-06-05 20:26 | PDOC PROGRESS REPORT ---
Subjective Progress Note for:: 05/27/17 Subjective:: lethargic Reason For Visit: ANGIOEDEMA, RESPIRATORY FAILURE Physical Exam Vital Signs: Temp Pulse Resp BP Pulse Ox 99.1 F 68 23 H 139/91 H 98 05/27/17 07:00 05/27/17 01:35 05/27/17 07:00 05/27/17 06:52 05/27/17 06:52 Intake & Output 05/26/17 05/27/17 05/28/17 06:59 06:59 06:59 Intake Total 2661 2105 Output Total 2270 1600 Balance 391 505 Weight 131.7 kg 130.3 kg General appearance: PRESENT: no acute distress, cooperative, disheveled, morbidly obese Head exam: PRESENT: atraumatic, normocephalic Eye exam: PRESENT: conjunctiva pale, EOMI. ABSENT: nystagmus, periorbital swelling, scleral icterus Mouth exam: PRESENT: dry mucosa, neck supple, tongue midline Teeth exam: PRESENT: poor dentation Neck exam: PRESENT: tracheostomy. ABSENT: carotid bruit, JVD, lymphadenopathy, thyromegaly, tracheal deviation Respiratory exam: PRESENT: rhonchi, symmetrical, unlabored. ABSENT: decreased breath sounds, prolonged expiratory phas, rales, retraction, stridor, tachypnea Cardiovascular exam: PRESENT: RRR, +S1, +S2 Pulses: PRESENT: normal radial pulses GI/Abdominal exam: PRESENT: diminished bowel sounds, soft Extremities exam: PRESENT: full ROM, pedal edema. ABSENT: calf tenderness, clubbing Musculoskeletal exam: PRESENT: full ROM. ABSENT: deformity, dislocation Neurological exam: PRESENT: awake Skin exam: PRESENT: dry, warm Results Laboratory Results: 05/27/17 05:10 05/27/17 05:10 05/27/17 05/27/17 05/27/17 05:10 05:10 06:25 WBC 7.3 RBC 4.00 L Hgb 11.7 L Hct 35.4 L MCV 88 MCH 29.2 MCHC 33.0 RDW 13.9 Plt Count 163 Seg Neutrophils % 70.2 Lymphocytes % 16.1 Monocytes % 11.7 Eosinophils % 1.7 Basophils % 0.3 Absolute Neutrophils 5.1 Absolute Lymphocytes 1.2 Absolute Monocytes 0.9 Absolute Eosinophils 0.1 Absolute Basophils 0.0 Carbonic Acid 1.44 H HCO3/H2CO3 Ratio 20:1 ABG pH 7.41 ABG pCO2 47.9 H ABG pO2 49.5 L ABG HCO3 29.5 H ABG O2 Saturation 84.9 L ABG Base Excess 4.0 FiO2 40% Sodium 142.2 Potassium 3.6 Chloride 103 Carbon Dioxide 30 Anion Gap 9 BUN 7 Creatinine 0.51 L Est GFR ( Amer) > 60 Est GFR (Non-Af Amer) > 60 Glucose 213 H Calcium 8.7 Magnesium 1.9 05/23/17 12:09 Blood Blood Culture - Final Staphylococcus Epidermidis 05/23/17 08:30 Tracheal Aspirate Gram Stain - Final 05/23/17 08:30 Tracheal Aspirate Sputum Culture - Final Klebsiella Pneumoniae C.albicans/C.dubliniensis Greatly Reduced Normal Katya Impressions: Abdomen/Pelvis CT 05/20/17 00:00 IMPRESSION: Small 2 cm left renal mass with apparent rim calcification. If clinically warranted CT with IV contrast may be of value for further evaluation. Small bilateral adrenal nodules which appears stable when correlated with the previous study. Other findings as noted above Chest CT 05/20/17 00:00 IMPRESSION: Tiny bilateral pleural effusions are identified with associated predominately basilar airspace consolidation most consistent with atelectatic changes although I cannot exclude pneumonic consolidations. Tracheostomy tube and NG tube are identified in position. Other findings as noted above Chest X-Ray 05/27/17 06:00 IMPRESSION: Cardiomegaly. Bibasilar discoid atelectasis with bilateral pleural thickening or effusions. No significant change. Assessment & Plan - Diagnosis (1) Obesity hypoventilation syndrome Is this a current diagnosis for this admission?: Yes Plan: History of PCO2 elevation refer to 04/23/2017 (2) Angioedema Qualifiers: Encounter type: subsequent encounter Qualified Code(s): T78.3XXD - Angioneurotic edema, subsequent encounter Is this a current diagnosis for this admission?: Yes Plan: Minimal if any improvement (3) Witnessed episode of apnea Is this a current diagnosis for this admission?: Yes Plan: Per spouse and staff - Time Total Critical Time (Minutes): 40
--- NOTE | 2017-06-05 20:28 | PDOC PROGRESS REPORT ---
Subjective Progress Note for:: 05/28/17 Subjective:: lethargic Reason For Visit: ANGIOEDEMA, RESPIRATORY FAILURE Physical Exam Vital Signs: Temp Pulse Resp BP Pulse Ox 99.2 F 94 16 127/62 H 92 06/01/17 15:34 06/01/17 15:34 06/01/17 15:34 06/01/17 15:34 06/01/17 15:34 Intake & Output 05/31/17 06/01/17 06/02/17 06:59 06:59 06:59 Intake Total 1797 1260 1447 Output Total 1675 2000 Balance 122 -740 1447 Weight 130.9 kg 130.1 kg General appearance: PRESENT: no acute distress, cooperative, disheveled, morbidly obese Head exam: PRESENT: atraumatic, normocephalic Eye exam: PRESENT: conjunctiva pale, EOMI. ABSENT: nystagmus, periorbital swelling, scleral icterus Mouth exam: PRESENT: dry mucosa, neck supple, tongue midline Teeth exam: PRESENT: poor dentation Neck exam: PRESENT: tracheostomy. ABSENT: carotid bruit, JVD, lymphadenopathy, thyromegaly, tracheal deviation Respiratory exam: PRESENT: decreased breath sounds, prolonged expiratory phas, rhonchi, symmetrical, unlabored. ABSENT: rales, retraction, stridor, tachypnea Cardiovascular exam: PRESENT: irregular rhythm, tachycardia Pulses: PRESENT: normal radial pulses GI/Abdominal exam: PRESENT: diminished bowel sounds, soft Extremities exam: PRESENT: full ROM, pedal edema. ABSENT: calf tenderness, clubbing Musculoskeletal exam: PRESENT: ambulatory, full ROM. ABSENT: deformity, dislocation Neurological exam: PRESENT: awake Skin exam: PRESENT: dry, warm Results Laboratory Results: 05/31/17 05:50 05/29/17 05:30 06/01/17 03:00 Urine Color YELLOW Urine Appearance CLEAR Urine pH 7.0 Ur Specific [place] 1.005 Urine Protein NEGATIVE Urine Glucose (UA) NEGATIVE Urine Ketones NEGATIVE Urine Blood NEGATIVE Urine Nitrite NEGATIVE Ur Leukocyte Esterase NEGATIVE Urine WBC (Auto) 0 Urine RBC (Auto) 0 05/30/17 06/01/17 18:20 19:00 Troponin I < 0.012 NT-Pro-B Natriuret Pep 240 Impressions: Abdomen/Pelvis CT 05/20/17 00:00 IMPRESSION: Small 2 cm left renal mass with apparent rim calcification. If clinically warranted CT with IV contrast may be of value for further evaluation. Small bilateral adrenal nodules which appears stable when correlated with the previous study. Other findings as noted above Chest CT 05/20/17 00:00 IMPRESSION: Tiny bilateral pleural effusions are identified with associated predominately basilar airspace consolidation most consistent with atelectatic changes although I cannot exclude pneumonic consolidations. Tracheostomy tube and NG tube are identified in position. Other findings as noted above Chest X-Ray 06/01/17 18:47 IMPRESSION: No acute findings.Right IJ central venous catheter tip overlies the SVC above the level of the marilyn. Assessment & Plan - Diagnosis (1) Obesity hypoventilation syndrome Is this a current diagnosis for this admission?: Yes Plan: History of PCO2 elevation refer to 04/23/2017 (2) Angioedema Qualifiers: Encounter type: subsequent encounter Qualified Code(s): T78.3XXD - Angioneurotic edema, subsequent encounter Is this a current diagnosis for this admission?: Yes Plan: Minimal if any improvement (3) Witnessed episode of apnea Is this a current diagnosis for this admission?: Yes Plan: Per spouse and staff - Time Total Critical Time (Minutes): 35
--- NOTE | 2017-06-05 20:29 | PDOC PROGRESS REPORT ---
Subjective Progress Note for:: 05/31/17 Subjective:: lethargic Reason For Visit: ANGIOEDEMA, RESPIRATORY FAILURE Physical Exam Vital Signs: Temp Pulse Resp BP Pulse Ox 99.2 F 94 16 127/62 H 92 06/01/17 15:34 06/01/17 15:34 06/01/17 15:34 06/01/17 15:34 06/01/17 15:34 Intake & Output 05/31/17 06/01/17 06/02/17 06:59 06:59 06:59 Intake Total 1797 1260 1447 Output Total 1675 2000 Balance 122 -740 1447 Weight 130.9 kg 130.1 kg General appearance: PRESENT: no acute distress, cooperative, disheveled, morbidly obese Head exam: PRESENT: atraumatic, normocephalic Eye exam: PRESENT: conjunctiva pale, EOMI. ABSENT: nystagmus, periorbital swelling, scleral icterus Mouth exam: PRESENT: dry mucosa, neck supple, tongue midline Teeth exam: PRESENT: poor dentation Neck exam: PRESENT: tracheostomy. ABSENT: carotid bruit, JVD, lymphadenopathy, thyromegaly, tracheal deviation Respiratory exam: PRESENT: decreased breath sounds, prolonged expiratory phas, rhonchi, stridor, unlabored. ABSENT: tachypnea Cardiovascular exam: PRESENT: RRR, +S2 Pulses: PRESENT: normal radial pulses GI/Abdominal exam: PRESENT: diminished bowel sounds, soft Extremities exam: PRESENT: full ROM, pedal edema. ABSENT: calf tenderness, clubbing Musculoskeletal exam: PRESENT: ambulatory, full ROM. ABSENT: deformity, dislocation Neurological exam: PRESENT: awake Skin exam: PRESENT: dry, warm Results Laboratory Results: 05/31/17 05:50 05/29/17 05:30 06/01/17 03:00 Urine Color YELLOW Urine Appearance CLEAR Urine pH 7.0 Ur Specific [place] 1.005 Urine Protein NEGATIVE Urine Glucose (UA) NEGATIVE Urine Ketones NEGATIVE Urine Blood NEGATIVE Urine Nitrite NEGATIVE Ur Leukocyte Esterase NEGATIVE Urine WBC (Auto) 0 Urine RBC (Auto) 0 05/30/17 06/01/17 18:20 19:00 Troponin I < 0.012 NT-Pro-B Natriuret Pep 240 Impressions: Abdomen/Pelvis CT 05/20/17 00:00 IMPRESSION: Small 2 cm left renal mass with apparent rim calcification. If clinically warranted CT with IV contrast may be of value for further evaluation. Small bilateral adrenal nodules which appears stable when correlated with the previous study. Other findings as noted above Chest CT 05/20/17 00:00 IMPRESSION: Tiny bilateral pleural effusions are identified with associated predominately basilar airspace consolidation most consistent with atelectatic changes although I cannot exclude pneumonic consolidations. Tracheostomy tube and NG tube are identified in position. Other findings as noted above Chest X-Ray 06/01/17 18:47 IMPRESSION: No acute findings.Right IJ central venous catheter tip overlies the SVC above the level of the marilyn. Assessment & Plan - Diagnosis (1) Obesity hypoventilation syndrome Is this a current diagnosis for this admission?: Yes Plan: History of PCO2 elevation refer to 04/23/2017 (2) Angioedema Qualifiers: Encounter type: subsequent encounter Qualified Code(s): T78.3XXD - Angioneurotic edema, subsequent encounter Is this a current diagnosis for this admission?: Yes Plan: Minimal if any improvement (3) Witnessed episode of apnea Is this a current diagnosis for this admission?: Yes - Time Total Critical Time (Minutes): 35
--- NOTE | 2017-06-05 20:31 | PDOC PROGRESS REPORT ---
Subjective Progress Note for:: 06/01/17 Subjective:: lethargic Reason For Visit: ANGIOEDEMA, RESPIRATORY FAILURE Physical Exam Vital Signs: Temp Pulse Resp BP Pulse Ox 99.2 F 94 16 127/62 H 92 06/01/17 15:34 06/01/17 15:34 06/01/17 15:34 06/01/17 15:34 06/01/17 15:34 Intake & Output 05/31/17 06/01/17 06/02/17 06:59 06:59 06:59 Intake Total 1797 1260 1447 Output Total 1675 2000 Balance 122 -740 1447 Weight 130.9 kg 130.1 kg General appearance: PRESENT: no acute distress, cooperative, disheveled, morbidly obese Head exam: PRESENT: atraumatic, normocephalic Eye exam: PRESENT: conjunctiva pale, EOMI. ABSENT: nystagmus, periorbital swelling, scleral icterus Mouth exam: PRESENT: dry mucosa, neck supple, tongue midline Neck exam: PRESENT: tracheostomy. ABSENT: carotid bruit, JVD, lymphadenopathy, thyromegaly, tracheal deviation Respiratory exam: PRESENT: decreased breath sounds, prolonged expiratory phas, rhonchi, symmetrical, unlabored. ABSENT: rales, retraction, stridor, tachypnea Cardiovascular exam: PRESENT: RRR, +S1, +S2 Pulses: PRESENT: normal radial pulses GI/Abdominal exam: PRESENT: diminished bowel sounds, soft Gentrourinary exam: PRESENT: indwelling catheter Extremities exam: PRESENT: full ROM, pedal edema. ABSENT: calf tenderness, clubbing Musculoskeletal exam: PRESENT: ambulatory. ABSENT: deformity, dislocation Neurological exam: PRESENT: awake Skin exam: PRESENT: dry, warm Results Laboratory Results: 05/31/17 05:50 05/29/17 05:30 06/01/17 03:00 Urine Color YELLOW Urine Appearance CLEAR Urine pH 7.0 Ur Specific [place] 1.005 Urine Protein NEGATIVE Urine Glucose (UA) NEGATIVE Urine Ketones NEGATIVE Urine Blood NEGATIVE Urine Nitrite NEGATIVE Ur Leukocyte Esterase NEGATIVE Urine WBC (Auto) 0 Urine RBC (Auto) 0 05/30/17 06/01/17 18:20 19:00 Troponin I < 0.012 NT-Pro-B Natriuret Pep 240 Impressions: Abdomen/Pelvis CT 05/20/17 00:00 IMPRESSION: Small 2 cm left renal mass with apparent rim calcification. If clinically warranted CT with IV contrast may be of value for further evaluation. Small bilateral adrenal nodules which appears stable when correlated with the previous study. Other findings as noted above Chest CT 05/20/17 00:00 IMPRESSION: Tiny bilateral pleural effusions are identified with associated predominately basilar airspace consolidation most consistent with atelectatic changes although I cannot exclude pneumonic consolidations. Tracheostomy tube and NG tube are identified in position. Other findings as noted above Chest X-Ray 06/01/17 18:47 IMPRESSION: No acute findings.Right IJ central venous catheter tip overlies the SVC above the level of the marilyn. Assessment & Plan - Diagnosis (1) Obesity hypoventilation syndrome Is this a current diagnosis for this admission?: Yes Plan: History of PCO2 elevation refer to 04/23/2017 (2) Angioedema Qualifiers: Encounter type: subsequent encounter Qualified Code(s): T78.3XXD - Angioneurotic edema, subsequent encounter Is this a current diagnosis for this admission?: Yes Plan: Minimal if any improvement (3) Witnessed episode of apnea Is this a current diagnosis for this admission?: Yes Plan: Per spouse and staff
--- NOTE | 2017-06-05 20:33 | PDOC PROGRESS REPORT ---
Subjective Progress Note for:: 06/04/17 Subjective:: lethargic Reason For Visit: ANGIOEDEMA, RESPIRATORY FAILURE Physical Exam Vital Signs: Temp Pulse Resp BP Pulse Ox 98.1 F 79 18 149/91 H 92 06/04/17 13:41 06/04/17 13:41 06/04/17 13:41 06/04/17 13:41 06/04/17 13:41 Intake & Output 06/03/17 06/04/17 06/05/17 06:59 06:59 06:59 Intake Total 2329 2 Output Total 1300 750 Balance 1029 1272 Weight 127.1 kg 127.4 kg General appearance: PRESENT: no acute distress, cooperative, disheveled, morbidly obese Head exam: PRESENT: atraumatic, normocephalic Eye exam: PRESENT: conjunctiva pale, EOMI. ABSENT: nystagmus, periorbital swelling, scleral icterus Mouth exam: PRESENT: dry mucosa, neck supple, tongue midline Teeth exam: PRESENT: poor dentation Neck exam: PRESENT: tracheostomy. ABSENT: carotid bruit, JVD, lymphadenopathy, thyromegaly, tracheal deviation Respiratory exam: PRESENT: decreased breath sounds, prolonged expiratory phas, rhonchi, symmetrical, unlabored. ABSENT: rales, retraction, stridor, tachypnea Cardiovascular exam: PRESENT: RRR, +S1, +S2 Pulses: PRESENT: normal radial pulses GI/Abdominal exam: PRESENT: diminished bowel sounds, soft Extremities exam: PRESENT: full ROM, pedal edema. ABSENT: calf tenderness, clubbing Musculoskeletal exam: PRESENT: ambulatory, full ROM. ABSENT: deformity, dislocation Neurological exam: PRESENT: awake Skin exam: PRESENT: dry, warm Results Laboratory Results: 06/04/17 06:45 06/02/17 04:00 06/04/17 06:45 WBC 7.6 RBC 4.23 L Hgb 12.2 L Hct 36.8 L MCV 87 MCH 28.9 MCHC 33.2 RDW 14.5 H Plt Count 245 05/30/17 06/01/17 18:20 19:00 Troponin I < 0.012 NT-Pro-B Natriuret Pep 240 Impressions: Abdomen/Pelvis CT 05/20/17 00:00 IMPRESSION: Small 2 cm left renal mass with apparent rim calcification. If clinically warranted CT with IV contrast may be of value for further evaluation. Small bilateral adrenal nodules which appears stable when correlated with the previous study. Other findings as noted above Chest CT 05/20/17 00:00 IMPRESSION: Tiny bilateral pleural effusions are identified with associated predominately basilar airspace consolidation most consistent with atelectatic changes although I cannot exclude pneumonic consolidations. Tracheostomy tube and NG tube are identified in position. Other findings as noted above Chest X-Ray 06/01/17 18:47 IMPRESSION: No acute findings.Right IJ central venous catheter tip overlies the SVC above the level of the marilyn. Assessment & Plan - Diagnosis (1) Obesity hypoventilation syndrome Is this a current diagnosis for this admission?: Yes Plan: History of PCO2 elevation refer to 04/23/2017 (2) Angioedema Qualifiers: Encounter type: subsequent encounter Qualified Code(s): T78.3XXD - Angioneurotic edema, subsequent encounter Is this a current diagnosis for this admission?: Yes Plan: some improvement (3) Witnessed episode of apnea Is this a current diagnosis for this admission?: Yes
--- NOTE | 2017-06-13 11:18 | PDOC CONSULTATION ---
History of Present Illness Admission Date/PCP: 05/19/17 04:18 Patient complains of: Occasional small amount of blood from trach when coughing past 4 days. History of Present Illness: and patient noted a small amount of bloob from yhr trach past 3-4 days. This morning his removed the inner cannula and has blood in it. I removed the cannula in the ER and no blood noted. He is on Eliquis for DVT and PE diagnosed 2 years ago. Past Medical History Cardiac Medical History: Reports: Atrial Fibrillation, Congestive Heart Failure , Hyperlipidema, Hypertension, Pulmonary Embolism Denies: Coronary Artery Disease, Myocardial Infarction, Peripheral Vascular Disease, Heart Murmur Pulmonary Medical History: Reports: Asthma, Chronic Obstructive Pulmonary Disease (COPD), Pneumonia - 7 years ago, Sleep Apnea - hx only, not a current problem, no CPAP, Tuberculosis Denies: Bronchitis, Respiratory Failure Neurological Medical History: Denies: Migraine Endocrine Medical History: Reports: Diabetes Mellitus Type 2 Denies: Hyperthyroidism, Hypothyroidism Renal/ Medical History: Denies: End Stage Renal Disease Malignancy Medical History: Denies: Lung Cancer GI Medical History: Reports: Gastroesophageal Reflux Disease, Hepatitis - Hep C Denies: Cirrhosis, Crohn's Disease, Hiatal Hernia, Ulcerative Colitis Musculoskeltal Medical History: Reports: Arthritis Denies: Fibromyalgia Skin Medical History: Denies: Psoriasis Psychiatric Medical History: Denies: Bipolar Disorder, Dementia, Depression, Post Traumatic Stress Disorder Traumatic Medical History: Denies: Traumatic Brain Injury Hematology: Denies: Sickle Cell Disease, Bleeding Tendencies Past Surgical History Past Surgical History: Reports: Appendectomy, Herniorrhaphy, Orthopedic Surgery - Spinal fusion. 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 Denies: Cholecystectomy, Colostomy, Coronary Artery Bypass Graft, Gastric Bypass Surgery, Pacemaker, Tonsillectomy Social History Smoking Status: Unknown if Ever Smoked Frequency of Alcohol Use: None Hx Recreational Drug Use: No Drugs: Cocaine - Patient admitted to cocaine use when confronted Hx Prescription Drug Abuse: No - Advance Directive Resuscitation Status: Full Code Family History Family History: Arthritis, CAD - Mother and brother, CVA, DM, Hyperlipidemia, Hypertension, Malignancy Parental Family History Reviewed: Yes Children Family History Reviewed: No Sibling(s) Family History Reviewed.: No Medication/Allergy Home Medications: Albuterol Sulfate [Proair HFA Inhalation Aerosol 8.5 gm MDI] 2 puff IH Q6HP PRN 05/19/17 Amitriptyline HCl [Elavil 25 mg Tablet] 75 mg PO QHS 05/19/17 Amlodipine Besylate [Norvasc 10 mg Tablet] 10 mg PO DAILY 05/19/17 Apixaban [Eliquis 5 mg Tablet] 5 mg PO Q12 05/19/17 Ascorbic Acid [Vitamin C 500 mg Tablet] 500 mg PO DAILY 05/19/17 Aspirin [Ecotrin 81 mg EC Tablet] 81 mg PO DAILY 05/19/17 Budesonide/Formoterol Fumarate [Symbicort 160-4.5 Mcg Inhaler] 2 puff IH Q12 10/27 Dextrose [Glucose] 1 tab PO QIDP PRN 05/19/17 Epinephrine [Epipen] 3 ml IM ONCEP PRN 05/19/17 Ferrous Sulfate 324 mg PO DAILY 05/19/17 Fluticasone Propionate [Flonase Nasal [place] 50 Mcg/[place] 16 gm] 1 spray NASL DAILY 05/19/17 Furosemide [Lasix 20 mg Tablet] 20 mg PO DAILY 05/19/17 Gabapentin [Neurontin 100 mg Capsule] 100 mg PO Q8 05/19/17 Hydrochlorothiazide [Hydrodiuril 25 mg Tablet] 25 mg PO DAILY 05/19/17 Insulin Aspart [Novolog Flexpen] 18 units SQ [id number] 05/19/17 Insulin Aspart [Novolog Flexpen] 25 units SQ BIDLS 05/19/17 Insulin Glargine,Hum.rec.anlog [Lantus Solostar] 60 unit SQ QHS 05/19/17 Isosorbide Mononitrate [Isosorbide Mononitrate ER] 30 mg PO QAM 05/19/17 Metformin HCl [Glucophage] 1,000 mg PO BIDACBS 05/19/17 Metoprolol Tartrate [Lopressor 50 mg Tablet] 25 mg PO Q12 05/19/17 Omeprazole 40 mg PO DAILY 05/19/17 Pravastatin Sodium [Pravachol] 20 mg PO QHS 05/19/17 Ranitidine HCl [Zantac 150 mg Tablet] 150 mg PO QHS 05/19/17 Sildenafil Citrate [Viagra] 100 mg PO DAILYP PRN 05/19/17 Terazosin HCl [Hytrin] 4 mg PO QHS 05/19/17 Tiotropium [place] [Spiriva Handihaler 5 Cap/Kit (18 Mcg/Cap)] 1 puff IH DAILY 05/19/17 Tramadol HCl [Ultram 50 mg Tablet] 50 mg PO Q6 05/19/17 Allergies/Adverse Reactions: codeine [Codeine] Allergy (Severe, Verified 06/13/17 08:29) Facial swelling hydrocodone bitartrate [From Vicodin] Allergy (Severe, Verified 06/13/17 08:29) Anaphylaxis lisinopril Allergy (Severe, Verified 06/13/17 08:29) Anaphylaxis hydromorphone [From Dilaudid] Allergy (Verified 06/13/17 08:29) Difficulty breathing Iodine and Iodide Containing Produc Allergy (Verified 06/13/17 08:29) Anaphylaxis morphine Allergy (Verified 06/13/17 08:29) Itching oxycodone Allergy (Verified 06/13/17 08:29) Swelling of tongue shellfish derived Allergy (Verified 06/13/17 08:29) Anaphylaxis Review of Systems Constitutional: PRESENT: as per HPI Cardiovascular: PRESENT: other - no chest pains/SOB Gastrointestinal: PRESENT: other - no pains Integumentary: PRESENT: other - no rash Neurological: PRESENT: other - no seizures Endocrine: PRESENT: other - no polyuria Hematologic/Lymphatic: PRESENT: other - no easy bruising Allergic/Immunologic: PRESENT: other - a lot of allergies Physical Exam Vital Signs: Temp Pulse Resp BP Pulse Ox 98.1 F 79 18 149/91 H 92 06/04/17 13:41 06/04/17 13:41 06/04/17 13:41 06/04/17 13:41 06/04/17 13:41 General appearance: PRESENT: no acute distress Head exam: PRESENT: atraumatic Eye exam: PRESENT: conjunctiva pink Mouth exam: PRESENT: moist Neck exam: PRESENT: full ROM Respiratory exam: PRESENT: clear to auscultation angelina Cardiovascular exam: PRESENT: RRR Pulses: PRESENT: normal radial pulses Vascular exam: PRESENT: normal capillary refill GI/Abdominal exam: PRESENT: soft Rectal exam: PRESENT: deferred Neurological exam: PRESENT: alert, oriented to person, oriented to place, oriented to time, oriented to situation Psychiatric exam: PRESENT: appropriate affect Skin exam: PRESENT: normal color, warm Additional comments: Tracheostomy in place. No bleeding from the cannula or around the trach Results Laboratory Results: 06/04/17 06:45 06/02/17 04:00 05/30/1718 18:20 19:00 Troponin I < 0.012 NT-Pro-B Natriuret Pep 240 Impressions: Abdomen/Pelvis CT 05/20/17 00:00 IMPRESSION: Small 2 cm left renal mass with apparent rim calcification. If clinically warranted CT with IV contrast may be of value for further evaluation. Small bilateral adrenal nodules which appears stable when correlated with the previous study. Other findings as noted above Chest CT 05/20/17 00:00 IMPRESSION: Tiny bilateral pleural effusions are identified with associated predominately basilar airspace consolidation most consistent with atelectatic changes although I cannot exclude pneumonic consolidations. Tracheostomy tube and NG tube are identified in position. Other findings as noted above Chest X-Ray 06/01/17 18:47 IMPRESSION: No acute findings.Right IJ central venous catheter tip overlies the SVC above the level of the marilyn. Assessment & Plan - Diagnosis (1) Bleeding from trach due to coagulopathy Is this a current diagnosis for this admission?: Yes - Time Time Spent: 30 to 50 Minutes - Plan Summary Plan Summary: Advised to stop Eliquis [facility]. We don't have an ENT home care consultant today. May not need Eliquis anymore since DVT 2 years ago and has been on Eliquis since then. Remote possibility as a herald bleed for innominate artery erosion. This was explained to the patient and better to stop Eliquis now in case he bleeds a lot in next 24 hrs. Also advised [facility]. He would be the best dr. to make decision on completely coming off Eliquis.
--- NOTE | 2017-06-21 17:09 | Physician Advisory Note ---
Physician Advisor ProgressNote .: [facility] I have reviewed the medical record for this patient. Physician Advisor Statement: DCScrystalmarmelissa states there was "VAP" present during this admission. The record indicates evidence of pneumonia present in the first 48 hours of admission, which is not consistent with the dx of VAP. (Official definitions of VAP & other types of pneumonia below.) Please clarify in an addendum to DCSummarmelissa which type of pneumonia was present, & whether or not it was already developing in the first 48 hours of admission: A. Community-Acquired Pneumonia (CAP) = present on admission (or starting to show itself in the 1st 48 hours of admission), community pathogens likely. B. HEALTHCARE-ACQUIRED pneumonia (HCAP) = due to recent contact w/ healthcare setting, typically present on admission (or beginning to show itself in the 1st 48 hours of admission). C. HOSPITAL-ACQUIRED pneumonia (HAP) = NOT present at time of this admission. Developed 48+ hours after admission (or causing readmission within 48 hours). CAUSED BY THIS ADMISSION. D. Ventilator-Associated pneumonia (VAP) = NOT present at time of this admission. Developed after patient intubated for >48 hours, or within 48 hours of extubation. CAUSED BY THIS ADMISSION. (If patient may have aspirated before or during intubation and the aspiration pneumonia appearance on CXR is delayed for 1-2 days, please clarify this so it is not misclassified as VAP.) Summary of related findings in chart: In this case, this pt came in very early on 05/19/17 AM (H&P at 07:32), with initial temps mildly hypothermic at 96.6 & 95.5 at 06:27 & 07:59 respectively, & HR >100. There was leukocytosis of 11.5 on arrival, & thrombocytopenia. Pt had acutely obstructed airway due to angioedema. RR went up as high as 30 prior to sedation (w/bagging) & emergent trach. Lungs CTAB per H&P. - At 09:56, per Dr. Humphries, pt had decreased BS & rhonchi. That PM, just before MN, pt's temps climbed into the 99s. On 05/20 AM, pt's temps climbed into the 100s, then 101s. Attending documented lungs CTAB, but fever & tachycardia of 119. -WBC 9.6. Cx.s, CTs, & Zosyn were ordered. -CXR showed possible small Lt pleural effusion w/streaky bibasilar opacities. -CT that day showed "tiny bilat pleural effusions ... w/associated predominantly basilar airspace consolidation ... cannot exclude pneumonic consolidations." -Dr. Humphries's note on 05/20 documented "decreased breath sounds, prolonged expiratory phase, rhonchi". -Tracheal aspirate cultures from 05/20 grew GBStrep & Hflu. On 05/21 & 05/22, Dr. Humphries documented decreased BS, prolonged expiratory phase, rales, rhonchi, wheezes. Pt had temps 99s, HR 80s-120s. On 05/22, Tmax was 102.2, HR 80s-140. Dr. Hopkins documented "fever due to H.flu" On 05/23, Tmax was 102.0, HR 90s-109. CXR was read as "persistent Lt basilar opacity & Lt pleural effusion". Dr. Humphries's findings remained the same. Dr. Hopkins documented "fair air movement upper lobes, diminished at bases, no crackles appreciated", & gave dx of "sepsis due to VAP", citing criteria of T> 100.4, HR >90, RR>20, & suspected source of infection. (The HR >90 & RR>20 were present on day of admission, 05/19/17, with a T<96.8 [another sepsis criterion], and same findings on CXR.) On 05/24, Tmax was 101.7, HR 79-131. CXR = "Lt basilar density & scattered linear markings Rt base, unchanged." On 05/25, Tmax was 100.4, HR 96-115. Dr. Bryant documented "HAP, cx grew H.flu & strep". Thanks for your help with improving documentation accuracy! CK
--- NOTE | 2017-06-23 16:00 | PDOC PROGRESS REPORT ---
Subjective Progress Note for:: 06/01/17 Subjective:: Patient is upset. Patient states that he wants to be treated better. Patient is having no difficulty breathing. Patient is asking to be discharge [facility]. Patient could not tolerate stress test. Patient was unable to lay flat. Reason For Visit: ANGIOEDEMA, RESPIRATORY FAILURE Physical Exam Vital Signs: Temp Pulse Resp BP Pulse Ox 99.2 F 94 16 127/62 H 92 06/01/17 15:34 06/01/17 15:34 06/01/17 15:34 06/01/17 15:34 06/01/17 15:34 Intake & Output 05/31/17 06/01/17 06/02/17 06:59 06:59 06:59 Intake Total 1797 1260 1414 Output Total 1675 2000 Balance 122 -740 1414 Weight 130.9 kg 130.1 kg General appearance: PRESENT: no acute distress, obese Head exam: PRESENT: normocephalic Eye exam: PRESENT: EOMI. ABSENT: scleral icterus Ear exam: PRESENT: normal external ear exam Mouth exam: PRESENT: moist, other - tach is place Neck exam: ABSENT: carotid bruit, JVD, lymphadenopathy, thyromegaly Respiratory exam: PRESENT: clear to auscultation angelina. ABSENT: rales, rhonchi, wheezes Cardiovascular exam: PRESENT: RRR. ABSENT: diastolic murmur, rubs, systolic murmur GI/Abdominal exam: PRESENT: normal bowel sounds, soft. ABSENT: distended, guarding, mass, organolmegaly, rebound, tenderness Rectal exam: PRESENT: deferred Extremities exam: PRESENT: full ROM. ABSENT: calf tenderness, clubbing, pedal edema Neurological exam: PRESENT: alert, awake, oriented to person, oriented to place , oriented to time, oriented to situation, CN II-XII grossly intact. ABSENT: motor sensory deficit Psychiatric exam: PRESENT: appropriate affect, normal mood. ABSENT: homicidal ideation, suicidal ideation Skin exam: PRESENT: dry, intact, warm. ABSENT: cyanosis, rash Results Laboratory Results: 05/31/17 05:50 05/29/17 05:30 06/01/17 03:00 Urine Color YELLOW Urine Appearance CLEAR Urine pH 7.0 Ur Specific [place] 1.005 Urine Protein NEGATIVE Urine Glucose (UA) NEGATIVE Urine Ketones NEGATIVE Urine Blood NEGATIVE Urine Nitrite NEGATIVE Ur Leukocyte Esterase NEGATIVE Urine WBC (Auto) 0 Urine RBC (Auto) 0 05/30/17 18:20 Troponin I < 0.012 Impressions: Abdomen/Pelvis CT 05/20/17 00:00 IMPRESSION: Small 2 cm left renal mass with apparent rim calcification. If clinically warranted CT with IV contrast may be of value for further evaluation. Small bilateral adrenal nodules which appears stable when correlated with the previous study. Other findings as noted above Chest CT 05/20/17 00:00 IMPRESSION: Tiny bilateral pleural effusions are identified with associated predominately basilar airspace consolidation most consistent with atelectatic changes although I cannot exclude pneumonic consolidations. Tracheostomy tube and NG tube are identified in position. Other findings as noted above Chest X-Ray 05/27/17 06:00 IMPRESSION: Cardiomegaly. Bibasilar discoid atelectasis with bilateral pleural thickening or effusions. No significant change. Assessment & Plan - Diagnosis (1) Acute respiratory failure Qualifiers: Respiratory failure complication: hypoxia and hypercapnia Qualified Code(s) : J96.01 - Acute respiratory failure with hypoxia; J96.02 - Acute respiratory failure with hypercapnia; J96.02 - Acute respiratory failure with hypercapnia; J96.02 - Acute respiratory failure with hypercapnia Is this a current diagnosis for this admission?: Yes Plan: Patient trached due to airway obstruction from angioedema. This has now improved. Patient on trach collar and doing well. (2) Acute airway obstruction Is this a current diagnosis for this admission?: Yes Plan: Patient with acute airway obstruction due to angioedema status post trach. Awaiting trach supplies prior to discharge. (3) Angioedema Qualifiers: Encounter type: subsequent encounter Qualified Code(s): T78.3XXD - Angioneurotic edema, subsequent encounter Is this a current diagnosis for this admission?: Yes Plan: Patient with recurrent angioedema status post trach. Patient to be referred to retail analyst to help assist with determining potential causes. (4) COPD (chronic obstructive pulmonary disease) Qualifiers: COPD type: unspecified COPD Qualified Code(s): J44.9 - Chronic obstructive pulmonary disease, unspecified Is this a current diagnosis for this admission?: Yes Plan: COPD without exacerbation. Will continue patient on bronchodilators. (5) Cocaine abuse Is this a current diagnosis for this admission?: Yes Plan: With history of cocaine abuse. (6) Diabetes Qualifiers: Diabetes mellitus type: type 2 Diabetes mellitus snf insulin use: with snf use Diabetes mellitus complication status: with diabetic arthropathy Diabetes mellitus complication detail: with other arthropathy Qualified Code(s): E11.618 - Type 2 diabetes mellitus with other diabetic arthropathy; Z79.4 - snf (current) use of insulin; Z79.4 - snf ( current) use of insulin; Z79.4 - snf (current) use of insulin; Z79.4 - ocean transportation intermediary (current) use of insulin Is this a current diagnosis for this admission?: Yes Plan: Continue current management. (7) GRACY (obstructive sleep apnea) Is this a current diagnosis for this admission?: Yes Plan: Patient currently trached. (8) Atrial fibrillation Qualifiers: Atrial fibrillation type: chronic Qualified Code(s): I48.2 - Chronic atrial fibrillation Is this a current diagnosis for this admission?: Yes Plan: Continue current management. (9) Congestive heart failure Qualifiers: Heart failure type: unspecified Heart failure chronicity: chronic Qualified Code(s): I50.9 - Heart failure, unspecified Is this a current diagnosis for this admission?: Yes Plan: With chronic diastolic heart failure. Patient appears euvolemic at this time. Patient has echo was done in 2017 which showed grade 2 diastolic dysfunction. Patient home medications of Lasix 20 mg, Imdur 30 mg metoprolol 25 every 12 can be resumed when appropriate. (10) Hypertension Qualifiers: Hypertension type: essential hypertension Qualified Code(s): I10 - Essential (primary) hypertension Is this a current diagnosis for this admission?: Yes Plan: Stable. Continue to monitor and adjust accordingly. - Time Time Spent with patient: 15-24 minutes Anticipated discharge: Home Within: within 48 hours
--- NOTE | 2017-06-23 16:28 | PDOC PROGRESS REPORT ---
Subjective Progress Note for:: 06/02/17 Subjective:: Patient wants to go home. Explained to him that we need his supplies. Reason For Visit: ANGIOEDEMA, RESPIRATORY FAILURE Physical Exam Vital Signs: Temp Pulse Resp BP Pulse Ox 99.4 F 92 18 162/91 H 94 06/02/17 20:26 06/02/17 20:43 06/02/17 20:43 06/02/17 20:26 06/02/17 20:43 Intake & Output 06/01/17 06/02/17 06/03/17 06:59 06:59 06:59 Intake Total 1260 2347 1749 Output Total 1999 575 Balance -740 1772 1749 Weight 130.1 kg General appearance: PRESENT: no acute distress, obese Head exam: PRESENT: normocephalic Eye exam: PRESENT: EOMI. ABSENT: scleral icterus Ear exam: PRESENT: normal external ear exam Mouth exam: PRESENT: moist, other - tach in place Neck exam: ABSENT: carotid bruit, JVD, lymphadenopathy, thyromegaly Respiratory exam: PRESENT: clear to auscultation angelina. ABSENT: rales, rhonchi, wheezes Cardiovascular exam: PRESENT: RRR. ABSENT: diastolic murmur, rubs, systolic murmur GI/Abdominal exam: PRESENT: normal bowel sounds, soft. ABSENT: distended, guarding, mass, organolmegaly, rebound, tenderness Rectal exam: PRESENT: deferred Extremities exam: PRESENT: full ROM. ABSENT: calf tenderness, clubbing, pedal edema Neurological exam: PRESENT: alert, awake, oriented to person, oriented to place , oriented to time, oriented to situation, CN II-XII grossly intact. ABSENT: motor sensory deficit Psychiatric exam: PRESENT: appropriate affect, normal mood. ABSENT: homicidal ideation, suicidal ideation Skin exam: PRESENT: dry, intact, warm. ABSENT: cyanosis, rash Results Laboratory Results: 06/02/17 04:00 06/02/17 04:00 06/02/17 06/02/17 06/02/17 04:00 04:00 04:00 WBC 8.9 RBC 3.98 L Hgb 11.3 L Hct 34.8 L MCV 88 MCH 28.5 MCHC 32.6 RDW 14.2 H Plt Count 236 Seg Neutrophils % 69.9 Lymphocytes % 16.5 Monocytes % 11.7 Eosinophils % 1.6 Basophils % 0.3 Absolute Neutrophils 6.2 Absolute Lymphocytes 1.5 Absolute Monocytes 1.0 Absolute Eosinophils 0.1 Absolute Basophils 0.0 Sodium 141.4 Potassium 3.8 Chloride 104 Carbon Dioxide 29 Anion Gap 8 BUN 4 L Creatinine 0.54 Est GFR ( Amer) > 60 Est GFR (Non-Af Amer) > 60 Glucose 191 H Calcium 8.7 Magnesium 1.8 Urine Color YELLOW Urine Appearance CLEAR Urine pH 7.0 Ur Specific [place] 1.009 Urine Protein NEGATIVE Urine Glucose (UA) NEGATIVE Urine Ketones NEGATIVE Urine Blood NEGATIVE Urine Nitrite NEGATIVE Ur Leukocyte Esterase NEGATIVE Urine WBC (Auto) 1 Urine RBC (Auto) 1 05/30/1718 18:20 19:00 Troponin I < 0.012 NT-Pro-B Natriuret Pep 240 Impressions: Abdomen/Pelvis CT 05/20/17 00:00 IMPRESSION: Small 2 cm left renal mass with apparent rim calcification. If clinically warranted CT with IV contrast may be of value for further evaluation. Small bilateral adrenal nodules which appears stable when correlated with the previous study. Other findings as noted above Chest CT 05/20/17 00:00 IMPRESSION: Tiny bilateral pleural effusions are identified with associated predominately basilar airspace consolidation most consistent with atelectatic changes although I cannot exclude pneumonic consolidations. Tracheostomy tube and NG tube are identified in position. Other findings as noted above Chest X-Ray 06/01/17 18:47 IMPRESSION: No acute findings.Right IJ central venous catheter tip overlies the SVC above the level of the marilyn. Assessment & Plan - Diagnosis (1) Acute respiratory failure Qualifiers: Respiratory failure complication: hypoxia and hypercapnia Qualified Code(s) : J96.01 - Acute respiratory failure with hypoxia; J96.02 - Acute respiratory failure with hypercapnia; J96.02 - Acute respiratory failure with hypercapnia; J96.02 - Acute respiratory failure with hypercapnia Is this a current diagnosis for this admission?: Yes Plan: Patient trached due to airway obstruction from angioedema. Patient on trach collar and doing well. (2) Acute airway obstruction Is this a current diagnosis for this admission?: Yes Plan: Patient with acute airway obstruction due to angioedema status post trach. Still awaiting trach supplies. (3) Angioedema Qualifiers: Encounter type: subsequent encounter Qualified Code(s): T78.3XXD - Angioneurotic edema, subsequent encounter Is this a current diagnosis for this admission?: Yes Plan: Patient with recurrent angioedema status post trach. Patient to be referred to mig welder to help assist with determining potential causes. (4) COPD (chronic obstructive pulmonary disease) Qualifiers: COPD type: unspecified COPD Qualified Code(s): J44.9 - Chronic obstructive pulmonary disease, unspecified Is this a current diagnosis for this admission?: Yes Plan: COPD without exacerbation. Continue patient on bronchodilators. (5) Cocaine abuse Is this a current diagnosis for this admission?: Yes Plan: With history of cocaine abuse. (6) Diabetes Qualifiers: Diabetes mellitus type: type 2 Diabetes mellitus buttermaker continuous churn insulin use: with prison use Diabetes mellitus complication status: with diabetic arthropathy Diabetes mellitus complication detail: with other arthropathy Qualified Code(s): E11.618 - Type 2 diabetes mellitus with other diabetic arthropathy; Z79.4 - longterm (current) use of insulin; Z79.4 - longterm ( current) use of insulin; Z79.4 - termite helper (current) use of insulin; Z79.4 - longterm (current) use of insulin Is this a current diagnosis for this admission?: Yes Plan: Continue current management. (7) GRACY (obstructive sleep apnea) Is this a current diagnosis for this admission?: Yes Plan: Patient currently trached. (8) Atrial fibrillation Qualifiers: Atrial fibrillation type: chronic Qualified Code(s): I48.2 - Chronic atrial fibrillation Is this a current diagnosis for this admission?: Yes Plan: Continue current management. (9) Congestive heart failure Qualifiers: Heart failure type: unspecified Heart failure chronicity: chronic Qualified Code(s): I50.9 - Heart failure, unspecified Is this a current diagnosis for this admission?: Yes Plan: With chronic diastolic heart failure. Patient appears euvolemic at this time. Patient has echo was done in 2017 which showed grade 2 diastolic dysfunction. Patient home medications of Lasix 20 mg, Imdur 30 mg metoprolol 25 every 12 can be resumed when appropriate. (10) Hypertension Qualifiers: Hypertension type: essential hypertension Qualified Code(s): I10 - Essential (primary) hypertension Is this a current diagnosis for this admission?: Yes Plan: Stable. Continue to monitor and adjust accordingly. - Time Time Spent with patient: Less than 15 minutes Anticipated discharge: Home Within: within 24 hours
== END 2017-06-04 13:59 | disposition home health service (06) | DRG 4 ==
LOC: ER 03:14 → EH 04:18 → ICU 05:47 → 3S 05-27 11:32
PROVIDERS: ADMIT Pediatrics; ATTEND Pediatrics
PROC: 5A1955Z Respiratory Ventilation, Greater than 96 Consecutive Hours (ICD-10-PCS; 2017-05-19)
PROC: 0B113F4 Bypass Trachea to Cutaneous with Tracheostomy Device, Percutaneous Approach (ICD-10-PCS; principal; 2017-05-19 04:30)
PROC: 02HV33Z Insertion of Infusion Device into Superior Vena Cava, Percutaneous Approach (ICD-10-PCS; 2017-05-23)
PROC: B548ZZA Ultrasonography of Superior Vena Cava, Guidance (ICD-10-PCS; 2017-05-23)
DX: T78.3XXA Angioneurotic edema, initial encounter (principal); J96.22 Acute and chronic respiratory failure with hypercapnia; J96.21 Acute and chronic respiratory failure with hypoxia; A41.9 Sepsis, unspecified organism; I26.99 Other pulmonary embolism without acute cor pulmonale; J69.0 Pneumonitis due to inhalation of food and vomit; J91.8 Pleural effusion in other conditions classified elsewhere; I50.32 Chronic diastolic (congestive) heart failure; J98.11 Atelectasis; E66.2 Morbid (severe) obesity with alveolar hypoventilation; Z68.41 Body mass index [BMI] 40.0-44.9, adult; B95.1 Streptococcus, group B, as the cause of diseases classified elsewhere; B96.3 Hemophilus influenzae [H. influenzae] as the cause of diseases classified elsewhere; I48.91 Unspecified atrial fibrillation; I11.0 Hypertensive heart disease with heart failure; E78.00 Pure hypercholesterolemia, unspecified; E11.618 Type 2 diabetes mellitus with other diabetic arthropathy; F14.10 Cocaine abuse, uncomplicated; J44.9 Chronic obstructive pulmonary disease, unspecified; N28.89 Other specified disorders of kidney and ureter; K21.9 Gastro-esophageal reflux disease without esophagitis; D69.6 Thrombocytopenia, unspecified; R00.0 Tachycardia, unspecified; B19.20 Unspecified viral hepatitis C without hepatic coma; M19.90 Unspecified osteoarthritis, unspecified site; T40.5X5A Adverse effect of cocaine, initial encounter; Y92.009 Unspecified place in unspecified non-institutional (private) residence as the place of occurrence of the external cause; Z79.84 Long term (current) use of oral hypoglycemic drugs; Z79.4 Long term (current) use of insulin; Z79.51 Long term (current) use of inhaled steroids; Z79.899 Other long term (current) drug therapy; Z79.01 Long term (current) use of anticoagulants; Z86.711 Personal history of pulmonary embolism; Z86.73 Personal history of transient ischemic attack (TIA), and cerebral infarction without residual deficits; Z88.5 Allergy status to narcotic agent; Z88.8 Allergy status to other drugs, medicaments and biological substances
CPT/HCPCS: 00320; 36415; 71045; 71046; 71250; 74176; 78451; 80048; 80053; 80202; 80307; 81001; 82803; 82962; 83735; 83880; 84100; 84484; 85025; 85027; 87040; 87070; 87077; 87086; 87186; 87205; 93005; 93010; 93017; 93306; 94002; 94003; 99153; 99291; 99292; 99152; A9500; C1751; G8996-GN; G8997-GN; J0280; J0692; J1200; J1642; J1644; J1815; J1885; J1940; J1956; J2060; J2185; J2250; J2543; J2704; J2785; J3010; J3360; J3370; J3480; J3490; J7030; J7060; J7620; Q9969; S0028; S0164

== ENCOUNTER 2017-06-08 10:26 | Emergency (ER) | payer OTHER ==
[2017-06-08 10:35] VITALS: BP 117/75
--- NOTE | 2017-06-08 11:01 | ER Document Report ---
ED Medical Screen (RME) - General Chief Complaint: Other Stated Complaint: BLEEDING Time Seen by Provider: 06/08/17 10:56 Mode of Arrival: Wheelchair Information source: Patient Notes: 61-year-old male who had trach placed 3 weeks ago presents wiht complaints of bleeding from the stoma I have greeted and performed a rapid initial assessment of this patient. A comprehensive ED assessment and evaluation of the patient, analysis of test results and completion of the medical decision making process will be conducted by additional ED providers. PHYSICAL EXAMINATION: GENERAL: Well-appearing, well-nourished and in no acute distress. HEAD: Atraumatic, normocephalic. EYES: Pupils equal round extraocular movements intact, conjunctiva are normal. ENT: Nares patent NECK: Normal range of motion, trach in place, no active bleeding noted LUNGS: No respiratory distress Musculoskeletal: Normal range of motion NEUROLOGICAL: Normal speech, normal gait. PSYCH: Normal mood, normal affect. SKIN: Warm, Dry, normal turgor, no rashes or lesions noted. TRAVEL OUTSIDE OF THE [place] IN LAST 30 DAYS: No - Related Data Allergies/Adverse Reactions: codeine [Codeine] Allergy (Severe, Verified 06/08/17 10:26) Facial swelling hydrocodone bitartrate [From Vicodin] Allergy (Severe, Verified 06/08/17 10:26) Anaphylaxis lisinopril Allergy (Severe, Verified 06/08/17 10:26) Anaphylaxis hydromorphone [From Dilaudid] Allergy (Verified 06/08/17 10:26) Difficulty breathing Iodine and Iodide Containing Produc Allergy (Verified 06/08/17 10:26) Anaphylaxis morphine Allergy (Verified 06/08/17 10:26) Itching oxycodone Allergy (Verified 06/08/17 10:26) Swelling of tongue shellfish derived Allergy (Verified 06/08/17 10:26) Anaphylaxis Past Medical History - Social History Chew tobacco use (# tins/day): No Frequency of alcohol use: Occasional Drug Abuse: None - Past Medical History Cardiac Medical History: Reports: Hx Atrial Fibrillation, Hx Congestive Heart Failure, Hx Hypercholesterolemia, Hx Hypertension, Hx Pulmonary Embolism Denies: Hx Coronary Artery Disease, Hx Heart Attack, Hx Peripheral Vascular Disease, Hx Heart Murmur Pulmonary Medical History: Reports: Hx Asthma, Hx COPD, Hx Pneumonia - 7 years ago, Hx Sleep Apnea - hx only, not a current problem, no CPAP, Hx Tuberculosis Denies: Hx Bronchitis, Hx Respiratory Failure Neurological Medical History: Reports: Hx Cerebrovascular Accident. Denies: Hx Migraine Endocrine Medical History: Reports: Hx Diabetes Mellitus Type 2. Denies: Hx Graves' Disease, Hx Hyperthyroidism, Hx Hypothyroidism Renal/ Medical History: Reports: Hx Kidney Stones - 1981. Denies: Hx Benign Prostatic Hyperplasia, Hx End Stage Renal Disease, Hx Peritoneal Dialysis Malignancy Medical History: Denies Hx Lung Cancer GI Medical History: Reports: Hx Gastroesophageal Reflux Disease, Hx Hepatitis - Hep C, Hx Pancreatitis - 1988, Hx Ulcer. Denies: Hx Cirrhosis, Hx Crohn's Disease, Hx Hiatal Hernia, Hx Irritable Bowel, Hx Liver Failure, Hx Ulcerative Colitis Musculoskeltal Medical History: Reports Hx Arthritis, Denies Hx Fibromyalgia, Denies Hx Multiple Sclerosis, Denies Hx Muscular Dystrophy, Reports Hx Musculoskeletal Deformity, Reports Hx Musculoskeletal Trauma Skin Medical History: Denies Hx Psoriasis Psychiatric Medical History: Denies: Hx Bipolar Disorder, Hx Dementia, Hx Depression, Hx Post Traumatic Stress Disorder, Hx Schizophrenia Traumatic Medical History: Reports: Hx Fractures, Hx Spine Fracture. Denies: Hx Traumatic Brain Injury Infectious Medical History: Reports: Hx Hepatitis - Hep C Past Surgical History: Reports: Hx Abdominal Surgery - Hernia repair, bowel resection, Hx Appendectomy, Hx Bowel Surgery - bowel resection 1988, Hx Herniorrhaphy, Hx Oral Surgery, Hx Orthopedic Surgery - Spinal fusion. Meniscus repair., Other - Tracheostomy on 05/19/2017. Denies: Hx Cholecystectomy, Hx Colostomy, Hx Coronary Artery Bypass Graft, Hx Gastric Bypass Surgery, Hx Pacemaker, Hx Tonsillectomy - Immunizations Immunizations up to date: Yes Hx Diphtheria, Pertussis, Tetanus Vaccination: Yes History of Influenza Vaccine for 01/2017 - 06/2017 Season: Refused Physical Exam - Vital signs Vitals: Temp Pulse Resp BP Pulse Ox 98.6 F 88 16 117/75 96 06/08/17 10:06/08/17 10:06/08/17 10:06/08/17 10:06/08/17 10:29 Course - Vital Signs Vital signs: Temp Pulse Resp BP Pulse Ox 98.6 F 88 16 117/75 96 06/08/17 10:06/08/17 10:06/08/17 10:06/08/17 10:29 06/08/17 10:29
--- NOTE | 2017-06-08 12:21 | ER Document Report ---
ED ENT - General Chief Complaint: Other Stated Complaint: BLEEDING Time Seen by Provider: 06/08/17 10:56 Mode of Arrival: Wheelchair Notes: Patient says that he had some blood come from his recently placed tracheostomy last night, for the first time, but it happened again today. Last night, he said he coughed and saw a small spot of blood. This morning, his cleaned his tracheostomy and she found some scab material and bright red blood. He has coughed since then without any blood produced. Patient has had this tracheostomy for 3 weeks, since May 19 when he came to this emergency department in anaphylactic shock. He has a history of several episodes of severe allergies or anaphylaxis over the past few months. No specific allergic response was determined. He was discharged from the hospital Wednesday. No other symptoms or complaints. Denies fever. TRAVEL OUTSIDE OF THE [place] IN LAST 30 DAYS: No - Related Data Allergies/Adverse Reactions: codeine [Codeine] Allergy (Severe, Verified 06/08/17 10:26) Facial swelling hydrocodone bitartrate [From Vicodin] Allergy (Severe, Verified 06/08/17 10:26) Anaphylaxis lisinopril Allergy (Severe, Verified 06/08/17 10:26) Anaphylaxis hydromorphone [From Dilaudid] Allergy (Verified 06/08/17 10:26) Difficulty breathing Iodine and Iodide Containing Produc Allergy (Verified 06/08/17 10:26) Anaphylaxis morphine Allergy (Verified 06/08/17 10:26) Itching oxycodone Allergy (Verified 06/08/17 10:26) Swelling of tongue shellfish derived Allergy (Verified 06/08/17 10:26) Anaphylaxis Past Medical History - General Information source: Patient - Social History Smoking Status: Former Smoker Chew tobacco use (# tins/day): No Frequency of alcohol use: Occasional Drug Abuse: None Family History: Arthritis, CAD - Mother and brother, CVA, DM, Hyperlipidemia, Hypertension, Malignancy Patient has suicidal ideation: No Patient has homicidal ideation: No - Past Medical History Cardiac Medical History: Reports: Hx Atrial Fibrillation, Hx Congestive Heart Failure, Hx Hypercholesterolemia, Hx Hypertension, Hx Pulmonary Embolism Pulmonary Medical History: Reports: Hx Asthma, Hx COPD, Hx Pneumonia - 7 years ago, Hx Sleep Apnea - hx only, not a current problem, no CPAP, Hx Tuberculosis Neurological Medical History: Reports: Hx Cerebrovascular Accident. Denies: Hx Migraine Endocrine Medical History: Reports: Hx Diabetes Mellitus Type 2 Renal/ Medical History: Reports: Hx Kidney Stones - 1981 Malignancy Medical History: Denies Hx Lung Cancer GI Medical History: Reports: Hx Gastroesophageal Reflux Disease, Hx Hepatitis - Hep C, Hx Pancreatitis - 1988, Hx Ulcer Musculoskeltal Medical History: Reports Hx Arthritis, Reports Hx Musculoskeletal Deformity, Reports Hx Musculoskeletal Trauma Skin Medical History: Denies Hx Psoriasis Traumatic Medical History: Reports: Hx Fractures, Hx Spine Fracture Infectious Medical History: Reports: Hx Hepatitis - Hep C Past Surgical History: Reports: Hx Abdominal Surgery - Hernia repair, bowel resection, Hx Appendectomy, Hx Bowel Surgery - bowel resection 1988, Hx Herniorrhaphy, Hx Oral Surgery, Hx Orthopedic Surgery - Spinal fusion. Meniscus repair., Other - Tracheostomy on 05/19/2017 - Immunizations Immunizations up to date: Yes Hx Diphtheria, Pertussis, Tetanus Vaccination: Yes Hx Pneumococcal Vaccination: 04/12/13 Review of Systems - Review of Systems Notes: REVIEW OF SYSTEMS: CONSTITUTIONAL : Denies fever. EENT: Denies eye, ear, nose or mouth or throat pain or other symptoms. CARDIOVASCULAR: Denies chest pain. RESPIRATORY: Has had some cough and chest congestion, but no shortness of breath. GASTROINTESTINAL: Denies abdominal pain or nausea, vomiting, or diarrhea. GENITOURINARY: Denies difficulty or painful urinating, urinary frequency, blood in urine. MUSCULOSKELETAL: Denies back or neck pain. Denies joint pain or swelling. SKIN: Denies rash or skin lesions. NEUROLOGICAL: Denies LOC or altered mental status. Denies headache. Denies sensory loss or motor deficits. ALL OTHER SYSTEMS REVIEWED AND NEGATIVE. Physical Exam - Vital signs Vitals: Temp Pulse Resp BP Pulse Ox 98.6 F 88 16 117/75 96 06/08/17 10:29 06/08/17 10:29 06/08/17 10:29 06/08/17 10:29 06/08/17 10:29 Interpretation: Normal - Notes Notes: PHYSICAL EXAMINATION: GENERAL: Well-appearing, in no acute distress. Tracheostomy in place. No bleeding noted. No drainage. Patient's voice is normal and not hoarse. Has no trouble swallowing. HEAD: Atraumatic, normocephalic. EYES: Pupils equal round and reactive to light, extraocular movements intact. NECK: Normal range of motion, supple. Tracheostomy. Cannula not removed. LUNGS: Breath sounds clear and equal bilaterally. HEART: Regular rate and rhythm without murmurs. ABDOMEN: Soft, nontender. No guarding or rebound. No masses. BACK: No tenderness throughout entire back. EXTREMITIES: Normal range of motion without pain. NEUROLOGICAL: Normal speech, normal gait. Normal sensory, motor, and reflex exams. Awake, alert, and oriented x3. Cranial nerves normal. SKIN: Warm, dry, no rashes. Course - Re-evaluation Re-evalutation: 06/08/17 15:35 I obtained a noncontrasted CT of the chest, because we did not want to give contrast to this patient with so many previous anaphylactic reactions. Radiologist read the CT scan as basically normal and with nothing to suggest that the patient's trachea is close to the innominate artery. Patient has been coughing occasionally and I observed him to do so and is not producing any blood at this time. I spoke with Dr. Vargas, who is a local ENT doctor, but is not electrician second for the emergency department. He offered some suggestions and questions and then said he would see the patient at 4:00 this afternoon in his office. I was very grateful to have him make that offer. I told the patient and his about that plan and that I wanted to keep him here for observation until it was time for him to go to Dr. Vargas's office. I went into great detail to explain to the patient that in all likelihood his bleeding was some edges of healing tissue that had pulled loose and caused some bleeding and that is the cause of the vast majority of bleeding after a tracheostomy. But I did go into detail about the potential for any erosion of that to be into a major artery which could cause it to rupture or and bleed large amounts of blood and even bleeds so much as to cause . I thought the patient understood the seriousness of his condition and the need for him to be seen by the ENT, since he was so gracious to be willing to come here and evaluate the patient when he is not electrician second for the ED. Sometime around 1:00, I got a call back from Dr. Vargas saying that they could not get approval for [facility] benefits to pay for an emergency visit in his office so he would come to the emergency department to see the patient. I went to inform the patient of this change in plans, for the better, and it appeared that his room had been vacated. There was an emesis bag on the bed. There were no clothing or other personal items in the room. Neither the patient nor his were there. I went back to the chart and found the patient's phone number and call that number and got a voicemail that was the patient's voice saying to leave a message which I did ask him where he is and could be return to the emergency room to be seen. I then tried the 's phone number listed under demographic information. She answered the phone and I asked where they were and she said " I am coming right back in" and then the line went . We got all of the equipment which the ENT doctor had requested and awaited the return of the patient and his to his room. However, patient never returned. I went back and tried his 's number again without success. I got a recording of a male patient saying to leave a message. I did not leave a message on her line. It is now well over 2 hours since we last saw the patient and they have not contacted us know return to the emergency department. The nurse tried to call both of them again, as well without success. - Vital Signs Vital signs: Temp Pulse Resp BP Pulse Ox 98.6 F 88 16 117/75 96 06/08/17 10:29 06/08/17 10:29 06/08/17 10:29 06/08/17 10:06/08/17 10:29 Discharge - Discharge Disposition: ELOPED Referrals: FRANCES OSUNA MD [Primary Care Provider] - Follow up as needed
--- NOTE | 2017-06-08 12:55 | RADIOLOGY REPORT (SQ) ---
EXAM DESCRIPTION: CT CHEST WITHOUT COMPLETED DATE/TIME: 06/08/2017 12:17 pm REASON FOR STUDY: eval tracheostomy for bleeding/fistula?? COMPARISON: CT chest 08/04/2014, 02/05/2015, 03/16/2015, 12/29/2016, 05/20/2017 TECHNIQUE: CT scan performed of the chest without intravenous contrast. Images reviewed with lung, soft tissue and bone windows. Reconstructed coronal and sagittal MPR images reviewed. All images st ored on PACS. All CT scanners at this facility use dose modulation, iterative reconstruction, and/or weight based d osing when appropriate to reduce radiation dose to as low as reasonably achievable (ALARA). [facility]: Dose Right [facility]: CareDose [facility]: Dose Right [facility]: Teradose 4D [facility]: Smart [employer] RADIATION DOSE: CT Rad equipment meets quality standard of care and radiation dose reduction techniq ues were employed. CTDIvol: 19.0 mGy. DLP: 895 mGy-cm. mGy. LIMITATIONS: No technical limitations. FINDINGS: LUNGS AND PLEURA: Ms. chronic bandlike atelectasis in the medial anterior aspect of the li ngula and medial segment right middle lobe unchanged from prior studies. No fluffy alveolar infiltrates worrisome for pulmonary edema or pneumonia. No worrisome pulmonary no dules. Airways are patent. HILAR AND MEDIASTINAL STRUCTURES: No identified masses or abnormal nodes. No obvious aneurysm. HEART AND VASCULAR STRUCTURES: No aneurysm. No pericardial effusion. Minimal coronary artery calcif ications UPPER ABDOMEN: Stomach to small bowel anastomosis in the left upper quadrant on axial images 68-72. Multiple small adrenal nodules bilaterally. These findings are stable compared to 08/04/2014 CT abdom en pelvis THYROID AND OTHER SOFT TISSUES: No masses. No adenopathy. BONES: No significant finding. HARDWARE: There is a tracheostomy present with the tip in the upper trachea in good positioning best shown on sagittal image 60. OTHER: Findings discussed with Dr. Newton in the emergency room IMPRESSION: No CT evidence of malposition tracheostomy tube. TECHNICAL DOCUMENTATION: JOB ID: [id number] Quality ID # [id number]: Final reports with documentation of one or more dose reduction techniques (e.g., Au tomated exposure control, adjustment of the mA and/or kV according to patient size, use of iterative reconstruction technique) 2010 [employer]- All Rights Reserved Reading location - IP/workstation name: [email or web address]
== END 2017-06-08 13:18 | disposition left against medical advice (07) ==
LOC: ER 10:26
DX: Z43.0 Encounter for attention to tracheostomy (principal); R05 Cough; R09.89 Other specified symptoms and signs involving the circulatory and respiratory systems; I10 Essential (primary) hypertension; J44.9 Chronic obstructive pulmonary disease, unspecified; E11.9 Type 2 diabetes mellitus without complications; Z87.891 Personal history of nicotine dependence; Z87.892 Personal history of anaphylaxis; Z88.5 Allergy status to narcotic agent; Z88.8 Allergy status to other drugs, medicaments and biological substances; Z91.013 Allergy to seafood; Z53.20 Procedure and treatment not carried out because of patient's decision for unspecified reasons
CPT/HCPCS: 71250; 99281

== ENCOUNTER 2017-06-13 08:27 | Emergency (ER) | payer OTHER ==
--- NOTE | 2017-06-13 09:44 | ER Document Report ---
ED General - General Chief Complaint: Breathing Difficulty Stated Complaint: SURGICAL SITE PROBLEM Time Seen by Provider: 06/13/17 09:05 Mode of Arrival: Ambulatory Information source: Patient Notes: 61-year-old male who had trach placed a few weeks ago edema presents with complaints of blood per trachea. Patient notes it only occurs in the mornings when he coughs up, throughout the day and at nighttime there is no bleeding noted. Streaks of blood are seen on patient's clear otherwise sputum. Patient was here recently with similar complaint the left prior to ENT evaluating him TRAVEL OUTSIDE OF THE [place] IN LAST 30 DAYS: No - HPI Onset: Last week Onset/Duration: Intermittent Quality of pain: No pain, Cramping Pain Level: Denies Associated symptoms: Other Exacerbated by: Denies Relieved by: Denies Similar symptoms previously: Yes Recently seen / treated by doctor: Yes - Related Data Allergies/Adverse Reactions: codeine [Codeine] Allergy (Severe, Verified 06/13/17 08:29) Facial swelling hydrocodone bitartrate [From Vicodin] Allergy (Severe, Verified 06/13/17 08:29) Anaphylaxis lisinopril Allergy (Severe, Verified 06/13/17 08:29) Anaphylaxis hydromorphone [From Dilaudid] Allergy (Verified 06/13/17 08:29) Difficulty breathing Iodine and Iodide Containing Produc Allergy (Verified 06/13/17 08:29) Anaphylaxis morphine Allergy (Verified 06/13/17 08:29) Itching oxycodone Allergy (Verified 06/13/17 08:29) Swelling of tongue shellfish derived Allergy (Verified 06/13/17 08:29) Anaphylaxis Past Medical History - Social History Smoking Status: Never Smoker Cigarette use (# per day): No Chew tobacco use (# tins/day): No Smoking Education Provided: No Family History: Arthritis, CAD - Mother and brother, CVA, DM, Hyperlipidemia, Hypertension, Malignancy - Past Medical History Cardiac Medical History: Reports: Hx Atrial Fibrillation, Hx Congestive Heart Failure, Hx Hypercholesterolemia, Hx Hypertension, Hx Pulmonary Embolism Denies: Hx Coronary Artery Disease, Hx Heart Attack, Hx Peripheral Vascular Disease, Hx Heart Murmur Pulmonary Medical History: Reports: Hx Asthma, Hx COPD, Hx Pneumonia - 7 years ago, Hx Sleep Apnea - hx only, not a current problem, no CPAP, Hx Tuberculosis Denies: Hx Bronchitis, Hx Respiratory Failure Neurological Medical History: Reports: Hx Cerebrovascular Accident. Denies: Hx Migraine Endocrine Medical History: Reports: Hx Diabetes Mellitus Type 2. Denies: Hx Graves' Disease, Hx Hyperthyroidism, Hx Hypothyroidism Renal/ Medical History: Reports: Hx Kidney Stones - 1981. Denies: Hx Benign Prostatic Hyperplasia, Hx End Stage Renal Disease, Hx Peritoneal Dialysis Malignancy Medical History: Denies Hx Lung Cancer GI Medical History: Reports: Hx Gastroesophageal Reflux Disease, Hx Hepatitis - Hep C, Hx Pancreatitis - 1988, Hx Ulcer. Denies: Hx Cirrhosis, Hx Crohn's Disease, Hx Hiatal Hernia, Hx Irritable Bowel, Hx Liver Failure, Hx Ulcerative Colitis Musculoskeltal Medical History: Reports Hx Arthritis, Denies Hx Fibromyalgia, Denies Hx Multiple Sclerosis, Denies Hx Muscular Dystrophy, Reports Hx Musculoskeletal Deformity, Reports Hx Musculoskeletal Trauma Skin Medical History: Denies Hx Psoriasis Psychiatric Medical History: Denies: Hx Bipolar Disorder, Hx Dementia, Hx Depression, Hx Post Traumatic Stress Disorder, Hx Schizophrenia Traumatic Medical History: Reports: Hx Fractures, Hx Spine Fracture. Denies: Hx Traumatic Brain Injury Infectious Medical History: Reports: Hx Hepatitis - Hep C Past Surgical History: Reports: Hx Abdominal Surgery - Hernia repair, bowel resection, Hx Appendectomy, Hx Bowel Surgery - bowel resection 1988, Hx Herniorrhaphy, Hx Oral Surgery, Hx Orthopedic Surgery - Spinal fusion. Meniscus repair., Other - Tracheostomy on 05/19/2017. Denies: Hx Cholecystectomy, Hx Colostomy, Hx Coronary Artery Bypass Graft, Hx Gastric Bypass Surgery, Hx Pacemaker, Hx Tonsillectomy - Immunizations Immunizations up to date: Yes Hx Diphtheria, Pertussis, Tetanus Vaccination: Yes Hx Pneumococcal Vaccination: 04/12/13 Review of Systems - Review of Systems Notes: REVIEW OF SYSTEMS: CONSTITUTIONAL : Denies fever, chills, or sweats. Denies recent illness. EENT: Denies eye, ear, throat, or mouth pain or symptoms. Denies nasal or sinus congestion or discharge. Denies throat, tongue, or mouth swelling or difficulty swallowing. Admits to blood from trachea CARDIOVASCULAR: Denies chest pain. Denies palpitations or racing or irregular heart beat. Denies ankle edema. RESPIRATORY: Denies cough, cold, or chest congestion. Denies shortness of breath, difficulty breathing, or wheezing. GASTROINTESTINAL: Denies abdominal pain or distention. Denies nausea, vomiting , or diarrhea. Denies blood in vomitus, stools, or per rectum. Denies black, tarry stools. Denies constipation. GENITOURINARY: Denies difficulty urinating, painful urination, burning, frequency, blood in urine, or discharge. MUSCULOSKELETAL: Denies back or neck pain or stiffness. Denies joint pain or swelling. SKIN: Denies rash, lesions or sores. HEMATOLOGIC : Denies easy bruising or bleeding. LYMPHATIC: Denies swollen, enlarged glands. NEUROLOGICAL: Denies confusion or altered mental status. Denies passing out or loss of consciousness. Denies dizziness or lightheadedness. Denies headache. Denies weakness or paralysis or loss of use of either side. Denies problems with gait or speech. Denies sensory loss, numbness, or tingling. Denies seizures. PSYCHIATRIC: Denies anxiety or stress. Denies depression, suicidal ideation, or homicidal ideation. ALL OTHER SYSTEMS REVIEWED AND NEGATIVE. Dictation was performed using [employer] voice recognition software PHYSICAL EXAMINATION: GENERAL: Well-appearing, well-nourished and in no acute distress. HEAD: Atraumatic, normocephalic. EYES: Pupils equal round and reactive to light, extraocular movements intact, sclera anicteric, conjunctiva are normal. ENT: Nares patent, oropharynx clear without exudates. Moist mucous membranes. Trachea in place NECK: Normal range of motion, supple without lymphadenopathy LUNGS: Breath sounds clear to auscultation bilaterally and equal. No wheezes rales or rhonchi. HEART: Regular rate and rhythm without murmurs ABDOMEN: Soft, nontender, nondistended abdomen. No guarding, no rebound. No masses appreciated. Musculoskeletal: Normal range of motion, no pitting or edema. No cyanosis. NEUROLOGICAL: Cranial nerves grossly intact. Normal speech, normal gait. Normal sensory, motor exams PSYCH: Normal mood, normal affect. SKIN: Warm, Dry, normal turgor, no rashes or lesions noted. Physical Exam - Vital signs Vitals: Temp Pulse Resp BP Pulse Ox 98.0 F 93 24 H 122/76 95 06/13/17 08:40 06/13/17 08:40 06/13/17 08:40 06/13/17 08:40 06/13/17 08:40 Course - Re-evaluation Re-evalutation: 03/04/18 09:43 ENT is sales commissions analyst, literature teacher is on-call I have consulted awaiting callback 06/13/17 10:[address] Humphries, he miloves patient is stable for dc home Spoke with Dr Welsh , he will evaluate patient 06/13/17 11:21 Patient and wish to be discharged, a state they will [facility] and they have a ENT physician tomorrow, they request no other intervention at this time, we have explained that this is a very high risk issue given the concerns for an arterial bleed, they state they understand will return if there are any other concerns After performing a Medical Screening Examination, I estimate there is LOW risk for ARTERIAL BLEED, ACUTE NEUROVASCULAR INJURY, or RETAINED FOREIGN BODY, thus I consider the discharge disposition reasonable. Also, there is no evidence or peritonitis, sepsis, or toxicity. I have reevaluated this patient multiple times and no significant life threatening changes are noted. The patient and I have discussed the diagnosis and risks, and we agree with discharging home with close follow-up with the understanding that symptoms and presentations can change. We also discussed returning to the Emergency Department immediately if new or worsening symptoms occur. We have discussed the symptoms which are most concerning (e.g., changing or worsening pain, fever, numbness, weakness, cool or painful digits) that necessitate immediate return. - Vital Signs Vital signs: Temp Pulse Resp BP Pulse Ox 98.6 F 88 16 121/69 100 06/13/17 11:16 06/13/17 11:16 06/13/17 11:16 06/13/17 11:16 06/13/17 11:16 Discharge - Discharge Clinical Impression: Hemorrhage due to tracheostomy Condition: Stable Disposition: HOME, SELF-CARE Additional Instructions: Please return immediately at any point if there are any concerns Referrals: FRANCES OSUNA MD [Primary Care Provider] - Follow up tomorrow
[2017-06-13 11:16] VITALS: BP 121/69
== END 2017-06-13 11:15 | disposition home or self-care (01) ==
LOC: ER 08:27
DX: J95.01 Hemorrhage from tracheostomy stoma (principal); Y83.8 Other surgical procedures as the cause of abnormal reaction of the patient, or of later complication, without mention of misadventure at the time of the procedure; J44.9 Chronic obstructive pulmonary disease, unspecified; I10 Essential (primary) hypertension; E11.9 Type 2 diabetes mellitus without complications; Z87.892 Personal history of anaphylaxis; Z88.5 Allergy status to narcotic agent; Z88.8 Allergy status to other drugs, medicaments and biological substances; Z91.013 Allergy to seafood
CPT/HCPCS: 99284

== ENCOUNTER 2017-06-22 11:07 | Emergency (ER) | payer OTHER ==
--- NOTE | 2017-06-22 11:30 | ER Document Report ---
ED General - General Chief Complaint: Swelling of Lower Extremity Stated Complaint: LEG ANKLE SWELLING Time Seen by Provider: 06/22/17 11:25 Mode of Arrival: Wheelchair Information source: Patient Notes: 61-year-old male presents with complaints of lower extremity edema. Patient notes swelling has been worsening over the past couple weeks denies any fevers or chills denies any shortness of breath difficulty breathing patient does have a history of congestive heart failure has had DVTs before TRAVEL OUTSIDE OF THE [place] IN LAST 30 DAYS: No - HPI Onset: Last week Onset/Duration: Persistent Quality of pain: Achy Severity: Mild Pain Level: 1 Associated symptoms: Leg swelling Exacerbated by: Denies Relieved by: Denies Similar symptoms previously: Yes Recently seen / treated by doctor: Yes - Related Data Allergies/Adverse Reactions: codeine [Codeine] Allergy (Severe, Verified 06/22/17 11:08) Facial swelling hydrocodone bitartrate [From Vicodin] Allergy (Severe, Verified 06/22/17 11:08) Anaphylaxis lisinopril Allergy (Severe, Verified 06/22/17 11:08) Anaphylaxis hydromorphone [From Dilaudid] Allergy (Verified 06/22/17 11:08) Difficulty breathing Iodine and Iodide Containing Produc Allergy (Verified 06/22/17 11:08) Anaphylaxis morphine Allergy (Verified 06/22/17 11:08) Itching oxycodone Allergy (Verified 06/22/17 11:08) Swelling of tongue shellfish derived Allergy (Verified 06/22/17 11:08) Anaphylaxis Past Medical History - Social History Smoking Status: Never Smoker Cigarette use (# per day): No Chew tobacco use (# tins/day): No Smoking Education Provided: No Family History: Arthritis, CAD - Mother and brother, CVA, DM, Hyperlipidemia, Hypertension, Malignancy - Past Medical History Cardiac Medical History: Reports: Hx Atrial Fibrillation, Hx Congestive Heart Failure, Hx Hypercholesterolemia, Hx Hypertension, Hx Pulmonary Embolism Denies: Hx Coronary Artery Disease, Hx Heart Attack, Hx Peripheral Vascular Disease, Hx Heart Murmur Pulmonary Medical History: Reports: Hx Asthma, Hx COPD, Hx Pneumonia - 7 years ago, Hx Sleep Apnea - hx only, not a current problem, no CPAP, Hx Tuberculosis Denies: Hx Bronchitis, Hx Respiratory Failure Neurological Medical History: Reports: Hx Cerebrovascular Accident. Denies: Hx Migraine Endocrine Medical History: Reports: Hx Diabetes Mellitus Type 2. Denies: Hx Graves' Disease, Hx Hyperthyroidism, Hx Hypothyroidism Renal/ Medical History: Reports: Hx Kidney Stones - 1981. Denies: Hx Benign Prostatic Hyperplasia, Hx End Stage Renal Disease, Hx Peritoneal Dialysis Malignancy Medical History: Denies Hx Lung Cancer GI Medical History: Reports: Hx Gastroesophageal Reflux Disease, Hx Hepatitis - Hep C, Hx Pancreatitis - 1988, Hx Ulcer. Denies: Hx Cirrhosis, Hx Crohn's Disease, Hx Hiatal Hernia, Hx Irritable Bowel, Hx Liver Failure, Hx Ulcerative Colitis Musculoskeltal Medical History: Reports Hx Arthritis, Denies Hx Fibromyalgia, Denies Hx Multiple Sclerosis, Denies Hx Muscular Dystrophy, Reports Hx Musculoskeletal Deformity, Reports Hx Musculoskeletal Trauma Skin Medical History: Denies Hx Psoriasis Psychiatric Medical History: Denies: Hx Bipolar Disorder, Hx Dementia, Hx Depression, Hx Post Traumatic Stress Disorder, Hx Schizophrenia Traumatic Medical History: Reports: Hx Fractures, Hx Spine Fracture. Denies: Hx Traumatic Brain Injury Infectious Medical History: Reports: Hx Hepatitis - Hep C Past Surgical History: Reports: Hx Abdominal Surgery - Hernia repair, bowel resection, Hx Appendectomy, Hx Bowel Surgery - bowel resection 1988, Hx Herniorrhaphy, Hx Oral Surgery, Hx Orthopedic Surgery - Spinal fusion. Meniscus repair., Other - Tracheostomy on 05/19/2017. Denies: Hx Cholecystectomy, Hx Colostomy, Hx Coronary Artery Bypass Graft, Hx Gastric Bypass Surgery, Hx Pacemaker, Hx Tonsillectomy - Immunizations Immunizations up to date: Yes Hx Diphtheria, Pertussis, Tetanus Vaccination: Yes Hx Pneumococcal Vaccination: 04/12/13 Review of Systems - Review of Systems Notes: REVIEW OF SYSTEMS: CONSTITUTIONAL : Denies fever, chills, or sweats. Denies recent illness. EENT: Trach in place CARDIOVASCULAR: Denies chest pain. Denies palpitations or racing or irregular heart beat. Bilateral edema RESPIRATORY: Denies cough, cold, or chest congestion. Denies shortness of breath, difficulty breathing, or wheezing. GASTROINTESTINAL: Denies abdominal pain or distention. Denies nausea, vomiting , or diarrhea. Denies blood in vomitus, stools, or per rectum. Denies black, tarry stools. Denies constipation. GENITOURINARY: Denies difficulty urinating, painful urination, burning, frequency, blood in urine, or discharge. MUSCULOSKELETAL: Denies back or neck pain or stiffness. No lower extremity edema SKIN: Mild discoloration of left lower extremity HEMATOLOGIC : Denies easy bruising or bleeding. LYMPHATIC: Denies swollen, enlarged glands. NEUROLOGICAL: Denies confusion or altered mental status. Denies passing out or loss of consciousness. Denies dizziness or lightheadedness. Denies headache. Denies weakness or paralysis or loss of use of either side. Denies problems with gait or speech. Denies sensory loss, numbness, or tingling. Denies seizures. PSYCHIATRIC: Denies anxiety or stress. Denies depression, suicidal ideation, or homicidal ideation. ALL OTHER SYSTEMS REVIEWED AND NEGATIVE. Dictation was performed using [employer] voice recognition software PHYSICAL EXAMINATION: GENERAL: Well-appearing, well-nourished and in no acute distress. HEAD: Atraumatic, normocephalic. EYES: Pupils equal round and reactive to light, extraocular movements intact, sclera anicteric, conjunctiva are normal. ENT: Nares patent, oropharynx clear without exudates. Moist mucous membranes. NECK: Trach in place no active bleeding normal range of motion, supple without lymphadenopathy LUNGS: Breath sounds clear to auscultation bilaterally and equal. No wheezes rales or rhonchi. HEART: Regular rate and rhythm without murmurs ABDOMEN: Soft, nontender, nondistended abdomen. No guarding, no rebound. No masses appreciated. Musculoskeletal: Bilateral lower extremity edema left slightly worse than right NEUROLOGICAL: Cranial nerves grossly intact. Normal speech, normal gait. Normal sensory, motor exams PSYCH: Normal mood, normal affect. SKIN: Warm, Dry, normal turgor, no rashes or lesions noted. Physical Exam - Vital signs Vitals: Temp Pulse Resp BP Pulse Ox 98.3 F 90 20 126/75 H 94 06/22/17 11:13 06/22/17 11:13 06/22/17 11:13 06/22/17 11:13 06/22/17 11:13 Course - Re-evaluation Re-evalutation: 06/22/17 11:33 Doppler has been ordered but I believe this may be more secondary to congestive heart failure rather than actually secondary to a DVT patient is on hydrochlorothiazide and will increase the dosage if needed 06/22/17 19:25 Doppler was negative for DVT, patient has been encouraged to double his hydrochlorothiazide for the next 3 days and follow-up with primary care physician. He is in no respiratory distress is not having any chest pain or any other complaints and is stable for discharge After performing a Medical Screening Examination, I estimate there is LOW risk for RUPTURED ESOPHAGUS, PNEUMOTHORAX, PULMONARY EMBOLISM, ACUTE CORONARY SYNDROME, OR THORACIC AORTIC DISSECTION, thus I consider the discharge disposition reasonable. I have reevaluated this patient multiple times and no significant life threatening changes are noted. The patient and I have discussed the diagnosis and risks, and we agree with discharging home with close follow-up. We also discussed returning to the Emergency Department immediately if new or worsening symptoms occur. We have discussed the symptoms which are most concerning (e.g., bloody sputum, worsening pain or shortness of breath) that necessitate immediate return. - Vital Signs Vital signs: Temp Pulse Resp BP Pulse Ox 98.4 F 96 18 135/88 H 96 06/22/17 12:31 06/22/17 12:31 06/22/17 12:31 06/22/17 12:31 06/22/17 12:31 - Diagnostic Test Radiology reviewed: Image reviewed, Reports reviewed - No DVT report given to patient Discharge - Discharge Clinical Impression: Lower extremity edema CHF (congestive heart failure) Qualifiers: Heart failure type: unspecified Heart failure chronicity: chronic Qualified Code(s): I50.9 - Heart failure, unspecified Condition: Stable Disposition: HOME, SELF-CARE Instructions: Congestive Heart Failure ([facility]) Additional Instructions: Please double your intake of your diuretic for the next 3 days and follow-up with your primary care physician for further evaluation and care
--- NOTE | 2017-06-22 12:11 | RADIOLOGY REPORT (SQ) ---
EXAM DESCRIPTION: CHEST PA/LAT COMPLETED DATE/TIME: 06/22/2017 11:47 am REASON FOR STUDY: peripheral edema COMPARISON: CT chest 06/08/2017 Two-view chest 06/01/2017, 05/27/2017 EXAM PARAMETERS: NUMBER OF VIEWS: two views TECHNIQUE: Digital Frontal and Lateral radiographic views of the chest acquired. RADIATION DOSE: NA LIMITATIONS: none FINDINGS: LUNGS AND PLEURA: Bandlike atelectasis or scarring just above both lung bases, stable. No fluffy alveolar infiltrates worrisome for edema or pneumonia. No pleural effusion. No pneumothor ax. MEDIASTINUM AND HILAR STRUCTURES: No masses or contour abnormalities. HEART AND VASCULAR STRUCTURES: Heart normal size. No evidence for failure. BONES: Diffuse degenerative changes thoracic spine. Bones osteopenic. HARDWARE: Tracheostomy tube present, tip in the upper trachea in good positioning. OTHER: No other significant finding. IMPRESSION: Chronic appearing bandlike scarring or atelectasis at both lung bases. Tracheostomy in good positioning No acute pulmonary edema TECHNICAL DOCUMENTATION: JOB ID: [id number]- All Rights Reserved Reading location - IP/workstation name: [email or web address]
[2017-06-22 12:32] VITALS: BP 135/88
--- NOTE | 2017-06-22 13:01 | XCELERA REPORT ---
[address] [address] Lower Extremity Venous Evaluation Name: SHANAE TSANG JR Age: 61 yrs Gender: Male : 1955 Patient Status: Preadmit Patient Location: ER Study Date: 06/22/2017 12:08 PM Procedure: Color flow and duplex imaging of the veins of the left lower extremity as well as the right Common Femoral vein. Reason For Study: left lower extremity Ordering Physician: VELVET CENTENO Performed By: Brynn Hager Right Sided Venous Evaluation The right common femoral vein is fully compressible. Spontaneous and phasic flow is present in the right common femoral vein. Left Sided Venous Evaluation Normal vessel filling wall to wall, compression and augmentation as well as Colour flow down to the infrageniculate veins. Interpretation Summary No duplex evidence of DVT or obstruction in the left lower extremity nor in the right Common Femoral vein. : VELVET CENTENO > Cj Gurrola
== END 2017-06-22 12:30 | disposition home or self-care (01) ==
LOC: ER 11:07
DX: I11.0 Hypertensive heart disease with heart failure (principal); I50.9 Heart failure, unspecified; R60.0 Localized edema; E11.9 Type 2 diabetes mellitus without complications; J44.9 Chronic obstructive pulmonary disease, unspecified; Z86.718 Personal history of other venous thrombosis and embolism; Z86.711 Personal history of pulmonary embolism; Z88.5 Allergy status to narcotic agent; Z87.892 Personal history of anaphylaxis; Z88.8 Allergy status to other drugs, medicaments and biological substances; Z91.041 Radiographic dye allergy status; Z91.013 Allergy to seafood; Z93.0 Tracheostomy status; Z79.899 Other long term (current) drug therapy
CPT/HCPCS: 71046; 93971; 99284

== ENCOUNTER 2017-06-26 11:16 | Observation (INO) | payer OTHER ==
[2017-06-26] MEDS ORDERED: NORMAL SALINE 1000 ML 500 ML IV ONE (11:46)
--- NOTE | 2017-06-26 11:49 | ER Document Report ---
ED Medical Screen (RME) - General Chief Complaint: Chest Pain Stated Complaint: COUGH Time Seen by Provider: 06/26/17 11:39 Mode of Arrival: Wheelchair Information source: Patient, Relative Notes: 61 y.o male with a PMHx of blood clots in his legs and lungs for which he takes Eliquis presents to the ED with a sudden onset of SOB, cough, CP this morning. Pt has reports that when he coughs he coughs up blood clots and causes the CP that is lingering. He states that his HR is usually in the 80s and since this morning his HR has been elevated. Pt states that he was without symptoms yesterday and that the neighboring apartment has gotten fumigated for bed bugs yesterday/this morning. He states that he has been taking his medications as prescribed and took his Eliquis this morning. He denies any Hx of [place] or kidney problems. I have greeted and performed a rapid initial assessment of the patient. A comprehensive ED assessment and evaluation of the patient, analysis of test results, and completion of the medical decision making process will be conducted by additional ED providers. TRAVEL OUTSIDE OF THE [place] IN LAST 30 DAYS: No - Related Data Allergies/Adverse Reactions: codeine [Codeine] Allergy (Severe, Verified 06/22/17 11:08) Facial swelling hydrocodone bitartrate [From Vicodin] Allergy (Severe, Verified 06/22/17 11:08) Anaphylaxis lisinopril Allergy (Severe, Verified 06/22/17 11:08) Anaphylaxis hydromorphone [From Dilaudid] Allergy (Verified 06/22/17 11:08) Difficulty breathing Iodine and Iodide Containing Produc Allergy (Verified 06/22/17 11:08) Anaphylaxis morphine Allergy (Verified 06/22/17 11:08) Itching oxycodone Allergy (Verified 06/22/17 11:08) Swelling of tongue shellfish derived Allergy (Verified 06/22/17 11:08) Anaphylaxis Past Medical History - General Information source: Patient, Relative - Social History Chew tobacco use (# tins/day): No Frequency of alcohol use: Occasional Drug Abuse: None - Past Medical History Cardiac Medical History: Reports: Hx Atrial Fibrillation, Hx Congestive Heart Failure, Hx Hypercholesterolemia, Hx Hypertension, Hx Pulmonary Embolism Pulmonary Medical History: Reports: Hx Asthma, Hx COPD, Hx Pneumonia - 7 years ago, Hx Sleep Apnea - hx only, not a current problem, no CPAP, Hx Tuberculosis Neurological Medical History: Reports: Hx Cerebrovascular Accident Endocrine Medical History: Reports: Hx Diabetes Mellitus Type 2 Renal/ Medical History: Reports: Hx Kidney Stones - 1981. Denies: Hx Peritoneal Dialysis GI Medical History: Reports: Hx Gastroesophageal Reflux Disease, Hx Hepatitis - Hep C, Hx Pancreatitis - 1988, Hx Ulcer Musculoskeltal Medical History: Reports Hx Arthritis, Reports Hx Musculoskeletal Deformity, Reports Hx Musculoskeletal Trauma Skin Medical History: Denies Hx Psoriasis Traumatic Medical History: Reports: Hx Fractures, Hx Spine Fracture Infectious Medical History: Reports: Hx Hepatitis - Hep C Past Surgical History: Reports: Hx Abdominal Surgery - Hernia repair, bowel resection, Hx Appendectomy, Hx Bowel Surgery - bowel resection 1988, Hx Herniorrhaphy, Hx Oral Surgery, Hx Orthopedic Surgery - Spinal fusion. Meniscus repair., Other - Tracheostomy on 05/19/2017 - Immunizations Immunizations up to date: Yes Hx Diphtheria, Pertussis, Tetanus Vaccination: Yes History of Influenza Vaccine for 01/2017 - 06/2017 Season: Refused Review of Systems - Review of Systems Constitutional: No symptoms reported EENT: No symptoms reported Cardiovascular: See HPI, Chest pain, Heart racing Respiratory: See HPI, Cough, Short of breath, Other - "coughing up blood clots" Gastrointestinal: No symptoms reported Genitourinary: No symptoms reported Male Genitourinary: No symptoms reported Musculoskeletal: No symptoms reported Skin: No symptoms reported Hematologic/Lymphatic: No symptoms reported Neurological/Psychological: No symptoms reported -: Yes All other systems reviewed and negative Physical Exam - Vital signs Vitals: Temp Pulse Resp BP Pulse Ox 99.2 F 135 H 24 H 126/103 H 95 06/26/17 11:36 06/26/17 11:36 06/26/17 11:36 06/26/17 11:36 06/26/17 11:36 - Notes Notes: Physical Exam: General: Alert, appears well. HEENT: Normocephalic. Atraumatic. PERRLA. Extraocular movements intact. Oropharynx clear. Neck: Supple. Respiratory: No respiratory distress. Cardiovascular: Tachycardic rate, regular rhythm. Abdominal: Normal Inspection. No distension. Extremities: Moves all four extremities. Neurological: Normal cognition. AAOx4. Normal speech. Psychological: Normal affect. Normal Mood. Skin: Warm. Dry. Normal color. Course - Vital Signs Vital signs: Temp Pulse Resp BP Pulse Ox 99.2 F 135 H 24 H 126/103 H 95 06/26/17 11:36 06/26/17 11:36 06/26/17 11:36 06/26/17 11:36 06/26/17 11:36 Scribe Documentation - Scribe Written by Sera:: Sera Fisher 06/26/17 1152 acting as scribe for :: Juan Alberto
--- NOTE | 2017-06-26 12:59 | ER Document Report ---
ED Cardiac - General Chief Complaint: Chest Pain Stated Complaint: COUGH Time Seen by Provider: 06/26/17 11:39 Mode of Arrival: Wheelchair Notes: The patient is a 61-year-old male, past medical history DVT and PE (on Eliquiis bid), trach after multiple anaphylaxis reaction, hypertension, cocaine abuse, presents with sudden onset of right upper chest pain, shortness of breath and feeling his heart racing. Patient also was coughing up blood clots a few days ago. Patient said he has not missed any Eliquis doses. He denies calf tenderness, fevers, back pain, abdominal pain, nausea, vomiting, radiation of pain, headache or increased drainage from his trach. TRAVEL OUTSIDE OF THE [place] IN LAST 30 DAYS: No - Related Data Allergies/Adverse Reactions: codeine [Codeine] Allergy (Severe, Verified 06/26/17 12:49) Facial swelling hydrocodone bitartrate [From Vicodin] Allergy (Severe, Verified 06/26/17 12:49) Anaphylaxis lisinopril Allergy (Severe, Verified 06/26/17 12:49) Anaphylaxis hydromorphone [From Dilaudid] Allergy (Verified 06/26/17 12:49) Difficulty breathing Iodine and Iodide Containing Produc Allergy (Verified 06/26/17 12:49) Anaphylaxis morphine Allergy (Verified 06/26/17 12:49) Itching oxycodone Allergy (Verified 06/26/17 12:49) Swelling of tongue shellfish derived Allergy (Verified 06/26/17 12:49) Anaphylaxis Past Medical History - General Information source: Patient, Relative - Social History Smoking Status: Former Smoker Chew tobacco use (# tins/day): No Frequency of alcohol use: Occasional Drug Abuse: None Family History: Arthritis, CAD - Mother and brother, CVA, DM, Hyperlipidemia, Hypertension, Malignancy Patient has suicidal ideation: No Patient has homicidal ideation: No - Past Medical History Cardiac Medical History: Reports: Hx Atrial Fibrillation, Hx Congestive Heart Failure, Hx Hypercholesterolemia, Hx Hypertension, Hx Pulmonary Embolism Denies: Hx Coronary Artery Disease, Hx Heart Attack, Hx Peripheral Vascular Disease, Hx Heart Murmur Pulmonary Medical History: Reports: Hx Asthma, Hx COPD, Hx Pneumonia - 7 years ago, Hx Sleep Apnea - hx only, not a current problem, no CPAP, Hx Tuberculosis Denies: Hx Bronchitis, Hx Respiratory Failure Neurological Medical History: Reports: Hx Cerebrovascular Accident. Denies: Hx Migraine Endocrine Medical History: Reports: Hx Diabetes Mellitus Type 2. Denies: Hx Graves' Disease, Hx Hyperthyroidism, Hx Hypothyroidism Renal/ Medical History: Reports: Hx Kidney Stones - 1981. Denies: Hx Benign Prostatic Hyperplasia, Hx End Stage Renal Disease, Hx Peritoneal Dialysis Malignancy Medical History: Denies Hx Lung Cancer GI Medical History: Reports: Hx Gastroesophageal Reflux Disease, Hx Hepatitis - Hep C, Hx Pancreatitis - 1988, Hx Ulcer. Denies: Hx Cirrhosis, Hx Crohn's Disease, Hx Hiatal Hernia, Hx Irritable Bowel, Hx Liver Failure, Hx Ulcerative Colitis Musculoskeltal Medical History: Reports Hx Arthritis, Denies Hx Fibromyalgia, Denies Hx Multiple Sclerosis, Denies Hx Muscular Dystrophy, Reports Hx Musculoskeletal Deformity, Reports Hx Musculoskeletal Trauma Skin Medical History: Denies Hx Psoriasis Psychiatric Medical History: Denies: Hx Bipolar Disorder, Hx Dementia, Hx Depression, Hx Post Traumatic Stress Disorder, Hx Schizophrenia Traumatic Medical History: Reports: Hx Fractures, Hx Spine Fracture. Denies: Hx Traumatic Brain Injury Infectious Medical History: Reports: Hx Hepatitis - Hep C Past Surgical History: Reports: Hx Abdominal Surgery - Hernia repair, bowel resection, Hx Appendectomy, Hx Bowel Surgery - bowel resection 1988, Hx Herniorrhaphy, Hx Oral Surgery, Hx Orthopedic Surgery - Spinal fusion. Meniscus repair., Other - Tracheostomy on 05/19/2017. Denies: Hx Cholecystectomy, Hx Colostomy, Hx Coronary Artery Bypass Graft, Hx Gastric Bypass Surgery, Hx Pacemaker, Hx Tonsillectomy - Immunizations Immunizations up to date: Yes Hx Diphtheria, Pertussis, Tetanus Vaccination: Yes Hx Pneumococcal Vaccination: 04/12/13 Physical Exam - Vital signs Vitals: Temp Pulse Resp BP Pulse Ox 99.2 F 135 H 24 H 126/103 H 95 06/26/17 11:36 06/26/17 11:36 06/26/17 11:36 06/26/17 11:36 06/26/17 11:36 - Notes Notes: PHYSICAL EXAMINATION: GENERAL: Well-appearing, well-nourished and in no acute distress. HEAD: Atraumatic, normocephalic. EYES: Pupils equal round and reactive to light, extraocular movements intact, sclera anicteric, conjunctiva are normal. ENT: nares patent, oropharynx clear without exudates. Moist mucous membranes. NECK: Trach in neck without drainage. Normal range of motion, supple without lymphadenopathy LUNGS: Breath sounds clear to auscultation bilaterally and equal. No wheezes rales or rhonchi. HEART: Regular rhythm, tachycardia. ABDOMEN: Soft, nontender, normoactive bowel sounds. No guarding, no rebound. No masses appreciated. EXTREMITIES: Normal range of motion, no pitting or edema. No cyanosis. NEUROLOGICAL: Cranial nerves grossly intact. Normal speech, normal gait. Normal sensory and motor exams. PSYCH: Normal mood, normal affect. SKIN: Warm, Dry, normal turgor, no rashes or lesions noted. Course - Re-evaluation Re-evalutation: Concern for PE despite being on Eliquis due to chest pain, shortness of breath and persistent tachycardia. CTA ordered and there is no evidence of a PE at this time. Patient is in no acute distress. Patient has multiple risk factors for ACS. His HEART score is 5 (1 for concerning story, 1 for EKG changes, 1 for age, 2 for risk factors, 0 for troponin). He remains chest pain-free while in the emergency room. His persistent tachycardia may be related to his cocaine abuse. His primary care physician is Dr. Osuna. 06/26/17 15:[address] Mann and will admit patient to Tele Obs for further evaluation and treatment. - Vital Signs Vital signs: Temp Pulse Resp BP Pulse Ox 99.2 F 135 H 18 133/91 H 100 06/26/17 11:36 06/26/17 11:36 06/26/17 15:01 06/26/17 15:00 06/26/17 15:01 - Laboratory Result Diagrams: 06/26/17 13:29 06/26/17 13:29 Laboratory results interpreted by me: 06/26/17 06/26/17 13:29 13:29 Hgb 13.3 L RDW 15.5 H Plt Count 142 L Monocytes % 13.4 H Glucose 117 H - Diagnostic Test Radiology reviewed: Image reviewed, Reports reviewed Radiology results interpreted by me: CTA Chest: No PE. - EKG Interpretation by Me EKG shows normal: Sinus rhythm, [place], Intervals, QRS Complexes, ST-T Waves Rate: Tachycardia When compared to previous EKG there are: No significant change Discharge - Discharge Clinical Impression: Tachycardia Chest pain Qualifiers: Chest pain type: unspecified Qualified Code(s): R07.9 - Chest pain, unspecified Condition: Stable Disposition: ADMITTED OBSERVATION Admitting Provider: [facility] Unit Admitted: Telemetry Referrals: FRANCES OSUNA MD [Primary Care Provider] - Follow up as needed
[2017-06-26 13:54] LABS: ABSOLUTE EOSINOPHILS # (AUTO) 0.2 10^3/uL (0.0-0.6); ABSOLUTE LYMPHOCYTES (AUTO) 1.8 10^3/uL (0.5-4.7); ABSOLUTE MONOCYTES (AUTO) 1.2 10^3/uL (0.1-1.4); ABSOLUTE NEUT (AUTO) 5.4 10^3/uL (1.7-8.2); BASOPHILS % (AUTO) 0.4 % (0-2); EOSINOPHILS % (AUTO) 2.7 % (0-6); HEMATOCRIT 40.4 % (37.9-51.0); HEMOGLOBIN 13.3 g/dL (13.5-17.0); LYMPHOCYTES % (AUTO) 20.9 % (13-45); MEAN CORPUSCULAR HGB CONC 32.8 g/dL (32.0-36.0); MEAN CORPUSCULAR VOLUME 88 fl (80-97); MONOCYTES % (AUTO) 13.4 % (3-13); PLATELET COUNT 142 10^3/uL (150-450); RED BLOOD COUNT 4.57 10^6/uL (4.35-5.55); RED CELL DISTRIBUTION WIDTH 15.5 % (11.5-14.0); SEGMENTED NEUTROPHILS % (AUTO) 62.6 % (42-78); TOTAL CELLS COUNTED % (AUTO) 100 %; WHITE BLOOD COUNT 8.6 10^3/uL (4.0-10.5)
[2017-06-26 14:02] LABS: INTERNATIONAL RATION (INR) 0.93; PROTHROMBIN TIME 13.1 SEC (11.4-15.4)
--- NOTE | 2017-06-26 14:11 | RADIOLOGY REPORT (SQ) ---
EXAM DESCRIPTION: CTA CHEST COMPLETED DATE/TIME: 06/26/2017 1:48 pm REASON FOR STUDY: hx of PE, coughing up blood, tachy COMPARISON: Multiple, most recent 06/08/2017 TECHNIQUE: CT scan of the chest performed using helical scanning technique with dynamic intravenous contrast injection. Images reviewed with lung, soft tissue and bone windows. Reconstructed coronal and sagittal MPR images reviewed. Additional 3 dimensional post-processing performed to develop Maximal Intensity Projection images (DE P). All images stored on PACS. All CT scanners at this facility use dose modulation, iterative reconstruction, and/or weight based d osing when appropriate to reduce radiation dose to as low as reasonably achievable (ALARA). [facility]: Dose Right [facility]: CareDose [facility]: Dose Right [facility]: Teradose 4D [facility]: HALKAR CONTRAST TYPE AND DOSE: contrast/concentration: Isovue 370.00 mg/ml; Total Contrast Delivered: 86.0 ml; Total Saline Delivered: 90.0 ml Contrast bolus optimized for the pulmonary arteries. Not diagnostic for the aorta. RENAL FUNCTION: GFR > 60. RADIATION DOSE: CT Rad equipment meets quality standard of care and radiation dose reduction techniq ues were employed. CTDIvol: 33.1 - 34.5 mGy. DLP: 1296 mGy-cm. . LIMITATIONS: None. FINDINGS: LUNGS AND PLEURA: Chronic interstitial changes. Scarring in the lingula. No effusions. AORTA AND GREAT VESSELS: No aneurysm. Contrast bolus not optimized for the aorta. HEART: No pericardial effusion. Cardiomegaly. PULMONARY ARTERIES: No emboli visualized in the main pulmonary arteries or the segmental branches. HILAR AND MEDIASTINAL STRUCTURES: No identified masses or abnormal nodes. HARDWARE: None in the chest. UPPER ABDOMEN: Limited exam. Stable right adrenal nodule. THYROID AND OTHER SOFT TISSUES: No masses. No adenopathy. BONES: No acute or significant finding. 3D MIPS: Confirm above findings. OTHER: No other significant finding. IMPRESSION: No PE. No acute findings. COMMENT: Quality ID # [id number]: Final reports with documentation of one or more dose reduction techniques (e.g., Automated exposure control, adjustment of the mA and/or kV according to patient size, use of iterative reconstruction technique) TECHNICAL DOCUMENTATION: JOB ID: [id number]- All Rights Reserved Reading location - IP/workstation name: [email or web address]
[2017-06-26 14:15] LABS: ALANINE AMINOTRANSFERASE 29 U/L (21-72); ALBUMIN 4.1 g/dL (3.5-5.0); ALKALINE PHOSPHATASE 114 U/L (38-126); ANION GAP 12 (5-19); ASPARTATE AMINO TRANSFERASE 22 U/L (17-59); BILIRUBIN,DIRECT 0.2 mg/dL (0.0-0.4); BILIRUBIN,TOTAL 0.4 mg/dL (0.2-1.3); BLOOD UREA NITROGEN 7 mg/dL (7-20); CARBON DIOXIDE 28 mmol/L (22-30); CHLORIDE 100 mmol/L (98-107); GLUCOSE 117 mg/dL (75-110); POTASSIUM 4.1 mmol/L (3.6-5.0); SODIUM 139.5 mmol/L (137-145); TOTAL PROTEIN 6.8 g/dL (6.3-8.2)
--- NOTE | 2017-06-26 16:21 | EKG REPORT ---
SEVERITY:- BORDERLINE ECG - SINUS TACHYCARDIA PROBABLE LEFT ATRIAL ABNORMALITY NONSPECIFIC ST-T CHANGES ANTERIOR LEADS : Confirmed by: Elias Arce MD 26-Jun-2017 16:20:02
[2017-06-26 16:22] LABS: URINE AMPHETAMINES SCREEN NEGATIVE; URINE BARBITURATES SCREEN NEGATIVE; URINE BENZODIAZEPINES SCREEN UNCONFIRMED POSITIVE; URINE COCAINE SCREEN NEGATIVE; URINE MARIJUANA (THC) SCREEN NEGATIVE; URINE METHADONE SCREEN NEGATIVE; URINE PHENCYCLIDINE SCREEN NEGATIVE
[2017-06-26] MEDS ORDERED: MAG HYDROX/AL HYDROX/SIMETH SUSP 30 ML UDCUP PO PRN (16:49)
[2017-06-26] MEDS ORDERED: PROMETHAZINE HCL 25 MG TABLET PO PRN (16:49)
[2017-06-26] MEDS ORDERED: ACETAMINOPHEN 325 MG TABLET PO PRN (16:49)
[2017-06-26] MEDS ORDERED: MAGNESIUM HYDROXIDE SUSP 30 ML UDCUP PO PRN (16:49)
--- NOTE | 2017-06-26 16:49 | PDOC H&P ---
History of Present Illness Admission Date/PCP: 06/26/17 15:38 FRANCES OSUNA MD Patient complains of: Sudden onset of chest pain associated with coughing which occurred earlier this morning. History of Present Illness: SHANAE TSANG JR is a 61 year old male who was last admitted from 05/19/2017 until 06/04/2017. During that admission the patient underwent an emergent tracheostomy for airway occlusion secondary to angioedema. General surgery performed the procedure well the patient was in the emergency department. He presented with recurrent angioedema. Attempts at intubation were unsuccessful and the patient underwent tracheostomy. Since the patient's tracheostomy he has not had any recurrent bouts of angioedema that he is aware of. He actually attributed his last presentation to using cocaine which he used for his birthday. However, he was supposed to keep an appointment at [facility] for further evaluation. In any event, this morning the patient woke up at 06 100. His blood pressure was 143/95 and his heart rate was 126. He ate breakfast and had some juice. He took his metformin, iron, Eliquis and metoprolol. He then went back to bed. He woke up at 9:00 and started coughing. He was coughing significantly. He felt that his trach was occluded. He coughed out a small blood clot. His was notified that they are fumigating the apartment next to his in the same building. Therefore, the patient felt that he needed to get out of that situation. Since he started coughing at 9:00 this morning he has been having this dull pain over the sternum. It starts in the right anterior chest progresses and crosses the midline to the left anterior chest and then radiates to the left armpit. The patient took 2 low-dose baby aspirin with good resolution of pain. The pain comes back but at a lesser intensity with coughing. The patient has not had any fevers, chills or sweats but he does at times feel cold. He has not had any nausea vomiting or diarrhea. He states that he has been coughing up blood since the tracheostomy was placed in early May. On review of systems his only other complaint is that he has been having swelling in his legs. His [facility] sent him to the emergency department a couple of days ago for Dopplers to rule out lower extremity DVT. Apparently, per him this was negative. The only other pertinent positive on review of systems is that he has sciatic pain in the left leg. Past Medical History Cardiac Medical History: Reports: Atrial Fibrillation, Congestive Heart Failure , Hyperlipidema, Hypertension, Pulmonary Embolism Denies: Coronary Artery Disease, Myocardial Infarction, Peripheral Vascular Disease, Heart Murmur Pulmonary Medical History: Reports: Asthma, Chronic Obstructive Pulmonary Disease (COPD), Pneumonia - 7 years ago, Sleep Apnea - hx only, not a current problem, no CPAP, Tuberculosis Denies: Bronchitis, Respiratory Failure Neurological Medical History: Denies: Migraine Endocrine Medical History: Reports: Diabetes Mellitus Type 2 Denies: Hyperthyroidism, Hypothyroidism Renal/ Medical History: Denies: End Stage Renal Disease Malignancy Medical History: Denies: Lung Cancer GI Medical History: Reports: Gastroesophageal Reflux Disease, Hepatitis - Hep C Denies: Cirrhosis, Crohn's Disease, Hiatal Hernia, Ulcerative Colitis Musculoskeltal Medical History: Reports: Arthritis Denies: Fibromyalgia Skin Medical History: Denies: Psoriasis Psychiatric Medical History: Denies: Bipolar Disorder, Dementia, Depression, Post Traumatic Stress Disorder Traumatic Medical History: Denies: Traumatic Brain Injury Hematology: Denies: Sickle Cell Disease, Bleeding Tendencies Past Surgical History Past Surgical History: Reports: Appendectomy, Herniorrhaphy, Orthopedic Surgery - Spinal fusion. Meniscus repair., Other - Tracheostomy on 05/19/2017 Denies: Cholecystectomy, Colostomy, Coronary Artery Bypass Graft, Gastric Bypass Surgery, Pacemaker, Tonsillectomy Social History Smoking Status: Former Smoker Frequency of Alcohol Use: Rare Hx Recreational Drug Use: Yes - Last used dry cocaine 3 months ago Drugs: Cocaine - Patient admitted to cocaine use when confronted Hx Prescription Drug Abuse: No - Advance Directive Resuscitation Status: Full Code Surrogate healthcare decision maker:: The patient requests that his be his surrogate decision maker. Family History Family History: Arthritis, CAD - Mother and brother, CVA, DM, Hyperlipidemia, Hypertension, Malignancy Parental Family History Reviewed: Yes - Mother had coronary artery disease and at age 69 Children Family History Reviewed: Yes Sibling(s) Family History Reviewed.: Yes Medication/Allergy Home Medications: Albuterol Sulfate [Proair HFA Inhalation Aerosol 8.5 gm MDI] 2 puff IH Q6HP PRN 05/19/17 Amitriptyline HCl [Elavil 25 mg Tablet] 75 mg PO QHS 05/19/17 Amlodipine Besylate [Norvasc 10 mg Tablet] 10 mg PO DAILY 05/19/17 Apixaban [Eliquis 5 mg Tablet] 5 mg PO Q12 05/19/17 Ascorbic Acid [Vitamin C 500 mg Tablet] 500 mg PO DAILY 05/19/17 Aspirin [Ecotrin 81 mg EC Tablet] 81 mg PO DAILY 05/19/17 Budesonide/Formoterol Fumarate [Symbicort 160-4.5 Mcg Inhaler] 2 puff IH Q12 10/27 Dextrose [Glucose] 1 tab PO QIDP PRN 05/19/17 Epinephrine [Epipen] 3 ml IM ONCEP PRN 05/19/17 Ferrous Sulfate 324 mg PO DAILY 05/19/17 Fluticasone Propionate [Flonase Nasal [place] 50 Mcg/[place] 16 gm] 1 spray NASL DAILY 05/19/17 Furosemide [Lasix 20 mg Tablet] 20 mg PO DAILY 05/19/17 Gabapentin [Neurontin 100 mg Capsule] 100 mg PO Q8 05/19/17 Hydrochlorothiazide [Hydrodiuril 25 mg Tablet] 25 mg PO DAILY 05/19/17 Insulin Glargine,Hum.rec.anlog [Lantus Solostar] 60 unit SQ QHS 05/19/17 Isosorbide Mononitrate [Isosorbide Mononitrate ER] 30 mg PO QAM 05/19/17 Metformin HCl [Glucophage] 1,000 mg PO BIDACBS 05/19/17 Metoprolol Tartrate [Lopressor 50 mg Tablet] 25 mg PO Q12 05/19/17 Omeprazole 40 mg PO DAILY 05/19/17 Pravastatin Sodium [Pravachol] 20 mg PO QHS 05/19/17 Ranitidine HCl [Zantac 150 mg Tablet] 150 mg PO QHS 05/19/17 Sildenafil Citrate [Viagra] 100 mg PO DAILYP PRN 05/19/17 Terazosin HCl [Hytrin] 4 mg PO QHS 05/19/17 Tiotropium [place] [Spiriva Handihaler 5 Cap/Kit (18 Mcg/Cap)] 1 puff IH DAILY 05/19/17 Tramadol HCl [Ultram 50 mg Tablet] 50 mg PO Q6 PRN 05/19/17 Insulin Aspart [Novolog Flexpen] 22 unit SQ ASDIR 06/26/17 Insulin Aspart [Novolog Flexpen] 22 unit SUBCUT ACBRKFST 06/26/17 Insulin Aspart [Novolog Flexpen] 30 unit SUBCUT ACSUPPER 06/26/17 Allergies/Adverse Reactions: codeine [Codeine] Allergy (Severe, Verified 06/26/17 12:49) Facial swelling hydrocodone bitartrate [From Vicodin] Allergy (Severe, Verified 06/26/17 12:49) Anaphylaxis lisinopril Allergy (Severe, Verified 06/26/17 12:49) Anaphylaxis hydromorphone [From Dilaudid] Allergy (Verified 06/26/17 12:49) Difficulty breathing Iodine and Iodide Containing Produc Allergy (Verified 06/26/17 12:49) Anaphylaxis morphine Allergy (Verified 06/26/17 12:49) Itching oxycodone Allergy (Verified 06/26/17 12:49) Swelling of tongue shellfish derived Allergy (Verified 06/26/17 12:49) Anaphylaxis Review of Systems Constitutional: ABSENT: as per HPI, anorexia, chills, fatigue, fever(s), headache(s), night sweats, weakness, weight gain, weight loss, other Eyes: ABSENT: as per HPI, visual disturbances, other Ears: ABSENT: as per HPI, hearing changes, other Nose, Mouth, and Throat: ABSENT: as per HPI, headache(s), mouth pain, sore throat, vertigo, other Breasts: ABSENT: as per HPI, other Cardiovascular: PRESENT: as per HPI Respiratory: PRESENT: cough, hemoptysis Gastrointestinal: ABSENT: as per HPI, abdominal pain, bloating, coffee ground emesis, constipation, diarrhea, dysphagia, heartburn, hematemesis, hematochezia , melena, nausea, vomiting, other Genitourinary: ABSENT: as per HPI, difficulty urinating, dysuria, hematuria, nocturia, other Musculoskeletal: ABSENT: as per HPI, back pain, deformity, joint swelling, muscle weakness, other Integumentary: ABSENT: as per HPI, diaphoresis, erythema, lesions, pruritus, rash, wounds, other Neurological: ABSENT: as per HPI, abnormal gait, abnormal movements, abnormal speech, confusion, convulsions, dizziness, focal weakness, frequent falls, lack of coordination, memory loss, numbness, paresthesias, restless legs, syncope, tingling, tremor(s), vertigo, weakness, other Psychiatric: ABSENT: as per HPI, anxiety, depression, hallucinations, homidical ideation, suicidal ideation, other Endocrine: ABSENT: as per HPI, cold intolerance, flushing, heat intolerance, menstrual abnormalities, polydipsia, polyphagia, polyuria, other Hematologic/Lymphatic: ABSENT: as per HPI, easy bleeding, easy bruising, lymphadenopathy, other Allergic/Immunologic: ABSENT: as per HPI, seasonal rhinorrhea, other Physical Exam Vital Signs: Temp Pulse Resp BP Pulse Ox 99.2 F 135 H 18 133/91 H 100 06/26/17 11:36 06/26/17 11:36 06/26/17 15:01 06/26/17 15:00 06/26/17 15:01 Additional comments: The patient appears older than the age of 61. However, his cognition and mentation are normal. His facial appearance is significant for the following. Cranial nerves II through XII are intact. The patient's pupils are equally round and reactive to light. The patient's oropharynx demonstrates a very crowded airway, Lili Essie for. The patient's teeth shows that he has some caps that are gold. Otherwise, his dentition is fairly good. His neck is enlarged at 19 cm. The tracheostomy is in place. The site is clean dry and intact. He does have a little granuloma on the skin next to the trach. No bloody discharge is noted. The neck is supple. The trachea appears to be midline. Palpablethyroid is nonpalpable. The patient's lungs are clear to auscultation bilaterally both anteriorly and posteriorly. His cardiac exam is regular. His exam is consistent with tachycardia. He does not have any murmurs , gallops or rubs. I do not appreciate an S4. The abdomen is obese but soft. Bowel sounds are present and are normoactive. He does not have hernias or masses noted and there is no Guarding or rebound. Lower extremities demonstrate trace edema. This is nonpitting. Skin is clean. No lesions or rashes are noted but the patient is noted to be diaphoretic. Results Impressions: Chest/Abdomen CTA 06/26/17 11:46 IMPRESSION: No PE. No acute findings. Assessment & Plan - Diagnosis (1) Uncontrolled hypertension Is this a current diagnosis for this admission?: Yes Plan: Continue outpatient medications and adjust for systolic blood pressure less than 140 and diastolic blood pressure less than 90. (2) Chest pain Qualifiers: Chest pain type: unspecified Qualified Code(s): R07.9 - Chest pain, unspecified Is this a current diagnosis for this admission?: Yes Plan: Likely due to coughing. However, will rule out for myocardial infarction. Clinically, patient does not appear to have any infectious etiology for the coughing. (3) Tachycardia Is this a current diagnosis for this admission?: Yes Plan: We will continue amlodipine and metoprolol. The patient does not admit to any noncompliance with his medications. His tox screen is only positive for benzodiazepine. Perhaps, there could be a concern about withdrawal. He has not recently used any cocaine. He may be somewhat dehydrated. However, his renal function is normal and in general I would say that his labs look good. The increased coughing could also lead to tachycardia but this should not be sustained. The patient has been ruled out for pulmonary embolus. He is not anemic. Again, I am not suspicious of infection. I will also check thyroid studies. (4) Bleeding from trach due to coagulopathy Is this a current diagnosis for this admission?: Yes Plan: Appears that the hemoptysis is quite minimal. Therefore, I plan on continuing the Eliquis. (5) COPD (chronic obstructive pulmonary disease) Qualifiers: COPD type: unspecified COPD Qualified Code(s): J44.9 - Chronic obstructive pulmonary disease, unspecified Is this a current diagnosis for this admission?: Yes Plan: Clinically stable. I will only continue his routine outpatient medications (6) Diabetes Qualifiers: Diabetes mellitus type: type 2 Diabetes mellitus shelter insulin use: with intermediate project manager use Diabetes mellitus complication status: with diabetic arthropathy Diabetes mellitus complication detail: with other arthropathy Qualified Code(s): E11.618 - Type 2 diabetes mellitus with other diabetic arthropathy; Z79.4 - care home (current) use of insulin; Z79.4 - termite inspector ( current) use of insulin; Z79.4 - termite inspector (current) use of insulin; Z79.4 - care home (current) use of insulin Plan: Continue his routine medications plus sliding scale. (7) Sleep apnea Is this a current diagnosis for this admission?: Yes Plan: Effectively treated with the tracheostomy (8) Hepatitis C Qualifiers: Viral hepatitis chronicity: chronic Hepatic coma status: without hepatic coma Qualified Code(s): B18.2 - Chronic viral hepatitis C Is this a current diagnosis for this admission?: Yes Plan: Patient is hepatitis C positive. (9) Cough Is this a current diagnosis for this admission?: Yes Plan: The patient had a sudden onset of coughing this morning. He is concerned about exposure to the fumigating material used in the apartment next to his. At this point time I do not think that he has had any major exposure. His CT angiogram demonstrates clear lung kearney. He has no clinical signs or symptoms of pneumonia. I will not initiate antibiotics. - Time Time Spent: 50 to 70 Minutes - Inpatient Certification Medical Necessity: Significant Comorbidiites Make Outpatient Treatment Too Risky , Need Close Monitoring Due to Risk of Patient Decompensation, Risk of Diagnosis Which Will Require Inpatient Eval/Care/Monitoring - Plan Summary Plan Summary: The patient will be admitted to observation status while we monitor his signs and symptoms, adjust his blood pressure medications and check other studies to evaluate this tachycardia further. He will be ruled out for NC.
[2017-06-26] MEDS ORDERED: DEXTROSE 40% GEL 15 GM TUBE PO PRN ×2 (16:58)
[2017-06-26] MEDS ORDERED: GLUCAGON,HUMAN RECOMB 1 MG INJ IM PRN (16:58)
[2017-06-26] MEDS ORDERED: DEXTROSE 50%-WATER 25 GM/50 ML DISP.SYRIN IV PRN ×2 (16:58)
[2017-06-26 17:33] LABS: INTERNATIONAL RATION (INR) 0.94; PARTIAL THROMBOPLASTIN TIME 30.6 SEC (23.5-35.8); PROTHROMBIN TIME 13.2 SEC (11.4-15.4)
[2017-06-26] MEDS ORDERED: METOPROLOL TARTRATE 25 MG TABLET PO ONE (18:30)
[2017-06-26] MEDS: ATORVASTATIN CALCIUM 10 MG TABLET PO SCH (22:00)
[2017-06-26] MEDS: AMITRIPTYLINE HCL 25 MG TABLET PO SCH (22:15)
[2017-06-26] MEDS: APIXABAN 5 MG TABLET PO SCH (22:15)
[2017-06-26] MEDS: DOXAZOSIN MESYLATE 4 MG TABLET PO SCH (22:16)
[2017-06-26] MEDS: METOPROLOL TARTRATE 50 MG TABLET PO SCH (22:16)
[2017-06-26] MEDS: FAMOTIDINE 20 MG TABLET PO SCH (22:18)
[2017-06-26] MEDS: GABAPENTIN 100 MG CAPSULE PO SCH (22:18)
[2017-06-27] MEDS ORDERED: INSULIN GLARGINE,HUM.REC.ANLOG 300 UNIT/3 ML INSULN.PEN SUBCUT ONE (01:06)
[2017-06-27] MEDS ORDERED: BUDESONIDE/FORMOTEROL 160-4.5 MCG 60 PUFF/6 GM MDI IH ONE (01:12)
[2017-06-27] MEDS: INSULIN GLARGINE,HUM.REC.ANLOG 300 UNIT/3 ML INSULN.PEN SUBCUT SCH ×2 (02:01→23:19)
[2017-06-27] MEDS: BUDESONIDE/FORMOTEROL 160-4.5 MCG 60 PUFF/6 GM MDI IH SCH ×3 (02:02→21:25)
[2017-06-27 06:45] LABS: FREE T4 (FREE THYROXINE) 1.07 ng/dL (0.78-2.19)
[2017-06-27] MEDS: GABAPENTIN 100 MG CAPSULE PO SCH ×3 (06:46→21:27)
[2017-06-27 06:59] LABS: THYROID STIMULATING HORMONE 1.77 uIU/mL (0.47-4.68)
[2017-06-27] MEDS: INSULIN LISPRO 100 UNIT/ML 3 ML VIAL SUBCUT PRN ×4 (08:04→23:20)
[2017-06-27] MEDS: ISOSORBIDE MONONITRATE 30 MG TAB.ER.24H PO SCH (08:04)
--- NOTE | 2017-06-27 08:47 | EKG REPORT ---
SEVERITY:- BORDERLINE ECG - SINUS TACHYCARDIA BORDERLINE T WAVE ABNORMALITIES NO CHANGE : Confirmed by: Elias Arce MD 27-Jun-2017 08:46:46
[2017-06-27] MEDS: METOPROLOL TARTRATE 50 MG TABLET PO SCH ×2 (09:55→21:27)
[2017-06-27] MEDS: FERROUS SULFATE 325 MG TABLET PO SCH (09:58)
[2017-06-27] MEDS: FAMOTIDINE 20 MG TABLET PO SCH ×2 (09:58→21:27)
[2017-06-27] MEDS: ASPIRIN 81 MG TABLET, ENT COATED PO SCH (09:59)
[2017-06-27] MEDS: FUROSEMIDE 20 MG TABLET PO SCH (09:59)
[2017-06-27] MEDS: APIXABAN 5 MG TABLET PO SCH ×2 (09:59→21:27)
[2017-06-27] MEDS: LANSOPRAZOLE 30 MG TAB.RAP.DR PO SCH (09:59)
[2017-06-27] MEDS: ASCORBIC ACID 500 MG TABLET PO SCH (10:00)
[2017-06-27] MEDS: HYDROCHLOROTHIAZIDE 25 MG TABLET PO SCH (10:00)
[2017-06-27] MEDS: AMLODIPINE BESYLATE 10 MG TABLET PO SCH (10:00)
[2017-06-27] MEDS: IPRATROPIUM/ALBUTEROL 0.5-2.5 MG/3 ML AMPUL NEB PRN (11:15)
[2017-06-27] MEDS: FLUTICASONE NASAL SPRAY 50 MCG/SPRY 120 SPRAY/16 GM NASL SCH (12:14)
--- NOTE | 2017-06-27 13:26 | PDOC PROGRESS REPORT ---
Subjective Progress Note for:: 06/27/17 Subjective:: The patient had an uneventful night. He continues to cough. When he coughs he continues to have hemoptysis. Sputum and hemoptysis are described as light pink to occasional dark red clots. Again, he has been having hemoptysis since the tracheostomy was placed last month. Apparently, he is unaware of any tracheostomy changes. At approximately noon the nurse informed me that the patient had a run of nonsustained V. tach. He did complain of palpitations. EKG is normal. Additional troponins are scheduled. Reason For Visit: TACHYCARDIA, RULE OUT WI Physical Exam Vital Signs: Temp Pulse Resp BP Pulse Ox 98.4 F 94 18 99/65 L 97 06/27/17 11:50 06/27/17 11:50 06/27/17 11:15 06/27/17 11:50 06/27/17 11:50 Intake & Output 06/26/17 06/27/17 06/28/17 06:59 06:59 06:59 Intake Total 538 418 Output Total 1750 735 Balance -1212 -317 Weight 131 kg Additional comments: The patient was in no distress. His cognition and mentation are normal. His facial appearance is unremarkable. The trach site is clean, dry and intact. I did not have any sputum available to examine. His lungs are clear to auscultation bilaterally. His cardiac exam is regular, without murmurs, gallops or rubs. The abdomen is soft and flat. Bowel sounds are present lower quadrants. He does not have guarding or rebound noted and there are no hernias or masses. Lower extremities do not show any edema. Skin is warm, dry and intact without lesions or rashes. Results Laboratory Results: 06/27/17 04:59 TSH 1.77 Free T4 1.07 06/26/17 06/26/17 06/27/17 17:14 23:12 04:59 Troponin I < 0.012 < 0.012 < 0.012 Impressions: Chest/Abdomen CTA 06/26/17 11:46 IMPRESSION: No PE. No acute findings. Assessment & Plan - Diagnosis (1) Uncontrolled hypertension Is this a current diagnosis for this admission?: Yes Plan: Resolved. The patient told me that he recently got a new prescription of metoprolol. He thinks this may be a different generic brand. He does not recall missing any doses. (2) Chest pain Qualifiers: Chest pain type: unspecified Qualified Code(s): R07.9 - Chest pain, unspecified Is this a current diagnosis for this admission?: Yes Plan: This is still associated with his coughing. Certainly, he may have acute bronchitis. Going to order a sputum culture and initiate antibiotics. (3) Tachycardia Is this a current diagnosis for this admission?: Yes Plan: Sinus tach has now resolved. Again, I am suspicious of medication noncompliance. (4) Bleeding from trach due to coagulopathy Is this a current diagnosis for this admission?: Yes Plan: I will consult Dr. Humphries. (5) COPD (chronic obstructive pulmonary disease) Qualifiers: COPD type: unspecified COPD Qualified Code(s): J44.9 - Chronic obstructive pulmonary disease, unspecified Is this a current diagnosis for this admission?: Yes Plan: The bleeding could be from acute bronchitis and/or COPD with exacerbation. I will also add low-dose steroids. (6) Diabetes Qualifiers: Diabetes mellitus type: type 2 Diabetes mellitus terminal operations supervisor insulin use: with terminal operations supervisor use Diabetes mellitus complication status: with diabetic arthropathy Diabetes mellitus complication detail: with other arthropathy Qualified Code(s): E11.618 - Type 2 diabetes mellitus with other diabetic arthropathy; Z79.4 - [facility] (current) use of insulin; Z79.4 - [facility] ( current) use of insulin; Z79.4 - [facility] [employer] (current) use of insulin; Z79.4 - [facility] (current) use of insulin Plan: Continue his routine medications plus sliding scale. (7) Sleep apnea Is this a current diagnosis for this admission?: Yes Plan: Effectively treated with the tracheostomy (8) Hepatitis C Qualifiers: Viral hepatitis chronicity: chronic Hepatic coma status: without hepatic coma Qualified Code(s): B18.2 - Chronic viral hepatitis C Is this a current diagnosis for this admission?: Yes Plan: Patient is hepatitis C positive. (9) Cough Is this a current diagnosis for this admission?: Yes Plan: Possibly due to irritation from the tracheostomy versus acute bronchitis in the setting of COPD. Will initiate antibiotics and steroids. I will also consult Dr. Humphries who is following the patient during his last hospitalization. He may require bronchoscopy or other endoscopy per ENT to evaluate the tracheostomy site. (10) Ventricular tachycardia Is this a current diagnosis for this admission?: Yes Plan: Nonsustained ventricular tachycardia. Will order additional troponins. Magnesium potassium were okay this morning. Will ensure patient has had a recent echocardiogram done. - Time Time Spent with patient: 25-34 minutes - Inpatient Certification Medical Necessity: Need For Continuous Telemetry Monitoring, Risk of Complication if Not Cared For in Hospital
[2017-06-27 13:42] LABS: CREATINE KINASE MB 1.17 ng/mL (<4.55)
[2017-06-27 13:45] LABS: TROPONIN I < 0.012 ng/mL
[2017-06-27 14:26] LABS: ANION GAP 9 (5-19); BLOOD UREA NITROGEN 8 mg/dL (7-20); CALCIUM 8.9 mg/dL (8.4-10.2); CARBON DIOXIDE 27 mmol/L (22-30); CHLORIDE 101 mmol/L (98-107); GLUCOSE 219 mg/dL (75-110); POTASSIUM 4.2 mmol/L (3.6-5.0); SODIUM 136.7 mmol/L (137-145)
[2017-06-27] MEDS ORDERED: CEFPODOXIME 200 MG TABLET PO ONE (14:30)
[2017-06-27] MEDS ORDERED: PREDNISONE 20 MG TABLET PO ONE (14:30)
--- NOTE | 2017-06-27 15:22 | EKG REPORT ---
SEVERITY:- ABNORMAL ECG - SINUS RHYTHM PROBABLE LEFT ATRIAL ABNORMALITY NONSPECIFIC T ABNORMALITIES, ANT-LAT LEADS (BIPHASIC T WAVES IN ANTERIOR LEADS VS 05/30/17 EKG). QTC IS NOT PROLONGED. : Confirmed by: Elias Arce MD 27-Jun-2017 15:22:12
[2017-06-27] MEDS: MAGNESIUM SULFATE/D5W 1 GM/100 ML RTUPB IV SCH ×2 (16:29→18:51)
[2017-06-27] MEDS: MAGNESIUM OXIDE 400 MG TABLET PO SCH (16:42)
[2017-06-27 19:21] LABS: CREATINE KINASE MB 1.23 ng/mL (<4.55)
[2017-06-27 19:33] LABS: TROPONIN I < 0.012 ng/mL
[2017-06-27] MEDS: ATORVASTATIN CALCIUM 10 MG TABLET PO SCH (21:26)
[2017-06-27] MEDS: AMITRIPTYLINE HCL 25 MG TABLET PO SCH (21:28)
[2017-06-27] MEDS: DOXAZOSIN MESYLATE 4 MG TABLET PO SCH (21:29)
[2017-06-27] MEDS: CEFPODOXIME 200 MG TABLET PO SCH (22:00)
[2017-06-27] MEDS: TRAMADOL HCL 50 MG TABLET PO PRN (23:25)
[2017-06-28 01:40] LABS: CREATINE KINASE MB 0.84 ng/mL (<4.55)
[2017-06-28 01:46] LABS: TROPONIN I < 0.012 ng/mL
[2017-06-28] MEDS: TRAMADOL HCL 50 MG TABLET PO PRN (05:34)
[2017-06-28] MEDS: GABAPENTIN 100 MG CAPSULE PO SCH ×2 (05:35→13:10)
[2017-06-28] MEDS: ISOSORBIDE MONONITRATE 30 MG TAB.ER.24H PO SCH (08:27)
[2017-06-28] MEDS: METOPROLOL TARTRATE 50 MG TABLET PO SCH (08:27)
[2017-06-28] MEDS: FAMOTIDINE 20 MG TABLET PO SCH (09:20)
[2017-06-28] MEDS: MAGNESIUM OXIDE 400 MG TABLET PO SCH ×2 (09:20→17:22)
[2017-06-28] MEDS: ASCORBIC ACID 500 MG TABLET PO SCH (09:20)
[2017-06-28] MEDS: AMLODIPINE BESYLATE 10 MG TABLET PO SCH (09:21)
[2017-06-28] MEDS: HYDROCHLOROTHIAZIDE 25 MG TABLET PO SCH (09:21)
[2017-06-28] MEDS: FUROSEMIDE 20 MG TABLET PO SCH (09:22)
[2017-06-28] MEDS: APIXABAN 5 MG TABLET PO SCH (09:22)
[2017-06-28] MEDS: LANSOPRAZOLE 30 MG TAB.RAP.DR PO SCH (09:22)
[2017-06-28] MEDS: ASPIRIN 81 MG TABLET, ENT COATED PO SCH (09:23)
[2017-06-28] MEDS: FERROUS SULFATE 325 MG TABLET PO SCH (09:23)
[2017-06-28] MEDS: CEFPODOXIME 200 MG TABLET PO SCH (09:25)
[2017-06-28] MEDS: FLUTICASONE NASAL SPRAY 50 MCG/SPRY 120 SPRAY/16 GM NASL SCH (09:25)
[2017-06-28] MEDS: BUDESONIDE/FORMOTEROL 160-4.5 MCG 60 PUFF/6 GM MDI IH SCH (09:26)
[2017-06-28] MEDS: INSULIN LISPRO 100 UNIT/ML 3 ML VIAL SUBCUT PRN ×2 (09:43→13:10)
[2017-06-28] MEDS: IPRATROPIUM/ALBUTEROL 0.5-2.5 MG/3 ML AMPUL NEB PRN (09:45)
[2017-06-28] MEDS ORDERED: PREDNISONE 20 MG TABLET PO SCH (10:00)
--- NOTE | 2017-06-28 17:05 | PDOC DISCHARGE SUMMARY ---
General - Admit/Disc Date/PCP Admission Date/Primary Care Provider: 06/26/17 15:38 FRANCES OSUNA MD Discharge Date: 06/28/17 - Discharge Diagnosis (1) Uncontrolled hypertension Is this a current diagnosis for this admission?: Yes (2) Chest pain Is this a current diagnosis for this admission?: Yes (3) Tachycardia Is this a current diagnosis for this admission?: Yes (4) Bleeding from trach due to coagulopathy Is this a current diagnosis for this admission?: Yes (5) COPD (chronic obstructive pulmonary disease) Is this a current diagnosis for this admission?: Yes (7) Sleep apnea Is this a current diagnosis for this admission?: Yes (8) Hepatitis C Is this a current diagnosis for this admission?: Yes (9) Cough Is this a current diagnosis for this admission?: Yes (10) Ventricular tachycardia Is this a current diagnosis for this admission?: Yes - Additional Information Resuscitation Status: Full Code Discharge Diet: Cardiac, Diabetic Discharge Activity: Balance Activity w/Rest Prescriptions: Cefpodoxime Proxetil 200 mg PO BID 7 Days #14 tablet Magnesium Oxide [Mag-Ox 400 mg Tablet] 400 mg PO BID 7 Days #14 tablet Metoprolol Tartrate [Lopressor 50 mg Tablet] 25 mg PO TID 30 Days #90 tablet Prednisone [Deltasone 20 mg Tablet] 40 mg PO DAILY 7 Days #7 tablet Home Medications: Albuterol Sulfate [Proair HFA Inhalation Aerosol 8.5 gm MDI] 2 puff IH Q6HP PRN 05/19/17 Amitriptyline HCl [Elavil 25 mg Tablet] 75 mg PO QHS 05/19/17 Amlodipine Besylate [Norvasc 10 mg Tablet] 10 mg PO DAILY 05/19/17 Apixaban [Eliquis 5 mg Tablet] 5 mg PO Q12 05/19/17 Ascorbic Acid [Vitamin C 500 mg Tablet] 500 mg PO DAILY 05/19/17 Aspirin [Ecotrin 81 mg EC Tablet] 81 mg PO DAILY 05/19/17 Budesonide/Formoterol Fumarate [Symbicort 160-4.5 Mcg Inhaler] 2 puff IH Q12 10/27 Dextrose [Glucose] 1 tab PO QIDP PRN 05/19/17 Epinephrine [Epipen] 3 ml IM ONCEP PRN 05/19/17 Ferrous Sulfate 324 mg PO DAILY 05/19/17 Fluticasone Propionate [Flonase Nasal [place] 50 Mcg/[place] 16 gm] 1 spray NASL DAILY 05/19/17 Furosemide [Lasix 20 mg Tablet] 20 mg PO DAILY 05/19/17 Gabapentin [Neurontin 100 mg Capsule] 100 mg PO Q8 05/19/17 Hydrochlorothiazide [Hydrodiuril 25 mg Tablet] 25 mg PO DAILY 05/19/17 Insulin Glargine,Hum.rec.anlog [Lantus Solostar] 60 unit SQ QHS 05/19/17 Isosorbide Mononitrate [Isosorbide Mononitrate ER] 30 mg PO QAM 05/19/17 Metformin HCl [Glucophage] 1,000 mg PO BIDACBS 05/19/17 Omeprazole 40 mg PO DAILY 05/19/17 Pravastatin Sodium [Pravachol] 20 mg PO QHS 05/19/17 Ranitidine HCl [Zantac 150 mg Tablet] 150 mg PO QHS 05/19/17 Sildenafil Citrate [Viagra] 100 mg PO DAILYP PRN 05/19/17 Terazosin HCl [Hytrin] 4 mg PO QHS 05/19/17 Tiotropium [place] [Spiriva Handihaler 5 Cap/Kit (18 Mcg/Cap)] 1 puff IH DAILY 05/19/17 Tramadol HCl [Ultram 50 mg Tablet] 50 mg PO Q6 PRN 05/19/17 Insulin Aspart [Novolog Flexpen] 22 unit SQ ASDIR 06/26/17 Insulin Aspart [Novolog Flexpen] 22 unit SUBCUT ACBRKFST 06/26/17 Insulin Aspart [Novolog Flexpen] 30 unit SUBCUT ACSUPPER 06/26/17 Cefpodoxime Proxetil 200 mg PO BID 7 Days #14 tablet 06/28/17 Magnesium Oxide [Mag-Ox 400 mg Tablet] 400 mg PO BID 7 Days #14 tablet 06/28/17 Metoprolol Tartrate [Lopressor 50 mg Tablet] 25 mg PO TID 30 Days #90 tablet Prednisone [Deltasone 20 mg Tablet] 40 mg PO DAILY 7 Days #7 tablet 06/28/17 History of Present Illness History of Present Illness: SHANAE TSANG JR is a 61 year old male who was last admitted from 05/19/2017 until 06/04/2017. During that admission the patient underwent an emergent tracheostomy for airway occlusion secondary to angioedema. General surgery performed the procedure well the patient was in the emergency department. He presented with recurrent angioedema. Attempts at intubation were unsuccessful and the patient underwent tracheostomy. Since the patient's tracheostomy he has not had any recurrent bouts of angioedema that he is aware of. He actually attributed his last presentation to using cocaine which he used for his birthday. However, he was supposed to keep an appointment at [facility] for further evaluation. In any event, this morning the patient woke up at 06 100. His blood pressure was 143/95 and his heart rate was 126. He ate breakfast and had some juice. He took his metformin, iron, Eliquis and metoprolol. He then went back to bed. He woke up at 9:00 and started coughing. He was coughing significantly. He felt that his trach was occluded. He coughed out a small blood clot. His was notified that they are fumigating the apartment next to his in the same building. Therefore, the patient felt that he needed to get out of that situation. Since he started coughing at 9:00 this morning he has been having this dull pain over the sternum. It starts in the right anterior chest progresses and crosses the midline to the left anterior chest and then radiates to the left armpit. The patient took 2 low-dose baby aspirin with good resolution of pain. The pain comes back but at a lesser intensity with coughing. The patient has not had any fevers, chills or sweats but he does at times feel cold. He has not had any nausea vomiting or diarrhea. He states that he has been coughing up blood since the tracheostomy was placed in early May. On review of systems his only other complaint is that he has been having swelling in his legs. His PCM sent him to the emergency department a couple of days ago for Dopplers to rule out lower extremity DVT. Apparently, per him this was negative. The only other pertinent positive on review of systems is that he has sciatic pain in the left leg. Hospital Course Hospital Course: The patient was admitted to observation status secondary to hypertension and tachycardia. The patient's tachycardia goes back many years. He is currently followed by a news copy editor for this indication. He states that he has had issues with tachycardia since he became addicted to crack cocaine. Please note that he has not used cocaine anytime in the recent past. In any event, the patient has continued to have mild tachycardia. During this hospitalization I increased his metoprolol from 25 twice daily to 25 3 times daily. During this hospitalization the patient has been complaining of atypical chest pain. He has a productive cough. He is coughing up some scant hemoptysis. I attribute this to acute bronchitis, and/or trauma from the recent tracheostomy. In addition, the patient is fully anticoagulated. The hemoptysis is extremely mild. We have continued his anticoagulation. He is receiving therapy with prednisone and Vantin. The patient was seen by Dr. Humphries during this hospitalization secondary to the hemoptysis. By verbal report I was told that Dr. Humphries feels that the patient is stable for discharge and can follow up with him after discharge. He may require endoscopy to survey his tracheostomy site. In regards to the patient's angioedema he is going to keep his follow-up appointment with allergy to look for any precipitating antigens. The patient was being prepared for discharge yesterday, however, he did have one episode of nonsustained ventricular tachycardia. Therefore, he was kept in the hospital for 1 day. Cardiac enzymes were unremarkable. The patient had an echocardiogram last month and therefore no additional testing was ordered. He is now stable for discharge. Physical Exam Vital Signs: Temp Pulse Resp BP Pulse Ox 98.6 F 111 H 15 126/72 H 93 06/28/17 15:50 06/28/17 15:50 06/28/17 15:50 06/28/17 15:50 06/28/17 15:50 Intake & Output 06/27/17 06/28/17 06/29/17 06:59 06:59 06:59 Intake Total 538 1288 487 Output Total 1750 0956 500 Balance -1212 -1597 -13 Weight 131 kg 129.2 kg Additional comments: The patient is a very delightful black male who is not in any distress. His facial appearance is normal with the exception of the tracheostomy. The tracheostomy site is clean dry and intact. The patient did show me the inner cannula today. It is not occluded. He has minimal buildup. He has a tiny amount of dried blood that he coughed up earlier today. His lungs are clear to auscultation bilaterally. His cardiac exam is regular without murmurs, gallops or rubs. The abdomen is obese but soft. Bowel sounds are present in all 4 quadrants. He does not have guarding or rebound noted and there are no hernias or masses present. The lower extremities demonstrate trace nonpitting edema. The skin is warm dry and intact without lesions or rashes. Results Laboratory Results: 06/27/17 12:50 06/26/17 06/26/17 06/27/17 17:14 23:12 04:59 Creatine Kinase CK-MB (CK-2) Troponin I < 0.012 < 0.012 < 0.012 06/27/17 06/27/17 06/27/17 12:50 12:50 18:26 Creatine Kinase 131 140 CK-MB (CK-2) 1.17 Troponin I < 0.012 06/27/17 06/28/17 06/28/17 18:26 00:40 00:40 Creatine Kinase 135 CK-MB (CK-2) 1.23 0.84 Troponin I < 0.012 < 0.012 Impressions: Chest/Abdomen CTA 06/26/17 11:46 IMPRESSION: No PE. No acute findings. Qualifiers - * PATEINT BEING DISCHARGED WITH ANY OF THE FOLLOWING DIAGNOSIS?: No Plan Discharge Plan: Discharge to home; diabetic/cardiac diet; follow-up with pulmonary, cardiology and hepatology. Resume home health orders. Time Spent: Less than 30 Minutes
[2017-06-28 17:16] VITALS: BP 151/91
[2017-06-28] MEDS ORDERED: INFLUENZA ADLT QUAD (36MOS+) 2017-18 VAC 0.5 ML SYR IM PRN (17:31)
--- NOTE | 2017-06-28 22:37 | PDOC CONSULTATION ---
Consultation Consult Date: 06/28/17 Attending physician:: SOBIA WARREN Consult reason:: hemoptysis History of Present Illness Admission Date/PCP: 06/26/17 15:38 FRANCES OSUNA MD History of Present Illness: SHANAE TSANG JR is a 61 year old male who was last admitted from 05/19/2017 until 06/04/2017. During that admission the patient underwent an emergent tracheostomy for airway occlusion secondary to angioedema. General surgery performed the procedure well the patient was in the emergency department. He presented with recurrent angioedema. Attempts at intubation were unsuccessful and the patient underwent tracheostomy. He presented due to coughing up clots and blood through his trachea ;he demostrated samples dried clots were in napkin .It is also of noted patient takes anticoagulant.He denies SOB,AMBROSIO nausea ,vomiting,fever or chills. Past Medical History Cardiac Medical History: Reports: Atrial Fibrillation, Congestive Heart Failure , Hyperlipidema, Hypertension, Pulmonary Embolism Denies: Coronary Artery Disease, Myocardial Infarction, Peripheral Vascular Disease, Heart Murmur Pulmonary Medical History: Reports: Asthma, Chronic Obstructive Pulmonary Disease (COPD), Pneumonia - 7 years ago, Sleep Apnea - hx only, not a current problem, no CPAP, Tuberculosis Denies: Bronchitis, Respiratory Failure Neurological Medical History: Denies: Migraine Endocrine Medical History: Reports: Diabetes Mellitus Type 2 Denies: Hyperthyroidism, Hypothyroidism Renal/ Medical History: Denies: End Stage Renal Disease Malignancy Medical History: Denies: Lung Cancer GI Medical History: Reports: Gastroesophageal Reflux Disease, Hepatitis - Hep C Denies: Cirrhosis, Crohn's Disease, Hiatal Hernia, Ulcerative Colitis Musculoskeltal Medical History: Reports: Arthritis Denies: Fibromyalgia Skin Medical History: Denies: Psoriasis Psychiatric Medical History: Denies: Bipolar Disorder, Dementia, Depression, Post Traumatic Stress Disorder Traumatic Medical History: Denies: Traumatic Brain Injury Hematology: Denies: Sickle Cell Disease, Bleeding Tendencies Past Surgical History Past Surgical History: Reports: Appendectomy, Herniorrhaphy, Orthopedic Surgery - Spinal fusion. Meniscus repair., Other - Tracheostomy on 05/19/2017 Denies: Cholecystectomy, Colostomy, Coronary Artery Bypass Graft, Gastric Bypass Surgery, Pacemaker, Tonsillectomy Social History Information Source: Patient, Relative, [facility] Records Smoking Status: Former Smoker Frequency of Alcohol Use: Occasional Hx Recreational Drug Use: Yes - Last used dry cocaine 3 months ago Drugs: Cocaine Hx Prescription Drug Abuse: No - Advance Directive Resuscitation Status: Full Code Family History Family History: Arthritis, CAD - Mother and brother, CVA, DM, Hyperlipidemia, Hypertension, Malignancy Parental Family History Reviewed: Yes Children Family History Reviewed: Yes Sibling(s) Family History Reviewed.: Yes Medication/Allergy Home Medications: Albuterol Sulfate [Proair HFA Inhalation Aerosol 8.5 gm MDI] 2 puff IH Q6HP PRN 05/19/17 Amitriptyline HCl [Elavil 25 mg Tablet] 75 mg PO QHS 05/19/17 Amlodipine Besylate [Norvasc 10 mg Tablet] 10 mg PO DAILY 05/19/17 Apixaban [Eliquis 5 mg Tablet] 5 mg PO Q12 05/19/17 Ascorbic Acid [Vitamin C 500 mg Tablet] 500 mg PO DAILY 05/19/17 Aspirin [Ecotrin 81 mg EC Tablet] 81 mg PO DAILY 05/19/17 Budesonide/Formoterol Fumarate [Symbicort 160-4.5 Mcg Inhaler] 2 puff IH Q12 10/27 Dextrose [Glucose] 1 tab PO QIDP PRN 05/19/17 Epinephrine [Epipen] 3 ml IM ONCEP PRN 05/19/17 Ferrous Sulfate 324 mg PO DAILY 05/19/17 Fluticasone Propionate [Flonase Nasal [place] 50 Mcg/[place] 16 gm] 1 spray NASL DAILY 05/19/17 Furosemide [Lasix 20 mg Tablet] 20 mg PO DAILY 05/19/17 Gabapentin [Neurontin 100 mg Capsule] 100 mg PO Q8 05/19/17 Hydrochlorothiazide [Hydrodiuril 25 mg Tablet] 25 mg PO DAILY 05/19/17 Insulin Glargine,Hum.rec.anlog [Lantus Solostar] 60 unit SQ QHS 05/19/17 Isosorbide Mononitrate [Isosorbide Mononitrate ER] 30 mg PO QAM 05/19/17 Metformin HCl [Glucophage] 1,000 mg PO BIDACBS 05/19/17 Omeprazole 40 mg PO DAILY 05/19/17 Pravastatin Sodium [Pravachol] 20 mg PO QHS 05/19/17 Ranitidine HCl [Zantac 150 mg Tablet] 150 mg PO QHS 05/19/17 Sildenafil Citrate [Viagra] 100 mg PO DAILYP PRN 05/19/17 Terazosin HCl [Hytrin] 4 mg PO QHS 05/19/17 Tiotropium [place] [Spiriva Handihaler 5 Cap/Kit (18 Mcg/Cap)] 1 puff IH DAILY 05/19/17 Tramadol HCl [Ultram 50 mg Tablet] 50 mg PO Q6 PRN 05/19/17 Insulin Aspart [Novolog Flexpen] 22 unit SQ ASDIR 06/26/17 Insulin Aspart [Novolog Flexpen] 22 unit SUBCUT ACBRKFST 06/26/17 Insulin Aspart [Novolog Flexpen] 30 unit SUBCUT ACSUPPER 06/26/17 Cefpodoxime Proxetil 200 mg PO BID 7 Days #14 tablet 06/28/17 Magnesium Oxide [Mag-Ox 400 mg Tablet] 400 mg PO BID 7 Days #14 tablet 06/28/17 Metoprolol Tartrate [Lopressor 50 mg Tablet] 25 mg PO TID 30 Days #90 tablet Prednisone [Deltasone 20 mg Tablet] 40 mg PO DAILY 7 Days #7 tablet 06/28/17 Allergies/Adverse Reactions: codeine [Codeine] Allergy (Severe, Verified 06/26/17 12:49) Facial swelling hydrocodone bitartrate [From Vicodin] Allergy (Severe, Verified 06/26/17 12:49) Anaphylaxis lisinopril Allergy (Severe, Verified 06/26/17 12:49) Anaphylaxis hydromorphone [From Dilaudid] Allergy (Verified 06/26/17 12:49) Difficulty breathing Iodine and Iodide Containing Produc Allergy (Verified 06/26/17 12:49) Anaphylaxis morphine Allergy (Verified 06/26/17 12:49) Itching oxycodone Allergy (Verified 06/26/17 12:49) Swelling of tongue shellfish derived Allergy (Verified 06/26/17 12:49) Anaphylaxis Review of Systems Constitutional: ABSENT: anorexia, chills, fever(s), headache(s), night sweats Eyes: ABSENT: visual disturbances Ears: ABSENT: hearing changes Nose, Mouth, and Throat: ABSENT: mouth pain, sore throat Cardiovascular: ABSENT: orthropnea, palpitations Respiratory: PRESENT: hemoptysis, sputum. ABSENT: dyspnea Gastrointestinal: ABSENT: abdominal pain, bloating, coffee ground emesis, diarrhea, dysphagia, heartburn, hematemesis, melena, nausea Genitourinary: ABSENT: dysuria, hematuria Musculoskeletal: ABSENT: joint swelling, muscle weakness Integumentary: ABSENT: pruritus, rash Neurological: ABSENT: abnormal gait, abnormal movements, abnormal speech, focal weakness, frequent falls, lack of coordination, memory loss Psychiatric: ABSENT: hallucinations, homidical ideation, suicidal ideation Endocrine: ABSENT: cold intolerance, heat intolerance, polydipsia, polyuria Hematologic/Lymphatic: ABSENT: easy bruising Physical Exam Vital Signs: Temp Pulse Resp BP Pulse Ox 98.6 F 111 H 15 151/91 H 93 06/28/17 17:14 06/28/17 17:14 06/28/17 17:14 06/28/17 17:14 06/28/17 17:14 Intake & Output 06/27/17 06/28/17 06/29/17 06:59 06:59 06:59 Intake Total 538 1288 487 Output Total 1750 2885 500 [facility] -1212 -1597 -13 Weight 131 kg 129.2 kg General appearance: PRESENT: no acute distress, cooperative, disheveled, morbidly obese Head exam: PRESENT: atraumatic, normocephalic Eye exam: PRESENT: conjunctiva pale, EOMI. ABSENT: nystagmus, periorbital swelling, scleral icterus Mouth exam: PRESENT: moist, neck supple, tongue midline Neck exam: PRESENT: tracheostomy - tube in place no.bleeding.clots, thrill or pulsations. ABSENT: carotid bruit, JVD, lymphadenopathy, thyromegaly, tracheal deviation Respiratory exam: PRESENT: decreased breath sounds, prolonged expiratory phas, rhonchi, symmetrical, unlabored, wheezes. ABSENT: rales, retraction, stridor, tachypnea Cardiovascular exam: PRESENT: RRR, +S1, +S2 Pulses: PRESENT: normal radial pulses GI/Abdominal exam: PRESENT: diminished bowel sounds, soft Extremities exam: ABSENT: calf tenderness, clubbing, joint swelling Musculoskeletal exam: PRESENT: ambulatory. ABSENT: deformity, dislocation Neurological exam: PRESENT: alert, awake Psychiatric exam: PRESENT: normal mood Skin exam: PRESENT: dry, warm Results Laboratory Results: 06/27/17 12:50 06/26/17 06/26/17 06/27/17 17:14 23:12 04:59 Creatine Kinase CK-MB (CK-2) Troponin I < 0.012 < 0.012 < 0.012 06/27/17 06/27/17 06/27/17 12:50 12:50 18:26 Creatine Kinase 131 140 CK-MB (CK-2) 1.17 Troponin I < 0.012 06/27/17 06/28/17 06/28/17 18:26 00:40 00:40 Creatine Kinase 135 CK-MB (CK-2) 1.23 0.84 Troponin I < 0.012 < 0.012 Impressions: Chest/Abdomen CTA 06/26/17 11:46 IMPRESSION: No PE. No acute findings. Assessment & Plan - Diagnosis (1) Atrial fibrillation Qualifiers: Atrial fibrillation type: chronic Qualified Code(s): I48.2 - Chronic atrial fibrillation Is this a current diagnosis for this admission?: Yes Plan: stable ventricular response (2) Bleeding from trach due to coagulopathy Is this a current diagnosis for this admission?: Yes Plan: anti coagulated consider ENT evaluation prn (3) COPD (chronic obstructive pulmonary disease) Qualifiers: COPD type: unspecified COPD Qualified Code(s): J44.9 - Chronic obstructive pulmonary disease, unspecified Is this a current diagnosis for this admission?: Yes Plan: Discontinued Medications Generic Name Dose Route Start Last Admin Trade Name Freq PRN Reason Stop Dose Admin Albuterol/Ipratropium 3 ml 06/26/17 16:49 06/28/17 09:45 Duoneb 3 Ml Ampul NEB 07/26/17 16:48 3 ml [id number] PRN SHORTNESS OF BREATH Budesonide/Formoterol Fumarate 2 puff 06/26/17 22:00 06/28/17 09:26 Symbicort Hfa 160-4.5 Mcg Inhaler 6 Gm IH 07/26/17 21:59 2 puff Q12 KENDAL Prednisone 40 mg 06/28/17 10:00 06/28/17 09:19 Deltasone 20 Mg Tablet PO 07/28/17 09:59 40 mg DAILY KENDAL
== END 2017-06-28 17:55 | disposition home health service (06) ==
LOC: ER 11:16 → EH 15:38 → 3N 18:04
PROVIDERS: ADMIT Family Medicine; ATTEND Family Medicine
PROC: 3E0234Z Introduction of Serum, Toxoid and Vaccine into Muscle, Percutaneous Approach (ICD-10-PCS; principal; 2017-06-28)
DX: I10 Essential (primary) hypertension (principal); R07.9 Chest pain, unspecified; J44.9 Chronic obstructive pulmonary disease, unspecified; G47.30 Sleep apnea, unspecified; B18.2 Chronic viral hepatitis C; R05 Cough; I47.2 Ventricular tachycardia; M54.32 Sciatica, left side; R60.0 Localized edema; E11.618 Type 2 diabetes mellitus with other diabetic arthropathy; I48.2 Chronic atrial fibrillation; D68.8 Other specified coagulation defects; J95.01 Hemorrhage from tracheostomy stoma; Y83.8 Other surgical procedures as the cause of abnormal reaction of the patient, or of later complication, without mention of misadventure at the time of the procedure; Z79.899 Other long term (current) drug therapy; Z79.82 Long term (current) use of aspirin; Z86.711 Personal history of pulmonary embolism; Z82.49 Family history of ischemic heart disease and other diseases of the circulatory system; Z79.4 Long term (current) use of insulin; Z87.891 Personal history of nicotine dependence; Z90.49 Acquired absence of other specified parts of digestive tract; Z86.718 Personal history of other venous thrombosis and embolism; Z87.01 Personal history of pneumonia (recurrent); Z23 Encounter for immunization
CPT/HCPCS: 93005 ×2; 99285; 96360; 36415 ×3; 84439; 82553 ×2; 82962 ×3; 82550 ×2; 83735; 84443; 85025; 85610; 85730; 80048; 80053; 84484 ×3; 80307; 71275; 90686; 93010 ×2; 94640 ×2; J3490 ×6; J1815 ×3; J3475; J7512 ×2; J7030; J7620 ×2

== ENCOUNTER 2017-07-07 19:12 | Emergency (ER) | payer OTHER ==
--- NOTE | 2017-07-07 19:53 | ER Document Report ---
ED Medical Screen (RME) - General Chief Complaint: Breathing Difficulty Stated Complaint: DIFFICULTY BREATHING Time Seen by Provider: 07/07/17 19:49 Notes: Patient is a 61-year-old male complains of increased difficulty breathing today. Patient has a new tracheostomy that was placed in May of this year secondary to anaphylaxis/angioedema. reports increased cough today also reports difficult to change his cannula today. She felt that there was resistance at the end of the cannula. When she removed it she saw some bright red blood. Patient denies any fever. Sat 94% I have greeted and performed a rapid initial assessment of this patient. A comprehensive ED assessment and evaluation of the patient, analysis of test results and completion of the medical decision making process will be conducted by additional ED providers. TRAVEL OUTSIDE OF THE [place] IN LAST 30 DAYS: No - Related Data Allergies/Adverse Reactions: codeine [Codeine] Allergy (Severe, Verified 06/26/17 12:49) Facial swelling hydrocodone bitartrate [From Vicodin] Allergy (Severe, Verified 06/26/17 12:49) Anaphylaxis lisinopril Allergy (Severe, Verified 06/26/17 12:49) Anaphylaxis hydromorphone [From Dilaudid] Allergy (Verified 06/26/17 12:49) Difficulty breathing Iodine and Iodide Containing Produc Allergy (Verified 06/26/17 12:49) Anaphylaxis morphine Allergy (Verified 06/26/17 12:49) Itching oxycodone Allergy (Verified 06/26/17 12:49) Swelling of tongue shellfish derived Allergy (Verified 06/26/17 12:49) Anaphylaxis Past Medical History - Social History Chew tobacco use (# tins/day): No Frequency of alcohol use: Occasional Drug Abuse: None - Past Medical History Cardiac Medical History: Reports: Hx Atrial Fibrillation, Hx Congestive Heart Failure, Hx Hypercholesterolemia, Hx Hypertension, Hx Pulmonary Embolism Denies: Hx Coronary Artery Disease, Hx Heart Attack, Hx Peripheral Vascular Disease, Hx Heart Murmur Pulmonary Medical History: Reports: Hx Asthma, Hx COPD, Hx Pneumonia - 7 years ago, Hx Sleep Apnea - hx only, not a current problem, no CPAP, Hx Tuberculosis Denies: Hx Bronchitis, Hx Respiratory Failure Neurological Medical History: Reports: Hx Cerebrovascular Accident. Denies: Hx Migraine Endocrine Medical History: Reports: Hx Diabetes Mellitus Type 2. Denies: Hx Graves' Disease, Hx Hyperthyroidism, Hx Hypothyroidism Renal/ Medical History: Reports: Hx Kidney Stones - 1981. Denies: Hx Benign Prostatic Hyperplasia, Hx End Stage Renal Disease, Hx Peritoneal Dialysis Malignancy Medical History: Denies Hx Lung Cancer GI Medical History: Reports: Hx Gastroesophageal Reflux Disease, Hx Hepatitis - Hep C, Hx Pancreatitis - 1988, Hx Ulcer. Denies: Hx Cirrhosis, Hx Crohn's Disease, Hx Hiatal Hernia, Hx Irritable Bowel, Hx Liver Failure, Hx Ulcerative Colitis Musculoskeltal Medical History: Reports Hx Arthritis, Denies Hx Fibromyalgia, Denies Hx Multiple Sclerosis, Denies Hx Muscular Dystrophy, Reports Hx Musculoskeletal Deformity, Reports Hx Musculoskeletal Trauma Skin Medical History: Denies Hx Psoriasis Psychiatric Medical History: Denies: Hx Bipolar Disorder, Hx Dementia, Hx Depression, Hx Post Traumatic Stress Disorder, Hx Schizophrenia Traumatic Medical History: Reports: Hx Fractures, Hx Spine Fracture. Denies: Hx Traumatic Brain Injury Infectious Medical History: Reports: Hx Hepatitis - Hep C Past Surgical History: Reports: Hx Abdominal Surgery - Hernia repair, bowel resection, Hx Appendectomy, Hx Bowel Surgery - bowel resection 1988, Hx Herniorrhaphy, Hx Oral Surgery, Hx Orthopedic Surgery - Spinal fusion. Meniscus repair., Other - Tracheostomy on 05/19/2017. Denies: Hx Cholecystectomy, Hx Colostomy, Hx Coronary Artery Bypass Graft, Hx Gastric Bypass Surgery, Hx Pacemaker, Hx Tonsillectomy - Immunizations Immunizations up to date: Yes Hx Diphtheria, Pertussis, Tetanus Vaccination: Yes History of Influenza Vaccine for 01/2017 - 06/2017 Season: Refused Physical Exam - Vital signs Vitals: Temp Pulse Resp BP Pulse Ox 98.5 F 96 16 123/81 93 07/07/17 19:20 07/07/17 19:20 07/07/17 19:20 07/07/17 19:20 07/07/17 19:20 Course - Vital Signs Vital signs: Temp Pulse Resp BP Pulse Ox 98.5 F 96 16 123/81 93 07/07/17 19:20 07/07/17 19:20 07/07/17 19:20 07/07/17 19:20 07/07/17 19:20
--- NOTE | 2017-07-07 20:50 | RADIOLOGY REPORT (SQ) ---
EXAM DESCRIPTION: SOFT TISSUE NECK COMPLETED DATE/TIME: 07/07/2017 8:17 pm REASON FOR STUDY: difficulty breathing, new trach COMPARISON: 12/16/2014 NUMBER OF VIEWS: Two views. TECHNIQUE: AP and lateral radiographic image of the soft tissues of the neck. LIMITATIONS: None. FINDINGS: EPIGLOTTIS: Normal. Contour normal. Aryepiglottic folds normal. PREVERTEBRAL SOFT TISSUES: There is mild prevertebral soft tissue swelling. SUBGLOTTIC AREA: Normal. No narrowing. RETROPHARYNGEAL SPACE: Normal. No soft tissue masses. BONES: Degenerative disc disease and spondylosis are present. LUNG APICES: Normal. OTHER: A tracheostomy tube is present. IMPRESSION: Tracheostomy tube is present. There is mild prevertebral soft tissue swelling that appe ars to be chronic. TECHNICAL DOCUMENTATION: JOB ID: [id number] [employer]- All Rights Reserved Reading location - IP/workstation name: [email or web address]
--- NOTE | 2017-07-07 20:56 | RADIOLOGY REPORT (SQ) ---
EXAM DESCRIPTION: CHEST PA/LAT COMPLETED DATE/TIME: 07/07/2017 8:17 pm REASON FOR STUDY: difficulty breathing, new trach COMPARISON: 06/22/2017 EXAM PARAMETERS: NUMBER OF VIEWS: two views TECHNIQUE: Digital Frontal and Lateral radiographic views of the chest acquired. RADIATION DOSE: NA LIMITATIONS: none FINDINGS: LUNGS AND PLEURA: There is increased opacification in the medial right base compared to th e earlier study. MEDIASTINUM AND HILAR STRUCTURES: No masses or contour abnormalities. HEART AND VASCULAR STRUCTURES: Heart size is borderline. There is no evidence of failure. BONES: No acute findings. HARDWARE: A tracheostomy tube is present. OTHER: No other significant finding. IMPRESSION: Cannot exclude limited infiltrate in the medial right base versus atelectasis. Tracheos jens tube is in place. TECHNICAL DOCUMENTATION: JOB ID: [id number] [employer]- All Rights Reserved Reading location - IP/workstation name: [email or web address]
[2017-07-07 20:58] LABS: ALANINE AMINOTRANSFERASE 31 U/L (21-72); ALKALINE PHOSPHATASE 116 U/L (38-126); ANION GAP 11 (5-19); ASPARTATE AMINO TRANSFERASE 19 U/L (17-59); BILIRUBIN,DIRECT 0.2 mg/dL (0.0-0.4); BILIRUBIN,TOTAL 0.3 mg/dL (0.2-1.3); BLOOD UREA NITROGEN 11 mg/dL (7-20); CALCIUM 9.5 mg/dL (8.4-10.2); CARBON DIOXIDE 26 mmol/L (22-30); CHLORIDE 99 mmol/L (98-107); GLUCOSE 272 mg/dL (75-110); SODIUM 135.5 mmol/L (137-145)
[2017-07-07 21:23] LABS: ABSOLUTE BASOPHILS # (AUTO) 0.1 10^3/uL (0.0-0.2); ABSOLUTE EOSINOPHILS # (AUTO) 0.2 10^3/uL (0.0-0.6); ABSOLUTE LYMPHOCYTES (AUTO) 2.1 10^3/uL (0.5-4.7); ABSOLUTE MONOCYTES (AUTO) 1.1 10^3/uL (0.1-1.4); ABSOLUTE NEUT (AUTO) 7.2 10^3/uL (1.7-8.2); BASOPHILS % (AUTO) 0.7 % (0-2); EOSINOPHILS % (AUTO) 1.5 % (0-6); HEMOGLOBIN 13.1 g/dL (13.5-17.0); LYMPHOCYTES % (AUTO) 19.3 % (13-45); MEAN CORPUSCULAR HEMOGLOBIN 28.8 pg (27.0-33.4); MEAN CORPUSCULAR HGB CONC 32.8 g/dL (32.0-36.0); MEAN CORPUSCULAR VOLUME 88 fl (80-97); MONOCYTES % (AUTO) 10.7 % (3-13); PLATELET COUNT 203 10^3/uL (150-450); RED BLOOD COUNT 4.55 10^6/uL (4.35-5.55); RED CELL DISTRIBUTION WIDTH 15.2 % (11.5-14.0); SEGMENTED NEUTROPHILS % (AUTO) 67.8 % (42-78); TOTAL CELLS COUNTED % (AUTO) 100 %; WHITE BLOOD COUNT 10.6 10^3/uL (4.0-10.5)
--- NOTE | 2017-07-07 22:00 | ER Document Report ---
ED General - General Mode of Arrival: Ambulatory Information source: Patient TRAVEL OUTSIDE OF THE [place] IN LAST 30 DAYS: No <SOLA MCGILL - Last Filed: 07/07/17 23:41> <EMEKAMIROSLAVA Kristen - Last Filed: 07/12/17 07:00> - General Chief Complaint: Breathing Difficulty Stated Complaint: DIFFICULTY BREATHING Time Seen by Provider: 07/07/17 19:49 Notes: Patient is a 61 year old male with a recently placed tracheostomy () secondary to an anaphylaxis/angioedema and a history of COPD presents to the emergency department complaining of increased cough and difficulty breathing onset today. Patient describes his cough as productive with brown sputum. Patient also states it has been difficult for him to sleep due to his difficulty breathing and complains of night sweats. Patient denies any recent fevers. Patient also states he was unable to place his cannula today due to some resistance. Patient states when his removed his cannula he saw some bright red blood. (SOLA MCGILL) - Related Data Allergies/Adverse Reactions: codeine [Codeine] Allergy (Severe, Verified 06/26/17 12:49) Facial swelling hydrocodone bitartrate [From Vicodin] Allergy (Severe, Verified 06/26/17 12:49) Anaphylaxis lisinopril Allergy (Severe, Verified 06/26/17 12:49) Anaphylaxis hydromorphone [From Dilaudid] Allergy (Verified 06/26/17 12:49) Difficulty breathing Iodine and Iodide Containing Produc Allergy (Verified 06/26/17 12:49) Anaphylaxis morphine Allergy (Verified 06/26/17 12:49) Itching oxycodone Allergy (Verified 06/26/17 12:49) Swelling of tongue shellfish derived Allergy (Verified 06/26/17 12:49) Anaphylaxis Past Medical History - General Information source: Patient - Social History Smoking Status: Former Smoker Chew tobacco use (# tins/day): No Frequency of alcohol use: Occasional Drug Abuse: None Family History: Arthritis, CAD - Mother and brother, CVA, DM, Hyperlipidemia, Hypertension, Malignancy Patient has suicidal ideation: No Patient has homicidal ideation: No - Past Medical History Cardiac Medical History: Reports: Hx Atrial Fibrillation, Hx Congestive Heart Failure, Hx Hypercholesterolemia, Hx Hypertension, Hx Pulmonary Embolism Pulmonary Medical History: Reports: Hx Asthma, Hx COPD, Hx Pneumonia - 7 years ago, Hx Sleep Apnea - hx only, not a current problem, no CPAP, Hx Tuberculosis Neurological Medical History: Reports: Hx Cerebrovascular Accident Endocrine Medical History: Reports: Hx Diabetes Mellitus Type 2 Renal/ Medical History: Reports: Hx Kidney Stones - 1981 GI Medical History: Reports: Hx Gastroesophageal Reflux Disease, Hx Hepatitis - Hep C, Hx Pancreatitis - 1988, Hx Ulcer Musculoskeltal Medical History: Reports Hx Arthritis, Reports Hx Musculoskeletal Deformity, Reports Hx Musculoskeletal Trauma Traumatic Medical History: Reports: Hx Fractures, Hx Spine Fracture Infectious Medical History: Reports: Hx Hepatitis - Hep C Past Surgical History: Reports: Hx Abdominal Surgery - Hernia repair, bowel resection, Hx Appendectomy, Hx Bowel Surgery - bowel resection 1988, Hx Herniorrhaphy, Hx Oral Surgery, Hx Orthopedic Surgery - Spinal fusion. Meniscus repair., Other - Tracheostomy on 05/19/2017 - Immunizations Immunizations up to date: Yes Hx Diphtheria, Pertussis, Tetanus Vaccination: Yes Hx Pneumococcal Vaccination: 04/12/13 <SOLA MCGILL - Last Filed: 07/07/17 23:41> Review of Systems - Review of Systems Constitutional: No symptoms reported, See HPI, Diaphoresis EENT: No symptoms reported Cardiovascular: No symptoms reported Respiratory: See HPI, Cough, Short of breath Gastrointestinal: No symptoms reported Genitourinary: No symptoms reported Male Genitourinary: No symptoms reported Musculoskeletal: No symptoms reported Skin: No symptoms reported Hematologic/Lymphatic: No symptoms reported Neurological/Psychological: No symptoms reported -: Yes All other systems reviewed and negative <SOLA MCGILL - Last Filed: 07/07/17 23:41> Physical Exam <SOLA MCGILL - Last Filed: 07/07/17 23:41> <MIROSLAVA HENDRICKSON - Last Filed: 07/12/17 07:00> - Vital signs Vitals: Temp Pulse Resp BP Pulse Ox 98.5 F 96 16 123/81 93 07/07/17 19:20 07/07/17 19:20 07/07/17 19:20 07/07/17 19:20 07/07/17 19:20 - Notes Notes: GENERAL: Alert, interacts well. Appears short of breath. HEAD: Normocephalic, atraumatic. EYES: Pupils equal, round, and reactive to light. Extraocular movements intact. ENT: Oral mucosa moist, tongue midline. NECK: Full range of motion. Supple. Trachea midline. LUNGS: Clear to auscultation bilaterally, no wheezes, rales, or rhonchi. No respiratory distress. HEART: Regular rate and rhythm. No murmurs, gallops, or rubs. EXTREMITIES: Moves all 4 extremities spontaneously. NEUROLOGICAL: Alert and oriented x3. Normal speech. PSYCH: Normal affect, normal mood. SKIN: Warm, dry, normal turgor. No rashes or lesions noted. (SOLA MCGILL) Course - Laboratory Result Diagrams: 07/07/17 21:05 07/07/17 19:55 <SOLA MCGILL - Last Filed: 07/07/17 23:41> - Laboratory Result Diagrams: 07/07/17 21:05 07/07/17 19:55 <MIROSLAVA HENDRICKSON - Last Filed: 07/12/17 07:00> - Re-evaluation Re-evalutation: 07/07/17 23:01 Patient does show signs of right lower lobe infiltrate will be placed on Levaquin for concern of pneumonia. Respiratory care also placed in a cannula inside of tracheostomy with success after cleaning stoma. Return precautions provided the patient and he is to follow-up with his primary care provider next 4-5 days for reevaluation or sooner to the emergency department if symptoms are continuing. (MIROSLAVA HENDRICKSON) - Vital Signs Vital signs: Temp Pulse Resp BP Pulse Ox 98.8 F 97 19 124/82 96 07/07/17 23:47 07/07/17 23:47 07/07/17 23:47 07/07/17 23:47 07/07/17 23:47 - Laboratory Laboratory results interpreted by me: 07/07/17 07/07/17 19:55 21:05 WBC 10.6 H Hgb 13.1 L RDW 15.2 H Sodium 135.5 L Glucose 272 H Discharge <SOLA MCGILL - Last Filed: 07/07/17 23:41> <MIROSLAVA HENDRICKSON - Last Filed: 07/12/17 07:00> - Discharge Clinical Impression: Encounter for tracheostomy cleaning Pneumonia Qualifiers: Pneumonia type: due to unspecified organism Laterality: right Lung location: lower lobe of lung Qualified Code(s): J18.1 - Lobar pneumonia, unspecified organism Condition: Good Disposition: HOME, SELF-CARE Additional Instructions: Please follow-up with your primary care physician in the next 4-5 days for reevaluation or sooner in the emergency department if symptoms are worsening. Please take all antibiotics as prescribed Prescriptions: Levofloxacin [Levaquin 750 mg Tablet] 750 mg PO DAILY #5 tablet Referrals: KHUSHBOO MUJICA MD [Primary Care Provider] - Follow up as needed Scribe Attestation: 07/12/17 07:00 I personally performed the services described in the documentation, reviewed and edited the documentation which was dictated to the scribe in my presence, and it accurately records my words and actions. (MIROSLAVA HENDRICKSON) Scribe Documentation - Scribe Written by Sera:: Sera Howard, 07/07/2017 22:02 acting as scribe for :: Emeka <SOLA MCGILL - Last Filed: 07/07/17 23:41>
[2017-07-07] MEDS ORDERED: LEVOFLOXACIN 750 MG TABLET PO ONE (23:04)
[2017-07-07 23:49] VITALS: BP 124/82
== END 2017-07-07 23:49 | disposition home or self-care (01) ==
LOC: ER 19:12
DX: Z43.0 Encounter for attention to tracheostomy (principal); J18.1 Lobar pneumonia, unspecified organism; R06.9 Unspecified abnormalities of breathing; R05 Cough; J44.9 Chronic obstructive pulmonary disease, unspecified; R61 Generalized hyperhidrosis; Z87.891 Personal history of nicotine dependence; I10 Essential (primary) hypertension; E11.9 Type 2 diabetes mellitus without complications
CPT/HCPCS: 36415; 70360; 71046; 80053; 85025; 99285

== ENCOUNTER 2017-08-03 15:58 | Emergency (ER) | payer OTHER ==
--- NOTE | 2017-08-03 17:09 | ER Document Report ---
ED Medical Screen (RME) - General Chief Complaint: Breathing Difficulty Stated Complaint: TRACH ISSUES Time Seen by Provider: 08/03/17 17:07 Mode of Arrival: Ambulatory Information source: Patient, Relative, [facility] Records Notes: 61-year-old male who had a trach placed due to angioedema presents with complaints of difficulty breathing. Notes productive cough. notes picture of granulation around tracheal opening I have greeted and performed a rapid initial assessment of this patient. A comprehensive ED assessment and evaluation of the patient, analysis of test results and completion of the medical decision making process will be conducted by additional ED providers. PHYSICAL EXAMINATION: GENERAL: Well-appearing, well-nourished and in no acute distress. HEAD: Atraumatic, normocephalic. EYES: Pupils equal round extraocular movements intact, conjunctiva are normal. ENT: Nares patent NECK: Normal range of motion LUNGS: No respiratory distress Musculoskeletal: Normal range of motion NEUROLOGICAL: Normal speech, normal gait. PSYCH: Normal mood, normal affect. SKIN: Warm, Dry, normal turgor, no rashes or lesions noted. TRAVEL OUTSIDE OF THE [place] IN LAST 30 DAYS: No - Related Data Allergies/Adverse Reactions: codeine [Codeine] Allergy (Severe, Verified 08/03/17 17:02) Facial swelling hydrocodone bitartrate [From Vicodin] Allergy (Severe, Verified 08/03/17 17:02) Anaphylaxis lisinopril Allergy (Severe, Verified 08/03/17 17:02) Anaphylaxis hydromorphone [From Dilaudid] Allergy (Verified 08/03/17 17:02) Difficulty breathing Iodine and Iodide Containing Produc Allergy (Verified 08/03/17 17:02) Anaphylaxis morphine Allergy (Verified 08/03/17 17:02) Itching oxycodone Allergy (Verified 08/03/17 17:02) Swelling of tongue shellfish derived Allergy (Verified 08/03/17 17:02) Anaphylaxis Past Medical History - Past Medical History Cardiac Medical History: Reports: Hx Atrial Fibrillation, Hx Congestive Heart Failure, Hx Hypercholesterolemia, Hx Hypertension, Hx Pulmonary Embolism Denies: Hx Coronary Artery Disease, Hx Heart Attack, Hx Peripheral Vascular Disease, Hx Heart Murmur Pulmonary Medical History: Reports: Hx Asthma, Hx COPD, Hx Pneumonia - 7 years ago, Hx Sleep Apnea - hx only, not a current problem, no CPAP, Hx Tuberculosis Denies: Hx Bronchitis, Hx Respiratory Failure Neurological Medical History: Reports: Hx Cerebrovascular Accident. Denies: Hx Migraine Endocrine Medical History: Reports: Hx Diabetes Mellitus Type 2. Denies: Hx Graves' Disease, Hx Hyperthyroidism, Hx Hypothyroidism Renal/ Medical History: Reports: Hx Kidney Stones - 1981. Denies: Hx Benign Prostatic Hyperplasia, Hx End Stage Renal Disease, Hx Peritoneal Dialysis Malignancy Medical History: Denies Hx Lung Cancer GI Medical History: Reports: Hx Gastroesophageal Reflux Disease, Hx Hepatitis - Hep C, Hx Pancreatitis - 1988, Hx Ulcer. Denies: Hx Cirrhosis, Hx Crohn's Disease, Hx Hiatal Hernia, Hx Irritable Bowel, Hx Liver Failure, Hx Ulcerative Colitis Musculoskeltal Medical History: Reports Hx Arthritis, Denies Hx Fibromyalgia, Denies Hx Multiple Sclerosis, Denies Hx Muscular Dystrophy, Reports Hx Musculoskeletal Deformity, Reports Hx Musculoskeletal Trauma Skin Medical History: Denies Hx Psoriasis Psychiatric Medical History: Denies: Hx Bipolar Disorder, Hx Dementia, Hx Depression, Hx Post Traumatic Stress Disorder, Hx Schizophrenia Traumatic Medical History: Reports: Hx Fractures, Hx Spine Fracture. Denies: Hx Traumatic Brain Injury Infectious Medical History: Reports: Hx Hepatitis - Hep C Past Surgical History: Reports: Hx Abdominal Surgery - Hernia repair, bowel resection, Hx Appendectomy, Hx Bowel Surgery - bowel resection 1988, Hx Herniorrhaphy, Hx Oral Surgery, Hx Orthopedic Surgery - Spinal fusion. Meniscus repair., Other - Tracheostomy on 05/19/2017. Denies: Hx Cholecystectomy, Hx Colostomy, Hx Coronary Artery Bypass Graft, Hx Gastric Bypass Surgery, Hx Pacemaker, Hx Tonsillectomy - Immunizations Immunizations up to date: Yes Hx Diphtheria, Pertussis, Tetanus Vaccination: Yes History of Influenza Vaccine for 01/2017 - 06/2017 Season: Refused Physical Exam - Vital signs Vitals: Temp Pulse Resp BP Pulse Ox 98.3 F 107 H 20 124/85 94 08/03/17 16:08 08/03/17 16:08 08/03/17 16:08 08/03/17 16:08 08/03/17 16:08 Course - Vital Signs Vital signs: Temp Pulse Resp BP Pulse Ox 98.3 F 107 H 20 124/85 94 08/03/17 16:08 08/03/17 16:08 08/03/17 16:08 08/03/17 16:08 08/03/17 16:08
--- NOTE | 2017-08-03 17:29 | RADIOLOGY REPORT (SQ) ---
EXAM DESCRIPTION: CHEST 2 VIEWS COMPLETED DATE/TIME: 08/03/2017 5:16 pm REASON FOR STUDY: trach sob, productive cough COMPARISON: 07/07/2017 EXAM PARAMETERS: NUMBER OF VIEWS: two views TECHNIQUE: Digital Frontal and Lateral radiographic views of the chest acquired. RADIATION DOSE: NA LIMITATIONS: none FINDINGS: LUNGS AND PLEURA: Persistent opacification in the medial right base. MEDIASTINUM AND HILAR STRUCTURES: No masses or contour abnormalities. HEART AND VASCULAR STRUCTURES: Heart normal size. No evidence for failure. BONES: No acute findings. HARDWARE: Tracheostomy tube. OTHER: No other significant finding. IMPRESSION: Persistent opacification in the right base. Atelectasis versus limited pneumonia. TECHNICAL DOCUMENTATION: JOB ID: [id number] [employer]- All Rights Reserved Reading location - IP/workstation name: [email or web address]
--- NOTE | 2017-08-03 18:28 | ER Document Report ---
ED General - General Chief Complaint: Breathing Difficulty Stated Complaint: TRACH ISSUES Time Seen by Provider: 08/03/17 17:07 Mode of Arrival: Ambulatory Information source: Patient Notes: This is a 61-year-old man with a history of respiratory failure with trach in place since May 19 he was brought into the emergency room with chills, cough , bleeding and irritation around the trach site. Patient's notes that she has a difficult time putting the cannula and after suctioning. She also notes that there is been bleeding around the site and a smelly discharge. The trach size is a 6.0 long thin cannula TRAVEL OUTSIDE OF THE [place] IN LAST 30 DAYS: No - HPI Onset: Last week Onset/Duration: Gradual Quality of pain: No pain Severity: None Pain Level: Denies Associated symptoms: denies: Chest pain, Fever, Shortness of breath Exacerbated by: Denies Relieved by: Denies Similar symptoms previously: No Recently seen / treated by doctor: No - Related Data Allergies/Adverse Reactions: codeine [Codeine] Allergy (Severe, Verified 08/03/17 17:02) Facial swelling hydrocodone bitartrate [From Vicodin] Allergy (Severe, Verified 08/03/17 17:02) Anaphylaxis lisinopril Allergy (Severe, Verified 08/03/17 17:02) Anaphylaxis hydromorphone [From Dilaudid] Allergy (Verified 08/03/17 17:02) Difficulty breathing Iodine and Iodide Containing Produc Allergy (Verified 08/03/17 17:02) Anaphylaxis morphine Allergy (Verified 08/03/17 17:02) Itching oxycodone Allergy (Verified 08/03/17 17:02) Swelling of tongue shellfish derived Allergy (Verified 08/03/17 17:02) Anaphylaxis Past Medical History - General Information source: Patient, Relative, [facility] Records - Social History Smoking Status: Unknown if Ever Smoked Cigarette use (# per day): No Chew tobacco use (# tins/day): No Frequency of alcohol use: None Drug Abuse: None Lives with: Family Family History: Arthritis, CAD - Mother and brother, CVA, DM, Hyperlipidemia, Hypertension, Malignancy Patient has suicidal ideation: No Patient has homicidal ideation: No - Past Medical History Cardiac Medical History: Reports: Hx Atrial Fibrillation, Hx Congestive Heart Failure, Hx Hypercholesterolemia, Hx Hypertension, Hx Pulmonary Embolism Denies: Hx Coronary Artery Disease, Hx Heart Attack, Hx Peripheral Vascular Disease, Hx Heart Murmur Pulmonary Medical History: Reports: Hx Asthma, Hx COPD, Hx Pneumonia - 7 years ago, Hx Sleep Apnea - hx only, not a current problem, no CPAP, Hx Tuberculosis Denies: Hx Bronchitis, Hx Respiratory Failure Neurological Medical History: Reports: Hx Cerebrovascular Accident. Denies: Hx Migraine Endocrine Medical History: Reports: Hx Diabetes Mellitus Type 2. Denies: Hx Graves' Disease, Hx Hyperthyroidism, Hx Hypothyroidism Renal/ Medical History: Reports: Hx Kidney Stones - 1981. Denies: Hx Benign Prostatic Hyperplasia, Hx End Stage Renal Disease, Hx Peritoneal Dialysis Malignancy Medical History: Denies Hx Lung Cancer GI Medical History: Reports: Hx Gastroesophageal Reflux Disease, Hx Hepatitis - Hep C, Hx Pancreatitis - 1988, Hx Ulcer. Denies: Hx Cirrhosis, Hx Crohn's Disease, Hx Hiatal Hernia, Hx Irritable Bowel, Hx Liver Failure, Hx Ulcerative Colitis Musculoskeltal Medical History: Reports Hx Arthritis, Denies Hx Fibromyalgia, Denies Hx Multiple Sclerosis, Denies Hx Muscular Dystrophy, Reports Hx Musculoskeletal Deformity, Reports Hx Musculoskeletal Trauma Skin Medical History: Denies Hx Psoriasis Psychiatric Medical History: Denies: Hx Bipolar Disorder, Hx Dementia, Hx Depression, Hx Post Traumatic Stress Disorder, Hx Schizophrenia Traumatic Medical History: Reports: Hx Fractures, Hx Spine Fracture. Denies: Hx Traumatic Brain Injury Infectious Medical History: Reports: Hx Hepatitis - Hep C Past Surgical History: Reports: Hx Abdominal Surgery - Hernia repair, bowel resection, Hx Appendectomy, Hx Bowel Surgery - bowel resection 1988, Hx Herniorrhaphy, Hx Oral Surgery, Hx Orthopedic Surgery - Spinal fusion. Meniscus repair., Other - Tracheostomy on 05/19/2017. Denies: Hx Cholecystectomy, Hx Colostomy, Hx Coronary Artery Bypass Graft, Hx Gastric Bypass Surgery, Hx Pacemaker, Hx Tonsillectomy - Immunizations Immunizations up to date: Yes Hx Diphtheria, Pertussis, Tetanus Vaccination: Yes Hx Pneumococcal Vaccination: 04/12/13 Review of Systems - Review of Systems Constitutional: denies: Chills, Fever EENT: See HPI Cardiovascular: No symptoms reported Respiratory: No symptoms reported Gastrointestinal: No symptoms reported Genitourinary: No symptoms reported Male Genitourinary: No symptoms reported Musculoskeletal: No symptoms reported Skin: No symptoms reported Hematologic/Lymphatic: No symptoms reported Neurological/Psychological: No symptoms reported Physical Exam - Vital signs Vitals: Temp Pulse Resp BP Pulse Ox 98.3 F 107 H 20 124/85 94 08/03/17 16:08 08/03/17 16:08 08/03/17 16:08 08/03/17 16:08 08/03/17 16:08 Notes: Physical exam: GENERAL: 61-year-old man, alert and oriented 3, no acute distress HEAD: Atraumatic, normocephalic. EYES: Pupils equal round and reactive to light, extraocular movements intact, sclera anicteric, conjunctiva are normal. ENT: TMs normal, nares patent, oropharynx clear without exudates. Moist mucous membranes. NECK: Trach site with some purulent discharge, there is no active bleeding, no stridor. LUNGS: Breath sounds clear to auscultation bilaterally and equal. No wheezes rales or rhonchi. HEART: Regular rate and rhythm without murmurs, rubs or gallops. ABDOMEN: Soft, normoactive bowel sounds. No tenderness to palpation. No guarding, no rebound. No masses appreciated. EXTREMITIES: Normal range of motion, no pitting or edema. No clubbing or cyanosis. NEUROLOGICAL: Cranial nerves II through XII grossly intact. Normal speech, moving all extremities. PSYCH: Normal mood, normal affect. SKIN: Warm, Dry, normal turgor, no rashes or lesions noted. Course - Re-evaluation Re-evalutation: 08/03/17 20:21 I discussed case with Dr. Yanez who recommended following up with ENT and oral antibiotics. I discussed case with Dr. Winters (ENT) who is willing to see the patient in the office and he said his administrative assistant receptionist will contact the patient. We changed out The inner cannula of the trach and the patient had gotten 1 dose of antibiotics and will be sent home with a prescription. - Vital Signs Vital signs: Temp Pulse Resp BP Pulse Ox 98.4 F 104 H 20 141/86 H 94 08/03/17 20:32 08/03/17 20:32 08/03/17 20:32 08/03/17 20:32 08/03/17 20:32 - Laboratory Result Diagrams: 08/03/17 18:44 08/03/17 18:44 Laboratory results interpreted by me: 08/03/17 08/03/17 18:44 18:44 Hgb 13.1 L RDW 15.2 H Glucose 229 H - Diagnostic Test Radiology reviewed: Image reviewed, Reports reviewed - Chest x-ray shows no significant change compared to previous Discharge - Discharge Clinical Impression: Increased tracheal secretions Condition: Stable Disposition: HOME, SELF-CARE Additional Instructions: As we discussed, the concerns is at you may be getting some blockage around the trach site. We recommend that you get a referral stat to the ENT doctor (dr Winters) who may scope your trach site for evaluation. I have spoken to Dr. Winters and he is willing to see you promptly in the ENT clinic across the street from this hospital. Take the antibiotics as prescribed. Return to the emergency room for any problems Prescriptions: Levofloxacin 500 mg PO DAILY #6 tablet Referrals: MIROSLAVA WINTERS, DO [ASSOCIATE] - Follow up as needed (This is the number of the ENT doctor who I want you to see if this week. Call tomorrow and let the administrative assistant receptionist know that the ER doctor had spoken to Dr. Warner over the phone.)
[2017-08-03 18:55] LABS: ABSOLUTE EOSINOPHILS # (AUTO) 0.1 10^3/uL (0.0-0.6); ABSOLUTE LYMPHOCYTES (AUTO) 1.8 10^3/uL (0.5-4.7); ABSOLUTE MONOCYTES (AUTO) 0.7 10^3/uL (0.1-1.4); ABSOLUTE NEUT (AUTO) 4.6 10^3/uL (1.7-8.2); BASOPHILS % (AUTO) 0.5 % (0-2); EOSINOPHILS % (AUTO) 1.5 % (0-6); HEMATOCRIT 40.2 % (37.9-51.0); HEMOGLOBIN 13.1 g/dL (13.5-17.0); LYMPHOCYTES % (AUTO) 24.9 % (13-45); MEAN CORPUSCULAR HEMOGLOBIN 29.1 pg (27.0-33.4); MEAN CORPUSCULAR HGB CONC 32.7 g/dL (32.0-36.0); MEAN CORPUSCULAR VOLUME 89 fl (80-97); MONOCYTES % (AUTO) 9.1 % (3-13); PLATELET COUNT 171 10^3/uL (150-450); RED BLOOD COUNT 4.52 10^6/uL (4.35-5.55); RED CELL DISTRIBUTION WIDTH 15.2 % (11.5-14.0); TOTAL CELLS COUNTED % (AUTO) 100 %; WHITE BLOOD COUNT 7.3 10^3/uL (4.0-10.5)
[2017-08-03 19:15] LABS: ALANINE AMINOTRANSFERASE 32 U/L (21-72); ALBUMIN 3.9 g/dL (3.5-5.0); ALKALINE PHOSPHATASE 106 U/L (38-126); ANION GAP 14 (5-19); ASPARTATE AMINO TRANSFERASE 23 U/L (17-59); BILIRUBIN,DIRECT 0.3 mg/dL (0.0-0.4); BILIRUBIN,TOTAL 0.3 mg/dL (0.2-1.3); BLOOD UREA NITROGEN 14 mg/dL (7-20); CALCIUM 9.1 mg/dL (8.4-10.2); CARBON DIOXIDE 28 mmol/L (22-30); CHLORIDE 99 mmol/L (98-107); GLUCOSE 229 mg/dL (75-110); POTASSIUM 4.4 mmol/L (3.6-5.0); SODIUM 140.9 mmol/L (137-145); TOTAL PROTEIN 6.8 g/dL (6.3-8.2)
[2017-08-03] MEDS ORDERED: LEVOFLOXACIN 500 MG TABLET PO ONE (20:18)
[2017-08-03 20:41] VITALS: BP 141/86
== END 2017-08-03 20:35 | disposition home or self-care (01) ==
LOC: ER 15:58
DX: Z43.0 Encounter for attention to tracheostomy (principal); R06.00 Dyspnea, unspecified; R05 Cough; I48.91 Unspecified atrial fibrillation; I50.9 Heart failure, unspecified; E78.00 Pure hypercholesterolemia, unspecified; I11.0 Hypertensive heart disease with heart failure; J44.9 Chronic obstructive pulmonary disease, unspecified; E11.9 Type 2 diabetes mellitus without complications; Z91.013 Allergy to seafood; Z86.711 Personal history of pulmonary embolism; Z87.442 Personal history of urinary calculi; Z88.6 Allergy status to analgesic agent; Z86.19 Personal history of other infectious and parasitic diseases; Z98.1 Arthrodesis status
CPT/HCPCS: 36415; 71046; 80053; 85025; 87040; 99285

== ENCOUNTER 2017-08-27 11:02 | Emergency (ER) | payer OTHER ==
--- NOTE | 2017-08-27 11:51 | ER Document Report ---
ED Medical Screen (RME) - General Chief Complaint: Other Stated Complaint: TRACH PROBLEMS Time Seen by Provider: 08/27/17 11:45 Notes: RAPID MEDICAL EVALUATION DISCLOSURE I have seen this patient as part of a Rapid Medical Evaluation and, if applicable, placed any initially appropriate orders. The patient will be seen and fully evaluated, including a full history and physical exam, by a provider ( in Main ED or Fast Track) when a room becomes available. 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 The symptoms are progressively worsening. He feels like he is having trouble breathing due to the discharge. No fevers or chills. He does have a history of pneumonia. EXAM No significant cellulitis appreciated herman-tracheostomy CTAB RRR TRAVEL OUTSIDE OF THE [place] IN LAST 30 DAYS: No - Related Data Allergies/Adverse Reactions: codeine [Codeine] Allergy (Severe, Verified 08/27/17 11:05) Facial swelling hydrocodone bitartrate [From Vicodin] Allergy (Severe, Verified 08/27/17 11:05) Anaphylaxis lisinopril Allergy (Severe, Verified 08/27/17 11:05) Anaphylaxis hydromorphone [From Dilaudid] Allergy (Verified 08/27/17 11:05) Difficulty breathing Iodine and Iodide Containing Produc Allergy (Verified 08/27/17 11:05) Anaphylaxis morphine Allergy (Verified 08/27/17 11:05) Itching oxycodone Allergy (Verified 08/27/17 11:05) Swelling of tongue shellfish derived Allergy (Verified 08/27/17 11:05) Anaphylaxis Past Medical History - Social History Frequency of alcohol use: Occasional Drug Abuse: None - Past Medical History Cardiac Medical History: Reports: Hx Atrial Fibrillation, Hx Congestive Heart Failure, Hx Hypercholesterolemia, Hx Hypertension, Hx Pulmonary Embolism Denies: Hx Coronary Artery Disease, Hx Heart Attack, Hx Peripheral Vascular Disease, Hx Heart Murmur Pulmonary Medical History: Reports: Hx Asthma, Hx COPD, Hx Pneumonia - 7 years ago, Hx Sleep Apnea - hx only, not a current problem, no CPAP, Hx Tuberculosis Denies: Hx Bronchitis, Hx Respiratory Failure Neurological Medical History: Reports: Hx Cerebrovascular Accident. Denies: Hx Migraine Endocrine Medical History: Reports: Hx Diabetes Mellitus Type 2. Denies: Hx Graves' Disease, Hx Hyperthyroidism, Hx Hypothyroidism Renal/ Medical History: Reports: Hx Kidney Stones - 1981. Denies: Hx Benign Prostatic Hyperplasia, Hx End Stage Renal Disease, Hx Peritoneal Dialysis Malignancy Medical History: Denies Hx Lung Cancer GI Medical History: Reports: Hx Gastroesophageal Reflux Disease, Hx Hepatitis - Hep C, Hx Pancreatitis - 1988, Hx Ulcer. Denies: Hx Cirrhosis, Hx Crohn's Disease, Hx Hiatal Hernia, Hx Irritable Bowel, Hx Liver Failure, Hx Ulcerative Colitis Musculoskeltal Medical History: Reports Hx Arthritis, Denies Hx Fibromyalgia, Denies Hx Multiple Sclerosis, Denies Hx Muscular Dystrophy, Reports Hx Musculoskeletal Deformity, Reports Hx Musculoskeletal Trauma Skin Medical History: Denies Hx Psoriasis Psychiatric Medical History: Denies: Hx Bipolar Disorder, Hx Dementia, Hx Depression, Hx Post Traumatic Stress Disorder, Hx Schizophrenia Traumatic Medical History: Reports: Hx Fractures, Hx Spine Fracture. Denies: Hx Traumatic Brain Injury Infectious Medical History: Reports: Hx Hepatitis - Hep C Past Surgical History: Reports: Hx Abdominal Surgery - Hernia repair, bowel resection, Hx Appendectomy, Hx Bowel Surgery - bowel resection 1988, Hx Herniorrhaphy, Hx Oral Surgery, Hx Orthopedic Surgery - Spinal fusion. Meniscus repair., Other - Tracheostomy on 05/19/2017. Denies: Hx Cholecystectomy, Hx Colostomy, Hx Coronary Artery Bypass Graft, Hx Gastric Bypass Surgery, Hx Pacemaker, Hx Tonsillectomy - Immunizations Immunizations up to date: Yes Hx Diphtheria, Pertussis, Tetanus Vaccination: Yes History of Influenza Vaccine for 01/2017 - 06/2017 Season: Refused Physical Exam - Vital signs Vitals: Temp Pulse Resp BP Pulse Ox 98.6 F 89 20 131/79 H 94 08/27/17 11:10 08/27/17 11:10 08/27/17 11:10 08/27/17 11:10 08/27/17 11:10 Course - Vital Signs Vital signs: Temp Pulse Resp BP Pulse Ox 98.6 F 89 20 131/79 H 94 08/27/17 11:10 08/27/17 11:10 08/27/17 11:10 08/27/17 11:10 08/27/17 11:10
[2017-08-27 12:19] LABS: ABSOLUTE BASOPHILS # (AUTO) 0.1 10^3/uL (0.0-0.2); ABSOLUTE EOSINOPHILS # (AUTO) 0.1 10^3/uL (0.0-0.6); ABSOLUTE LYMPHOCYTES (AUTO) 1.8 10^3/uL (0.5-4.7); ABSOLUTE MONOCYTES (AUTO) 0.8 10^3/uL (0.1-1.4); ABSOLUTE NEUT (AUTO) 4.1 10^3/uL (1.7-8.2); BASOPHILS % (AUTO) 0.7 % (0-2); EOSINOPHILS % (AUTO) 2.1 % (0-6); HEMATOCRIT 42.2 % (37.9-51.0); HEMOGLOBIN 13.8 g/dL (13.5-17.0); LYMPHOCYTES % (AUTO) 26.1 % (13-45); MEAN CORPUSCULAR HEMOGLOBIN 29.1 pg (27.0-33.4); MEAN CORPUSCULAR HGB CONC 32.8 g/dL (32.0-36.0); MEAN CORPUSCULAR VOLUME 89 fl (80-97); MONOCYTES % (AUTO) 11.2 % (3-13); PLATELET COUNT 133 10^3/uL (150-450); RED BLOOD COUNT 4.76 10^6/uL (4.35-5.55); RED CELL DISTRIBUTION WIDTH 15.1 % (11.5-14.0); SEGMENTED NEUTROPHILS % (AUTO) 59.9 % (42-78); TOTAL CELLS COUNTED % (AUTO) 100 %; WHITE BLOOD COUNT 6.8 10^3/uL (4.0-10.5)
--- NOTE | 2017-08-27 12:25 | RADIOLOGY REPORT (SQ) ---
EXAM DESCRIPTION: CHEST 2 VIEWS COMPLETED DATE/TIME: 08/27/2017 12:09 pm REASON FOR STUDY: cough prod yellow sputum; eval pna COMPARISON: 08/03/2017 and 07/07/2017. EXAM PARAMETERS: NUMBER OF VIEWS: two views TECHNIQUE: Digital Frontal and Lateral radiographic views of the chest acquired. RADIATION DOSE: NA LIMITATIONS: none FINDINGS: LUNGS AND PLEURA: Streaky densities in the lung bases, right greater than left, unchanged. Hyperinflation. No pleural effusion. No pneumothorax. MEDIASTINUM AND HILAR STRUCTURES: No masses or contour abnormalities. HEART AND VASCULAR STRUCTURES: Heart normal size. No evidence for failure. BONES: No acute findings. HARDWARE: Tracheostomy tube. OTHER: No other significant finding. IMPRESSION: STREAKY DENSITIES IN THE LUNG BASES UNCHANGED. ATELECTASIS AND/OR SCARRING. TECHNICAL DOCUMENTATION: JOB ID: [id number] [employer]- All Rights Reserved Reading location - IP/workstation name: [email or web address]
--- NOTE | 2017-08-27 12:28 | RADIOLOGY REPORT (SQ) ---
EXAM DESCRIPTION: SOFT TISSUE NECK COMPLETED DATE/TIME: 08/27/2017 12:09 pm REASON FOR STUDY: trach discharge; eval subQ gas COMPARISON: None. NUMBER OF VIEWS: Two views. TECHNIQUE: AP and lateral radiographic image of the soft tissues of the neck. LIMITATIONS: None. FINDINGS: EPIGLOTTIS: Normal. Contour normal. Aryepiglottic folds normal. PREVERTEBRAL SOFT TISSUES: Normal. No soft tissue swelling. SUBGLOTTIC AREA: Normal. No narrowing. RETROPHARYNGEAL SPACE: Normal. No soft tissue masses. BONES: No significant findings. Degenerative changes in the cervical spine. LUNG APICES: Normal. OTHER: Tracheostomy tube. No visualized gas within the soft tissues. No radiopaque foreign body. N o other significant finding. IMPRESSION: NEGATIVE STUDY OF THE SOFT TISSUES OF THE NECK. NO VISUALIZED GAS IN THE SOFT TISSUES. TECHNICAL DOCUMENTATION: JOB ID: [id number] [employer]- All Rights Reserved Reading location - IP/workstation name: [email or web address]
[2017-08-27 12:35] LABS: ANION GAP 9 (5-19); BLOOD UREA NITROGEN 12 mg/dL (7-20); CALCIUM 9.5 mg/dL (8.4-10.2); CARBON DIOXIDE 35 mmol/L (22-30); CHLORIDE 99 mmol/L (98-107); GLUCOSE 129 mg/dL (75-110); POTASSIUM 3.9 mmol/L (3.6-5.0); SODIUM 142.5 mmol/L (137-145)
--- NOTE | 2017-08-27 14:28 | ER Document Report ---
ED General - General Chief Complaint: Other Stated Complaint: TRACH PROBLEMS Time Seen by Provider: 08/27/17 11:45 Mode of Arrival: Ambulatory Information source: Patient Notes: 61-year-old male presents with drainage coming from his trach site. Patient notes that this has been ongoing for about 3 weeks was on Levaquin and his symptoms improved and over the past week the drainage has returned. Patient denies any fevers or chills admits to a chronic cough TRAVEL OUTSIDE OF THE [place] IN LAST 30 DAYS: No - HPI Onset: Other Onset/Duration: Worse Quality of pain: No pain Severity: Mild Pain Level: Denies Associated symptoms: Other Exacerbated by: Denies Relieved by: Denies Similar symptoms previously: Yes Recently seen / treated by doctor: Yes - Related Data Allergies/Adverse Reactions: codeine [Codeine] Allergy (Severe, Verified 08/27/17 11:05) Facial swelling hydrocodone bitartrate [From Vicodin] Allergy (Severe, Verified 08/27/17 11:05) Anaphylaxis lisinopril Allergy (Severe, Verified 08/27/17 11:05) Anaphylaxis hydromorphone [From Dilaudid] Allergy (Verified 08/27/17 11:05) Difficulty breathing Iodine and Iodide Containing Produc Allergy (Verified 08/27/17 11:05) Anaphylaxis morphine Allergy (Verified 08/27/17 11:05) Itching oxycodone Allergy (Verified 08/27/17 11:05) Swelling of tongue shellfish derived Allergy (Verified 08/27/17 11:05) Anaphylaxis Past Medical History - Social History Smoking Status: Former Smoker Cigarette use (# per day): No Chew tobacco use (# tins/day): No Smoking Education Provided: No Frequency of alcohol use: Occasional Drug Abuse: None Family History: Arthritis, CAD - Mother and brother, CVA, DM, Hyperlipidemia, Hypertension, Malignancy Patient has suicidal ideation: No Patient has homicidal ideation: No - Past Medical History Cardiac Medical History: Reports: Hx Atrial Fibrillation, Hx Congestive Heart Failure, Hx Hypercholesterolemia, Hx Hypertension, Hx Pulmonary Embolism Denies: Hx Coronary Artery Disease, Hx Heart Attack, Hx Peripheral Vascular Disease, Hx Heart Murmur Pulmonary Medical History: Reports: Hx Asthma, Hx COPD, Hx Pneumonia - 7 years ago, Hx Sleep Apnea - hx only, not a current problem, no CPAP, Hx Tuberculosis Denies: Hx Bronchitis, Hx Respiratory Failure Neurological Medical History: Reports: Hx Cerebrovascular Accident. Denies: Hx Migraine Endocrine Medical History: Reports: Hx Diabetes Mellitus Type 2. Denies: Hx Graves' Disease, Hx Hyperthyroidism, Hx Hypothyroidism Renal/ Medical History: Reports: Hx Kidney Stones - 1981. Denies: Hx Benign Prostatic Hyperplasia, Hx End Stage Renal Disease, Hx Peritoneal Dialysis Malignancy Medical History: Denies Hx Lung Cancer GI Medical History: Reports: Hx Gastroesophageal Reflux Disease, Hx Hepatitis - Hep C, Hx Pancreatitis - 1988, Hx Ulcer. Denies: Hx Cirrhosis, Hx Crohn's Disease, Hx Hiatal Hernia, Hx Irritable Bowel, Hx Liver Failure, Hx Ulcerative Colitis Musculoskeltal Medical History: Reports Hx Arthritis, Denies Hx Fibromyalgia, Denies Hx Multiple Sclerosis, Denies Hx Muscular Dystrophy, Reports Hx Musculoskeletal Deformity, Reports Hx Musculoskeletal Trauma Skin Medical History: Denies Hx Psoriasis Psychiatric Medical History: Denies: Hx Bipolar Disorder, Hx Dementia, Hx Depression, Hx Post Traumatic Stress Disorder, Hx Schizophrenia Traumatic Medical History: Reports: Hx Fractures, Hx Spine Fracture. Denies: Hx Traumatic Brain Injury Infectious Medical History: Reports: Hx Hepatitis - Hep C Past Surgical History: Reports: Hx Abdominal Surgery - Hernia repair, bowel resection, Hx Appendectomy, Hx Bowel Surgery - bowel resection 1988, Hx Herniorrhaphy, Hx Oral Surgery, Hx Orthopedic Surgery - Spinal fusion. Meniscus repair., Other - Tracheostomy on 05/19/2017. Denies: Hx Cholecystectomy, Hx Colostomy, Hx Coronary Artery Bypass Graft, Hx Gastric Bypass Surgery, Hx Pacemaker, Hx Tonsillectomy - Immunizations Immunizations up to date: Yes Hx Diphtheria, Pertussis, Tetanus Vaccination: Yes Hx Pneumococcal Vaccination: 04/12/13 Review of Systems - Review of Systems Notes: REVIEW OF SYSTEMS: CONSTITUTIONAL : Denies fever, chills, or sweats. Denies recent illness. EENT: Drainage from trach CARDIOVASCULAR: Denies chest pain. Denies palpitations or racing or irregular heart beat. Denies ankle edema. RESPIRATORY: Denies cough, cold, or chest congestion. Denies shortness of breath, difficulty breathing, or wheezing. GASTROINTESTINAL: Denies abdominal pain or distention. Denies nausea, vomiting , or diarrhea. Denies blood in vomitus, stools, or per rectum. Denies black, tarry stools. Denies constipation. GENITOURINARY: Denies difficulty urinating, painful urination, burning, frequency, blood in urine, or discharge. MUSCULOSKELETAL: Denies back or neck pain or stiffness. Denies joint pain or swelling. SKIN: Denies rash, lesions or sores. HEMATOLOGIC : Denies easy bruising or bleeding. LYMPHATIC: Denies swollen, enlarged glands. NEUROLOGICAL: Denies confusion or altered mental status. Denies passing out or loss of consciousness. Denies dizziness or lightheadedness. Denies headache. Denies weakness or paralysis or loss of use of either side. Denies problems with gait or speech. Denies sensory loss, numbness, or tingling. Denies seizures. PSYCHIATRIC: Denies anxiety or stress. Denies depression, suicidal ideation, or homicidal ideation. ALL OTHER SYSTEMS REVIEWED AND NEGATIVE. Dictation was performed using [employer] voice recognition software PHYSICAL EXAMINATION: GENERAL: Well-appearing, well-nourished and in no acute distress. HEAD: Atraumatic, normocephalic. EYES: Pupils equal round and reactive to light, extraocular movements intact, sclera anicteric, conjunctiva are normal. ENT: Nares patent, oropharynx clear without exudates. Moist mucous membranes. NECK: Tracheal stoma notes mild drainage is small amount of skin breakdown noted no cellulitic component no abscess LUNGS: Breath sounds clear to auscultation bilaterally and equal. No wheezes rales or rhonchi. HEART: Regular rate and rhythm without murmurs ABDOMEN: Soft, nontender, nondistended abdomen. No guarding, no rebound. No masses appreciated. Musculoskeletal: Normal range of motion, no pitting or edema. No cyanosis. NEUROLOGICAL: Cranial nerves grossly intact. Normal speech, normal gait. Normal sensory, motor exams PSYCH: Normal mood, normal affect. SKIN: Warm, Dry, normal turgor, no rashes or lesions noted. Physical Exam - Vital signs Vitals: Temp Pulse Resp BP Pulse Ox 98.6 F 89 20 131/79 H 94 08/27/17 11:10 08/27/17 11:10 08/27/17 11:10 08/27/17 11:10 08/27/17 11:10 Course - Re-evaluation Re-evalutation: 08/27/17 19:28 The wound was swabbed, patient will be started on Bactrim and Keflex, at this time he has no signs of sepsis his airways patent After performing a Medical Screening Examination, I estimate there is LOW risk for OPEN FRACTURE, COMPARTMENT SYNDROME, TENDON RUPTURE, ACUTE NEUROVASCULAR INJURY, or RETAINED FOREIGN BODY, thus I consider the discharge disposition reasonable. Also, there is no evidence or peritonitis, sepsis, or toxicity. I have reevaluated this patient multiple times and no significant life threatening changes are noted. The patient and I have discussed the diagnosis and risks, and we agree with discharging home with close follow-up with the understanding that symptoms and presentations can change. We also discussed returning to the Emergency Department immediately if new or worsening symptoms occur. We have discussed the symptoms which are most concerning (e.g., changing or worsening pain, fever, numbness, weakness, cool or painful digits) that necessitate immediate return. - Vital Signs Vital signs: Temp Pulse Resp BP Pulse Ox 98.4 F 92 18 121/70 97 08/27/17 14:42 08/27/17 14:42 08/27/17 14:42 08/27/17 14:42 08/27/17 14:42 - Laboratory Result Diagrams: 08/27/17 12:04 08/27/17 12:04 Laboratory results interpreted by me: 08/27/17 08/27/17 12:04 12:04 RDW 15.1 H Plt Count 133 L Carbon Dioxide 35 H Glucose 129 H - Diagnostic Test Radiology reviewed: Image reviewed - X-ray chest 2 view notes no significant abnormality chronic streaking noted, Reports reviewed Discharge - Discharge Clinical Impression: Infection of tracheostomy stoma Condition: Stable Disposition: HOME, SELF-CARE Prescriptions: Cephalexin Monohydrate [Keflex 500 mg Capsule] 500 mg PO QID #40 capsule Sulfamethoxazole/Trimethoprim [Bactrim Ds Tablet] 2 each PO BID #40 tablet Referrals: ROSALINA TOMAS MD [ACTIVE STAFF] - Follow up in 3-5 days
[2017-08-27 14:43] VITALS: BP 121/70
== END 2017-08-27 14:43 | disposition home or self-care (01) ==
LOC: ER 11:02
DX: J95.02 Infection of tracheostomy stoma (principal); Y83.3 Surgical operation with formation of external stoma as the cause of abnormal reaction of the patient, or of later complication, without mention of misadventure at the time of the procedure; Z86.19 Personal history of other infectious and parasitic diseases; Z98.1 Arthrodesis status; I48.91 Unspecified atrial fibrillation; I50.9 Heart failure, unspecified; I11.0 Hypertensive heart disease with heart failure; Z86.711 Personal history of pulmonary embolism; E78.00 Pure hypercholesterolemia, unspecified; J44.9 Chronic obstructive pulmonary disease, unspecified; E11.9 Type 2 diabetes mellitus without complications; Z87.442 Personal history of urinary calculi; Z88.6 Allergy status to analgesic agent; Z91.013 Allergy to seafood
CPT/HCPCS: 36415; 70360; 71046; 80048; 85025; 87070; 87205; 99284

== ENCOUNTER 2017-10-21 06:51 | Emergency (ER) | payer OTHER ==
--- NOTE | 2017-10-21 07:12 | ER Document Report ---
ED General - General Chief Complaint: Other Stated Complaint: BLEEDING FROM TRACH Time Seen by Provider: 10/21/17 07:11 TRAVEL OUTSIDE OF THE [place] IN LAST 30 DAYS: No - HPI Patient complains to provider of: Discharge from trach Notes: 61-year-old man who is now had a trach in place for 5 months presents with what they think is another infection and straight. He has had multiple skin infections over the last several months. Copious discharge his morning blood tinged no foul smelling. Patient denies fever chills nausea vomiting shortness of breath or cough. Patient followed by pulmonology, scheduled to see ear nose and throat tomorrow morning for possible transition to a metal trach. Due to multiple superficial infections. - Related Data Allergies/Adverse Reactions: codeine [Codeine] Allergy (Severe, Verified 08/27/17 11:05) Facial swelling hydrocodone bitartrate [From Vicodin] Allergy (Severe, Verified 08/27/17 11:05) Anaphylaxis lisinopril Allergy (Severe, Verified 08/27/17 11:05) Anaphylaxis hydromorphone [From Dilaudid] Allergy (Verified 08/27/17 11:05) Difficulty breathing Iodine and Iodide Containing Produc Allergy (Verified 08/27/17 11:05) Anaphylaxis morphine Allergy (Verified 08/27/17 11:05) Itching oxycodone Allergy (Verified 08/27/17 11:05) Swelling of tongue shellfish derived Allergy (Verified 08/27/17 11:05) Anaphylaxis Past Medical History - Social History Smoking Status: Unknown if Ever Smoked Family History: Arthritis, CAD - Mother and brother, CVA, DM, Hyperlipidemia, Hypertension, Malignancy - Past Medical History Cardiac Medical History: Reports: Hx Atrial Fibrillation, Hx Congestive Heart Failure, Hx Hypercholesterolemia, Hx Hypertension, Hx Pulmonary Embolism Denies: Hx Coronary Artery Disease, Hx Heart Attack, Hx Peripheral Vascular Disease, Hx Heart Murmur Pulmonary Medical History: Reports: Hx Asthma, Hx COPD, Hx Pneumonia - 7 years ago, Hx Sleep Apnea - hx only, not a current problem, no CPAP, Hx Tuberculosis Denies: Hx Bronchitis, Hx Respiratory Failure Neurological Medical History: Reports: Hx Cerebrovascular Accident. Denies: Hx Migraine Endocrine Medical History: Reports: Hx Diabetes Mellitus Type 2. Denies: Hx Graves' Disease, Hx Hyperthyroidism, Hx Hypothyroidism Renal/ Medical History: Reports: Hx Kidney Stones - 1981. Denies: Hx Benign Prostatic Hyperplasia, Hx End Stage Renal Disease, Hx Peritoneal Dialysis Malignancy Medical History: Denies Hx Lung Cancer GI Medical History: Reports: Hx Gastroesophageal Reflux Disease, Hx Hepatitis - Hep C, Hx Pancreatitis - 1988, Hx Ulcer. Denies: Hx Cirrhosis, Hx Crohn's Disease, Hx Hiatal Hernia, Hx Irritable Bowel, Hx Liver Failure, Hx Ulcerative Colitis Musculoskeletal Medical History: Reports Hx Arthritis, Denies Hx Fibromyalgia, Denies Hx Multiple Sclerosis, Denies Hx Muscular Dystrophy, Reports Hx Musculoskeletal Deformity, Reports Hx Musculoskeletal Trauma Skin Medical History: Denies Hx Psoriasis Psychiatric Medical History: Denies: Hx Bipolar Disorder, Hx Dementia, Hx Depression, Hx Post Traumatic Stress Disorder, Hx Schizophrenia Traumatic Medical History: Reports: Hx Fractures, Hx Spine Fracture. Denies: Hx Traumatic Brain Injury Infectious Medical History: Reports: Hx Hepatitis - Hep C Past Surgical History: Reports: Hx Abdominal Surgery - Hernia repair, bowel resection, Hx Appendectomy, Hx Bowel Surgery - bowel resection 1988, Hx Herniorrhaphy, Hx Oral Surgery, Hx Orthopedic Surgery - Spinal fusion. Meniscus repair., Other - Tracheostomy on 05/19/2017. Denies: Hx Cholecystectomy, Hx Colostomy, Hx Coronary Artery Bypass Graft, Hx Gastric Bypass Surgery, Hx Pacemaker, Hx Tonsillectomy - Immunizations Immunizations up to date: Yes Hx Diphtheria, Pertussis, Tetanus Vaccination: Yes Hx Pneumococcal Vaccination: 04/12/13 Review of Systems - Review of Systems Notes: REVIEW OF SYSTEMS: CONSTITUTIONAL: -fevers, -chills EENT: -eye pain, -difficulty swallowing, -nasal congestion CARDIOVASCULAR: -chest pain, -syncope. RESPIRATORY: -cough, -SOB GASTROINTESTINAL: -abdominal pain, -nausea, -vomiting, -diarrhea GENITOURINARY: -dysuria, -hematuria MUSCULOSKELETAL: -back pain, -neck pain SKIN: -rash or skin lesions. HEMATOLOGIC: -easy bruising or bleeding. LYMPHATIC: -swollen, enlarged glands. NEUROLOGICAL: -altered mental status or loss of consciousness, -headache, - neurologic symptoms PSYCHIATRIC: -anxiety, -depression. ALL OTHER SYSTEMS REVIEWED AND NEGATIVE. Physical Exam - Vital signs Vitals: Temp Pulse Resp BP Pulse Ox 97.7 F 80 20 110/73 94 10/21/17 07:01 10/21/17 07:01 10/21/17 07:01 10/21/17 07:01 10/21/17 07:01 - Notes Notes: PHYSICAL EXAMINATION: GENERAL: Well-appearing, well-nourished and in no acute distress. HEAD: Atraumatic, normocephalic. EYES: Pupils equal round and reactive to light, extraocular movements intact, sclera anicteric, conjunctiva are normal. ENT: nares patent, oropharynx clear without exudates. Moist mucous membranes. NECK: Plastic trach in place. Some mild purulent discharge from the left side of his trach. Serosanguineous discharge. Please was well secured. Y LUNGS: Breath sounds clear to auscultation bilaterally and equal. No wheezes rales or rhonchi. HEART: Regular rate and rhythm without murmurs ABDOMEN: Soft, nontender, normoactive bowel sounds. No guarding, no rebound. No masses appreciated. EXTREMITIES: Normal range of motion, no pitting or edema. No cyanosis. NEUROLOGICAL: Cranial nerves grossly intact. Normal speech, normal gait. Normal sensory and motor exams. PSYCH: Normal mood, normal affect. SKIN: Warm, Dry, normal turgor, no rashes or lesions noted. 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 Lungs are clear for focal process no pneumonia noted afebrile patient stable vitals within normal limits. Patient will be initiated on antibiotic therapy. Scheduled to see his ENT tomorrow for placement of a permanent metal trach. - Vital Signs Vital signs: Temp Pulse Resp BP Pulse Ox 97.7 F 80 20 110/73 94 10/21/17 07:01 10/21/17 07:01 10/21/17 07:01 10/21/17 07:01 10/21/17 07:01 Discharge - Discharge Clinical Impression: Cellulitis Qualifiers: Site of cellulitis: neck Qualified Code(s): L03.221 - Cellulitis of neck Condition: Stable Disposition: HOME, SELF-CARE Instructions: Cellulitis ([facility]) Additional Instructions: See your ENT tomorrow Prescriptions: Doxycycline Hyclate 100 mg PO BID #14 capsule Referrals: FRANCES OSUNA MD [Primary Care Provider] - Follow up as needed
--- NOTE | 2017-10-21 08:39 | RADIOLOGY REPORT (SQ) ---
EXAM DESCRIPTION: CHEST SINGLE VIEW COMPLETED DATE/TIME: 10/21/2017 7:29 am REASON FOR STUDY: sob COMPARISON: 08/27/2017 EXAM PARAMETERS: NUMBER OF VIEWS: One view. TECHNIQUE: Single frontal radiographic view of the chest acquired. RADIATION DOSE: NA LIMITATIONS: None. FINDINGS: LUNGS AND PLEURA: Stable bibasilar atelectasis or scar. No acute pulmonary consolidation . No pneumothorax or pleural effusion. MEDIASTINUM AND HILAR STRUCTURES: No masses. Contour normal. HEART AND VASCULAR STRUCTURES: Stable appearance. BONES: No acute findings. HARDWARE: Tracheostomy tube in place. Small metallic device overlies the left upper lobe. OTHER: No other significant finding. IMPRESSION: 1 Stable slight bibasilar atelectasis or scar at the lung bases. No acute pulmonary con solidation. TECHNICAL DOCUMENTATION: JOB ID: [id number] [employer]- All Rights Reserved Reading location - IP/workstation name: [email or web address]
[2017-10-21 13:43] VITALS: BP 103/85
== END 2017-10-21 14:42 | disposition home or self-care (01) ==
LOC: ER 06:51
DX: L03.221 Cellulitis of neck (principal); Z93.0 Tracheostomy status; I48.91 Unspecified atrial fibrillation; I13.2 Hypertensive heart and chronic kidney disease with heart failure and with stage 5 chronic kidney disease, or end stage renal disease; E11.22 Type 2 diabetes mellitus with diabetic chronic kidney disease; N18.6 End stage renal disease; I50.9 Heart failure, unspecified; E78.00 Pure hypercholesterolemia, unspecified; Z86.711 Personal history of pulmonary embolism; J44.9 Chronic obstructive pulmonary disease, unspecified; Z86.73 Personal history of transient ischemic attack (TIA), and cerebral infarction without residual deficits; Z87.442 Personal history of urinary calculi; N40.0 Benign prostatic hyperplasia without lower urinary tract symptoms; K21.9 Gastro-esophageal reflux disease without esophagitis; B19.20 Unspecified viral hepatitis C without hepatic coma; M19.90 Unspecified osteoarthritis, unspecified site
CPT/HCPCS: 71045; 87070; 87077; 87186; 87205; 99283

== ENCOUNTER 2017-11-25 17:09 | Emergency (ER) | payer OTHER ==
[2017-11-25] MEDS ORDERED: LIDOCAINE 2% INJ-PF (20 MG/ML) 10 ML AMPUL NEB ONE (18:29)
--- NOTE | 2017-11-25 18:34 | ER Document Report ---
ED General - General Chief Complaint: Breathing Difficulty Stated Complaint: BLEEDING AROUND TRACH Time Seen by Provider: 11/25/17 18:15 Notes: Patient is a 61-year-old male with a past medical history of tracheostomy due to an inability to intubate him in May of this year in the context of an anaphylactic reaction who presents with concerns of a bloody sputum production from his tracheostomy earlier today. The patient reports that he an episode in which he felt quite short of breath, felt like he needed to suction out his trach and when he did so a bloody, thick clot was removed. He also notes that he has had increased sputum production from the tracheostomy. He states despite suctioning out the trach he did not have resolution of his shortness of breath prompting him to come to the emergency department. He did contact his general doctor who encouraged him to come to the emergency department. He denies any fever or constitutional symptoms. Symptoms of sputum production have been present for the past 24 hours. He reports a history of similar symptoms in the past related to local soft tissue infections and has not yet had his tracheostomy replaced. He states that his symptoms have overall improved at this time after receiving a nebulizer in triage. Nothing worsened his symptoms when they are present. TRAVEL OUTSIDE OF THE [place] IN LAST 30 DAYS: No - Related Data Allergies/Adverse Reactions: codeine [Codeine] Allergy (Severe, Verified 11/25/17 17:14) Facial swelling hydrocodone bitartrate [From Vicodin] Allergy (Severe, Verified 11/25/17 17:14) Anaphylaxis lisinopril Allergy (Severe, Verified 11/25/17 17:14) Anaphylaxis hydromorphone [From Dilaudid] Allergy (Verified 11/25/17 17:14) Difficulty breathing Iodine and Iodide Containing Produc Allergy (Verified 11/25/17 17:14) Anaphylaxis morphine Allergy (Verified 11/25/17 17:14) Itching oxycodone Allergy (Verified 11/25/17 17:14) Swelling of tongue shellfish derived Allergy (Verified 11/25/17 17:14) Anaphylaxis All Opioids Allergy (Uncoded 11/25/17 17:14) Swellling Past Medical History - General Information source: Patient - Social History Smoking Status: Former Smoker Frequency of alcohol use: Rare Drug Abuse: None Lives with: Spouse/Significant other Family History: Arthritis, CAD - Mother and brother, CVA, DM, Hyperlipidemia, Hypertension, Malignancy Patient has suicidal ideation: No Patient has homicidal ideation: No - Past Medical History Cardiac Medical History: Reports: Hx Atrial Fibrillation, Hx Congestive Heart Failure, Hx Hypercholesterolemia, Hx Hypertension, Hx Pulmonary Embolism Denies: Hx Coronary Artery Disease, Hx Heart Attack, Hx Peripheral Vascular Disease, Hx Heart Murmur Pulmonary Medical History: Reports: Hx Asthma, Hx COPD, Hx Pneumonia - 7 years ago, Hx Sleep Apnea - hx only, not a current problem, no CPAP, Hx Tuberculosis Denies: Hx Bronchitis, Hx Respiratory Failure Neurological Medical History: Reports: Hx Cerebrovascular Accident - Pt states no deficits. Denies: Hx Migraine, Hx Seizures Endocrine Medical History: Reports: Hx Diabetes Mellitus Type 2. Denies: Hx Graves' Disease, Hx Hyperthyroidism, Hx Hypothyroidism Renal/ Medical History: Reports: Hx Kidney Stones - 1981. Denies: Hx Benign Prostatic Hyperplasia, Hx End Stage Renal Disease, Hx Peritoneal Dialysis Malignancy Medical History: Denies Hx Lung Cancer GI Medical History: Reports: Hx Gastroesophageal Reflux Disease, Hx Hepatitis - Hep C, Hx Pancreatitis - 1988, Hx Ulcer. Denies: Hx Cirrhosis, Hx Crohn's Disease, Hx Hiatal Hernia, Hx Irritable Bowel, Hx Liver Failure, Hx Ulcerative Colitis Musculoskeletal Medical History: Reports Hx Arthritis - Back , Denies Hx Fibromyalgia, Denies Hx Multiple Sclerosis, Denies Hx Muscular Dystrophy, Reports Hx Musculoskeletal Deformity, Reports Hx Musculoskeletal Trauma Skin Medical History: Denies Hx Psoriasis Psychiatric Medical History: Denies: Hx Bipolar Disorder, Hx Dementia, Hx Depression, Hx Post Traumatic Stress Disorder, Hx Schizophrenia Traumatic Medical History: Reports: Hx Fractures, Hx Spine Fracture. Denies: Hx Traumatic Brain Injury Infectious Medical History: Reports: Hx Hepatitis - Hep C Past Surgical History: Reports: Hx Abdominal Surgery - Hernia repair, bowel resection, Hx Appendectomy, Hx Bowel Surgery - bowel resection 1988, Hx Herniorrhaphy, Hx Oral Surgery, Hx Orthopedic Surgery - Spinal fusion. Meniscus repair., Other - Tracheostomy on 05/19/2017. Denies: Hx Cholecystectomy, Hx Colostomy, Hx Coronary Artery Bypass Graft, Hx Gastric Bypass Surgery, Hx Pacemaker, Hx Tonsillectomy - Immunizations Immunizations up to date: Yes Hx Diphtheria, Pertussis, Tetanus Vaccination: Yes Hx Pneumococcal Vaccination: 04/12/17 Review of Systems - Review of Systems Notes: Constitutional: Negative for fever. HENT: Negative for sore throat. Eyes: Negative for visual changes. Cardiovascular: Negative for chest pain. Respiratory: Positive for shortness of breath. Gastrointestinal: Negative for abdominal pain, vomiting or diarrhea. Genitourinary: Negative for dysuria. Musculoskeletal: Negative for back pain. Skin: Negative for rash. Neurological: Negative for headaches, weakness or numbness. 10 point ROS negative except as marked above and in HPI. Physical Exam - Vital signs Vitals: Temp Pulse Resp BP Pulse Ox 97.8 F 94 20 114/80 89 L 11/25/17 17:22 11/25/17 17:22 11/25/17 17:22 11/25/17 17:22 11/25/17 17:22 Interpretation: Hypoxic Notes: PHYSICAL EXAMINATION: GENERAL: Well-appearing, well-nourished and in no acute distress. HEAD: Atraumatic, normocephalic. EYES: Pupils equal round and reactive to light, extraocular movements intact, sclera anicteric, conjunctiva are normal. ENT: Stoma well in appearance, no associated evidence of erythema, induration or purulent drainage, nares patent, oropharynx clear without exudates. Moist mucous membranes. NECK: Normal range of motion, supple without lymphadenopathy, no stridor LUNGS: Breath sounds clear to auscultation bilaterally and equal. No wheezes rales or rhonchi. HEART: Regular rate and rhythm without murmurs ABDOMEN: Soft, nontender, normoactive bowel sounds. No guarding, no rebound. No masses appreciated. EXTREMITIES: Normal range of motion, no pitting or edema. No cyanosis. NEUROLOGICAL: No focal neurological deficits. Moves all extremities spontaneously and on command. PSYCH: Normal mood, normal affect. SKIN: Warm, Dry, normal turgor, no rashes or lesions noted. Course - Re-evaluation Re-evalutation: 11/25/17 18:32 Patient presents after feeling somewhat short of breath, attempting to suction out his trach which resulted in a clot mixed with a mucous plug being removed from the tracheostomy. Patient states that despite removing this combination of blood and phlegm he did not have complete resolution of his comfort in breathing and shortness of breath prompting him to come to the emergency department. On assessment, the patient has his inner cannula removed, has a trach collar in place of the nebulizer and is breathing without any difficulty, currently 100%. He does not normally use a trach collar at home. The trach was placed due to inability to intubate in the setting of an anaphylactic reaction in May 2017. The patient has had recurrent problems with local soft tissue skin infections around the tracheostomy site and is supposed to have a metal trach placement has not yet had this performed apparently due to the part not being available when he arrived for surgery several days ago. The patient is currently in no immediate distress. Will provide lidocaine nebulizer through the tracheostomy as patient reports some soreness and is hesitant to allow suctioning at this time. He has clear breath sounds bilaterally. Will obtain a soft tissue neck x-ray as well as a chest x-ray to evaluate for possible pneumonia, less likely airway narrowing or mass in the upper airway. Will then reassess the patient 11/25/17 20:35 Chest x-ray and soft tissue neck x-ray are both unremarkable without any evidence of acute pathology. The patient has been discontinued off tracheostomy collar, is saturating above 93% on room air which is his normal. He states he is breathing much better after suctioning. Labs noted to be unremarkable without evidence of a leukocytosis or renal failure. At this time will discharge with return precautions and follow-up recommendations. Verbal discharge instructions given a the bedside and opportunity for questions given. Medication warnings reviewed. Patient is in agreement with this plan and has verbalized understanding of return precautions and the need for primary care follow-up in the next 24-72 hours. - Vital Signs Vital signs: Temp Pulse Resp BP Pulse Ox 98.3 F 94 21 H 121/91 H 97 11/25/17 18:47 11/25/17 17:22 11/25/17 21:01 11/25/17 21:01 11/25/17 21:01 - Laboratory Result Diagrams: 11/25/17 17:50 11/25/17 17:50 Laboratory results interpreted by me: 11/25/17 11/25/17 17:50 17:50 Hgb 13.1 L RDW 14.4 H Plt Count 149 L Glucose 129 H - Diagnostic Test Radiology reviewed: Image reviewed, Reports reviewed Radiology results interpreted by me: 11/25/17 20:36 Chest x-ray: No acute infiltrate or pneumothorax Discharge - Discharge Clinical Impression: Tracheostomy care, Increased sputum production Tracheostomy complication Qualifiers: Tracheostomy complication: unspecified Qualified Code(s): J95.00 - Unspecified tracheostomy complication Condition: Stable Disposition: HOME, SELF-CARE Additional Instructions: Your chest x-ray and neck x-ray as well as your labs are normal today. Your oxygen level has normalized after suctioning. Please follow-up closely with your primary care doctor within the next 24-48 hours. Return if you develop difficulty breathing, began having blood come out of your tracheostomy, develop a fever of >100.4F, or have any other symptoms or concerns. Referrals: FRANCES OSUNA MD [Primary Care Provider] - Follow up as needed
[2017-11-25 18:55] LABS: ABSOLUTE EOSINOPHILS # (AUTO) 0.1 10^3/uL (0.0-0.6); ABSOLUTE MONOCYTES (AUTO) 0.8 10^3/uL (0.1-1.4); BASOPHILS % (AUTO) 0.3 % (0-2); EOSINOPHILS % (AUTO) 1.1 % (0-6); HEMATOCRIT 39.7 % (37.9-51.0); HEMOGLOBIN 13.1 g/dL (13.5-17.0); LYMPHOCYTES % (AUTO) 28.9 % (13-45); MEAN CORPUSCULAR HEMOGLOBIN 28.9 pg (27.0-33.4); MEAN CORPUSCULAR VOLUME 88 fl (80-97); PLATELET COUNT 149 10^3/uL (150-450); RED BLOOD COUNT 4.52 10^6/uL (4.35-5.55); RED CELL DISTRIBUTION WIDTH 14.4 % (11.5-14.0); SEGMENTED NEUTROPHILS % (AUTO) 58.7 % (42-78); TOTAL CELLS COUNTED % (AUTO) 100 %; WHITE BLOOD COUNT 6.8 10^3/uL (4.0-10.5)
[2017-11-25 18:58] LABS: ANION GAP 12 (5-19); BLOOD UREA NITROGEN 13 mg/dL (7-20); CALCIUM 9.1 mg/dL (8.4-10.2); CARBON DIOXIDE 29 mmol/L (22-30); CHLORIDE 100 mmol/L (98-107); GLUCOSE 129 mg/dL (75-110); POTASSIUM 4.6 mmol/L (3.6-5.0)
--- NOTE | 2017-11-25 20:07 | RADIOLOGY REPORT (SQ) ---
EXAM DESCRIPTION: SOFT TISSUE NECK COMPLETED DATE/TIME: 11/25/2017 7:47 pm REASON FOR STUDY: sob, trach COMPARISON: None. NUMBER OF VIEWS: Two views. TECHNIQUE: AP and lateral radiographic image of the soft tissues of the neck. LIMITATIONS: None. FINDINGS: EPIGLOTTIS: Normal. Contour normal. Aryepiglottic folds normal. PREVERTEBRAL SOFT TISSUES: Normal. No soft tissue swelling. SUBGLOTTIC AREA: Normal. No narrowing. RETROPHARYNGEAL SPACE: Normal. No soft tissue masses. BONES: No significant findings. LUNG APICES: Normal. OTHER: Tracheostomy tube is present. IMPRESSION: Tracheostomy tube. No acute findings in the neck. TECHNICAL DOCUMENTATION: JOB ID: [id number] [employer]- All Rights Reserved Reading location - IP/workstation name: [email or web address]
--- NOTE | 2017-11-25 20:08 | RADIOLOGY REPORT (SQ) ---
EXAM DESCRIPTION: CHEST SINGLE VIEW COMPLETED DATE/TIME: 11/25/2017 7:47 pm REASON FOR STUDY: cough, sob COMPARISON: 08/27/2017 EXAM PARAMETERS: NUMBER OF VIEWS: One view. TECHNIQUE: Single frontal radiographic view of the chest acquired. RADIATION DOSE: NA LIMITATIONS: None. FINDINGS: LUNGS AND PLEURA: Atelectatic changes in the lower lobes. No acute infiltrates. No pleur al effusion or mass. MEDIASTINUM AND HILAR STRUCTURES: No masses. Contour normal. HEART AND VASCULAR STRUCTURES: Cardiomegaly. No pulmonary edema. BONES: No acute findings. HARDWARE: None in the chest. OTHER: No other significant finding. IMPRESSION: Subsegmental atelectasis. Cardiomegaly without CHF. TECHNICAL DOCUMENTATION: JOB ID: [id number] [employer]- All Rights Reserved Reading location - IP/workstation name: [email or web address]
[2017-11-25 22:05] VITALS: BP 121/91
== END 2017-11-25 21:15 | disposition home or self-care (01) ==
LOC: ER 17:09
DX: R06.00 Dyspnea, unspecified (principal); J95.00 Unspecified tracheostomy complication; R09.3 Abnormal sputum
CPT/HCPCS: 94640; 99285; 36415; 85025; 80048; 71045; 70360; J3490

== ENCOUNTER 2017-12-04 14:38 | Emergency (ER) | payer OTHER ==
[2017-12-04] MEDS ORDERED: IPRATROPIUM/ALBUTEROL 0.5-2.5 MG/3 ML AMPUL NEB ONE (14:58)
[2017-12-04] MEDS ORDERED: METHYLPREDNISOLONE INJ 125 MG/2 ML SDV IV ONE (14:58)
[2017-12-04] MEDS ORDERED: AZITHROMYCIN 250 MG TABLET PO ONE (14:58)
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
[2017-12-04] MEDS ORDERED: RACEPINEPHRINE HCL 2.25% NEB 0.5 ML AMPUL NEB ONE (15:39)
--- NOTE | 2017-12-04 16:19 | RADIOLOGY REPORT (SQ) ---
EXAM DESCRIPTION: CHEST SINGLE VIEW COMPLETED DATE/TIME: 12/04/2017 4:09 pm REASON FOR STUDY: sob COMPARISON: 11/25/2017 EXAM PARAMETERS: NUMBER OF VIEWS: One view. TECHNIQUE: Single frontal radiographic view of the chest acquired. RADIATION DOSE: NA LIMITATIONS: None. FINDINGS: LUNGS AND PLEURA: Roughly triangular-shaped opacity at the right cardiophrenic angle may r epresent lobar atelectasis. No focal consolidation. Likely small right-sided pleural effusion. No pneumothorax. MEDIASTINUM AND HILAR STRUCTURES: No masses. Contour normal. HEART AND VASCULAR STRUCTURES: Heart normal in size. Normal vasculature. BONES: No acute findings. HARDWARE: A tracheostomy sheath projects in the midline over the tracheal air shadow. OTHER: No other significant finding. IMPRESSION: Right cardiophrenic angle opacity may represent right middle lobar atelectasis. Conside r dedicated PA/Lat imaging when feasible. TECHNICAL DOCUMENTATION: JOB ID: [id number] [email or web address]- All Rights Reserved Reading location - IP/workstation name: [email or web address]
[2017-12-04 16:27] LABS: ABSOLUTE EOSINOPHILS # (AUTO) 0.1 10^3/uL (0.0-0.6); ABSOLUTE LYMPHOCYTES (AUTO) 1.7 10^3/uL (0.5-4.7); ABSOLUTE MONOCYTES (AUTO) 0.7 10^3/uL (0.1-1.4); ABSOLUTE NEUT (AUTO) 4.4 10^3/uL (1.7-8.2); BASOPHILS % (AUTO) 0.4 % (0-2); EOSINOPHILS % (AUTO) 1.1 % (0-6); HEMATOCRIT 39.3 % (37.9-51.0); HEMOGLOBIN 13.3 g/dL (13.5-17.0); MEAN CORPUSCULAR HEMOGLOBIN 29.5 pg (27.0-33.4); MEAN CORPUSCULAR HGB CONC 33.8 g/dL (32.0-36.0); MEAN CORPUSCULAR VOLUME 87 fl (80-97); MONOCYTES % (AUTO) 10.6 % (3-13); PLATELET COUNT 153 10^3/uL (150-450); RED CELL DISTRIBUTION WIDTH 14.8 % (11.5-14.0); SEGMENTED NEUTROPHILS % (AUTO) 63.9 % (42-78); TOTAL CELLS COUNTED % (AUTO) 100 %; VENOUS BLOOD HCO3 27.1 mmol/L (20-32); VENOUS BLOOD PCO2 44.2 mmHg (35-63); VENOUS BLOOD PH 7.41 (7.30-7.42); WHITE BLOOD COUNT 6.9 10^3/uL (4.0-10.5)
[2017-12-04 17:01] LABS: NT PRO BNP 54 pg/mL (5-900)
[2017-12-04 17:04] LABS: TROPONIN I < 0.012 ng/mL
[2017-12-04 17:05] LABS: ALANINE AMINOTRANSFERASE 20 U/L (21-72); ALKALINE PHOSPHATASE 113 U/L (38-126); ANION GAP 12 (5-19); ASPARTATE AMINO TRANSFERASE 33 U/L (17-59); BILIRUBIN,DIRECT 0.3 mg/dL (0.0-0.4); BILIRUBIN,TOTAL 0.3 mg/dL (0.2-1.3); BLOOD UREA NITROGEN 14 mg/dL (7-20); CALCIUM 8.9 mg/dL (8.4-10.2); CARBON DIOXIDE 27 mmol/L (22-30); CHLORIDE 101 mmol/L (98-107); GLUCOSE 147 mg/dL (75-110); POTASSIUM 4.3 mmol/L (3.6-5.0); SODIUM 139.7 mmol/L (137-145); TOTAL PROTEIN 7.8 g/dL (6.3-8.2)
[2017-12-04 18:30] VITALS: BP 117/77
--- NOTE | 2017-12-04 19:01 | RADIOLOGY REPORT (SQ) ---
EXAM DESCRIPTION: CHEST 2 VIEWS COMPLETED DATE/TIME: 12/04/2017 6:41 pm REASON FOR STUDY: abnormal portable (acute vs chronic RML) COMPARISON: 11/25/2017 and 12/04/2017 EXAM PARAMETERS: NUMBER OF VIEWS: two views TECHNIQUE: Digital Frontal and Lateral radiographic views of the chest acquired. RADIATION DOSE: NA LIMITATIONS: none and 12/04/2017 FINDINGS: LUNGS AND PLEURA: Abnormal findings a frontal radiograph appear to be on the basis of a pr ominent cardiophrenic fat pad. No focal consolidation, pleural effusion, or pneumothorax. MEDIASTINUM AND HILAR STRUCTURES: No masses or contour abnormalities. HEART AND VASCULAR STRUCTURES: Heart normal size. No evidence for failure. BONES: No acute findings. HARDWARE: Tracheostomy sheath stable in position. OTHER: No other significant finding. IMPRESSION: NO ACUTE RADIOGRAPHIC FINDING IN THE CHEST. TECHNICAL DOCUMENTATION: JOB ID: [id number] [email or web address]- All Rights Reserved Reading location - IP/workstation name: [email or web address]
--- NOTE | 2017-12-04 20:44 | EKG REPORT ---
SEVERITY:- BORDERLINE ECG - SINUS RHYTHM BORDERLINE T ABNORMALITIES, INFERIOR LEADS : Confirmed by: Brad Piper 04-Dec-2017 20:43:34
== END 2017-12-04 19:11 | disposition home or self-care (01) ==
LOC: ER 14:38
DX: T54.3X1A Toxic effect of corrosive alkalis and alkali-like substances, accidental (unintentional), initial encounter (principal); Z93.0 Tracheostomy status; X58.XXXA Exposure to other specified factors, initial encounter; R06.00 Dyspnea, unspecified; I48.91 Unspecified atrial fibrillation; I50.9 Heart failure, unspecified; E78.00 Pure hypercholesterolemia, unspecified; I11.0 Hypertensive heart disease with heart failure; J44.9 Chronic obstructive pulmonary disease, unspecified; Z88.6 Allergy status to analgesic agent; Z91.013 Allergy to seafood; Z86.73 Personal history of transient ischemic attack (TIA), and cerebral infarction without residual deficits; Z87.442 Personal history of urinary calculi; Z86.19 Personal history of other infectious and parasitic diseases
CPT/HCPCS: 93005; 94640 ×2; 99285; 96374; 36415; 85025; 80053; 84484; 82803; 83880; 71046; 71045; 93010; J2930; J3490; J7620

== ENCOUNTER 2017-12-08 18:18 | Emergency (ER) | payer OTHER ==
[2017-12-08] MEDS ORDERED: IPRATROPIUM/ALBUTEROL 0.5-2.5 MG/3 ML AMPUL NEB ONE ×2 (18:31→21:08)
--- NOTE | 2017-12-08 18:32 | ER Document Report ---
ED Medical Screen (RME) - General Chief Complaint: Shortness Of Breath Stated Complaint: SHORT OF BREATH Time Seen by Provider: 12/08/17 18:30 Notes: 61 years old male with a history of COPD tracheostomy, presents today with wheezing and difficulty in breathing. TRAVEL OUTSIDE OF THE [place] IN LAST 30 DAYS: No - Related Data Allergies/Adverse Reactions: codeine [Codeine] Allergy (Severe, Verified 12/08/17 18:19) Facial swelling hydrocodone bitartrate [From Vicodin] Allergy (Severe, Verified 12/08/17 18:19) Anaphylaxis lisinopril Allergy (Severe, Verified 12/08/17 18:19) Anaphylaxis hydromorphone [From Dilaudid] Allergy (Verified 12/08/17 18:19) Difficulty breathing Iodine and Iodide Containing Produc Allergy (Verified 12/08/17 18:19) Anaphylaxis morphine Allergy (Verified 12/08/17 18:19) Itching oxycodone Allergy (Verified 12/08/17 18:19) Swelling of tongue shellfish derived Allergy (Verified 12/08/17 18:19) Anaphylaxis All Opioids Allergy (Uncoded 12/08/17 18:19) Swellling Past Medical History - Past Medical History Cardiac Medical History: Reports: Hx Atrial Fibrillation, Hx Congestive Heart Failure, Hx Hypercholesterolemia, Hx Hypertension, Hx Pulmonary Embolism Denies: Hx Coronary Artery Disease, Hx Heart Attack, Hx Peripheral Vascular Disease, Hx Heart Murmur Pulmonary Medical History: Reports: Hx Asthma, Hx COPD, Hx Pneumonia - 7 years ago, Hx Sleep Apnea - hx only, not a current problem, no CPAP, Hx Tuberculosis Denies: Hx Bronchitis, Hx Respiratory Failure Neurological Medical History: Reports: Hx Cerebrovascular Accident - Pt states no deficits. Denies: Hx Migraine, Hx Seizures Endocrine Medical History: Reports: Hx Diabetes Mellitus Type 2. Denies: Hx Graves' Disease, Hx Hyperthyroidism, Hx Hypothyroidism Renal/ Medical History: Reports: Hx Kidney Stones - 1981. Denies: Hx Benign Prostatic Hyperplasia, Hx End Stage Renal Disease, Hx Peritoneal Dialysis Malignancy Medical History: Denies Hx Lung Cancer GI Medical History: Reports: Hx Gastroesophageal Reflux Disease, Hx Hepatitis - Hep C, Hx Pancreatitis - 1988, Hx Ulcer. Denies: Hx Cirrhosis, Hx Crohn's Disease, Hx Hiatal Hernia, Hx Irritable Bowel, Hx Liver Failure, Hx Ulcerative Colitis Musculoskeltal Medical History: Reports Hx Arthritis - Back , Denies Hx Fibromyalgia, Denies Hx Multiple Sclerosis, Denies Hx Muscular Dystrophy, Reports Hx Musculoskeletal Deformity, Reports Hx Musculoskeletal Trauma Skin Medical History: Denies Hx Psoriasis Psychiatric Medical History: Denies: Hx Bipolar Disorder, Hx Dementia, Hx Depression, Hx Post Traumatic Stress Disorder, Hx Schizophrenia Traumatic Medical History: Reports: Hx Fractures, Hx Spine Fracture. Denies: Hx Traumatic Brain Injury Infectious Medical History: Reports: Hx Hepatitis - Hep C Past Surgical History: Reports: Hx Abdominal Surgery - Hernia repair, bowel resection, Hx Appendectomy, Hx Bowel Surgery - bowel resection 1988, Hx Herniorrhaphy, Hx Oral Surgery, Hx Orthopedic Surgery - Spinal fusion. Meniscus repair., Other - Tracheostomy on 05/19/2017. Denies: Hx Cholecystectomy, Hx Colostomy, Hx Coronary Artery Bypass Graft, Hx Gastric Bypass Surgery, Hx Pacemaker, Hx Tonsillectomy - Immunizations Immunizations up to date: Yes Hx Diphtheria, Pertussis, Tetanus Vaccination: Yes History of Influenza Vaccine for 01/2017 - 06/2017 Season: Yes Influenza Administration Date for 01/2017 - 06/2017 Season: 08/10/17 Physical Exam - Vital signs Vitals: Temp Pulse Resp BP Pulse Ox 98.4 F 91 22 H 109/63 98 12/08/17 18:24 12/08/17 18:24 12/08/17 18:24 12/08/17 18:24 12/08/17 18:24 Course - Vital Signs Vital signs: Temp Pulse Resp BP Pulse Ox 98.4 F 91 22 H 109/63 98 12/08/17 18:24 12/08/17 18:24 12/08/17 18:24 12/08/17 18:24 12/08/17 18:24 Doctor's Discharge - Discharge Referrals: FRANCES OSUNA MD [Primary Care Provider] - Follow up as needed
--- NOTE | 2017-12-08 18:52 | ER Document Report ---
ED General - General Chief Complaint: Shortness Of Breath Stated Complaint: SHORT OF BREATH Time Seen by Provider: 12/08/17 18:30 Mode of Arrival: Ambulatory Information source: Patient Notes: This is a 61-year-old man with a history of COPD, angioedema, anaphylaxis with respiratory failure and he has a chronic trach. Patient presents to the emergency room with shortness of breath, chest tightness, blood-tinged sputum via the trach. He denies fever. TRAVEL OUTSIDE OF THE [place] IN LAST 30 DAYS: No - HPI Onset: Last week Onset/Duration: Gradual Quality of pain: No pain Severity: None Pain Level: Denies Associated symptoms: Shortness of breath. denies: Chest pain, Fever Exacerbated by: Denies Relieved by: Denies Similar symptoms previously: Yes Recently seen / treated by doctor: Yes - Related Data Allergies/Adverse Reactions: codeine [Codeine] Allergy (Severe, Verified 12/08/17 18:19) Facial swelling hydrocodone bitartrate [From Vicodin] Allergy (Severe, Verified 12/08/17 18:19) Anaphylaxis lisinopril Allergy (Severe, Verified 12/08/17 18:19) Anaphylaxis hydromorphone [From Dilaudid] Allergy (Verified 12/08/17 18:19) Difficulty breathing Iodine and Iodide Containing Produc Allergy (Verified 12/08/17 18:19) Anaphylaxis morphine Allergy (Verified 12/08/17 18:19) Itching oxycodone Allergy (Verified 12/08/17 18:19) Swelling of tongue shellfish derived Allergy (Verified 12/08/17 18:19) Anaphylaxis All Opioids Allergy (Uncoded 12/08/17 18:19) Swellling Past Medical History - General Information source: Patient - Social History Smoking Status: Former Smoker Cigarette use (# per day): No Chew tobacco use (# tins/day): No Frequency of alcohol use: None Drug Abuse: None Lives with: Spouse/Significant other Family History: Arthritis, CAD - Mother and brother, CVA, DM, Hyperlipidemia, Hypertension, Malignancy Patient has suicidal ideation: No Patient has homicidal ideation: No - Past Medical History Cardiac Medical History: Reports: Hx Atrial Fibrillation, Hx Congestive Heart Failure, Hx Hypercholesterolemia, Hx Hypertension, Hx Pulmonary Embolism Denies: Hx Coronary Artery Disease, Hx Heart Attack, Hx Peripheral Vascular Disease, Hx Heart Murmur Pulmonary Medical History: Reports: Hx Asthma, Hx COPD, Hx Pneumonia - 7 years ago, Hx Sleep Apnea - hx only, not a current problem, no CPAP, Hx Tuberculosis Denies: Hx Bronchitis, Hx Respiratory Failure Neurological Medical History: Reports: Hx Cerebrovascular Accident - Pt states no deficits. Denies: Hx Migraine, Hx Seizures Endocrine Medical History: Reports: Hx Diabetes Mellitus Type 2. Denies: Hx Graves' Disease, Hx Hyperthyroidism, Hx Hypothyroidism Renal/ Medical History: Reports: Hx Kidney Stones - 1981. Denies: Hx Benign Prostatic Hyperplasia, Hx End Stage Renal Disease, Hx Peritoneal Dialysis Malignancy Medical History: Denies Hx Lung Cancer GI Medical History: Reports: Hx Gastroesophageal Reflux Disease, Hx Hepatitis - Hep C, Hx Pancreatitis - 1988, Hx Ulcer. Denies: Hx Cirrhosis, Hx Crohn's Disease, Hx Hiatal Hernia, Hx Irritable Bowel, Hx Liver Failure, Hx Ulcerative Colitis Musculoskeletal Medical History: Reports Hx Arthritis - Back , Denies Hx Fibromyalgia, Denies Hx Multiple Sclerosis, Denies Hx Muscular Dystrophy, Reports Hx Musculoskeletal Deformity, Reports Hx Musculoskeletal Trauma Skin Medical History: Denies Hx Psoriasis Psychiatric Medical History: Denies: Hx Bipolar Disorder, Hx Dementia, Hx Depression, Hx Post Traumatic Stress Disorder, Hx Schizophrenia Traumatic Medical History: Reports: Hx Fractures, Hx Spine Fracture. Denies: Hx Traumatic Brain Injury Infectious Medical History: Reports: Hx Hepatitis - Hep C Past Surgical History: Reports: Hx Abdominal Surgery - Hernia repair, bowel resection, Hx Appendectomy, Hx Bowel Surgery - bowel resection 1988, Hx Herniorrhaphy, Hx Oral Surgery, Hx Orthopedic Surgery - Spinal fusion. Meniscus repair., Other - Tracheostomy on 05/19/2017. Denies: Hx Cholecystectomy, Hx Colostomy, Hx Coronary Artery Bypass Graft, Hx Gastric Bypass Surgery, Hx Pacemaker, Hx Tonsillectomy - Immunizations Immunizations up to date: Yes Hx Diphtheria, Pertussis, Tetanus Vaccination: Yes Hx Pneumococcal Vaccination: 04/12/17 Review of Systems - Review of Systems Constitutional: denies: Chills, Fever EENT: No symptoms reported Cardiovascular: denies: Chest pain, Palpitations, Heart racing Respiratory: Cough, Short of breath, Wheezing Gastrointestinal: denies: Abdomen distended, Abdominal pain, Diarrhea Genitourinary: No symptoms reported Male Genitourinary: No symptoms reported Skin: See HPI Hematologic/Lymphatic: No symptoms reported Neurological/Psychological: No symptoms reported Physical Exam - Vital signs Vitals: Pulse Ox 95 12/08/17 18:21 Notes: Physical exam: GENERAL: 61-year-old man, alert and oriented 3, complains of shortness of breath. HEAD: Atraumatic, normocephalic. EYES: Pupils equal round and reactive to light, extraocular movements intact, sclera anicteric, conjunctiva are normal. ENT: TMs normal, nares patent, oropharynx clear without exudates. Moist mucous membranes. NECK: Normal range of motion, trach site has some discharge around the opening. No obvious cellulitis. It does appear that there is a small wound infection which the patient has had in the past around the trach site. LUNGS: Scattered wheezing bilaterally HEART: Regular rate and rhythm without murmurs, rubs or gallops. ABDOMEN: Soft, normoactive bowel sounds. No tenderness to palpation. No guarding, no rebound. No masses appreciated. EXTREMITIES: Normal range of motion, no pitting or edema. No clubbing or cyanosis. NEUROLOGICAL: Cranial nerves II through XII grossly intact. Normal speech, moving all extremities. PSYCH: Normal mood, normal affect. SKIN: Warm, Dry, normal turgor, no rashes or lesions noted. Course - Re-evaluation Re-evalutation: 12/08/17 23:08 Patient feels better after nebulizers, respiratory suctioning. He was observed in the ER for several hours and is done well. He prefers to go home. I have offered him admission but he wants to go. Note there is some reaction around his trach and he has had some site infections here before. I will give him some oral antibiotics. Ultimately, he requires a tube change which he is supposed to get this Wednesday (he has a appointment with the ENT doctor). 12/08/17 23:10 - Vital Signs Vital signs: Temp Pulse Resp BP Pulse Ox 98.4 F 91 21 H 108/83 97 12/08/17 23:06 12/08/17 18:24 12/08/17 23:06 12/08/17 23:06 12/08/17 23:06 - Laboratory Result Diagrams: 12/08/17 19:02 12/08/17 19:02 Laboratory results interpreted by me: 12/08/17 12/08/17 12/08/17 19:02 19:02 20:50 RBC 4.31 L Hgb 12.6 L Hct 37.5 L RDW 14.7 H Sodium 136.8 L Glucose 217 H Calcium 8.3 L ALT 18 L Urine Ascorbic Acid 40 H - Diagnostic Test Radiology reviewed: Image reviewed, Reports reviewed - CT shows no acute pneumonia - EKG Interpretation by Me Rate: Normal Rhythm: NSR Discharge - Discharge Clinical Impression: Acute exacerbation COPD Clinical Impression: (Ruled Out): COPD Condition: Stable Disposition: HOME, SELF-CARE
[2017-12-08] MEDS ORDERED: LIDOCAINE 0.5% INJ-PF (5 MG/ML) 50 ML SDV NEB ONE (18:53)
[2017-12-08 19:11] LABS: ABSOLUTE EOSINOPHILS # (AUTO) 0.1 10^3/uL (0.0-0.6); ABSOLUTE LYMPHOCYTES (AUTO) 1.8 10^3/uL (0.5-4.7); ABSOLUTE MONOCYTES (AUTO) 0.7 10^3/uL (0.1-1.4); ABSOLUTE NEUT (AUTO) 4.5 10^3/uL (1.7-8.2); BASOPHILS % (AUTO) 0.6 % (0-2); EOSINOPHILS % (AUTO) 1.3 % (0-6); HEMATOCRIT 37.5 % (37.9-51.0); HEMOGLOBIN 12.6 g/dL (13.5-17.0); LYMPHOCYTES % (AUTO) 25.4 % (13-45); MEAN CORPUSCULAR HEMOGLOBIN 29.1 pg (27.0-33.4); MEAN CORPUSCULAR HGB CONC 33.4 g/dL (32.0-36.0); MEAN CORPUSCULAR VOLUME 87 fl (80-97); MONOCYTES % (AUTO) 10.2 % (3-13); PLATELET COUNT 152 10^3/uL (150-450); RED BLOOD COUNT 4.31 10^6/uL (4.35-5.55); RED CELL DISTRIBUTION WIDTH 14.7 % (11.5-14.0); SEGMENTED NEUTROPHILS % (AUTO) 62.5 % (42-78); TOTAL CELLS COUNTED % (AUTO) 100 %; WHITE BLOOD COUNT 7.2 10^3/uL (4.0-10.5)
[2017-12-08 19:32] LABS: ALANINE AMINOTRANSFERASE 18 U/L (21-72); ALBUMIN 3.6 g/dL (3.5-5.0); ALKALINE PHOSPHATASE 105 U/L (38-126); ANION GAP 10 (5-19); ASPARTATE AMINO TRANSFERASE 46 U/L (17-59); BILIRUBIN,DIRECT 0.3 mg/dL (0.0-0.4); BILIRUBIN,TOTAL 0.3 mg/dL (0.2-1.3); BLOOD UREA NITROGEN 15 mg/dL (7-20); CALCIUM 8.3 mg/dL (8.4-10.2); CARBON DIOXIDE 27 mmol/L (22-30); CHLORIDE 100 mmol/L (98-107); CREATINE KINASE 111 U/L (55-170); GLUCOSE 217 mg/dL (75-110); POTASSIUM 4.3 mmol/L (3.6-5.0); SODIUM 136.8 mmol/L (137-145); TOTAL PROTEIN 7.1 g/dL (6.3-8.2)
[2017-12-08 19:44] LABS: CREATINE KINASE MB 1.83 ng/mL (<4.55); NT PRO BNP 43 pg/mL (5-900)
[2017-12-08 19:45] LABS: TROPONIN I < 0.012 ng/mL
--- NOTE | 2017-12-08 20:01 | RADIOLOGY REPORT (SQ) ---
EXAM DESCRIPTION: CHEST SINGLE VIEW COMPLETED DATE/TIME: 12/08/2017 7:08 pm REASON FOR STUDY: Shortness of breath COMPARISON: 12/04/2017 TECHNIQUE: Single frontal radiographic view of the chest acquired. NUMBER OF VIEWS: One view. LIMITATIONS: None. FINDINGS: LUNGS AND PLEURA: No pneumothorax. Left basilar consolidation - pleural effusion. MEDIASTINUM AND HILAR STRUCTURES: Stable. HEART AND VASCULAR STRUCTURES: Stable. BONES: No acute findings. HARDWARE: None in the chest. OTHER: No other significant finding. IMPRESSION: Left basilar consolidation - pleural effusion. TECHNICAL DOCUMENTATION: JOB ID: [id number] [id number] 2010 [employer]- All Rights Reserved Reading location - IP/workstation name: [facility]
[2017-12-08 20:59] LABS: APPEARANCE,URINE CLEAR; BILIRUBIN,URINE NEGATIVE (NEGATIVE); COLOR,URINE YELLOW; GLUCOSE, URINE NEGATIVE (NEGATIVE); KETONES,URINE NEGATIVE (NEGATIVE); LEUKOCYTE ESTERASE,URINE NEGATIVE (NEGATIVE); NITRITE,URINE NEGATIVE (NEGATIVE); PROTEIN,URINE NEGATIVE (NEGATIVE); URINE SPECIFIC GRAVITY 1.014; UROBILINOGEN,URINE NEGATIVE mg/dL (<2.0)
--- NOTE | 2017-12-08 22:33 | RADIOLOGY REPORT (SQ) ---
EXAM DESCRIPTION: CT CHEST WITHOUT COMPLETED DATE/TIME: 12/08/2017 10:13 pm REASON FOR STUDY: sob COMPARISON: 06/26/2017 TECHNIQUE: CT scan performed of the chest without intravenous contrast. Images reviewed with lung, soft tissue and bone windows. Reconstructed coronal and sagittal MPR images reviewed. All images st ored on PACS. All CT scanners at this facility use dose modulation, iterative reconstruction, and/or weight based d osing when appropriate to reduce radiation dose to as low as reasonably achievable (ALARA). [facility]: Dose Right [facility]: CareDose [facility]: Dose Right [facility]: Teradose 4D [facility]: [employer] RADIATION DOSE: CT Rad equipment meets quality standard of care and radiation dose reduction techniq ues were employed. CTDIvol: 20.6 mGy. DLP: 774 mGy-cm. mGy. LIMITATIONS: No technical limitations. FINDINGS: LUNGS AND PLEURA: No pneumothorax. Similar mild basilar subsegmental atelectasis -subpleu ral scarring. No pleural effusions. HILAR AND MEDIASTINAL STRUCTURES: No bulky nodes. No obvious aneurysm. HEART AND VASCULAR STRUCTURES: No aneurysm. No pericardial effusion. UPPER ABDOMEN: Adrenal nodularity. . Limited exam. THYROID AND OTHER SOFT TISSUES: No masses. No adenopathy. BONES: No significant finding. HARDWARE: Tracheostomy. OTHER: No other significant findings. IMPRESSION: No acute findings. Similar mild basilar subsegmental atelectasis -subpleural scarring. TECHNICAL DOCUMENTATION: JOB ID: [id number] [place]-72 Quality ID # [id number]: Final reports with documentation of one or more dose reduction techniques (e.g., Au tomated exposure control, adjustment of the mA and/or kV according to patient size, use of iterative reconstruction technique) 2010 [employer]- All Rights Reserved Reading location - IP/workstation name: [employer]
[2017-12-08] MEDS ORDERED: CEFTRIAXONE 1 GM/D5W RTU 1 GM/50 ML RTUPB IV ONE (22:48)
[2017-12-08] MEDS ORDERED: METHYLPREDNISOLONE INJ 125 MG/2 ML SDV IV ONE (22:50)
[2017-12-08] MEDS ORDERED: HYDRALAZINE HCL INJ/PF 20 MG/1 ML SDV IV PRN (22:52)
[2017-12-08] MEDS ORDERED: CHLORPHENIRAMINE MALEATE 4 MG TABLET PO ONE (22:52)
[2017-12-08] MEDS ORDERED: GUAIFENESIN SYRP 200 MG/10 ML UDC PO PRN (22:53)
[2017-12-08] MEDS ORDERED: ACETAMINOPHEN 325 MG TABLET PO PRN (22:53)
[2017-12-08] MEDS ORDERED: IPRATROPIUM/ALBUTEROL 0.5-2.5 MG/3 ML AMPUL NEB PRN (22:53)
[2017-12-08] MEDS ORDERED: LEVOFLOXACIN 750 MG/D5W RTU 750 MG/150 ML RTUPB IV ONE ×2 (23:00→23:35)
[2017-12-08] MEDS ORDERED: NORMAL SALINE 1000 ML 1,000 ML IV PRN (23:00)
[2017-12-08 23:25] VITALS: BP 108/83
[2017-12-08] MEDS ORDERED: APIXABAN 5 MG TABLET PO ONE (23:30)
[2017-12-08] MEDS ORDERED: CEFEPIME 2 GM/D5W RTU 2 GM/50 ML RTUPB IV ONE (23:30)
[2017-12-08] MEDS ORDERED: FLUTICASONE NASAL SPRAY 50 MCG/SPRY 120 SPRAY/16 GM NASL ONE (23:30)
[2017-12-09] MEDS ORDERED: IPRATROPIUM/ALBUTEROL 0.5-2.5 MG/3 ML AMPUL NEB SCH (02:00)
[2017-12-09] MEDS ORDERED: GABAPENTIN 100 MG CAPSULE PO SCH (06:00)
[2017-12-09] MEDS ORDERED: HEPARIN SOD (PORCINE) 5,000 UNIT/ML 1 ML SYRINGE SUBCUT SCH ×2 (06:00)
--- NOTE | 2017-12-09 07:42 | EKG REPORT ---
SEVERITY:- NORMAL ECG - SINUS RHYTHM : Confirmed by: Elias Arce MD 09-Dec-2017 07:42:08
[2017-12-09] MEDS ORDERED: METOPROLOL TARTRATE 50 MG TABLET PO SCH (10:00)
[2017-12-09] MEDS ORDERED: CEFEPIME 2 GM/D5W RTU 2 GM/50 ML RTUPB IV SCH (10:00)
[2017-12-09] MEDS ORDERED: AMLODIPINE BESYLATE 10 MG TABLET PO SCH (10:00)
[2017-12-09] MEDS ORDERED: FLUTICASONE NASAL SPRAY 50 MCG/SPRY 120 SPRAY/16 GM NASL SCH (10:00)
[2017-12-09] MEDS ORDERED: ASPIRIN 81 MG TABLET, ENT COATED PO SCH (10:00)
[2017-12-09] MEDS ORDERED: APIXABAN 5 MG TABLET PO SCH (10:00)
[2017-12-09] MEDS ORDERED: LEVOFLOXACIN 750 MG/D5W RTU 750 MG/150 ML RTUPB IV SCH (22:00)
[2017-12-09] MEDS ORDERED: AMITRIPTYLINE HCL 25 MG TABLET PO SCH (22:00)
[2017-12-09] MEDS ORDERED: INSULIN GLARGINE,HUM.REC.ANLOG 300 UNIT/3 ML INSULN.PEN SUBCUT SCH (22:00)
== END 2017-12-08 23:26 | disposition home or self-care (01) ==
LOC: ER 18:18 → UNDOADMIN 23:13 → EH 23:13 → UNDODISIN 12-09 00:01
DX: J44.1 Chronic obstructive pulmonary disease with (acute) exacerbation (principal); R06.02 Shortness of breath; R05 Cough; R06.2 Wheezing; R07.9 Chest pain, unspecified; Z87.891 Personal history of nicotine dependence; I10 Essential (primary) hypertension; E11.9 Type 2 diabetes mellitus without complications
CPT/HCPCS: 93005; 94640 ×2; 99285; 36415; 82553; 82550; 85025; 80053; 81001; 84484; 83880; 71045; 71250; 93010; J3490; J7620; J1815

== ENCOUNTER 2017-12-10 05:26 | Day surgery (SDC) | payer OTHER ==
[~2017-12-10 05:26] MED LIST: CEFAZOLIN SODIUM 2 GM in DEXTROSE 5%-WATER 100 ML IV SCH; RINGERS SOLUTION,LACTATED 1,000 ML IV PRN
[2017-12-10] MEDS ORDERED: ALBUTEROL SULFATE 0.083% NEB 2.5 MG/3 ML AMPUL NEB ONE (06:30)
[2017-12-10 06:36] LABS: INTERNATIONAL RATION (INR) 0.94; POTASSIUM 4.2 mmol/L (3.6-5.0)
[2017-12-10 06:37] LABS: PARTIAL THROMBOPLASTIN TIME 30.1 SEC (23.5-35.8)
[2017-12-10] MEDS ORDERED: MIDAZOLAM 2 MG/2 ML INJ ONE (06:56)
[2017-12-10] MEDS ORDERED: HYDROMORPHONE HCL INJ/PF 2 MG/ML AMPULE ONE (06:56)
[2017-12-10] MEDS ORDERED: EPHEDRINE SULFATE INJ 50 MG/1 ML AMPULE ONE (06:56)
[2017-12-10] MEDS ORDERED: PROPOFOL INJ 200 MG/20 ML VIAL IV ONE ×2 (06:57→07:26)
[2017-12-10] MEDS ORDERED: CEFAZOLIN 2 GM/D5W RTU 2 GM/50 ML RTUPB IV ONE (07:10)
[2017-12-10] MEDS ORDERED: BUPIVACAINE HCL 0.5%/EPI 1:200000 INJ 1.8 ML CARTRIDGE ONE (07:11)
[2017-12-10] MEDS ORDERED: FENTANYL CITRATE INJ/PF 100 MCG/2 ML AMPUL ONE (07:26)
[2017-12-10] MEDS ORDERED: DEXMEDETOMIDINE INJ 80 MCG/20 ML VIAL IV ONE (07:37)
[2017-12-10] MEDS ORDERED: PROMETHAZINE HCL INJ 25 MG/1 ML VIAL IV PRN ×3 (08:03→09:53)
[2017-12-10] MEDS ORDERED: ONDANSETRON HCL INJ/PF 4 MG/2 ML SDV IV PRN ×3 (08:03→09:53)
[2017-12-10] MEDS ORDERED: DIPHENHYDRAMINE HCL 50 MG/ML VIAL IV PRN (08:03)
[2017-12-10] MEDS ORDERED: FENTANYL CITRATE INJ/PF 100 MCG/2 ML AMPUL IV PRN ×3 (08:03)
[2017-12-10] MEDS ORDERED: HYDROCODONE/ACETAMINOPHEN 5-325 MG TABLET PO PRN (09:30)
[2017-12-10] MEDS ORDERED: ONDANSETRON 4 MG TAB.RAPDIS PO PRN (09:31)
[2017-12-10] MEDS ORDERED: RINGERS SOLUTION,LACTATED 1,000 ML IV PRN (09:53)
[2017-12-10] MEDS ORDERED: HYDROCOD/ACETAMIN 7.5-325 MG/15 ML ORAL SOLN UDCUP PO PRN (09:53)
[2017-12-10 13:43] VITALS: BP 106/78
--- NOTE | 2017-12-11 23:58 | OPERATIVE REPORT E ---
Operative Report NAME: SHANAE TSANG : 1955 AGE: 61Y DATE OF SURGERY: 12/10/2017 ROOM: PREOPERATIVE DIAGNOSES: 1. Angioneurotic edema. 2. Long-term tracheostomy. 3. Recurrent hemorrhaging from the tracheostomy site. 4. Granulation tissue at and within the tracheostomy site and tract. POSTOPERATIVE DIAGNOSIS: 1. Angioneurotic edema. 2. Long-term tracheostomy. 3. Recurrent hemorrhaging from the tracheostomy site. 4. Granulation tissue at and within the tracheostomy site and tract. OPERATION: 1. Flexible bronchoscopy and tracheal site/tract; flexible endoscopy as indicated. 2. Tracheostomy tube exchange. 3. Excision of granulation tissue with cautery. SURGEON: MIROSLAVA WINTERS D.O. ANESTHESIA: General anesthesia; Anesthesia staff was Thompson THOMSON. ESTIMATED BLOOD LOSS: 10 mL. FLUIDS: 1500 mL. COMPLICATIONS: None. DRAINS: None. SPONGE COUNTS: Verified. TISSUE REMOVED OR ALTERED: Materials forwarded as specimen: None. FINDINGS: 1. There was extensive granulation tissue present at the tracheostomy site/skin junction and within the tracheostomy tract itself, which was well established. 2. The original cuffed XLT Trach was still in place for a period of greater than 6 months. 3. The trachea, marilyn, and left and right mainstem bronchus were unremarkable in their overall appearance except for mild serosanguineous/mucus that was present, but there was no active bleeding present, which was confirmed as well as after saline irrigation was performed during bronchoscopy and suctioning. 4. The tracheostomy tube was removed, and at this point there was a very foul odor that was released along with granulation tissue and foul-smelling debris covering the tracheostomy tube, especially in the area of the cuff. INDICATIONS: This is a 61-year-old -[place] male who was seen and evaluated in the [facility]. The patient had been referred for evaluation by the Pulmonary Office and the [facility]. The patient is with history of angioneurotic edema and had suffered multiple episodes, being evaluated and managed in the emergency room setting, and then in May of 2017, during a difficult episode, the patient was taken to the main operating room with placement of an XLT tracheostomy at that time. Since that time, the patient has not had the tracheostomy tube exchanged to a cuffless Trach. The patient has had multiple episodes of foul-smelling discharge and complications from the tracheostomy and has been on multiple rounds of antibiotics and has been managed in the [facility] setting on multiple different occasions as well as at the Pulmonary Office. After extensive discussion with the patient and his , and clinic evaluation which included flexible fiberoptic endoscopy, recommendation and plan was for management in the main operating room with tracheostomy Janey exchange to a cuffless XLT Trach, flexible endoscopy, and excision of granulation tissue. The patient and his voiced an understanding and desired to proceed. The procedures and all of their risks and complications were discussed in detail with the patient. He voiced an understanding of the described surgical plan, agreed to proceed, and consent was obtained. PROCEDURE: The patient was taken to the main operating room and placed on the operating room table in the supine position. Appropriate monitors were placed. Using tracheostomy site and IV access, general anesthesia was induced. In a coordinated fashion with the Anesthesia staff, the tracheostomy site had been fitted with an adaptor and flexible fiberoptic endoscopy was first performed. Findings were as noted above. At this point, the tracheostomy tube was removed, and at this point there was a very foul odor that was released along with granulation tissue and foul-smelling debris covering the tracheostomy tube, especially in the area of the cuff. At this point, the patient underwent formal flexible bronchoscopy with findings as noted above. The bronchoscope was withdrawn. At this point, there was a 5.0 endotracheal tube placed in the tracheostomy site, and the patient was connected back to ventilation. At this point, the granulation tissue was addressed with bipolar electrocautery, and it was removed circumferentially from the tracheostomy site. Once complete, there was adequate hemostasis in this area. At this point, there was an XLT tracheostomy that was cuffless with inner diameter of 6 mm and outer diameter of 11 mm and overall length that was 95 mm, which was inserted through the tracheostomy site and tract without difficulty. At this point, the inner cannula was inserted and the ventilator surface was reconnected with endoscopy adaptor attached. At this point, flexible bronchoscopy was again performed, and findings were as noted above with mild bloody mucus/secretions present in the trachea and upper bronchi. There was normal saline irrigation that was performed and suctioned, and upon doing so multiple times with approximately 20 mL of irrigation used, there was reasonable clearance of bloody mucus/secretions, and it was confirmed that there was no active bleeding present. At this point, the flexible bronchoscope was withdrawn. The patient was returned back to the Anesthesia staff. The Trach collar was secured in place at the Trach plate. There was a tracheostomy site sponge dressing that was applied. The patient was then allowed to emerge from general anesthesia and was then transported to the Post-Anesthesia Recovery Unit in stable condition. There were no complications. DICTATING PHYSICIAN: MIROSLAVA WINTERS D.O. [id number] PHY#: [id number] ID: [id number] JOB#: [id number] ACCT: [id number] cc:MIROSLAVA WINTERS D.O. >
== END 2017-12-10 13:20 | disposition home or self-care (01) ==
LOC: OROUT 05:26
PROVIDERS: ATTEND Otolaryngology
DX: L92.9 Granulomatous disorder of the skin and subcutaneous tissue, unspecified (principal); J95.01 Hemorrhage from tracheostomy stoma; T78.3XXA Angioneurotic edema, initial encounter; T88.9XXA Complication of surgical and medical care, unspecified, initial encounter; Y83.9 Surgical procedure, unspecified as the cause of abnormal reaction of the patient, or of later complication, without mention of misadventure at the time of the procedure; I10 Essential (primary) hypertension; R06.02 Shortness of breath; J44.1 Chronic obstructive pulmonary disease with (acute) exacerbation; B19.20 Unspecified viral hepatitis C without hepatic coma; K21.9 Gastro-esophageal reflux disease without esophagitis; G47.30 Sleep apnea, unspecified; D69.6 Thrombocytopenia, unspecified; E11.9 Type 2 diabetes mellitus without complications; E66.9 Obesity, unspecified; M19.90 Unspecified osteoarthritis, unspecified site; F17.210 Nicotine dependence, cigarettes, uncomplicated; F14.10 Cocaine abuse, uncomplicated; Z86.711 Personal history of pulmonary embolism; Z99.81 Dependence on supplemental oxygen; Z79.51 Long term (current) use of inhaled steroids; Z79.4 Long term (current) use of insulin; Z79.891 Long term (current) use of opiate analgesic; Z79.01 Long term (current) use of anticoagulants; Z79.82 Long term (current) use of aspirin; Z79.84 Long term (current) use of oral hypoglycemic drugs; Z88.5 Allergy status to narcotic agent; Z88.6 Allergy status to analgesic agent
CPT/HCPCS: 36415; 82962; 82947; 84132; 85610; 85730; 94640; 31502; 31615; J2250; J3490 ×3; J3010; J0690; 320; J1170; J2704

== ENCOUNTER 2017-12-24 09:58 | Emergency (ER) | payer OTHER ==
[2017-12-24] MEDS ORDERED: IPRATROPIUM/ALBUTEROL 0.5-2.5 MG/3 ML AMPUL NEB ONE (10:10)
[2017-12-24] MEDS ORDERED: ASPIRIN 81 MG TABLET, CHEWABLE PO ONE (10:22)
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
[2017-12-24 10:38] LABS: ALANINE AMINOTRANSFERASE 17 U/L (21-72); ALBUMIN 4.1 g/dL (3.5-5.0); ALKALINE PHOSPHATASE 100 U/L (38-126); ANION GAP 11 (5-19); ASPARTATE AMINO TRANSFERASE 28 U/L (17-59); BILIRUBIN,DIRECT 0.4 mg/dL (0.0-0.4); BILIRUBIN,TOTAL 0.5 mg/dL (0.2-1.3); BLOOD UREA NITROGEN 14 mg/dL (7-20); CALCIUM 9.4 mg/dL (8.4-10.2); CARBON DIOXIDE 28 mmol/L (22-30); CHLORIDE 102 mmol/L (98-107); CREATINE KINASE 207 U/L (55-170); GLUCOSE 188 mg/dL (75-110); POTASSIUM 4.2 mmol/L (3.6-5.0); SODIUM 141.4 mmol/L (137-145)
[2017-12-24 10:52] LABS: TROPONIN I < 0.012 ng/mL
[2017-12-24 10:53] LABS: NT PRO BNP 67 pg/mL (5-900)
[2017-12-24 10:57] LABS: ABSOLUTE EOSINOPHILS # (AUTO) 0.1 10^3/uL (0.0-0.6); ABSOLUTE LYMPHOCYTES (AUTO) 1.6 10^3/uL (0.5-4.7); ABSOLUTE MONOCYTES (AUTO) 0.9 10^3/uL (0.1-1.4); ABSOLUTE NEUT (AUTO) 3.9 10^3/uL (1.7-8.2); BASOPHILS % (AUTO) 0.3 % (0-2); EOSINOPHILS % (AUTO) 1.1 % (0-6); HEMATOCRIT 40.1 % (37.9-51.0); HEMOGLOBIN 13.1 g/dL (13.5-17.0); LYMPHOCYTES % (AUTO) 24.9 % (13-45); MEAN CORPUSCULAR HGB CONC 32.7 g/dL (32.0-36.0); MEAN CORPUSCULAR VOLUME 89 fl (80-97); MONOCYTES % (AUTO) 13.6 % (3-13); PLATELET COUNT 141 10^3/uL (150-450); RED BLOOD COUNT 4.52 10^6/uL (4.35-5.55); RED CELL DISTRIBUTION WIDTH 15.1 % (11.5-14.0); SEGMENTED NEUTROPHILS % (AUTO) 60.1 % (42-78); TOTAL CELLS COUNTED % (AUTO) 100 %; WHITE BLOOD COUNT 6.6 10^3/uL (4.0-10.5)
--- NOTE | 2017-12-24 11:00 | RADIOLOGY REPORT (SQ) ---
EXAM DESCRIPTION: CHEST SINGLE VIEW COMPLETED DATE/TIME: 12/24/2017 10:45 am REASON FOR STUDY: chest pain/sob COMPARISON: 12/08/2017 NUMBER OF VIEWS: One view. TECHNIQUE: Single frontal radiographic view of the chest acquired. LIMITATIONS: None. FINDINGS: LUNGS AND PLEURA: No opacities, masses or pneumothorax. No pleural effusion. MEDIASTINUM AND HILAR STRUCTURES: No masses. Contour normal. HEART AND VASCULAR STRUCTURES: Heart enlarged without failure. Normal vasculature. BONES: No acute findings. HARDWARE: Tracheostomy tube in place. OTHER: No other significant finding. IMPRESSION: HEART ENLARGED WITHOUT FAILURE. NO OTHER SIGNIFICANT RADIOGRAPHIC FINDING IN THE CHEST. TECHNICAL DOCUMENTATION: JOB ID: [id number] [employer] All Rights Reserved Reading location - IP/workstation name: [email or web address]
[2017-12-24 11:03] LABS: CREATINE KINASE MB 2.36 ng/mL (<4.55)
[2017-12-24] MEDS ORDERED: METHYLPREDNISOLONE INJ 125 MG/2 ML SDV IV ONE (11:25)
[2017-12-24 12:06] VITALS: BP 93/58
--- NOTE | 2017-12-24 23:52 | EKG REPORT ---
SEVERITY:- ABNORMAL ECG - SINUS RHYTHM PROBABLE LEFT ATRIAL ABNORMALITY BORDERLINE T WAVE ABNORMALITIES BORDERLINE PROLONGED QT INTERVAL : Confirmed by: Brad Piper 24-Dec-2017 23:52:24
== END 2017-12-24 12:11 | disposition home or self-care (01) ==
LOC: ER 09:58
DX: J44.1 Chronic obstructive pulmonary disease with (acute) exacerbation (principal); R06.02 Shortness of breath; R07.9 Chest pain, unspecified; M79.602 Pain in left arm; I10 Essential (primary) hypertension; E11.9 Type 2 diabetes mellitus without complications; Z79.4 Long term (current) use of insulin; Z93.0 Tracheostomy status; Z88.5 Allergy status to narcotic agent; Z88.7 Allergy status to serum and vaccine; Z88.8 Allergy status to other drugs, medicaments and biological substances; Z87.892 Personal history of anaphylaxis; Z91.013 Allergy to seafood
CPT/HCPCS: 36415; 71045; 80053; 82550; 82553; 83880; 84484; 85025; 93005; 93010; 94640; 96374; 99291

== ENCOUNTER 2018-02-24 20:17 | Emergency (ER) | payer OTHER ==
[2018-02-24 21:19] LABS: ABSOLUTE EOSINOPHILS # (AUTO) 0.1 10^3/uL (0.0-0.6); ABSOLUTE LYMPHOCYTES (AUTO) 1.9 10^3/uL (0.5-4.7); ABSOLUTE MONOCYTES (AUTO) 0.7 10^3/uL (0.1-1.4); ABSOLUTE NEUT (AUTO) 5.3 10^3/uL (1.7-8.2); BASOPHILS % (AUTO) 0.5 % (0-2); EOSINOPHILS % (AUTO) 1.4 % (0-6); HEMATOCRIT 38.8 % (37.9-51.0); HEMOGLOBIN 12.8 g/dL (13.5-17.0); LYMPHOCYTES % (AUTO) 23.5 % (13-45); MEAN CORPUSCULAR HEMOGLOBIN 29.4 pg (27.0-33.4); MEAN CORPUSCULAR VOLUME 89 fl (80-97); MONOCYTES % (AUTO) 8.9 % (3-13); PLATELET COUNT 139 10^3/uL (150-450); RED BLOOD COUNT 4.34 10^6/uL (4.35-5.55); RED CELL DISTRIBUTION WIDTH 14.9 % (11.5-14.0); SEGMENTED NEUTROPHILS % (AUTO) 65.7 % (42-78); TOTAL CELLS COUNTED % (AUTO) 100 %
--- NOTE | 2018-02-24 21:24 | RADIOLOGY REPORT (SQ) ---
EXAM DESCRIPTION: XR CHEST 1 VIEW COMPLETED DATE/TME: 02/24/2018 00:00 CLINICAL HISTORY: 62 years, Male, difficulty breathing COMPARISON: EXAM DESCRIPTION: CLINICAL HISTORY: difficulty breathing COMPARISON: None. FINDINGS: Single view of the chest is submitted. Cardiac silhouette is enlarged. There is consolidation at the left lung base with a small left pleural effusion. Atelectasis is at the right lung base with a small region of right lung base consolidation. Tracheostomy is present. IMPRESSION: Left lung base consolidation. Small region of right lung base consolidation.
[2018-02-24] MEDS ORDERED: IPRATROPIUM/ALBUTEROL 0.5-2.5 MG/3 ML AMPUL NEB ONE (21:41)
[2018-02-24] MEDS ORDERED: DOXYCYCLINE HYCLATE 100 MG TABLET PO ONE (21:42)
[2018-02-24] MEDS ORDERED: PREDNISONE 20 MG TABLET PO ONE (21:42)
[2018-02-24 21:48] LABS: ALANINE AMINOTRANSFERASE 10 U/L (21-72); ALKALINE PHOSPHATASE 100 U/L (38-126); ANION GAP 11 (5-19); ASPARTATE AMINO TRANSFERASE 22 U/L (17-59); BILIRUBIN,DIRECT 0.4 mg/dL (0.0-0.4); BILIRUBIN,TOTAL 0.5 mg/dL (0.2-1.3); BLOOD UREA NITROGEN 24 mg/dL (7-20); CALCIUM 8.7 mg/dL (8.4-10.2); CARBON DIOXIDE 29 mmol/L (22-30); CHLORIDE 100 mmol/L (98-107); GLUCOSE 114 mg/dL (75-110); POTASSIUM 4.3 mmol/L (3.6-5.0); SODIUM 139.8 mmol/L (137-145); TOTAL PROTEIN 7.5 g/dL (6.3-8.2)
[2018-02-24 21:51] LABS: NT PRO BNP 39 pg/mL (5-900)
[2018-02-24 21:52] LABS: TROPONIN I < 0.012 ng/mL
[2018-02-24 22:14] VITALS: BP 114/69
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
--- NOTE | 2018-02-25 10:38 | EKG REPORT ---
SEVERITY:- BORDERLINE ECG - SINUS RHYTHM PROBABLE LEFT ATRIAL ABNORMALITY BORDERLINE PROLONGED QT INTERVAL : Confirmed by: Brad Piper 25-Feb-2018 10:37:30
== END 2018-02-24 22:56 | disposition home or self-care (01) ==
LOC: ER 20:17
DX: E66.2 Morbid (severe) obesity with alveolar hypoventilation (principal); J44.1 Chronic obstructive pulmonary disease with (acute) exacerbation; J18.9 Pneumonia, unspecified organism; R00.0 Tachycardia, unspecified; I48.91 Unspecified atrial fibrillation; I50.9 Heart failure, unspecified; E78.00 Pure hypercholesterolemia, unspecified; I11.0 Hypertensive heart disease with heart failure; Z88.6 Allergy status to analgesic agent; Z91.013 Allergy to seafood; Z86.19 Personal history of other infectious and parasitic diseases; Z86.711 Personal history of pulmonary embolism; Z98.1 Arthrodesis status
CPT/HCPCS: 93005; 94640; 99285; 36415; 85025; 80053; 84484; 83880; 71045; 93010; J7512; J7620

== ENCOUNTER 2018-02-28 18:54 | Emergency (ER) | payer OTHER ==
--- NOTE | 2018-02-28 21:08 | RADIOLOGY REPORT (SQ) ---
EXAM DESCRIPTION: XR CHEST 1 VIEW COMPLETED DATE/TME: 02/28/2018 19:43 CLINICAL HISTORY: 62 years Male shortness of breath COMPARISON: 02/24/2018. FINDINGS: Moderate cardiac enlargement. Tracheostomy tube in place. No pneumothorax. No central pulmonary vascular congestion or evidence of edema. Prominent soft tissue density along the right heart border and the left heart border likely related to prominent epicardial fat with some adjacent atelectasis as was noted on the CT examination 12/08/2017. Elevation the left hemidiaphragm. IMPRESSION: Elevation the left hemidiaphragm Moderate cardiac enlargement
[2018-02-28] MEDS ORDERED: IPRATROPIUM/ALBUTEROL 0.5-2.5 MG/3 ML AMPUL NEB ONE (21:21)
[2018-02-28 21:24] LABS: ABSOLUTE EOSINOPHILS # (AUTO) 0.1 10^3/uL (0.0-0.6); ABSOLUTE LYMPHOCYTES (AUTO) 2.5 10^3/uL (0.5-4.7); ABSOLUTE MONOCYTES (AUTO) 0.9 10^3/uL (0.1-1.4); ABSOLUTE NEUT (AUTO) 5.2 10^3/uL (1.7-8.2); BASOPHILS % (AUTO) 0.6 % (0-2); EOSINOPHILS % (AUTO) 1.3 % (0-6); HEMATOCRIT 38.1 % (37.9-51.0); HEMOGLOBIN 12.8 g/dL (13.5-17.0); LYMPHOCYTES % (AUTO) 28.2 % (13-45); MEAN CORPUSCULAR HEMOGLOBIN 29.7 pg (27.0-33.4); MEAN CORPUSCULAR HGB CONC 33.6 g/dL (32.0-36.0); MEAN CORPUSCULAR VOLUME 88 fl (80-97); MONOCYTES % (AUTO) 10.6 % (3-13); PLATELET COUNT 129 10^3/uL (150-450); RED BLOOD COUNT 4.31 10^6/uL (4.35-5.55); RED CELL DISTRIBUTION WIDTH 14.8 % (11.5-14.0); SEGMENTED NEUTROPHILS % (AUTO) 59.3 % (42-78); TOTAL CELLS COUNTED % (AUTO) 100 %; WHITE BLOOD COUNT 8.8 10^3/uL (4.0-10.5)
--- NOTE | 2018-02-28 21:28 | ER Document Report ---
ED General - General Chief Complaint: Chest Tightness Stated Complaint: SHORTNESS OF BREATH, CHEST TIGHTNESS Time Seen by Provider: 02/28/18 21:02 Mode of Arrival: Wheelchair Information source: Patient Notes: Patient is a 62-year-old male who presents with chief complaint of shortness of breath and chest pain. Patient has a tracheostomy in place. Patient reports earlier today he became lightheaded with associated shortness of breath, a squeezing chest pain in the middle of his chest and radiation down the left arm. Patient reports that his symptoms have been intermittent over the last several hours. Patient reports recent treatment for pneumonia. Patient denies any fevers. Patient reports his [facility] provider [facility]. TRAVEL OUTSIDE OF THE [place] IN LAST 30 DAYS: No - Related Data Allergies/Adverse Reactions: codeine [Codeine] Allergy (Severe, Verified 02/24/18 21:14) Facial swelling hydrocodone bitartrate [From Vicodin] Allergy (Severe, Verified 02/24/18 21:14) Anaphylaxis lisinopril Allergy (Severe, Verified 02/24/18 21:14) Anaphylaxis hydromorphone [From Dilaudid] Allergy (Verified 02/24/18 21:14) Difficulty breathing Iodine and Iodide Containing Produc Allergy (Verified 02/24/18 21:14) Anaphylaxis morphine Allergy (Verified 02/24/18 21:14) Itching oxycodone Allergy (Verified 02/24/18 21:14) Swelling of tongue shellfish derived Allergy (Verified 02/24/18 21:14) Anaphylaxis ppd converter Allergy (Severe, Uncoded 02/24/18 21:14) positive ppd All Opioids Allergy (Uncoded 02/24/18 21:14) Swellling Past Medical History - General Information source: Patient - Social History Smoking Status: Former Smoker Frequency of alcohol use: None Drug Abuse: None Family History: Arthritis, CAD - Mother and brother, CVA, DM, Hyperlipidemia, Hypertension, Malignancy - Past Medical History Cardiac Medical History: Reports: Hx Atrial Fibrillation, Hx Congestive Heart Failure, Hx Hypercholesterolemia, Hx Hypertension, Hx Pulmonary Embolism Denies: Hx Coronary Artery Disease, Hx Heart Attack, Hx Peripheral Vascular Disease, Hx Heart Murmur Pulmonary Medical History: Reports: Hx Asthma, Hx COPD, Hx Pneumonia - 7 years ago, Hx Sleep Apnea - hx only, not a current problem, no CPAP, Hx Tuberculosis Denies: Hx Bronchitis, Hx Respiratory Failure Neurological Medical History: Reports: Hx Cerebrovascular Accident - Pt states no deficits. Denies: Hx Migraine, Hx Seizures Endocrine Medical History: Reports: Hx Diabetes Mellitus Type 2. Denies: Hx Graves' Disease, Hx Hyperthyroidism, Hx Hypothyroidism Renal/ Medical History: Reports: Hx Kidney Stones - 1981. Denies: Hx Benign Prostatic Hyperplasia, Hx End Stage Renal Disease, Hx Peritoneal Dialysis Malignancy Medical History: Denies Hx Lung Cancer GI Medical History: Reports: Hx Gastroesophageal Reflux Disease, Hx Hepatitis - Hep C, Hx Pancreatitis - 1988, Hx Ulcer. Denies: Hx Cirrhosis, Hx Crohn's Disease, Hx Hiatal Hernia, Hx Irritable Bowel, Hx Liver Failure, Hx Ulcerative Colitis Musculoskeletal Medical History: Reports Hx Arthritis - Back , Denies Hx Fibromyalgia, Denies Hx Multiple Sclerosis, Denies Hx Muscular Dystrophy, Reports Hx Musculoskeletal Deformity, Reports Hx Musculoskeletal Trauma Skin Medical History: Denies Hx Psoriasis Psychiatric Medical History: Denies: Hx Bipolar Disorder, Hx Dementia, Hx Depression, Hx Post Traumatic Stress Disorder, Hx Schizophrenia Traumatic Medical History: Reports: Hx Fractures, Hx Spine Fracture. Denies: Hx Traumatic Brain Injury Infectious Medical History: Reports: Hx Hepatitis - Hep C Past Surgical History: Reports: Hx Abdominal Surgery - Hernia repair, bowel resection, Hx Appendectomy, Hx Bowel Surgery - bowel resection 1988, Hx Herniorrhaphy, Hx Oral Surgery, Hx Orthopedic Surgery - Spinal fusion. Meniscus repair., Other - Tracheostomy on 05/19/2017. Denies: Hx Cholecystectomy, Hx Colostomy, Hx Coronary Artery Bypass Graft, Hx Gastric Bypass Surgery, Hx Pacemaker, Hx Tonsillectomy - Immunizations Immunizations up to date: Yes Hx Diphtheria, Pertussis, Tetanus Vaccination: Yes Hx Pneumococcal Vaccination: 04/12/17 Review of Systems - Review of Systems Cardiovascular: Chest pain, Dyspnea, Lightheaded Respiratory: Cough, Short of breath -: Yes All other systems reviewed and negative Physical Exam - Vital signs Vitals: Temp Pulse Resp BP Pulse Ox 98.4 F 88 16 97/63 L 93 02/28/18 19:18 02/28/18 19:18 02/28/18 19:18 02/28/18 19:18 02/28/18 19:18 - Notes Notes: PHYSICAL EXAMINATION: GENERAL: Well-appearing, well-nourished and in no acute distress. HEAD: Atraumatic, normocephalic. EYES: Pupils equal round and reactive to light, extraocular movements intact, sclera anicteric, conjunctiva are normal. ENT: Nares patent, oropharynx clear without exudates. Moist mucous membranes. NECK: Normal range of motion, supple without lymphadenopathy, tracheostomy in place. LUNGS: Breath sounds clear to auscultation bilaterally and equal. No wheezes rales or rhonchi. HEART: Regular rate and rhythm without murmurs ABDOMEN: Soft, nontender, nondistended abdomen. No guarding, no rebound. No masses appreciated. Musculoskeletal: Normal range of motion, no pitting or edema. No cyanosis. NEUROLOGICAL: Cranial nerves grossly intact. Normal speech, normal gait. Normal sensory, motor exams PSYCH: Normal mood, normal affect. SKIN: Warm, Dry, normal turgor, no rashes or lesions noted. Course - Re-evaluation Re-evalutation: Physical examination is unremarkable. Patient states that he feels like he needs a breathing treatment. Patient's lungs are clear to auscultation bilaterally. DuoNeb will be ordered. Patient also requesting that I have respiratory come and deep suction his trach. Pending lab workup. Respiratory came to bedside and deep suction the patient's tracheostomy. Patient reports that he feels much better. CBC, CMP and cardiac enzymes are unremarkable. EKG is unchanged from previous. Chest x-ray shows mild cardiac enlargement however this is also unchanged from previous chest CT done in December. Patient has not had any chest pain since arrival to the emergency department. He continues to state that he feels better since he had the DuoNeb and his tracheostomy was suctioned. Vital signs have been stable. Patient declines to stay to have a repeat troponin done. Patient will be discharged home in stable condition. Strict ED return precautions given. - Vital Signs Vital signs: Temp Pulse Resp BP Pulse Ox 98.2 F 88 18 90/72 L 97 02/28/18 22:55 02/28/18 19:18 02/28/18 22:55 02/28/18 22:55 02/28/18 22:01 - Laboratory Result Diagrams: 02/28/18 21:12 02/28/18 21:12 Laboratory results interpreted by me: 02/28/18 02/28/18 21:12 21:12 RBC 4.31 L Hgb 12.8 L RDW 14.8 H Plt Count 129 L Glucose 136 H AST 12 L ALT 10 L Discharge - Discharge Clinical Impression: Shortness of breath Chest pain Qualifiers: Chest pain type: unspecified Qualified Code(s): R07.9 - Chest pain, unspecified Condition: Stable Disposition: HOME, SELF-CARE Additional Instructions: Chest Pain of Unclear Cause The exact cause of your chest pain isn't clear. Fortunately, there is no evidence of a dangerous medical condition. Further testing may be required to find the source of the pain. Most often, we find that this pain is coming from the chest wall -- the muscles or rib joints in the chest. But chest pain can come from the lung and lung lining, the esophagus, the heart valves or heart lining, and even the stomach or gallbladder. Rest. Eat lightly until the pain is gone. We may prescribe medicine for pain and inflammation. You should call the physician immediately if the pain radiates to the shoulder, jaw or arms; if you start to run a fever or develop a cough; or if you develop shortness of breath, or other new or alarming symptoms. I was unable to find an exact cause for your shortness of breath or chest pain today you have declined to stay for a repeat troponin. There is no way that I can guarantee her not having a heart attack without having a repeat troponin. Your initial troponin was normal today. Please have a low threshold to present back to the emergency department if you develop additional chest pain, shortness of breath or any other symptom that is concerning to you. Referrals: FRANCES OSUNA MD [Primary Care Provider] - Follow up as needed
[2018-02-28 21:46] LABS: ALANINE AMINOTRANSFERASE 10 U/L (21-72); ALBUMIN 3.7 g/dL (3.5-5.0); ALKALINE PHOSPHATASE 95 U/L (38-126); ANION GAP 13 (5-19); ASPARTATE AMINO TRANSFERASE 12 U/L (17-59); BILIRUBIN,DIRECT 0.3 mg/dL (0.0-0.4); BILIRUBIN,TOTAL 0.3 mg/dL (0.2-1.3); BLOOD UREA NITROGEN 19 mg/dL (7-20); CALCIUM 9.2 mg/dL (8.4-10.2); CARBON DIOXIDE 28 mmol/L (22-30); CHLORIDE 99 mmol/L (98-107); CREATINE KINASE 124 U/L (55-170); GLUCOSE 136 mg/dL (75-110); POTASSIUM 3.9 mmol/L (3.6-5.0); SODIUM 139.8 mmol/L (137-145); TOTAL PROTEIN 6.8 g/dL (6.3-8.2)
--- NOTE | 2018-02-28 21:54 | EKG REPORT ---
SEVERITY:- BORDERLINE ECG - SINUS RHYTHM BORDERLINE T ABNORMALITIES, INFERIOR LEADS : Confirmed by: Dee Dee Ahmadi MD 28-Feb-2018 21:54:38
[2018-02-28 21:56] LABS: CREATINE KINASE MB 1.99 ng/mL (<4.55); NT PRO BNP 81 pg/mL (5-900)
[2018-02-28 21:58] LABS: TROPONIN I < 0.012 ng/mL
[2018-02-28 23:20] VITALS: BP 90/72
== END 2018-02-28 23:20 | disposition home or self-care (01) ==
LOC: ER 18:54
DX: R07.9 Chest pain, unspecified (principal); R06.02 Shortness of breath; R42 Dizziness and giddiness; Z93.0 Tracheostomy status; M79.602 Pain in left arm; Z87.891 Personal history of nicotine dependence; I48.91 Unspecified atrial fibrillation; I10 Essential (primary) hypertension; J44.9 Chronic obstructive pulmonary disease, unspecified; E11.9 Type 2 diabetes mellitus without complications
CPT/HCPCS: 93005; 94640; 99285; 36415; 82553; 82550; 85025; 80053; 84484; 83880; 71045; 93010; J7620

== ENCOUNTER 2018-06-19 05:41 | Emergency (ER) | payer OTHER ==
[2018-06-19] MEDS ORDERED: IPRATROPIUM/ALBUTEROL 0.5-2.5 MG/3 ML AMPUL NEB ONE (06:22)
[2018-06-19] MEDS ORDERED: LIDOCAINE 1% INJ-PF (10 MG/ML) 30 ML SDV NEB ONE (06:22)
--- NOTE | 2018-06-19 06:26 | ER Document Report ---
ED General - General Chief Complaint: Other Stated Complaint: OTHER Time Seen by Provider: 06/19/18 06:13 Primary Care Provider: FRANCES OSUNA MD [Primary Care Provider] - Follow up as needed TRAVEL OUTSIDE OF THE [place] IN LAST 30 DAYS: No - HPI Patient complains to provider of: Coughing up blood bleeding around trach Notes: Patient coming in for evaluation of coughing up blood bleeding around his tracheostomy site. Patient has tracheostomy due to difficult intubation and angioedema. Patient upon my evaluation is resting healthily. Patient states he woke up this morning cough states blood when everywhere. Patient states no increased secretions since that time. Patient otherwise is resting comfortably at this time not requiring supplemental oxygen looks to be in no obvious distress. Patient states mild shortness of breath. Patient denies any fevers chills nausea vomiting diarrhea denies any chest pain. Denies any trauma. Patient is followed up with Dr. Marvin for his tracheostomy care - Related Data Allergies/Adverse Reactions: codeine [Codeine] Allergy (Severe, Verified 02/24/18 21:14) Facial swelling hydrocodone bitartrate [From Vicodin] Allergy (Severe, Verified 02/24/18 21:14) Anaphylaxis lisinopril Allergy (Severe, Verified 02/24/18 21:14) Anaphylaxis hydromorphone [From Dilaudid] Allergy (Verified 02/24/18 21:14) Difficulty breathing Iodine and Iodide Containing Produc Allergy (Verified 02/24/18 21:14) Anaphylaxis morphine Allergy (Verified 02/24/18 21:14) Itching oxycodone Allergy (Verified 02/24/18 21:14) Swelling of tongue shellfish derived Allergy (Verified 02/24/18 21:14) Anaphylaxis ppd converter Allergy (Severe, Uncoded 02/24/18 21:14) positive ppd All Opioids Allergy (Uncoded 02/24/18 21:14) Swellling Past Medical History - Social History Smoking Status: Former Smoker Chew tobacco use (# tins/day): No Frequency of alcohol use: None Drug Abuse: None Family History: Arthritis, CAD - Mother and brother, CVA, DM, Hyperlipidemia, Hypertension, Malignancy Patient has suicidal ideation: No Patient has homicidal ideation: No - Past Medical History Cardiac Medical History: Reports: Hx Atrial Fibrillation, Hx Congestive Heart Failure, Hx Hypercholesterolemia, Hx Hypertension, Hx Pulmonary Embolism Denies: Hx Coronary Artery Disease, Hx Heart Attack, Hx Peripheral Vascular Disease, Hx Heart Murmur Pulmonary Medical History: Reports: Hx Asthma, Hx COPD, Hx Pneumonia - 7 years ago, Hx Sleep Apnea - hx only, not a current problem, no CPAP, Hx Tuberculosis Denies: Hx Bronchitis, Hx Respiratory Failure Neurological Medical History: Reports: Hx Cerebrovascular Accident - Pt states no deficits. Denies: Hx Migraine, Hx Seizures Endocrine Medical History: Reports: Hx Diabetes Mellitus Type 2. Denies: Hx Graves' Disease, Hx Hyperthyroidism, Hx Hypothyroidism Renal/ Medical History: Reports: Hx Kidney Stones - 1981. Denies: Hx Benign Prostatic Hyperplasia, Hx End Stage Renal Disease, Hx Peritoneal Dialysis Malignancy Medical History: Denies Hx Lung Cancer GI Medical History: Reports: Hx Gastroesophageal Reflux Disease, Hx Hepatitis - Hep C, Hx Pancreatitis - 1988, Hx Ulcer. Denies: Hx Cirrhosis, Hx Crohn's Disease, Hx Hiatal Hernia, Hx Irritable Bowel, Hx Liver Failure, Hx Ulcerative Colitis Musculoskeletal Medical History: Reports Hx Arthritis - Back , Denies Hx Fibromyalgia, Denies Hx Multiple Sclerosis, Denies Hx Muscular Dystrophy, Reports Hx Musculoskeletal Deformity, Reports Hx Musculoskeletal Trauma Skin Medical History: Denies Hx Psoriasis Psychiatric Medical History: Denies: Hx Bipolar Disorder, Hx Dementia, Hx Depression, Hx Post Traumatic Stress Disorder, Hx Schizophrenia Traumatic Medical History: Reports: Hx Fractures, Hx Spine Fracture. Denies: Hx Traumatic Brain Injury Infectious Medical History: Reports: Hx Hepatitis - Hep C Past Surgical History: Reports: Hx Abdominal Surgery - Hernia repair, bowel resection, Hx Appendectomy, Hx Bowel Surgery - bowel resection 1988, Hx Herniorrhaphy, Hx Oral Surgery, Hx Orthopedic Surgery - Spinal fusion. Meniscus repair., Other - Tracheostomy on 05/19/2017. Denies: Hx Cholecystectomy, Hx Colostomy, Hx Coronary Artery Bypass Graft, Hx Gastric Bypass Surgery, Hx Pacemaker, Hx Tonsillectomy - Immunizations Immunizations up to date: Yes Hx Diphtheria, Pertussis, Tetanus Vaccination: Yes Hx Pneumococcal Vaccination: 04/12/17 Review of Systems - Review of Systems Constitutional: No symptoms reported EENT: No symptoms reported Cardiovascular: No symptoms reported Respiratory: Cough Gastrointestinal: No symptoms reported Genitourinary: No symptoms reported Male Genitourinary: No symptoms reported Musculoskeletal: No symptoms reported Skin: No symptoms reported Hematologic/Lymphatic: No symptoms reported Neurological/Psychological: No symptoms reported -: Yes All other systems reviewed and negative Physical Exam - Vital signs Vitals: Resp 15 06/19/18 05:46 Interpretation: Normal - General General appearance: Appears well, Alert - HEENT Head: Normocephalic, Atraumatic Eyes: Normal Pupils: PERRL Notes: Tracheostomy stoma visualized there is good granulation tissue no signs of redness or infection no purulent drainage. - Respiratory Respiratory status: No respiratory distress Chest status: Nontender Breath sounds: Normal Chest palpation: Normal - Cardiovascular Rhythm: Regular Heart sounds: Normal auscultation Murmur: No - Abdominal Inspection: Normal Distension: No distension Bowel sounds: Normal Tenderness: Nontender Organomegaly: No organomegaly - Back Back: Normal, Nontender - Extremities General upper extremity: Normal inspection, Nontender, Normal color, Normal ROM, Normal temperature General lower extremity: Normal inspection, Nontender, Normal color, Normal ROM, Normal temperature, Normal weight bearing. No: Bereket's sign - Neurological Neuro grossly intact: Yes Cognition: Normal Orientation: AAOx4 Juancarlos Coma Scale Eye Opening: Spontaneous [place] Coma Scale Verbal: Oriented [place] Coma Scale Motor: Obeys Commands Savanna Coma Scale Total: 15 Speech: Normal Motor strength normal: LUE, RUE, LLE, RLE Sensory: Normal - Psychological Associated symptoms: Normal affect, Normal mood - Skin Skin Temperature: Warm Skin Moisture: Dry Skin Color: Normal Course - Re-evaluation Re-evalutation: 06/19/18 10:33 5 signs remained stable here laboratory studies not show any acute pathology. Patient's x-rays also did not show any acute pathology. Patient was suctioned by our respiratory therapist team with minimal secretions return. Claims the patient would recommend humidified air do believe he has underlying inflammation causing possibly some slight hemoptysis. Patient agrees with this plan will be discharged home - Vital Signs Vital signs: Temp Pulse Resp BP Pulse Ox 98.1 F 20 121/68 99 06/19/18 08:59 06/19/18 09:00 06/19/18 08:59 06/19/18 09:00 - Laboratory Result Diagrams: 06/19/18 05:53 06/19/18 05:53 Laboratory results interpreted by me: 06/19/18 06/19/18 05:53 05:53 Hgb 12.8 L RDW 14.7 H Plt Count 119 L Chloride 97 L Carbon Dioxide 31 H Glucose 131 H Discharge - Discharge Clinical Impression: Increased tracheal secretions Disposition: HOME, SELF-CARE Additional Instructions: Your laboratory studies chest x-ray neck x-ray did not show any critical pathology at this time. I do believe you are having some irritation to your lung tissues causing the coughing up of the blood. I would highly recommend using a humidifier at home or humidified air at home. At this time do not see any need for an antibiotic. Please follow-up with your primary care physician. Return immediately if you develop a fever Referrals: FRANCES OSUNA MD [Primary Care Provider] - Follow up as needed
[2018-06-19 06:42] LABS: ABSOLUTE EOSINOPHILS # (AUTO) 0.1 10^3/uL (0.0-0.6); ABSOLUTE LYMPHOCYTES (AUTO) 1.6 10^3/uL (0.5-4.7); ABSOLUTE MONOCYTES (AUTO) 0.6 10^3/uL (0.1-1.4); ABSOLUTE NEUT (AUTO) 3.3 10^3/uL (1.7-8.2); BASOPHILS % (AUTO) 0.4 % (0-2); EOSINOPHILS % (AUTO) 1.5 % (0-6); HEMOGLOBIN 12.8 g/dL (13.5-17.0); LYMPHOCYTES % (AUTO) 28.6 % (13-45); MEAN CORPUSCULAR HEMOGLOBIN 29.2 pg (27.0-33.4); MEAN CORPUSCULAR HGB CONC 32.9 g/dL (32.0-36.0); MEAN CORPUSCULAR VOLUME 89 fl (80-97); MONOCYTES % (AUTO) 10.5 % (3-13); PLATELET COUNT 119 10^3/uL (150-450); RED BLOOD COUNT 4.38 10^6/uL (4.35-5.55); RED CELL DISTRIBUTION WIDTH 14.7 % (11.5-14.0); TOTAL CELLS COUNTED % (AUTO) 100 %; WHITE BLOOD COUNT 5.7 10^3/uL (4.0-10.5)
[2018-06-19 06:47] LABS: ANION GAP 10 (5-19); BLOOD UREA NITROGEN 17 mg/dL (7-20); CARBON DIOXIDE 31 mmol/L (22-30); CHLORIDE 97 mmol/L (98-107); GLUCOSE 131 mg/dL (75-110); POTASSIUM 3.9 mmol/L (3.6-5.0); SODIUM 137.7 mmol/L (137-145)
--- NOTE | 2018-06-19 08:35 | RADIOLOGY REPORT (SQ) ---
EXAM: Three soft tissue neck CLINICAL DATA: Coughing up blood from trach TECHNICAL DATA: Two x-ray views of the soft tissues of the neck were performed on 06/19/2018 at 7:26 AM. FINDINGS: Comparison is from 11/25/2017 The adenoids appear normal without occlusion of the nasopharyngeal airway. The palatine tonsils are not enlarged. The epiglottis and aryepiglottic folds appear normal. The subglottic airway appears normal without symmetric or asymmetric edema. No debris is identified within the trachea. No foreign body is identified. No prevertebral soft tissue swelling is present. A tracheostomy cannula is present. There are mild degenerative changes of the cervical spine. There are marginal anterior osteophytes most pronounced at C4-C6. There are vascular calcifications along the neck bilaterally greater on the right. The lung apices are clear. IMPRESSION: Unremarkable soft tissue neck. No significant change when compared to the prior study. A tracheostomy cannula is again noted.
--- NOTE | 2018-06-19 08:38 | RADIOLOGY REPORT (SQ) ---
EXAM DESCRIPTION: X-ray two view chest. CLINICAL HISTORY: 62 years Male, coughing up blood from trach COMPARISON: Prior chest x-ray performed on 12/04/2017 CT chest performed on 12/08/2017. TECHNIQUE: PA and Lateral views of the chest performed on 06/19/2018 at 7:25 AM FINDINGS: The lungs are hyperinflated. There is persistent stable opacification in the right cardiophrenic sulcus which likely reflecting scarring and/or atelectasis. The costophrenic sulci are otherwise clear. There is no evidence of a pneumothorax. A tracheostomy cannula is present. The cardiac silhouette is stable and top normal in size. The mediastinal contours are normal. No acute osseous abnormalities are identified. There are mild degenerative changes of the thoracic spine. No focal soft tissue abnormalities are identified. IMPRESSION: 1. Stable scarring or atelectasis in the right cardiophrenic sulcus in the right middle lobe. 2. Stable tracheostomy cannula. 3. No definite acute intrathoracic disease.
[2018-06-19 09:04] VITALS: BP 121/68
== END 2018-06-19 09:09 | disposition home or self-care (01) ==
LOC: ER 05:41
DX: R05 Cough (principal); Z93.0 Tracheostomy status; R06.02 Shortness of breath; I48.91 Unspecified atrial fibrillation; I50.9 Heart failure, unspecified; E78.00 Pure hypercholesterolemia, unspecified; I11.0 Hypertensive heart disease with heart failure; J44.9 Chronic obstructive pulmonary disease, unspecified; Z88.8 Allergy status to other drugs, medicaments and biological substances; Z88.6 Allergy status to analgesic agent; Z91.013 Allergy to seafood; Z86.711 Personal history of pulmonary embolism; Z86.73 Personal history of transient ischemic attack (TIA), and cerebral infarction without residual deficits; Z87.442 Personal history of urinary calculi; Z98.1 Arthrodesis status
CPT/HCPCS: 94640; 99284; 36415; 85025; 80048; 71046; 70360; J3490; J7620

== ENCOUNTER 2018-06-20 12:19 | Emergency (ER) | payer OTHER ==
[2018-06-20] MEDS ORDERED: NORMAL SALINE 1000 ML 1,000 ML IV ONE (12:39)
[2018-06-20] MEDS ORDERED: ASPIRIN 81 MG TABLET, CHEWABLE PO ONE (12:39)
--- NOTE | 2018-06-20 13:31 | EKG REPORT ---
SEVERITY:- ABNORMAL ECG - SINUS RHYTHM PROBABLE LEFT ATRIAL ABNORMALITY CONSIDER POSTERIOR INFARCT BORDERLINE T ABNORMALITIES, INFERIOR LEADS : Confirmed by: Elias Arce MD 20-Jun-2018 13:30:30
[2018-06-20 13:34] LABS: ABSOLUTE EOSINOPHILS # (AUTO) 0.1 10^3/uL (0.0-0.6); ABSOLUTE LYMPHOCYTES (AUTO) 1.8 10^3/uL (0.5-4.7); ABSOLUTE MONOCYTES (AUTO) 0.6 10^3/uL (0.1-1.4); ABSOLUTE NEUT (AUTO) 3.7 10^3/uL (1.7-8.2); BASOPHILS % (AUTO) 0.6 % (0-2); EOSINOPHILS % (AUTO) 1.6 % (0-6); HEMATOCRIT 40.3 % (37.9-51.0); HEMOGLOBIN 13.4 g/dL (13.5-17.0); LYMPHOCYTES % (AUTO) 28.6 % (13-45); MEAN CORPUSCULAR HEMOGLOBIN 29.8 pg (27.0-33.4); MEAN CORPUSCULAR HGB CONC 33.3 g/dL (32.0-36.0); MEAN CORPUSCULAR VOLUME 89 fl (80-97); MONOCYTES % (AUTO) 9.7 % (3-13); PLATELET COUNT 133 10^3/uL (150-450); RED BLOOD COUNT 4.51 10^6/uL (4.35-5.55); RED CELL DISTRIBUTION WIDTH 14.9 % (11.5-14.0); SEGMENTED NEUTROPHILS % (AUTO) 59.5 % (42-78); TOTAL CELLS COUNTED % (AUTO) 100 %; WHITE BLOOD COUNT 6.1 10^3/uL (4.0-10.5)
[2018-06-20 13:52] LABS: INTERNATIONAL RATION (INR) 1.16; PROTHROMBIN TIME 15.4 SEC (11.4-15.4)
[2018-06-20 13:53] LABS: APPEARANCE,URINE CLEAR; BILIRUBIN,URINE NEGATIVE (NEGATIVE); COLOR,URINE STRAW; GLUCOSE, URINE NEGATIVE (NEGATIVE); KETONES,URINE NEGATIVE (NEGATIVE); LEUKOCYTE ESTERASE,URINE NEGATIVE (NEGATIVE); NITRITE,URINE NEGATIVE (NEGATIVE); PROTEIN,URINE NEGATIVE (NEGATIVE); URINE SPECIFIC GRAVITY 1.005; UROBILINOGEN,URINE NEGATIVE mg/dL (<2.0)
[2018-06-20 14:02] LABS: CREATINE KINASE MB 2.26 ng/mL (<4.55)
[2018-06-20 14:11] LABS: TROPONIN I < 0.012 ng/mL
[2018-06-20 14:18] LABS: URINE AMPHETAMINES SCREEN NEGATIVE; URINE BARBITURATES SCREEN NEGATIVE; URINE BENZODIAZEPINES SCREEN NEGATIVE; URINE COCAINE SCREEN NEGATIVE; URINE MARIJUANA (THC) SCREEN NEGATIVE; URINE METHADONE SCREEN NEGATIVE; URINE PHENCYCLIDINE SCREEN NEGATIVE
[2018-06-20 14:23] LABS: ALANINE AMINOTRANSFERASE 19 U/L (21-72); ALBUMIN 4.5 g/dL (3.5-5.0); ALKALINE PHOSPHATASE 93 U/L (38-126); ANION GAP 14 (5-19); ASPARTATE AMINO TRANSFERASE 31 U/L (17-59); BILIRUBIN,DIRECT 0.4 mg/dL (0.0-0.4); BILIRUBIN,TOTAL 0.6 mg/dL (0.2-1.3); BLOOD UREA NITROGEN 13 mg/dL (7-20); CARBON DIOXIDE 24 mmol/L (22-30); CHLORIDE 101 mmol/L (98-107); CREATINE KINASE 332 U/L (55-170); GLUCOSE 112 mg/dL (75-110); LIPASE 203.5 U/L (23-300); POTASSIUM 4.4 mmol/L (3.6-5.0); SODIUM 139.3 mmol/L (137-145); TOTAL PROTEIN 7.8 g/dL (6.3-8.2)
[2018-06-20] MEDS ORDERED: DIPHENHYDRAMINE HCL 50 MG/ML VIAL IV ONE (14:53)
[2018-06-20] MEDS ORDERED: METHYLPREDNISOLONE INJ 125 MG/2 ML SDV IV ONE (14:53)
--- NOTE | 2018-06-20 15:06 | RADIOLOGY REPORT (SQ) ---
EXAM DESCRIPTION: CTA CHEST COMPLETED DATE/TIME: 06/20/2018 2:52 pm REASON FOR STUDY: Hemoptysis chest pain COMPARISON: 12/08/2017 TECHNIQUE: CT scan of the chest performed using helical scanning technique with dynamic intravenous contrast injection. Images reviewed with lung, soft tissue and bone windows. Reconstructed coronal and sagittal MPR images reviewed. Additional 3 dimensional post-processing performed to develop Maximal Intensity Projection images (WI P). All images stored on PACS. All CT scanners at this facility use dose modulation, iterative reconstruction, and/or weight based d osing when appropriate to reduce radiation dose to as low as reasonably achievable (ALARA). [facility]: Dose Right [facility]: CareDose [facility]: Dose Right [facility]: Teradose 4D [facility]: [employer] CONTRAST TYPE AND DOSE: contrast/concentration: Isovue 350.00 mg/ml; Total Contrast Delivered: 90.0 ml; Total Saline Delivered: 90.0 ml Contrast bolus optimized for the pulmonary arteries. Not diagnostic for the aorta. RENAL FUNCTION: GFR > 60. RADIATION DOSE: CT Rad equipment meets quality standard of care and radiation dose reduction techniq ues were employed. CTDIvol: 18.9 - 39.7 mGy. DLP: 1939 mGy-cm. . LIMITATIONS: None. FINDINGS: LUNGS AND PLEURA: No masses, infiltrates, or pneumothorax. Bibasilar scarring or atelecta sis. No pleural effusions or pleural calcifications. Tracheostomy. AORTA AND GREAT VESSELS: No aneurysm. Contrast bolus not optimized for the aorta. HEART: No pericardial effusion. No significant coronary artery calcifications. PULMONARY ARTERIES: No emboli visualized in the main pulmonary arteries or the segmental branches. HILAR AND MEDIASTINAL STRUCTURES: No identified masses or abnormal nodes. HARDWARE: None in the chest. UPPER ABDOMEN: Bilateral adrenal nodules. THYROID AND OTHER SOFT TISSUES: No masses. No adenopathy. BONES: No acute or significant finding. 3D MIPS: Confirm above findings. OTHER: No other significant finding. IMPRESSION: Negative examination for pulmonary embolism. COMMENT: Quality ID # [id number]: Final reports with documentation of one or more dose reduction techniques (e.g., Automated exposure control, adjustment of the mA and/or kV according to patient size, use of iterative reconstruction technique) TECHNICAL DOCUMENTATION: JOB ID: [id number] [employer]- All Rights Reserved Reading location - IP/workstation name: [email or web address]
--- NOTE | 2018-06-20 15:10 | RADIOLOGY REPORT (SQ) ---
EXAM DESCRIPTION: CT SOFT TISSUE NECK WITH COMPLETED DATE/TIME: 06/20/2018 2:53 pm REASON FOR STUDY: Hemoptysis with a trach COMPARISON: None. TECHNIQUE: Post IV contrasted scanning from skull base through lung apices with review of bone, soft tissue and lung windows. Reconstructed coronal and sagittal MPR images reviewed. All images stored on PACS. All CT scanners at this facility use dose modulation, iterative reconstruction, and/or weight based d osing when appropriate to reduce radiation dose to as low as reasonably achievable (ALARA). [facility]: Dose Right [facility]: CareDose [facility]: Dose Right [facility]: Teradose 4D [facility]: [employer] CONTRAST TYPE AND DOSE: 90 mL Omnipaque 350 iodinated contrast IV RENAL FUNCTION: GFR > 60. RADIATION DOSE: 1939 mGy cm LIMITATIONS: None. FINDINGS: SKULL BASE: Intact. MAJOR SALIVARY GLANDS: No solid or cystic masses. No inflammatory changes. LYMPHADENOPATHY: No adenopathy. MUCOSAL MASSES OR ASYMMETRY: No mucosal masses or asymmetry. LARYNX/CORDS: No abnormal findings. VASCULAR STRUCTURES: The major vessels are patent. LUNG APICES: Clear. BONES: Intact. THYROID: Normal size. No masses. PARANASAL SINUSES: Clear. OTHER: Tracheostomy. IMPRESSION: Tracheostomy. No CT findings to explain hemoptysis. TECHNICAL DOCUMENTATION: JOB ID: [id number] Quality ID # [id number]: Final reports with documentation of one or more dose reduction techniques (e.g., Au tomated exposure control, adjustment of the mA and/or kV according to patient size, use of iterative reconstruction technique) 2010 [employer]- All Rights Reserved Reading location - IP/workstation name: [email or web address]
[2018-06-20] MEDS ORDERED: MAG HYDROX/AL HYDROX/SIMETH SUSP 30 ML UDCUP PO ONE (15:28)
[2018-06-20] MEDS ORDERED: LIDOCAINE 2% VISCOUS SOLN 20 ML UDCUP PO ONE (15:28)
[2018-06-20] MEDS ORDERED: METOCLOPRAMIDE HCL ORAL SOLN 10 MG/10 ML UDCUP PO ONE (15:28)
--- NOTE | 2018-06-20 17:16 | ER Document Report ---
ED General - General Chief Complaint: Chest Pain Stated Complaint: CHEST PAIN Time Seen by Provider: 06/20/18 12:39 TRAVEL OUTSIDE OF THE [place] IN LAST 30 DAYS: No - HPI Patient complains to provider of: Blood from trach chest pain Notes: Patient was evaluated by this provider 24 hours prior to this visit. Patient is coming in today for continued blood through his trach and chest pain. Patient states chest pain started this morning around 730. Patient states substernal chest pain. Patient denies any fever chills nausea vomiting diarrhea. Patient states when he recalls he continues to spit up blood. Patient denies any trauma. Patient otherwise resting company denies any smoking drinking or drug abuse. Denies any exacerbating or relieving factors. Patient is asking for something to eat - Related Data Allergies/Adverse Reactions: codeine [Codeine] Allergy (Severe, Verified 02/24/18 21:14) Facial swelling hydrocodone bitartrate [From Vicodin] Allergy (Severe, Verified 02/24/18 21:14) Anaphylaxis lisinopril Allergy (Severe, Verified 02/24/18 21:14) Anaphylaxis hydromorphone [From Dilaudid] Allergy (Verified 02/24/18 21:14) Difficulty breathing Iodine and Iodide Containing Produc Allergy (Verified 02/24/18 21:14) Anaphylaxis morphine Allergy (Verified 02/24/18 21:14) Itching oxycodone Allergy (Verified 02/24/18 21:14) Swelling of tongue ppd converter Allergy (Severe, Uncoded 02/24/18 21:14) positive ppd All Opioids Allergy (Uncoded 02/24/18 21:14) Swellling Past Medical History - Social History Smoking Status: Unknown if Ever Smoked Family History: Arthritis, CAD - Mother and brother, CVA, DM, Hyperlipidemia, Hypertension, Malignancy - Past Medical History Cardiac Medical History: Reports: Hx Atrial Fibrillation, Hx Congestive Heart Failure, Hx Hypercholesterolemia, Hx Hypertension, Hx Pulmonary Embolism Denies: Hx Coronary Artery Disease, Hx Heart Attack, Hx Peripheral Vascular Disease, Hx Heart Murmur Pulmonary Medical History: Reports: Hx Asthma, Hx COPD, Hx Pneumonia - 7 years ago, Hx Sleep Apnea - hx only, not a current problem, no CPAP, Hx Tuberculosis Denies: Hx Bronchitis, Hx Respiratory Failure Neurological Medical History: Reports: Hx Cerebrovascular Accident - Pt states no deficits. Denies: Hx Migraine, Hx Seizures Endocrine Medical History: Reports: Hx Diabetes Mellitus Type 2. Denies: Hx Graves' Disease, Hx Hyperthyroidism, Hx Hypothyroidism Renal/ Medical History: Reports: Hx Kidney Stones - 1981. Denies: Hx Benign Prostatic Hyperplasia, Hx End Stage Renal Disease, Hx Peritoneal Dialysis Malignancy Medical History: Denies Hx Lung Cancer GI Medical History: Reports: Hx Gastroesophageal Reflux Disease, Hx Hepatitis - Hep C, Hx Pancreatitis - 1988, Hx Ulcer. Denies: Hx Cirrhosis, Hx Crohn's Disease, Hx Hiatal Hernia, Hx Irritable Bowel, Hx Liver Failure, Hx Ulcerative Colitis Musculoskeletal Medical History: Reports Hx Arthritis - Back , Denies Hx Fibromyalgia, Denies Hx Multiple Sclerosis, Denies Hx Muscular Dystrophy, Reports Hx Musculoskeletal Deformity, Reports Hx Musculoskeletal Trauma Skin Medical History: Denies Hx Psoriasis Psychiatric Medical History: Denies: Hx Bipolar Disorder, Hx Dementia, Hx Depression, Hx Post Traumatic Stress Disorder, Hx Schizophrenia Traumatic Medical History: Reports: Hx Fractures, Hx Spine Fracture. Denies: Hx Traumatic Brain Injury Infectious Medical History: Reports: Hx Hepatitis - Hep C Past Surgical History: Reports: Hx Abdominal Surgery - Hernia repair, bowel resection, Hx Appendectomy, Hx Bowel Surgery - bowel resection 1988, Hx Herniorrhaphy, Hx Oral Surgery, Hx Orthopedic Surgery - Spinal fusion. Meniscus repair., Other - Tracheostomy on 05/19/2017. Denies: Hx Cholecystectomy, Hx Colostomy, Hx Coronary Artery Bypass Graft, Hx Gastric Bypass Surgery, Hx Pacemaker, Hx Tonsillectomy - Immunizations Immunizations up to date: Yes Hx Diphtheria, Pertussis, Tetanus Vaccination: Yes Hx Pneumococcal Vaccination: 04/12/17 Review of Systems - Review of Systems Constitutional: No symptoms reported EENT: Other - Blood from the trach Cardiovascular: Chest pain Respiratory: No symptoms reported Gastrointestinal: No symptoms reported Genitourinary: No symptoms reported Male Genitourinary: No symptoms reported Musculoskeletal: No symptoms reported Skin: No symptoms reported Hematologic/Lymphatic: No symptoms reported Neurological/Psychological: No symptoms reported -: Yes All other systems reviewed and negative Physical Exam - Vital signs Vitals: Temp Pulse Resp BP Pulse Ox 98.3 F 100 18 131/80 H 97 06/20/18 12:32 06/20/18 12:32 06/20/18 12:32 06/20/18 12:32 06/20/18 12:32 Interpretation: Normal - General General appearance: Appears well, Alert - HEENT Head: Normocephalic, Atraumatic Eyes: Normal Pupils: PERRL Notes: Tracheostomy is intact site does not have any active bleeding there is good granulation tissue around the trach - Respiratory Respiratory status: No respiratory distress Chest status: Nontender Breath sounds: Normal Chest palpation: Normal - Cardiovascular Rhythm: Regular Heart sounds: Normal auscultation Murmur: No - Abdominal Inspection: Normal Distension: No distension Bowel sounds: Normal Tenderness: Nontender Organomegaly: No organomegaly - Back Back: Normal, Nontender - Extremities General upper extremity: Normal inspection, Nontender, Normal color, Normal ROM, Normal temperature General lower extremity: Normal inspection, Nontender, Normal color, Normal ROM, Normal temperature, Normal weight bearing. No: Bereket's sign - Neurological Neuro grossly intact: Yes Cognition: Normal Orientation: AAOx4 [place] Coma Scale Eye Opening: Spontaneous [place] Coma Scale Verbal: Oriented [place] Coma Scale Motor: Obeys Commands [place] Coma Scale Total: 15 Speech: Normal Motor strength normal: LUE, RUE, LLE, RLE Sensory: Normal - Psychological Associated symptoms: Normal affect, Normal mood - Skin Skin Temperature: Warm Skin Moisture: Dry Skin Color: Normal Course - Re-evaluation Re-evalutation: 06/20/18 17:23 The patient has atypical chest pain as the patient's chest pain is not suggestive of pulmonary embolus, cardiac ischemia, aortic dissection, or other serious etiology. Given the extremely low risk of these diagnoses further testing and evaluation for these possibilities does not appear to be indicated at this time. The patient has been instructed to return if the symptoms worsen or change in any way. I did discuss the patient's case with Dr. Marvin ENT agrees at this time to continue with non-aggressive suctioning humidified air more likely irritation causing the bleeding that the patient continues to have bloody sputum. Patient has no massive hemoptysis from the trach while here in the ER. Patient was discharged home - Vital Signs Vital signs: Temp Pulse Resp BP Pulse Ox 98.3 F 100 22 H 106/69 100 06/20/18 12:32 06/20/18 12:32 06/20/18 15:01 06/20/18 15:01 06/20/18 15:01 - Laboratory Result Diagrams: 06/20/18 13:05 06/20/18 13:05 Laboratory results interpreted by me: 06/20/18 06/20/18 13:05 13:05 Hgb 13.4 L RDW 14.9 H Plt Count 133 L Glucose 112 H ALT 19 L Creatine Kinase 332 H Discharge - Discharge Clinical Impression: Increased tracheal secretions, Chest pain of uncertain etiology Condition: Good Disposition: HOME, SELF-CARE Instructions: Chest Wall Pain ([facility]), Chest Pain of Unclear Cause ([facility]), Reflux Disease (GERD) ([facility]) Additional Instructions: Discussed your findings with Dr. Marvin's office will call you. Please continue to use humidified air at home please avoid any aggressive suctioning through your trach. Your EKG and troponins do not show any acute pathology your CAT scans of your neck and of your chest today are negative for any acute pathology. I highly recommend following up also with your primary care physician. Please make sure you are taking all your medications as previously prescribed by your providers. Return to the ER for any other concerns.
[2018-06-20 17:55] VITALS: BP 102/71
== END 2018-06-20 17:56 | disposition home or self-care (01) ==
LOC: ER 12:19
DX: R07.89 Other chest pain (principal); R04.2 Hemoptysis; Z93.0 Tracheostomy status; I10 Essential (primary) hypertension; J44.9 Chronic obstructive pulmonary disease, unspecified; E11.9 Type 2 diabetes mellitus without complications; Z86.711 Personal history of pulmonary embolism; Z87.892 Personal history of anaphylaxis; Z88.5 Allergy status to narcotic agent; Z88.8 Allergy status to other drugs, medicaments and biological substances; Z88.7 Allergy status to serum and vaccine
CPT/HCPCS: 93005; 99285; 96361; 96374; 96375; 36415; 82553; 82550; 83690; 83735; 85025; 85610; 80053; 81001; 84484; 80307; 70491; 71275; 93010; J1200; J3490; J2930; J7030

== ENCOUNTER 2018-07-15 07:16 | Emergency (ER) | payer OTHER ==
[2018-07-15] MEDS ORDERED: IPRATROPIUM/ALBUTEROL 0.5-2.5 MG/3 ML AMPUL NEB ONE (07:36)
--- NOTE | 2018-07-15 07:36 | ER Document Report ---
ED General - General Chief Complaint: Respiratory Distress Stated Complaint: DIFFICULTY BREATHING Time Seen by Provider: 07/15/18 07:28 Primary Care Provider: MIROSLAVA WINTERS DO [ASSOCIATE] - Follow up in 3-5 days Notes: Patient is a 62-year-old male with history of tracheostomy, COPD and CHF that presents to the emergency department for chief complaint of dislodged Shiley. About 45 minutes prior to ED arrival, the patient's Shiley had come out for 5-10 minutes this morning, his was able to put it back into place, he has been feeling short of breath over the past 2 days as well though in addition to what happened to this morning. He denies having any associated chest pain, fevers, chills, night sweats. She reports she noticed a small amount of blood when she put it back into place, but did not have any continued bleeding he is not been coughing up any blood through the Shiley either. He is on Eliquis. He denies any nausea, vomiting, abdominal pain, diarrhea or urinary symptoms. Past Medical History: Diabetic nephropathy, COPD, history of PE, CHF, diabetes mellitus, hypertension Past Surgical History: Tracheostomy, appendectomy, total knee arthroplasty, back surgeries Social History: Former smoker, quit 10 years ago, denies alcohol or drug use. Family History: Reviewed and noncontributory for presenting illness Allergies: Reviewed, see documented allergy list. REVIEW OF SYSTEMS: Other than noted above, the 12 point review of systems was reviewed with the patient and were negative, all pertinent findings are included in the HPI. PHYSICAL EXAMINATION: Vital signs reviewed, nursing noted reviewed. GENERAL: Well-appearing, well-nourished and in no acute distress. HEAD: Atraumatic, normocephalic. EYES: Eyes appear normal, extraocular movements intact, sclera anicteric, conjunctiva are normal. ENT: nares patent, oropharynx clear without exudates. Moist mucous membranes. NECK: Normal range of motion, supple without lymphadenopathy, Shiley tracheostomy in place with collar, no blood from the stoma, appears to be patent. LUNGS: Diffuse expiratory wheezing noted throughout all lung kearney, without acute respiratory distress HEART: Regular rate and rhythm without murmurs ABDOMEN: Soft, nontender, normoactive bowel sounds. No rebound, guarding, or rigidity. No masses appreciated. EXTREMITIES: Trace bilateral lower extremity edema NEUROLOGICAL: No focal neurological deficits. Moves all extremities spontaneously Motor grossly intact distally, sensation somewhat decreased in the lower extremities, chronic per patient. PSYCH: Normal mood, normal affect. SKIN: Warm, Dry, normal turgor, no rashes or lesions noted on exposed skin TRAVEL OUTSIDE OF THE [place] IN LAST 30 DAYS: No - Related Data Allergies/Adverse Reactions: codeine [Codeine] Allergy (Severe, Verified 02/24/18 21:14) Facial swelling hydrocodone bitartrate [From Vicodin] Allergy (Severe, Verified 02/24/18 21:14) Anaphylaxis lisinopril Allergy (Severe, Verified 02/24/18 21:14) Anaphylaxis hydromorphone [From Dilaudid] Allergy (Verified 02/24/18 21:14) Difficulty breathing Iodine and Iodide Containing Produc Allergy (Verified 02/24/18 21:14) Anaphylaxis morphine Allergy (Verified 02/24/18 21:14) Itching oxycodone Allergy (Verified 02/24/18 21:14) Swelling of tongue ppd converter Allergy (Severe, Uncoded 02/24/18 21:14) positive ppd All Opioids Allergy (Uncoded 02/24/18 21:14) Swellling Past Medical History - Social History Smoking Status: Former Smoker Family History: Arthritis, CAD - Mother and brother, CVA, DM, Hyperlipidemia, Hypertension, Malignancy - Past Medical History Cardiac Medical History: Reports: Hx Atrial Fibrillation, Hx Congestive Heart Failure, Hx Hypercholesterolemia, Hx Hypertension, Hx Pulmonary Embolism Denies: Hx Coronary Artery Disease, Hx Heart Attack, Hx Peripheral Vascular Disease, Hx Heart Murmur Pulmonary Medical History: Reports: Hx Asthma, Hx COPD, Hx Pneumonia - 7 years ago, Hx Sleep Apnea - hx only, not a current problem, no CPAP, Hx Tuberculosis Denies: Hx Bronchitis, Hx Respiratory Failure Neurological Medical History: Reports: Hx Cerebrovascular Accident - Pt states no deficits. Denies: Hx Migraine, Hx Seizures Endocrine Medical History: Reports: Hx Diabetes Mellitus Type 2. Denies: Hx Graves' Disease, Hx Hyperthyroidism, Hx Hypothyroidism Renal/ Medical History: Reports: Hx Kidney Stones - 1981. Denies: Hx Benign Prostatic Hyperplasia, Hx End Stage Renal Disease, Hx Peritoneal Dialysis Malignancy Medical History: Denies Hx Lung Cancer GI Medical History: Reports: Hx Gastroesophageal Reflux Disease, Hx Hepatitis - Hep C, Hx Pancreatitis - 1988, Hx Ulcer. Denies: Hx Cirrhosis, Hx Crohn's Disease, Hx Hiatal Hernia, Hx Irritable Bowel, Hx Liver Failure, Hx Ulcerative Colitis Musculoskeletal Medical History: Reports Hx Arthritis - Back , Denies Hx Fibromyalgia, Denies Hx Multiple Sclerosis, Denies Hx Muscular Dystrophy, Reports Hx Musculoskeletal Deformity, Reports Hx Musculoskeletal Trauma Skin Medical History: Denies Hx Psoriasis Psychiatric Medical History: Denies: Hx Bipolar Disorder, Hx Dementia, Hx Depression, Hx Post Traumatic Stress Disorder, Hx Schizophrenia Traumatic Medical History: Reports: Hx Fractures, Hx Spine Fracture. Denies: Hx Traumatic Brain Injury Infectious Medical History: Reports: Hx Hepatitis - Hep C Past Surgical History: Reports: Hx Abdominal Surgery - Hernia repair, bowel r esection, Hx Appendectomy, Hx Bowel Surgery - bowel resection 1988, Hx Herniorrhaphy, Hx Oral Surgery, Hx Orthopedic Surgery - Spinal fusion. Meniscus repair., Other - Tracheostomy on 05/19/2017. Denies: Hx Cholecystectomy, Hx Colostomy, Hx Coronary Artery Bypass Graft, Hx Gastric Bypass Surgery, Hx Pacemaker, Hx Tonsillectomy - Immunizations Immunizations up to date: Yes Hx Diphtheria, Pertussis, Tetanus Vaccination: Yes Hx Pneumococcal Vaccination: 04/12/17 Physical Exam - Vital signs Vitals: Temp Pulse Resp BP Pulse Ox 98.0 F 68 24 H 118/71 94 07/15/18 07:23 07/15/18 07:23 07/15/18 07:23 07/15/18 07:23 07/15/18 07:23 Course - Re-evaluation Re-evalutation: Patient seen and examined vital signs reviewed. Laboratory data and imaging were ordered as appropriate for the patient's presenting symptoms and complaint, with consideration of any critical or life threatening conditions that may be associated with their obtained history and exam as noted above. Patient was treated with DuoNeb breathing treatments Results were reviewed when available and demonstrated unremarkable blood work, chest x-ray stable from prior The patient was re-evaluated and was improved, suctioning was performed to his tracheostomy and he was provided humidified air Evaluation was most consistent with intermittent tracheostomy displacement, mild COPD exacerbation, did not warrant steroids at this time he responded to 1 DuoNeb treatment, advised increasing his number of albuterol treatments daily from 2-4 for the next 5 days, his tracheostomy appeared to be in place post on clinical exam, and on chest x-ray. Advise follow-up with his ENT, to go over the granulation tissue, that surrounding his tracheostomy. Results were discussed with the patient at this point, after careful consideration I feel that that patient can be discharged from the emergency department, the patient was educated treatments and reasons to return to the emergency department based on their presumed diagnosis as noted above, they were advised to followup with a primary care physician in 2-3 days. Patient was agreeable to plan of care. *Note is created using voice recognition software and may contain spelling, syntax or grammatical errors. Laboratory 07/15/18 07/15/18 07/15/18 08:00 08:00 08:00 WBC 5.7 RBC 4.44 Hgb 13.2 L Hct 39.9 MCV 90 MCH 29.7 MCHC 33.0 RDW 14.7 H Plt Count 136 L Seg Neutrophils % 60.3 Lymphocytes % 25.6 Monocytes % 11.7 Eosinophils % 1.9 Basophils % 0.5 Absolute Neutrophils 3.4 Absolute Lymphocytes 1.5 Absolute Monocytes 0.7 Absolute Eosinophils 0.1 Absolute Basophils 0.0 Sodium 138.3 Potassium 4.0 Chloride 102 Carbon Dioxide 29 Anion Gap 7 BUN 13 Creatinine 0.85 Est GFR ( Amer) > 60 Est GFR (Non-Af Amer) > 60 Glucose 107 Calcium 9.1 Total Bilirubin 0.4 Direct Bilirubin 0.2 Neonat Total Bilirubin Not Reportable Neonat Direct Bilirubin Not Reportable Neonat Indirect Bili Not Reportable AST 19 ALT 23 Alkaline Phosphatase 87 Troponin I < 0.012 NT-Pro-B Natriuret Pep 64 Total Protein 7.4 Albumin 4.1 Chest X-Ray 07/15/18 07:35 IMPRESSION: Cardiomegaly without acute abnormality of the lungs in AP projection. Unchanged bibasilar scarring or atelectasis. Tracheostomy. - Vital Signs Vital signs: Temp Pulse Resp BP Pulse Ox 98.4 F 68 18 124/70 100 07/15/18 10:55 07/15/18 07:23 07/15/18 10:55 07/15/18 10:55 07/15/18 10:55 - Laboratory Result Diagrams: 07/15/18 08:00 07/15/18 08:00 Laboratory results interpreted by me: 07/15/18 08:00 Hgb 13.2 L RDW 14.7 H Plt Count 136 L - EKG Interpretation by Me Additional EKG results interpreted by me: EKG demonstrates sinus rhythm with a ventricular rate of 67 bpm, normal axis, QTC 427 ms, slight T wave inversion in lead III, nonspecific, this is compared with prior EKG from 06/20/2017, without significant change. Discharge - Discharge Clinical Impression: COPD exacerbation Condition: Stable Disposition: HOME, SELF-CARE Instructions: Dyspnea, Nonspecific ([facility]) Additional Instructions: Please use your albuterol nebulizer at least 3-4 times daily for the next 5 days to help moisten your tracheostomy, as well as keep your lungs open, please follow-up with the ear nose and throat physician regarding the tissue around the trachea, and follow-up with your primary care. Referrals: MIROSLAVA WINTERS DO [ASSOCIATE] - Follow up in 3-5 days
[2018-07-15 08:17] LABS: ABSOLUTE EOSINOPHILS # (AUTO) 0.1 10^3/uL (0.0-0.6); ABSOLUTE LYMPHOCYTES (AUTO) 1.5 10^3/uL (0.5-4.7); ABSOLUTE MONOCYTES (AUTO) 0.7 10^3/uL (0.1-1.4); ABSOLUTE NEUT (AUTO) 3.4 10^3/uL (1.7-8.2); BASOPHILS % (AUTO) 0.5 % (0-2); EOSINOPHILS % (AUTO) 1.9 % (0-6); HEMATOCRIT 39.9 % (37.9-51.0); HEMOGLOBIN 13.2 g/dL (13.5-17.0); LYMPHOCYTES % (AUTO) 25.6 % (13-45); MEAN CORPUSCULAR HEMOGLOBIN 29.7 pg (27.0-33.4); MEAN CORPUSCULAR VOLUME 90 fl (80-97); MONOCYTES % (AUTO) 11.7 % (3-13); PLATELET COUNT 136 10^3/uL (150-450); RED BLOOD COUNT 4.44 10^6/uL (4.35-5.55); RED CELL DISTRIBUTION WIDTH 14.7 % (11.5-14.0); SEGMENTED NEUTROPHILS % (AUTO) 60.3 % (42-78); TOTAL CELLS COUNTED % (AUTO) 100 %; WHITE BLOOD COUNT 5.7 10^3/uL (4.0-10.5)
--- NOTE | 2018-07-15 08:27 | RADIOLOGY REPORT (SQ) ---
EXAM DESCRIPTION: CHEST SINGLE VIEW COMPLETED DATE/TIME: 07/15/2018 7:55 am REASON FOR STUDY: shortness of breath, trach patient COMPARISON: 06/19/2018 EXAM PARAMETERS: NUMBER OF VIEWS: One view. TECHNIQUE: Single frontal radiographic view of the chest acquired. RADIATION DOSE: NA LIMITATIONS: None. FINDINGS: LUNGS AND PLEURA: No change in bibasilar scarring or atelectasis. There is no new airspac e opacity. MEDIASTINUM AND HILAR STRUCTURES: No masses. Contour normal. HEART AND VASCULAR STRUCTURES: Cardiomegaly. BONES: No acute findings. HARDWARE: None in the chest. OTHER: Tracheostomy appliance remains in position. IMPRESSION: Cardiomegaly without acute abnormality of the lungs in AP projection. Unchanged bibasil ar scarring or atelectasis. Tracheostomy. TECHNICAL DOCUMENTATION: JOB ID: [id number] [employer]- All Rights Reserved Reading location - IP/workstation name: [email or web address]
[2018-07-15 08:39] LABS: ALANINE AMINOTRANSFERASE 23 U/L (21-72); ALBUMIN 4.1 g/dL (3.5-5.0); ALKALINE PHOSPHATASE 87 U/L (38-126); ANION GAP 7 (5-19); ASPARTATE AMINO TRANSFERASE 19 U/L (17-59); BILIRUBIN,DIRECT 0.2 mg/dL (0.0-0.4); BILIRUBIN,TOTAL 0.4 mg/dL (0.2-1.3); BLOOD UREA NITROGEN 13 mg/dL (7-20); CALCIUM 9.1 mg/dL (8.4-10.2); CARBON DIOXIDE 29 mmol/L (22-30); CHLORIDE 102 mmol/L (98-107); GLUCOSE 107 mg/dL (75-110); SODIUM 138.3 mmol/L (137-145); TOTAL PROTEIN 7.4 g/dL (6.3-8.2)
[2018-07-15 08:57] LABS: NT PRO BNP 64 pg/mL (5-900)
[2018-07-15 08:58] LABS: TROPONIN I < 0.012 ng/mL
[2018-07-15 10:56] VITALS: BP 124/70
--- NOTE | 2018-07-15 13:20 | EKG REPORT ---
SEVERITY:- ABNORMAL ECG - SINUS RHYTHM NONSPECIFIC T ABNORMALITIES, INFERIOR LEADS : Confirmed by: Elias Arce MD 15-Jul-2018 13:20:17
== END 2018-07-15 10:58 | disposition home or self-care (01) ==
LOC: ER 07:16
DX: J44.1 Chronic obstructive pulmonary disease with (acute) exacerbation (principal); Z43.0 Encounter for attention to tracheostomy; I11.9 Hypertensive heart disease without heart failure; E11.21 Type 2 diabetes mellitus with diabetic nephropathy; R06.02 Shortness of breath; R60.0 Localized edema; I48.91 Unspecified atrial fibrillation; Z79.01 Long term (current) use of anticoagulants; Z87.891 Personal history of nicotine dependence; Z88.5 Allergy status to narcotic agent; Z88.8 Allergy status to other drugs, medicaments and biological substances; Z88.7 Allergy status to serum and vaccine; Z87.892 Personal history of anaphylaxis; Z87.01 Personal history of pneumonia (recurrent); Z79.899 Other long term (current) drug therapy
CPT/HCPCS: 93005; 94640; 99285; 36415; 85025; 80053; 84484; 83880; 71045; 93010; J7620

== ENCOUNTER 2018-09-27 08:46 | Emergency (ER) | payer OTHER ==
[2018-09-27] MEDS ORDERED: EPINEPHRINE INJ/PF 1 MG/1 ML AMPULE ONE (09:00)
[2018-09-27] MEDS ORDERED: METHYLPREDNISOLONE INJ 40 MG/1 ML SDV IV ONE (09:05)
[2018-09-27] MEDS ORDERED: EPINEPHRINE INJ/PF 1 MG/1 ML AMPULE IM ONE (09:06)
[2018-09-27] MEDS ORDERED: FAMOTIDINE INJ/PF 20 MG/2 ML SDV IV ONE (09:06)
[2018-09-27] MEDS ORDERED: DIPHENHYDRAMINE HCL 50 MG/ML VIAL IV ONE (09:06)
--- NOTE | 2018-09-27 11:01 | RADIOLOGY REPORT (SQ) ---
EXAM DESCRIPTION: CHEST SINGLE VIEW COMPLETED DATE/TIME: 09/27/2018 10:51 am REASON FOR STUDY: short of breath COMPARISON: 08/04/2018 NUMBER OF VIEWS: One view. TECHNIQUE: Single frontal radiographic image of the chest acquired. LIMITATIONS: Positioning. FINDINGS: LUNGS AND PLEURA: Chronic scarring in the lung bases. Chronic volume loss on the left. MEDIASTINUM AND HEART: Stable heart size and mediastinal structures. SUPPORT DEVICES: Stable position of tracheostomy. BONY STRUCTURES: No acute findings. HARDWARE: None. OTHER: No other significant finding. IMPRESSION: Stable, chronic changes. Reading location - IP/workstation name: [email or web address]
--- NOTE | 2018-09-27 11:29 | ER Document Report ---
ED General - General Chief Complaint: Allergic Reaction Stated Complaint: POSSIBLE ALLERGIC REACTION Time Seen by Provider: 09/27/18 09:05 Primary Care Provider: MIL BORGES [Primary Care Provider] - Follow up as needed Notes: Patient is a 62-year-old male that presents to the emergency department for chief complaint of allergic reaction. Patient states he tried a diet pill this morning, within 10 minutes, he felt that his throat was swelling, face was swelling, became rather concerned so he came to the emergency department. He does have a tracheostomy, because of prior allergic reaction. He states his breathing is a little bit more difficult, but denies any any wheezing. Denies any chest pain, nausea, vomiting or rash or itching. He states that the dietary supplement is a herbal medication, he is not sure what to do but he did bring the bottle. Past Medical History: CHF, diabetes mellitus, hypertension Past Surgical History: Tracheostomy Social History: Denies current tobacco, alcohol or drug use. Family History: Reviewed and noncontributory for presenting illness Allergies: Reviewed, see documented allergy list. REVIEW OF SYSTEMS: Other than noted above, the 12 point review of systems was reviewed with the patient and were negative, all pertinent findings are included in the HPI. PHYSICAL EXAMINATION: Vital signs reviewed, nursing noted reviewed. GENERAL: Patient appears mildly uncomfortable, mild distress HEAD: Atraumatic, normocephalic. EYES: Eyes appear normal, extraocular movements intact, sclera anicteric, conjunctiva are normal. ENT: nares patent, oropharynx clear without exudates. Moist mucous membranes. There is noted to be mild angioedema of the tongue, uvula is nonedematous and midline. NECK: Normal range of motion, supple without lymphadenopathy, tracheostomy in place, patent. LUNGS: Breath sounds clear to auscultation bilaterally and equal. No wheezes rales or rhonchi. No respiratory distress. HEART: Regular rate and rhythm without murmurs ABDOMEN: Soft, nontender, normoactive bowel sounds. No rebound, guarding, or rigidity. No masses appreciated. EXTREMITIES: Nontender, good range of motion, bilateral lower extremity pitting edema, 1+ bilaterally, equal, and chronic per patient. NEUROLOGICAL: No focal neurological deficits. Moves all extremities spontaneously Motor and sensory grossly intact on exam. PSYCH: Normal mood, normal affect. SKIN: Warm, Dry, normal turgor, no rashes or lesions noted on exposed skin TRAVEL OUTSIDE OF THE [place] IN LAST 30 DAYS: No - Related Data Allergies/Adverse Reactions: codeine [Codeine] Allergy (Severe, Verified 09/27/18 08:54) Facial swelling hydrocodone bitartrate [From Vicodin] Allergy (Severe, Verified 09/27/18 08:54) Anaphylaxis lisinopril Allergy (Severe, Verified 09/27/18 08:54) Anaphylaxis tuberculin, purified protein deriva Allergy (Severe, Verified 09/27/18 08:54) PPD CONVERTER hydromorphone [From Dilaudid] Allergy (Verified 09/27/18 08:54) Difficulty breathing Iodine and Iodide Containing Produc Allergy (Verified 09/27/18 08:54) Anaphylaxis morphine Allergy (Verified 09/27/18 08:54) Itching oxycodone Allergy (Verified 09/27/18 08:54) Swelling of tongue All Opioids Allergy (Uncoded 09/27/18 08:54) Swellling Past Medical History - Social History Smoking Status: Unknown if Ever Smoked Family History: Arthritis, CAD - Mother and brother, CVA, DM, Hyperlipidemia, Hypertension, Malignancy Patient has suicidal ideation: No Patient has homicidal ideation: No - Past Medical History Cardiac Medical History: Reports: Hx Atrial Fibrillation, Hx Congestive Heart Failure, Hx Hypercholesterolemia, Hx Hypertension, Hx Pulmonary Embolism Pulmonary Medical History: Reports: Hx Asthma, Hx COPD, Hx Pneumonia - 7 years ago, Hx Sleep Apnea - hx only, not a current problem, no CPAP, Hx Tuberculosis Neurological Medical History: Reports: Hx Cerebrovascular Accident - Pt states no deficits Endocrine Medical History: Reports: Hx Diabetes Mellitus Type 2 Renal/ Medical History: Reports: Hx Kidney Stones - 1981. Denies: Hx Perit pacheco Dialysis Malignancy Medical History: Denies Hx Lung Cancer GI Medical History: Reports: Hx Gastroesophageal Reflux Disease, Hx Hepatitis - Hep C, Hx Pancreatitis - 1988, Hx Ulcer Musculoskeletal Medical History: Reports Hx Arthritis - Back , Reports Hx Musculoskeletal Deformity, Reports Hx Musculoskeletal Trauma, Denies Hx Systemic Lupus Erythematosus Skin Medical History: Denies Hx Psoriasis Psychiatric Medical History: Denies: Hx Bipolar Disorder, Hx Dementia, Hx Depression, Hx Post Traumatic Stress Disorder, Hx Schizophrenia Traumatic Medical History: Reports: Hx Fractures, Hx Spine Fracture. Denies: Hx Traumatic Brain Injury Infectious Medical History: Reports: Hx Hepatitis - Hep C Past Surgical History: Reports: Hx Abdominal Surgery - Hernia repair, bowel resection, Hx Appendectomy, Hx Bowel Surgery - bowel resection 1988, Hx Herniorrhaphy, Hx Oral Surgery, Hx Orthopedic Surgery - Spinal fusion. Meniscus repair., Other - Tracheostomy on 05/19/2017. Denies: Hx Cholecystectomy, Hx Colostomy, Hx Coronary Artery Bypass Graft, Hx Gastric Bypass Surgery, Hx Pacemaker, Hx Tonsillectomy - Immunizations Immunizations up to date: Yes Hx Diphtheria, Pertussis, Tetanus Vaccination: Yes Hx Pneumococcal Vaccination: 04/12/17 Physical Exam - Vital signs Vitals: Temp Pulse BP Pulse Ox 98.2 F 81 113/78 98 09/27/18 08:50 09/27/18 08:50 09/27/18 08:50 09/27/18 08:50 Course - Re-evaluation Re-evalutation: Patient seen and examined vital signs reviewed. Laboratory data and/or imaging were ordered as appropriate for the patient's pre senting symptoms and complaint, with consideration of any critical or life threatening conditions that may be associated with their obtained history and exam as noted above. Patient was treated with IM epinephrine, 0.2 mg, IV Solu-Medrol 60 mg, IV Pepcid and Benadryl. Results were reviewed when available and demonstrated unchanged chest x-ray, stable cardiomegaly The patient was re-evaluated and was stable, and was feeling better Evaluation was most consistent with acute allergic reaction, angioedema Results were discussed with the patient at this point, after careful consideration I feel that that patient can be discharged from the emergency department, the patient was educated treatments and reasons to return to the emergency department based on their presumed diagnosis as noted above, they were advised to followup with a primary care physician in 2-3 days. Patient was agreeable to plan of care. *Note is created using voice recognition software and may contain spelling, syntax or grammatical errors. Chest X-Ray 09/27/18 10:33 IMPRESSION: Stable, chronic changes. - Vital Signs Vital signs: Temp Pulse Resp BP Pulse Ox 98.2 F 81 19 117/87 H 93 09/27/18 08:50 09/27/18 08:50 09/27/18 10:02 09/27/18 10:02 09/27/18 10:02 - Laboratory Laboratory results interpreted by me: 09/27/18 09:31 POC Glucose 136 H Critical Care Note - Critical Care Note Total time excluding time spent on procedures (mins): 35 Comments: Critical care time 35 minutes exclusive from separate billable procedures for a patient requiring complex medical decision making, and high potential for clinical deterioration. The patient presented with angioedema, acute allergic reaction, requiring IM epinephrine, close monitoring. Time spent obtaining histo ry from patient or surrogate, discussions with consultants, development of treatment plan with patient or surrogate, evaluation of patient's response to treatment, examination of patient, ordering and performing treatments and interventions, ordering and review of laboratory studies, re-evaluation of patient's condition, ordering and review of radiographic studies and review of old charts Discharge - Discharge Clinical Impression: Acute allergic reaction Qualifiers: Encounter type: initial encounter Qualified Code(s): T78.40XA - Allergy, unspecified, initial encounter Angioedema Qualifiers: Encounter type: initial encounter Qualified Code(s): T78.3XXA - Angioneurotic edema, initial encounter Condition: Stable Disposition: HOME, SELF-CARE Instructions: Acute Allergic Reaction ([facility]) Additional Instructions: Please monitor for any worsening symptoms such as difficulty breathing, chest pain, vomiting, abdominal pain or rash. Avoid any further use of that medication, avoid contact with that as well. If you have those worsening symptoms, please return to the emergency department immediately. [facility]errals: [facility] [[facility]] - Follow up in 3-5 days
[2018-09-27 12:23] VITALS: BP 117/62
== END 2018-09-27 12:26 | disposition home or self-care (01) ==
LOC: ER 08:46
DX: T78.3XXA Angioneurotic edema, initial encounter (principal); T78.40XA Allergy, unspecified, initial encounter; X58.XXXA Exposure to other specified factors, initial encounter; I48.91 Unspecified atrial fibrillation; I50.9 Heart failure, unspecified; E78.00 Pure hypercholesterolemia, unspecified; I11.0 Hypertensive heart disease with heart failure; Z86.711 Personal history of pulmonary embolism; J44.9 Chronic obstructive pulmonary disease, unspecified; Z86.73 Personal history of transient ischemic attack (TIA), and cerebral infarction without residual deficits; E11.9 Type 2 diabetes mellitus without complications; Z87.442 Personal history of urinary calculi; Z86.19 Personal history of other infectious and parasitic diseases
CPT/HCPCS: 99285; 96372; 96374; 96375; 82962; 71045; J1200; J0171; J2920; S0028

== ENCOUNTER 2018-10-06 10:34 | Emergency (ER) | payer OTHER ==
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
[2018-10-06] MEDS ORDERED: CYCLOBENZAPRINE HCL 10 MG TABLET PO ONE (17:42)
[2018-10-06] MEDS ORDERED: DIPHENHYDRAMINE HCL 25 MG CAPSULE PO ONE (17:43)
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
[2018-10-06 18:58] VITALS: BP 118/76
--- NOTE | 2018-10-07 00:36 | RADIOLOGY REPORT (SQ) ---
EXAM DESCRIPTION: US EXTREMITY VEINS UNILATERAL COMPLETED DATE/TME: 10/06/2018 17:42 CLINICAL HISTORY: 62 years, Male, right lower leg edema, hx of DVT, getting worse EXAM DESCRIPTION: 10/06/2018 11:35 PM CDT CLINICAL HISTORY: 62 years, Male, right lower leg edema, hx of DVT, getting worse COMPARISON: None TECHNIQUE: Utilizing a linear array transducer, real-time ultrasound evaluation of the right lower extremity was performed. Color Doppler imaging was used to assess vascular flow. FINDINGS: The right common femoral and proximal/mid/distal superficial femoral veins are normal in caliber and compressibility. There is normal directional flow. The right popliteal vein is normal in appearance. There is normal directional flow and normal compressibility. IMPRESSION: No evidence of right lower extremity deep venous thrombosis.
== END 2018-10-06 19:00 | disposition home or self-care (01) ==
LOC: ER 10:34
DX: S39.012A Strain of muscle, fascia and tendon of lower back, initial encounter (principal); V44.6XXA Car passenger injured in collision with heavy transport vehicle or bus in traffic accident, initial encounter; R60.0 Localized edema; M47.9 Spondylosis, unspecified; I10 Essential (primary) hypertension; J44.9 Chronic obstructive pulmonary disease, unspecified; E11.9 Type 2 diabetes mellitus without complications; Z86.718 Personal history of other venous thrombosis and embolism; Z86.711 Personal history of pulmonary embolism; Z79.02 Long term (current) use of antithrombotics/antiplatelets; Z93.0 Tracheostomy status; Z87.892 Personal history of anaphylaxis; Z88.5 Allergy status to narcotic agent; Z88.8 Allergy status to other drugs, medicaments and biological substances; Z88.7 Allergy status to serum and vaccine; Z87.891 Personal history of nicotine dependence; Z98.1 Arthrodesis status
CPT/HCPCS: 72131; 93971; 99284

== ENCOUNTER 2018-10-09 10:15 | Emergency (ER) | payer OTHER ==
[2018-10-09] MEDS ORDERED: IPRATROPIUM/ALBUTEROL 0.5-2.5 MG/3 ML AMPUL NEB ONE (10:34)
[2018-10-09] MEDS ORDERED: METHYLPREDNISOLONE INJ 125 MG/2 ML SDV IV ONE (10:34)
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
[2018-10-09 11:11] LABS: ABSOLUTE EOSINOPHILS # (AUTO) 0.1 10^3/uL (0.0-0.6); ABSOLUTE LYMPHOCYTES (AUTO) 1.6 10^3/uL (0.5-4.7); ABSOLUTE MONOCYTES (AUTO) 0.7 10^3/uL (0.1-1.4); ABSOLUTE NEUT (AUTO) 4.4 10^3/uL (1.7-8.2); BASOPHILS % (AUTO) 0.4 % (0-2); EOSINOPHILS % (AUTO) 1.3 % (0-6); HEMATOCRIT 39.8 % (37.9-51.0); HEMOGLOBIN 13.2 g/dL (13.5-17.0); LYMPHOCYTES % (AUTO) 23.3 % (13-45); MEAN CORPUSCULAR HGB CONC 33.2 g/dL (32.0-36.0); MEAN CORPUSCULAR VOLUME 87 fl (80-97); MONOCYTES % (AUTO) 10.1 % (3-13); PLATELET COUNT 139 10^3/uL (150-450); RED BLOOD COUNT 4.55 10^6/uL (4.35-5.55); SEGMENTED NEUTROPHILS % (AUTO) 64.9 % (42-78); TOTAL CELLS COUNTED % (AUTO) 100 %; WHITE BLOOD COUNT 6.8 10^3/uL (4.0-10.5)
--- NOTE | 2018-10-09 11:14 | RADIOLOGY REPORT (SQ) ---
EXAM DESCRIPTION: CHEST SINGLE VIEW COMPLETED DATE/TIME: 10/09/2018 10:59 am REASON FOR STUDY: diff breathing, chest tight COMPARISON: Chest x-ray 09/27/2018. CT dated 06/20/2018. EXAM PARAMETERS: NUMBER OF VIEWS: One view. TECHNIQUE: Single frontal radiographic view of the chest acquired. RADIATION DOSE: NA LIMITATIONS: None. FINDINGS: LUNGS AND PLEURA: Stable scarring in the left lung base. Prominent fat pad in the right c ardiophrenic angle. No opacities, masses or pneumothorax. No pleural effusion. MEDIASTINUM AND HILAR STRUCTURES: No masses. Contour normal. HEART AND VASCULAR STRUCTURES: Stable cardiomegaly. BONES: No acute findings. HARDWARE: Tracheostomy tube. OTHER: No other significant finding. IMPRESSION: STABLE CHRONIC CHANGES. NO ACUTE RADIOGRAPHIC FINDING IN THE CHEST. TECHNICAL DOCUMENTATION: JOB ID: [id number] [employer]- All Rights Reserved Reading location - IP/workstation name: [email or web address]
[2018-10-09] MEDS ORDERED: METHYLPREDNISOLONE INJ 125 MG/2 ML SDV IM ONE (11:28)
[2018-10-09 11:29] LABS: ALANINE AMINOTRANSFERASE 17 U/L (21-72); ALKALINE PHOSPHATASE 83 U/L (38-126); ANION GAP 9 (5-19); ASPARTATE AMINO TRANSFERASE 15 U/L (17-59); BILIRUBIN,DIRECT 0.1 mg/dL (0.0-0.4); BILIRUBIN,TOTAL 0.3 mg/dL (0.2-1.3); BLOOD UREA NITROGEN 15 mg/dL (7-20); CALCIUM 8.8 mg/dL (8.4-10.2); CARBON DIOXIDE 28 mmol/L (22-30); CHLORIDE 101 mmol/L (98-107); CREATINE KINASE 260 U/L (55-170); GLUCOSE 153 mg/dL (75-110); SODIUM 137.9 mmol/L (137-145); TOTAL PROTEIN 6.9 g/dL (6.3-8.2)
[2018-10-09 11:50] VITALS: BP 119/74
--- NOTE | 2018-10-09 22:19 | EKG REPORT ---
SEVERITY:- BORDERLINE ECG - SINUS RHYTHM BORDERLINE T ABNORMALITIES, INFERIOR LEADS : Confirmed by: Brad Piper 09-Oct-2018 22:18:31
== END 2018-10-09 12:15 | disposition home or self-care (01) ==
LOC: ER 10:15
DX: J44.1 Chronic obstructive pulmonary disease with (acute) exacerbation (principal); T48.996A Underdosing of other agents primarily acting on the respiratory system, initial encounter; Z91.128 Patient's intentional underdosing of medication regimen for other reason; Z91.14 Patient's other noncompliance with medication regimen; E11.9 Type 2 diabetes mellitus without complications; I10 Essential (primary) hypertension; Z87.891 Personal history of nicotine dependence; Z86.711 Personal history of pulmonary embolism; Z87.01 Personal history of pneumonia (recurrent); Z87.892 Personal history of anaphylaxis; Z88.5 Allergy status to narcotic agent; Z88.8 Allergy status to other drugs, medicaments and biological substances; Z88.7 Allergy status to serum and vaccine
CPT/HCPCS: 93005; 99285; 96372; 36415; 82550; 85025; 80053; 84484; 71045; 93010; J2930; J7620

== ENCOUNTER 2018-10-28 06:54 | Observation (INO) | payer OTHER ==
[2018-10-28] MEDS ORDERED: IPRATROPIUM/ALBUTEROL 0.5-2.5 MG/3 ML AMPUL NEB ONE (06:58)
[2018-10-28] MEDS ORDERED: METHYLPREDNISOLONE INJ 125 MG/2 ML SDV ONE (06:58)
[2018-10-28] MEDS ORDERED: DIPHENHYDRAMINE HCL 50 MG/ML VIAL IV ONE (07:07)
[2018-10-28] MEDS ORDERED: FAMOTIDINE INJ/PF 20 MG/2 ML SDV IV ONE (07:07)
[2018-10-28] MEDS ORDERED: METHYLPREDNISOLONE INJ 125 MG/2 ML SDV IV ONE (07:07)
--- NOTE | 2018-10-28 08:19 | RADIOLOGY REPORT (SQ) ---
EXAM DESCRIPTION: SOFT TISSUE NECK COMPLETED DATE/TIME: 10/28/2018 7:40 am REASON FOR STUDY: throat swelling COMPARISON: 06/19/2018, 11/25/2017, 08/27/2017 soft tissue neck plain films NUMBER OF VIEWS: Two views. TECHNIQUE: AP and lateral radiographic image of the soft tissues of the neck. LIMITATIONS: None. FINDINGS: EPIGLOTTIS: Normal. Contour normal. Aryepiglottic folds normal. PREVERTEBRAL SOFT TISSUES: Normal. No soft tissue swelling. SUBGLOTTIC AREA: Patient has a tracheostomy tube in good positioning. BONES: No significant findings. LUNG APICES: Normal. OTHER: Report called to Dr. Charles in the emergency room IMPRESSION: No acute findings TECHNICAL DOCUMENTATION: JOB ID: [id number] [employer]- All Rights Reserved Reading location - IP/workstation name: [email or web address]
--- NOTE | 2018-10-28 08:23 | RADIOLOGY REPORT (SQ) ---
EXAM DESCRIPTION: CHEST SINGLE VIEW COMPLETED DATE/TIME: 10/28/2018 7:40 am REASON FOR STUDY: throat swelling, SOB COMPARISON: Chest films 10/09/2018, 09/27/2018 EXAM PARAMETERS: NUMBER OF VIEWS: One view. TECHNIQUE: Single frontal radiographic view of the chest acquired. RADIATION DOSE: NA LIMITATIONS: None. FINDINGS: LUNGS AND PLEURA: Persistent bandlike scarring at both bases. No acute infiltrates, pleur al effusion or pneumothorax. MEDIASTINUM AND HILAR STRUCTURES: No masses. Contour normal. HEART AND VASCULAR STRUCTURES: Stable cardiomegaly BONES: No acute findings. HARDWARE: Tracheostomy tube tip in the midtrachea OTHER: No other significant finding. IMPRESSION: No acute findings TECHNICAL DOCUMENTATION: JOB ID: [id number] [employer]- All Rights Reserved Reading location - IP/workstation name: [email or web address]
[2018-10-28 09:26] LABS: ABSOLUTE LYMPHOCYTES (AUTO) 0.9 10^3/uL (0.5-4.7); ABSOLUTE MONOCYTES (AUTO) 0.2 10^3/uL (0.1-1.4); ABSOLUTE NEUT (AUTO) 4.6 10^3/uL (1.7-8.2); BASOPHILS % (AUTO) 0.6 % (0-2); EOSINOPHILS % (AUTO) 0.9 % (0-6); HEMATOCRIT 41.1 % (37.9-51.0); HEMOGLOBIN 13.5 g/dL (13.5-17.0); LYMPHOCYTES % (AUTO) 15.6 % (13-45); MEAN CORPUSCULAR HEMOGLOBIN 28.8 pg (27.0-33.4); MEAN CORPUSCULAR HGB CONC 32.8 g/dL (32.0-36.0); MEAN CORPUSCULAR VOLUME 88 fl (80-97); MONOCYTES % (AUTO) 3.8 % (3-13); PLATELET COUNT 116 10^3/uL (150-450); RED BLOOD COUNT 4.68 10^6/uL (4.35-5.55); RED CELL DISTRIBUTION WIDTH 15.4 % (11.5-14.0); SEGMENTED NEUTROPHILS % (AUTO) 79.1 % (42-78); TOTAL CELLS COUNTED % (AUTO) 100 %; WHITE BLOOD COUNT 5.8 10^3/uL (4.0-10.5)
[2018-10-28 09:30] LABS: INTERNATIONAL RATION (INR) 0.95; PROTHROMBIN TIME 12.7 SEC (11.4-15.4)
[2018-10-28 09:42] LABS: ALANINE AMINOTRANSFERASE 23 U/L (21-72); ALBUMIN 4.1 g/dL (3.5-5.0); ALKALINE PHOSPHATASE 87 U/L (38-126); ANION GAP 7 (5-19); ASPARTATE AMINO TRANSFERASE 16 U/L (17-59); BILIRUBIN,DIRECT 0.2 mg/dL (0.0-0.4); BILIRUBIN,TOTAL 0.3 mg/dL (0.2-1.3); BLOOD UREA NITROGEN 14 mg/dL (7-20); CARBON DIOXIDE 32 mmol/L (22-30); CHLORIDE 99 mmol/L (98-107); GLUCOSE 223 mg/dL (75-110); POTASSIUM 4.2 mmol/L (3.6-5.0); TOTAL PROTEIN 6.9 g/dL (6.3-8.2)
[2018-10-28] MEDS ORDERED: ALBUTEROL SULFATE HFA (90 MCG/PUFF) 8 GM MDI (1 MDI/ER DISP) IH ONE (09:47)
[2018-10-28] MEDS ORDERED: ALBUTEROL SULFATE 0.083% NEB 2.5 MG/3 ML AMPUL NEB ONE (10:07)
--- NOTE | 2018-10-28 12:21 | ER Document Report ---
Entered by FRANCISCO JAVIER WARNER SCRIBE 10/28/18 0711 Acting as scribe for:MICK MARIN DO ED General - General Chief Complaint: Shortness Of Breath Stated Complaint: DIFFICULTY BREATHING Time Seen by Provider: 10/28/18 07:00 Notes: Patient is a 62-year-old male presenting to the emergency department after suffering from an allergic reaction. at bedside states that she did inject him with his EpiPen after his tongue began to swell. After receiving the epinephrine patient states that he did not feel any better but he has not felt worse either. Patient has had such severe recurrent allergic reactions and epi sodes of angioedema that he actually has a tracheostomy. Patient states that recently he has been having more difficulty with his tracheostomy and despite replacing the inner cannula he still feels like there is something in the back of his throat blocking him from breathing. states he has had a swollen right lower extremity for about 2 months, patient had a doppler done at the [facility]. states that the patient has "water blisters" on his right lower extremity on the anterior aspect of the [place] from the swelling. Patient is having outpatient follow-up for this. TRAVEL OUTSIDE OF THE [place] IN LAST 30 DAYS: No - Related Data Allergies/Adverse Reactions: codeine [Codeine] Allergy (Severe, Verified 10/06/18 10:35) Facial swelling hydrocodone bitartrate [From Vicodin] Allergy (Severe, Verified 10/06/18 10:35) Anaphylaxis lisinopril Allergy (Severe, Verified 10/06/18 10:35) Anaphylaxis tuberculin, purified protein deriva Allergy (Severe, Verified 10/06/18 10:35) PPD CONVERTER hydromorphone [From Dilaudid] Allergy (Verified 10/06/18 10:35) Difficulty breathing Iodine and Iodide Containing Produc Allergy (Verified 10/06/18 10:35) Anaphylaxis morphine Allergy (Verified 10/06/18 10:35) Itching oxycodone Allergy (Verified 10/06/18 10:35) Swelling of tongue All Opioids Allergy (Uncoded 10/06/18 10:35) Swellling Past Medical History - General Information source: Patient - Social History Smoking Status: Never Smoker Cigarette use (# per day): No Chew tobacco use (# tins/day): No Frequency of alcohol use: None Drug Abuse: None Family History: Arthritis, CAD - Mother and brother, CVA, DM, Hyperlipidemia, Hypertension, Malignancy - Past Medical History Cardiac Medical History: Reports: Hx Atrial Fibrillation, Hx Congestive Heart Failure, Hx Hypercholesterolemia, Hx Hypertension, Hx Pulmonary Embolism Pulmonary Medical History: Reports: Hx Asthma, Hx COPD, Hx Pneumonia - 7 years ago, Hx Sleep Apnea - hx only, not a current problem, no CPAP, Hx Tuberculosis Neurological Medical History: Reports: Hx Cerebrovascular Accident - Pt states no deficits Endocrine Medical History: Reports: Hx Diabetes Mellitus Type 2 Renal/ Medical History: Reports: Hx Kidney Stones - 1981 GI Medical History: Reports: Hx Gastroesophageal Reflux Disease, Hx Hepatitis - Hep C, Hx Pancreatitis - 1988, Hx Ulcer Musculoskeletal Medical History: Reports Hx Arthritis - Back , Reports Hx Musculoskeletal Deformity, Reports Hx Musculoskeletal Trauma Traumatic Medical History: Reports: Hx Fractures, Hx Spine Fracture Infectious Medical History: Reports: Hx Hepatitis - Hep C Past Surgical History: Reports: Hx Abdominal Surgery - Hernia repair, bowel resection, Hx Appendectomy, Hx Bowel Surgery - bowel resection 1988, Hx Herni orrhaphy, Hx Oral Surgery, Hx Orthopedic Surgery - Spinal fusion. Meniscus repair., Other - Tracheostomy on 05/19/2017 - Immunizations Immunizations up to date: Yes Hx Diphtheria, Pertussis, Tetanus Vaccination: Yes Hx Pneumococcal Vaccination: 04/12/17 Review of Systems - Review of Systems Constitutional: No symptoms reported EENT: See HPI, Mouth swelling Cardiovascular: No symptoms reported Respiratory: No symptoms reported Gastrointestinal: No symptoms reported Genitourinary: No symptoms reported Male Genitourinary: No symptoms reported Musculoskeletal: No symptoms reported Skin: No symptoms reported Hematologic/Lymphatic: No symptoms reported Neurological/Psychological: No symptoms reported -: Yes All other systems reviewed and negative Physical Exam - Vital signs Vitals: Pulse Resp BP Pulse Ox 73 40 H 130/95 H 95 10/28/18 06:57 10/28/18 06:57 10/28/18 06:57 10/28/18 06:57 Interpretation: Tachypneic - Notes Notes: PHYSICAL EXAM GENERAL: Alert, awake, sitting upright, anxious, tachypneic. HEAD: Normocephalic, atraumatic. EYES: Pupils equal, round, and reactive to light. Extraocular movements intact. ENT: Oral mucosa moist, tongue midline. Large tongue but I do not see any swelling. Difficult to visualize posterior oropharynx. With tongue depressor I do not see any posterior or pharyngeal swelling. NECK: Full range of motion. Supple. Trachea midline with tracheostomy in good position, no exudate. No bleeding. LUNGS: Clear to auscultation bilaterally, no wheezes, rales, or rhonchi. Tachypnea, appears mildly short of breath. HEART: Regular rate and rhythm. No murmurs, gallops, or rubs. ABDOMEN: Soft, non-tender. Non-distended. Bowel sounds present in all 4 quadrants. No guarding, rigidity, or rebound. EXTREMITIES: Moves all 4 extremities spontaneously. +2 pitting edema right lower extremity. radial and dorsalis pedis pulses 2/4 bilaterally. No cyanosis. NEUROLOGICAL: Alert and oriented x3. Able to speak with tracheostomy in place. PSYCH: Normal affect, normal mood. SKIN: Warm, dry, clear fluid filled blister, sub 1 centimeter to anterior aspect of right [place]. Course - Re-evaluation Re-evalutation: 10/28/18 12:18 Mild thromocytopenia with platelet count of 116 otherwise normal, coags normal, CMP shows uncontrolled hyperglycemia with a glucose of 223. Chest x-ray and soft tissue neck x-ray do not show any acute infection or marked swelling. Tracheostomy is in good position. No foreign body. Patient has not had any increase in his sensation of tongue swelling since he arrived however he has not had any decrease in his sensation of tongue swelling either. Patient is able to eat at the bedside however he still feels like the back of his throat is very swollen around his tracheostomy and he is concerned that this is going to progress. I have not been able to relieve any symptoms despite epinephrine at home, Pepcid Benadryl Solu-Medrol here or multiple episodes of suctioning or breathing treatments. Discussed the case with Dr. Escalona who states that his upper airway could indeed be swelling and it could close off completely however that is why he has a tracheostomy. Dr. Escalona does not feel that as long as he is oxygenating well and breathing well that there is any indication to come in and do some sort of a scope on his tracheostomy. At this time I do feel the patient is breathing well and exchanging air well. I did consult with the hospitalist Dr. Carmona who agrees to bring the patient in an observation status to make sure his symptoms do not progress. - Vital Signs Vital signs: Temp Pulse Resp BP Pulse Ox 98.3 F 73 24 H 125/76 95 10/28/18 09:31 10/28/18 06:57 10/28/18 12:01 10/28/18 12:00 10/28/18 12:01 - Laboratory Result Diagrams: 10/28/18 09:13 10/28/18 09:13 Laboratory results interpreted by me: 10/28/18 10/28/18 09:13 09:13 RDW 15.4 H Plt Count 116 L Seg Neutrophils % 79.1 H Carbon Dioxide 32 H Glucose 223 H AST 16 L - EKG Interpretation by Me Additional EKG results interpreted by me: 10/28/18 12:22 EKG shows sinus rhythm at a rate of 70, left axis deviation, normal intervals, no ST segment elevations or depressions, there are T wave inversions noted in lead III and aVF per my interpretation. Discharge - Discharge Clinical Impression: upper airway swelling, Tracheostomy in place, Thrombocytopenia Dyspnea Qualifiers: Dyspnea type: unspecified Qualified Code(s): R06.00 - Dyspnea, unspecified Condition: Fair Disposition: ADMITTED OBSERVATION Admitting Provider: Kristine (Hospitalist) Unit Admitted: Telemetry I personally performed the services described in the documentation, reviewed and edited the documentation which was dictated to the scribe in my presence, and it accurately records my words and actions.
[2018-10-28] MEDS ORDERED: DEXTROSE 40% GEL 15 GM TUBE PO PRN ×2 (13:50)
[2018-10-28] MEDS ORDERED: DEXTROSE 50%-WATER 25 GM/50 ML DISP.SYRIN IV PRN ×2 (13:50)
[2018-10-28] MEDS ORDERED: GLUCAGON,HUMAN RECOMB 1 MG INJ IM PRN (13:50)
[2018-10-28] MEDS: ALBUTEROL SULFATE 0.083% NEB 2.5 MG/3 ML AMPUL NEB SCH ×2 (14:04→20:42)
[2018-10-28] MEDS: DIPHENHYDRAMINE HCL 50 MG/ML VIAL IV SCH ×2 (15:19→21:35)
[2018-10-28] MEDS: INSULIN LISPRO 100 UNIT/ML 3 ML VIAL SUBCUT SCH ×2 (15:20→21:35)
--- NOTE | 2018-10-28 15:32 | PDOC H&P ---
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 Patient says he has been apparently fine until early this morning when he started having bouts of cough and shortness of breath and he noticed that his tongue was swelling. He also had the sensation of throat tightness. He was brought into the ER and he was given Benadryl, IV steroids and breathing treatments. He did get relief but still says that he had some throat tightness. He has a cuffed trach. Upon encounter, he appears comfortable and is saturating well on room air. He denies any recent new medication or medication changes. Denies any potential food triggers for his episode this morning. Past Medical History Cardiac Medical History: Reports: Atrial Fibrillation, Congestive Heart Failure, Hyperlipidema, Hypertension, Pulmonary Embolism Pulmonary Medical History: Reports: Asthma, Chronic Obstructive Pulmonary Disease (COPD), Pneumonia - 7 years ago, Sleep Apnea - hx only, not a current problem, no CPAP, Tuberculosis Endocrine Medical History: Reports: Diabetes Mellitus Type 2 Malignancy Medical History: Denies: Lung Cancer GI Medical History: Reports: Gastroesophageal Reflux Disease, Hepatitis - Hep C Musculoskeltal Medical History: Reports: Arthritis - Back Skin Medical History: Denies: Psoriasis Psychiatric Medical History: Denies: Bipolar Disorder, Dementia, Depression, Post Traumatic Stress Disorder Traumatic Medical History: Denies: Traumatic Brain Injury Hematology: Denies: Anemia, Sickle Cell Disease, Bleeding Tendencies Past Surgical History Past Surgical History: Reports: Appendectomy, Herniorrhaphy, Orthopedic Surgery - Spinal fusion. Meniscus repair., Other - Tracheostomy on 05/19/2017 Denies: Cholecystectomy, Colostomy, Coronary Artery Bypass Graft, Gastric Bypass Surgery, Pacemaker, Tonsillectomy Social History Smoking Status: Never Smoker Frequency of Alcohol Use: Occasional Hx Recreational Drug Use: Yes - Last used dry cocaine 3 months ago Drugs: Cocaine Hx Prescription Drug Abuse: No Family History Family History: Arthritis, CAD - Mother and brother, CVA, DM, Hyperlipidemia, Hypertension, Malignancy Parental Family History Reviewed: Yes - no premature CAD Children Family History Reviewed: No Sibling(s) Family History Reviewed.: No Medication/Allergy Home Medications: Albuterol Sulfate [Proair HFA Inhalation Aerosol 8.5 gm MDI] 2 puff IH Q6HP PRN 08/04/18 Amitriptyline HCl [Elavil 75 mg Tablet] 75 mg PO QHS 08/04/18 Apixaban [Eliquis 5 mg Tablet] 5 mg PO Q12 08/04/18 Ascorbic Acid [Vitamin C 500 mg Tablet] 500 mg PO DAILY 08/04/18 Budesonide/Formoterol Fumarate [Symbicort HFA 160-4.5 mcg Inhaler 6 gm] 2 puff IH Q12 08/04/18 Ferrous Sulfate 324 mg PO DAILY 08/04/18 Fluticasone Propionate [Flonase Nasal [place] 50 Mcg/[place] 16 gm] 1 spray NASL DAILY 08/04/18 Furosemide [Lasix 20 mg Tablet] 20 mg PO DAILY 08/04/18 Gabapentin [Neurontin 300 mg Capsule] 300 mg PO Q8 08/04/18 Hydrochlorothiazide [Hydrodiuril 25 mg Tablet] 25 mg PO DAILY 08/04/18 Insulin Aspart [Novolog Flexpen] 15 units SQ WBRKFST 08/04/18 Insulin Aspart [Novolog Flexpen] 18 units SQ WLUNCH 08/04/18 Insulin Aspart [Novolog Flexpen] 25 units SQ WSUPPER 08/04/18 Insulin Glargine,Hum.rec.anlog [Lantus Insulin 100 Unit/1 ml 10 ml] 50 units SQ QHS 08/04/18 Metformin HCl [Glucophage] 1,000 mg PO BIDBS 08/04/18 Metoprolol Tartrate [Lopressor 50 mg Tablet] 50 mg PO Q12 08/04/18 Omeprazole 40 mg PO DAILY 08/04/18 Pravastatin Sodium [Pravachol] 20 mg PO QHS 08/04/18 Ranitidine HCl [Zantac 150 mg Tablet] 150 mg PO QHS 08/04/18 Tamsulosin HCl [Flomax 0.4 mg Cap.sr] 0.4 mg PO QPM 08/04/18 Tramadol HCl [Ultram 50 mg Tablet] 50 mg PO Q6HP PRN 08/04/18 Amlodipine Besylate [Norvasc 5 mg Tablet] 5 mg PO DAILY #30 tablet 08/06/18 Aspirin [Ecotrin 81 mg EC Tablet] 81 mg PO DAILY tabec 08/06/18 Prednisone [Deltasone 20 mg Tablet] 40 mg PO BID #6 tablet 08/06/18 Isosorbide Mononitrate [Imdur 30 mg Tablet.er] 30 mg PO DAILY 10/28/18 Allergies/Adverse Reactions: codeine [Codeine] Allergy (Severe, Verified 10/06/18 10:35) Facial swelling hydrocodone bitartrate [From Vicodin] Allergy (Severe, Verified 10/06/18 10:35) Anaphylaxis lisinopril Allergy (Severe, Verified 10/06/18 10:35) Anaphylaxis tuberculin, purified protein deriva Allergy (Severe, Verified 10/06/18 10:35) PPD CONVERTER hydromorphone [From Dilaudid] Allergy (Verified 10/06/18 10:35) Difficulty breathing Iodine and Iodide Containing Produc Allergy (Verified 10/06/18 10:35) Anaphylaxis morphine Allergy (Verified 10/06/18 10:35) Itching oxycodone Allergy (Verified 10/06/18 10:35) Swelling of tongue All Opioids Allergy (Uncoded 10/06/18 10:35) Swellling Review of Systems All systems: reviewed and no additional remarkable complaints except as stated - as mentioned in HPI Physical Exam Vital Signs: Temp Pulse Resp BP Pulse Ox 98.3 F 73 24 H 125/76 95 10/28/18 09:31 10/28/18 06:57 10/28/18 12:01 10/28/18 12:00 10/28/18 12:01 Intake & Output 10/27/18 10/28/18 10/29/18 06:59 06:59 06:59 Weight 302 lb 14.642 oz General appearance: PRESENT: no acute distress, obese Head exam: PRESENT: atraumatic, normocephalic Eye exam: PRESENT: conjunctiva pink, EOMI, PERRLA. ABSENT: scleral icterus Ear exam: PRESENT: normal external ear exam Mouth exam: PRESENT: moist, tongue midline Neck exam: ABSENT: carotid bruit, JVD, lymphadenopathy, thyromegaly Respiratory exam: PRESENT: clear to auscultation angelina. ABSENT: rales, rhonchi, wheezes Cardiovascular exam: PRESENT: RRR. ABSENT: diastolic murmur, rubs, systolic murmur Pulses: PRESENT: normal dorsalis pedis pul GI/Abdominal exam: PRESENT: normal bowel sounds, soft. ABSENT: distended, guarding, mass, organolmegaly, rebound, tenderness Rectal exam: PRESENT: deferred Extremities exam: PRESENT: full ROM. ABSENT: calf tenderness, clubbing, pedal edema Neurological exam: PRESENT: alert, awake, oriented to person, oriented to place, oriented to time, oriented to situation, CN II-XII grossly intact. ABSENT: motor sensory deficit Results Laboratory Results: 10/28/18 09:13 10/28/18 09:13 10/28/18 10/28/18 09:13 09:13 WBC 5.8 RBC 4.68 Hgb 13.5 Hct 41.1 MCV 88 MCH 28.8 MCHC 32.8 RDW 15.4 H Plt Count 116 L Seg Neutrophils % 79.1 H Lymphocytes % 15.6 Monocytes % 3.8 Eosinophils % 0.9 Basophils % 0.6 Absolute Neutrophils 4.6 Absolute Lymphocytes 0.9 Absolute Monocytes 0.2 Absolute Eosinophils 0.0 Absolute Basophils 0.0 Sodium 137.9 Potassium 4.2 Chloride 99 Carbon Dioxide 32 H Anion Gap 7 BUN 14 Creatinine 0.76 Est GFR ( Amer) > 60 Est GFR (Non-Af Amer) > 60 Glucose 223 H Calcium 9.0 Total Bilirubin 0.3 AST 16 L ALT 23 Alkaline Phosphatase 87 Total Protein 6.9 Albumin 4.1 Impressions: Chest X-Ray 10/28/18 07:08 IMPRESSION: No acute findings Soft Tissue Neck X-Ray 10/28/18 07:08 IMPRESSION: No acute findings Assessment and Plan - Diagnosis (1) Angioedema Qualifiers: Encounter type: initial encounter Qualified Code(s): T78.3XXA - Angioneurotic edema, initial encounter Is this a current diagnosis for this admission?: Yes Plan: Continue IV Solu-Medrol and Benadryl. (2) CAD (coronary artery disease) Qualifiers: Coronary Disease-Associated Artery/Lesion type: [place] artery [place] vs. transplanted heart: [place] heart Associated angina: angina presence unspecified Qualified Code(s): I25.10 - Atherosclerotic heart disease of [place] coronary artery without angina pectoris Is this a current diagnosis for this admission?: Yes Plan: Resume home meds. (3) COPD (chronic obstructive pulmonary disease) Qualifiers: COPD type: unspecified COPD Qualified Code(s): J44.9 - Chronic obstructive pulmonary disease, unspecified Is this a current diagnosis for this admission?: Yes Plan: Currently not in exacerbation. Breathing treatments as needed. - Time Time Spent with patient: 25-34 minutes
--- NOTE | 2018-10-28 15:34 | ADVANCED CARE ---
- Diagnosis (1) Angioedema Diagnosis Current: Yes (2) CAD (coronary artery disease) Diagnosis Current: Yes (3) COPD (chronic obstructive pulmonary disease) Diagnosis Current: Yes Resuscitation Status: Full Code Discussion: Patient says that he only wants one around/cycle of CPR or defibrillation and verbalized that we should let him go if he is not resuscitated successfully after that. He also says he only wants short-term ventilation if needed but does not prefer to be on long-term mechanical ventilation. He says that his , La is his surrogate medical decision maker.
[2018-10-28] MEDS: HEPARIN SOD (PORCINE) 5,000 UNIT/ML 1 ML VIAL SUBCUT SCH (21:34)
[2018-10-28] MEDS: METHYLPREDNISOLONE INJ 40 MG/1 ML SDV IV SCH (21:35)
[2018-10-28 23:47] VITALS: BP 132/81
[2018-10-29] MEDS: ALBUTEROL SULFATE 0.083% NEB 2.5 MG/3 ML AMPUL NEB SCH ×2 (02:11→08:29)
[2018-10-29] MEDS: DIPHENHYDRAMINE HCL 50 MG/ML VIAL IV SCH ×2 (03:14→09:11)
[2018-10-29] MEDS: INSULIN LISPRO 100 UNIT/ML 3 ML VIAL SUBCUT SCH (09:11)
[2018-10-29] MEDS: HEPARIN SOD (PORCINE) 5,000 UNIT/ML 1 ML VIAL SUBCUT SCH (09:11)
[2018-10-29] MEDS: METHYLPREDNISOLONE INJ 40 MG/1 ML SDV IV SCH (10:18)
[2018-10-29] MEDS ORDERED: DIPHENHYDRAMINE HCL 25 MG/10 ML UDC PO SCH (12:00)
--- NOTE | 2018-10-29 16:01 | PDOC DISCHARGE SUMMARY ---
General - Admit/Disc Date/PCP Admission Date/Primary Care Provider: 10/28/18 12:24 [facility] Discharge Date: 10/29/18 - Discharge Diagnosis (1) Angioedema Is this a current diagnosis for this admission?: Yes (2) CAD (coronary artery disease) Is this a current diagnosis for this admission?: Yes (3) COPD (chronic obstructive pulmonary disease) Is this a current diagnosis for this admission?: Yes - Additional Information Resuscitation Status: Full Code Prescriptions: Azithromycin [Zithromax Tri-Norbert] 500 mg PO DAILY 3 Days #3 pkg Prednisone [Deltasone 20 mg Tablet] 20 mg PO BID 4 Days #8 tablet Home Medications: Albuterol Sulfate [Proair HFA Inhalation Aerosol 8.5 gm MDI] 2 puff IH Q6HP PRN 08/04/18 Amitriptyline HCl [Elavil 75 mg Tablet] 75 mg PO QHS 08/04/18 Apixaban [Eliquis 5 mg Tablet] 5 mg PO Q12 08/04/18 Ascorbic Acid [Vitamin C 500 mg Tablet] 500 mg PO DAILY 08/04/18 Budesonide/Formoterol Fumarate [Symbicort HFA 160-4.5 mcg Inhaler 6 gm] 2 puff IH Q12 08/04/18 Ferrous Sulfate 324 mg PO DAILY 08/04/18 Fluticasone Propionate [Flonase Nasal [place] 50 Mcg/[place] 16 gm] 1 spray NASL DAILY 08/04/18 Furosemide [Lasix 20 mg Tablet] 20 mg PO DAILY 08/04/18 Gabapentin [Neurontin 300 mg Capsule] 300 mg PO Q8 08/04/18 Hydrochlorothiazide [Hydrodiuril 25 mg Tablet] 25 mg PO DAILY 08/04/18 Insulin Aspart [Novolog Flexpen] 15 units SQ WBRKFST 08/04/18 Insulin Aspart [Novolog Flexpen] 18 units SQ WLUNCH 08/04/18 Insulin Aspart [Novolog Flexpen] 25 units SQ WSUPPER 08/04/18 Insulin Glargine,Hum.rec.anlog [Lantus Insulin 100 Unit/1 ml 10 ml] 50 units SQ QHS 08/04/18 Metformin HCl [Glucophage] 1,000 mg PO BIDBS 08/04/18 Metoprolol Tartrate [Lopressor 50 mg Tablet] 50 mg PO Q12 08/04/18 Omeprazole 40 mg PO DAILY 08/04/18 Pravastatin Sodium [Pravachol] 20 mg PO QHS 08/04/18 Ranitidine HCl [Zantac 150 mg Tablet] 150 mg PO QHS 08/04/18 Tamsulosin HCl [Flomax 0.4 mg Cap.sr] 0.4 mg PO QPM 08/04/18 Tramadol HCl [Ultram 50 mg Tablet] 50 mg PO Q6HP PRN 08/04/18 Amlodipine Besylate [Norvasc 5 mg Tablet] 5 mg PO DAILY #30 tablet 08/06/18 Aspirin [Ecotrin 81 mg EC Tablet] 81 mg PO DAILY tabec 08/06/18 Isosorbide Mononitrate [Imdur 30 mg Tablet.er] 30 mg PO DAILY 10/28/18 Azithromycin [Zithromax Tri-Norbert] 500 mg PO DAILY 3 Days #3 pkg 10/29/18 Prednisone [Deltasone 20 mg Tablet] 20 mg PO BID 4 Days #8 tablet 10/29/18 History of Present Illness History of Present Illness: SHANAE TSANG JR is a 62 year old male with a PMH of prior, recurrent angioede ma (previous 8 episodes- from lisinopril and opiates) with a prior episode failing intubation and requiring tracheostomy, history of paroxysmal AFib, 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 Patient says he has been apparently fine until early this morning when he started having bouts of cough and shortness of breath and he noticed that his tongue was swelling. He also had the sensation of throat tightness. He was brought into the ER and he was given Benadryl, IV steroids and breathing treatments. He did get relief but still says that he had some throat tightness. He has a cuffed trach. Upon encounter, he appears comfortable and is saturating well on room air. He denies any recent new medication or medication changes. Denies any potential food triggers for his episode this morning. Hospital Course Hospital Course: Patient was treated in the ER for angioedema. He did get significant relief from the steroids, Benadryl and breathing treatments in the ER. However he still had some minimal tightness on the throat hence was observed for a night. He was continued on IV steroids and Benadryl. He significantly improved and returned to his baseline with no acute issues. He will be discharged on a short course of prednisone. He did complain of increasing yellowish productive sputum from his trach tube and will discharged on a short course of azithromycin. Physical Exam Vital Signs: Temp Pulse Resp BP Pulse Ox 98.6 F 110 H 18 132/81 H 99 10/28/18 23:46 10/29/18 08:31 10/29/18 08:31 10/28/18 23:46 10/29/18 08:31 Intake & Output 10/28/18 10/29/18 10/30/18 06:59 06:59 06:59 Intake Total 720 Balance 720 Weight 302 lb 14.642 oz 302 lb 14.642 oz General appearance: PRESENT: no acute distress, obese Head exam: PRESENT: atraumatic, normocephalic Eye exam: PRESENT: conjunctiva pink, EOMI, PERRLA. ABSENT: scleral icterus Ear exam: PRESENT: normal external ear exam Mouth exam: PRESENT: moist, tongue midline Neck exam: ABSENT: carotid bruit, JVD, lymphadenopathy, thyromegaly Respiratory exam: PRESENT: clear to auscultation angelina. ABSENT: rales, rhonchi, wheezes Cardiovascular exam: PRESENT: RRR. ABSENT: diastolic murmur, rubs, systolic murmur Pulses: PRESENT: normal dorsalis pedis pul GI/Abdominal exam: PRESENT: normal bowel sounds, soft. ABSENT: distended, guarding, mass, organolmegaly, rebound, tenderness Rectal exam: PRESENT: deferred Extremities exam: PRESENT: full ROM. ABSENT: calf tenderness, clubbing, pedal edema Neurological exam: PRESENT: alert, awake, oriented to person, oriented to place, oriented to time, oriented to situation, CN II-XII grossly intact. ABSENT: motor sensory deficit Results Laboratory Results: 10/28/18 09:13 10/28/18 09:13 Impressions: Chest X-Ray 10/28/18 07:08 IMPRESSION: No acute findings Soft Tissue Neck X-Ray 10/28/18 07:08 IMPRESSION: No acute findings Qualifiers - * PATIENT BEING DISCHARGED WITH ANY OF THE FOLLOWING DIAGNOSIS: No Acute Heart Failure - Is this a Heart Failure Patient?: No LVEF < 40%?: No- if no continue to question #3 3. Anticoagulant therapy for permanect/persistent/paraoxysmal Afib or Aflutter: N/A
--- NOTE | 2018-10-30 09:22 | EKG REPORT ---
SEVERITY:- BORDERLINE ECG - SINUS RHYTHM PROBABLE LEFT ATRIAL ABNORMALITY BORDERLINE T ABNORMALITIES, INFERIOR LEADS : Confirmed by: Elias Arce MD 30-Oct-2018 09:22:26
--- NOTE | 2018-10-30 09:23 | EKG REPORT ---
SEVERITY:- ABNORMAL ECG - SINUS RHYTHM ATRIAL PREMATURE COMPLEX LEFT VENTRICULAR HYPERTROPHY BORDERLINE T ABNORMALITIES, INFERIOR LEADS : Confirmed by: Elias Arce MD 30-Oct-2018 09:22:39
== END 2018-10-29 10:59 | disposition home or self-care (01) ==
LOC: ER 06:54 → EH 12:24 → 5 17:19
PROVIDERS: ADMIT Internal Medicine; ATTEND Internal Medicine
DX: T78.3XXA Angioneurotic edema, initial encounter (principal); I25.10 Atherosclerotic heart disease of native coronary artery without angina pectoris; J44.9 Chronic obstructive pulmonary disease, unspecified; I11.0 Hypertensive heart disease with heart failure; I50.9 Heart failure, unspecified; E11.65 Type 2 diabetes mellitus with hyperglycemia; I48.91 Unspecified atrial fibrillation; E66.9 Obesity, unspecified; R06.82 Tachypnea, not elsewhere classified; D69.6 Thrombocytopenia, unspecified; K21.9 Gastro-esophageal reflux disease without esophagitis; Z79.4 Long term (current) use of insulin; Z79.899 Other long term (current) drug therapy; Z79.02 Long term (current) use of antithrombotics/antiplatelets; Z79.82 Long term (current) use of aspirin; Z86.718 Personal history of other venous thrombosis and embolism; Z86.711 Personal history of pulmonary embolism; Z86.19 Personal history of other infectious and parasitic diseases; Z43.0 Encounter for attention to tracheostomy; Z86.11 Personal history of tuberculosis; Z87.09 Personal history of other diseases of the respiratory system; Z87.01 Personal history of pneumonia (recurrent); Z90.49 Acquired absence of other specified parts of digestive tract
CPT/HCPCS: 93005; 96376; 94640 ×4; 99285; 96374; 96375; 36415; 82962 ×2; 85025; 85610; 80053; 71045; 70360; 93010; G0378 ×3; J1200 ×2; J1815 ×2; J2920; J2930; J3490; S0028; J7620

== ENCOUNTER 2018-11-22 05:45 | Emergency (ER) | payer OTHER ==
[2018-11-22] MEDS ORDERED: METHYLPREDNISOLONE INJ 125 MG/2 ML SDV IV ONE (06:53)
[2018-11-22] MEDS ORDERED: IPRATROPIUM/ALBUTEROL 0.5-2.5 MG/3 ML AMPUL NEB ONE (06:53)
--- NOTE | 2018-11-22 07:09 | ER Document Report ---
ED Respiratory Problem - General Chief Complaint: Shortness Of Breath Stated Complaint: SHORTNESS OF BREATH Time Seen by Provider: 11/22/18 06:18 Primary Care Provider: JONY,MIL [Primary Care Provider] - Follow up as needed Notes: 62-year-old male with a history of angioedema and tracheostomy presents with increasing mucus production and shortness of breath. The patient denies fever chills. Denies chest pain. Denies abdominal pain always has edema states it is no worse than normal. States been coughing up some thick white sputum. Usually he can clear it out every day he struggles with it but it has been going on the last several days more so than he would like. The patient denies any falls or trauma. Denies any new medications. TRAVEL OUTSIDE OF THE [place] IN LAST 30 DAYS: No - Related Data Allergies/Adverse Reactions: codeine [Codeine] Allergy (Severe, Verified 11/22/18 07:12) Facial swelling hydrocodone bitartrate [From Vicodin] Allergy (Severe, Verified 11/22/18 07:12) Anaphylaxis lisinopril Allergy (Severe, Verified 11/22/18 07:12) Anaphylaxis tuberculin, purified protein deriva Allergy (Severe, Verified 11/22/18 07:12) PPD CONVERTER hydromorphone [From Dilaudid] Allergy (Verified 11/22/18 07:12) Difficulty breathing Iodine and Iodide Containing Produc Allergy (Verified 11/22/18 07:12) Anaphylaxis morphine Allergy (Verified 11/22/18 07:12) Itching oxycodone Allergy (Verified 11/22/18 07:12) Swelling of tongue All Opioids Allergy (Uncoded 11/22/18 07:12) Swellling Past Medical History - Social History Smoking Status: Unknown if Ever Smoked Family History: Arthritis, CAD - Mother and brother, CVA, DM, Hyperlipidemia, Hypertension, Malignancy - Past Medical History Cardiac Medical History: Reports: Hx Atrial Fibrillation, Hx Congestive Heart Failure, Hx Hypercholesterolemia, Hx Hypertension, Hx Pulmonary Embolism Pulmonary Medical History: Reports: Hx Asthma, Hx COPD, Hx Pneumonia - 7 years ago, Hx Sleep Apnea - hx only, not a current problem, no CPAP, Hx Tuberculosis Neurological Medical History: Reports: Hx Cerebrovascular Accident - Pt states no deficits Endocrine Medical History: Reports: Hx Diabetes Mellitus Type 2 Renal/ Medical History: Reports: Hx Kidney Stones - 1981. Denies: Hx Peritoneal Dialysis Malignancy Medical History: Denies Hx Lung Cancer GI Medical History: Reports: Hx Gastroesophageal Reflux Disease, Hx Hepatitis - Hep C, Hx Pancreatitis - 1988, Hx Ulcer Musculoskeletal Medical History: Reports Hx Arthritis - Back , Reports Hx Musculoskeletal Deformity, Reports Hx Musculoskeletal Trauma, Denies Hx Systemic Lupus Erythematosus Skin Medical History: Denies Hx Psoriasis Psychiatric Medical History: Denies: Hx Bipolar Disorder, Hx Dementia, Hx Depression, Hx Post Traumatic Stress Disorder, Hx Schizophrenia Traumatic Medical History: Reports: Hx Fractures, Hx Spine Fracture. Denies: Hx Traumatic Brain Injury Infectious Medical History: Reports: Hx Hepatitis - Hep C Past Surgical History: Reports: Hx Abdominal Surgery - Hernia repair, bowel resection, Hx Appendectomy, Hx Bowel Surgery - bowel resection 1988, Hx Herniorrhaphy, Hx Oral Surgery, Hx Orthopedic Surgery - Spinal fusion. Meniscus repair., Other - Tracheostomy on 05/19/2017. Denies: Hx Cholecystectomy, Hx Colostomy, Hx Coronary Artery Bypass Graft, Hx Gastric Bypass Surgery, Hx Pacemaker, Hx Tonsillectomy - Immunizations Immunizations up to date: Yes Hx Diphtheria, Pertussis, Tetanus Vaccination: Yes Hx Pneumococcal Vaccination: 04/12/17 Review of Systems - Review of Systems Constitutional: denies: Chills, Fever EENT: denies: Nose congestion, Throat pain Respiratory: Cough, Short of breath. denies: Hemoptysis Gastrointestinal: denies: Abdominal pain, Diarrhea, Nausea, Vomiting Genitourinary: denies: Dysuria, Hematuria Skin: denies: Rash Neurological/Psychological: denies: Headaches -: Yes All other systems reviewed and negative Physical Exam - Vital signs Vitals: Temp Pulse Resp BP Pulse Ox 98.1 F 95 22 H 125/77 99 11/22/18 05:51 11/22/18 05:51 11/22/18 05:51 11/22/18 05:51 11/22/18 05:51 - Notes Notes: GENERAL_APPEARANCE: well_nourished, alert, cooperative VITALS: reviewed, see vital signs table. HEAD: no_swelling\tenderness on the head. EYES: PERRL, EOMI, conjunctiva_clear. NOSE: no_nasal_discharge. MOUTH: (-)decreased moisture. THROAT: no_tonsilar_inflammation, no_airway_obstruction. no_lymphadenopathy, tracheostomy present does not look infected NECK: supple, no_neck_tenderness, (-)thyromegaly. BACK: no_back_tenderness. CHEST_WALL: no_chest_tenderness. LUNGS: Scant_wheezing, no_rales, no_rhonchi, (-)accessory muscle use, good air exchange bilateral. HEART: normal_rate, normal_rhythm, normal_S1, normal_S2, (-)S3, (-)S4, no_murmur, no_rub. ABDOMEN: normal_BS, soft, no_abd_tenderness, (-)guarding, (-)rebound, no_organomegaly, no_abd_masses. EXTREMITIES: good pulses in all_extremities, no_swelling\tenderness in the extremities, 2+_edema. SKIN: warm, dry, good_color, no_rash. MENTAL_STATUS: speech_clear, oriented_X_3, normal_affect, responds_appropriat kaushik to questions. Course - Re-evaluation Re-evalutation: 11/22/18 07:08 62-year-old male presents to the ER complaining of difficulty breathing. The patient has a tracheostomy due to frequent episodes of angioedema he had one pa rticular bad episode where he could not be intubated and they had to trach him. Since then he has had a trach in and they have been too scared to take it out patient has no facial swelling or tongue swelling today his main complaint is increased secretions and shortness of breath with the trach we will give the patient aerosol treatments. We will suction the trach. We will check for pneumonia or other etiologies however the patient does not have any fever no chills. Mucus has been white. 11/22/18 10:43 The patient was observed for several hours and seems to be doing better. He feels comfortable going home. There is no pneumonia on x-ray no leukocytosis. No oxygen requirements. No distress. The patient was placed on antibiotics and steroids more as a prophylaxis. Patient states he is enough aerosol treatments at home. He is comfortable going home. - Vital Signs Vital signs: Temp Pulse Resp BP Pulse Ox 98.4 F 90 15 128/72 H 97 11/22/18 08:00 11/22/18 09:00 11/22/18 10:00 11/22/18 09:38 11/22/18 10:00 - Laboratory Result Diagrams: 11/22/18 09:35 11/22/18 09:35 Laboratory results interpreted by me: 11/22/18 11/22/18 09:35 09:35 RBC 4.30 L Hgb 12.5 L Hct 37.8 L RDW 15.2 H Sodium 136.7 L Glucose 219 H Calcium 8.0 L - Diagnostic Test Radiology reviewed: Reports reviewed Radiology results interpreted by me: 11/22/18 10:42 Chest X-Ray 11/22/18 06:53 IMPRESSION: No significant change including chronic moderate opacity at the medial right lower lung field. - EKG Interpretation by Me EKG shows normal: Sinus rhythm Rate: Normal Rhythm: NSR Discharge - Discharge Clinical Impression: COPD exacerbation Condition: Good Disposition: HOME, SELF-CARE Instructions: Chronic Obstructive Lung Disease ([facility]) Additional Instructions: Continue with suctioning and aerosol treatments. Take the antibiotics and prednisone I prescribed to you. If you do not improve or worse return to the ER immediately. Prescriptions: Azithromycin [Zithromax 250 mg Tablet] 250 mg PO ASDIR PRN #6 tablet PRN Reason: Prednisone [Deltasone 20 mg Tablet] 3 tab PO DAILY 5 Days tablet [facility]errals: [facility] [Primary [facility]] - Follow up as needed
--- NOTE | 2018-11-22 07:37 | RADIOLOGY REPORT (SQ) ---
EXAM DESCRIPTION: XR CHEST 1 VIEW COMPLETED DATE/TME: 11/22/2018 06:53 CLINICAL HISTORY: 62 years Male, SOB COMPARISON: CT, 06/20/18. 10/28/18, 03/26/17. NUMBER OF VIEWS/TECHNIQUE: 1/AP FINDINGS: Chronic patchy opacity of the medial right lower lung field. Small obscuration-effusion of the right costophrenic angle. Prominent cardiac silhouette. Tracheostomy. No pneumothorax. Stable bony thorax. IMPRESSION: No significant change including chronic moderate opacity at the medial right lower lung field.
[2018-11-22] MEDS: ALBUTEROL SULFATE 0.083% NEB 2.5 MG/3 ML AMPUL NEB SCH ×2 (07:46→08:15)
--- NOTE | 2018-11-22 09:35 | EKG REPORT ---
SEVERITY:- ABNORMAL ECG - SINUS RHYTHM PROBABLE LEFT ATRIAL ABNORMALITY PROBABLE LEFT VENTRICULAR HYPERTROPHY : Confirmed by: Brad Piper 22-Nov-2018 09:34:38
[2018-11-22 09:50] LABS: ABSOLUTE EOSINOPHILS # (AUTO) 0.1 10^3/uL (0.0-0.6); ABSOLUTE LYMPHOCYTES (AUTO) 1.5 10^3/uL (0.5-4.7); ABSOLUTE MONOCYTES (AUTO) 0.6 10^3/uL (0.1-1.4); ABSOLUTE NEUT (AUTO) 3.7 10^3/uL (1.7-8.2); BASOPHILS % (AUTO) 0.7 % (0-2); EOSINOPHILS % (AUTO) 1.3 % (0-6); HEMATOCRIT 37.8 % (37.9-51.0); HEMOGLOBIN 12.5 g/dL (13.5-17.0); LYMPHOCYTES % (AUTO) 25.6 % (13-45); MEAN CORPUSCULAR HEMOGLOBIN 29.1 pg (27.0-33.4); MEAN CORPUSCULAR HGB CONC 33.2 g/dL (32.0-36.0); MEAN CORPUSCULAR VOLUME 88 fl (80-97); MONOCYTES % (AUTO) 10.7 % (3-13); PLATELET COUNT 173 10^3/uL (150-450); RED CELL DISTRIBUTION WIDTH 15.2 % (11.5-14.0); SEGMENTED NEUTROPHILS % (AUTO) 61.7 % (42-78); TOTAL CELLS COUNTED % (AUTO) 100 %
[2018-11-22 10:09] LABS: INTERNATIONAL RATION (INR) 1.04; PROTHROMBIN TIME 13.6 SEC (11.4-15.4)
[2018-11-22 10:12] LABS: ALKALINE PHOSPHATASE 78 U/L (38-126); ANION GAP 9 (5-19); ASPARTATE AMINO TRANSFERASE 25 U/L (17-59); BILIRUBIN,DIRECT 0.2 mg/dL (0.0-0.4); BILIRUBIN,TOTAL 0.3 mg/dL (0.2-1.3); BLOOD UREA NITROGEN 13 mg/dL (7-20); CARBON DIOXIDE 30 mmol/L (22-30); CHLORIDE 98 mmol/L (98-107); GLUCOSE 219 mg/dL (75-110); POTASSIUM 3.7 mmol/L (3.6-5.0)
[2018-11-22 10:24] LABS: NT PRO BNP 42 pg/mL (5-900)
[2018-11-22 10:26] LABS: TROPONIN I < 0.012 ng/mL
[2018-11-22 11:01] VITALS: BP 139/78
== END 2018-11-22 11:07 | disposition home or self-care (01) ==
LOC: ER 05:45
DX: J44.1 Chronic obstructive pulmonary disease with (acute) exacerbation (principal); R06.02 Shortness of breath; R05 Cough; I10 Essential (primary) hypertension; E11.9 Type 2 diabetes mellitus without complications; Z93.0 Tracheostomy status; Z87.892 Personal history of anaphylaxis; Z86.711 Personal history of pulmonary embolism; Z87.01 Personal history of pneumonia (recurrent); Z88.5 Allergy status to narcotic agent; Z88.8 Allergy status to other drugs, medicaments and biological substances; Z88.7 Allergy status to serum and vaccine
CPT/HCPCS: 93005; 94640 ×2; 99285; 96374; 36415; 85025; 85610; 80053; 84484; 83880; 71045; 93010; J2930; J7620

== ENCOUNTER 2019-01-11 07:41 | Observation (INO) | payer OTHER ==
[2018-12-23 11:13] LABS: ABSOLUTE EOSINOPHILS # (AUTO) 0.1 10^3/uL (0.0-0.6); ABSOLUTE LYMPHOCYTES (AUTO) 1.6 10^3/uL (0.5-4.7); ABSOLUTE MONOCYTES (AUTO) 0.8 10^3/uL (0.1-1.4); ABSOLUTE NEUT (AUTO) 5.2 10^3/uL (1.7-8.2); BASOPHILS % (AUTO) 0.4 % (0-2); EOSINOPHILS % (AUTO) 1.6 % (0-6); HEMATOCRIT 40.9 % (37.9-51.0); HEMOGLOBIN 13.5 g/dL (13.5-17.0); LYMPHOCYTES % (AUTO) 20.9 % (13-45); MEAN CORPUSCULAR HEMOGLOBIN 28.9 pg (27.0-33.4); MEAN CORPUSCULAR VOLUME 87 fl (80-97); PLATELET COUNT 131 10^3/uL (150-450); RED BLOOD COUNT 4.68 10^6/uL (4.35-5.55); RED CELL DISTRIBUTION WIDTH 14.8 % (11.5-14.0); SEGMENTED NEUTROPHILS % (AUTO) 67.1 % (42-78); TOTAL CELLS COUNTED % (AUTO) 100 %; WHITE BLOOD COUNT 7.7 10^3/uL (4.0-10.5)
[2018-12-23 11:26] LABS: ANION GAP 11 (5-19); BLOOD UREA NITROGEN 13 mg/dL (7-20); CALCIUM 9.4 mg/dL (8.4-10.2); CARBON DIOXIDE 31 mmol/L (22-30); CHLORIDE 97 mmol/L (98-107); GLUCOSE 166 mg/dL (75-110); POTASSIUM 4.2 mmol/L (3.6-5.0)
--- NOTE | 2018-12-23 13:12 | RADIOLOGY REPORT (SQ) ---
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 TECHNIQUE: Frontal and lateral radiographic views of the chest acquired. LIMITATIONS: None. FINDINGS: LUNGS AND PLEURA: Apical pleural thickening. Prominent epicardial fat pad. No evidence o f pulmonary edema or pneumonia. MEDIASTINUM AND HILAR STRUCTURES: Stable. HEART AND VASCULAR STRUCTURES: Heart enlarged without failure. Aorta normal for age. BONES: No acute findings. HARDWARE: None in the chest. OTHER: No other significant finding. IMPRESSION: No acute findings in the chest. TECHNICAL DOCUMENTATION: JOB ID: [id number] [employer]- All Rights Reserved Reading location - IP/workstation name: [email or web address]
--- NOTE | 2018-12-23 23:00 | EKG REPORT ---
SEVERITY:- NORMAL ECG - SINUS RHYTHM : Confirmed by: Dee Dee Ahmadi MD 23-Dec-2018 22:59:29
[~2019-01-11 07:41] MED LIST changes: -CEFAZOLIN SODIUM 2 GM in DEXTROSE 5%-WATER 100 ML IV SCH; +CLINDAMYCIN 900 MG/D5W RTU 900 MG/50 ML RTUPB IV PRN; +LACTATED RINGERS 1000 ML IV PRN; +LIDOCAINE 0.5% INJ-PF (5 MG/ML) 50 ML SDV SUBCUT PRN; -RINGERS SOLUTION,LACTATED 1,000 ML IV PRN
[2019-01-11] MEDS ORDERED: CLINDAMYCIN 900 MG/D5W RTU 900 MG/50 ML RTUPB IV ONE (08:10)
[2019-01-11] MEDS ORDERED: MIDAZOLAM 2 MG/2 ML INJ ONE (08:43)
[2019-01-11] MEDS ORDERED: DEXAMETHASONE SOD PHOSPHATE INJ 4 MG/1 ML VIAL ONE ×2 (08:43→10:57)
[2019-01-11] MEDS ORDERED: FENTANYL CITRATE INJ/PF 100 MCG/2 ML AMPUL ONE (08:43)
[2019-01-11] MEDS ORDERED: PROPOFOL INJ 200 MG/20 ML VIAL IV ONE ×2 (08:43→15:12)
[2019-01-11] MEDS ORDERED: SUCCINYLCHOLINE CHLORIDE INJ 200 MG/10 ML VIAL ONE (10:00)
[2019-01-11] MEDS ORDERED: TRIAMCINOLONE ACETONIDE INJ 40 MG/1 ML VIAL ONE (10:09)
[2019-01-11] MEDS ORDERED: OXYMETAZOLINE HCL 0.05% NASAL SPRAY 15 ML BOTTLE ONE (10:09)
[2019-01-11] MEDS ORDERED: LIDOCAINE 2%/EPINEPHRINE INJ 1.7 ML CARTRIDGE ONE ×2 (10:34→10:53)
[2019-01-11] MEDS ORDERED: KETOROLAC TROMETHAMINE 60 MG/2 ML SDV ONE (10:57)
[2019-01-11] MEDS ORDERED: ONDANSETRON HCL INJ/PF 4 MG/2 ML SDV ONE (10:57)
[2019-01-11] MEDS ORDERED: DIPHENHYDRAMINE HCL 50 MG/ML VIAL IV PRN (12:28)
[2019-01-11] MEDS ORDERED: LIDOCAINE 2% INJ-PF (100 MG/5 ML) SYRINGE ONE (15:17)
[2019-01-11] MEDS ORDERED: TRAMADOL HCL 50 MG TABLET PO PRN ×2 (17:24→19:02)
[2019-01-11] MEDS ORDERED: ONDANSETRON HCL INJ/PF 4 MG/2 ML SDV IV PRN (17:25)
[2019-01-11] MEDS ORDERED: INFLUENZA QUAD (6MOS+) 2019-20 VAC 0.5 ML SYR IM ONE (17:45)
[2019-01-11] MEDS ORDERED: ALBUTEROL SULFATE 0.083% NEB 2.5 MG/3 ML AMPUL NEB ONE (18:41)
[2019-01-11] MEDS ORDERED: ALBUTEROL SULFATE HFA (90 MCG/PUFF) 200 PUFF/8.5 GM MDI IH PRN (19:02)
[2019-01-11] MEDS ORDERED: (PENDING PHARMACY ID) (Ranitidine Hcl [Zantac 150 Mg Tablet] 150 MG) PO SCH (22:00)
[2019-01-11] MEDS: ATORVASTATIN CALCIUM 10 MG TABLET PO SCH (22:21)
[2019-01-11] MEDS: GABAPENTIN 300 MG CAPSULE PO SCH (22:21)
[2019-01-11] MEDS: FAMOTIDINE 20 MG TABLET PO SCH (22:21)
[2019-01-11] MEDS: AMITRIPTYLINE HCL 75 MG TABLET PO SCH (22:22)
[2019-01-11] MEDS: INSULIN GLARGINE,HUM.REC.ANLOG 1,000 UNIT/10 ML VIAL SUBCUT SCH (22:22)
[2019-01-11] MEDS: METOPROLOL TARTRATE 50 MG TABLET PO SCH (22:27)
[2019-01-11] MEDS: ALBUTEROL SULFATE 0.083% NEB 2.5 MG/3 ML AMPUL NEB PRN (23:48)
[2019-01-12] MEDS: GABAPENTIN 300 MG CAPSULE PO SCH ×3 (06:16→21:57)
[2019-01-12] MEDS: PANTOPRAZOLE SODIUM 40 MG TABLET.DR PO SCH (06:16)
[2019-01-12] MEDS ORDERED: (PENDING PHARMACY ID) (Insulin Aspart [Novolog Flexpen] 15 UNITS) SQ SCH (08:00)
[2019-01-12] MEDS: ALBUTEROL SULFATE 0.083% NEB 2.5 MG/3 ML AMPUL NEB PRN ×2 (09:02→17:19)
[2019-01-12] MEDS: INSULIN LISPRO 100 UNIT/ML 3 ML VIAL SUBCUT SCH ×3 (09:42→17:47)
[2019-01-12] MEDS: METFORMIN HCL 500 MG TABLET PO SCH ×2 (09:42→17:38)
[2019-01-12] MEDS: ISOSORBIDE MONONITRATE 30 MG TAB.ER.24H PO SCH (09:51)
[2019-01-12] MEDS: FUROSEMIDE 20 MG TABLET PO SCH (09:51)
[2019-01-12] MEDS: FERROUS SULFATE 325 MG TABLET PO SCH (09:51)
[2019-01-12] MEDS: ASPIRIN 81 MG TABLET, ENT COATED PO SCH (09:51)
[2019-01-12] MEDS: METOPROLOL TARTRATE 50 MG TABLET PO SCH ×2 (09:51→21:57)
[2019-01-12] MEDS: AMLODIPINE BESYLATE 5 MG TABLET PO SCH (09:51)
[2019-01-12] MEDS: HYDROCHLOROTHIAZIDE 25 MG TABLET PO SCH (09:51)
[2019-01-12] MEDS: ASCORBIC ACID 500 MG TABLET PO SCH (09:51)
[2019-01-12] MEDS: FLUTICASONE NASAL SPRAY 50 MCG/SPRY 120 SPRAY/16 GM NASL SCH (09:52)
[2019-01-12] MEDS: FLUTICASONE/VILANTEROL 200-25 MCG/DOSE IH SCH (09:52)
[2019-01-12] MEDS: DEXAMETHASONE 4 MG TABLET PO SCH (09:52)
[2019-01-12] MEDS ORDERED: (PENDING PHARMACY ID) (Insulin Aspart [Novolog Flexpen] 18 UNITS) SQ SCH (12:00)
[2019-01-12] MEDS ORDERED: INSULIN ASPART 25 UNIT SQ SCH (17:00)
[2019-01-12] MEDS: TAMSULOSIN HCL 0.4 MG CAP.SR.24H PO SCH (18:58)
[2019-01-12] MEDS: INSULIN GLARGINE,HUM.REC.ANLOG 1,000 UNIT/10 ML VIAL SUBCUT SCH (21:56)
[2019-01-12] MEDS: FAMOTIDINE 20 MG TABLET PO SCH (21:57)
[2019-01-12] MEDS: ATORVASTATIN CALCIUM 10 MG TABLET PO SCH (21:57)
[2019-01-12] MEDS: AMITRIPTYLINE HCL 75 MG TABLET PO SCH (21:57)
[2019-01-13] MEDS: ALBUTEROL SULFATE 0.083% NEB 2.5 MG/3 ML AMPUL NEB PRN ×2 (00:05→11:56)
[2019-01-13] MEDS: GABAPENTIN 300 MG CAPSULE PO SCH ×3 (06:34→21:47)
[2019-01-13] MEDS: PANTOPRAZOLE SODIUM 40 MG TABLET.DR PO SCH (06:34)
[2019-01-13] MEDS: INSULIN LISPRO 100 UNIT/ML 3 ML VIAL SUBCUT SCH ×3 (08:35→17:34)
[2019-01-13] MEDS: METFORMIN HCL 500 MG TABLET PO SCH ×2 (08:35→17:34)
[2019-01-13] MEDS: HYDROCHLOROTHIAZIDE 25 MG TABLET PO SCH (10:11)
[2019-01-13] MEDS: ISOSORBIDE MONONITRATE 30 MG TAB.ER.24H PO SCH (10:11)
[2019-01-13] MEDS: METOPROLOL TARTRATE 50 MG TABLET PO SCH ×2 (10:11→21:48)
[2019-01-13] MEDS: AMLODIPINE BESYLATE 5 MG TABLET PO SCH (10:11)
[2019-01-13] MEDS: ASPIRIN 81 MG TABLET, ENT COATED PO SCH (10:11)
[2019-01-13] MEDS: ASCORBIC ACID 500 MG TABLET PO SCH (10:11)
[2019-01-13] MEDS: FERROUS SULFATE 325 MG TABLET PO SCH (10:12)
[2019-01-13] MEDS: FUROSEMIDE 20 MG TABLET PO SCH (10:12)
[2019-01-13] MEDS: DEXAMETHASONE 4 MG TABLET PO SCH (10:13)
[2019-01-13] MEDS: FLUTICASONE/VILANTEROL 200-25 MCG/DOSE IH SCH ×2 (10:13→10:23)
[2019-01-13] MEDS: FLUTICASONE NASAL SPRAY 50 MCG/SPRY 120 SPRAY/16 GM NASL SCH (10:13)
[2019-01-13] MEDS: TAMSULOSIN HCL 0.4 MG CAP.SR.24H PO SCH (17:34)
[2019-01-13] MEDS ORDERED: DEXAMETHASONE 4 MG TABLET PO ONE (21:00)
[2019-01-13] MEDS: INSULIN GLARGINE,HUM.REC.ANLOG 1,000 UNIT/10 ML VIAL SUBCUT SCH (21:46)
[2019-01-13] MEDS: FAMOTIDINE 20 MG TABLET PO SCH (21:47)
[2019-01-13] MEDS: AMITRIPTYLINE HCL 75 MG TABLET PO SCH (21:48)
[2019-01-13] MEDS: ATORVASTATIN CALCIUM 10 MG TABLET PO SCH (21:48)
[2019-01-14] MEDS: PANTOPRAZOLE SODIUM 40 MG TABLET.DR PO SCH (05:07)
[2019-01-14] MEDS: GABAPENTIN 300 MG CAPSULE PO SCH (05:08)
[2019-01-14] MEDS: ALBUTEROL SULFATE 0.083% NEB 2.5 MG/3 ML AMPUL NEB PRN (08:45)
--- NOTE | 2019-01-14 09:29 | Operative Report ---
Operative Report-[facility] Operative Report: DATE OF OPERATION: January 11, 2019 PREOPERATIVE DIAGNOSIS: 1. Tracheostomy tube dependence 2. History of angioneurotic edema 3. 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 History of recurrent tracheostomy site granulation tissue 5. Excessive tracheostomy site scar tissue/keloid scar tissue 6. Tracheostomy site stenosis 7. 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 Tracheostomy tube dependence 2. History of angioneurotic edema 3. 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 History of recurrent tracheostomy site granulation tissue 5. Excessive tracheostomy site scar tissue/keloid scar tissue 6. Tracheostomy site stenosis 7. 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 Tracheostomy revision 2. Tracheal papilloma/polyp tumors removed 3. Scar tissue/keloid scar tissue removal 4. Exam under anesthesia of the upper airway 5. Increased case length due to excessive BMI of 40.2 Primary Surgeon of Record: Dr. Hernandez Escalona OUTREACH PROFESSIONAL: None Anesthesia Staff: BERTO Manning ANESTHESIA: General Endotracheal Tube Anesthesia DRAINS: None SPONGE COUNT: Verified Needle Count: N/A SPECIMEN/MATERIALS FORWARD TO THE LAB: 1. Tracheostomy site granulation tissue and what appeared to be possible papillomatous/polyp tissue. 2. Tracheostomy site scar tissue/keloid scar tissue. 3. Inner left tracheostomy site papillomatous/polyp neoplasm/tumors removed with request for cancer, and HPV typing to screen for 6, 11, 16, 18, 31, and 33. ESTIMATED BLOOD LOSS: 10 mL IV FLUIDS: 800 mL COMPLICATIONS: None Findings: 1. Excessive oropharyngeal/hypopharyngeal/tongue/base of tongue tissues with increased difficulty of attempted direct laryngoscopy. The TVC/arytenoids appeared grossly unremarkable. The microscopic direct laryngoscopy portion of the case was stopped at this point. The patient is with very poor dentition and is edentulous at the upper/maxilla and is with varied dentition along the lower/mandible. 2. The tracheostomy site was with gross deformities of scar tissue/keloid scar tissue/excessive redundant tissue, granulation tissue, findings of polyps/papillomas, and tracheostomy site stenosis and a Shiley #6 XLT cuffless trach present. INDICATIONS: This is a 63-year-old Afro-[place]e male patient who was seen evaluated, and followed in the [facility] and the [facility] office by Dr. Humphries. The patient has been with a history of LAURY/angioneurotic edema, and history of recurrent anaphylaxis with multiple different medications to include narcotics such as oxycodone and morphine, and lisinopril and required emergent tracheostomy in 2017 at [facility] by general surgery. He was eventually referred for ENT care from Dr. Humphries due to ongoing trach/tracheostomy site difficulty as noted above. The patient has been managed extensively in an outpatient setting in ENT with tracheostomy care/exchanges/granulation tissue removal. The patient has been with a Shiley #6 XLT cuffless trach. The tracheostomy site changes have become significantly more difficult over time and granulation tissue buildup has increased. During his last clinic evaluation he was also noted to have papillomatous/polyp tumors at the left inner aspect of his tracheostomy site. Flexible endoscopy did not reveal any other additional papillomatous type changes of the upper airway or upper pulmonary tree. The patient has also expressed ongoing difficulty mobilizing secreations/mucus from/through his trach site and ENT and Pulmonary medicine requested a home trach humidification set-up which the patient has not yet received. After extensive discussion with the patient and his the recommendation and plan was to proceed to the main operating room for tracheostomy site revision, exam under anesthesia of the upper airway, removal of granulation tissue and scar tissue, removal of papillomatous/polyp tumors which will be sent for HPV typing, microscopic direct laryngoscopy with possible subglottiscope use, and possible cidofovir use. The procedures and all of the risks and complications were all discussed in detail with the patient and his . They voiced an understanding of the described surgical plan, were in agreement, and consent was obtained. DESCRIPTION OF OPERATIVE PROCEDURE: The patient was taken to the main operating room and was placed on the operating room table in the supine position. Appropriate monitors were placed. Using IV access and the circuit attached to the tracheostomy tube general anesthesia was induced. The table was then rotated 90 and the patient was positioned and prepped for upper air/laryngeal and tracheostomy site surgery. There was extra time involved throughout the case with positioning of the patient based on increased BMI as noted above. The lips, teeth, tongue, and gums were inspected with findings as noted above. The re was moist gauze placed over the patient's upper gums and various rigid laryngoscopes were passed with an attempt to place the patient into an direct suspension which was not successful due to excessive prominence of oropharyngeal and hypopharyngeal tissues. Findings are as noted above. At this point this portion of the procedure was stopped in the microscopic direct laryngoscopy and subglottiscope portion of the case was not able to be completed. At this point the kaleidoscope was used to transorally intubate and exchange the tracheostomy tube for the endotracheal tube which was completed. At this point attention was turned to performing the tracheostomy site revision with excessive redundant tissue, scar tissue/keloid scar tissue, granulation tissue, and possible papillomatous tissue was all removed and passed for permanent pathology evaluation. Soft tissue was gently dissected away from tracheal cartilage followed by use of scissors to release superior lateral tracheal cartilage on each side as well as to trim cartilage edges which were identified during the case. Scar cicatrix was also released during this process. At this point the inner left aspect of the tracheostomy site could be visualized and the papillomatous neoplasm/tumors were removed with large cup forceps and passed for permanent pathology evaluation. There was reasonable hemostasis noted. At this point a Shiley #6 XLT cuffed tracheostomy tube was in inserted the endotracheal tube was withdrawn which was completed without difficulty. There was no damage to the lips, teeth, tongue, or gums noted. The patient was then returned to the anesthesia staff and was allowed to emerge from general anesthesia. The patient then was transported to the post anesthesia recovery unit in stable condition. There were no complications.
[2019-01-14] MEDS: METOPROLOL TARTRATE 50 MG TABLET PO SCH (09:33)
[2019-01-14] MEDS: FERROUS SULFATE 325 MG TABLET PO SCH (09:33)
[2019-01-14] MEDS: METFORMIN HCL 500 MG TABLET PO SCH (09:33)
[2019-01-14] MEDS: ASCORBIC ACID 500 MG TABLET PO SCH (09:33)
[2019-01-14] MEDS: ISOSORBIDE MONONITRATE 30 MG TAB.ER.24H PO SCH (09:33)
[2019-01-14] MEDS: ASPIRIN 81 MG TABLET, ENT COATED PO SCH (09:33)
[2019-01-14] MEDS: HYDROCHLOROTHIAZIDE 25 MG TABLET PO SCH (09:34)
[2019-01-14] MEDS: FLUTICASONE/VILANTEROL 200-25 MCG/DOSE IH SCH (09:34)
[2019-01-14] MEDS: AMLODIPINE BESYLATE 5 MG TABLET PO SCH (09:34)
[2019-01-14] MEDS: DEXAMETHASONE 4 MG TABLET PO SCH (09:34)
[2019-01-14] MEDS: FUROSEMIDE 20 MG TABLET PO SCH (09:34)
[2019-01-14] MEDS: FLUTICASONE NASAL SPRAY 50 MCG/SPRY 120 SPRAY/16 GM NASL SCH (09:35)
[2019-01-14] MEDS: INSULIN LISPRO 100 UNIT/ML 3 ML VIAL SUBCUT SCH ×2 (09:35→12:19)
[2019-01-14 12:49] VITALS: BP 111/68
== END 2019-01-14 12:15 | disposition home or self-care (01) ==
LOC: OROUT 07:41 → 5 07:42
PROVIDERS: ADMIT Otolaryngology; ATTEND Otolaryngology
PROC: 0CJS8ZZ Inspection of Larynx, Via Natural or Artificial Opening Endoscopic (ICD-10-PCS; 2019-01-11)
PROC: 0BB18ZZ Excision of Trachea, Via Natural or Artificial Opening Endoscopic (ICD-10-PCS; 2019-01-11)
PROC: 3E02340 Introduction of Influenza Vaccine into Muscle, Percutaneous Approach (ICD-10-PCS; principal; 2019-01-14)
DX: D14.2 Benign neoplasm of trachea (principal); J95.09 Other tracheostomy complication; L92.8 Other granulomatous disorders of the skin and subcutaneous tissue; Y83.8 Other surgical procedures as the cause of abnormal reaction of the patient, or of later complication, without mention of misadventure at the time of the procedure; J95.03 Malfunction of tracheostomy stoma; T78.3XXS Angioneurotic edema, sequela; A63.0 Anogenital (venereal) warts; K08.109 Complete loss of teeth, unspecified cause, unspecified class; G47.33 Obstructive sleep apnea (adult) (pediatric); J43.9 Emphysema, unspecified; I10 Essential (primary) hypertension; E11.9 Type 2 diabetes mellitus without complications; E66.01 Morbid (severe) obesity due to excess calories; F14.11 Cocaine abuse, in remission; Z79.899 Other long term (current) drug therapy; Z79.4 Long term (current) use of insulin; Z79.82 Long term (current) use of aspirin; Z86.711 Personal history of pulmonary embolism; Z87.891 Personal history of nicotine dependence; Z87.892 Personal history of anaphylaxis; Z23 Encounter for immunization; Z79.02 Long term (current) use of antithrombotics/antiplatelets; Z86.19 Personal history of other infectious and parasitic diseases; Z88.6 Allergy status to analgesic agent; Z86.03 Personal history of neoplasm of uncertain behavior; Z68.41 Body mass index [BMI] 40.0-44.9, adult
CPT/HCPCS: 31830; 31526; 93005; 36415 ×2; 82962 ×4; 84132; 85025; 80048; 88305 ×2; 71046; 90686; 93010; 94640 ×5; 00320; G0008; G0378 ×4; J3490 ×9; J2250; J1815 ×6; J1100; J1885; J2001; J0330; J2405; J3301; J2704; 320; 90471; A4649; J3010; J8540

== ENCOUNTER 2019-06-07 11:35 | Emergency (ER) | payer OTHER, MEDICARE ==
--- NOTE | 2019-06-07 14:32 | ER Document Report ---
ED Medical Screen (RME) - General Chief Complaint: Abscess Stated Complaint: LUMP UNDER JAW - RIGHT Time Seen by Provider: 06/07/19 14:13 Primary Care Provider: JONY,MIL [Primary Care Provider] - Follow up as needed Notes: Patient is a 63-year-old male who presents emergency department with a chief complaint of a lump underneath the right jaw. Patient reports last night he noticed a lump underneath the right jaw. Patient denies difficulty breathing or swallowing. Patient does have a trach site that is permanent due to his significant history of angioedema to multiple medications and difficult airway. Patient denies fever. Patient denies any new medications or foods. Patient did see his primary care physician who did send him here to the emergency department for further evaluation. TRAVEL OUTSIDE OF THE [place] IN LAST 30 DAYS: No - Related Data Allergies/Adverse Reactions: codeine [Codeine] Allergy (Severe, Verified 06/07/19 14:13) Facial swelling hydrocodone bitartrate [From Vicodin] Allergy (Severe, Verified 06/07/19 14:13) Anaphylaxis lisinopril Allergy (Severe, Verified 06/07/19 14:13) Anaphylaxis tuberculin, purified protein deriva Allergy (Severe, Verified 06/07/19 14:13) PPD CONVERTER hydromorphone [From Dilaudid] Allergy (Verified 06/07/19 14:13) Difficulty breathing Iodine and Iodide Containing Produc Allergy (Verified 06/07/19 14:13) Anaphylaxis morphine Allergy (Verified 06/07/19 14:13) Itching oxycodone Allergy (Verified 06/07/19 14:13) Swelling of tongue All Opioids Allergy (Uncoded 06/07/19 14:13) Swellling Home Medications: [facility] Past Medical History - Social History Chew tobacco use (# tins/day): No Frequency of alcohol use: Occasional Drug Abuse: None - Past Medical History Cardiac Medical History: Reports: Hx Atrial Fibrillation, Hx Congestive Heart Failure, Hx Coronary Artery Disease - HIGH CHOL, Hx Hypercholesterolemia, Hx Hypertension, Hx Pulmonary Embolism Denies: Hx Heart Attack Pulmonary Medical History: Reports: Hx Asthma, Hx COPD, Hx Pneumonia - 7 years ago, Hx Sleep Apnea - hx only, not a current problem, no CPAP, Hx Tuberculosis Denies: Hx Bronchitis Neurological Medical History: Reports: Hx Cerebrovascular Accident - Pt states no deficits. Denies: Hx Seizures, Hx Parkinson's Disease Endocrine Medical History: Reports: Hx Diabetes Mellitus Type 2 Renal/ Medical History: Reports: Hx Kidney Stones - 1981. Denies: Hx Peritoneal Dialysis Malignancy Medical History: Denies Hx Lung Cancer GI Medical History: Reports: Hx Gastroesophageal Reflux Disease, Hx Hepatitis - Hep C, Hx Pancreatitis - 1988, Hx Ulcer Musculoskeltal Medical History: Reports Hx Arthritis - Back , Reports Hx Musculoskeletal Deformity, Reports Hx Musculoskeletal Trauma, Denies Hx Systemic Lupus Erythematosus Skin Medical History: Denies Hx Psoriasis Psychiatric Medical History: Denies: Hx Bipolar Disorder, Hx Dementia, Hx Depression, Hx Post Traumatic Stress Disorder, Hx Schizophrenia Traumatic Medical History: Reports: Hx Fractures, Hx Spine Fracture. Denies: Hx Traumatic Brain Injury Infectious Medical History: Reports: Hx Hepatitis - Hep C Past Surgical History: Reports: Hx Abdominal Surgery - Hernia repair, bowel resection, Hx Appendectomy, Hx Bowel Surgery - bowel resection 1988, Hx Her niorrhaphy, Hx Oral Surgery, Hx Orthopedic Surgery - Spinal fusion. Meniscus repair., Other - Tracheostomy on 05/19/2017. Denies: Hx Cholecystectomy, Hx Colostomy, Hx Coronary Artery Bypass Graft, Hx Gastric Bypass Surgery, Hx Pacemaker, Hx Tonsillectomy - Immunizations Immunizations up to date: Yes Hx Diphtheria, Pertussis, Tetanus Vaccination: Yes Physical Exam - Vital signs Vitals: Temp Pulse Resp BP Pulse Ox 98.2 F 83 20 124/79 93 06/07/19 11:40 06/07/19 11:40 06/07/19 11:40 06/07/19 11:40 06/07/19 11:40 Course - Re-evaluation Re-evalutation: 06/07/19 14:29 Patient does have a soft tissue mass noted underneath the right jawline and right lateral neck, this is not tender to touch. This is movable. I did consult with Dr. Tarango (radiology) regards to the patient's symptoms. Since the patient does have anaphylaxis to IV contrast he does recommend obtaining a CT soft tissue neck without to start. I have greeted and performed a rapid initial assessment of this patient. A comprehensive ED assessment and evaluation of the patient, analysis of test results and completion of the medical decision making process will be conducted by additional ED providers. 06/07/19 14:40 - Vital Signs Vital signs: Temp Pulse Resp BP Pulse Ox 98.2 F 83 20 124/79 93 06/07/19 11:40 06/07/19 11:40 06/07/19 11:40 06/07/19 11:40 06/07/19 11:40 Doctor's Discharge - Discharge [facility]errals[facility] [[facility]] - Follow up as needed
--- NOTE | 2019-06-07 15:36 | RADIOLOGY REPORT (SQ) ---
EXAM DESCRIPTION: CT SOFT TISSUE NECK WITHOUT COMPLETED DATE/TIME: 06/07/2019 3:04 pm REASON FOR STUDY: soft tissue swelling/right jawline/neck COMPARISON: 06/20/2018 TECHNIQUE: Noncontrast scanning from skull base through lung apices with review of bone, soft tissue and lung windows. Reconstructed coronal and sagittal MPR images reviewed. All images stored on PAC S. All CT scanners at this facility use dose modulation, iterative reconstruction, and/or weight based d osing when appropriate to reduce radiation dose to as low as reasonably achievable (ALARA). [facility]: Dose Right [facility]: CareDose [facility]: Dose Right [facility]: Teradose 4D [facility]: Smart [employer] RADIATION DOSE: CT Rad equipment meets quality standard of care and radiation dose reduction techniq ues were employed. CTDIvol: 18.3 mGy. DLP: 567 mGy-cm. mGy. LIMITATIONS: None. FINDINGS: SKULL BASE: Intact. MAJOR SALIVARY GLANDS: Asymmetrically enlarged right submandibular gland,, mildly increased from prio r. No discrete masses. No calcifications. Mild subcutaneous stranding along the submandibular pedro on, right greater than left. LYMPHADENOPATHY: Shotty cervical nodes without discrete adenopathy. MUCOSAL MASSES OR ASYMMETRY: No mucosal masses or asymmetry. LARYNX/CORDS: No abnormal findings. LUNG APICES: No evidence of acute intrathoracic process. Mild biapical pleural thickening. BONES: Intact. THYROID: Normal size. No masses. PARANASAL SINUSES: Clear. OTHER: Tracheostomy present. IMPRESSION: 1. No focal drainable collection. Ill-defined subcutaneous stranding within the subman dibular region, right greater than left, possibly representing cellulitis. 2. Asymmetrically enlarged right submandibular gland, mildly increased from prior. No discrete lesi on identified on this noncontrast exam. Findings may represent sialadenitis. No stones identified. TECHNICAL DOCUMENTATION: JOB ID: [id number] Quality ID # [id number]: Final reports with documentation of one or more dose reduction techniques (e.g., Au tomated exposure control, adjustment of the mA and/or kV according to patient size, use of iterative reconstruction technique) 2010 [employer]- All Rights Reserved Reading location - IP/workstation name: [email or web address]
[2019-06-07 15:41] LABS: ABSOLUTE EOSINOPHILS # (AUTO) 0.1 10^3/uL (0.0-0.6); ABSOLUTE LYMPHOCYTES (AUTO) 1.6 10^3/uL (0.5-4.7); ABSOLUTE MONOCYTES (AUTO) 0.6 10^3/uL (0.1-1.4); ABSOLUTE NEUT (AUTO) 4.1 10^3/uL (1.7-8.2); BASOPHILS % (AUTO) 0.5 % (0-2); EOSINOPHILS % (AUTO) 1.8 % (0-6); HEMATOCRIT 40.4 % (37.9-51.0); HEMOGLOBIN 13.6 g/dL (13.5-17.0); LYMPHOCYTES % (AUTO) 24.7 % (13-45); MEAN CORPUSCULAR HEMOGLOBIN 29.1 pg (27.0-33.4); MEAN CORPUSCULAR HGB CONC 33.7 g/dL (32.0-36.0); MEAN CORPUSCULAR VOLUME 87 fl (80-97); MONOCYTES % (AUTO) 9.9 % (3-13); PLATELET COUNT 142 10^3/uL (150-450); RED BLOOD COUNT 4.67 10^6/uL (4.35-5.55); RED CELL DISTRIBUTION WIDTH 15.1 % (11.5-14.0); SEGMENTED NEUTROPHILS % (AUTO) 63.1 % (42-78); TOTAL CELLS COUNTED % (AUTO) 100 %; WHITE BLOOD COUNT 6.5 10^3/uL (4.0-10.5)
[2019-06-07 15:58] LABS: ALKALINE PHOSPHATASE 174 U/L (38-126); ANION GAP 6 (5-19); ASPARTATE AMINO TRANSFERASE 20 U/L (17-59); BILIRUBIN,TOTAL 0.3 mg/dL (0.2-1.3); BLOOD UREA NITROGEN 18 mg/dL (7-20); CALCIUM 8.6 mg/dL (8.4-10.2); CARBON DIOXIDE 33 mmol/L (22-30); CHLORIDE 97 mmol/L (98-107); GLUCOSE 201 mg/dL (75-110); POTASSIUM 4.5 mmol/L (3.6-5.0); TOTAL PROTEIN 7.8 g/dL (6.3-8.2)
[2019-06-07] MEDS ORDERED: AMOXICILLIN TR/POT CLAVULANATE 500-125 MG TAB PO ONE (18:40)
--- NOTE | 2019-06-07 18:51 | ER Document Report ---
ED General - General Chief Complaint: Abscess Stated Complaint: LUMP UNDER JAW - RIGHT Time Seen by Provider: 06/07/19 14:13 Primary Care Provider: [facility] [Primary Care Provider] - Follow up as needed TRAVEL OUTSIDE OF THE [place] IN LAST 30 DAYS: No - HPI Notes: Patient is a 63-year-old male who presents to the emergency department for evaluation of a right jaw lump. He noticed it above his trach site and on the right inferior aspect of the neck. He stated it started last night. Denies any fevers or chills. No nausea or vomiting. He describes the pain as a soreness a nd rates it a 2 out of 10. Nothing seems to make it better or worse. - Related Data Allergies/Adverse Reactions: codeine [Codeine] Allergy (Severe, Verified 06/07/19 14:13) Facial swelling hydrocodone bitartrate [From Vicodin] Allergy (Severe, Verified 06/07/19 14:13) Anaphylaxis lisinopril Allergy (Severe, Verified 06/07/19 14:13) Anaphylaxis tuberculin, purified protein deriva Allergy (Severe, Verified 06/07/19 14:13) PPD CONVERTER hydromorphone [From Dilaudid] Allergy (Verified 06/07/19 14:13) Difficulty breathing Iodine and Iodide Containing Produc Allergy (Verified 06/07/19 14:13) Anaphylaxis morphine Allergy (Verified 06/07/19 14:13) Itching oxycodone Allergy (Verified 06/07/19 14:13) Swelling of tongue All Opioids Allergy (Uncoded 06/07/19 14:13) Swellling [facility]: [facility] Past Medical History - General Information source: Patient - Social History Smoking Status: Former Smoker Chew tobacco use (# tins/day): No Frequency of alcohol use: Occasional Drug Abuse: None Family History: Arthritis, CAD - Mother and brother, CVA, DM, Hyperlipidemia, Hypertension, Malignancy Patient has suicidal ideation: No Patient has homicidal ideation: No - Past Medical History Cardiac Medical History: Reports: Hx Atrial Fibrillation, Hx Congestive Heart Failure, Hx Coronary Artery Disease - HIGH CHOL, Hx Hypercholesterolemia, Hx Hypertension, Hx Pulmonary Embolism Denies: Hx Heart Attack Pulmonary Medical History: Reports: Hx Asthma, Hx COPD, Hx Pneumonia - 7 years ago, Hx Sleep Apnea - hx only, not a current problem, no CPAP, Hx Tuberculosis Denies: Hx Bronchitis Neurological Medical History: Reports: Hx Cerebrovascular Accident - Pt states no deficits. Denies: Hx Seizures, Hx Parkinson's Disease Endocrine Medical History: Reports: Hx Diabetes Mellitus Type 2 Renal/ Medical History: Reports: Hx Kidney Stones - 1981. Denies: Hx Peritoneal Dialysis Malignancy Medical History: Denies Hx Lung Cancer GI Medical History: Reports: Hx Gastroesophageal Reflux Disease, Hx Hepatitis - Hep C, Hx Pancreatitis - 1988, Hx Ulcer Musculoskeletal Medical History: Reports Hx Arthritis - Back , Reports Hx Musculoskeletal Deformity, Reports Hx Musculoskeletal Trauma, Denies Hx Systemic Lupus Erythematosus Skin Medical History: Denies Hx Psoriasis Psychiatric Medical History: Denies: Hx Bipolar Disorder, Hx Dementia, Hx Depression, Hx Post Traumatic Stress Disorder, Hx Schizophrenia Traumatic Medical History: Reports: Hx Fractures, Hx Spine Fracture. Denies: Hx Traumatic Brain Injury Infectious Medical History: Reports: Hx Hepatitis - Hep C Past Surgical History: Reports: Hx Abdominal Surgery - Hernia repair, bowel resection, Hx Appendectomy, Hx Bowel Surgery - bowel resection 1988, Hx Hernio rrhaphy, Hx Oral Surgery, Hx Orthopedic Surgery - Spinal fusion. Meniscus repair., Other - Tracheostomy on 05/19/2017. Denies: Hx Cholecystectomy, Hx Colostomy, Hx Coronary Artery Bypass Graft, Hx Gastric Bypass Surgery, Hx Pacemaker, Hx Tonsillectomy - Immunizations Immunizations up to date: Yes Hx Diphtheria, Pertussis, Tetanus Vaccination: Yes Hx Pneumococcal Vaccination: 04/12/17 Review of Systems - Review of Systems EENT: See HPI -: Yes All other systems reviewed and negative Physical Exam - Vital signs Vitals: Temp Pulse Resp BP Pulse Ox 98.2 F 83 20 124/79 93 06/07/19 11:40 06/07/19 11:40 06/07/19 11:40 06/07/19 11:40 06/07/19 11:40 - Notes Notes: This is a very pleasant 63-year-old male that appears to stated age, no acute distress. He is tracheostomy in place. Head is normocephalic and atraumatic, pupils are equal round, reactive to light. Oral mucosa is moist. Upon lifting the tongue, a small sialolith was noted in the end of the duct from the submandibular salivary gland. It was removed with mild pressure. Milking of the duct did not produce any sort of purulent fluid. Patient does have swelling over the submandibular gland inferiorly to the mandible, no significant calor or erythema is noted. Tracheostomy site is without drainage, erythema, induration. Heart is regular rate and rhythm, lungs are clear to station bilaterally. Abdomen soft, nontender, normoactive bowel sounds. Skin is warm and dry. Patient is awake and alert, neurological exam is nonfocal. Course - Re-evaluation Re-evalutation: 06/07/19 18:48 Patient presents to the emergency department for evaluation. He has swelling in his submandibular gland. I did successfully remove a sialolith from under the t ongue. I suspect that this is the etiology of his symptoms. Given his history is a diabetic and the diffuse swelling noted in the submandibular gland, will cover with Augmentin. He is given his first dose here. I will send him home with a prescription for same. He is told that he should use sialagogues, sour candies, to continue to improve secretions from the gland. He is to follow-up with primary care this week, return to the ED with worsening or new concerning symptoms of any sort. - Vital Signs Vital signs: Temp Pulse Resp BP Pulse Ox 98.2 F 83 20 124/79 93 06/07/19 11:40 06/07/19 11:40 06/07/19 11:40 06/07/19 11:40 06/07/19 11:40 - Laboratory Result Diagrams: 06/07/19 15:10 06/07/19 15:10 Laboratory results interpreted by me: 06/07/19 06/07/19 15:10 15:10 RDW 15.1 H Plt Count 142 L Sodium 136.4 L Chloride 97 L Carbon Dioxide 33 H Glucose 201 H Alkaline Phosphatase 174 H - Diagnostic Test Radiology reviewed: Reports reviewed Radiology results interpreted by me: 06/07/19 18:[address] 06/07/19 14:40 IMPRESSION: 1. No focal drainable collection. Ill-defined subcutaneous stranding within the submandibular region, right greater than left, possibly representing cellulitis. 2. Asymmetrically enlarged right submandibular gland, mildly increased from prior. No discrete lesion identified on this noncontrast exam. Findings may represent sialadenitis. No stones identified. Discharge - Discharge Clinical Impression: Submandibular sialolithiasis, Sialoadenitis of submandibular gland Condition: Stable Disposition: HOME, SELF-CARE Additional Instructions: I was able to remove a small stone from the duct from your salivary gland, located underneath the right side of your jaw. This is the likely cause of your pain. Please suck on sour candies, anything to encourage salivation. Please take the antibiotic as prescribed until it is gone. If you develop fevers, increased pain, difficulty swallowing or breathing, or any other new or concerning symptoms, please return immediately to the emergency department for evaluation. Prescriptions: Amoxicillin/Potassium Clav [Augmentin 875-125 Tablet] 1 tab PO BID #20 tab Referrals: [facility] [Primary Care [facility]] - Follow up as needed
[2019-06-07 19:21] VITALS: BP 131/62
== END 2019-06-07 19:21 | disposition home or self-care (01) ==
LOC: ER 11:35
DX: K11.5 Sialolithiasis (principal); M27.2 Inflammatory conditions of jaws; R22.0 Localized swelling, mass and lump, head; Z93.0 Tracheostomy status; Z88.8 Allergy status to other drugs, medicaments and biological substances; Z87.891 Personal history of nicotine dependence; I50.9 Heart failure, unspecified; I25.10 Atherosclerotic heart disease of native coronary artery without angina pectoris; I11.0 Hypertensive heart disease with heart failure; J44.9 Chronic obstructive pulmonary disease, unspecified; E11.9 Type 2 diabetes mellitus without complications
CPT/HCPCS: 36415; 70490; 80053; 85025; 99284

== ENCOUNTER → 2019-06-19 | Outpatient (CLI) | payer MEDICARE, OTHER ==
--- NOTE | 2019-06-19 13:23 | RADIOLOGY REPORT (SQ) ---
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 The route of agent administration: Intravenous. ADDITIONAL DRUGS AND DOSES: None. TECHNIQUE: Routine delayed images at 3 hours post radionuclide injection acquired of the bony skelet on including anterior and posterior whole-body projections and additional focused images as needed. LIMITATIONS: None. FINDINGS: BONES: There is degenerative uptake in the right knee. Apparent left knee arthroplasty wi th associated uptake in the bones. No other significant abnormal skeletal uptake to suggest metastat ic disease is to bone. KIDNEYS: Symmetric excretion without obstruction. OTHER: No other significant finding. IMPRESSION: There is no evidence of metastatic disease to bone. COMMENT: Quality measure 147: Current bone scan is compared with any available plain radiographs, p rior bone scans, and CT/MRI. TECHNICAL DOCUMENTATION: JOB ID: [id number] 2010 [employer]- All Rights Reserved Reading location - IP/workstation name: [email or web address]
== END ==
LOC: RAD 08:29
PROVIDERS: ATTEND Urology
DX: C61 Malignant neoplasm of prostate (principal)
CPT/HCPCS: 78306; A9561; Q9969

== ENCOUNTER 2019-11-02 13:31 | Emergency (ER) | payer OTHER, MEDICARE ==
[2019-11-02] MEDS ORDERED: NITROGLYCERIN 0.4 MG/TAB 25 TAB/BOTTLE SL PRN (14:07)
[2019-11-02] MEDS ORDERED: ASPIRIN 81 MG TABLET, CHEWABLE PO ONE (14:07)
--- NOTE | 2019-11-02 14:07 | ER Document Report ---
ED Medical Screen (RME) - General Chief Complaint: Palpitations Stated Complaint: PALPITATIONS Time Seen by Provider: 11/02/19 13:54 Primary Care Provider: LAYLA ORTIZ JR, MD [Primary Care Provider] - Follow up as needed Mode of Arrival: Wheelchair Information source: Patient, Relative Notes: Patient is a 63-year-old male comes emergency room complaining of palpitations and chest discomfort. Patient states that around 12:30 PM he was at home and his heart rate went up to 102 blood pressure 149/91. At 130 he checked it again his heart rate was 103. Patient states he at that time he also has some left anterior chest pain and is got some weakness on the left upper arm. Patient is currently being treated for prostate cancer and has had 3 consecutive days of radiation treatment he has had no chemotherapy. He has a history of insulin- dependent diabetes, congestive heart failure, he has a tracheostomy secondary to history of 7 time angioedema on the seventh time they could not intubate him so they use the trach and are currently afraid to remove it. He also states that he took a baby aspirin prior to coming in. 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 Physical examination: Patient is a well-nourished well-developed 63-year-old male though in no distress currently he does appear mildly short of breath with a slight ill appearance. Cardiac: Patient has a tachycardic rate of 102 bpm on triage. Lungs: Bilateral breath sounds breath sounds are increased throughout no rhonchi rales or wheeze are heard. Abdomen: Distended nontender to palpation in the sitting position. Lower extremities: No edema noted at this time. I have greeted and performed a rapid initial assessment of this patient. A comprehensive ED assessment and evaluation of the patient, analysis of test results and completion of the medical decision making process will be conducted by additional ED providers. Dictation of this chart was performed using voice recognition software; therefore, there may be some unintended grammatical errors. TRAVEL OUTSIDE OF THE [place] IN LAST 30 DAYS: No - Related Data Allergies/Adverse Reactions: codeine [Codeine] Allergy (Severe, Verified 11/02/19 14:00) Facial swelling hydrocodone bitartrate [From Vicodin] Allergy (Severe, Verified 11/02/19 14:00) Anaphylaxis lisinopril Allergy (Severe, Verified 11/02/19 14:00) Anaphylaxis tuberculin, purified protein deriva Allergy (Severe, Verified 11/02/19 14:00) PPD CONVERTER hydromorphone [From Dilaudid] Allergy (Verified 11/02/19 14:00) Difficulty breathing Iodine and Iodide Containing Produc Allergy (Verified 11/02/19 14:00) Anaphylaxis morphine Allergy (Verified 11/02/19 14:00) Itching oxycodone Allergy (Verified 11/02/19 14:00) Swelling of tongue All Opioids Allergy (Uncoded 11/02/19 14:00) Swellling Past Medical History - Past Medical History Cardiac Medical History: Reports: Hx Atrial Fibrillation, Hx Congestive Heart Failure, Hx Coronary Artery Disease - HIGH CHOL, Hx Hypercholesterolemia, Hx Hypertension, Hx Pulmonary Embolism Denies: Hx Heart Attack Pulmonary Medical History: Reports: Hx Asthma, Hx COPD, Hx Pneumonia - 7 years ago, Hx Sleep Apnea - hx only, not a current problem, no CPAP, Hx Tuberculosis Denies: Hx Bronchitis Neurological Medical History: Reports: Hx Cerebrovascular Accident - Pt states no deficits. Denies: Hx Seizures, Hx Parkinson's Disease Endocrine Medical History: Reports: Hx Diabetes Mellitus Type 2 Renal/ Medical History: Reports: Hx Kidney Stones - 1981. Denies: Hx Peritoneal Dialysis Malignancy Medical History: Denies Hx Lung Cancer GI Medical History: Reports: Hx Gastroesophageal Reflux Disease, Hx Hepatitis - Hep C, Hx Pancreatitis - 1988, Hx Ulcer Musculoskeltal Medical History: Reports Hx Arthritis - Back , Reports Hx Musculoskeletal Deformity, Reports Hx Musculoskeletal Trauma, Denies Hx Systemic Lupus Erythematosus Skin Medical History: Denies Hx Psoriasis Psychiatric Medical History: Denies: Hx Bipolar Disorder, Hx Dementia, Hx Depression, Hx Post Traumatic Stress Disorder, Hx Schizophrenia Traumatic Medical History: Reports: Hx Fractures, Hx Spine Fracture. Denies: Hx Traumatic Brain Injury Infectious Medical History: Reports: Hx Hepatitis - Hep C Past Surgical History: Reports: Hx Abdominal Surgery - Hernia repair, bowel resection, Hx Appendectomy, Hx Bowel Surgery - bowel resection 1988, Hx Herniorrhaphy, Hx Oral Surgery, Hx Orthopedic Surgery - Spinal fusion. Meniscus repair., Other - Tracheostomy on 05/19/2017. Denies: Hx Cholecystectomy, Hx Colostomy, Hx Coronary Artery Bypass Graft, Hx Gastric Bypass Surgery, Hx Pacemaker, Hx Tonsillectomy - Immunizations Immunizations up to date: Yes Hx Diphtheria, Pertussis, Tetanus Vaccination: Yes Physical Exam - Vital signs Vitals: Temp Pulse Resp BP Pulse Ox 98.9 F 102 H 21 H 140/88 H 95 11/02/19 13:41 11/02/19 13:41 11/02/19 13:41 11/02/19 13:41 11/02/19 13:41 Course - Vital Signs Vital signs: Temp Pulse Resp BP Pulse Ox 98.9 F 102 H 21 H 140/88 H 95 11/02/19 13:41 11/02/19 13:41 11/02/19 13:41 11/02/19 13:41 11/02/19 13:41 Doctor's Discharge - Discharge Referrals: LAYLA ORTIZ JR, MD [Primary Care Provider] - Follow up as needed
--- NOTE | 2019-11-02 14:51 | RADIOLOGY REPORT (SQ) ---
EXAM DESCRIPTION: CHEST SINGLE VIEW IMAGES COMPLETED DATE/TIME: 11/02/2019 1:36 pm REASON FOR STUDY: Chest pain COMPARISON: 12/23/2018. 06/22/2017. CT angiography chest, 12/29/2016. EXAM PARAMETERS: NUMBER OF VIEWS: One view. TECHNIQUE: Single frontal radiographic view of the chest acquired. RADIATION DOSE: NA LIMITATIONS: None. FINDINGS: LUNGS AND PLEURA: Pleural and parenchymal scarring in the right middle lobe is stable from previous examinations. No focal consolidation or pleural effusion. No pneumothorax. MEDIASTINUM AND HILAR STRUCTURES: No masses. Contour normal. HEART AND VASCULAR STRUCTURES: Heart normal in size. Normal vasculature. BONES: No acute findings. HARDWARE: Tracheostomy in the upper trachea. OTHER: No other significant finding. IMPRESSION: No acute cardiopulmonary disease. Chronic pleural and parenchymal scarring in the right middle lobe is stable. TECHNICAL DOCUMENTATION: JOB ID: [id number] 2010 [employer]- All Rights Reserved Reading location - IP/workstation name: [email or web address]
[2019-11-02 14:55] LABS: ABSOLUTE EOSINOPHILS # (AUTO) 0.1 10^3/uL (0.0-0.6); ABSOLUTE LYMPHOCYTES (AUTO) 0.7 10^3/uL (0.5-4.7); ABSOLUTE MONOCYTES (AUTO) 0.5 10^3/uL (0.1-1.4); ABSOLUTE NEUT (AUTO) 3.6 10^3/uL (1.7-8.2); BASOPHILS % (AUTO) 0.5 % (0-2); EOSINOPHILS % (AUTO) 1.3 % (0-6); HEMATOCRIT 39.8 % (37.9-51.0); HEMOGLOBIN 13.2 g/dL (13.5-17.0); LYMPHOCYTES % (AUTO) 13.7 % (13-45); MEAN CORPUSCULAR HEMOGLOBIN 28.8 pg (27.0-33.4); MEAN CORPUSCULAR VOLUME 87 fl (80-97); PLATELET COUNT 123 10^3/uL (150-450); RED BLOOD COUNT 4.57 10^6/uL (4.35-5.55); RED CELL DISTRIBUTION WIDTH 14.9 % (11.5-14.0); SEGMENTED NEUTROPHILS % (AUTO) 73.5 % (42-78); TOTAL CELLS COUNTED % (AUTO) 100 %; WHITE BLOOD COUNT 4.8 10^3/uL (4.0-10.5)
[2019-11-02 15:13] LABS: ALBUMIN 4.1 g/dL (3.5-5.0); ALKALINE PHOSPHATASE 123 U/L (38-126); ANION GAP 8 (5-19); ASPARTATE AMINO TRANSFERASE 25 U/L (17-59); BILIRUBIN,DIRECT 0.1 mg/dL (0.0-0.4); BILIRUBIN,TOTAL 0.4 mg/dL (0.2-1.3); BLOOD UREA NITROGEN 14 mg/dL (7-20); CALCIUM 8.6 mg/dL (8.4-10.2); CARBON DIOXIDE 29 mmol/L (22-30); CHLORIDE 99 mmol/L (98-107); CREATINE KINASE 308 U/L (55-170); GLUCOSE 152 mg/dL (75-110); POTASSIUM 3.9 mmol/L (3.6-5.0); TOTAL PROTEIN 7.8 g/dL (6.3-8.2)
[2019-11-02 15:24] LABS: NT PRO BNP 51 pg/mL (<125)
[2019-11-02 15:25] LABS: TROPONIN I < 0.012 ng/mL
--- NOTE | 2019-11-02 15:54 | ER Document Report ---
ED General - General Chief Complaint: Chest Pain Stated Complaint: PALPITATIONS Time Seen by Provider: 11/02/19 13:54 Primary Care Provider: LAYLA ORTIZ JR, MD [NO LOCAL MD] - Follow up as needed Mode of Arrival: Wheelchair TRAVEL OUTSIDE OF THE [place] IN LAST 30 DAYS: No - HPI Notes: Chief complaint: Transient chest pain and dyspnea HPI: 63-year-old male with history of multiple chronic medical problems presently receiving XRT for prostate CA now presenting with 2-day history intermittent transient sharp discomfort left anterior chest area intermittently radiating to arm and not associated with exertion. This has been associated with some mild dyspnea. Patient has had a past history of PE but continues to take Eliquis as prescribed and insists that he is not missed any doses. He has no hemoptysis. He has no fever. Patient is followed by [facility] in [place]. Currently on full CODE STATUS. - Related Data Allergies/Adverse Reactions: codeine [Codeine] Allergy (Severe, Verified 11/02/19 14:00) Facial swelling hydrocodone bitartrate [From Vicodin] Allergy (Severe, Verified 11/02/19 14:00) Anaphylaxis lisinopril Allergy (Severe, Verified 11/02/19 14:00) Anaphylaxis tuberculin, purified protein deriva Allergy (Severe, Verified 11/02/19 14:00) PPD CONVERTER hydromorphone [From Dilaudid] Allergy (Verified 11/02/19 14:00) Difficulty breathing Iodine and Iodide Containing Produc Allergy (Verified 11/02/19 14:00) Anaphylaxis morphine Allergy (Verified 11/02/19 14:00) Itching oxycodone Allergy (Verified 11/02/19 14:00) Swelling of tongue All Opioids Allergy (Uncoded 11/02/19 14:00) Swellling Past Medical History - General Information source: Patient, Relative, [facility] Records - Social History Smoking Status: Former Smoker Chew tobacco use (# tins/day): No Frequency of alcohol use: Occasional Drug Abuse: None Family History: Arthritis, CAD, CVA, DM, Hyperlipidemia, Hypertension, M alignancy Patient has homicidal ideation: No - Past Medical History Cardiac Medical History: Reports: Hx Atrial Fibrillation, Hx Congestive Heart Failure, Hx Coronary Artery Disease - HIGH CHOL, Hx Hypercholesterolemia, Hx Hypertension, Hx Pulmonary Embolism Denies: Hx Heart Attack Pulmonary Medical History: Reports: Hx Asthma, Hx COPD, Hx Pneumonia - 7 years ago, Hx Sleep Apnea - hx only, not a current problem, no CPAP, Hx Tuberculosis Denies: Hx Bronchitis Neurological Medical History: Reports: Hx Cerebrovascular Accident - Pt states no deficits. Denies: Hx Seizures, Hx Parkinson's Disease Endocrine Medical History: Reports: Hx Diabetes Mellitus Type 2 Renal/ Medical History: Reports: Hx Kidney Stones - 1981. Denies: Hx Peritoneal Dialysis Malignancy Medical History: Denies Hx Lung Cancer GI Medical History: Reports: Hx Gastroesophageal Reflux Disease, Hx Hepatitis - Hep C, Hx Pancreatitis - 1988, Hx Ulcer Musculoskeletal Medical History: Reports Hx Arthritis - Back , Reports Hx Musculoskeletal Deformity, Reports Hx Musculoskeletal Trauma, Denies Hx Systemic Lupus Erythematosus Skin Medical History: Denies Hx Psoriasis Psychiatric Medical History: Denies: Hx Bipolar Disorder, Hx Dementia, Hx Depression, Hx Post Traumatic Stress Disorder, Hx Schizophrenia Traumatic Medical History: Reports: Hx Fractures, Hx Spine Fracture. Denies: Hx Traumatic Brain Injury Infectious Medical History: Reports: Hx Hepatitis - Hep C Past Surgical History: Reports: Hx Abdominal Surgery - Hernia repair, bowel resection, Hx Appendectomy, Hx Bowel Surgery - bowel resection 1988, Hx Herniorrhaphy, Hx Oral Surgery, Hx Orthopedic Surgery - Spinal fusion. Meniscus repair., Other - Tracheostomy on 05/19/2017. Denies: Hx Cholecystectomy, Hx Colostomy, Hx Coronary Artery Bypass Graft, Hx Gastric Bypass Surgery, Hx Pacemaker, Hx Tonsillectomy - Immunizations Immunizations up to date: Yes Hx Diphtheria, Pertussis, Tetanus Vaccination: Yes Hx Pneumococcal Vaccination: 04/12/17 Review of Systems - Review of Systems Notes: Constitutional: Negative for fever. HENT: Negative for sore throat. Eyes: Negative for visual changes. Cardiovascular: As per HPI. Respiratory: As per HPI. Gastrointestinal: Negative for abdominal pain, vomiting or diarrhea. Genitourinary: Negative for dysuria. Musculoskeletal: Negative for back pain. Skin: Negative for rash. Neurological: Negative for headaches, weakness or numbness. 10 point ROS negative except as marked above and in HPI. Physical Exam - Vital signs Vitals: Temp Pulse Resp BP Pulse Ox 98.9 F 102 H 21 H 140/88 H 95 11/02/19 13:41 11/02/19 13:41 11/02/19 13:41 11/02/19 13:41 11/02/19 13:41 - Notes Notes: GENERAL: Obese male approximately stated age appearing in no acute distress. SKIN: Good turgor no rashes. HEAD: Normocephalic atraumatic. EYES: PERRLA. EOMI. Conjunctivae and sclerae clear. EARS: CANALS AND TMS CLEAR. NOSE: CLEAR. MOUTH: Moist mucosa. Good dentition. No stridor or edema. No drooling. NECK: Tracheostomy present. Supple. No masses or thyromegaly. No adenopathy. Carotids 2+ without bruits. No JVD. BACK: Symmetrical without tenderness. CHEST: Reproducible pain with palpation left anterior chest area. Respirations unlabored. Breath sounds clear and symmetrical. HEART: Regular rhythm. No murmur gallop or rub. ABDOMEN: Soft nontender without masses, organomegaly or rebound. Bowel sounds normally active. No bruits. GENITALIA: Deferred. EXTREMITIES: Trace bilateral pretibial edema. No calf tenderness. Cap refill less than 1.5 seconds. Dorsalis pedis and posterior tibial pulses 3+ and symmetrical. NEUROLOGICAL: GCS 15. Alert and oriented x3. Normal gait. Fluent speech. Cranial nerves II through XII intact. Sensorimotor and cerebellar normal. Normal tone. PSYCHIATRIC: Appropriate affect. Course - Re-evaluation Re-evalutation: 11/02/19 18:53 Patient's EKG is unchanged from baseline. He has had 2- troponins here. We also did a VQ scan of the lung which was negative for PE. His pain is reproducible with palpation. I think this is likely musculoskeletal. He will continue current medications and follow-up with his primary provider. Findings, clinical impression and plan of treatment have been discussed with patient/family. Understanding of current findings and recommendations has been acknowledged by them and there is agreement regarding disposition and follow-up. - Vital Signs Vital signs: Temp Pulse Resp BP Pulse Ox 98.9 F 102 H 16 139/94 H 95 11/02/19 14:00 11/02/19 13:41 11/02/19 17:01 11/02/19 17:01 11/02/19 17:01 - Laboratory Result Diagrams: 11/02/19 14:41 11/02/19 14:41 Laboratory results interpreted by me: 11/02/19 11/02/19 14:41 14:41 Hgb 13.2 L RDW 14.9 H Plt Count 123 L Sodium 135.5 L Glucose 152 H Creatine Kinase 308 H - Diagnostic Test Radiology reviewed: Reports reviewed - Negative VQ scan of the lung per radiologist - EKG Interpretation by Me Additional EKG results interpreted by me: 11/02/19 15:59 Twelve-lead EKG from 1338 hrs. is reviewed contemporaneously by me demonstrating a sinus tachycardia with a rate of 106 normal QRS axis of +27 degrees. There is QT prolongation with a QTC of [address]/T wave changes are noted. When compared with prior tracing of 12/23/2018 we note that the patient has increased heart rate slightly and has new QT prolongation. Indication for current study: Chest pain Discharge - Discharge Clinical Impression: Chest wall pain Disposition: HOME, SELF-CARE Additional Instructions: Continue current medications. Follow-up with your primary provider as directed. Return here as needed for new or worsening symptoms: Pain that is worsening or unimproved Uncontrolled vomiting High fever or shaking chills Overall worsening Referrals: LAYLA ORTIZ JR, MD [NO LOCAL MD] - Follow up as needed
--- NOTE | 2019-11-02 17:23 | RADIOLOGY REPORT (SQ) ---
EXAM DESCRIPTION: NM LUNG PERFUSION SCAN IMAGES COMPLETED DATE/TIME: 11/02/2019 4:56 pm REASON FOR STUDY: CP, dyspnea COMPARISON: None. RADIONUCLIDE AND DOSE: 5.3 millicuries TC-99m MAA The route of agent administration: Intravenous TECHNIQUE: Eight views of the lungs acquired following injection of MAA. LIMITATIONS: None. FINDINGS: PERFUSION: Perfusion images with normal homogenous activity and no wedge-shaped or segment al defects. OTHER: No other significant finding. IMPRESSION: NORMAL PERFUSION LUNG SCAN. TECHNICAL DOCUMENTATION: JOB ID: [id number] 2010 [employer]- All Rights Reserved Reading location - IP/workstation name: [email or web address]
[2019-11-02 19:07] VITALS: BP 124/79
--- NOTE | 2019-11-03 01:06 | EKG REPORT ---
SEVERITY:- ABNORMAL ECG - SINUS TACHYCARDIA MULTIPLE ATRIAL PREMATURE COMPLEXES PROBABLE LEFT ATRIAL ABNORMALITY PROBABLE POSTERIOR INFARCT PROLONGED QT INTERVAL : Confirmed by: Brad Piper 03-Nov-2019 01:05:56
== END 2019-11-02 19:17 | disposition home or self-care (01) ==
LOC: ER 13:31
DX: R07.89 Other chest pain (principal); J44.9 Chronic obstructive pulmonary disease, unspecified; R60.0 Localized edema; R00.0 Tachycardia, unspecified; E66.9 Obesity, unspecified; C61 Malignant neoplasm of prostate; I25.10 Atherosclerotic heart disease of native coronary artery without angina pectoris; I10 Essential (primary) hypertension; E11.9 Type 2 diabetes mellitus without complications; Z86.711 Personal history of pulmonary embolism; Z79.01 Long term (current) use of anticoagulants; Z93.0 Tracheostomy status; Z87.892 Personal history of anaphylaxis; Z88.6 Allergy status to analgesic agent; Z88.5 Allergy status to narcotic agent; Z88.8 Allergy status to other drugs, medicaments and biological substances; Z88.7 Allergy status to serum and vaccine; Z87.891 Personal history of nicotine dependence
CPT/HCPCS: 93005; 99285; 36415; 82550; 83735; 85025; 85730; 80053; 84484; 83880; 71045; 78580; 93010; A9540; Q9969